=== PATIENT | female | born 1970 | race Caucasian/White ===

== ENCOUNTER 2016-08-02 12:22 | Emergency (ER) | payer MEDICARE, MEDICAID ==
[~2016-08-02] VITALS: Ht 165.1 cm; Wt 125.2 kg
[~2016-08-02 12:22] MED LIST: ARIP20TA PO; ARIP2TAB10 PO; ARMO250T3 PO; CHLO473M4 MM; CLIN300C3 PO; DESV100T PO; ESCI20TA2; GABA-488 PO; HYDR-229 PO; HYDR-3812 PO; IBUP200C92 PO; KETO-22 PO; LAMO150T2 PO; LEVO500T69 PO; LURA80TA PO; METF500T4 PO; MTF500T; NAPR-243 PO; NAPR500T3 PO; NUVIGIL; ORPH100T PO; PHEN200T27 PO; PRD20T PO; QUET50TA43 PO; SULF1TAB38 PO; SUMA100T3 PO; TIZA2TAB3 PO; TOPI200T19 PO; TRAM50TA2 PO; ZPR80C
[2016-08-02] MEDS ORDERED: HYDR50TA3 PO (13:03)
[2016-08-02] MEDS ORDERED: MECL-106 PO (13:03)
[2016-08-02] MEDS ORDERED: OXYB5TAB9 PO (13:03)
[2016-08-02] MEDS ORDERED: PROP20TA5 PO (13:03)
[2016-08-02] MEDS ORDERED: CITA20TA7 PO (13:03)
[2016-08-02] MEDS ORDERED: ATOR10TA66 PO (13:03)
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
[2016-08-02 13:39] LABS: BASOPHILS # (AUTO) 0.1 10^3/uL (0.0-0.1); BASOPHILS % (AUTO) 1 % (0-10); EOSINOPHILS # (AUTO) 0.2 10^3/uL (0.0-0.3); EOSINOPHILS % (AUTO) 2 % (0-10); LYMPHOCYTES # (AUTO) 3.7 X 10^3 (1.0-4.0); LYMPHOCYTES % (AUTO) 28 % (12-44); MEAN CORPUSCULAR HEMOGLOBIN 30 PG (25-34); MEAN CORPUSCULAR HGB CONC 35 G/DL (32-36); MEAN CORPUSCULAR VOLUME 85 FL (80-99); MEAN PLATELET VOLUME 10.7 FL (7.4-10.4); MONOCYTES % (AUTO) 8 % (0-12); NEUTROPHILS # (AUTO) 8.5 X 10^3 (1.8-7.8); NEUTROPHILS % (AUTO) 63 % (42-75); PLATELET COUNT 326 10^3/uL (130-400); RED BLOOD COUNT 5.08 10^6/uL (4.35-5.85); RED CELL DISTRIBUTION WIDTH 13.2 % (10.0-14.5); WHITE BLOOD COUNT 13.5 10^3/uL (4.3-11.0)
[2016-08-02 13:56] LABS: ALANINE AMINOTRANSFERASE 30 U/L (0-55); ANION GAP 11 MMOL/L (5-14); ASPARTATE AMINO TRANSFERASE 12 U/L (5-34); BILIRUBIN,TOTAL 0.2 MG/DL (0.1-1.0); BLOOD UREA NITROGEN 13 MG/DL (7-18); BUN/CREATININE RATIO 15; CALCIUM 8.8 MG/DL (8.5-10.1); CARBON DIOXIDE 16 MMOL/L (21-32); CHLORIDE 111 MMOL/L (98-107); CREATININE SERUM 0.84 MG/DL (0.60-1.30); GFR ESTIMATED > 60; GLUCOSE 105 MG/DL (70-105); POTASSIUM 3.9 MMOL/L (3.6-5.0); SODIUM 138 MMOL/L (135-145); TOTAL PROTEIN 6.9 G/DL (6.4-8.2)
--- NOTE | 2016-08-02 14:26 | Diagnostic Imaging Report ---
PROCEDURE: CT urinary tract, rule out kidney stone. TECHNIQUE: Multiple contiguous axial images were obtained through the abdomen and pelvis without the use of intravenous contrast. INDICATION: Right lower quadrant pain The previous CT chest, abdomen and pelvis exam of 07/21/13, noted nonobstructive calculi involving the left kidney. There is no sign of an acute abnormality however. On this exam, there are now nonobstructive calculi involving both kidneys. The largest calculus on the left measures 1.5 CM. The largest calculus on the right measures only 0.3 CM. There is no evidence for urolithiasis and the kidneys do not seem to be obstructed. The urinary bladder is grossly unremarkable. The uterus is not enlarged. There is no pelvic mass or free fluid collection noted. The appendix was visualized and the appendix is not abnormally thickened. The liver, spleen, pancreas, adrenals, gallbladder, aorta and inferior vena cava show no sign of an acute abnormality. The stomach is not well-distended and consequently difficult to assess. The lung bases are generally clear. The bone windows show no evidence for a fracture or for a destructive lesion. There is degenerative disc and bony disease at L3-4, L4-5 and L5-S1. IMPRESSION: 1. There are nonobstructive calculi within both kidneys but there is no sign of obstruction of either collecting system by a calculus. 2. No other acute abnormality of the the abdomen or pelvis is noted. In particular there is no sign of appendicitis. 3. There is degenerative disc and bony disease at L3-4, L4-5 and L5-S1. Dictated by: Dictated on workstation # [id number]
[2016-08-02 14:41] LABS: BILIRUBIN,URINE NEGATIVE (NEGATIVE); KETONES,URINE NEGATIVE (NEGATIVE); LEUKOCYTE ESTERASE ,URINE 1+ (NEGATIVE); NITRITE,URINE NEGATIVE (NEGATIVE); PH,URINE 7 (5-9); PROTEIN,URINE 1+ (NEGATIVE); UROBILINOGEN,URINE NORMAL (NORMAL)
[2016-08-02] MEDS ORDERED: KETOROLAC 30 MG/ML VIAL IVP ONE (15:00)
[2016-08-02 15:02] LABS: CALCIUM OXALATE CRYSTALS,UR MODERATE /LPF
[2016-08-02 15:23] VITALS: BP 134/91
== END 2016-08-02 15:23 | disposition home or self-care (01) ==
LOC: EDUNIT# 12:22 → ER 12:24
DX: R10.31 Right lower quadrant pain (principal); N20.0 Calculus of kidney; M51.36 Other intervertebral disc degeneration, lumbar region; R11.2 Nausea with vomiting, unspecified; E11.9 Type 2 diabetes mellitus without complications; F17.210 Nicotine dependence, cigarettes, uncomplicated; Z79.899 Other long term (current) drug therapy; Z79.84 Long term (current) use of oral hypoglycemic drugs
CPT/HCPCS: 36415; 74176; 80053; 81000; 84703; 85025; 96374

== ENCOUNTER 2016-08-29 09:36 | Emergency (ER) | payer MEDICARE, MEDICAID ==
[~2016-08-29] VITALS: Ht 167.6 cm; Wt 104.3 kg
[~2016-08-29 09:36] MED LIST changes: +ATOR10TA66 PO; +CITA20TA7 PO; +HYDR50TA3 PO; +MECL-106 PO; +OXYB5TAB9 PO; +PROP20TA5 PO
[2016-08-29] MEDS ORDERED: fentaNYL INJECTION 100 MCG/2 ML AMP IVP STA (10:14)
--- NOTE | 2016-08-29 10:23 | Diagnostic Imaging Report ---
EXAM: HUMERUS, RIGHT, 2 VIEWS INDICATION: Arm pain. Fall. COMPARISON: None. FINDINGS: Comminuted moderately displaced fracture involving the proximal right humeral diaphysis. The humeral head appears normally aligned with the glenoid fossa. IMPRESSION: Comminuted and moderately displaced fracture of the proximal right humeral diaphysis. Dictated by: Dictated on workstation # [id number]
--- NOTE | 2016-08-29 10:24 | Diagnostic Imaging Report ---
INDICATION: Knee pain EXAMINATION: Left knee 08/29/2016 FINDINGS: 3 views of the knee There is a fracture at the tip of the fibula with an avulsion fracture fragment proximally displaced. Adjacent lucency in the more distal fibular head also noted and nondisplaced in nature. The visualized tibia and femur are intact. No dislocations. Mild soft tissue prominence seen about the joint. IMPRESSION: 1. Fractures of the proximal fibula. Remaining visualized osseous structures intact. Dictated by: Dictated on workstation # [id number]
[2016-08-29] MEDS ORDERED: HYDROmorphone (DILAUDID) 2 MG/ML VIAL IVP STA (11:33)
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
[2016-08-29 11:41] LABS: BASOPHILS # (AUTO) 0.1 10^3/uL (0.0-0.1); BASOPHILS % (AUTO) 0 % (0-10); EOSINOPHILS # (AUTO) 0.2 10^3/uL (0.0-0.3); EOSINOPHILS % (AUTO) 1 % (0-10); LYMPHOCYTES % (AUTO) 15 % (12-44); MEAN CORPUSCULAR HEMOGLOBIN 29 PG (25-34); MEAN CORPUSCULAR HGB CONC 34 G/DL (32-36); MEAN CORPUSCULAR VOLUME 86 FL (80-99); MONOCYTES # (AUTO) 1.1 X 10^3 (0.0-1.0); MONOCYTES % (AUTO) 5 % (0-12); NEUTROPHILS # (AUTO) 15.5 X 10^3 (1.8-7.8); NEUTROPHILS % (AUTO) 78 % (42-75); PLATELET COUNT 289 10^3/uL (130-400); RED CELL DISTRIBUTION WIDTH 13.1 % (10.0-14.5); WHITE BLOOD COUNT 19.8 10^3/uL (4.3-11.0)
[2016-08-29 11:55] LABS: ALANINE AMINOTRANSFERASE 22 U/L (0-55); ALBUMIN 3.5 G/DL (3.2-4.5); ANION GAP 12 MMOL/L (5-14); ASPARTATE AMINO TRANSFERASE 17 U/L (5-34); BILIRUBIN,TOTAL 0.2 MG/DL (0.1-1.0); BLOOD UREA NITROGEN 18 MG/DL (7-18); BUN/CREATININE RATIO 21; CALCIUM 8.5 MG/DL (8.5-10.1); CARBON DIOXIDE 15 MMOL/L (21-32); CHLORIDE 107 MMOL/L (98-107); CREATININE SERUM 0.84 MG/DL (0.60-1.30); GFR ESTIMATED > 60; GLUCOSE 170 MG/DL (70-105); POTASSIUM 4.1 MMOL/L (3.6-5.0); SODIUM 134 MMOL/L (135-145); TOTAL PROTEIN 6.4 G/DL (6.4-8.2)
[2016-08-29] MEDS ORDERED: HYDR-3063 PO (12:08)
[2016-08-29 12:09] LABS: BAND NEUTROPHILS 3 %; BASOPHILS % (MANUAL) 1 %; EOSINOPHILS % (MANUAL) 2 %; LYMPHOCYTES % (MANUAL) 25 %; NEUTROPHILS % (MANUAL) 63 %
[2016-08-29 12:13] VITALS: BP 123/76
== END 2016-08-29 12:13 | disposition home or self-care (01) ==
LOC: EDUNIT# 09:36 → ER 09:37
DX: S42.351A Displaced comminuted fracture of shaft of humerus, right arm, initial encounter for closed fracture (principal); S82.832A Other fracture of upper and lower end of left fibula, initial encounter for closed fracture; E11.9 Type 2 diabetes mellitus without complications; F17.210 Nicotine dependence, cigarettes, uncomplicated; Z79.84 Long term (current) use of oral hypoglycemic drugs; Z79.899 Other long term (current) drug therapy; W01.198A Fall on same level from slipping, tripping and stumbling with subsequent striking against other object, initial encounter; Y92.012 Bathroom of single-family (private) house as the place of occurrence of the external cause; Y99.8 Other external cause status
CPT/HCPCS: 36415; 73060; 73562; 80053; 85007; 85027; 96374; 96375

== ENCOUNTER 2016-08-31 12:17 | Emergency (ER) | payer MEDICARE, MEDICAID ==
[~2016-08-31] VITALS: Ht 167.6 cm; Wt 104.5 kg
[~2016-08-31 12:17] MED LIST changes: +HYDR-3063 PO
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
[2016-08-31] MEDS ORDERED: OXYC-201 PO (13:55)
[2016-08-31] MEDS ORDERED: oxyCODONE/APAP 5/325MG (PERCOCET 5) TABLET PO STA (13:58)
[2016-08-31] MEDS ORDERED: CYCL10TA9 PO (13:59)
[2016-08-31 14:07] VITALS: BP 120/84
== END 2016-08-31 14:07 | disposition home or self-care (01) ==
LOC: EDUNIT# 12:17 → ER 12:18
DX: S42.301A Unspecified fracture of shaft of humerus, right arm, initial encounter for closed fracture (principal); S82.832A Other fracture of upper and lower end of left fibula, initial encounter for closed fracture; Z76.0 Encounter for issue of repeat prescription; W19.XXXA Unspecified fall, initial encounter; Y99.8 Other external cause status
CPT/HCPCS: 99281

== ENCOUNTER 2016-09-02 11:05 | Outpatient (CLI) | payer MEDICARE, MEDICAID ==
[~2016-09-02] VITALS: Ht 167.6 cm; Wt 125.2 kg
[~2016-09-02 11:05] MED LIST changes: +CYCL10TA9 PO; +OXYC-201 PO
[2016-09-02 11:36] VITALS: BP 110/62
--- NOTE | 2016-09-02 12:37 | Diagnostic Imaging Report ---
CLINICAL INDICATION: Preop for right humeral nailing. Patient states no chest complaints. Exam: Chest x-ray PA and lateral views. Comparisons: Chest x-ray dated 04/08/2016. Findings: Lungs/pleura: Lungs are clear. There is no pneumothorax. There is no pleural effusion. Mediastinum: Unremarkable. Pulmonary vasculature: Unremarkable. Heart: Unremarkable. Bones/extrathoracic soft tissue: Unremarkable. Impression: There is no radiographic evidence of acute cardiopulmonary process. Dictated by: Dictated on workstation # [id number]
[2016-09-02 12:39] LABS: BILIRUBIN,URINE NEGATIVE (NEGATIVE); KETONES,URINE NEGATIVE (NEGATIVE); LEUKOCYTE ESTERASE ,URINE 1+ (NEGATIVE); NITRITE,URINE NEGATIVE (NEGATIVE); PH,URINE 6 (5-9); PROTEIN,URINE 1+ (NEGATIVE); UROBILINOGEN,URINE NORMAL (NORMAL)
[2016-09-02 12:52] LABS: PROTHROMBIN TIME PATIENT 12.8 SEC (12.2-14.7)
[2016-09-04] MEDS ORDERED: OXYC-465 PO (14:00)
== END 2016-09-02 13:42 | disposition home or self-care (01) ==
LOC: PREOP 11:05
PROVIDERS: ATTEND Orthopaedic Surgery
DX: Z01.810 Encounter for preprocedural cardiovascular examination (principal); Z01.811 Encounter for preprocedural respiratory examination; Z01.812 Encounter for preprocedural laboratory examination; Z11.2 Encounter for screening for other bacterial diseases; S42.301A Unspecified fracture of shaft of humerus, right arm, initial encounter for closed fracture; W19.XXXA Unspecified fall, initial encounter; Y92.019 Unspecified place in single-family (private) house as the place of occurrence of the external cause; Y99.8 Other external cause status
CPT/HCPCS: 36415; 71020; 81000; 84703; 85610; 86850; 86900; 86901; 87081

== ENCOUNTER 2016-09-04 11:33 | Day surgery (SDC) | payer MEDICARE, MEDICAID ==
[~2016-09-04] VITALS: Ht 167.6 cm; Wt 125.2 kg
[2016-09-04] MEDS ORDERED: ceFAZolin 2 GM/50 ML NS 50 ML IV ONE (11:36)
[2016-09-04] MEDS ORDERED: FAMOTIDINE 20MG/2ML IV (PEPCID) ONE (11:40)
[2016-09-04] MEDS: LACTATED RINGERS 1,000 ML IV PRN ×3 (11:44→15:42)
[2016-09-04] MEDS ORDERED: FAMOTIDINE 20MG/2ML IV (PEPCID) IV ONE (11:45)
[2016-09-04] MEDS ORDERED: ROCURONIUM 50 MG/5 ML (ZEMURON) VIAL IV ONE (11:46)
[2016-09-04] MEDS ORDERED: ONDANSETRON 4 MG/2 ML (SDV) Z0FRAN ONE (11:46)
[2016-09-04] MEDS ORDERED: proPOfol 200 MG/20 ML (DIPRIVAN) VIAL IV ONE (11:46)
[2016-09-04] MEDS ORDERED: SEVOFLURANE (ULTANE) 15 ML INHAL SOLN ONE (11:46)
[2016-09-04] MEDS ORDERED: LIDOCAINE PF 2% 10 ML (XYLOCAINE) AMP ONE (11:46)
[2016-09-04] MEDS ORDERED: LACTATED RINGERS 1,000 ML IV ONE ×2 (11:46→13:38)
[2016-09-04] MEDS ORDERED: MIDAZOLAM 2 MG/2 ML (VERSED) VIAL ONE (11:46)
[2016-09-04] MEDS ORDERED: fentaNYL INJECTION 250 MCG/5 ML AMP ONE (11:46)
[2016-09-04] MEDS ORDERED: fentaNYL INJECTION 100 MCG/2 ML AMP ONE (11:49)
[2016-09-04] MEDS ORDERED: fentaNYL INJECTION 100 MCG/2 ML AMP IVP PRN (12:00)
[2016-09-04 12:04] VITALS: BP 111/48
--- NOTE | 2016-09-04 12:33 | Progress Note-Pre Operative ---
Pre-Operative Progress Note H&P Reviewed The H&P was reviewed, patient examined and no changes noted. Date H&P Reviewed: Sep 04, 2016 Time H&P Reviewed: 12:31 Pre-Operative Diagnosis: Right comminuted displaced humeral fracture. LOLLY CAPPS MD Sep 04, 2016 12:32
[2016-09-04] MEDS ORDERED: oxyCODONE/APAP 10/325MG (PERCOCET 10) TABLET PO PRN (12:45)
[2016-09-04] MEDS ORDERED: ceFAZolin 2 GM/NS 50 ML IV ONE (12:45)
[2016-09-04] MEDS ORDERED: KETOROLAC 30 MG/ML VIAL IVP PRN (12:45)
[2016-09-04] MEDS ORDERED: ONDANSETRON 4 MG/2 ML (SDV) Z0FRAN IV PRN ×2 (12:45→14:45)
[2016-09-04] MEDS ORDERED: ACETAMINOPHEN 325 MG TABLET/CAPLET (TYLENOL) PO PRN (12:45)
[2016-09-04] MEDS ORDERED: morphine INJ 10 MG/ML 1ML (SYR OR VIAL) ONE (13:54)
--- NOTE | 2016-09-04 13:56 | Progress Note-Post Operative ---
Post-Operative Progess Note Assistant [employer] Manager Operations Darryl Meyer PA-C Pre-Operative Diagnosis Right comminuted displaced humeral fracture. Post-Operative Diagnosis same Post-Op Procedure Note Date of Procedure: Sep 04, 2016 Name of Procedure: Intramedullary nailing right humerus Procedure Note/Findings See dictation #[id number] Anesthesia Type General Estimated blood loss (mL): 100 ml Packing: none Specimen(s) collected none LOLLY CAPPS MD Sep 04, 2016 13:56
[2016-09-04] MEDS ORDERED: OXYC-465 PO (14:00)
--- NOTE | 2016-09-04 14:02 | Discharge Inst-Surgical ---
Discharge Inst-Surgical Depart Medication/Instructions New, Converted or Re-Newed RX: RX on Chart Consults/Follow Up Goal/Follow Up Appt.: Follow up with Dr. Mejía in 2 weeks Patient Instructions: Keep incisions dry No lifting right arm. Keep it in a sling Activity Activity as Tolerated: No no lifting right arm Activity Instructions: Avoid Pulling & Pushing, Avoid Stress to Incision Driving Instructions: No Driving/Refer to Dr. Marquez Driving When on Pain Meds: Yes Incentive Spirometry: Every 2 Hours While Awake Avoid ALL Tobacco Products: Smoking of Any Kind Diet Discharge Diet: ADA Diet Diet for 24 Hours: No Alcohol Diet After 24 Hours: Clear Liquid if Nauseous Symptoms to Report to Physicia: Numbness/Tingling, Swelling Increased, Bleeding Excessive, Pain Increased, Fever Over 101 Degrees F If Any Problems/Questions/Issu: Go to Emergency Room Skin/Wound Care Infection Signs and Symptoms: Increased Redness, Foul Odor of Wound, Increased Drainage, Skin Itchy or Has a Rash, Increased Swelling, Temperature Above 101 F Bathing Instructions: LOLLY Michelle MD Sep 04, 2016 14:02
[2016-09-04] MEDS: morphine INJ 10 MG/ML 1ML (SYR OR VIAL) IV PRN ×2 (14:34→15:42)
[2016-09-04] MEDS ORDERED: PROMETHAZINE INJ 25 MG/ML (PHENERGAN) AMP IV PRN (14:45)
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
--- NOTE | 2016-09-04 18:16 | Diagnostic Imaging Report ---
INDICATION: Followup right humeral fracture. DISCUSSION: Fluoroscopic support was provided during intraoperative open reduction and internal fixation of the right humerus with an intramedullary lazaro and fixating screws. One of the proximal fixating screws extends through the contralateral cortex which is of uncertain clinical significance. Fluoroscopy time: 86 seconds. IMPRESSION: 1. Intraoperative ORIF of the right humerus. One of the two proximal fixating screws does extend through the contralateral cortex near the glenohumeral joint. Dictated by: Dictated on workstation # [id number]
[2016-09-04] MEDS ORDERED: morphine INJ 10 MG/ML 1ML (SYR OR VIAL) IV PRN (18:30)
[2016-09-04] MEDS: oxyCODONE/APAP 5/325MG (PERCOCET 5) TABLET PO PRN (19:54)
[2016-09-04 19:55] VITALS: BP 120/74
[2016-09-05] VITALS: BP 112/54
[2016-09-05] MEDS ORDERED: VANCOMYCIN IV ADD-VANTAGE 1,000 MG in SODIUM CHLORIDE (ADD-VANTAGE) 250 ML IV NR (00:45)
[2016-09-05] MEDS: oxyCODONE/APAP 5/325MG (PERCOCET 5) TABLET PO PRN ×2 (01:18→04:56)
[2016-09-05 04:00] VITALS: BP 117/57
--- NOTE | 2016-09-05 07:48 | Progress Note (SOAP) ---
Subjective Subjective/Events-last exam No complaints, up to chair , pain controlled, ready to go home. Objective Exam Vital Signs Date Time Temp Pulse Resp B/P Pulse Ox O2 Delivery O2 Flow Rate FiO2 09/05/16 04:00 98.9 78 20 117/57 95 Room Air 09/05/16 00:00 98.7 81 20 112/54 96 Room Air 09/04/16 19:55 NIV/CPAP 09/04/16 19:55 98.9 74 22 120/74 96 Room Air 09/04/16 15:10 Nasal Cannula 3.00 09/04/16 12:04 99.7 79 20 111/48 96 Room Air I & O 09/05/16 07:00 Intake Total 3600 ml Output Total 300 ml Balance 3300 ml Capillary Refill : Less Than 3 Seconds General Appearance: No Apparent Distress Cardiovascular: Normal Peripheral Pulses Extremity: Swelling Other (minimal drainage on dressing right arm) Neurologic/Psychiatric: No Motor/Sensory Deficits Results Lab Laboratory Tests 09/04/16 11:29: Glucometer 101 Assessment/Plan Assessment/Plan Assess & Plan/Chief Complaint S/P RIght humeral nailing D/C Home, instructions given Diagnosis/Problems: Clinical Quality Measures DVT/VTE Risk/Contraindication: Risk Factor Score Per Nursin RFS Level Per Nursing on Admit: 4+=Very High MACY BENNETT MD Sep 05, 2016 7:48 am
[2016-09-05 08:45] VITALS: BP 117/57
--- NOTE | 2016-09-06 09:05 | OPERATIVE REPORT ---
PROCEDURE PHYSICIAN: LOLLY CAPPS DATE OF PROCEDURE: 09/04/2016 PREOPERATIVE DIAGNOSIS: Right comminuted displaced humeral diaphyseal fracture. POSTOPERATIVE DIAGNOSIS: Right comminuted displaced humeral diaphyseal fracture. PROCEDURE: Intramedullary nailing of right humerus fracture. SURGEON: Dr. Capps ASSISTING: FREDA Mark. HOTEL CONTROLLER SURGEON DUTIES: Patient positioning, retraction, wound closure, use of internal fixation devices, application sterile dressings. Use of fire control assistant to surgeon as medically indicated. ANESTHESIA: General. COMPLICATIONS: None. BLOOD LOSS: 100 mL IMPLANTS: Synthes 7 mm diameter, 250 mm length humeral nail. INDICATIONS: This lady came to the emergency room last week and was noted to have a right comminuted humerus fracture. She saw both Dr. Jamison and Dr. Knowles and was referred to [place] for intramedullary nailing of the humerus. PROCEDURE IN DETAIL: After informed consent, the patient was transported to the operating room. She was placed on operating table in the supine position. General anesthesia was induced. She was then moved to the center of the table so that the right arm would be in the radiolucent portion of the table. C-arm was brought in from the opposite side and good view of the humerus could be obtained from the shoulder all the way down to the elbow. Right upper extremity then was prepped with ChloraPrep and draped in the sterile fashion. The C-arm was brought in. Starting incision was made over the superior aspect of the right shoulder and was split through the deltoid. Due to the morbid obesity, this was done percutaneously. A drill was used to drill a guide pin into the center of the humeral head as noted on the C-arm, right off the edge of the acromion. It was drilled down the shaft of the humerus and felt to go down the shaft. The rigid reamer was used to ream over the guide pin and then a flexible guidewire then was placed percutaneously along the side of the initial rigid guide pin. The guide pin was removed and the guidewire was manipulated passed the fracture to the distal humerus without difficulty and impacted at the distal humerus. The length was measured a 7 mm diameter by 250 mm length nail was chosen. The humerus then was reamed up to an 8. The nail was placed over the guidewire down to the distal humerus. The guide wire was removed. I then impacted the nail until it was seen to be at the appropriate depth on the humeral head and not be prominent. Using the aiming device, a second incision was made over the lateral arm and a locking screw was placed proximally using the drill sleeve, drill bit and placing appropriate length screw. Next, just above that, a helical blade was placed using the insertion device and guide pin and impacted in the helical blade in the appropriate position. The insertion device was removed and a locking end cap was placed on the end of the nail. C-arm images showed that the proximal aspect of the nail was 1 to 2 mm prominent but upon palpation, the nail was actually recessed beneath the rotator cuff and not prominent. Next AP images made of the distal humerus and a 3rd incision was made over the anterior distal humerus and drill bit was drilled across the distal humerus through the most distal hole and distal locking screw was placed obtaining good purchase. The wounds were thoroughly irrigated. Hardcopy C-arm images showed the fractures were out to length. The fracture was very comminuted but the position appeared to be satisfactory. The wounds were thoroughly irrigated and closed in layers with 0 Vicryl, 2-0 Vicryl and jean carlos. A bulky dressing was applied. She was placed back in a sling and transferred to the recovery in stable condition. Job ID: [id number] Dictated Date: 09/04/2016 13:52:50 Custodial Officer Date: 09/06/2016 08:54:56 / tiago
== END 2016-09-05 07:49 ==
LOC: SDC 11:33 → 4TH 15:05 → SDC 09-05 07:49
PROVIDERS: ATTEND Orthopaedic Surgery
DX: S42.351A Displaced comminuted fracture of shaft of humerus, right arm, initial encounter for closed fracture (principal); W19.XXXA Unspecified fall, initial encounter; Y92.019 Unspecified place in single-family (private) house as the place of occurrence of the external cause; Y99.8 Other external cause status; E11.9 Type 2 diabetes mellitus without complications; Z79.84 Long term (current) use of oral hypoglycemic drugs
CPT/HCPCS: 82962; 86850; 86900; 86901; 94664

== ENCOUNTER 2016-10-09 19:10 | Emergency (ER) | payer MEDICARE, MEDICAID ==
[~2016-10-09] VITALS: Ht 167.6 cm; Wt 113.4 kg
[~2016-10-09 19:10] MED LIST changes: +OXYC-465 PO
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
--- NOTE | 2016-10-09 19:31 | Diagnostic Imaging Report ---
EXAMINATION: Three views of the left knee. INDICATION: Left knee pain. COMPARISON: August 29, 2016. FINDINGS: There is a comminuted fracture involving the head of the left fibula. There is no evidence of a fracture of the distal femur, proximal tibia or the patella. There appears to be a moderate joint effusion. IMPRESSION: Comminuted fracture involving the head of the left fibula. Alignment is normal. No additional fracture demonstrated. This fibular head fracture was also demonstrated on prior study from August 29, 2016. Dictated by: Dictated on workstation # [id number]
[2016-10-09 19:58] VITALS: BP 125/71
--- OUTSIDE RECORDS SUMMARY | 2016-10-25 04:03 | XMS REPORT ---
Author Author AGUSTÍN SORENSON Organization [facility] [place] Address [address] [place] [address] Care Team Providers Care Construction Electrician Name Role Phone AGUSTÍN SORENSON Unavailable PROBLEMS Type Condition ICD9-CM Code ZAV98-UB Code Onset Dates Condition Status SNOMED Code Problem Lumbago with sciatica, unspecified side M54.40 Active 544799573 Problem Gastroesophageal reflux disease with esophagitis K21.0 Active 917597949 Problem Morbid obesity due to excess calories E66.01 Active 197531369 Problem Chronic obstructive pulmonary disease, unspecified COPD type J44.9 Active 46046700 Problem Other chronic pain G89.29 Active 42038164 Problem Bipolar 1 disorder F31.9 Active 702967416 Problem Stress incontinence (female) (male) N39.3 Active 31446337 Problem Type 2 diabetes mellitus with hyperosmolarity without coma, without long-term current use of insulin E11.00 Active 81287263 Problem Chronic fatigue R53.82 Active 16057617 Problem Hypercholesterolemia E78.00 Active 56087619 Problem Encounter for immunization Z23 Active 119639689 ALLERGIES No Known Allergies SOCIAL HISTORY No smoking Hx information available PLAN OF CARE VITAL SIGNS MEDICATIONS No Known Medications RESULTS No Results PROCEDURES No Known procedures IMMUNIZATIONS No Known Immunizations
--- OUTSIDE RECORDS SUMMARY | 2016-10-25 04:03 | XMS REPORT ---
Author AGUSTÍN Mc [facility] e[employer] Address Unknown Phone Unavailable Care Team Providers Care Rn Postpartum Name Role Phone AGUSTÍN SORENSON Unavailable Allergies No Known Allergies Problems Problem Type Condition Code Onset Dates Condition Status Problem Chronic fatigue R53.82 Active Problem Gastroesophageal reflux disease with esophagitis K21.0 Active Problem Type 2 diabetes mellitus with hyperosmolarity without coma, without long-term current use of insulin E11.00 Active Problem Other chronic pain G89.29 Active Problem Morbid obesity due to excess calories E66.01 Active Problem Lumbago with sciatica, unspecified side M54.40 Active Medications Medication Code System Code Instructions Start Date End Date Status Dosage Atorvastatin Calcium [facility] [address]-57 10 mg Orally Once a day Feb 21, 2016 1 tablet Results No Known Results Summary Purpose eClinicalWorks Submission
--- OUTSIDE RECORDS SUMMARY | 2016-10-25 04:04 | XMS REPORT ---
Author Author AGUSTÍN SORENSON [facility] [place] eClinical[employer] Address Unknown Phone Unavailable Care Team Providers Care Regenerator Operator Name Role Phone AGUSTÍN SORENSON Unavailable Allergies [...] with sciatica, unspecified side M54.40 Active Medications No Known Medications Results No Known Results Summary Purpose eClinicalWorks Submission
--- OUTSIDE RECORDS SUMMARY | 2016-10-25 04:04 | XMS REPORT ---
Author Author AGUSTÍN SORENSON [facility] e[employer] Address Unknown Phone Unavailable Care Team Providers Care Satellite Television Installer Name Role Phone AGUSTÍN SORENSON CP Unavailable Allergies No Known Allergies Problems Problem Type Condition Code Onset Dates Condition Status Problem Gastroesophageal reflux disease with esophagitis K21.0 Active Problem Type 2 diabetes mellitus with hyperosmolarity without coma, without long-term current use of insulin E11.00 Active Problem Chronic fatigue R53.82 Active Problem Migraine without status migrainosus, not intractable, unspecified migraine type G43.909 Active Problem Anxiety about health F41.8 Active Problem Edema, unspecified type R60.9 Active Problem Hypercholesterolemia E78.00 Active Problem Encounter for immunization Z23 Active Problem Bipolar 1 disorder F31.9 Active Problem Stress incontinence (female) (male) N39.3 Active Problem Chronic obstructive pulmonary disease, unspecified COPD type J44.9 Active Problem Other chronic pain G89.29 Active Problem Lumbago with sciatica, unspecified side M54.40 Active Problem Morbid obesity due to excess calories E66.01 Active Medications Medication Code System Code Instructions Start Date End Date Status Dosage Metformin HCl [facility] [address]-68 500 MG Orally Twice a day May 29, 2016 1 tablet with meals Tizanidine HCl [facility] [address]-95 2 MG Orally every 8 hrs 1 tablet as needed Results No Known Results Summary Purpose eClinicalWorks Submission
--- OUTSIDE RECORDS SUMMARY | 2016-10-25 04:04 | XMS REPORT ---
Author Author CHIDI SMITH Organization [employer] Address Unknown Phone Unavailable Care Team Providers Care Toll Transmission Worker Name Role Phone CHIDI SMITH CP Unavailable Allergies No Known Allergies Problems Problem Type Condition Code Onset Dates Condition Status Problem Other, multiple, and unspecified sites, insect bite, nonvenomous, without mention of infection 919.4 Active Problem Female stress incontinence 625.6 Active Problem Nondependent tobacco use disorder 305.1 Active Problem Other chronic pain 338.29 Active Problem Need for prophylactic vaccination and inoculation, Influenza V04.81 Active Problem Migraine, unspecified without mention of intractable migraine without mention of status migrainosus 346.90 Active Problem Primary localized osteoarthrosis, lower leg 715.16 Active Problem Lumbago 724.2 Active Problem Polycystic ovaries 256.4 Active Problem Esophageal reflux 530.81 Active Problem Obesity, unspecified 278.00 Active Problem Other sleep disturbances 780.59 Active Medications No Known Medications Results No Known Results Summary Purpose [employer] Submission
--- OUTSIDE RECORDS SUMMARY | 2016-10-25 04:04 | XMS REPORT ---
Author Author AGUSTÍN SORENSON Organization [facility] [place] Address [address] [place] [address] Care Team Providers Care Ur Coordinator Name Role Phone AGUSTÍN SORENSON Unavailable PROBLEMS Type Condition ICD9-CM Code [id number] Code Onset Dates Condition Status SNOMED Code Problem Lumbago with sciatica, unspecified side M54.40 Active 225992788 Problem Gastroesophageal reflux disease with esophagitis K21.0 Active 491224814 Problem Morbid obesity due to excess calories E66.01 Active 801641848 Problem Chronic obstructive pulmonary disease, unspecified COPD type J44.9 Active 06201618 Problem Other chronic pain G89.29 Active 32263050 Problem Bipolar 1 disorder F31.9 Active 282005713 Problem Stress incontinence (female) (male) N39.3 Active 91936120 Problem Type 2 diabetes mellitus with hyperosmolarity without coma, without long-term current use of insulin E11.00 Active 91455280 Problem Chronic fatigue R53.82 Active 82308232 Problem Hypercholesterolemia E78.00 Active 64373389 Problem Encounter for immunization Z23 Active 797587189 ALLERGIES No Known Allergies SOCIAL HISTORY No smoking Hx information available PLAN OF CARE VITAL SIGNS MEDICATIONS Medication Instructions Dosage Frequency Start Date End Date Duration Status Proventil HFA 108 (90 Base) MCG/ACT Inhalation every 4 hrs 2 puffs as needed 4h 20 Mar, 2016 Active RESULTS No Results PROCEDURES No Known procedures IMMUNIZATIONS No Known Immunizations
--- OUTSIDE RECORDS SUMMARY | 2016-10-25 04:04 | XMS REPORT ---
Author Author AGUSTÍN SORENSON Organization [facility] Address [address] [place] [address] Care Team Providers Care Boarding Mother Name Role Phone SORENSON, AGUSTÍN Unavailable PROBLEMS Type Condition ICD9-CM Code [id number] Code Onset Dates Condition Status SNOMED Code Problem Gastroesophageal reflux disease with esophagitis K21.0 Active 384144404 Problem Type 2 diabetes mellitus with hyperosmolarity without coma, without long-term current use of insulin E11.00 Active 39638433 Problem Chronic fatigue R53.82 Active 88081702 Problem Migraine without status migrainosus, not intractable, unspecified migraine type G43.909 Active 53277389 Problem Anxiety about health F41.8 Active 884083458 Problem Hypercholesterolemia E78.00 Active 29427516 Problem Encounter for immunization Z23 Active 375080508 Problem Bipolar 1 disorder F31.9 Active 688873791 Problem Stress incontinence (female) (male) N39.3 Active 42515707 Problem Chronic obstructive pulmonary disease, unspecified COPD type J44.9 Active 85013568 Problem Other chronic pain G89.29 Active 22209989 Problem Lumbago with sciatica, unspecified side M54.40 Active 169249385 Assessment Left-sided chest wall pain R07.89 Mar, Active 878197724 Problem Morbid obesity due to excess calories E66.01 Active 110600746 ALLERGIES Substance Reaction Event Type Date Status Penicillin V Potassium Unknown Drug Allergy Mar, Active Iodine Unknown Drug Allergy Mar, Active SOCIAL HISTORY No smoking Hx information available PLAN OF CARE VITAL SIGNS Height 68 in 2016-04-09 Weight 266.3 lbs 2016-04-09 Heart Rate 80 bpm 2016-04-09 Respiratory Rate 20 2016-04-09 BMI 40.49 kg/m2 2016-04-09 Blood pressure systolic 124 mmHg 2016-04-09 Blood pressure diastolic 74 mmHg 2016-04-09 MEDICATIONS Medication Instructions Dosage Frequency Start Date End Date Duration Status Atorvastatin Calcium 10 mg Orally Once a day 1 tablet 24h Feb, 30 day(s) Active Tizanidine HCl 2 MG Orally every 8 hrs 1 tablet as needed 8h Active metformin 500 mg take 1 tablet by Oral route 2 times per day with morning and evening meals Jun, Active Hydrochlorothiazide 25 MG Orally twice a day 1 tablet 12h 18 Feb, 2016 Active Topamax 50 MG Orally Twice a day 3 tablets 12h Active Abilify 10 MG Orally Once a day 1 tablet 24h Active Omeprazole 20 mg take 1 capsule (20 mg) by oral route once daily before a meal Feb, Active Sumatriptan Succinate 100 MG Orally Twice a day 1 tablet as needed 12h Active Proventil HFA 108 (90 Base) MCG/ACT Inhalation every 4 hrs 2 puffs as needed 4h Mar, Active Gabapentin 300 MG Orally Three times a day 1 capsule 8h Active RESULTS No Results PROCEDURES Procedure Date Ordered Related Diagnosis Body Site DEXAMETHASONE 4MG/ML (PER 1 MG) Apr 09, 2016 THER/PROPH/DIAG INJ, SC/IM Apr 09, 2016 Office Visit, Est Pt., Level 4 Apr 09, 2016 [facility] VISIT ESTABLISHED PATIENT Apr 09, 2016 IMMUNIZATIONS Vaccine Route Administration Date Status DEXAMETHASONE 4MG/ML (PER 1 MG) IM Intramuscular Apr 09, 2016 Administered
--- OUTSIDE RECORDS SUMMARY | 2016-10-25 04:05 | XMS REPORT ---
Author AGUSTÍN Mc [facility] e[employer] Address Unknown Phone Unavailable Care Team Providers Care Wire Mill Operator Name Role Phone AGUSTÍN SORENSON CP Unavailable Allergies, Adverse Reactions, Alerts Substance Reaction Event Type Penicillin V Potassium Info Not Available Drug Allergy Iodine Info Not Available Drug Allergy Problems Problem Type Condition Code Onset Dates Condition Status Assessment Morbid obesity due to excess calories E66.01 Active Assessment Chronic fatigue R53.82 Active Assessment Gastroesophageal reflux disease with esophagitis K21.0 Active Assessment Other chronic pain G89.29 Active Assessment Lumbago with sciatica, unspecified side M54.40 Active Problem Chronic fatigue R53.82 Active Problem Gastroesophageal reflux disease with esophagitis K21.0 Active Problem Type 2 diabetes mellitus with hyperosmolarity without coma, without long-term current use of insulin E11.00 Active Problem Other chronic pain G89.29 Active Assessment Type 2 diabetes mellitus with hyperosmolarity without coma, without long-term current use of insulin E11.00 Active Problem Morbid obesity due to excess calories E66.01 Active Problem Lumbago with sciatica, unspecified side M54.40 Active Medications Medication Code System Code Instructions Start Date End Date Status Dosage Naproxen [facility] [address]-18 500 MG Orally 2 times a day 1 tablet Nuvigil [facility] [address]-37 200 MG Orally Once a day Jun 08, 2014 1 1/ 2 tablets Gabapentin [facility] [address]-40 300 MG Orally Three times a day 1 capsule Abilify [facility] [address]-79 10 MG Orally Once a day 1 tablet Sumatriptan Succinate [facility] [address]-23 100 MG Orally Twice a day 1 tablet as needed Topamax [facility] [address]-50 50 MG Orally Twice a day 3 tablets Tizanidine HCl [facility] [address]-63 2 MG Orally every 8 hrs 1 tablet as needed metformin [facility] 0 500 mg Jun 21, 2014 take 1 tablet by Oral route 2 times per day with morning and evening meals Procedures Procedure Coding System Code Date MICROALBUMIN, SEMIQUANT CPT-4 05423 Feb 19, 2016 Office Visit, Est Pt., Level 4 CPT-4 65875 Feb 19, 2016 GLYCATED HEMOGLOBIN TEST CPT-4 24667 Feb 19, 2016 Vital Signs Date/Time: Feb 19, 2016 Cardiac Monitoring Heart Rate 108 bpm Weight 267.5 lbs Height 68 in BMI 40.67 Index Blood Pressure Diastolic 82 mmHg Blood Pressure Systolic 138 mmHg Results No Known Results Summary Purpose eClinicalWorks Submission
--- OUTSIDE RECORDS SUMMARY | 2016-10-25 04:06 | XMS REPORT ---
Author AGUSTÍN Mc [facility] [employer] Address Unknown Phone Unavailable Care Team Providers Care Diet Clerk Name Role Phone AGUSTÍN SORENSON CP Unavailable Allergies, Adverse Reactions, Alerts Substance Reaction Event Type Penicillin V Potassium Info Not Available Drug Allergy Iodine Info Not Available Drug Allergy Problems Problem Type Condition Code Onset Dates Condition Status Problem Lumbago with sciatica, unspecified side M54.40 Active Assessment Stress incontinence (female) (male) N39.3 Active Problem Morbid obesity due to excess calories E66.01 Active Assessment Encounter for immunization Z23 Active Problem Gastroesophageal reflux disease with esophagitis K21.0 Active Problem Type 2 diabetes mellitus with hyperosmolarity without coma, without long-term current use of insulin E11.00 Active Problem Chronic fatigue R53.82 Active Problem Migraine without status migrainosus, not intractable, unspecified migraine type G43.909 Active Problem Anxiety about health F41.8 Active Assessment Migraine without status migrainosus, not intractable, unspecified migraine type G43.909 Active Assessment Hypercholesterolemia E78.00 Active Problem Edema, unspecified type R60.9 Active Assessment Bipolar 1 disorder F31.9 Active Problem Hypercholesterolemia E78.00 Active Problem Encounter for immunization Z23 Active Problem Bipolar 1 disorder F31.9 Active Problem Stress incontinence (female) (male) N39.3 Active Assessment Gastroesophageal reflux disease with esophagitis K21.0 Active Assessment Morbid obesity due to excess calories E66.01 Active Assessment Chronic obstructive pulmonary disease, unspecified COPD type J44.9 Active Assessment Lumbago with sciatica, unspecified side M54.40 Active Problem Chronic obstructive pulmonary disease, unspecified COPD type J44.9 Active Problem Other chronic pain G89.29 Active Assessment Type 2 diabetes mellitus with hyperosmolarity without coma, without long-term current use of insulin E11.00 Active Assessment Edema, unspecified type R60.9 Active Medications Medication Code System Code Instructions Start Date End Date Status Dosage Sumatriptan Succinate [facility] [address]-69 100 MG Orally Twice a day 1 tablet as needed Propranolol HCl [facility] [address]-24 20 mg Orally Twice a day Apr 14, 2016 1 tablet Oxybutynin Chloride [facility] [address]-22 5 mg Orally Twice a day Apr 20, 2016 May 20, [address] [facility] [address]-98 10 MG Orally Once a day [address] [facility] [address]-17 500 MG Orally 2 times a day 1 tablet Atorvastatin Calcium [facility] [address]-33 10 mg Orally Once a day Feb 21, [address] [facility] [address]-88 20 mg Feb 23, 2014 take 1 capsule ( 20 mg) by oral route once daily before a meal ProAir HFA [facility] [address]-00 not defined metformin [facility] 0 500 mg Jun 21, 2014 take 1 tablet by Oral route 2 times per day with morning and evening meals Tizanidine HCl [facility] [address]-40 2 MG Orally every 8 hrs 1 tablet as needed Nuvigil [facility] [address]-14 200 MG Orally Once a day Jun 08, 2014 1 1/ [address] [facility] [address]-29 300 MG Orally Three times a day [address] [facility] [address]-10 50 mg Orally Twice a day [address] [facility] [address]-65 50 mg Orally Once a day Apr 14, 2016 1 tablet Procedures Procedure Coding System Code Date Office Visit, Est Pt., Level 4 CPT-4 60318 Apr 20, 2016 FLUARIX QUAD P-FREE 3 AND UP .50 2015 CPT-4 96038 Apr 20, 2016 [facility] VISIT ESTABLISHED PATIENT CPT-4 G0467 Apr 20, 2016 SINGLE IMMUNIZATION ADMIN CPT-4 28947 Apr 20, 2016 Vital Signs Date/Time: Apr 20, 2016 Cardiac Monitoring Heart Rate 92 bpm Weight 279 lbs Height 68 in BMI 42.42 Index Blood Pressure Diastolic 88 mmHg Blood Pressure Systolic 130 mmHg Results No Known Results Immunizations Vaccine Administration Date FLUARIX QUAD P-FREE 3 AND UP .50 2015Apr 20, 2016 Summary Purpose eClinicalWorks Submission
--- OUTSIDE RECORDS SUMMARY | 2016-10-25 04:06 | XMS REPORT ---
Author Author AGUSTÍN SORENSON Organization [facility] Address [address] [place] [address] Care Team Providers Care Business And Financial Counsel Name Role Phone AGUSTÍN SORENSON Unavailable PROBLEMS Type Condition ICD9-CM Code [id number] Code Onset Dates Condition Status SNOMED Code Problem Chronic fatigue R53.82 Active 47877085 Problem Encounter for immunization Z23 Active 734180820 Problem Type 2 diabetes mellitus with hyperosmolarity without coma, without long-term current use of insulin E11.00 Active 64418475 Problem Edema, unspecified type R60.9 Active 980315172 Problem Migraine without status migrainosus, not intractable, unspecified migraine type G43.909 Active 56535756 Problem Stress incontinence (female) (male) N39.3 Active 20816970 Problem Hypercholesterolemia E78.00 Active 48962211 Problem Anxiety about health F41.8 Active 078131536 Problem Bipolar 1 disorder F31.9 Active 516833718 Problem Other chronic pain G89.29 Active 05871298 Problem Lumbago with sciatica, unspecified side M54.40 Active 118615877 Assessment Headache above the eye region R51 Mar, Active 40015562 Problem Morbid obesity due to excess calories E66.01 Active 506211291 Problem Chronic obstructive pulmonary disease, unspecified COPD type J44.9 Active 43784655 Problem Gastroesophageal reflux disease with esophagitis K21.0 Active 533393535 ALLERGIES Substance Reaction Event Type Date Status Penicillin V Potassium Unknown Drug Allergy Mar, Active Iodine Unknown Drug Allergy Mar, Active SOCIAL HISTORY No smoking Hx information available PLAN OF CARE VITAL SIGNS Height 68 in 2016-04-14 Weight 273.4 lbs 2016-04-14 Heart Rate 80 bpm 2016-04-14 Respiratory Rate 20 2016-04-14 BMI 41.57 kg/m2 2016-04-14 Blood pressure systolic 132 mmHg 2016-04-14 Blood pressure diastolic 76 mmHg 2016-04-14 MEDICATIONS Medication Instructions Dosage Frequency Start Date End Date Duration Status Atorvastatin Calcium 10 mg Orally Once a day 1 tablet 24h Feb, 30 day(s) Active Gabapentin 300 MG Orally Three times a day 1 capsule 8h Active Abilify 10 MG Orally Once a day 1 tablet 24h Active Naproxen 500 MG Orally 2 times a day 1 tablet 12h Active Proventil HFA 108 (90 Base) MCG/ACT Inhalation every 4 hrs 2 puffs as needed 4h Mar, Active Sumatriptan Succinate 100 MG Orally Twice a day 1 tablet as needed 12h Active Omeprazole 20 mg take 1 capsule (20 mg) by oral route once daily before a meal Feb, Active Topamax 50 MG Orally Twice a day 3 tablets 12h Active metformin 500 mg take 1 tablet by Oral route 2 times per day with morning and evening meals Jun, Active Propranolol HCl 20 mg Orally Twice a day 1 tablet 12h Mar, 30 day(s) Active Hydrochlorothiazide 50 mg Orally Once a day 1 tablet 24h Mar, 30 day(s) Active Tizanidine HCl 2 MG Orally every 8 hrs 1 tablet as needed 8h Active Meclizine HCl 25 MG Orally 3 times daily prn nausea 1 tablet as needed Mar, 30 day(s) Active RESULTS No Results PROCEDURES Procedure Date Ordered Related Diagnosis Body Site [facility] VISIT ESTABLISHED PATIENT Apr 14, 2016 Office Visit, Est Pt., Level 4 Apr 14, 2016 IMMUNIZATIONS No Known Immunizations
--- OUTSIDE RECORDS SUMMARY | 2016-10-25 04:06 | XMS REPORT | Continuity of Care Document ---
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 blood count (CBC) with automated white blood cell (WBC) differential - 08/02/16 13:32 Blood leukocytes automated count (number/volume) 13.5 10*3/ uL 4.3-11.0 Blood erythrocytes automated count (number/volume) 5.08 10*6 /uL 4.35-5.85 Venous blood hemoglobin measurement (mass/volume) 15.0 g/dL 11.5-16.0 Blood hematocrit (volume fraction) 43 % 35-52 Automated erythrocyte mean corpuscular volume 85 [foz_us] 80-99 Automated erythrocyte mean corpuscular hemoglobin (mass per erythrocyte) 30 pg 25-34 Automated erythrocyte mean corpuscular hemoglobin concentration measurement ( mass/volume) 35 g/dL 32-36 Automated erythrocyte distribution width ratio 13.2 % 10.0-14.5 Automated blood platelet count (count/volume) 326 10*3/uL 130-400 Automated blood platelet mean volume measurement 10.7 [foz_ us] 7.4-10.4 Automated blood neutrophils/100 leukocytes 63 % 42-75 Automated blood lymphocytes/100 leukocytes 28 % 12-44 Blood monocytes/100 leukocytes 8 % 0-12 Automated blood eosinophils/100 leukocytes 2 % 0-10 Automated blood basophils/100 leukocytes 1 % 0-10 Blood neutrophils automated count (number/volume) 8.5 10*3 1.8-7.8 Blood lymphocytes automated count (number/volume) 3.7 10*3 1.0-4.0 Blood monocytes automated count (number/volume) 1.0 10*3 0.0-1.0 Automated eosinophil count 0.2 10*3/uL 0.0-0.3 Automated blood basophil count (count/volume) 0.1 10*3/uL 0.0-0.1 Comprehensive metabolic panel - 08/02/16 13:32 Serum or plasma sodium measurement (moles/volume) 138 mmol/ L 135-145 Serum or plasma potassium measurement (moles/volume) 3.9 mmol/L 3.6-5.0 Serum or plasma chloride measurement (moles/volume) 111 mmol /L 98-107 Carbon dioxide 16 mmol/L 21-32 Serum or plasma anion gap determination (moles/volume) 11 mmol/L 5-14 Serum or plasma urea nitrogen measurement (mass/volume) 13 mg/dL 7-18 Serum or plasma creatinine measurement (mass/volume) 0.84 mg /dL 0.60-1.30 Serum or plasma urea nitrogen/creatinine mass ratio 15 NRG Serum or plasma creatinine measurement with calculation of estimated glomerular filtration rate > NRG Serum or plasma glucose measurement (mass/volume) 105 mg/dL 70-105 Serum or plasma calcium measurement (mass/volume) 8.8 mg/dL 8.5-10.1 Serum or plasma total bilirubin measurement (mass/volume) 0.2 mg/dL 0.1-1.0 Serum or plasma alkaline phosphatase measurement (enzymatic activity/volume) 101 U/L 40-136 Serum or plasma aspartate aminotransferase measurement (enzymatic activity/ volume) 12 U/L 5-34 Serum or plasma alanine aminotransferase measurement (enzymatic activity/volume ) 30 U/L 0-55 Serum or plasma protein measurement (mass/volume) 6.9 g/dL 6.4-8.2 Serum or plasma albumin measurement (mass/volume) 4.0 g/dL 3.2-4.5 Complete urinalysis with reflex to culture - 08/02/16 14:33 Urine color determination YELLOW NRG Urine clarity determination SLIGHTLY CLOUDY NRG Urine pH measurement by test strip 7 5- 9 Specific gravity of urine by test strip 1.015 1.016-1.022 Urine protein assay by test strip, semi-quantitative 1+ NEGATIVE Urine glucose detection by automated test strip NEGATIVE NEGATIVE Erythrocytes detection in urine sediment by light microscopy 1+ NEGATIVE Urine ketones detection by automated test strip NEGATIVE NEGATIVE Urine nitrite detection by test strip NEGATIVE NEGATIVE Urine total bilirubin detection by test strip NEGATIVE NEGATIVE Urine urobilinogen measurement by automated test strip (mass/volume) NORMAL NORMAL Urine leukocyte esterase detection by dipstick 1+ NEGATIVE Automated urine sediment erythrocyte count by microscopy (number/high power field) [HPF] NRG Automated urine sediment leukocyte count by microscopy (number/high power field ) [HPF] NRG Bacteria detection in urine sediment by light microscopy FEW NRG Crystals detection in urine sediment by light microscopy PRESENT NRG Casts detection in urine sediment by light microscopy NONE NRG Mucus detection in urine sediment by light microscopy SMALL NRG Complete urinalysis with reflex to culture NO NRG Calcium oxalate crystals detection in urine sediment by light microscopy MODERATE NRG Complete blood count (CBC) with automated white blood cell (WBC) differential - 08/29/16 09:50 Blood leukocytes automated count (number/volume) 19.8 10*3/ uL 4.3-11.0 Blood erythrocytes automated count (number/volume) 4.80 10*6 /uL 4.35-5.85 Venous blood hemoglobin measurement (mass/volume) 14.0 g/dL 11.5-16.0 Blood hematocrit (volume fraction) 41 % 35-52 Automated erythrocyte mean corpuscular volume 86 [foz_us] 80-99 Automated erythrocyte mean corpuscular hemoglobin (mass per erythrocyte) 29 pg 25-34 Automated erythrocyte mean corpuscular hemoglobin concentration measurement ( mass/volume) 34 g/dL 32-36 Automated erythrocyte distribution width ratio 13.1 % 10.0-14.5 Automated blood platelet count (count/volume) 289 10*3/uL 130-400 Automated blood platelet mean volume measurement 12.0 [foz_ us] 7.4-10.4 Automated blood neutrophils/100 leukocytes 78 % 42-75 Automated blood lymphocytes/100 leukocytes 15 % 12-44 Blood monocytes/100 leukocytes 5 % 0-12 Automated blood eosinophils/100 leukocytes 1 % 0-10 Automated blood basophils/100 leukocytes 0 % 0-10 Blood neutrophils automated count (number/volume) 15.5 10*3 1.8-7.8 Blood lymphocytes automated count (number/volume) 3.0 10*3 1.0-4.0 Blood monocytes automated count (number/volume) 1.1 10*3 0.0-1.0 Automated eosinophil count 0.2 10*3/uL 0.0-0.3 Automated blood basophil count (count/volume) 0.1 10*3/uL 0.0-0.1 Comprehensive metabolic panel - 08/29/16 09:50 Serum or plasma sodium measurement (moles/volume) 134 mmol/ L 135-145 Serum or plasma potassium measurement (moles/volume) 4.1 mmol/L 3.6-5.0 Serum or plasma chloride measurement (moles/volume) 107 mmol /L 98-107 Carbon dioxide 15 mmol/L 21-32 Serum or plasma anion gap determination (moles/volume) 12 mmol/L 5-14 Serum or plasma urea nitrogen measurement (mass/volume) 18 mg/dL 7-18 Serum or plasma creatinine measurement (mass/volume) 0.84 mg /dL 0.60-1.30 Serum or plasma urea nitrogen/creatinine mass ratio 21 NRG Serum or plasma creatinine measurement with calculation of estimated glomerular filtration rate > NRG Serum or plasma glucose measurement (mass/volume) 170 mg/dL 70-105 Serum or plasma calcium measurement (mass/volume) 8.5 mg/dL 8.5-10.1 Serum or plasma total bilirubin measurement (mass/volume) 0.2 mg/dL 0.1-1.0 Serum or plasma alkaline phosphatase measurement (enzymatic activity/volume) 99 U/L 40-136 Serum or plasma aspartate aminotransferase measurement (enzymatic activity/ volume) 17 U/L 5-34 Serum or plasma alanine aminotransferase measurement (enzymatic activity/volume ) 22 U/L 0-55 Serum or plasma protein measurement (mass/volume) 6.4 g/dL 6.4-8.2 Serum or plasma albumin measurement (mass/volume) 3.5 g/dL 3.2-4.5 Blood manual differential performed detection - 08/29/16 09:50 Blood monocytes/100 leukocytes 6 % NRG Manual blood segmented neutrophils/100 leukocytes 63 % NRG Blood band neutrophils/100 leukocytes 3 % NRG Manual blood lymphocytes/100 leukocytes 25 % NRG Manual eosinophils/100 leukocytes in nose 2 % NRG Manual blood basophils/100 leukocytes 1 % NRG Blood erythrocyte morphology finding identification NORMAL NRG PT panel in platelet poor plasma by coagulation assay - 09/02/16 11:45 Prothrombin time (PT) in platelet poor plasma by coagulation assay 12.8 s 12.2-14.7 INR in platelet poor plasma or blood by coagulation assay 1.0 0.8-1.4 Complete urinalysis with reflex to culture - 09/02/16 11:45 Urine color determination YELLOW NRG Urine clarity determination CLEAR NRG Urine pH measurement by test strip 6 5- 9 Specific gravity of urine by test strip 1.015 1.016-1.022 Urine protein assay by test strip, semi-quantitative 1+ NEGATIVE Urine glucose detection by automated test strip NEGATIVE NEGATIVE Erythrocytes detection in urine sediment by light microscopy 4+ NEGATIVE Urine ketones detection by automated test strip NEGATIVE NEGATIVE Urine nitrite detection by test strip NEGATIVE NEGATIVE Urine total bilirubin detection by test strip NEGATIVE NEGATIVE Urine urobilinogen measurement by automated test strip (mass/volume) NORMAL NORMAL Urine leukocyte esterase detection by dipstick 1+ NEGATIVE Automated urine sediment erythrocyte count by microscopy (number/high power field) [HPF] NRG Automated urine sediment leukocyte count by microscopy (number/high power field ) [HPF] NRG Bacteria detection in urine sediment by light microscopy TRACE NRG Squamous epithelial cells detection in urine sediment by light microscopy 2-5 NRG Crystals detection in urine sediment by light microscopy NONE NRG Casts detection in urine sediment by light microscopy NONE NRG Mucus detection in urine sediment by light microscopy NEGATIVE NRG Complete urinalysis with reflex to culture NO NRG Blood type T Indirect antibody screen panel - 09/02/16 11:45 ABO+Rh group AN NRG Transfusion band number [id number] NRG Blood group antibody screen NEGATIVE NRG Methicillin resistant Staphylococcus aureus (MRSA) screening culture - 11:45 Methicillin resistant Staphylococcus aureus (MRSA) screening culture NEG NRG Urine beta human chorionic gonadotropin (hCG) measurement - 09/02/16 12:25 Urine beta human chorionic gonadotropin (hCG) measurement NEGATIVE NEGATIVE Capillary blood glucose measurement by glucometer (mass/volume) - 09/04/16 11: 29 Capillary blood glucose measurement by glucometer (mass/volume) 101 mg/dL 70-110 Encounters ACCT No. Visit Date/Time Discharge Status Pt. Type Provider Facility Loc./Unit Complaint [id number] 07/10/2014 08:36:00 07/10/2014 23: 59:59 CLS Outpatient OBINNA HARDING MD [id number] 06/08/2014 10:19:00 06/08/2014 23: 59:59 CLS Outpatient OBINNA HARDING MD [id number] 05/09/2014 08:22:00 05/09/2014 23: 59:59 CLS Outpatient OBINNA HARDING MD [id number] 04/03/2014 09:59:00 04/03/2014 23: 59:59 CLS Outpatient OBINNA HARDING MD [id number] 02/23/2014 10:30:00 02/23/2014 23: 59:59 CLS Outpatient OBINNA HARDING MD [id number] 01/23/2014 13:26:00 01/23/2014 23: 59:59 CLS Outpatient OBINNA HARDING MD
--- OUTSIDE RECORDS SUMMARY | 2016-10-25 04:06 | XMS REPORT ---
Author Author AGUSTÍN SORENSON Organization [facility] Address [address] [place] [address] Care Team Providers Care Glass Technologist Name Role Phone AGUSTÍN SORENSON Unavailable PROBLEMS Type Condition ICD9-CM Code [id number] Code Onset Dates Condition Status SNOMED Code Problem Lumbago with sciatica, unspecified side M54.40 Active 434710390 Problem Gastroesophageal reflux disease with esophagitis K21.0 Active 584369915 Problem Morbid obesity due to excess calories E66.01 Active 390498644 Problem Chronic obstructive pulmonary disease, unspecified COPD type J44.9 Active 22256781 Problem Other chronic pain G89.29 Active 32635330 Problem Bipolar 1 disorder F31.9 Active 841376547 Problem Stress incontinence (female) (male) N39.3 Active 35448296 Problem Type 2 diabetes mellitus with hyperosmolarity without coma, without long-term current use of insulin E11.00 Active 60677938 Problem Chronic fatigue R53.82 Active 71566400 Problem Hypercholesterolemia E78.00 Active 13633889 Problem Encounter for immunization Z23 Active 052591402 ALLERGIES No Known Allergies SOCIAL HISTORY No smoking Hx information available PLAN OF CARE VITAL SIGNS MEDICATIONS No Known Medications RESULTS No Results PROCEDURES No Known procedures IMMUNIZATIONS No Known Immunizations
--- OUTSIDE RECORDS SUMMARY | 2016-10-25 04:06 | XMS REPORT ---
Author Author ART RG [facility] Address Unknown Care Team Providers Care Object Oriented Programmer Name Role Phone ART RG Unavailable PROBLEMS Type Condition ICD9-CM Code [id number] Code Onset Dates Condition Status SNOMED Code Problem Chronic obstructive pulmonary disease, unspecified COPD type J44.9 Active 30475237 Assessment Dental examination Z01.20 Feb, Active 492027555 Problem Type 2 diabetes mellitus with hyperosmolarity without coma, without long-term current use of insulin E11.00 Active 36755818 Problem Chronic fatigue R53.82 Active 10336951 Problem Lumbago with sciatica, unspecified side M54.40 Active 764932146 Problem Other chronic pain G89.29 Active 96140577 Problem Gastroesophageal reflux disease with esophagitis K21.0 Active 311179018 Problem Morbid obesity due to excess calories E66.01 Active 118648405 ALLERGIES Substance Reaction Event Type Date Status Penicillin V Potassium Unknown Drug Allergy Feb, Active Iodine Unknown Drug Allergy Feb, Active SOCIAL HISTORY No smoking Hx information available PLAN OF CARE VITAL SIGNS Height 68 in 2016-02-26 Blood pressure systolic 143 mmHg 2016-02-26 Blood pressure diastolic 85 mmHg 2016-02-26 MEDICATIONS Medication Instructions Dosage Frequency Start Date End Date Duration Status Gabapentin 300 MG Orally Three times a day 1 capsule 8h Active metformin 500 mg take 1 tablet by Oral route 2 times per day with morning and evening meals Jun, Active Naproxen 500 MG Orally 2 times a day 1 tablet 12h Active Sumatriptan Succinate 100 MG Orally Twice a day 1 tablet as needed 12h Active Topamax 50 MG Orally Twice a day 3 tablets 12h Active Tizanidine HCl 2 MG Orally every 8 hrs 1 tablet as needed 8h Active Atorvastatin Calcium 10 mg Orally Once a day 1 tablet 24h Feb, 30 day(s) Active Nuvigil 200 MG Orally Once a day 1 1/2 tablets 24h May, Active Hydrocodone-Acetaminophen Active Abilify 10 MG Orally Once a day 1 tablet 24h Active RESULTS No Results PROCEDURES Procedure Date Ordered Related Diagnosis Body Site LTD ORAL EVALUATION - PROBLEM FOCUS Feb 26, 2016 INTRAORL-PERIAPICAL 1 FILM 84368 Feb 26, 2016 EXTRAC ERUPTED TOOTH/EXPOSED ROOT Feb 26, 2016 IMMUNIZATIONS No Known Immunizations
--- OUTSIDE RECORDS SUMMARY | 2016-10-25 04:07 | XMS REPORT ---
Author Author LINDSAY YUAN Organization [employer] Address Unknown Phone Unavailable Care Team Providers Care Director Of Restaurants Name Role Phone LINDSAY YUAN CP Unavailable Allergies, Adverse Reactions, Alerts Substance Reaction Event Type Iodine Info Not Available Drug Allergy Penicillins Info Not Available Non Drug Allergy Problems Problem Type Condition Code Onset Dates Condition Status Problem Other, multiple, and unspecified sites, insect bite, nonvenomous, without mention of infection 919.4 Active Problem Female stress incontinence 625.6 Active Problem Nondependent tobacco use disorder 305.1 Active Problem Migraine, unspecified without mention of intractable migraine without mention of status migrainosus 346.90 Active Problem Primary localized osteoarthrosis, lower leg 715.16 Active Problem Lumbago 724.2 Active Problem Polycystic ovaries 256.4 Active Problem Esophageal reflux 530.81 Active Problem Obesity, unspecified 278.00 Active Problem Other sleep disturbances 780.59 Active Assessment Dental examination Z01.20 Active Problem Other chronic pain 338.29 Active Problem Need for prophylactic vaccination and inoculation, Influenza V04.81 Active Medications Medication Code System Code Instructions Start Date End Date Status Dosage Topamax [facility] [address]-42 not defined Metformin HCl [facility] [address]-23 not defined Nuvigil [facility] [address]-33 not defined Naproxen ND 0 not defined Tizanidine HCl [facility] [address]-48 not defined Aripiprazole [facility] [address]-71 not defined Sumatriptan [facility] [address]-16 not defined Procedures Procedure Coding System Code Date PANORAMIC FILM SEE ALSO CODE 47085 CPT-4 D0330 Feb 17, 2016 EXTRAC ERUPTED TOOTH/EXPOSED ROOT CPT-4 D7140 Feb 17, 2016 LTD ORAL EVALUATION - PROBLEM FOCUS CPT-4 D0140 Feb 17, 2016 Vital Signs Date/Time: Feb 17, 2016 Blood Pressure Diastolic 72 mmHg Blood Pressure Systolic 118 mmHg Height 68 in Results No Known Results Summary Purpose [employer] Submission
--- OUTSIDE RECORDS SUMMARY | 2016-10-25 04:07 | XMS REPORT ---
Author Author AGUSTÍN SORENSON [facility] [employer] Address Unknown Phone Unavailable Care Team Providers Care Sales Development Director Name Role Phone AGUSTÍN SORENSON CP Unavailable [...] Start Date End Date Status Dosage Topamax [facility] [id number] 50 mg Orally Twice a day 3 tablets Results No Known Results Summary Purpose [employer] Submission
--- OUTSIDE RECORDS SUMMARY | 2016-10-25 04:07 | XMS REPORT ---
Author Author OBINNA HARDING Organization [employer] Address Unknown Phone Unavailable Care Team Providers Care Gastroenterologist Name Role Phone OBINNA HARDING CP Unavailable Allergies No Known Allergies Problems Problem Type Condition ICD-9 Code Onset Dates Condition Status Problem Other, [...]
--- OUTSIDE RECORDS SUMMARY | 2016-10-25 04:07 | XMS REPORT ---
Author Author AGUSTÍN SORENSON Organization [facility] Address [address] [place] [address] Care Team Providers Care Sweeping Compound Blender Name Role Phone SORENSON AGUSTÍN Unavailable PROBLEMS Type Condition ICD9-CM Code [id number] Code Onset Dates Condition Status SNOMED Code Problem Hypercholesterolemia E78.00 Active 19519733 Problem Bipolar 1 disorder F31.9 Active 114305809 Problem Stress incontinence (female) (male) N39.3 Active 18930608 Problem Anxiety F41.9 Active 70956854 Problem Gastroesophageal reflux disease without esophagitis K21.9 Active 550598326 Problem Migraine without status migrainosus, not intractable, unspecified migraine type G43.909 Active 86940943 Problem Anxiety about health F41.8 Active 201825988 Problem Essential hypertension I10 Active 90204985 Problem Edema, unspecified type R60.9 Active 475061255 Problem Chronic obstructive pulmonary disease, unspecified COPD type J44.9 Active 58883190 Problem Other chronic pain G89.29 Active 24593697 Assessment Type 2 diabetes mellitus with hyperosmolarity without coma, without long-term current use of insulin E11.00 Jun, Active 402144658826255 Problem Gastroesophageal reflux disease with esophagitis K21.0 Active 857948447 Problem Chronic fatigue R53.82 Active 31495146 Problem Lumbago with sciatica, unspecified side M54.40 Active 196902032 Problem Type 2 diabetes mellitus with hyperosmolarity without coma, without long-term current use of insulin E11.00 Active 73628605 Problem Morbid obesity due to excess calories E66.01 Active 036101210 Problem Encounter for immunization Z23 Active 343317132 ALLERGIES Substance Reaction Event Type Date Status Penicillin V Potassium Unknown Drug Allergy Jun, Active Iodine Unknown Drug Allergy Jun, Active SOCIAL HISTORY No smoking Hx information available PLAN OF CARE VITAL SIGNS Height 68 in 2016-06-18 Weight 283.6 lbs 2016-06-18 Heart Rate 80 bpm 2016-06-18 Respiratory Rate 22 2016-06-18 BMI 43.12 kg/m2 2016-06-18 Blood pressure systolic 122 mmHg 2016-06-18 Blood pressure diastolic 80 mmHg 2016-06-18 MEDICATIONS Medication Instructions Dosage Frequency Start Date End Date Duration Status Gabapentin 300 MG Orally Three times a day 1 capsule 8h Active Propranolol HCl 20 mg Orally Twice a day 1 tablet 12h Mar, Active Abilify 10 MG Orally Once a day 1 tablet 24h Active Omeprazole 20 mg take 1 capsule (20 mg) by oral route once daily before a meal Feb, Active Hydrocodone-Acetaminophen 7.5-325 MG Orally 3 times a day 1 tablet as needed 8h Jun, Active Nuvigil 200 MG Orally Once a day 1 1/2 tablets 24h May, Active Metformin HCl 500 MG Orally Twice a day 1 tablet with meals 12h May, Active Tizanidine HCl 2 MG Orally every 8 hrs 1 tablet as needed 8h Active Oxybutynin Chloride 5 Orally Twice a day 1 tablet 12h Active Topamax 50 mg Orally Twice a day 3 tablets 12h Active Atorvastatin Calcium 10 mg Orally Once a day 1 tablet 24h Feb, Active Sumatriptan Succinate 100 MG Orally Twice a day 1 tablet as needed 12h Active Naproxen 500 MG Orally 2 times a day 1 tablet 12h Active Hydrochlorothiazide 50 mg Orally Once a day 1 tablet 24h Mar, Active Citalopram Hydrobromide 20 mg Orally Once a day 1 tablet 24h Jun, 30 day(s) Active RESULTS Name Result Date Reference Range A1C (IN HOUSE) 2016-06-18 A1C IN HOUSE 5.9 4.3 - 5.6 % Previous A1c 5.7 Lot [id number] Exp date 03/2018 PROCEDURES Procedure Date Ordered Related Diagnosis Body Site GLYCATED HEMOGLOBIN TEST Jun 18, 2016 [facility] VISIT ESTABLISHED PATIENT Jun 18, 2016 Office Visit, Est Pt., Level 4 Jun 18, 2016 IMMUNIZATIONS No Known Immunizations
--- OUTSIDE RECORDS SUMMARY | 2016-10-25 04:07 | XMS REPORT | Continuity of Care Document ---
Author Author [facility] Organization [facility] Address Unknown Phone Unavailable Care Team Providers Care Casing Sewer Name Role Phone MELITON GAMINO MD PP Insurance Providers Payer Name Policy Number Subscriber Name Relationship Medicaid [place] [id number] Claribel Fuentes Self / Same As Patient [employer] [id number] Claribel Fuentes Self / Same As Patient Advance Directives Directive Response Recorded Date Advance Directives N 03/29/13 6:40pm Problems No Known Problems or Medical conditions. Social History History Response Recorded Date/Time Alcohol Use Denies Use 03/29/13 6:40pm Recreational Drug Use N 03/29/13 6:40pm Allergies, Adverse Reactions, Alerts Allergen Type Severity Reaction Last Updated Penicillins Allergy Mild 03/14/09 Povidone-Iodine Allergy Mild 03/14/09 Medications Medication Dose Units Route Sig Qty Days Phenazopyridine HCl (Pyridium) 1 Each PO TID PRN 15 Naproxen (Naprosyn) 1 Each PO TID PRN 20 Levofloxacin (Levaquin 500 Mg) 1 Each PO DAILY 10 Aripiprazole (Abilify) 2 Mg PO Quetiapine Fumarate (Seroquel Xr) 150 Mg PO DAILY Lurasidone Hcl (Latuda) 80 Mg PO DAILY Lamotrigine 150 Mg PO DAILY Desvenlafaxine Succinate (Pristiq) 100 Mg PO DAILY [Nuvigil] Metformin HCl (Metformin 500 Mg) Topiramate (Topamax) 50 Mg PO QID Orphenadrine Citrate (Norflex) 100 Mg PO BID 20 Ketorolac Tromethamine (Toradol) 10 Mg PO 5XD 20 Escitalopram Oxalate (Lexapro) Ziprasidone (Geodon) Response Recorded Date/Time Status not known Unknown Results No Known Relevant Diagnostic Tests, Laboratory Data and/or Discharge Summary. Encounters Encounter Location Date/Time Departed Emergency Room [facility] 05/31 6:35pm
--- OUTSIDE RECORDS SUMMARY | 2016-10-25 04:07 | XMS REPORT ---
Author Author AGUSTÍN SORENSON [facility] [employer] Address Unknown Phone Unavailable Care Team Providers Care Golf Course Assistant Name Role Phone AGUSTÍN SORENSON Unavailable Allergies [...]
== END 2016-10-09 19:59 | disposition home or self-care (01) ==
LOC: EDUNIT# 19:10 → ER 19:12
DX: M23.92 Unspecified internal derangement of left knee (principal); E11.9 Type 2 diabetes mellitus without complications; Z79.84 Long term (current) use of oral hypoglycemic drugs; Z79.899 Other long term (current) drug therapy
CPT/HCPCS: 73562; 99283

== ENCOUNTER 2016-12-26 12:08 | Emergency (ER) | payer MEDICARE, MEDICAID ==
[~2016-12-26] VITALS: Ht 167.6 cm; Wt 127.0 kg
[2016-12-26] MEDS ORDERED: SUMA100T3 (12:29)
[2016-12-26] MEDS ORDERED: TOPI50TA13 (12:29)
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
[2016-12-26] MEDS ORDERED: fentaNYL INJECTION 100 MCG/2 ML AMP IM ONE (12:45)
--- NOTE | 2016-12-26 13:49 | Diagnostic Imaging Report ---
INDICATION: Prior meniscal and PCL tear within the last 5 months. Corrigan pain and tear yesterday. Increasing pain Examination: Left knee dated 12/26/2016 COMPARISON: 10/09/2016 FINDINGS: 3 views of the knee. There is a lucency noted along the proximal fibula. The osseous structures stable from previous imaging consistent with old fractures but incompletely healed. The remaining osseous structures appear to be intact. There are no dislocations. Minimal soft tissue prominence perhaps due to swelling noted. No joint effusion. IMPRESSION: 1. Chronic osseous changes as described. No acute fractures. 2. Mild soft tissue prominence possibly due to swelling. Dictated by: Dictated on workstation # [id number]
[2016-12-26] MEDS ORDERED: HYDR-3812 PO (13:57)
[2016-12-26 14:07] VITALS: BP 125/90
== END 2016-12-26 14:07 | disposition home or self-care (01) ==
LOC: EDUNIT# 12:08 → ER 12:11
DX: S82.832G Other fracture of upper and lower end of left fibula, subsequent encounter for closed fracture with delayed healing (principal); E11.9 Type 2 diabetes mellitus without complications; M19.90 Unspecified osteoarthritis, unspecified site; Z79.84 Long term (current) use of oral hypoglycemic drugs; W19.XXXD Unspecified fall, subsequent encounter
CPT/HCPCS: 73562; 99283

== ENCOUNTER 2017-02-26 13:00 | Emergency (ER) | payer MEDICARE, MEDICAID ==
[~2017-02-26] VITALS: Ht 167.6 cm; Wt 127.0 kg
[~2017-02-26 13:00] MED LIST changes: +SUMA100T3; +TOPI50TA13
[2017-02-26] MEDS ORDERED: ASPIRIN 81 MG CHEW (CHILDREN'S ASA) PO ONE (13:15)
[2017-02-26] MEDS ORDERED: ALPR0.254 PO (13:26)
[2017-02-26] MEDS ORDERED: ARIP10TA17 PO (13:26)
[2017-02-26] MEDS ORDERED: MELO15TA39 PO (13:26)
[2017-02-26] MEDS ORDERED: OMEP20CA12 PO (13:26)
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
[2017-02-26 14:05] LABS: BASOPHILS # (AUTO) 0.1 10^3/uL (0.0-0.1); BASOPHILS % (AUTO) 1 % (0-10); EOSINOPHILS # (AUTO) 0.2 10^3/uL (0.0-0.3); EOSINOPHILS % (AUTO) 1 % (0-10); LYMPHOCYTES # (AUTO) 3.9 X 10^3 (1.0-4.0); LYMPHOCYTES % (AUTO) 23 % (12-44); MEAN CORPUSCULAR HEMOGLOBIN 27 PG (25-34); MEAN CORPUSCULAR HGB CONC 34 G/DL (32-36); MEAN CORPUSCULAR VOLUME 80 FL (80-99); MEAN PLATELET VOLUME 10.9 FL (7.4-10.4); MONOCYTES % (AUTO) 6 % (0-12); NEUTROPHILS % (AUTO) 70 % (42-75); PLATELET COUNT 355 10^3/uL (130-400); RED BLOOD COUNT 5.26 10^6/uL (4.35-5.85); RED CELL DISTRIBUTION WIDTH 14.3 % (10.0-14.5); WHITE BLOOD COUNT 17.1 10^3/uL (4.3-11.0)
[2017-02-26 14:18] LABS: INR 0.9 (0.8-1.4); PROTHROMBIN TIME PATIENT 11.5 SEC (12.2-14.7)
[2017-02-26 14:25] LABS: AMYLASE 34 U/L (25-125); LIPASE 5 U/L (8-78)
[2017-02-26 14:27] LABS: ALANINE AMINOTRANSFERASE 22 U/L (0-55); ALBUMIN 3.7 GM/DL (3.2-4.5); ANION GAP 9 MMOL/L (5-14); ASPARTATE AMINO TRANSFERASE 14 U/L (5-34); BILIRUBIN,TOTAL 0.2 MG/DL (0.1-1.0); BLOOD UREA NITROGEN 18 MG/DL (7-18); BUN/CREATININE RATIO 22; CALCIUM 9.1 MG/DL (8.5-10.1); CARBON DIOXIDE 16 MMOL/L (21-32); CHLORIDE 112 MMOL/L (98-107); CREATININE SERUM 0.81 MG/DL (0.60-1.30); GFR ESTIMATED > 60; GLUCOSE 107 MG/DL (70-105); SODIUM 137 MMOL/L (135-145); TOTAL PROTEIN 7.2 GM/DL (6.4-8.2)
--- NOTE | 2017-02-26 14:33 | Diagnostic Imaging Report ---
CHEST 1 VIEW, AP/PA ONLY Indication: Chest pain. Comparison: 09/02/16 Findings: No focal airspace disease in the visualized lungs. Please note that the posterior lower lobes are poorly evaluated by portable radiography. No pleural effusion or pneumothorax. Normal cardiomediastinal silhouette. Impression: No acute cardiopulmonary process by portable radiography. Dictated by: Dictated on workstation # [id number]
[2017-02-26 14:36] LABS: MYOGLOBIN SERUM 39.6 NG/ML (10.0-92.0)
[2017-02-26 14:37] LABS: BASOPHILS % (MANUAL) 1 %; EOSINOPHILS % (MANUAL) 4 %; LYMPHOCYTES % (MANUAL) 22 %; NEUTROPHILS % (MANUAL) 69 %
[2017-02-26 15:35] LABS: BILIRUBIN,URINE NEGATIVE (NEGATIVE); KETONES,URINE NEGATIVE (NEGATIVE); LEUKOCYTE ESTERASE ,URINE 3+ (NEGATIVE); NITRITE,URINE POSITIVE (NEGATIVE); PH,URINE 6 (5-9); PROTEIN,URINE 1+ (NEGATIVE); UROBILINOGEN,URINE NORMAL (NORMAL)
[2017-02-26 15:44] LABS: SQUAMOUS EPITHELIAL CELL,UR 25-50 /HPF; WBC,URINE 50-100 /HPF
[2017-02-26] MEDS ORDERED: CEPH500T PO (16:12)
[2017-02-26 16:19] VITALS: BP 128/74
== END 2017-02-26 16:19 | disposition home or self-care (01) ==
LOC: EDUNIT# 13:00 → ER 13:02
DX: R07.89 Other chest pain (principal); N39.0 Urinary tract infection, site not specified; E78.00 Pure hypercholesterolemia, unspecified; I10 Essential (primary) hypertension; G43.909 Migraine, unspecified, not intractable, without status migrainosus; M19.90 Unspecified osteoarthritis, unspecified site; F41.9 Anxiety disorder, unspecified; G47.30 Sleep apnea, unspecified; E11.9 Type 2 diabetes mellitus without complications; F17.210 Nicotine dependence, cigarettes, uncomplicated; Z82.49 Family history of ischemic heart disease and other diseases of the circulatory system; Z90.6 Acquired absence of other parts of urinary tract; Z79.84 Long term (current) use of oral hypoglycemic drugs; Z87.442 Personal history of urinary calculi; Z98.51 Tubal ligation status
CPT/HCPCS: 36415; 71010; 80053; 81000; 82150; 83690; 83735; 83874; 84484; 85007; 85027; 85379; 85610; 85730; 87088; 87186; 93041

== ENCOUNTER → 2017-03-30 | Outpatient (CLI) | payer MEDICARE, MEDICAID ==
[~2017-03-30] VITALS: Ht 167.6 cm; Wt 131.1 kg
[~2017-03-30] MED LIST changes: +ALPR0.254 PO; +ARIP10TA17 PO; +CATHETER FLUSH 10 ML SYR IV PRN; +CEPH500T PO; +MELO15TA39 PO; +OMEP20CA12 PO; +REGADENOSON 0.4 MG/5 ML SYR (LEXISCAN) IV ONE
== END ==
LOC: CARD 10:49
PROVIDERS: ATTEND Family Medicine
DX: R07.2 Precordial pain (principal)

== ENCOUNTER → 2017-04-01 | Outpatient (CLI) | payer MEDICARE, MEDICAID ==
[~2017-04-01] MED LIST changes: -CATHETER FLUSH 10 ML SYR IV PRN; -REGADENOSON 0.4 MG/5 ML SYR (LEXISCAN) IV ONE
--- NOTE | 2017-04-01 21:59 | Diagnostic Imaging Report ---
EXAMINATION: Ultrasound of the chest. INDICATION: Lumps appear in the right chest inferior to the clavicle. FINDINGS: There area of the lump appears to correspond with a 1.1 x 1.0 x 0.6 cm hyperechoic lesion deep to the skin within the subcutaneous fat. It has mild shadowing. No definite internal vascularity within it. Mild color Doppler is seen along its deep margin however. Etiology is uncertain. IMPRESSION: 1.1 cm hyperechoic mass is seen deep to the skin within the subcutaneous tissues of the palpable area. Etiology is indeterminate. Correlate clinically and with CT or MRI evaluation, if needed. Dictated on workstation # [id number]
== END ==
LOC: RAD 14:37
PROVIDERS: ATTEND Family Medicine
DX: R22.2 Localized swelling, mass and lump, trunk (principal)
CPT/HCPCS: 76604

== ENCOUNTER → 2017-04-14 | Outpatient (CLI) | payer MEDICARE, MEDICAID ==
[~2017-04-14] MED LIST changes: -NAPR500T3 PO; +NAPR500T4 PO
--- NOTE | 2017-04-14 12:42 | Diagnostic Imaging Report ---
PROCEDURE: CT chest without contrast. TECHNIQUE: Multiple contiguous axial images were obtained through the chest without the use of intravenous contrast. INDICATION: Right upper chest lump. FINDINGS: No significant abnormality is seen in the anterior chest wall on the right side that corresponds with the nodule noticed on ultrasound of 04/01/2017. This could be related to fatty tissue inseparable from the subcutaneous fat or transient abnormality that have resolved. There is no fluid collection or soft tissue mass identified. The lungs demonstrate no significant consolidation, mass or suspicious nodule. The heart size is normal. No pericardial or pleural effusion. The thoracic aorta is normal in caliber. No mediastinal lymphadenopathy. No hilar mass is seen abutting the unopacified hilar vessels on this exam. No axillary lymphadenopathy. The right thyroid lobe is prominent and slightly heterogenous. This could relate to multinodular goiter. The osseous structures appear grossly unremarkable. The sections in the upper abdomen appear unremarkable. There is beam hardening artifact from internal fixation hardware in the right humerus. IMPRESSION: 1. There is no mass seen to correspond with the anterior right chest lump. 2. Enlargement and heterogeneity in the right thyroid lobe may relate to multinodular goiter. Correlate clinically and with thyroid ultrasound if needed. Dictated by: Dictated on workstation # [id number]
== END ==
LOC: RAD 10:52
PROVIDERS: ATTEND Family Medicine
DX: E01.0 Iodine-deficiency related diffuse (endemic) goiter (principal)
CPT/HCPCS: 71250

== ENCOUNTER → 2017-04-21 | Outpatient (CLI) | payer MEDICARE, MEDICAID ==
[~2017-04-21] MED LIST changes: +NAPR500T3 PO; -NAPR500T4 PO
--- NOTE | 2017-04-21 13:33 | Diagnostic Imaging Report ---
PROCEDURE: US Thyroid. TECHNIQUE: Multiple real-time grayscale images were obtained of the thyroid in various projections. INDICATION: Abnormal appearance of the thyroid gland noted on thoracic CT performed 04/14/2017. FINDINGS: There is asymmetric enlargement of the right lobe of the thyroid gland, similar to the CT report. Right lobe measures 6.4 x 3.4 x 2.5 cm and contains several hypoechoic nodules with the largest in the mid portion reaching 2.7 x 2.4 x 2.0 cm. There are approximately 1 cm nodules noted in the lower poles of both lobes of the thyroid gland. IMPRESSION: Asymmetric enlargement of the right lobe of the thyroid gland which measures 6.4 x 3.4 x 2.5 cm compared with left lobe measurements of 5.6 x 1.9 x 1.7 cm. In addition, there are multiple hypoechoic nodules in the thyroid gland with greater predominance on the right. Overall findings are most suggestive of multinodular goiter; however, if there is palpable change or other clinical concern, short-term ultrasound followup or possible biopsy of the dominant nodule could be considered. Dictated by: Dictated on workstation # [id number]
== END ==
LOC: RAD 11:51
PROVIDERS: ATTEND Family Medicine
DX: E04.2 Nontoxic multinodular goiter (principal)
CPT/HCPCS: 76536

== ENCOUNTER → 2017-05-20 | Outpatient (CLI) | payer MEDICARE, MEDICAID ==
[~2017-05-20] VITALS: Ht 167.6 cm; Wt 131.1 kg
[~2017-05-20] MED LIST changes: +LIDOCAINE 1% INJ 20 ML (XYLOCAINE) VIAL INJ ONE
[2017-05-20 12:50] VITALS: BP 134/84
[2017-05-20 13:20] VITALS: BP 129/81
--- NOTE | 2017-05-20 14:01 | Diagnostic Imaging Report ---
EXAMINATION: US-guided core biopsy-thyroid. INDICATION: Right thyroid nodule. Current history and physical and other medical records are reviewed prior to the procedure. CONSENT: Informed consent was obtained from the patient. The risks, benefits, potential complications and alternatives were reviewed and all questions answered to the patient's satisfaction. The patient's vital signs, cardiac rhythm, and pulse oximetry with observed throughout the procedure by qualified nursing personnel. Sedation/medications: none. FINDINGS: Multiple thyroid nodules are seen with a dominant lesion in the mid right thyroid lobe. PROCEDURE: After maximal sterile barrier technique preparation and draping, 1% lidocaine was utilized for local anesthesia. With the patient in supine position, and via anterior approach, a 19-gauge guide needle is introduced into the right thyroid lobe nodule under live ultrasound guidance. After confirming adequate positioning with saved ultrasound images, multiple 20 gauge core biopsy specimens were obtained. The patient tolerated the procedure well with no immediate complications. IMPRESSION: Successful US-guided core biopsy of right thyroid lobe nodule. Dictated by: Dictated on workstation # [id number]
== END ==
LOC: RAD 11:54
PROVIDERS: ATTEND Family Medicine
DX: E04.2 Nontoxic multinodular goiter (principal)
CPT/HCPCS: 76942

== ENCOUNTER 2017-09-18 19:56 | Outpatient (CLI) | payer MEDICARE, MEDICAID ==
[~2017-09-18 19:56] MED LIST changes: +ACHD5005 PO; -HYDR-3812 PO; -LIDOCAINE 1% INJ 20 ML (XYLOCAINE) VIAL INJ ONE; +NAPR-915 PO; -NAPR500T3 PO
== END 2017-09-19 06:03 | disposition home or self-care (01) ==
LOC: SLEEP 19:56
PROVIDERS: ATTEND Nurse Practitioner Family
DX: G47.33 Obstructive sleep apnea (adult) (pediatric) (principal)
CPT/HCPCS: 95811

== ENCOUNTER 2017-11-23 18:44 | Emergency (ER) | payer MEDICARE, MEDICAID ==
[~2017-11-23] VITALS: Ht 167.6 cm; Wt 117.9 kg
[~2017-11-23 18:44] MED LIST changes: -CITA20TA7 PO; +CITA20TA9 PO; -METF500T4 PO; +METF500T5 PO; -SUMA100T3
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
--- OUTSIDE RECORDS SUMMARY | 2017-11-23 18:50 | XMS REPORT ---
Author Author OBINNA HARDING [facility] Address [address] [place] [address] Care Team Providers Care Picture Copyist Name Role Phone OBINNA HARDING Unavailable PROBLEMS Type Condition ICD9-CM Code YLO05-CN Code Onset Dates Condition Status SNOMED Code Problem Essential hypertension I10 Active 47598854 Problem Recurrent major depressive disorder, in full remission F33.42 Active 910996355 Problem Anxiety F41.9 Active 50199542 Problem Chronic migraine without aura without status migrainosus, not intractable G43.709 Active 192484034 Problem CPAP (continuous positive airway pressure) dependence Z99.89 Active 841866381 Problem Mixed incontinence urge and stress N39.46 Active 271782708 Problem 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 Active 9555889845861199 Problem 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.29 Active 831901084 Problem Proteinuria, unspecified R80.9 Active 89256357 Problem Multinodular goiter E04.2 Active 812700555 Problem Type 2 diabetes mellitus with hyperglycemia, without long-term current use of insulin E11.65 Active 66236055 Problem Chronic obstructive pulmonary disease, unspecified COPD type J44.9 Active 79343484 Problem Morbid obesity due to excess calories E66.01 Active 177425817 Problem Primary osteoarthritis of left knee M17.12 Active 982799307752381 Problem Obstructive sleep apnea syndrome G47.33 Active 12642302 Problem Lumbago with sciatica, unspecified side M54.40 Active 276437394 Problem Other chronic pain G89.29 Active 23906537 Problem Chronic fatigue R53.82 Active 89129914 Problem Hypercholesterolemia E78.00 Active 00531493 Problem Gastroesophageal reflux disease with esophagitis K21.0 Active 956534266 Problem Bipolar 1 disorder F31.9 Active 565777703 ALLERGIES Substance Reaction Event Type Date Status Penicillin V Potassium Unknown Drug Allergy Mar, Active Iodine Unknown Drug Allergy Mar, Active ENCOUNTERS Encounter Location Date Diagnosis [place] [id number] [address] Jan, [place] [id number] [place] [address] 04268- 7296 Oct, [place] [id number] [place] [address] 66961- 9944 Oct, Recurrent major depressive disorder, in full remission F33.42 and Anxiety F41.9 [facility] [facility] [id number] [place] [address] 32863- 8454 Sep, Other chronic pain G89.29 [facility] [id number] [place] [address] 85374- 6849 2017 Other chronic pain G89.29 [facility] [facility] [id number] [place] [address] 60692- 6169 09 Aug, 2017 Chronic obstructive pulmonary disease, unspecified COPD type J44.9 ; Other chronic pain G89.29 ; Gastroesophageal reflux disease with esophagitis K21.0 ; Lumbago with sciatica, unspecified side M54.40 ; Bipolar 1 disorder F31.9 ; Essential hypertension I10 ; Type 2 diabetes mellitus with hyperglycemia, without long-term current use of insulin E11.65 ; CPAP ( continuous positive airway pressure) dependence Z99.89 ; Obstructive sleep apnea syndrome G47.33 ; Chronic migraine without aura without status migrainosus , not intractable G43.709 ; Hypercholesterolemia E78.00 ; Mixed incontinence urge and stress N39.46 ; Multinodular goiter E04.2 and BMI 40.0-44.9, adult Z68.41 [place] [address], [place] [address] Aug, [place] [id number] [place] [address] 87332- 1451 Jul, Type 2 diabetes mellitus with hyperglycemia, without long- term current use of insulin E11.65 [facility] [id number] [place] [address] 94919- 9649 Jul, Type 2 diabetes mellitus with hyperglycemia, without long- term current use of insulin E11.65 [facility] [id number] [place] [address] 00083- 4434 Jul, [place] [id number] [place] [address] 70066- 0926 Jul, Type 2 diabetes mellitus with hyperglycemia, without long- term current use of insulin E11.65 ; Multinodular goiter E04.2 ; 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.29 ; Essential hypertension I10 ; Chronic obstructive pulmonary disease, unspecified COPD type J44.9 ; Gastroesophageal reflux disease with esophagitis K21.0 ; Migraine without status migrainosus, not intractable, unspecified migraine type G43.909 ; Stress incontinence (female) (male) N39.3 ; Lumbago with sciatica, unspecified side M54.40 ; Orthopnea R06.01 ; Encounter for immunization Z23 and BMI 40.0-44.9, adult Z68.41 [place] [id number] [place] [address] 97957- 2703 Jun, Migraine without status migrainosus, not intractable, unspecified migraine type G43.909 ; Hypercholesterolemia E78.00 and Lumbago with sciatica, unspecified side M54.40 [place] [id number] [place] [address] 16853- 0086 Jun, Recurrent major depressive disorder, in full remission F33.42 and Anxiety F41.9 [place] [id number] [place] [address] 67933- 4901 Jun, [place] [id number] [place] [address] 43004- 8463 May, Hypercholesterolemia E78.00 ; 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.29 ; Migraine without status migrainosus , not intractable, unspecified migraine type G43.909 and Lumbago with sciatica, unspecified side M54.40 [place] [id number] [place] [address] 58156- 6968 May, Multinodular goiter E04.2 [place] [id number] [place] [address] 59734- 4564 May, [place] [id number] [place] [address] 62718- 3660 Apr, Multinodular goiter E04.2 [place] [id number] [place] [address] 57664- 4156 Apr, Abnormal imaging of thyroid R94.6 ; Hypercholesterolemia E78.00 and 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.29 [place] [address] 96197- 1493 29 Mar, 2017 Abnormal imaging of thyroid R94.6 [facility] [address] [id number] [place] [address] 34701- 0904 Mar, Chest wall mass R22.2 [place] [address] [address]- [address]69 07 Mar, 2017 Type 2 diabetes mellitus with hyperglycemia, without long- term current use of insulin E11.65 ; Gastroesophageal reflux disease with esophagitis K21.0 ; Hypercholesterolemia E78.00 ; Proteinuria, unspecified R80.9 ; 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.29 ; Chest wall mass R22.2 and Precordial pain R07.2 [place] [address] [id number] [place] [address] 36750- 5369 Feb, Recurrent major depressive disorder, in full remission F33.42 [place] [id number] [place] [address] 91527- 0846 Feb, Recurrent major depressive disorder, in full remission F33.42 and Anxiety F41.9 [place] [address] [id number] [place] [address] 81398- 7137 Feb, [facility] [address] [place] [address] [id number] Jan, Dental examination Z01.20 and Dental caries K02.9 [facility] [address], [place] [address] 7420 Dec, [facility] [id number] [place] [address] 76735- 8110 Dec, [facility] [id number] [place] [address] 72239- 2275 Dec, Type 2 diabetes mellitus with hyperosmolarity without coma, without long-term current use of insulin E11.00 ; Gastroesophageal reflux disease with esophagitis K21.0 ; Lumbago with sciatica, unspecified side M54.40 ; Chronic obstructive pulmonary disease, unspecified COPD type J44.9 ; Essential hypertension I10 ; Hypercholesterolemia E78.00 ; Edema, unspecified type R60.9 ; Bipolar 1 disorder F31.9 ; Recurrent major depressive disorder, in full remission F33.42 ; Anxiety F41.9 ; Migraine without status migrainosus, not intractable, unspecified migraine type G43.909 and Stress incontinence ( female) (male) N39.3 [facility] [address] [place] [address] [id number] Dec, Dental caries K02.9 [facility] [id number] [place] [address] 16894- 8519 November, [facility] [id number] [place] [address] 67168- 5941 November, Essential hypertension I10 ; Other chronic pain G89.29 ; Gastroesophageal reflux disease without esophagitis K21.9 and Anxiety F41.9 [facility] [address] [place] [address] [id number] November, Dental examination Z01.20 [facility] [id number] [place] [address] 54733- 1733 Oct, Recurrent major depressive disorder, in full remission F33.42 [facility] [address] [place] [address] 49939- 5327 Sep, Other chronic pain G89.29 [facility] [address] [id number] [place] [address] 49134- 0880 Sep, Other chronic pain G89.29 and Bipolar 1 disorder F31.9 [facility] [id number] [place] [address] 24670- 8332 Aug, Other chronic pain G89.29 [facility] [id number] [place] [address] 03108- 1999 Jul, Gastroesophageal reflux disease without esophagitis K21.9 [place] [address] [id number] [place] [address] 13870- 5128 Jun, Migraine without status migrainosus, not intractable, unspecified migraine type G43.909 [facility] [address] [id number] [place] [address] 82277- 1610 Jun, Type 2 diabetes mellitus with hyperosmolarity without coma, without long-term current use of insulin E11.00 ; Anxiety F41.9 ; Chronic fatigue R53.82 ; Morbid obesity due to excess calories E66.01 ; Other chronic pain G89.29 ; Migraine without status migrainosus, not intractable, unspecified migraine type G43.909 ; Edema, unspecified type R60.9 ; Stress incontinence ( female) (male) N39.3 ; Gastroesophageal reflux disease without esophagitis K21.9 ; Essential hypertension I10 and Hypercholesterolemia E78.00 [place] [address] [place] [address] 85686- 5492 May, [place] [address] [id number] [place] [address] 95079- 5528 Apr, Edema, unspecified type R60.9 ; Type 2 diabetes mellitus with hyperosmolarity without coma, without long-term current use of insulin E11.00 ; Morbid obesity due to excess calories E66.01 ; Gastroesophageal reflux disease with esophagitis K21.0 ; Lumbago with sciatica, unspecified side M54.40 ; Chronic obstructive pulmonary disease, unspecified COPD type J44.9 ; Migraine without status migrainosus, not intractable, unspecified migraine type G43.909 ; Hypercholesterolemia E78.00 ; Bipolar 1 disorder F31.9 ; Encounter for immunization Z23 and Stress incontinence (female) (male) N39.3 [place] [address] [id number] [place] [address] 50285- 7653 Apr, [place] [address] [id number] [place] [address] 29843- 1985 Mar, Headache above the eye region R51 ; Lumbago with sciatica, unspecified side M54.40 ; Edema, unspecified type R60.9 and Migraine without status migrainosus, not intractable, unspecified migraine type G43.909 [facility] [address] [id number] [place] [address] 81330- 9018 Mar, Chronic obstructive pulmonary disease, unspecified COPD type J44.9 ; Type 2 diabetes mellitus with hyperosmolarity without coma, without long-term current use of insulin E11.00 ; Other chronic pain G89.29 ; Migraine without status migrainosus, not intractable, unspecified migraine type G43.909 ; Left-sided chest wall pain R07.89 and Anxiety about health F41.8 [facility] [address] [id number] [place] [address] 41373- 9869 Mar, [place] [address] [id number] [place] [address] 38815- 0566 Mar, [place] [address] [id number] [place] [address] 32090- 4470 Mar, [place] [address] [id number] [place] [address] 10562- 5864 Feb, [place] [address] [place] [id number] [place] [address] 65667- 0122 Feb, [place] [address] [id number] [place] [address] 93656- 9701 Feb, Chronic fatigue R53.82 ; Lumbago with sciatica, unspecified side M54.40 ; Gastroesophageal reflux disease with esophagitis K21.0 ; Other chronic pain G89.29 ; Morbid obesity due to excess calories E66.01 ; Migraine without status migrainosus, not intractable, unspecified migraine type G43.909 and Edema, unspecified type R60.9 [facility] [address] [place] [id number] [place] [address] [id number] Feb, Dental examination Z01.20 [facility] [id number] [place] [address] 84068- 7200 Feb, [facility] [address] 45254- 9331 Feb, Type 2 diabetes mellitus with hyperosmolarity without coma, without long-term current use of insulin E11.00 ; Chronic fatigue R53.82 ; Gastroesophageal reflux disease with esophagitis K21.0 ; Morbid obesity due to excess calories E66.01 ; Lumbago with sciatica, unspecified side M54.40 and Other chronic pain G89.29 [facility] [id number] [place] [address] 37627- 3877 Feb, Type 2 diabetes mellitus with hyperosmolarity without coma, without long-term current use of insulin E11.00 ; Chronic fatigue R53.82 ; Gastroesophageal reflux disease with esophagitis K21.0 ; Morbid obesity due to excess calories E66.01 ; Lumbago with sciatica, unspecified side M54.40 and Other chronic pain G89.29 [facility] [address] [place] [id number] [place] [address] [id number] Feb, Dental examination Z01.20 [facility] [id number] [place] [address] 83452- 5130 Jan, [facility] [id number] [place] [address] 20441- 2048 Mar, [facility] [address] [place] [id number] [place] [address] [id number] Feb, Dental examination V72.2 [facility] [id number] [place] [address] 21865- 2152 Oct, [facility] [address] 79612- 6579 Oct, [facility] [address] [id number] [place] [address]- 4136 Aug, [facility] [place] [facility] [address] [id number] [place] [address]- 2076 Aug, [facility] [place] [facility] [address] [id number] [place] [address]- 8179 Jul, [facility] [place] [facility] [address] [id number] [place] [address]- 7940 Jul, [facility] [place] [facility] [address] [id number] [place] [address]- 1980 Jun, [facility] [place] [facility] [address] [id number] [place] [address]- 2966 Jun, [facility] [place] [facility] [address] [id number] [place] [address]- 6131 Jun, [facility] [place] [facility] [address] [id number] [place] [address]- 1116 Jun, [facility] [place] [facility] [address] [id number] [place] [address]- 0404 Jun, [facility] [place] [facility] [address] [id number] [place] [address]- 4707 Jun, [facility] [place] [facility] [address] [id number] [place] [address]- 0290 Jun, [facility] [place] [facility] [address] [id number] [place] [address]- 3933 Jun, [facility] [place] [facility] [address] [id number] [place] [address]- 4150 Jun, [facility] [place] [facility] [address] [id number] [place] [address]- 1838 Jun, [facility] [place] [facility] [address] [id number] [place] [address]- 3651 Jun, [facility] [place] [facility] [address] [id number] [place] [address]- 2538 Jun, [facility] [place] [facility] [address] [id number] [place] [address]- 7536 Jun, [facility] [place] [facility] [address] [id number] [place] [address]- 0430 May, [facility] [place] [facility] [address] [id number] [place] [address]- 1123 May, [facility] [place] [facility] [address] [id number] [place] [address]- 1801 May, [facility] [place] [facility] [address] [id number] [place] [address]- 4415 May, [facility] [place] [facility] [address] [id number] [place] [address]- 2295 Apr, [facility] [place] [facility] [address] [id number] [place] [address]- 1647 Apr, [facility] [place] [facility] [address] [id number] [place] [address]- 5835 Apr, [facility] [place] [facility] [address] [id number] [place] [address]- 9385 Apr, [facility] [place] [facility] [address] [id number] [place] [address]- 9586 Apr, [facility] [place] [facility] [address] [id number] [place] [address]- 2054 Apr, [facility] [place] [facility] [address] [id number] [place] [address]- 0900 Apr, [facility] [place] [facility] [address] [id number] [place] [address]- 4460 Apr, [facility] [place] [facility] [address] [id number] [place] [address]- 4987 Apr, [facility] [place] [facility] [address] [id number] [place] [address]- 2023 Apr, [facility] [address] [facility] [id number] [address]- 4940 Mar, [facility] [address] [facility] [id number], [place] [address]- 7276 Mar, [facility] [id number] [address]- 4272 Feb, [facility] [address] [facility] [id number], [place] [address]- 2545 Feb, [facility] [id number] [address]- 9653 Feb, [facility] [id number], [place] [address]- 6056 Feb, [facility] [id number] [address]- 4147 Jan, [facility] [id number] [address]- 5936 Jan, IMMUNIZATIONS No Known Immunizations SOCIAL HISTORY Never Assessed REASON FOR VISIT VIA C ER / dm/htn, Went to ER for chest pains to start with. Was told it was gas. States she was diagnosed with a UTI. Treatment completed -ARI Eng PLAN OF CARE Activity Details Follow Up 3 Months Reason:DMII VITAL SIGNS Height 68 in 2017-03-25 Weight 286 lbs 2017-03-25 Temperature 98.8 degrees Fahrenheit 2017-03-25 Heart Rate 90 bpm 2017-03-25 Respiratory Rate 22 2017-03-25 BMI 43.48 kg/m2 2017-03-25 Blood pressure systolic 110 mmHg 2017-03-25 Blood pressure diastolic 80 mmHg 2017-03-25 MEDICATIONS Medication Instructions Dosage Frequency Start Date End Date Duration Status Propranolol HCl 20 MG TAKE ONE TABLET BY MOUTH TWICE DAILY 30 Active Atorvastatin Calcium 10 mg Orally Once a day 1 tablet 24h Feb, Active Oxybutynin Chloride 5 MG TAKE ONE TABLET BY MOUTH TWICE DAILY 30 Active Tizanidine HCl 2 MG Orally every 8 hrs 1 tablet as needed 8h Active Topamax 50 mg Orally Twice a day 3 tablets 12h Active Sumatriptan Succinate 100 mg Orally Once a day 1 tablet as needed 24h 30 days Active Gabapentin 300 MG Orally 3 times a day 3 capsules 8h 30 days Active Metformin HCl 500 MG Orally Twice a day 1 tablet with meals 12h May, 90 days Active Omeprazole 20 MG Orally Once a day 1 tablet 24h 08 Feb, 2014 90 days Active Glucocard Expression Test - In Vitro fasting and 2 hr after 1 meal 3 times weekly. test blood sugar November, Active Abilify 10 mg Orally Once a day 1 tablet 24h 30 days Active Glucocard Expression Monitor w/Device as directed November, Active Lisinopril 10 mg Orally Once a day 1 tablet 24h Mar, 30 day(s) Active RESULTS Name Result Date Reference Range Ultrasound : Soft Tissue (specify location) 2017-04-01 A1C (IN HOUSE) A1C IN HOUSE 6.1 4.3 - 5.6 % Previous A1c 6.2 Lot Exp date PROCEDURES Procedure Date Ordered Result Body Site GLYCATED HEMOGLOBIN TEST Mar 25, 2017 [facility] VISIT ESTABLISHED PATIENT Mar 25, 2017 INSTRUCTIONS MEDICATIONS ADMINISTERED No Known Medications MEDICAL (GENERAL) HISTORY Type Description Date Medical [...] Hospitalization History psychiatric stay s/p overdose in [place] in 2006 Hospitalization History chest pain and UTI 02/2017
--- OUTSIDE RECORDS SUMMARY | 2017-11-23 18:50 | XMS REPORT ---
Author Author AGUSTÍN SORENSON Organization [facility] Address [address] [place] [address] Care Team Providers Care Retail Leasing Agent Name Role Phone ABIMBOLA SORENSONNETTE Unavailable PROBLEMS Type Condition ICD9-CM Code GOX02-FJ Code Onset Dates Condition Status SNOMED Code Problem Migraine without status migrainosus, not intractable, unspecified migraine type G43.909 Active 39103379 Problem Essential hypertension I10 Active 73072660 Problem Edema, unspecified type R60.9 Active 854669933 Problem 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.29 Active 317535150 Problem Morbid obesity due to excess calories E66.01 Active 712398502 Problem Proteinuria, unspecified R80.9 Active 52892352 Problem Chronic obstructive pulmonary disease, unspecified COPD type J44.9 Active 98396983 Problem Gastroesophageal reflux disease without esophagitis K21.9 Active 120487183 Problem Anxiety F41.9 Active 46987270 Problem Type 2 diabetes mellitus with hyperglycemia, without long-term current use of insulin E11.65 Active 72188672 Problem Recurrent major depressive disorder, in full remission F33.42 Active 136400699 Problem Type 2 diabetes mellitus with hyperosmolarity without coma, without long-term current use of insulin E11.00 Active 32985113 Problem Gastroesophageal reflux disease with esophagitis K21.0 Active 877613799 Problem Lumbago with sciatica, unspecified side M54.40 Active 963174850 Problem Other chronic pain G89.29 Active 03553403 Problem Bipolar 1 disorder F31.9 Active 414221632 Problem Stress incontinence (female) (male) N39.3 Active 79221893 Problem Chronic fatigue R53.82 Active 86057359 Problem Encounter for immunization Z23 Active 389052068 Problem Hypercholesterolemia E78.00 Active 72288980 Problem Anxiety about health F41.8 Active 667290069 ALLERGIES No Information SOCIAL HISTORY Never Assessed PLAN OF CARE VITAL SIGNS MEDICATIONS Medication Instructions Dosage Frequency Start Date End Date Duration Status Gabapentin 300 MG Orally 3 times a day 3 capsules 8h 30 days Active RESULTS No Results PROCEDURES No Known [...] Hospitalization History psychiatric stay s/p overdose in [place] in 2006 Hospitalization History chest pain and UTI 02/2017
--- OUTSIDE RECORDS SUMMARY | 2017-11-23 18:51 | XMS REPORT ---
Author Author AGUSTÍN SORENSON Organization [facility] Address [address] [place] [address] Care Team Providers Care Twisting Press Operator Name Role Phone AGUSTÍN SORENSON Unavailable PROBLEMS Type Condition ICD9-CM Code ODB87-CN Code Onset Dates Condition Status SNOMED Code Problem Edema, unspecified type R60.9 Active 127679017 Problem Anxiety F41.9 Active 62991958 Problem Essential hypertension I10 Active 45630931 Problem Multinodular goiter E04.2 Active 893998678 Problem Gastroesophageal reflux disease with esophagitis K21.0 Active 552563109 Problem Type 2 diabetes mellitus with hyperglycemia, without long-term current use of insulin E11.65 Active 42086147 Problem Type 2 diabetes mellitus with hyperosmolarity without coma, without long-term current use of insulin E11.00 Active 12141929 Problem Chronic obstructive pulmonary disease, unspecified COPD type J44.9 Active 77253535 Problem Recurrent major depressive disorder, in full remission F33.42 Active 409422943 Problem Gastroesophageal reflux disease without esophagitis K21.9 Active 329204296 Problem 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.29 Active 338706892 Problem Proteinuria, unspecified R80.9 Active 30264209 Problem Lumbago with sciatica, unspecified side M54.40 Active 865785709 Problem Other chronic pain G89.29 Active 10240423 Problem Chronic fatigue R53.82 Active 16297944 Problem Morbid obesity due to excess calories E66.01 Active 459236535 Problem Encounter for immunization Z23 Active 471862121 Problem Bipolar 1 disorder F31.9 Active 591881724 Problem Hypercholesterolemia E78.00 Active 32204826 Problem Migraine without status migrainosus, not intractable, unspecified migraine type G43.909 Active 10521216 Problem Stress incontinence (female) (male) N39.3 Active 56356347 Problem Anxiety about health F41.8 Active 259219935 ALLERGIES No Information SOCIAL HISTORY Never Assessed PLAN OF CARE VITAL SIGNS MEDICATIONS Medication Instructions Dosage Frequency Start Date End Date Duration Status Glucocard Expression Test - In Vitro fasting and 2 hr after 1 meal 3 times weekly. test blood sugar November, Active Glucocard Expression Monitor w/Device as directed November, Active RESULTS No Results PROCEDURES No Known [...] Hospitalization History psychiatric stay s/p overdose in [place] in 2006 Hospitalization History chest pain and UTI 02/2017
--- OUTSIDE RECORDS SUMMARY | 2017-11-23 18:51 | XMS REPORT ---
Author Author AGUSTÍN Degroot [facility] Address [address] [place] [address] Care Team Providers Care Water Softener Installer Name Role Phone AGUSTÍN Degroot Unavailable PROBLEMS Type Condition ICD9-CM Code AXV59-LY Code Onset Dates Condition Status SNOMED Code Problem Essential hypertension I10 Active 32804723 Problem Recurrent major depressive disorder, in full remission F33.42 Active 053366950 Problem Anxiety F41.9 Active 35561713 Problem Chronic migraine without aura without status migrainosus, not intractable G43.709 Active 246012855 Problem Mixed incontinence urge and stress N39.46 Active 796563726 Problem 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.29 Active 207896640 Problem Proteinuria, unspecified R80.9 Active 64027097 Problem Multinodular goiter E04.2 Active 066287641 Problem Type 2 diabetes mellitus with hyperglycemia, without long-term current use of insulin E11.65 Active 80674293 Problem Chronic obstructive pulmonary disease, unspecified COPD type J44.9 Active 53093461 Problem Morbid obesity due to excess calories E66.01 Active 653230843 Problem CPAP (continuous positive airway pressure) dependence Z99.89 Active 907839370 Problem Obstructive sleep apnea syndrome G47.33 Active 05996290 Problem Lumbago with sciatica, unspecified side M54.40 Active 982238921 Problem Other chronic pain G89.29 Active 41130676 Problem Chronic fatigue R53.82 Active 85714569 Problem Hypercholesterolemia E78.00 Active 53081130 Problem Gastroesophageal reflux disease with esophagitis K21.0 Active 816745663 Problem Bipolar 1 disorder F31.9 Active 366366361 ALLERGIES No Information ENCOUNTERS Encounter Location Date Diagnosis [facility] [address] [facility] [id number] [address] Oct, [facility] [id number] [place] [address]36- 7912 Sep, [place] [id number] [place] [address] 22517- 6311 Sep, Other chronic pain G89.29 [place] [id number] [place] [address] 85115- 3186 Aug, Other chronic pain G89.29 [place] [address] [address]- 9758 Aug, Chronic obstructive pulmonary disease, unspecified COPD type [...] goiter E04.2 and BMI 40.0-44.9, adult Z68.41 [place] [id number] [place] [address] 81752- 4155 Aug, [place] [id number] [place] [address] 10534- 3098 Jul, Type 2 diabetes mellitus with hyperglycemia, without long- term current use of insulin E11.65 [place] [id number] [place] [address] 05256- 1602 Jul, Type 2 diabetes mellitus with hyperglycemia, without long- term current use of insulin E11.65 [facility] [id number] [place] [address] 02460- 9244 Jul, [place] [id number] [place] [address] 17765- 1464 Jul, Type 2 diabetes mellitus with hyperglycemia, [...] immunization Z23 and BMI 40.0-44.9, adult Z68.41 [place] [address] 32328- 8325 Jun, Migraine without status migrainosus, not intractable, unspecified migraine type G43.909 ; Hypercholesterolemia E78.00 and Lumbago with sciatica, unspecified side M54.40 [place] [address] 54281- 9693 Jun, Recurrent major depressive disorder, in full remission F33.42 and Anxiety F41.9 [place] [address] 91230- 7927 Jun, [place] [address] 15728- 9248 May, Hypercholesterolemia E78.00 ; 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.29 ; Migraine without status migrainosus , not intractable, unspecified migraine type G43.909 and Lumbago with sciatica, unspecified side M54.40 [place] [id number] [place] [address] 22179- 1573 14 May, 2017 Multinodular goiter E04.2 [place] [address] 93454- 5769 06 May, 2017 [place] [address] 25636- 3394 13 Apr, 2017 Multinodular goiter E04.2 [place] [address] [place] [address] Apr, Abnormal imaging of thyroid R94.6 ; Hypercholesterolemia E78.00 and 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.29 [facility] [place] [id number] [place] [address] 31210- 7299 29 Mar, 2017 Abnormal imaging of thyroid R94.6 [facility] [place] [id number] [place] [address] 21286- 7215 Mar, Chest wall mass R22.2 [place] [id number] [place] [address] 86467- 3925 07 Mar, 2017 Type 2 diabetes mellitus with hyperglycemia, without long- term current use of insulin E11.65 ; Gastroesophageal reflux disease with esophagitis K21.0 ; Hypercholesterolemia E78.00 ; Proteinuria, unspecified R80.9 ; 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.29 ; Chest wall mass R22.2 and Precordial pain R07.2 [place] [id number] [place] [address] 53739- 6288 Feb, Recurrent major depressive disorder, in full remission F33.42 [place] [address] 47250- 5058 Feb, Recurrent major depressive disorder, in full remission F33.42 and Anxiety F41.9 [place] [id number] [place] [address] 47613- 7391 Feb, [facility] [id number] [place] [address] [id number] Jan, Dental examination Z01.20 and Dental caries K02.9 [place] [id number] [place] [address] 05369- 2014 Dec, [place] [address] 97182- 1962 Dec, [facility] [id number] [place] [address] 03972- 8111 Dec, Type 2 diabetes mellitus with hyperosmolarity [...] and Stress incontinence ( female) (male) N39.3 [facility] [address] [id number] Dec, Dental caries K02.9 [facility] [address] 73592- 3714 November, [facility] [address] 10379- 4166 November, Essential hypertension I10 ; Other chronic pain G89.29 ; Gastroesophageal reflux disease without esophagitis K21.9 and Anxiety F41.9 [facility] [id number] [place] [address] [id number] November, Dental examination Z01.20 [facility] [id number] [place] [address] 41298- 8786 Oct, Recurrent major depressive disorder, in full remission F33.42 [facility] [id number] [place] [address] 28751- 8635 Sep, Other chronic pain G89.29 [facility] [address] 28139- 6050 Sep, Other chronic pain G89.29 and Bipolar 1 disorder F31.9 [facility] [id number] [place] [address] 92109- 1704 Aug, Other chronic pain G89.29 [facility] [address] 42764- 5690 Jul, Gastroesophageal reflux disease without esophagitis K21.9 [facility] [id number] [place] [address] 98599- 6698 Jun, Migraine without status migrainosus, not intractable, unspecified migraine type G43.909 [place] [id number] [place] [address] 67430- 6668 Jun, Type 2 diabetes mellitus with hyperosmolarity [...] ; Essential hypertension I10 and Hypercholesterolemia E78.00 [place] [address] 55090- 4458 May, [place] [address] 20668- 1012 Apr, Edema, unspecified type R60.9 ; Type [...] Z23 and Stress incontinence (female) (male) N39.3 [place] [id number] [place] [address] 25949- 8758 Apr, [place] [id number] [place] [address] 01951- 1903 Mar, Headache above the eye region R51 ; Lumbago with sciatica, unspecified side M54.40 ; Edema, unspecified type R60.9 and Migraine without status migrainosus, not intractable, unspecified migraine type G43.909 [facility] [id number] [place] [address] 37802- 5604 Mar, Chronic obstructive pulmonary disease, unspecified COPD type J44.9 ; Type 2 diabetes mellitus with hyperosmolarity without coma, without long-term current use of insulin E11.00 ; Other chronic pain G89.29 ; Migraine without status migrainosus, not intractable, unspecified migraine type G43.909 ; Left-sided chest wall pain R07.89 and Anxiety about health F41.8 [facility] [id number] [place] [address] 10652- 4967 Mar, [facility] [id number] [place] [address] 66959- 8074 Mar, [facility] [id number] [place] [address] 54386- 2793 Mar, [facility] [id number] [place] [address] 51139- 4505 Feb, [facility] [address] 30958- 1223 Feb, [facility] [id number] [place] [address] 75838- 4777 Feb, Chronic fatigue R53.82 ; Lumbago with sciatica, unspecified side M54.40 ; Gastroesophageal reflux disease with esophagitis K21.0 ; Other chronic pain G89.29 ; Morbid obesity due to excess calories E66.01 ; Migraine without status migrainosus, not intractable, unspecified migraine type G43.909 and Edema, unspecified type R60.9 [facility] [address] [place] [address] [id number] Feb, Dental examination Z01.20 [facility] [id number] [place] [address] 72560- 1046 Feb, [facility] [address] [address] 2546 Feb, Type 2 diabetes mellitus with hyperosmolarity without coma, without long-term current use of insulin E11.00 ; Chronic fatigue R53.82 ; Gastroesophageal reflux disease with esophagitis K21.0 ; Morbid obesity due to excess calories E66.01 ; Lumbago with sciatica, unspecified side M54.40 and Other chronic pain G89.29 [facility] [address] [place] [address] 17327- 6536 Feb, Type 2 diabetes mellitus with hyperosmolarity without coma, without long-term current use of insulin E11.00 ; Chronic fatigue R53.82 ; Gastroesophageal reflux disease with esophagitis K21.0 ; Morbid obesity due to excess calories E66.01 ; Lumbago with sciatica, unspecified side M54.40 and Other chronic pain G89.29 [facility] [address] [place] [address] [id number] Feb, Dental examination Z01.20 [facility] [address] [place] [address] 29155- 1076 Jan, [facility] [id number] [place] [address] 96102- 4806 Mar, [facility] [address] [place] [address] [id number] Feb, Dental examination V72.2 [facility] [id number] [place] [address] 81089- 0126 Oct, [facility] [address] [address] 2546 Oct, [facility] [id number] [place] [address] 19483- 7096 Aug, [facility] [address] [id number] [address] 2546 Aug, [facility] [address] [place] [address] 32560- 1130 Jul, [facility] [place] [facility] [address] [id number] [place] [address]- 4258 Jul, [facility] [place] [facility] [address] [id number] [place] [address]- 7788 Jun, [facility] [place] [facility] [address] [id number] [place] [address]- 7207 Jun, [facility] [place] [facility] [address] [id number] [place] [address]- 9217 Jun, [facility] [place] [facility] [address] [id number] [place] [address]- 3899 Jun, [facility] [place] [facility] [address] [id number] [place] [address]- 2900 Jun, [facility] [place] [facility] [address] [id number] [place] [address]- 0781 Jun, [facility] [place] [facility] [address] [id number] [place] [address]- 5432 Jun, [facility] [place] [facility] [address] [id number] [place] [address]- 4740 Jun, [facility] [place] [facility] [address] [id number] [place] [address]- 4567 Jun, [facility] [place] [facility] [address] [id number] [place] [address]- 0162 Jun, [facility] [place] [facility] [address] [id number] [place] [address]- 5959 Jun, [facility] [place] [facility] [address] [id number] [place] [address]- 4436 Jun, [facility] [place] [facility] [address] [id number] [place] [address]- 5814 Jun, [facility] [place] [facility] [address] [id number] [place] [address]- 1556 May, [facility] [place] [facility] [address] [id number] [place] [address]- 5891 May, [facility] [place] [facility] [address] [id number] [place] [address]- 2726 May, [facility] [place] [facility] [address] [id number] [place] [address] May, [facility] [place] [facility] [address] [id number] [place] [address]- 3271 Apr, [facility] [place] [facility] [address] [id number] [place] [address]- 6720 Apr, [facility] [place] [facility] [address] [id number] [place] [address]- 7520 Apr, [facility] [place] [facility] [address] [id number] [place] [address]- 9613 Apr, [facility] [place] [facility] [address] [id number] [place] [address]- 9737 Apr, [facility] [place] [facility] [address] [id number] [place] [address]- 9276 Apr, [facility] [place] [facility] [address] [id number] [place] [address]- 6769 Apr, [facility] [place] [facility] [address] [id number] [place] [address]- 9276 Apr, [facility] [place] [facility] [address] [id number] [place] [address]- 2856 Apr, [facility] [place] [facility] [address] [id number] [place] [address]- 1704 Apr, [facility] [place] [facility] [address] [id number] [place] [address]- 1431 Mar, [facility] [place] [facility] [address] [id number] [place] [address]- 2814 16 Mar, 2014 [facility] [place] [facility] [address] [id number] [place] [address]- 7211 Feb, [facility] [place] [facility] [address] [facility] [id number] [address]- 2546 Feb, [facility] [address] [facility] [id number], [place] [address]- 6606 Feb, [facility] [address] [facility] [id number], [place] [address]- 2546 Feb, [facility] [address] [facility] [id number], [place] [address]- 2546 Jan, [facility] [address] [facility] [id number], [place] [address]- 8846 Jan, IMMUNIZATIONS No Known Immunizations SOCIAL HISTORY Never Assessed REASON FOR VISIT Med per lab--ADaviedRN PLAN OF CARE VITAL SIGNS MEDICATIONS Medication Instructions Dosage Frequency Start Date End Date Duration Status Crestor 10 mg Orally Once a day 1 tablet 24h Dec, 30 day(s) Active RESULTS No Results PROCEDURES No Known procedures INSTRUCTIONS MEDICATIONS ADMINISTERED No Known Medications MEDICAL [...] Hospitalization History psychiatric stay s/p overdose in [place] in 2006 Hospitalization History chest pain and UTI 02/2017
--- OUTSIDE RECORDS SUMMARY | 2017-11-23 18:51 | XMS REPORT ---
Author Author OBINNA HARDING [facility] Address [address] [place] [address] Care Team Providers Care [employer]ating [employer] Name Role Phone OBINNA HARDING Unavailable PROBLEMS Type Condition ICD9-CM Code MCM56-KW Code Onset Dates Condition Status SNOMED Code Problem Essential hypertension I10 Active 74388934 Problem Recurrent major depressive disorder, in full remission F33.42 Active 690414605 Problem Anxiety F41.9 Active 57894826 Problem Chronic migraine without aura without status migrainosus, not intractable G43.709 Active 464251402 Problem CPAP (continuous positive airway pressure) dependence Z99.89 Active 173547796 Problem Mixed incontinence urge and stress N39.46 Active 887216224 Problem 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 Active 8137410139291696 Problem 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.29 Active 905605381 Problem Proteinuria, unspecified R80.9 Active 36205990 Problem Multinodular goiter E04.2 Active 539497282 Problem Type 2 diabetes mellitus with hyperglycemia, without long-term current use of insulin E11.65 Active 54337608 Problem Chronic obstructive pulmonary disease, unspecified COPD type J44.9 Active 81454531 Problem Morbid obesity due to excess calories E66.01 Active 931272247 Problem Primary osteoarthritis of left knee M17.12 Active 009610593519220 Problem Obstructive sleep apnea syndrome G47.33 Active 17640819 Problem Lumbago with sciatica, unspecified side M54.40 Active 931103454 Problem Other chronic pain G89.29 Active 09817696 Problem Chronic fatigue R53.82 Active 68128614 Problem Hypercholesterolemia E78.00 Active 21688761 Problem Gastroesophageal reflux disease with esophagitis K21.0 Active 039635741 Problem Bipolar 1 disorder F31.9 Active 291196976 ALLERGIES No Information ENCOUNTERS Encounter Location Date Diagnosis [facility] [address] [address] Jan, [place] [address] [address] Dec, [place] [address] [place] [address] 70866- 1087 Oct, Recurrent major depressive disorder, in full remission F33.42 and Anxiety F41.9 [place] [id number] [place] [address] 58147- 8146 Sep, Other chronic pain G89.29 [place] [address] [place] [address] 67416- 6901 Aug, Other chronic pain G89.29 [place] [address] [place] [id number] [place] [address] 41659- 2916 Aug, Chronic obstructive pulmonary disease, unspecified COPD [...] goiter E04.2 and BMI 40.0-44.9, adult Z68.41 [place] [address] [place] [address] 73705- 7619 Aug, [place] [id number] [place] [address] 42126- 0704 Jul, Type 2 diabetes mellitus with hyperglycemia, without long- term current use of insulin E11.65 [place] [address] [place] [address] 91344- 0700 Jul, Type 2 diabetes mellitus with hyperglycemia, without long- term current use of insulin E11.65 [place] [address] [place] [id number] [place] [address] 99307- 2135 Jul, [place] [address] [address]34- 8354 Jul, Type 2 diabetes mellitus with hyperglycemia, [...] immunization Z23 and BMI 40.0-44.9, adult Z68.[address] [address]- [address] Jun, Migraine without status migrainosus, not intractable, unspecified migraine type G43.909 ; Hypercholesterolemia E78.00 and Lumbago with sciatica, unspecified side M54.40 [place] [id number] [place] [address] 73084- 5174 Jun, Recurrent major depressive disorder, in full remission F33.42 and Anxiety F41.9 [place] [id number] [place] [address] 40679- 5352 Jun, [address] [address]- 9[address] May, Hypercholesterolemia E78.00 ; 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.29 ; Migraine without status migrainosus , not intractable, unspecified migraine type G43.909 and Lumbago with sciatica, unspecified side M54.40 [place] [address] [place] [id number] [place] [address] 80633- 5586 14 May, 2017 Multinodular goiter E04.2 [place] [address] [place] [id number] [place] [address] 12585- 3129 May, [place] [address] [address]273- 8130 Apr, Multinodular goiter E04.2 [place] [address] [place] [id number] [place] [address] 06883- 2900 06 Apr, 2017 Abnormal imaging of thyroid R94.6 ; Hypercholesterolemia E78.00 and 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.29 [place] [address] [place] [id number] [place] [address] 41478- 0703 29 Mar, 2017 Abnormal imaging of thyroid R94.6 [place] [address] 7[address]19- 9950 20 Mar, 2017 Chest wall mass R22.2 [place] [address] 69014- 2277 07 Mar, 2017 Type 2 diabetes mellitus with hyperglycemia, without long- term current use of insulin E11.65 ; Gastroesophageal reflux disease with esophagitis K21.0 ; Hypercholesterolemia E78.00 ; Proteinuria, unspecified R80.9 ; 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.29 ; Chest wall mass R22.2 and Precordial pain R07.2 [place] [address] [place] [id number] [place] [address] 24113- 3210 Feb, Recurrent major depressive disorder, in full remission F33.42 [place] [address] [place] [id number] [place] [address] 27080- 3747 Feb, Recurrent major depressive disorder, in full remission F33.42 and Anxiety F41.9 [place] [address] 37392- 3593 Feb, [facility] [address] [place] [id number] [place] [address] [id number] Jan, Dental examination Z01.20 and Dental caries K02.[address] 77820- 7576 Dec, [facility] [address] [place] [id number] [place] [address] 39078- 6198 Dec, [facility] [address] [place] [id number] [place] [address] 74331- 3476 Dec, Type 2 diabetes mellitus with hyperosmolarity [...] and Stress incontinence ( female) (male) N39.3 [facility] [address] [id number] Dec, Dental caries K02.9 [facility] [address] [place] [id number] [place] [address] 11083- 2009 November, [facility] [address] [place] [id number] [place] [address] 63525- 3593 November, Essential hypertension I10 ; Other chronic pain G89.29 ; Gastroesophageal reflux disease without esophagitis K21.9 and Anxiety F41.9 [facility] [address] [place] [address] [phone] November, Dental examination Z01.20 [facility] [address] [place] [address] 26201- 7975 Oct, Recurrent major depressive disorder, in full remission F33.42 [facility] [address] [place] [id number] [place] [address] [id number]- 3836 Sep, Other chronic pain G89.29 [facility] [address] [place] [id number] [place] [address] 32220- 1540 Sep, Other chronic pain G89.29 and Bipolar 1 disorder F31.9 [place] [address] [place] [address] 54343- 1336 Aug, Other chronic pain G89.29 [place] [address] [place] [id number] [place] [address] 91677- 8535 Jul, Gastroesophageal reflux disease without esophagitis K21.9 [place] [address] [place] [id number] [place] [address] 05334- 4399 Jun, Migraine without status migrainosus, not intractable, unspecified migraine type G43.909 [place] [address] [place] [id number] [place] [address] 10342- 3182 Jun, Type 2 diabetes mellitus with hyperosmolarity [...] ; Essential hypertension I10 and Hypercholesterolemia E78.00 [place] [address] [place] [address] 17889- 3842 May, [place] [address] [place] [id number] [place] [address] 07033- 0568 Apr, Edema, unspecified type R60.9 ; Type [...] Z23 and Stress incontinence (female) (male) N39.3 [place] [address] [place] [id number] [place] [address] 04362- 7132 Apr, [place] [address] 63730- 3047 Mar, Headache above the eye region R51 ; Lumbago with sciatica, unspecified side M54.40 ; Edema, unspecified type R60.9 and Migraine without status migrainosus, not intractable, unspecified migraine type G43.909 [place] [address] [place] [id number] [place] [address] 19534- 3074 Mar, Chronic obstructive pulmonary disease, unspecified COPD type J44.9 ; Type 2 diabetes mellitus with hyperosmolarity without coma, without long-term current use of insulin E11.00 ; Other chronic pain G89.29 ; Migraine without status migrainosus, not intractable, unspecified migraine type G43.909 ; Left-sided chest wall pain R07.89 and Anxiety about health F41.8 [place] [address] [place] [id number] [place] [address] 38891- 4236 Mar, [place] [address] [place] [id number] [place] [address] 87872- 5589 Mar, [place] [address] [place] [id number] [place] [address] 64377- 6114 Mar, [place] [address] [place] [id number] [place] [address] 31181- 1692 Feb, [place] [address] [place] [id number] [place] [address] 59351- 8229 Feb, [place] [address] [place] [id number] [place] [address] 16096- 0427 Feb, Chronic fatigue R53.82 ; Lumbago with sciatica, unspecified side M54.40 ; Gastroesophageal reflux disease with esophagitis K21.0 ; Other chronic pain G89.29 ; Morbid obesity due to excess calories E66.01 ; Migraine without status migrainosus, not intractable, unspecified migraine type G43.909 and Edema, unspecified type R60.9 [facility] [address] [place] [id number] [id number] Feb, Dental examination Z01.20 [facility] [address] [place] [id number] [place] [address] 07704- 5475 Feb, [facility] [address] [place] [id number] [place] [address] 57713- 2180 Feb, Type 2 diabetes mellitus with hyperosmolarity without coma, without long-term current use of insulin E11.00 ; Chronic fatigue R53.82 ; Gastroesophageal reflux disease with esophagitis K21.0 ; Morbid obesity due to excess calories E66.01 ; Lumbago with sciatica, unspecified side M54.40 and Other chronic pain G89.29 [facility] [address] [place] [address] 34011- 8818 Feb, Type 2 diabetes mellitus with hyperosmolarity without coma, without long-term current use of insulin E11.00 ; Chronic fatigue R53.82 ; Gastroesophageal reflux disease with esophagitis K21.0 ; Morbid obesity due to excess calories E66.01 ; Lumbago with sciatica, unspecified side M54.40 and Other chronic pain G89.29 [facility] [address] [place] [address] [phone] Feb, Dental examination Z01.20 [facility] [address] [address]- 8449 Jan, [facility] [address] [place] [id number] [place] [address] 43076- 0672 Mar, [facility] [address] [place] [address] [id number] Feb, Dental examination V72.2 [facility] [address] [place] [id number] [place] [address] [id number]- 5212 Oct, [facility] [address] [place] [address] 23732- 2815 Oct, [facility] [address] [place] [id number] [place] [address]- 2713 Aug, [facility] [address] [id number] [place] [address]- 2236 Aug, [facility] [place] [facility] [address] [id number] [place] [address]- 9146 Jul, [facility] [place] [facility] [address] [id number] [place] [address]- 2466 Jul, [facility] [place] [facility] [address] [id number] [place] [address]- 4385 Jun, [facility] [place] [facility] [address] [id number] [place] [address]- 4627 Jun, [facility] [place] [facility] [address] [id number] [place] [address]- 1005 Jun, [facility] [address] [id number] [place] [address]- 3919 Jun, [facility] [place] [facility] [address] [id number] [place] [address]- 7143 Jun, [facility] [place] [facility] [address] [id number] [place] [address]- 3436 Jun, [facility] [place] [facility] [address] [id number] [place] [address]- 6588 Jun, [facility] [place] [facility] [address] [id number] [place] [address]- 2546 Jun, [facility] [place] [facility] [address] [id number] [place] [address]- 2548 16 Jun, 2014 [facility] [place] [facility] [address] [id number] [place] [address] 2546 Jun, [facility] [place] [facility] [address] [id number] [place] [address]- 2546 Jun, [facility] [place] [facility] [address] [id number] [place] [address]- 1394 Jun, [facility] [place] [facility] [address] [id number] [place] [address]- 6130 Jun, [facility] [place] [facility] [address] [id number] [place] [address]- 8260 May, [facility] [place] [facility] [address] [id number] [place] [address]- 8504 May, [facility] [place] [facility] [address] [id number] [place] [address]- 8665 May, [facility] [place] [facility] [address] [id number] [place] [address]- 1148 May, [facility] [place] [facility] [address] [id number] [place] [address]- 5399 Apr, [facility] [place] [facility] [address] [id number] [place] [address]- 3107 Apr, [facility] [place] [facility] [address] [id number] [place] [address]- 4887 Apr, [facility] [place] [facility] [address] [id number] [place] [address]- 4152 Apr, [facility] [place] [facility] [address] [id number] [place] [address]- 9924 Apr, [facility] [place] [facility] [address] [id number] [place] [address]- 4726 Apr, [facility] [place] [facility] [address] [id number] [address]- 5135 Apr, [facility] [place] [facility] [address] [id number] [place] [address]- 8962 Apr, [facility] [place] [facility] [address] [id number] [place] [address]- 3514 Apr, [facility] [place] [facility] [address] [id number] [place] [address]- 7902 Apr, [facility] [place] [facility] [address] [id number] [place] [address]- 9901 Mar, [facility] [address] [facility] [id number] [address]- 4056 Mar, [facility] [address] [facility] [id number] [address]- 3690 Feb, [facility] [address] [facility] [id number] [place] [address]79 Feb, [facility] [address] [facility] [id number] [place] 6674 Feb, [facility] [address] [facility] [id number] [place] [address]- 5104 Feb, [facility] [address] [place] [id number] [address]- 9383 Jan, [facility] [address] [facility] [id number] [place] [address]- 5505 Jan, IMMUNIZATIONS No Known Immunizations SOCIAL HISTORY Never Assessed REASON FOR VISIT CT results PLAN OF CARE VITAL SIGNS MEDICATIONS Unknown Medications RESULTS Name Result Date Reference Range Ultrasound : Thyroid 2017-04-21 PROCEDURES No Known procedures INSTRUCTIONS MEDICATIONS ADMINISTERED No Known Medications MEDICAL (GENERAL) HISTORY Type Description Date Medical History arthritis Medical History memory loss/brain damage Medical History fractured right humerus and left fibula 08/2016 Surgical History knee scopes x3 Surgical History [...]
--- OUTSIDE RECORDS SUMMARY | 2017-11-23 18:52 | XMS REPORT ---
Author Author AGUSTÍN Degroot [facility] Address [address] [place] [address] Care Team Providers Care Power Press Supervisor Name Role Phone AGUSTÍN Degroot Unavailable PROBLEMS Type Condition ICD9-CM Code [id number] Code Onset Dates Condition Status SNOMED Code Problem Essential hypertension I10 Active 19249567 Problem Recurrent major depressive disorder, in full remission F33.42 Active 386950277 Problem Anxiety F41.9 Active 67574235 Problem Chronic migraine without aura without status migrainosus, not intractable G43.709 Active 778424571 Problem Mixed incontinence urge and stress N39.46 Active 384430232 Problem 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.29 Active 216223063 Problem Proteinuria, unspecified R80.9 Active 02244328 Problem Multinodular goiter E04.2 Active 881102569 Problem Type 2 diabetes mellitus with hyperglycemia, without long-term current use of insulin E11.65 Active 10900379 Problem Chronic obstructive pulmonary disease, unspecified COPD type J44.9 Active 37832342 Problem Morbid obesity due to excess calories E66.01 Active 000498772 Problem CPAP (continuous positive airway pressure) dependence Z99.89 Active 137243221 Problem Obstructive sleep apnea syndrome G47.33 Active 64043964 Problem Lumbago with sciatica, unspecified side M54.40 Active 046242514 Problem Other chronic pain G89.29 Active 67311963 Problem Chronic fatigue R53.82 Active 15734486 Problem Hypercholesterolemia E78.00 Active 81349049 Problem Gastroesophageal reflux disease with esophagitis K21.0 Active 908351830 Problem Bipolar 1 disorder F31.9 Active 785218320 ALLERGIES No Information ENCOUNTERS Encounter Location Date Diagnosis [facility] [address] [facility] [id number], [place] [address] Oct, [facility] [id number] [place] [address] 24888- 3695 Sep, [place] [id number] [place] [address] 52581- 4969 Sep, Other chronic pain G89.29 [place] [id number] [place] [address] 30799- 1173 Aug, Other chronic pain G89.29 [place] [address] [address]884- 0500 Aug, Chronic obstructive pulmonary disease, unspecified COPD [...] goiter E04.2 and BMI 40.0-44.9, adult Z68.41 [place] [id number] [place] [address] 70697- 1303 Aug, [place] [id number] [place] [address] 53330- 8122 Jul, Type 2 diabetes mellitus with hyperglycemia, without long- term current use of insulin E11.65 [place] [id number] [place] [address] 59104- 1545 Jul, Type 2 diabetes mellitus with hyperglycemia, without long- term current use of insulin E11.65 [place] [id number] [place] [address] 52113- 2383 Jul, [place] [id number] [place] [address] 02157- 5127 Jul, Type 2 diabetes mellitus with hyperglycemia, [...] immunization Z23 and BMI 40.0-44.9, adult Z68.41 [place] [address] 10863- 4669 Jun, Migraine without status migrainosus, not intractable, unspecified migraine type G43.909 ; Hypercholesterolemia E78.00 and Lumbago with sciatica, unspecified side M54.40 [place] [address] 01720- 7278 Jun, Recurrent major depressive disorder, in full remission F33.42 and Anxiety F41.9 [place] [address] 38700- 7771 Jun, [place] [address] 65891- 2998 May, Hypercholesterolemia E78.00 ; 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.29 ; Migraine without status migrainosus , not intractable, unspecified migraine type G43.909 and Lumbago with sciatica, unspecified side M54.40 [place] [id number] [place] [address] 12306- 8467 14 May, 2017 Multinodular goiter E04.2 [place] [address] 18597- 2206 06 May, 2017 [place] [address] 23969- 5426 13 Apr, 2017 Multinodular goiter E04.2 [place] [address] [place] [address] Apr, Abnormal imaging of thyroid R94.6 ; Hypercholesterolemia E78.00 and 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.29 [place] [id number] [place] [address] 98878- 8690 29 Mar, 2017 Abnormal imaging of thyroid R94.6 [place] [id number] [place] [address] 32931- 7106 Mar, Chest wall mass R22.2 [place] [id number] [place] [address] 31089- 8599 07 Mar, 2017 Type 2 diabetes mellitus with hyperglycemia, without long- term current use of insulin E11.65 ; Gastroesophageal reflux disease with esophagitis K21.0 ; Hypercholesterolemia E78.00 ; Proteinuria, unspecified R80.9 ; 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.29 ; Chest wall mass R22.2 and Precordial pain R07.2 [place] [id number] [place] [address] 39567- 5219 Feb, Recurrent major depressive disorder, in full remission F33.42 [place] [address] 24839- 7212 Feb, Recurrent major depressive disorder, in full remission F33.42 and Anxiety F41.9 [place] [id number] [place] [address] 94242- 8907 Feb, [facility] [id number] [place] [address] [id number] Jan, Dental examination Z01.20 and Dental caries K02.9 [place] [id number] [place] [address] 04260- 8881 Dec, [place] [address] 06429- 5841 Dec, [facility] [id number] [place] [address] 05152- 3476 Dec, Type 2 diabetes mellitus with [...] and Stress incontinence ( female) (male) N39.3 [facility] [address] [id number] Dec, Dental caries K02.9 [facility] [address] 63000- 5173 November, [facility] [address] 45518- 5540 November, Essential hypertension I10 ; Other chronic pain G89.29 ; Gastroesophageal reflux disease without esophagitis K21.9 and Anxiety F41.9 [facility] [id number] [place] [address] [id number] November, Dental examination Z01.20 [facility] [id number] [place] [address] 76593- 5671 Oct, Recurrent major depressive disorder, in full remission F33.42 [facility] [id number] [place] [address] 56608- 5284 Sep, Other chronic pain G89.29 [facility] [address] 82265- 5188 Sep, Other chronic pain G89.29 and Bipolar 1 disorder F31.9 [facility] [id number] [place] [address] 55220- 8900 Aug, Other chronic pain G89.29 [facility] [address] 89923- 6859 Jul, Gastroesophageal reflux disease without esophagitis K21.9 [place] [id number] [place] [address] 70687- 9491 Jun, Migraine without status migrainosus, not intractable, unspecified migraine type G43.909 [place] [id number] [place] [address] 55641- 7705 Jun, Type 2 diabetes mellitus with hyperosmolarity [...] ; Essential hypertension I10 and Hypercholesterolemia E78.00 [place] [address] 42282- 3309 May, [place] [address] 04042- 5709 Apr, Edema, unspecified type R60.9 ; Type [...] Z23 and Stress incontinence (female) (male) N39.3 [place] [id number] [place] [address] 45364- 2392 Apr, [place] [id number] [place] [address] 53259- 2019 Mar, Headache above the eye region R51 ; Lumbago with sciatica, unspecified side M54.40 ; Edema, unspecified type R60.9 and Migraine without status migrainosus, not intractable, unspecified migraine type G43.909 [facility] [id number] [place] [address] 21380- 7721 Mar, Chronic obstructive pulmonary disease, unspecified COPD type J44.9 ; Type 2 diabetes mellitus with hyperosmolarity without coma, without long-term current use of insulin E11.00 ; Other chronic pain G89.29 ; Migraine without status migrainosus, not intractable, unspecified migraine type G43.909 ; Left-sided chest wall pain R07.89 and Anxiety about health F41.8 [facility] [id number] [place] [address] 70651- 7138 Mar, [facility] [id number] [place] [address] 94756- 8144 Mar, [facility] [id number] [place] [address] 76016- 4239 Mar, [facility] [id number] [place] [address] 72012- 3018 Feb, [facility] [address] 14050- 6981 Feb, [facility] [id number] [place] [address] 97095- 0320 Feb, Chronic fatigue R53.82 ; Lumbago with sciatica, unspecified side M54.40 ; Gastroesophageal reflux disease with esophagitis K21.0 ; Other chronic pain G89.29 ; Morbid obesity due to excess calories E66.01 ; Migraine without status migrainosus, not intractable, unspecified migraine type G43.909 and Edema, unspecified type R60.9 [facility] [address] [place] [address] [id number] Feb, Dental examination Z01.20 [facility] [id number] [place] [address] 80255- 3144 Feb, [facility] [address] [address] 2546 Feb, Type 2 diabetes mellitus with hyperosmolarity without coma, without long-term current use of insulin E11.00 ; Chronic fatigue R53.82 ; Gastroesophageal reflux disease with esophagitis K21.0 ; Morbid obesity due to excess calories E66.01 ; Lumbago with sciatica, unspecified side M54.40 and Other chronic pain G89.29 [facility] [address] [place] [address] 33317- 1836 Feb, Type 2 diabetes mellitus with hyperosmolarity without coma, without long-term current use of insulin E11.00 ; Chronic fatigue R53.82 ; Gastroesophageal reflux disease with esophagitis K21.0 ; Morbid obesity due to excess calories E66.01 ; Lumbago with sciatica, unspecified side M54.40 and Other chronic pain G89.29 [facility] [address] [place] [address] [id number] Feb, Dental examination Z01.20 [facility] [address] [place] [address] 94720- 0476 Jan, [facility] [id number] [place] [address] 18568- 6136 Mar, [facility] [address] [place] [address] [id number] Feb, Dental examination V72.2 [facility] [id number] [place] [address] 59673- 9856 Oct, [facility] [address] [address] 2546 Oct, [facility] [id number] [place] [address] 52134- 8476 Aug, [facility] [address] [id number] [address] 2546 Aug, [facility] [address] [place] [address] 88794- 8786 Jul, [facility] [place] [facility] [address] [id number] [place] [address]- 5350 Jul, [facility] [place] [facility] [address] [id number] [place] [address]- 9129 Jun, [facility] [place] [facility] [address] [id number] [place] [address]- 3162 Jun, [facility] [place] [facility] [address] [id number] [place] [address]- 1231 Jun, [facility] [place] [facility] [address] [id number] [place] [address]- 3936 Jun, [facility] [place] [facility] [address] [id number] [place] [address]- 0864 Jun, [facility] [place] [facility] [address] [id number] [place] [address]- 3251 Jun, [facility] [place] [facility] [address] [id number] [place] [address]- 2063 Jun, [facility] [place] [facility] [address] [id number] [place] [address]- 4831 Jun, [facility] [place] [facility] [address] [id number] [place] [address]- 9879 Jun, [facility] [place] [facility] [address] [id number] [place] [address]- 8741 Jun, [facility] [place] [facility] [address] [id number] [place] [address]- 4590 Jun, [facility] [place] [facility] [address] [id number] [place] [address]- 9632 Jun, [facility] [place] [facility] [address] [id number] [place] [address]- 9543 Jun, [facility] [place] [facility] [address] [id number] [place] [address]- 2852 May, [facility] [place] [facility] [address] [id number] [place] [address]- 1758 May, [facility] [place] [facility] [address] [id number] [place] [address]- 4675 May, [facility] [place] [facility] [address] [id number] [place] [address] May, [facility] [place] [facility] [address] [id number] [place] [address]- 6211 Apr, [facility] [place] [facility] [address] [id number] [place] [address]- 2570 Apr, [facility] [place] [facility] [address] [id number] [place] [address]- 7446 Apr, [facility] [place] [facility] [address] [id number] [place] [address]- 1932 Apr, [facility] [place] [facility] [address] [id number] [place] [address]- 7924 Apr, [facility] [place] [facility] [address] [id number] [place] [address]- 4130 Apr, [facility] [place] [facility] [address] [id number] [place] [address]- 2641 Apr, [facility] [place] [facility] [address] [id number] [place] [address]- 7237 Apr, [facility] [place] [facility] [address] [id number] [place] [address]- 4334 Apr, [facility] [place] [facility] [address] [id number] [place] [address]- 8790 Apr, [facility] [place] [facility] [address] [id number] [place] [address]- 9996 Mar, [facility] [place] [facility] [address] [id number] [place] [address]- 6518 16 Mar, 2014 [facility] [place] [facility] [address] [id number] [place] [address]- 6432 Feb, [facility] [place] [facility] [address] [facility] [id number], [place] [address]- 6336 Feb, [facility] [address] [facility] [id number], [place] [address]- 2423 Feb, [facility] [address] [facility] [id number], [place] [address]- 2642 Feb, [facility] [address] [facility] [id number], [place] [address]- 9356 Jan, [facility] [address] [facility] [id number], [place] [address]- 3980 Jan, IMMUNIZATIONS No Known Immunizations SOCIAL HISTORY Never Assessed REASON FOR VISIT FYI only PLAN OF CARE VITAL SIGNS MEDICATIONS Unknown Medications RESULTS No Results PROCEDURES No Known [...] Hospitalization History psychiatric stay s/p overdose in [place] in 2006 Hospitalization History chest pain and UTI 02/2017
--- OUTSIDE RECORDS SUMMARY | 2017-11-23 18:52 | XMS REPORT ---
Author Author OBINNA HARDING [facility] Address [address] [place] [address] Care Team Providers Care Technical Sales Advisor Name Role Phone OBINNA HARDING Unavailable PROBLEMS Type Condition ICD9-CM Code OVA55-QH Code Onset Dates Condition Status SNOMED Code Problem Essential hypertension I10 Active 96968939 Problem Recurrent major depressive disorder, in full remission F33.42 Active 908647998 Problem Anxiety F41.9 Active 16093261 Problem Chronic migraine without aura without status migrainosus, not intractable G43.709 Active 970840917 Problem CPAP (continuous positive airway pressure) dependence Z99.89 Active 196271607 Problem Mixed incontinence urge and stress N39.46 Active 812381286 Problem 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 Active 1628314688618124 Problem 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.29 Active 265021754 Problem Proteinuria, unspecified R80.9 Active 28134887 Problem Multinodular goiter E04.2 Active 166939128 Problem Type 2 diabetes mellitus with hyperglycemia, without long-term current use of insulin E11.65 Active 48401073 Problem Chronic obstructive pulmonary disease, unspecified COPD type J44.9 Active 44024166 Problem Morbid obesity due to excess calories E66.01 Active 550583266 Problem Primary osteoarthritis of left knee M17.12 Active 069666625829222 Problem Obstructive sleep apnea syndrome G47.33 Active 82686930 Problem Lumbago with sciatica, unspecified side M54.40 Active 706210235 Problem Other chronic pain G89.29 Active 01446940 Problem Chronic fatigue R53.82 Active 12178087 Problem Hypercholesterolemia E78.00 Active 61726972 Problem Gastroesophageal reflux disease with esophagitis K21.0 Active 151330123 Problem Bipolar 1 disorder F31.9 Active 996796509 ALLERGIES No Information ENCOUNTERS Encounter Location Date Diagnosis [facility] [address] [address] Jan, [place] [address], [place] [address] Dec, [place] [id number] [place] [address] 91161- 2866 Oct, Recurrent major depressive disorder, in full remission F33.42 and Anxiety F41.9 [place] [id number] [place] [address] 17855- 6137 Sep, Other chronic pain G89.29 [place] [address] [place] [address] 59352- 6221 Aug, Other chronic pain G89.29 [place] [address] [place] [id number] [place] [address] 33299- 5068 Aug, Chronic obstructive pulmonary disease, unspecified COPD [...] goiter E04.2 and BMI 40.0-44.9, adult Z68.41 [place] [id number] [place] [address] 90985- 9898 Aug, [place] [id number] [place] [address] 17400- 2099 Jul, Type 2 diabetes mellitus with hyperglycemia, without long- term current use of insulin E11.65 [place] [address] [place] [address] 14175- 6519 Jul, Type 2 diabetes mellitus with hyperglycemia, without long- term current use of insulin E11.65 [place] [address] [place] [id number] [place] [address] 24989- 4960 Jul, [place] [address] [address]89- 2645 Jul, Type 2 diabetes mellitus with hyperglycemia, [...] immunization Z23 and BMI 40.0-44.9, adult Z68.[address] [address]- [address] Jun, Migraine without status migrainosus, not intractable, unspecified migraine type G43.909 ; Hypercholesterolemia E78.00 and Lumbago with sciatica, unspecified side M54.40 [place] [id number] [place] [address] 44666- 9221 Jun, Recurrent major depressive disorder, in full remission F33.42 and Anxiety F41.9 [place] [id number] [place] [address] 22790- 6773 Jun, [address] [address]- [address] May, Hypercholesterolemia E78.00 ; 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.29 ; Migraine without status migrainosus , not intractable, unspecified migraine type G43.909 and Lumbago with sciatica, unspecified side M54.40 [place] [address] [place] [id number] [place] [address] 23401- 9431 14 May, 2017 Multinodular goiter E04.2 [place] [address] [place] [id number] [place] [address] 96973- 2715 May, [place] [address] [address]61- 39[address] Apr, Multinodular goiter E04.2 [place] [address] [place] [id number] [place] [address] 06277- 0168 06 Apr, 2017 Abnormal imaging of thyroid R94.6 ; Hypercholesterolemia E78.00 and 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.29 [place] [address] [place] [id number] [place] [address] 76523- 9141 29 Mar, 2017 Abnormal imaging of thyroid R94.6 [place] [address] 71983- 7014 20 Mar, 2017 Chest wall mass R22.2 [place] [address] 16453- 9690 07 Mar, 2017 Type 2 diabetes mellitus with hyperglycemia, without long- term current use of insulin E11.65 ; Gastroesophageal reflux disease with esophagitis K21.0 ; Hypercholesterolemia E78.00 ; Proteinuria, unspecified R80.9 ; 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.29 ; Chest wall mass R22.2 and Precordial pain R07.2 [place] [address] [place] [id number] [place] [address] 17388- 1991 Feb, Recurrent major depressive disorder, in full remission F33.42 [place] [address] [place] [id number] [place] [address] 47498- 2368 Feb, Recurrent major depressive disorder, in full remission F33.42 and Anxiety F41.9 [place] [address] 84714- 9861 Feb, [facility] [address] [place] [id number] [place] [address] [id number] Jan, Dental examination Z01.20 and Dental caries K02.[address] 90388- 4146 Dec, [facility] [address] [place] [id number] [place] [address] 41592- 0659 Dec, [facility] [address] [place] [id number] [place] [address] 08072- 2356 Dec, Type 2 diabetes mellitus with hyperosmolarity [...] and Stress incontinence ( female) (male) N39.3 [facility] [address] [id number] Dec, Dental caries K02.9 [facility] [address] [place] [id number] [place] [address] 05050- 7787 November, [facility] [address] [place] [id number] [place] [address] 94476- 3344 November, Essential hypertension I10 ; Other chronic pain G89.29 ; Gastroesophageal reflux disease without esophagitis K21.9 and Anxiety F41.9 [facility] [address] [place] [address] [id number] November, Dental examination Z01.20 [facility] [address] [place] [address] 86568- 3780 Oct, Recurrent major depressive disorder, in full remission F33.42 [facility] [address] [place] [id number] [place] [address] [id number]- 8500 Sep, Other chronic pain G89.29 [facility] [address] [place] [id number] [place] [address] 82622- 0237 Sep, Other chronic pain G89.29 and Bipolar 1 disorder F31.9 [place] [address] [place] [address] 03070- 8383 Aug, Other chronic pain G89.29 [place] [address] [place] [id number] [place] [address] 43059- 3754 Jul, Gastroesophageal reflux disease without esophagitis K21.9 [place] [address] [place] [id number] [place] [address] 36940- 7203 Jun, Migraine without status migrainosus, not intractable, unspecified migraine type G43.909 [place] [address] [place] [id number] [place] [address] 75366- 0341 Jun, Type 2 diabetes mellitus with hyperosmolarity [...] ; Essential hypertension I10 and Hypercholesterolemia E78.00 [place] [address] [place] [address] 09752- 5106 May, [place] [address] [place] [id number] [place] [address] 14737- 4803 Apr, Edema, unspecified type R60.9 ; Type [...] Z23 and Stress incontinence (female) (male) N39.3 [place] [address] [place] [id number] [place] [address] 61010- 6235 Apr, [place] [address] 65205- 7551 Mar, Headache above the eye region R51 ; Lumbago with sciatica, unspecified side M54.40 ; Edema, unspecified type R60.9 and Migraine without status migrainosus, not intractable, unspecified migraine type G43.909 [place] [address] [place] [id number] [place] [address] 25932- 4126 Mar, Chronic obstructive pulmonary disease, unspecified COPD type J44.9 ; Type 2 diabetes mellitus with hyperosmolarity without coma, without long-term current use of insulin E11.00 ; Other chronic pain G89.29 ; Migraine without status migrainosus, not intractable, unspecified migraine type G43.909 ; Left-sided chest wall pain R07.89 and Anxiety about health F41.8 [place] [address] [place] [id number] [place] [address] 97321- 1832 Mar, [place] [address] [place] [id number] [place] [address] 29867- 6210 Mar, [place] [address] [place] [id number] [place] [address] 07891- 2282 Mar, [place] [address] [place] [id number] [place] [address] 86557- 7371 Feb, [place] [address] [place] [id number] [place] [address] 51548- 8377 Feb, [place] [address] [place] [id number] [place] [address] 38633- 0065 Feb, Chronic fatigue R53.82 ; Lumbago with sciatica, unspecified side M54.40 ; Gastroesophageal reflux disease with esophagitis K21.0 ; Other chronic pain G89.29 ; Morbid obesity due to excess calories E66.01 ; Migraine without status migrainosus, not intractable, unspecified migraine type G43.909 and Edema, unspecified type R60.9 [facility] [address] [place] [id number] [id number] Feb, Dental examination Z01.20 [facility] [address] [place] [id number] [place] [address] 61202- 2681 Feb, [facility] [address] [place] [id number] [place] [address] 74699- 0650 Feb, Type 2 diabetes mellitus with hyperosmolarity without coma, without long-term current use of insulin E11.00 ; Chronic fatigue R53.82 ; Gastroesophageal reflux disease with esophagitis K21.0 ; Morbid obesity due to excess calories E66.01 ; Lumbago with sciatica, unspecified side M54.40 and Other chronic pain G89.29 [facility] [address] [place] [address] 99817- 4170 Feb, Type 2 diabetes mellitus with hyperosmolarity without coma, without long-term current use of insulin E11.00 ; Chronic fatigue R53.82 ; Gastroesophageal reflux disease with esophagitis K21.0 ; Morbid obesity due to excess calories E66.01 ; Lumbago with sciatica, unspecified side M54.40 and Other chronic pain G89.29 [facility] [address] [place] [address] [id number] Feb, Dental examination Z01.20 [facility] [address], [place] [address]- 6140 Jan, [facility] [address] [place] [id number] [place] [address] 98676- 4870 Mar, [facility] [address] [place] [address] [id number] Feb, Dental examination V72.2 [facility] [address] [place] [id number] [place] [address] [id number]- 4520 Oct, [facility] [address] [place] [address] 26402- 8321 Oct, [facility] [address] [place] [id number] [place] [address]64 Aug, [facility] [address] [id number] [place] [address]- 8176 Aug, [facility] [place] [facility] [address] [id number] [place] [address]- 1286 Jul, [facility] [place] [facility] [address] [id number] [place] [address]- 9466 Jul, [facility] [place] [facility] [address] [id number] [place] [address]- 6132 Jun, [facility] [place] [facility] [address] [id number] [place] [address]- 1682 Jun, [facility] [place] [facility] [address] [id number] [place] [address]- 4813 Jun, [facility] [address] [id number] [place] [address]- 7817 Jun, [facility] [place] [facility] [address] [id number] [place] [address]- 9678 Jun, [facility] [place] [facility] [address] [id number] [place] [address]- 5265 Jun, [facility] [place] [facility] [address] [id number] [place] [address]- 4612 Jun, [facility] [place] [facility] [address] [id number] [place] [address]- 2546 Jun, [facility] [place] [facility] [address] [id number] [place] [address]- 2544 16 Jun, 2014 [facility] [place] [facility] [address] [id number] [place] [address] 2546 Jun, [facility] [place] [facility] [address] [id number] [place] [address]- 2546 Jun, [facility] [place] [facility] [address] [id number] [place] [address]- 9527 Jun, [facility] [place] [facility] [address] [id number] [place] [address]- 6536 Jun, [facility] [place] [facility] [address] [id number] [place] [address]- 6720 May, [facility] [place] [facility] [address] [id number] [place] [address]- 2132 May, [facility] [place] [facility] [address] [id number] [place] [address]- 8313 May, [facility] [place] [facility] [address] [id number] [place] [address]- 5252 May, [facility] [place] [facility] [address] [id number] [place] [address]- 4211 Apr, [facility] [place] [facility] [address] [id number] [place] [address]- 2254 Apr, [facility] [place] [facility] [address] [id number] [place] [address]- 2091 Apr, [facility] [place] [facility] [address] [id number] [place] [address]- 1919 Apr, [facility] [place] [facility] [address] [id number] [place] [address]- 1050 Apr, [facility] [place] [facility] [address] [id number] [place] [address]- 1263 Apr, [facility] [place] [facility] [address] [id number], [place] [address]- 2052 Apr, [facility] [place] [facility] [address] [id number] [place] [address]- 0967 Apr, [facility] [place] [facility] [address] [id number] [place] [address]- 3577 Apr, [facility] [place] [facility] [address] [id number] [place] [address]- 0482 Apr, [facility] [place] [facility] [address] [id number] [place] [address]- 6095 Mar, [facility] [address] [facility] [id number], [place] [address]- 8615 Mar, [facility] [address] [facility] [id number], [place] [address]- 8088 Feb, [facility] [address] [facility] [id number], [place] [address]- 8139 Feb, [facility] [address] [facility] [id number], [place] [address]- 8702 Feb, [facility] [address] [facility] [id number], [place] [address]- 7685 Feb, [facility] [address] [place] [id number] [address]- 1642 Jan, [facility] [address] [facility] [id number], [place] [address]- 5394 Jan, IMMUNIZATIONS No Known Immunizations SOCIAL HISTORY Never Assessed REASON FOR VISIT Lab (walk-in) PLAN OF CARE VITAL SIGNS MEDICATIONS Unknown Medications RESULTS Name Result Date Reference Range TSH 2017-04-23 TSH 1.330 0.450-4.500 LIPID PANEL 2017-04-23 Cholesterol, Total 163 100-199 Triglycerides 214 0-149 HDL Cholesterol 42 >39 VLDL Cholesterol Juvenal 43 5-40 LDL Cholesterol Calc 78 0-99 CMP 2017-04-23 Glucose, Serum 75 65-99 BUN 13 6-24 Creatinine, Serum 0.80 0.57-1.00 eGFR If NonAfricn Am 90 >59 eGFR If Africn Am 104 >59 BUN/Creatinine Ratio 16 9-23 Sodium, Serum 141 134-144 Potassium, Serum 4.2 3.5-5.2 Chloride, Serum 106 96-106 Carbon Dioxide, Total 16 18-29 Calcium, Serum 9.3 8.7-10.2 Protein, Total, Serum 6.6 6.0-8.5 Albumin, Serum 4.0 3.5-5.5 Globulin, Total 2.6 1.5-4.5 A/G Ratio 1.5 1.2-2.2 Bilirubin, Total <0.2 0.0-1.2 Alkaline Phosphatase, S 97 39-117 AST (SGOT) 10 0-40 ALT (SGPT) 11 0-32 PROCEDURES Procedure Date Ordered Result Body Site LAB NOT BILLED BY [facility] Apr 23, 2017 VENJUNO, ROUTINE* Apr 23, 2017 INSTRUCTIONS MEDICATIONS ADMINISTERED No Known Medications [...] Hospitalization History psychiatric stay s/p overdose in [place] in 2006 Hospitalization History chest pain and UTI 02/2017
--- OUTSIDE RECORDS SUMMARY | 2017-11-23 18:52 | XMS REPORT ---
Author Author YAS AGUSTÍN Organization [facility] Address [address] [place] [address] Care Team Providers Care Mushroom Growing Supervisor Name Role Phone ARUNA SORENSONE Unavailable PROBLEMS Type Condition ICD9-CM Code BFP67-CA Code Onset Dates Condition Status SNOMED Code Problem Bipolar 1 disorder F31.9 Active 340282758 Problem Anxiety about health F41.8 Active 707245613 Problem Encounter for immunization Z23 Active 067010101 Problem Recurrent major depressive disorder, in full remission F33.42 Active 646590858 Problem Gastroesophageal reflux disease without esophagitis K21.9 Active 296921616 Problem Edema, unspecified type R60.9 Active 530142107 Problem Migraine without status migrainosus, not intractable, unspecified migraine type G43.909 Active 48819772 Problem Anxiety F41.9 Active 71575969 Problem Essential hypertension I10 Active 18353559 Problem Lumbago with sciatica, unspecified side M54.40 Active 185214977 Problem Other chronic pain G89.29 Active 84422412 Problem Chronic obstructive pulmonary disease, unspecified COPD type J44.9 Active 15597626 Problem Gastroesophageal reflux disease with esophagitis K21.0 Active 989184179 Problem Type 2 diabetes mellitus with hyperosmolarity without coma, without long-term current use of insulin E11.00 Active 14901937 Problem Morbid obesity due to excess calories E66.01 Active 772135624 Problem Hypercholesterolemia E78.00 Active 65495561 Problem Chronic fatigue R53.82 Active 85687832 Problem Stress incontinence (female) (male) N39.3 Active 13018198 ALLERGIES Unknown Allergies SOCIAL HISTORY No smoking Hx information available PLAN OF CARE VITAL SIGNS MEDICATIONS Medication Instructions Dosage Frequency Start Date End Date Duration Status Omeprazole 20 mg Orally Once a day take 1 capsule (20 mg) by oral route once daily before a meal 24h Feb, 30 days Active RESULTS No Results PROCEDURES No Known procedures IMMUNIZATIONS No Known Immunizations
--- OUTSIDE RECORDS SUMMARY | 2017-11-23 18:53 | XMS REPORT ---
Author Author ART RG [facility] Address Unknown Care Team Providers Care Feed Management Advisor Name Role Phone ART RG Unavailable PROBLEMS Type Condition ICD9-CM Code JAB45-LQ Code Onset Dates Condition Status SNOMED Code Problem Edema, unspecified type R60.9 Active 106945111 Problem Anxiety F41.9 Active 39980124 Problem Essential hypertension I10 Active 85020759 Problem Multinodular goiter E04.2 Active 091742320 Problem Gastroesophageal reflux disease with esophagitis K21.0 Active 423321295 Problem Type 2 diabetes mellitus with hyperglycemia, without long-term current use of insulin E11.65 Active 18545914 Problem Type 2 diabetes mellitus with hyperosmolarity without coma, without long-term current use of insulin E11.00 Active 14440677 Problem Chronic obstructive pulmonary disease, unspecified COPD type J44.9 Active 94602974 Problem Recurrent major depressive disorder, in full remission F33.42 Active 095819235 Problem Gastroesophageal reflux disease without esophagitis K21.9 Active 195380355 Problem 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.29 Active 107448838 Problem Proteinuria, unspecified R80.9 Active 72680325 Problem Lumbago with sciatica, unspecified side M54.40 Active 745339090 Problem Other chronic pain G89.29 Active 56955490 Problem Chronic fatigue R53.82 Active 73647744 Problem Morbid obesity due to excess calories E66.01 Active 510894703 Problem Encounter for immunization Z23 Active 000559273 Problem Bipolar 1 disorder F31.9 Active 096111721 Problem Hypercholesterolemia E78.00 Active 12569863 Problem Migraine without status migrainosus, not intractable, unspecified migraine type G43.909 Active 71218148 Problem Stress incontinence (female) (male) N39.3 Active 97057651 Problem Anxiety about health F41.8 Active 884931990 ALLERGIES Substance Reaction Event Type Date Status Penicillin V Potassium Unknown Drug Allergy November, Active Iodine Unknown Drug Allergy November, Active SOCIAL HISTORY Never Assessed PLAN OF CARE Activity Details Follow Up prn Reason:te 45 minutes VITAL SIGNS Blood pressure systolic 124 mmHg 2016-11-23 Blood pressure diastolic 66 mmHg 2016-11-23 MEDICATIONS Medication Instructions Dosage Frequency Start Date End Date Duration Status Tizanidine HCl 2 MG Orally every 8 hrs 1 tablet as needed 8h Active Gabapentin 300 MG Orally 3 times a day 3 capsules 8h 30 days Active Topamax 50 mg Orally Twice a day 3 tablets 12h Active Propranolol HCl 20 mg Orally Twice a day 1 tablet 12h Mar, Active Hydrochlorothiazide 50 mg Orally Once a day 1 tablet 24h Mar, Active Naproxen 500 MG Orally 2 times a day 1 tablet 12h Active Atorvastatin Calcium 10 mg Orally Once a day 1 tablet 24h Feb, Active Oxybutynin Chloride 5 TAKE ONE TABLET BY MOUTH TWICE A DAY 30 Active Omeprazole 20 mg Orally Once a day take 1 capsule (20 mg) by oral route once daily before a meal 24h Feb, 30 days Active Metformin HCl 500 MG Orally Twice a day 1 tablet with meals 12h May, Active Sumatriptan Succinate 100 MG Orally Once a day 1 tablet as needed 24h 30 days Active Abilify 10 mg Orally Once a day 1 tablet 24h Active RESULTS No Results PROCEDURES Procedure Date Ordered Result Body Site LTD ORAL EVALUATION - PROBLEM FOCUS November 23, 2016 INTRAORL-PERIAPICAL 1 FILM [id number] November 23, 2016 INTRAORL-PERIAPICAL EA ADD FILM November 23, 2016 IMMUNIZATIONS No Known Immunizations MEDICAL (GENERAL) HISTORY [...] Hospitalization History psychiatric stay s/p overdose in [place] in 2006 Hospitalization History chest pain and UTI 02/2017
--- OUTSIDE RECORDS SUMMARY | 2017-11-23 18:53 | XMS REPORT ---
Author Author AGUSTÍN SORENSON Organization [facility] Address [address] [place] [address] Care Team Providers Care Slipper Maker Name Role Phone AGUSTÍN SORENSON Unavailable PROBLEMS Type Condition ICD9-CM Code UHG75-IG Code Onset Dates Condition Status SNOMED Code Problem Edema, unspecified type R60.9 Active 641954544 Problem Anxiety F41.9 Active 07617702 Problem Essential hypertension I10 Active 69590334 Problem Multinodular goiter E04.2 Active 975350676 Problem Gastroesophageal reflux disease with esophagitis K21.0 Active 340950579 Problem Type 2 diabetes mellitus with hyperglycemia, without long-term current use of insulin E11.65 Active 16386607 Problem Type 2 diabetes mellitus with hyperosmolarity without coma, without long-term current use of insulin E11.00 Active 86003521 Problem Chronic obstructive pulmonary disease, unspecified COPD type J44.9 Active 40201296 Problem Recurrent major depressive disorder, in full remission F33.42 Active 538050248 Problem Gastroesophageal reflux disease without esophagitis K21.9 Active 915677450 Problem 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.29 Active 527845571 Problem Proteinuria, unspecified R80.9 Active 71704253 Problem Lumbago with sciatica, unspecified side M54.40 Active 003724693 Problem Other chronic pain G89.29 Active 68698540 Problem Chronic fatigue R53.82 Active 83207090 Problem Morbid obesity due to excess calories E66.01 Active 959171627 Problem Encounter for immunization Z23 Active 359649732 Problem Bipolar 1 disorder F31.9 Active 123634357 Problem Hypercholesterolemia E78.00 Active 76796744 Problem Migraine without status migrainosus, not intractable, unspecified migraine type G43.909 Active 49060519 Problem Stress incontinence (female) (male) N39.3 Active 92490750 Problem Anxiety about health F41.8 Active 069787739 ALLERGIES No Information SOCIAL HISTORY Never Assessed PLAN OF CARE VITAL SIGNS MEDICATIONS Medication Instructions Dosage Frequency Start Date End Date Duration Status Propranolol HCl 20 mg Orally Twice a day 1 tablet 12h Mar, Active Citalopram Hydrobromide 20 mg Orally Once a day 1 tablet 24h Jun, 30 day(s) Active Omeprazole 20 mg Orally Once a day take 1 capsule (20 mg) by oral route once daily before a meal 24h Feb, 30 days Active Naproxen 500 mg Orally 2 times a day 1 tablet 12h Active RESULTS No Results PROCEDURES No Known [...] Hospitalization History psychiatric stay s/p overdose in [place] in 2006 Hospitalization History chest pain and UTI 02/2017
--- OUTSIDE RECORDS SUMMARY | 2017-11-23 18:54 | XMS REPORT ---
Author Author SYDNEE VEGA Organization [facility] Address [address] [place] [address] Care Team Providers Care Automatic Engraver Name Role Phone SYDNEE VEGA Unavailable PROBLEMS Type Condition ICD9-CM Code JDY00-OC Code Onset Dates Condition Status SNOMED Code Problem Stress incontinence (female) (male) N39.3 Active 40397314 Problem Anxiety about health F41.8 Active 349487658 Problem Bipolar 1 disorder F31.9 Active 764965907 Problem Recurrent major depressive disorder, in full remission F33.42 Active 586768303 Problem Anxiety F41.9 Active 65044854 Problem Edema, unspecified type R60.9 Active 065436950 Problem Migraine without status migrainosus, not intractable, unspecified migraine type G43.909 Active 36908983 Problem Gastroesophageal reflux disease without esophagitis K21.9 Active 726669300 Problem Essential hypertension I10 Active 28860805 Problem Other chronic pain G89.29 Active 34044700 Problem Lumbago with sciatica, unspecified side M54.40 Active 620588980 Problem Chronic obstructive pulmonary disease, unspecified COPD type J44.9 Active 43032476 Problem Chronic fatigue R53.82 Active 64342310 Problem Type 2 diabetes mellitus with hyperosmolarity without coma, without long-term current use of insulin E11.00 Active 41645364 Problem Morbid obesity due to excess calories E66.01 Active 943030927 Problem Encounter for immunization Z23 Active 446208862 Problem Gastroesophageal reflux disease with esophagitis K21.0 Active 913575774 Problem Hypercholesterolemia E78.00 Active 06589306 ALLERGIES Unknown Allergies SOCIAL HISTORY No smoking Hx information available PLAN OF CARE VITAL SIGNS MEDICATIONS Medication Instructions Dosage Frequency Start Date End Date Duration Status Sumatriptan Succinate 100 MG Orally Once a day 1 tablet as needed 24h 30 days Active RESULTS No Results PROCEDURES No Known procedures IMMUNIZATIONS No Known Immunizations
--- OUTSIDE RECORDS SUMMARY | 2017-11-23 18:54 | XMS REPORT ---
Author Author OBINNA HARDING [facility] Address [address] [place] [address] Care Team Providers Care Meat Slicer Name Role Phone OBINNA HARDING Unavailable PROBLEMS Type Condition ICD9-CM Code XFA15-WZ Code Onset Dates Condition Status SNOMED Code Problem Essential hypertension I10 Active 62415961 Problem Recurrent major depressive disorder, in full remission F33.42 Active 175927169 Problem Anxiety F41.9 Active 56421308 Problem Chronic migraine without aura without status migrainosus, not intractable G43.709 Active 466819687 Problem CPAP (continuous positive airway pressure) dependence Z99.89 Active 726999922 Problem Mixed incontinence urge and stress N39.46 Active 775741300 Problem 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 Active 5961097370705564 Problem 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.29 Active 707247534 Problem Proteinuria, unspecified R80.9 Active 82466162 Problem Multinodular goiter E04.2 Active 026161257 Problem Type 2 diabetes mellitus with hyperglycemia, without long-term current use of insulin E11.65 Active 92675466 Problem Chronic obstructive pulmonary disease, unspecified COPD type J44.9 Active 48510129 Problem Morbid obesity due to excess calories E66.01 Active 019532445 Problem Primary osteoarthritis of left knee M17.12 Active 515923200693637 Problem Obstructive sleep apnea syndrome G47.33 Active 37722848 Problem Lumbago with sciatica, unspecified side M54.40 Active 251488767 Problem Other chronic pain G89.29 Active 66899232 Problem Chronic fatigue R53.82 Active 87715874 Problem Hypercholesterolemia E78.00 Active 59219552 Problem Gastroesophageal reflux disease with esophagitis K21.0 Active 850686514 Problem Bipolar 1 disorder F31.9 Active 835654468 ALLERGIES No Information ENCOUNTERS Encounter Location Date Diagnosis [facility] [address] [address] Jan, [place] [address] [address] Dec, [place] [id number] [place] [address] 26784- 8590 Oct, Recurrent major depressive disorder, in full remission F33.42 and Anxiety F41.9 [place] [id number] [place] [address] 80073- 1604 Sep, Other chronic pain G89.29 [place] [id number] [place] [address] 24851- 8730 Aug, Other chronic pain G89.29 [place] [address] [place] [id number] [place] [address] 17324- 2146 Aug, Chronic obstructive pulmonary disease, unspecified COPD [...] goiter E04.2 and BMI 40.0-44.9, adult Z68.41 [place] [id number] [place] [address] 11835- 6424 Aug, [place] [id number] [place] [address] 60631- 7164 Jul, Type 2 diabetes mellitus with hyperglycemia, without long- term current use of insulin E11.65 [place] [address] [place] [address] 80326- 6811 Jul, Type 2 diabetes mellitus with hyperglycemia, without long- term current use of insulin E11.65 [place] [address] [place] [id number] [place] [address] 35558- 7137 Jul, [place] [address] [address]47- 6008 Jul, Type 2 diabetes mellitus with hyperglycemia, [...] immunization Z23 and BMI 40.0-44.9, adult Z68.[address] [address]- [address]853 Jun, Migraine without status migrainosus, not intractable, unspecified migraine type G43.909 ; Hypercholesterolemia E78.00 and Lumbago with sciatica, unspecified side M54.40 [place] [id number] [place] [address] 43651- 9837 Jun, Recurrent major depressive disorder, in full remission F33.42 and Anxiety F41.9 [place] [id number] [place] [address] 47702- 0905 Jun, [address] [address]- [address]487 May, Hypercholesterolemia E78.00 ; 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.29 ; Migraine without status migrainosus , not intractable, unspecified migraine type G43.909 and Lumbago with sciatica, unspecified side M54.40 [place] [address] [place] [id number] [place] [address] 48158- 6316 14 May, 2017 Multinodular goiter E04.2 [place] [address] [place] [id number] [place] [address] 84648- 4096 May, [place] [address] 38992- 8545 Apr, Multinodular goiter E04.2 [place] [address] [place] [id number] [place] [address] 48813- 3148 06 Apr, 2017 Abnormal imaging of thyroid R94.6 ; Hypercholesterolemia E78.00 and 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.29 [place] [address] [place] [id number] [place] [address] 64454- 3122 29 Mar, 2017 Abnormal imaging of thyroid R94.6 [place] [address] 8[address]88- 0336 20 Mar, 2017 Chest wall mass R22.2 [place] [address] 83970- 2536 07 Mar, 2017 Type 2 diabetes mellitus with hyperglycemia, without long- term current use of insulin E11.65 ; Gastroesophageal reflux disease with esophagitis K21.0 ; Hypercholesterolemia E78.00 ; Proteinuria, unspecified R80.9 ; 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.29 ; Chest wall mass R22.2 and Precordial pain R07.2 [place] [address] [place] [id number] [place] [address] 97179- 9705 Feb, Recurrent major depressive disorder, in full remission F33.42 [place] [address] [place] [id number] [place] [address] 57056- 9820 Feb, Recurrent major depressive disorder, in full remission F33.42 and Anxiety F41.9 [place] [address] 56021- 1158 Feb, [facility] [address] [place] [id number] [place] [address] [id number] Jan, Dental examination Z01.20 and Dental caries K02.[address] 48931- 6266 Dec, [facility] [address] [place] [address] [id number] [place] [address] 57142- 7948 Dec, [facility] [address] [place] [id number] [place] [address] 56628- 7116 Dec, Type 2 diabetes mellitus with hyperosmolarity [...] and Stress incontinence ( female) (male) N39.3 [facility] [address] [id number] Dec, Dental caries K02.9 [facility] [address] [place] [id number] [place] [address] 63123- 5297 November, [facility] [address] [place] [address] [id number] [place] [address] 35734- 0070 November, Essential hypertension I10 ; Other chronic pain G89.29 ; Gastroesophageal reflux disease without esophagitis K21.9 and Anxiety F41.9 [facility] [address] [place] [address] [id number] November, Dental examination Z01.20 [facility] [address] [place] [address] 20122- 6375 Oct, Recurrent major depressive disorder, in full remission F33.42 [facility] [address] [place] [id number] [place] [address] [id number]- 7065 Sep, Other chronic pain G89.29 [facility] [address] [place] [id number] [place] [address] 75539- 9549 Sep, Other chronic pain G89.29 and Bipolar 1 disorder F31.9 [place] [address] [place] [address] 52394- 0690 Aug, Other chronic pain G89.29 [place] [address] [place] [id number] [place] [address] 82346- 6170 Jul, Gastroesophageal reflux disease without esophagitis K21.9 [place] [address] [place] [id number] [place] [address] 54720- 0765 Jun, Migraine without status migrainosus, not intractable, unspecified migraine type G43.909 [place] [address] [place] [id number] [place] [address] 96085- 9328 Jun, Type 2 diabetes mellitus with hyperosmolarity [...] ; Essential hypertension I10 and Hypercholesterolemia E78.00 [place] [id number] [place] [address] 99097- 2418 May, [place] [address] [place] [id number] [place] [address] 89308- 6961 Apr, Edema, unspecified type R60.9 ; Type [...] Z23 and Stress incontinence (female) (male) N39.3 [place] [address] [place] [id number] [place] [address] 45311- 0201 Apr, [place] [address] 68381- 5921 Mar, Headache above the eye region R51 ; Lumbago with sciatica, unspecified side M54.40 ; Edema, unspecified type R60.9 and Migraine without status migrainosus, not intractable, unspecified migraine type G43.909 [place] [address] [place] [id number] [place] [address] 05702- 2975 Mar, Chronic obstructive pulmonary disease, unspecified COPD type J44.9 ; Type 2 diabetes mellitus with hyperosmolarity without coma, without long-term current use of insulin E11.00 ; Other chronic pain G89.29 ; Migraine without status migrainosus, not intractable, unspecified migraine type G43.909 ; Left-sided chest wall pain R07.89 and Anxiety about health F41.8 [place] [address] [place] [id number] [place] [address] 11474- 2097 Mar, [place] [address] [place] [id number] [place] [address] 03399- 6960 Mar, [place] [address] [place] [id number] [place] [address] 20849- 0315 Mar, [place] [address] [place] [id number] [place] [address] 24731- 6821 Feb, [place] [address] [place] [id number] [place] [address] 12272- 8951 Feb, [place] [address] [place] [id number] [place] [address] 18346- 1154 Feb, Chronic fatigue R53.82 ; Lumbago with sciatica, unspecified side M54.40 ; Gastroesophageal reflux disease with esophagitis K21.0 ; Other chronic pain G89.29 ; Morbid obesity due to excess calories E66.01 ; Migraine without status migrainosus, not intractable, unspecified migraine type G43.909 and Edema, unspecified type R60.9 [facility] [address] [place] [id number] [id number] Feb, Dental examination Z01.20 [facility] [address] [place] [id number] [place] [address] 10027- 3148 Feb, [facility] [address] [place] [id number] [place] [address] 33016- 7955 Feb, Type 2 diabetes mellitus with hyperosmolarity without coma, without long-term current use of insulin E11.00 ; Chronic fatigue R53.82 ; Gastroesophageal reflux disease with esophagitis K21.0 ; Morbid obesity due to excess calories E66.01 ; Lumbago with sciatica, unspecified side M54.40 and Other chronic pain G89.29 [facility] [address] [place] [address] 82572- 4717 Feb, Type 2 diabetes mellitus with hyperosmolarity without coma, without long-term current use of insulin E11.00 ; Chronic fatigue R53.82 ; Gastroesophageal reflux disease with esophagitis K21.0 ; Morbid obesity due to excess calories E66.01 ; Lumbago with sciatica, unspecified side M54.40 and Other chronic pain G89.29 [facility] [address] [place] [address] [id number] Feb, Dental examination Z01.20 [facility] [address], [place] [address] 5764 Jan, [facility] [address] [place] [id number] [place] [address] 18291- 6670 Mar, [facility] [address] [place] [address] [id number] Feb, Dental examination V72.2 [facility] [address] [place] [id number] [place] [address] [id number]- 6240 Oct, [facility] [address] [place] [address] 09517- 0704 Oct, [facility] [address] [place] [id number] [place] [address]- 3081 Aug, [facility] [address] [id number] [place] [address]- 1226 Aug, [facility] [place] [facility] [address] [id number] [place] [address]- 2746 Jul, [facility] [place] [facility] [address] [id number] [place] [address]- 7736 Jul, [facility] [place] [facility] [address] [id number] [place] [address]- 0947 Jun, [facility] [place] [facility] [address] [id number] [place] [address]- 8876 Jun, [facility] [place] [facility] [address] [id number] [place] [address]- 6312 Jun, [facility] [address] [id number] [place] [address]- 7905 Jun, [facility] [place] [facility] [address] [id number] [place] [address]- 2500 Jun, [facility] [place] [facility] [address] [id number] [place] [address]- 7619 Jun, [facility] [place] [facility] [address] [id number] [place] [address]- 1752 Jun, [facility] [place] [facility] [address] [id number] [place] [address]- 2546 Jun, [facility] [place] [facility] [address] [id number] [place] [address]- 2542 16 Jun, 2014 [facility] [place] [facility] [address] [id number] [place] [address] 2546 Jun, [facility] [place] [facility] [address] [id number] [place] [address]- 2546 Jun, [facility] [place] [facility] [address] [id number] [place] [address]- 7527 Jun, [facility] [place] [facility] [address] [id number] [place] [address]- 6485 Jun, [facility] [place] [facility] [address] [id number] [place] [address]- 6471 May, [facility] [place] [facility] [address] [id number] [place] [address]- 7871 May, [facility] [place] [facility] [address] [id number] [place] [address]- 8998 May, [facility] [place] [facility] [address] [id number] [place] [address]- 7249 May, [facility] [place] [facility] [address] [id number] [place] [address]- 3052 Apr, [facility] [place] [facility] [address] [id number] [place] [address]- 5630 Apr, [facility] [place] [facility] [address] [id number] [place] [address]- 8440 Apr, [facility] [place] [facility] [address] [id number] [place] [address]- 6673 Apr, [facility] [place] [facility] [address] [id number] [place] [address]- 9376 Apr, [facility] [place] [facility] [address] [id number] [place] [address]- 3123 Apr, [facility] [place] [facility] [address] [id number] [address]- 1383 Apr, [facility] [place] [facility] [address] [id number] [place] [address]- 4890 Apr, [facility] [place] [facility] [address] [id number] [place] [address]- 2205 Apr, [facility] [place] [facility] [address] [id number] [place] [address]- 1579 Apr, [facility] [place] [facility] [address] [id number] [place] [address]- 7826 Mar, [facility] [address] [facility] [id number] [address]- 6937 Mar, [facility] [address] [facility] [id number] [address]- 7696 Feb, [facility] [address] [facility] [id number] [address]- 5215 Feb, [facility] [address] [facility] [id number], [place] [address]- 0893 Feb, [facility] [address] [facility] [id number], [place] [address]- 9346 Feb, [facility] [address] [place] [id number] [address]- 5276 Jan, [facility] [address] [facility] [id number] [address]- 2537 Jan, IMMUNIZATIONS No Known Immunizations SOCIAL HISTORY Never Assessed REASON FOR VISIT CT order PLAN OF CARE VITAL SIGNS MEDICATIONS Unknown Medications RESULTS Name Result Date Reference Range CT Scan : Chest w/o Contrast 2017-04-14 PROCEDURES No Known procedures INSTRUCTIONS MEDICATIONS ADMINISTERED [...] Hospitalization History psychiatric stay s/p overdose in [place] in 2006 Hospitalization History chest pain and UTI 02/2017
--- OUTSIDE RECORDS SUMMARY | 2017-11-23 18:55 | XMS REPORT ---
Author Author ART RG [facility] Address Unknown Care Team Providers Care Liquid Compounder Name Role Phone ART RG Unavailable PROBLEMS Type Condition ICD9-CM Code EAN69-EH Code Onset Dates Condition Status SNOMED Code Problem Essential hypertension I10 Active 20094313 Problem Recurrent major depressive disorder, in full remission F33.42 Active 945378298 Problem Anxiety F41.9 Active 88730544 Problem Chronic migraine without aura without status migrainosus, not intractable G43.709 Active 857265628 Problem Mixed incontinence urge and stress N39.46 Active 374920538 Problem 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.29 Active 400634973 Problem Proteinuria, unspecified R80.9 Active 29821161 Problem Multinodular goiter E04.2 Active 042821294 Problem Type 2 diabetes mellitus with hyperglycemia, without long-term current use of insulin E11.65 Active 93957968 Problem Chronic obstructive pulmonary disease, unspecified COPD type J44.9 Active 70693804 Problem Morbid obesity due to excess calories E66.01 Active 399682981 Problem CPAP (continuous positive airway pressure) dependence Z99.89 Active 480158553 Problem Obstructive sleep apnea syndrome G47.33 Active 94889414 Problem Lumbago with sciatica, unspecified side M54.40 Active 254516631 Problem Other chronic pain G89.29 Active 59152037 Problem Chronic fatigue R53.82 Active 44037491 Problem Hypercholesterolemia E78.00 Active 01346741 Problem Gastroesophageal reflux disease with esophagitis K21.0 Active 878833080 Problem Bipolar 1 disorder F31.9 Active 067303460 ALLERGIES Substance Reaction Event Type Date Status Penicillin V Potassium Unknown Drug Allergy Dec, Active Iodine Unknown Drug Allergy Dec, Active ENCOUNTERS Encounter Location Date Diagnosis [facility] [address] [facility] [id number] [address] Oct, [facility] [id number] [place] [address] 74524- 0610 Oct, [facility] [id number] [place] [address] 96721- 0313 Sep, Other chronic pain G89.29 [facility] [id number] [place] [address] 83806- 3129 Aug, Other chronic pain G89.29 [facility] [address] 31794- 7349 Aug, Chronic obstructive pulmonary disease, unspecified COPD [...] goiter E04.2 and BMI 40.0-44.9, adult Z68.41 [facility] [id number] [place] [address] 63414- 5004 Aug, [facility] [id number] [place] [address] 46775- 2269 Jul, Type 2 diabetes mellitus with hyperglycemia, without long- term current use of insulin E11.65 [facility] [id number] [place] [address] 13942- 7082 Jul, Type 2 diabetes mellitus with hyperglycemia, without long- term current use of insulin E11.65 [facility] [id number] [place] [address] 26059- 6737 Jul, [facility] [id number] [place] [address] 44526- 5979 Jul, Type 2 diabetes mellitus with hyperglycemia, [...] immunization Z23 and BMI 40.0-44.9, adult Z68.41 [facility] [address] 34539- 3643 Jun, Migraine without status migrainosus, not intractable, unspecified migraine type G43.909 ; Hypercholesterolemia E78.00 and Lumbago with sciatica, unspecified side M54.40 [facility] [address] 71781- 7040 Jun, Recurrent major depressive disorder, in full remission F33.42 and Anxiety F41.9 [place] [address] 85650- 8589 Jun, [facility] [facility] [address] 50253- 1734 May, Hypercholesterolemia E78.00 ; 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.29 ; Migraine without status migrainosus , not intractable, unspecified migraine type G43.909 and Lumbago with sciatica, unspecified side M54.40 [facility] [id number] [place] [address] 10215- 4517 14 May, 2017 Multinodular goiter E04.2 [facility] [address] 11518- 9295 06 May, 2017 [place] [address] 94060- 8266 13 Apr, 2017 Multinodular goiter E04.2 [place] [address] [place] [address] 06 Apr, 2017 Abnormal imaging of thyroid R94.6 ; Hypercholesterolemia E78.00 and 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.29 [facility] [id number] [place] [address] 28700- 1470 29 Mar, 2017 Abnormal imaging of thyroid R94.6 [facility] [id number] [place] [address] 40689- 1194 20 Mar, 2017 Chest wall mass R22.2 [facility] [place] [address] 88282- 7370 07 Mar, 2017 Type 2 diabetes mellitus with hyperglycemia, without long- term current use of insulin E11.65 ; Gastroesophageal reflux disease with esophagitis K21.0 ; Hypercholesterolemia E78.00 ; Proteinuria, unspecified R80.9 ; 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.29 ; Chest wall mass R22.2 and Precordial pain R07.2 [facility] [id number] [place] [address] 12256- 6982 Feb, Recurrent major depressive disorder, in full remission F33.42 [facility] [place] [address] 49528- 0946 Feb, Recurrent major depressive disorder, in full remission F33.42 and Anxiety F41.9 [id number] [place] [address] 38390- 1734 Feb, [facility] [id number] [place] [address] [id number] Jan, Dental examination Z01.20 and Dental caries K02.9 [facility] [id number] [place] [address] 03810- 6849 Dec, [facility] [address] 74627- 5034 Dec, [facility] [id number] [place] [address] 85346- 0262 07 Sandeep, 2017 Type 2 diabetes mellitus with hyperosmolarity without [...] and Stress incontinence ( female) (male) N39.3 [facility] [address] [id number] Dec, Dental caries K02.9 [facility] [address] 71666- 3377 November, [facility] [address] 84642- 8279 November, Essential hypertension I10 ; Other chronic pain G89.29 ; Gastroesophageal reflux disease without esophagitis K21.9 and Anxiety F41.9 [facility] [address] [id number] November, Dental examination Z01.20 [facility] [id number] [place] [address] 48518- 5206 Oct, Recurrent major depressive disorder, in full remission F33.42 [facility] [id number] [place] [address] 43185- 4058 Sep, Other chronic pain G89.29 [facility] [address] 17604- 6670 Sep, Other chronic pain G89.29 and Bipolar 1 disorder F31.9 [facility] [id number] [place] [address] 29717- 9711 Aug, Other chronic pain G89.29 [facility] [address] 07524- 3696 Jul, Gastroesophageal reflux disease without esophagitis K21.9 [facility] [id number] [place] [address] 55815- 6084 Jun, Migraine without status migrainosus, not intractable, unspecified migraine type G43.909 [facility] [id number] [place] [address] 23259- 2136 Jun, Type 2 diabetes mellitus with hyperosmolarity [...] ; Essential hypertension I10 and Hypercholesterolemia E78.00 [place] [address] 01051- 5845 May, [place] [address] 96662- 8880 Apr, Edema, unspecified type R60.9 ; Type [...] Z23 and Stress incontinence (female) (male) N39.3 [facility] [address] 06303- 3182 Apr, [place] [address] 96536- 5004 Mar, Headache above the eye region R51 ; Lumbago with sciatica, unspecified side M54.40 ; Edema, unspecified type R60.9 and Migraine without status migrainosus, not intractable, unspecified migraine type G43.909 [facility] [id number] [place] [address] 33335- 0437 Mar, Chronic obstructive pulmonary disease, unspecified COPD type J44.9 ; Type 2 diabetes mellitus with hyperosmolarity without coma, without long-term current use of insulin E11.00 ; Other chronic pain G89.29 ; Migraine without status migrainosus, not intractable, unspecified migraine type G43.909 ; Left-sided chest wall pain R07.89 and Anxiety about health F41.8 [facility] [id number] [place] [address] 40284- 3546 Mar, [facility] [id number] [place] [address] 46156- 8935 Mar, [facility] [address] 96021- 6552 Mar, [facility] [id number] [place] [address] 32300- 6531 Feb, [facility] [id number] [place] [address] 30968- 8091 Feb, [facility] [id number] [place] [address] 94241- 3219 Feb, Chronic fatigue R53.82 ; Lumbago with sciatica, unspecified side M54.40 ; Gastroesophageal reflux disease with esophagitis K21.0 ; Other chronic pain G89.29 ; Morbid obesity due to excess calories E66.01 ; Migraine without status migrainosus, not intractable, unspecified migraine type G43.909 and Edema, unspecified type R60.9 [facility] [address] [place] [address] [id number] Feb, Dental examination Z01.20 [facility] [id number] [place] [address] 95175- 9200 Feb, [facility] [address] [address] 6156 Feb, Type 2 diabetes mellitus with hyperosmolarity without coma, without long-term current use of insulin E11.00 ; Chronic fatigue R53.82 ; Gastroesophageal reflux disease with esophagitis K21.0 ; Morbid obesity due to excess calories E66.01 ; Lumbago with sciatica, unspecified side M54.40 and Other chronic pain G89.29 [facility] [address] [place] [address] 18045- 8506 Feb, Type 2 diabetes mellitus with hyperosmolarity without coma, without long-term current use of insulin E11.00 ; Chronic fatigue R53.82 ; Gastroesophageal reflux disease with esophagitis K21.0 ; Morbid obesity due to excess calories E66.01 ; Lumbago with sciatica, unspecified side M54.40 and Other chronic pain G89.29 [facility] [address] [place] [address] [id number] Feb, Dental examination Z01.20 [facility] [id number] [place] [address] 95694- 6946 Jan, [facility] [id number] [place] [address] 10372- 5476 Mar, [facility] [address] [place] [address] [id number] Feb, Dental examination V72.2 [facility] [id number] [place] [address] 18008- 1906 Oct, [facility] [address] [place] [address] 24669- 4986 Oct, [facility] [id number] [place] [address] 36281- 6266 Aug, [facility] [address] [place] [address]- 2266 Aug, [facility] [id number] [place] [address] 56989- 2213 Jul, [facility] [place] [facility] [address] [id number] [place] [address]- 3058 Jul, [facility] [place] [facility] [address] [id number] [place] [address]- 8171 Jun, [facility] [place] [facility] [address] [id number] [place] [address]- 9101 Jun, [facility] [place] [facility] [address] [id number] [place] [address]- 3910 Jun, [facility] [place] [facility] [address] [id number] [place] [address]- 1749 Jun, [facility] [place] [facility] [address] [id number] [place] [address]- 1364 Jun, [facility] [place] [facility] [address] [id number] [place] [address]- 1027 Jun, [facility] [place] [facility] [address] [id number] [place] [address]- 4801 Jun, [facility] [place] [facility] [address] [id number] [place] [address]- 5010 Jun, [facility] [place] [facility] [address] [id number] [place] [address]- 0402 Jun, [facility] [place] [facility] [address] [id number] [place] [address]- 2754 Jun, [facility] [place] [facility] [address] [id number] [place] [address]- 3443 Jun, [facility] [place] [facility] [address] [id number] [place] [address]- 1770 Jun, [facility] [place] [facility] [address] [id number] [place] [address]- 5665 Jun, [facility] [place] [facility] [address] [id number] [place] [address]- 9630 May, [facility] [place] [facility] [address] [id number] [place] [address]- 5397 May, [facility] [place] [facility] [address] [id number] [place] [address]- 5978 May, [facility] [place] [facility] [address] [id number] [place] 9801 May, [facility] [place] [facility] [address] [id number] [place] [address]87 Apr, [facility] [place] [facility] [address] [id number] [place] [address]- 9473 Apr, [facility] [place] [facility] [address] [id number] [place] [address]34 Apr, [facility] [place] [facility] [address] [id number] [place] [address]- 3786 Apr, [facility] [place] [facility] [address] [id number] [place] [address]- 1687 Apr, [facility] [place] [facility] [address] [id number] [place] [address]- 0605 Apr, [facility] [place] [facility] [address] [id number] [place] [address]- 2655 Apr, [facility] [place] [facility] [address] [id number] [place] [address]- 4763 Apr, [facility] [place] [facility] [address] [id number] [place] [address]- 7529 Apr, [facility] [place] [facility] [address] [id number] [place] [address]47 Apr, [facility] [place] [facility] [address] [id number] [place] [address]- 4242 16 Mar, 2014 [facility] [place] [facility] [address] [id number] [place] [address]- 3424 16 Mar, 2014 [facility] [place] [facility] [address] [id number] [place] [address]- 3072 Feb, [facility] [address] [facility] [id number] [place] [address]- 3116 Feb, [facility] [address] [facility] [id number] [place] [address]- 4434 Feb, [facility] [address] [facility] [id number] [place] [address]- 1762 Feb, [facility] [address] [facility] [id number] [place] [address]- 8194 Jan, [facility] [address] [facility] [id number] [place] [address]- 1566 Jan, IMMUNIZATIONS No Known Immunizations SOCIAL HISTORY Never Assessed REASON FOR VISIT TE PLAN OF CARE Activity Details Follow Up prn Reason:as needed VITAL SIGNS Blood pressure systolic 136 mmHg 2016-12-18 Blood pressure diastolic 71 mmHg 2016-12-18 MEDICATIONS Medication Instructions Dosage Frequency Start Date End Date Duration Status Atorvastatin Calcium 10 mg Orally Once a day 1 tablet 24h Feb, Active Glucocard Expression Test - In Vitro fasting and 2 hr after 1 meal 3 times weekly. test blood sugar November, Active Oxybutynin Chloride 5 TAKE ONE TABLET BY MOUTH TWICE A DAY 30 Active Sumatriptan Succinate 100 MG Orally Once a day 1 tablet as needed 24h 30 days Active Propranolol HCl 20 mg Orally Twice a day 1 tablet 12h Mar, Active Citalopram Hydrobromide 20 mg Orally Once a day 1 tablet 24h Jun, 30 day(s) Active Metformin HCl 500 MG Orally Twice a day 1 tablet with meals 12h May, Active Gabapentin 300 MG Orally 3 times a day 3 capsules 8h 30 days Active Glucocard Expression Monitor w/Device as directed November, Active Naproxen 500 mg Orally 2 times a day 1 tablet 12h Active Hydrochlorothiazide 50 mg Orally Once a day 1 tablet 24h Mar, Active Tizanidine HCl 2 MG Orally every 8 hrs 1 tablet as needed 8h Active Topamax 50 mg Orally Twice a day 3 tablets 12h Active Omeprazole 20 mg Orally Once a day take 1 capsule (20 mg) by oral route once daily before a meal 24h Feb, 30 days Active Abilify 10 mg Orally Once a day 1 tablet 24h Active RESULTS No Results PROCEDURES Procedure Date Ordered Result Body Site EXTRAC ERUPTED TOOTH/EXPOSED ROOT December 18, 2016 SURG REMOVAL ERUPTED TOOTH December 18, 2016 INSTRUCTIONS MEDICATIONS ADMINISTERED No Known Medications MEDICAL [...]
--- OUTSIDE RECORDS SUMMARY | 2017-11-23 18:56 | XMS REPORT ---
Author Author ASHLEY KEE Organization [facility] [place] [facility] Address [address] [place] [address] Care Team Providers Care Demand Manager Name Role Phone ASHLEY KEE Unavailable PROBLEMS Type Condition ICD9-CM Code [id number] Code Onset Dates Condition Status SNOMED Code Problem Essential hypertension I10 Active 95898971 Problem Recurrent major depressive disorder, in full remission F33.42 Active 916949194 Problem Anxiety F41.9 Active 95440538 Problem Chronic migraine without aura without status migrainosus, not intractable G43.709 Active 717634931 Problem CPAP (continuous positive airway pressure) dependence Z99.89 Active 724435706 Problem Mixed incontinence urge and stress N39.46 Active 942061734 Problem 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 Active 5990377514952562 Problem 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.29 Active 264512926 Problem Proteinuria, unspecified R80.9 Active 89631775 Problem Multinodular goiter E04.2 Active 046373825 Problem Type 2 diabetes mellitus with hyperglycemia, without long-term current use of insulin E11.65 Active 97829522 Problem Chronic obstructive pulmonary disease, unspecified COPD type J44.9 Active 14720227 Problem Morbid obesity due to excess calories E66.01 Active 148192269 Problem Primary osteoarthritis of left knee M17.12 Active 388582036137774 Problem Obstructive sleep apnea syndrome G47.33 Active 18801362 Problem Lumbago with sciatica, unspecified side M54.40 Active 335907011 Problem Other chronic pain G89.29 Active 44251215 Problem Chronic fatigue R53.82 Active 36700049 Problem Hypercholesterolemia E78.00 Active 20322723 Problem Gastroesophageal reflux disease with esophagitis K21.0 Active 238271406 Problem Bipolar 1 disorder F31.9 Active 715580047 ALLERGIES Substance Reaction Event Type Date Status Penicillin V Potassium Unknown Drug Allergy Feb, Active Iodine Unknown Drug Allergy Feb, Active ENCOUNTERS Encounter Location Date Diagnosis [place] [id number] [address] Jan, [place] [address] [place] [id number] [place] [address]64[address] 1300 Oct, [place] [address] [place] [id number] [place] [address] 15343- 5800 Oct, Recurrent major depressive disorder, in full remission F33.42 and Anxiety F41.9 [place] [address] [place] [id number] [place] [address] 24493- 7768 Sep, Other chronic pain G89.29 [place] [address] [place] [id number] [place] [address] 46640- 4456 2017 Other chronic pain G89.29 [place] [address] [place] [id number] [place] [address] 50403- 4053 Aug, Chronic obstructive pulmonary disease, unspecified COPD [...] goiter E04.2 and BMI 40.0-44.9, adult Z68.41 [place] [address] [address] Aug, [place] [address] [place] [id number] [place] [address] 41546- 7333 Jul, Type 2 diabetes mellitus with hyperglycemia, without long- term current use of insulin E11.65 [place] [address] [place] [id number] [place] [address] 35131- 3690 Jul, Type 2 diabetes mellitus with hyperglycemia, without long- term current use of insulin E11.65 [place] [address] [place] [id number] [place] [address] 12929- 0882 Jul, [place] [address] [place] [id number] [place] [address] 74515- 5676 Jul, Type 2 diabetes mellitus with hyperglycemia, [...] immunization Z23 and BMI 40.0-44.9, adult Z68.41 [place] [id number] [place] [address] 97127- 8042 Jun, Migraine without status migrainosus, not intractable, unspecified migraine type G43.909 ; Hypercholesterolemia E78.00 and Lumbago with sciatica, unspecified side M54.40 [place] [id number] [place] [address] 29564- 6826 11 Jun, 2017 Recurrent major depressive disorder, in full remission F33.42 and Anxiety F41.[address] [place] [address] 25586- 9591 Jun, [place] [id number] [place] [address] 30744- 1018 May, Hypercholesterolemia E78.00 ; 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.29 ; Migraine without status migrainosus , not intractable, unspecified migraine type G43.909 and Lumbago with sciatica, unspecified side M54.40 [place] [address] [place] [id number] [place] [address] 13314- 9474 May, Multinodular goiter E04.2 [place] [address] [place] [id number] [place] [address] 27089- 2651 May, [place] [address] [place] [id number] [place] [address] 46452- 3958 Apr, Multinodular goiter E04.2 [place] [address] [address]- [address]30 Apr, Abnormal imaging of thyroid R94.6 ; Hypercholesterolemia E78.00 and 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.29 [place] [address] 6[address]37- [address]38 29 Mar, 2017 Abnormal imaging of thyroid R94.6 [place] [address] [place] [id number] [place] [address] 94247- 6139 20 Mar, 2017 Chest wall mass R22.2 [place] [address] 51997- 2627 07 Mar, 2017 Type 2 diabetes mellitus with hyperglycemia, without long- term current use of insulin E11.65 ; Gastroesophageal reflux disease with esophagitis K21.0 ; Hypercholesterolemia E78.00 ; Proteinuria, unspecified R80.9 ; 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.29 ; Chest wall mass R22.2 and Precordial pain R07.2 [place] [address] [place] [id number] [place] [address] 81734- 1384 Feb, Recurrent major depressive disorder, in full remission F33.42 [place] [address] [place] [id number] [place] [address] 40106- 0980 Feb, Recurrent major depressive disorder, in full remission F33.42 and Anxiety F41.9 [place] [address] [place] [id number] [place] [address] 17362- 4029 Feb, [facility] [id number] [place] [address] [id number] Jan, Dental examination Z01.20 and Dental caries K02.9 [facility] [facility] [address] [address] Dec, [facility] [facility] [id number] [place] [address] 92635- 1701 Dec, [facility] [place] [facility] [address] [id number] [place] [address] 05134- 2624 Dec, Type 2 diabetes mellitus with hyperosmolarity [...] and Stress incontinence ( female) (male) N39.3 [facility] [address] [place] [id number] [place] [address] [id number] Dec, Dental caries K02.9 [facility] [facility] [address] [address] [id number] [place] [address] 84549- 6434 November, [facility] [facility] [address] [place] [id number] [place] [address] 96534- 9033 November, Essential hypertension I10 ; Other chronic pain G89.29 ; Gastroesophageal reflux disease without esophagitis K21.9 and Anxiety F41.9 [facility] [address] [place] [address] [id number] November, Dental examination Z01.20 [facility] [facility] [address] [place] [id number] [place] [address] 11429- 5886 Oct, Recurrent major depressive disorder, in full remission F33.42 [facility] [address] [place] [id number] [place] [address] 70407- 1139 Sep, Other chronic pain G89.29 [facility] [address] [place] [address] 27510- 1273 Sep, Other chronic pain G89.29 and Bipolar 1 disorder F31.9 [place] [address] [place] [id number] [place] [address] 30138- 2648 Aug, Other chronic pain G89.29 [place] [address] [place] [id number] [place] [address] 95932- 2128 Jul, Gastroesophageal reflux disease without esophagitis K21.9 [place] [address] [place] [id number] [place] [address] 70146- 9571 Jun, Migraine without status migrainosus, not intractable, unspecified migraine type G43.909 [place] [address] [place] [id number] [place] [address] 41586- 2123 Jun, Type 2 diabetes mellitus with hyperosmolarity [...] ; Essential hypertension I10 and Hypercholesterolemia E78.00 [place] [address] [place] [address] 89354- 3899 May, [place] [address] [place] [id number] [place] [address] 27319- 7025 Apr, Edema, unspecified type R60.9 ; Type [...] Z23 and Stress incontinence (female) (male) N39.3 [place] [address] [place] [id number] [place] [address] 59955- 4015 Apr, [place] [address] [place] [id number] [place] [address] 94403- 8455 Mar, Headache above the eye region R51 ; Lumbago with sciatica, unspecified side M54.40 ; Edema, unspecified type R60.9 and Migraine without status migrainosus, not intractable, unspecified migraine type G43.909 [place] [address] [place] [id number] [place] [address] 80217- 1361 Mar, Chronic obstructive pulmonary disease, unspecified COPD type J44.9 ; Type 2 diabetes mellitus with hyperosmolarity without coma, without long-term current use of insulin E11.00 ; Other chronic pain G89.29 ; Migraine without status migrainosus, not intractable, unspecified migraine type G43.909 ; Left-sided chest wall pain R07.89 and Anxiety about health F41.8 [place] [address] [place] [id number] [place] [address] 43114- 6541 Mar, [place] [address] [place] [id number] [place] [address] 64120- 5172 Mar, [place] [address] [place] [id number] [place] [address] 98280- 5193 Mar, [place] [address] [place] [id number] [place] [address] 39235- 4658 Feb, [place] [address] [place] [id number] [place] [address] 94174- 2149 Feb, [place] [address] [place] [id number] [place] [address] 06285- 5119 Feb, Chronic fatigue R53.82 ; Lumbago with sciatica, unspecified side M54.40 ; Gastroesophageal reflux disease with esophagitis K21.0 ; Other chronic pain G89.29 ; Morbid obesity due to excess calories E66.01 ; Migraine without status migrainosus, not intractable, unspecified migraine type G43.909 and Edema, unspecified type R60.9 [facility] [address] [place] [id number] [place] [address] [id number] Feb, Dental examination Z01.20 [facility] [facility] [address] [place] [id number] [place] [address] 92654- 0797 Feb, [facility] [facility] [address] [place] [id number] [place] [address] 44268- 8913 Feb, Type 2 diabetes mellitus with hyperosmolarity without coma, without long-term current use of insulin E11.00 ; Chronic fatigue R53.82 ; Gastroesophageal reflux disease with esophagitis K21.0 ; Morbid obesity due to excess calories E66.01 ; Lumbago with sciatica, unspecified side M54.40 and Other chronic pain G89.29 [facility] [address] [place] [id number] [place] [address] 82184- 3495 Feb, Type 2 diabetes mellitus with hyperosmolarity without coma, without long-term current use of insulin E11.00 ; Chronic fatigue R53.82 ; Gastroesophageal reflux disease with esophagitis K21.0 ; Morbid obesity due to excess calories E66.01 ; Lumbago with sciatica, unspecified side M54.40 and Other chronic pain G89.29 [facility] [address] [place] [address] [id number] [place] [address] [id number] Feb, Dental examination Z01.20 [facility] [address] [place] [id number] [place] [address] 67767- 6414 Jan, [facility] [facility] [address] [place] [id number] [place] [address] 91229- 5223 Mar, [facility] [address] [address] [id number] [place] [address] [id number] Feb, Dental examination V72.2 [facility] [address] [place] [id number] [place] [address] 52502- 6409 Oct, [facility] [address] [place] [id number] [place] [address] 69706- 4387 Oct, [facility] [address] [id number] [place] [address]- 4926 Aug, [facility] [place] [facility] [address] [id number] [place] [address] Aug, [facility] [place] [facility] [address] [id number] [place] [address]- 6390 Jul, [facility] [place] [facility] [address] [id number] [place] [address]- 1828 Jul, [facility] [place] [facility] [address] [id number] [place] [address]- 3924 Jun, [facility] [place] [facility] [address] [id number] [place] [address]- 1712 Jun, [facility] [place] [facility] [address] [id number] [place] [address]- 6284 Jun, [facility] [place] [facility] [address] [id number] [place] [address]- 1603 Jun, [facility] [place] [facility] [address] [id number] [place] [address]- 1573 Jun, [facility] [place] [facility] [address] [id number] [place] [address]- 2365 Jun, [facility] [place] [facility] [address] [id number] [place] [address]- 1976 Jun, [facility] [place] [facility] [address] [id number] [place] [address]- 6348 Jun, [facility] [place] [facility] [address] [id number] [place] [address]- 3477 Jun, [facility] [place] [facility] [address] [id number] [place] [address]- 0159 Jun, [facility] [place] [facility] [address] [id number] [place] [address]- 3338 Jun, [facility] [place] [facility] [address] [id number] [place] [address]- 0654 Jun, [facility] [place] [facility] [address] [id number] [place] [address]- 5469 Jun, [facility] [place] [facility] [address] [id number] [place] [address]- 2047 May, [facility] [place] [facility] [address] [id number] [place] [address]- 0085 May, [facility] [place] [facility] [address] [id number] [place] [address]- 8366 May, [facility] [place] [facility] [address] [id number] [place] [address]- 2950 May, [facility] [place] [facility] [address] [id number] [place] [address]- 7707 Apr, [facility] [place] [facility] [address] [id number] [place] [address]- 9400 Apr, [facility] [place] [facility] [address] [id number] [place] [address]- 0345 Apr, [facility] [place] [facility] [address] [id number] [place] [address]- 9609 Apr, [facility] [place] [facility] [address] [id number] [place] [address]- 3417 Apr, [facility] [place] [facility] [address] [id number] [place] [address]- 1191 Apr, [facility] [place] [facility] [address] [id number] [place] 6096 Apr, [facility] [place] [facility] [address] [id number] [place] [address]- 8670 Apr, [facility] [place] [facility] [address] [id number] [place] [address]- 1179 Apr, [facility] [place] [facility] [address] [id number] [place] [address]- 4835 Apr, [facility] [place] [facility] [address] [facility] [id number] [address]- 0058 Mar, [facility] [place] [facility] [address] [facility] [id number] [address]- 9180 Mar, [facility] [place] [facility] [address] [place] [id number] [address]- 9824 Feb, [facility] [place] [facility] [address] [facility] [id number] [place] [address]- 3198 Feb, [facility] [place] [facility] [address] [facility] [id number] [place] [address]- 5959 Feb, [facility] [place] [facility] [address] [address]- 1222 Feb, [facility] [place] [facility] [address] [address]- 2437 Jan, [facility] [place] [facility] [address] [place] [id number] [address]- 7041 Jan, IMMUNIZATIONS No Known Immunizations SOCIAL HISTORY Never Assessed REASON FOR VISIT intake Lacy PLAN OF CARE Activity Details Follow Up 3 Months Reason:DM Education VITAL SIGNS Height 68 in 2017-03-10 Weight 285.4 lbs 2017-03-10 Heart Rate 88 bpm 2017-03-10 Respiratory Rate 18 2017-03-10 BMI 43.39 kg/m2 2017-03-10 Blood pressure systolic 128 mmHg 2017-03-10 Blood pressure diastolic 86 mmHg 2017-03-10 MEDICATIONS Medication Instructions Dosage Frequency Start Date End Date Duration Status Omeprazole 20 mg Orally Once a day take 1 capsule (20 mg) by oral route once daily before a meal 24h Feb, 30 days Active Glucocard Expression Monitor w/Device as directed November, Active Abilify 10 mg Orally Once a day 1 tablet 24h Active Topamax 50 mg Orally Twice a day 3 tablets 12h Active Oxybutynin Chloride 5 MG TAKE ONE TABLET BY MOUTH TWICE DAILY 30 Active Atorvastatin Calcium 10 mg Orally Once a day 1 tablet 24h Feb, Active Glucocard Expression Test - In Vitro fasting and 2 hr after 1 meal 3 times weekly. test blood sugar November, Active Propranolol HCl 20 MG TAKE ONE TABLET BY MOUTH TWICE DAILY 30 Active Metformin HCl 500 MG Orally Twice a day 1 tablet with meals 12h May, Active Sumatriptan Succinate 100 mg Orally Once a day 1 tablet as needed 24h 30 days Active RESULTS No Results PROCEDURES Procedure Date Ordered Result Body Site [facility] VISIT ESTABLISHED PATIENT Mar 10, 2017 INSTRUCTIONS MEDICATIONS ADMINISTERED No Known Medications [...] Hospitalization History psychiatric stay s/p overdose in [place] in 2006 Hospitalization History chest pain and UTI 02/2017
--- OUTSIDE RECORDS SUMMARY | 2017-11-23 18:57 | XMS REPORT ---
Author Author AGUSTÍN Degroot Organization [facility] Address [address] [place] [address] Care Team Providers Care Fisher Lampara Net Name Role Phone AGUSTÍN Degroot Unavailable PROBLEMS Type Condition ICD9-CM Code ZGJ42-TN Code Onset Dates Condition Status SNOMED Code Problem Essential hypertension I10 Active 05072082 Problem Recurrent major depressive disorder, in full remission F33.42 Active 269036929 Problem Anxiety F41.9 Active 81916365 Problem Chronic migraine without aura without status migrainosus, not intractable G43.709 Active 492705036 Problem Mixed incontinence urge and stress N39.46 Active 161841681 Problem 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.29 Active 960406805 Problem Proteinuria, unspecified R80.9 Active 84666316 Problem Multinodular goiter E04.2 Active 893286897 Problem Type 2 diabetes mellitus with hyperglycemia, without long-term current use of insulin E11.65 Active 82535711 Problem Chronic obstructive pulmonary disease, unspecified COPD type J44.9 Active 05854470 Problem Morbid obesity due to excess calories E66.01 Active 647996723 Problem CPAP (continuous positive airway pressure) dependence Z99.89 Active 459797982 Problem Obstructive sleep apnea syndrome G47.33 Active 80615929 Problem Lumbago with sciatica, unspecified side M54.40 Active 081296383 Problem Other chronic pain G89.29 Active 77316282 Problem Chronic fatigue R53.82 Active 06659653 Problem Hypercholesterolemia E78.00 Active 08431420 Problem Gastroesophageal reflux disease with esophagitis K21.0 Active 801814259 Problem Bipolar 1 disorder F31.9 Active 031748965 ALLERGIES Substance Reaction Event Type Date Status Penicillin V Potassium Unknown Drug Allergy Dec, Active Iodine Unknown Drug Allergy Dec, Active ENCOUNTERS Encounter Location Date Diagnosis [facility] [address] [facility] [id number] [address] Oct, [place] [id number] [place] [address] 15107- 4349 Sep, [place] [id number] [place] [address] 99236- 3345 Sep, Other chronic pain G89.29 [place] [id number] [place] [address] 42435- 8267 Aug, Other chronic pain G89.29 [place] [id number] [place] [address] 71364- 2999 Aug, Chronic obstructive pulmonary disease, unspecified COPD [...] goiter E04.2 and BMI 40.0-44.9, adult Z68.41 [place] [id number] [place] [address] 72279- 3487 Aug, [place] [id number] [place] [address] 23793- 3685 Jul, Type 2 diabetes mellitus with hyperglycemia, without long- term current use of insulin E11.65 [place] [id number] [place] [address] 77327- 9812 Jul, Type 2 diabetes mellitus with hyperglycemia, without long- term current use of insulin E11.65 [place] [id number] [place] [address] 96658- 9498 Jul, [place] [address] [address]21- 3747 Jul, Type 2 diabetes mellitus with hyperglycemia, [...] immunization Z23 and BMI 40.0-44.9, adult Z68.[address] [address]- [address] Jun, Migraine without status migrainosus, not intractable, unspecified migraine type G43.909 ; Hypercholesterolemia E78.00 and Lumbago with sciatica, unspecified side M54.40 [place] [address] 89733- 2364 Jun, Recurrent major depressive disorder, in full remission F33.42 and Anxiety F41.9 [place] [address] 67099- 9268 Jun, [place] [address] 80374- 8905 May, Hypercholesterolemia E78.00 ; 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.29 ; Migraine without status migrainosus , not intractable, unspecified migraine type G43.909 and Lumbago with sciatica, unspecified side M54.40 [place] [address] 74761- 1005 14 May, 2017 Multinodular goiter E04.2 [place] [address] 22156- 7023 06 May, 2017 [place] [address] 69113- 0307 Apr, Multinodular goiter E04.2 [place] [id number] [place] [address] 45035- 1715 Apr, Abnormal imaging of thyroid R94.6 ; Hypercholesterolemia E78.00 and 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.29 [place] [id number] [place] [address] 95382- 3153 29 Mar, 2017 Abnormal imaging of thyroid R94.6 [place] [id number] [place] [address] 09353- 2983 20 Mar, 2017 Chest wall mass R22.2 [place] [address] 16757- 9153 07 Mar, 2017 Type 2 diabetes mellitus with hyperglycemia, without long- term current use of insulin E11.65 ; Gastroesophageal reflux disease with esophagitis K21.0 ; Hypercholesterolemia E78.00 ; Proteinuria, unspecified R80.9 ; 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.29 ; Chest wall mass R22.2 and Precordial pain R07.2 [place] [id number] [place] [address] 36064- 9793 Feb, Recurrent major depressive disorder, in full remission F33.42 [place] [id number] [place] [address] 46532- 8972 Feb, Recurrent major depressive disorder, in full remission F33.42 and Anxiety F41.9 [place] [id number] [place] [address] 55571- 2944 Feb, [facility] [id number] [place] [address] [phone] Jan, Dental examination Z01.20 and Dental caries K02.9 [place] [id number] [place] [address] 13004- 1241 Dec, [place] [id number] [place] [address] 49215- 6419 Dec, [place] [address] [place] [address] 7601 Dec, Type 2 diabetes mellitus with hyperosmolarity [...] and Stress incontinence ( female) (male) N39.3 [facility] [id number] [place] [address] [phone] Dec, Dental caries K02.9 [facility] [id number] [place] [address] 68280- 9484 November, [facility] [address] 92119- 2800 November, Essential hypertension I10 ; Other chronic pain G89.29 ; Gastroesophageal reflux disease without esophagitis K21.9 and Anxiety F41.9 [facility] [id number] [place] [address] [phone] November, Dental examination Z01.20 [facility] [id number] [place] [address] 73045- 7731 Oct, Recurrent major depressive disorder, in full remission F33.42 [facility] [id number] [place] [address] 45325- 3277 Sep, Other chronic pain G89.29 [facility] [address] 90280- 8471 Sep, Other chronic pain G89.29 and Bipolar 1 disorder F31.9 [facility] [id number] [place] [address] 32525- 3904 Aug, Other chronic pain G89.29 [place] [address] [place] [address] 44934- 1816 Jul, Gastroesophageal reflux disease without esophagitis K21.9 [place] [id number] [place] [address] 45185- 6854 Jun, Migraine without status migrainosus, not intractable, unspecified migraine type G43.909 [place] [id number] [place] [address] 57650- 8524 Jun, Type 2 diabetes mellitus with hyperosmolarity [...] ; Essential hypertension I10 and Hypercholesterolemia E78.00 [place] [id number] [place] [address] 41565- 7266 May, [place] [id number] [place] [address] 63585- 8269 Apr, Edema, unspecified type R60.9 ; Type [...] Z23 and Stress incontinence (female) (male) N39.3 [place] [address] [place] [address] 06286- 7649 Apr, [place] [id number] [place] [address] 28651- 1748 Mar, Headache above the eye region R51 ; Lumbago with sciatica, unspecified side M54.40 ; Edema, unspecified type R60.9 and Migraine without status migrainosus, not intractable, unspecified migraine type G43.909 [facility] [id number] [place] [address] 10144- 3342 Mar, Chronic obstructive pulmonary disease, unspecified COPD type J44.9 ; Type 2 diabetes mellitus with hyperosmolarity without coma, without long-term current use of insulin E11.00 ; Other chronic pain G89.29 ; Migraine without status migrainosus, not intractable, unspecified migraine type G43.909 ; Left-sided chest wall pain R07.89 and Anxiety about health F41.8 [facility] [id number] [place] [address] 91694- 6763 Mar, [facility] [address] 43729- 6753 Mar, [facility] [id number] [place] [address] 78446- 3133 Mar, [facility] [address] 41295- 9960 Feb, [facility] [id number] [place] [address] 71927- 1003 Feb, [facility] [address] 72183- 1344 Feb, Chronic fatigue R53.82 ; Lumbago with sciatica, unspecified side M54.40 ; Gastroesophageal reflux disease with esophagitis K21.0 ; Other chronic pain G89.29 ; Morbid obesity due to excess calories E66.01 ; Migraine without status migrainosus, not intractable, unspecified migraine type G43.909 and Edema, unspecified type R60.9 [facility] [address] [place] [address] [phone] 10 Feb, 2016 Dental examination Z01.20 [facility] [address] [address] Feb, [facility] [id number] [place] [address] 95646- 6752 Feb, Type 2 diabetes mellitus with hyperosmolarity without coma, without long-term current use of insulin E11.00 ; Chronic fatigue R53.82 ; Gastroesophageal reflux disease with esophagitis K21.0 ; Morbid obesity due to excess calories E66.01 ; Lumbago with sciatica, unspecified side M54.40 and Other chronic pain G89.29 [facility] [address] [place] [address] 50922- 6580 Feb, Type 2 diabetes mellitus with hyperosmolarity without coma, without long-term current use of insulin E11.00 ; Chronic fatigue R53.82 ; Gastroesophageal reflux disease with esophagitis K21.0 ; Morbid obesity due to excess calories E66.01 ; Lumbago with sciatica, unspecified side M54.40 and Other chronic pain G89.29 [facility] [id number] [place] [address] [id number] Feb, Dental examination Z01.20 [place] [id number] [place] [address] 34016- 7954 Jan, [facility] [id number] [place] [address] 61913- 6926 Mar, [facility] [address] [place] [address] [phone] Feb, Dental examination V72.2 [facility] [id number] [place] [address] [id number]- 7186 Oct, [facility] [id number] [place] [address] 324613- 3120 Oct, [facility] [id number] [place] [address] 630118- 6206 Aug, [facility] [id number] [place] [address] 176387- 9506 Aug, [facility] [place] [facility] [address] [id number] [place] [address]- 1127 Jul, [facility] [place] [facility] [address] [id number] [place] [address]- 4489 Jul, [facility] [place] [facility] [address] [id number] [place] [address]- 1276 Jun, [facility] [place] [facility] [address] [id number] [place] [address]- 2196 Jun, [facility] [place] [facility] [address] [id number] [place] [address]- 6119 Jun, [facility] [place] [facility] [address] [id number] [place] [address]- 4653 Jun, [facility] [place] [facility] [address] [id number] [place] [address]- 7437 Jun, [facility] [place] [facility] [address] [id number] [place] [address]- 1864 Jun, [facility] [place] [facility] [address] [id number] [place] [address]- 4014 Jun, [facility] [place] [facility] [address] [id number] [place] [address]- 6196 Jun, [facility] [place] [facility] [address] [id number] [place] [address]- 4382 Jun, [facility] [place] [facility] [address] [id number] [place] [address]- 3687 Jun, [facility] [place] [facility] [address] [id number] [place] [address]- 8132 Jun, [facility] [place] [facility] [address] [id number] [place] [address]- 0683 Jun, [facility] [place] [facility] [address] [id number] [place] 7619 Jun, [facility] [place] [facility] [address] [id number] [place] [address]- 3590 May, [facility] [place] [facility] [address] [id number] [place] 0620 May, [facility] [place] [facility] [address] [id number] [place] [address]- 3416 May, [facility] [place] [facility] [address] [id number] [place] [address]- 8178 May, [facility] [place] [facility] [address] [id number] [place] [address]- 9608 Apr, [facility] [place] [facility] [address] [id number] [place] [address]- 1282 Apr, [facility] [place] [facility] [address] [id number] [place] [address]- 3774 Apr, [facility] [place] [facility] [address] [id number] [place] [address]- 9693 Apr, [facility] [place] [facility] [address] [id number] [place] [address]- 6078 Apr, [facility] [place] [facility] [address] [id number] [place] [address]- 6323 Apr, [facility] [place] [facility] [address] [id number] [place] [address]- 7704 Apr, [facility] [place] [facility] [address] [id number] [place] [address]- 1656 Apr, [facility] [place] [facility] [address] [id number] [place] [address]- 2489 Apr, [facility] [place] [facility] [address] [id number] [place] [address]- 5093 Apr, [facility] [place] [facility] [address] [id number] [place] [address]- 5621 16 Mar, 2014 [facility] [place] [facility] [address] [id number] [place] [address]- 6382 16 Mar, 2014 [facility] [place] [facility] [address] [facility] [id number] [place] [address] 1192 Feb, [facility] [address] [facility] [id number] [place] 4432 Feb, [facility] [address] [facility] [id number] [place] 8154 Feb, [facility] [address] [facility] [id number] [place] 5800 Feb, [facility] [address] [facility] [id number] [place]- 0106 Jan, [facility] [address] [facility] [id number] [place] [address]- 9441 Jan, IMMUNIZATIONS No Known Immunizations SOCIAL HISTORY Never Assessed REASON FOR VISIT Diabetes follow up. Left great toe has a spot that is sore x 2 months. 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 Brewster PLAN OF CARE Activity Details Follow Up 3 Months Reason:dm htn VITAL SIGNS Height 68 in 2016-12-23 Weight 288 lbs 2016-12-23 Temperature 98.9 degrees Fahrenheit 2016-12-23 Heart Rate 80 bpm 2016-12-23 Respiratory Rate 20 2016-12-23 BMI 43.79 kg/m2 2016-12-23 Blood pressure systolic 130 mmHg 2016-12-23 Blood pressure diastolic 88 mmHg 2016-12-23 MEDICATIONS Medication Instructions Dosage Frequency Start Date End Date Duration Status Glucocard Expression Monitor w/Device as directed November, Active Tizanidine HCl 2 MG Orally every 8 hrs 1 tablet as needed 8h Active Propranolol HCl 20 mg Orally Twice a day 1 tablet 12h Mar, Active Topamax 50 mg Orally Twice a day 3 tablets 12h Active Naproxen 500 mg Orally 2 times a day 1 tablet 12h Active Metformin HCl 500 MG Orally Twice a day 1 tablet with meals 12h May, Active Citalopram Hydrobromide 20 mg Orally Once a day 1 tablet 24h Jun, 30 day(s) Active Sumatriptan Succinate 100 mg Orally Once a day 1 tablet as needed 24h 30 days Active Omeprazole 20 mg Orally Once a day take 1 capsule (20 mg) by oral route once daily before a meal 24h Feb, 30 days Active Gabapentin 300 MG Orally 3 times a day 3 capsules 8h 30 days Active Oxybutynin Chloride 5 mg TAKE ONE TABLET BY MOUTH TWICE A DAY 30 Active Abilify 10 mg Orally Once a day 1 tablet 24h Active Atorvastatin Calcium 10 mg Orally Once a day 1 tablet 24h Feb, Active Glucocard Expression Test - In Vitro fasting and 2 hr after 1 meal 3 times weekly. test blood sugar November, Active RESULTS Name Result Date Reference Range A1C (IN HOUSE) 2016-12-23 A1C IN HOUSE 6.2 4.3 - 5.6 % Previous A1c 5.9 Lot [id number] Exp date 09/2018 MICROALBUMIN, URINE (IN HOUSE) 2016-12-23 MICROALBUMIN HIGH ABNORMAL Lot # [id number] Exp date 16 Dec 2017 Clarity clear Color pink ALB 80 CRE 50 A:C (IN HOUSE) >300 Control normal Control abnormal Lot # [id number] Exp date Feb 2017 CBC 2016-12-23 WBC 10.4 3.4-10.8 RBC 5.54 3.77-5.28 Hemoglobin 14.7 11.1-15.9 Hematocrit 44.9 34.0-46.6 MCV 81 79-97 MCH 26.5 26.6-33.0 MCHC 32.7 31.5-35.7 RDW 15.3 12.3-15.4 Platelets 333 150-379 Neutrophils 60 Lymphs 32 Monocytes 6 Eos 1 Basos 1 Immature Cells Neutrophils (Absolute) 6.4 1.4-7.0 Lymphs (Absolute) 3.3 0.7-3.1 Monocytes(Absolute) 0.6 0.1-0.9 Eos (Absolute) 0.1 0.0-0.4 Baso (Absolute) 0.1 0.0-0.2 Immature Granulocytes 0 Immature Grans (Abs) 0.0 0.0-0.1 NRBC Hematology Comments: MICROALBUMIN/CREATININE RATIO, URINE 2016-12-23 Creatinine, Urine 18.5 Not Estab. Microalbumin, Urine 18.9 Not Estab. Microalb/Creat Ratio 102.2 0.0-30.0 LIPID PANEL 2016-12-23 Cholesterol, Total 240 100-199 Triglycerides 183 0-149 HDL Cholesterol 51 >39 VLDL Cholesterol Juvenal 37 5-40 LDL Cholesterol Calc 152 0-99 Comment: CMP 2016-12-23 Glucose, Serum 74 65-99 BUN 15 6-24 Creatinine, Serum 0.75 0.57-1.00 eGFR If NonAfricn Am 97 >59 eGFR If Africn Am 112 >59 BUN/Creatinine Ratio 20 9-23 Sodium, Serum 138 134-144 Potassium, Serum 4.5 3.5-5.2 Chloride, Serum 99 96-106 Carbon Dioxide, Total 23 18-29 Calcium, Serum 10.0 8.7-10.2 Protein, Total, Serum 7.1 6.0-8.5 Albumin, Serum 4.1 3.5-5.5 Globulin, Total 3.0 1.5-4.5 A/G Ratio 1.4 1.2-2.2 Bilirubin, Total <0.2 0.0-1.2 Alkaline Phosphatase, S 100 39-117 AST (SGOT) 9 0-40 ALT (SGPT) 16 0-32 PROCEDURES Procedure Date Ordered Result Body Site GLYCATED HEMOGLOBIN TEST December 23, 2016 [facility] VISIT ESTABLISHED PATIENT December 23, 2016 MICROALBUMIN, SEMIQUANT December 23, 2016 VENIPUNCT, ROUTINE* December 23, 2016 LAB NOT BILLED BY [facility] December 23, 2016 INSTRUCTIONS MEDICATIONS ADMINISTERED No Known Medications [...] Hospitalization History psychiatric stay s/p overdose in [place] in 2006 Hospitalization History chest pain and UTI 02/2017
--- OUTSIDE RECORDS SUMMARY | 2017-11-23 18:58 | XMS REPORT ---
Author Author AGUSTÍN Degroot [facility] Address [address] [place] [address] Care Team Providers Care Child Nutrition Manager Name Role Phone AGUSTÍN Degroot Unavailable PROBLEMS Type Condition ICD9-CM Code PWQ89-MN Code Onset Dates Condition Status SNOMED Code Problem Essential hypertension I10 Active 73650248 Problem Recurrent major depressive disorder, in full remission F33.42 Active 283078295 Problem Anxiety F41.9 Active 85516292 Problem Chronic migraine without aura without status migrainosus, not intractable G43.709 Active 685118774 Problem Mixed incontinence urge and stress N39.46 Active 603637199 Problem 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.29 Active 115658766 Problem Proteinuria, unspecified R80.9 Active 01128039 Problem Multinodular goiter E04.2 Active 365500240 Problem Type 2 diabetes mellitus with hyperglycemia, without long-term current use of insulin E11.65 Active 54629428 Problem Chronic obstructive pulmonary disease, unspecified COPD type J44.9 Active 96472246 Problem Morbid obesity due to excess calories E66.01 Active 407352891 Problem CPAP (continuous positive airway pressure) dependence Z99.89 Active 188315442 Problem Obstructive sleep apnea syndrome G47.33 Active 44774382 Problem Lumbago with sciatica, unspecified side M54.40 Active 621553429 Problem Other chronic pain G89.29 Active 06555736 Problem Chronic fatigue R53.82 Active 33832369 Problem Hypercholesterolemia E78.00 Active 93206020 Problem Gastroesophageal reflux disease with esophagitis K21.0 Active 157720547 Problem Bipolar 1 disorder F31.9 Active 875420290 ALLERGIES No Information ENCOUNTERS Encounter Location Date Diagnosis [facility] [address] [facility] [id number] [address] Oct, [facility] [id number] [place] [address] 74664- 3946 Oct, [place] [id number] [place] [address] 24441- 6347 Sep, Other chronic pain G89.29 [place] [id number] [place] [address] 47488- 1381 Aug, Other chronic pain G89.29 [place] [address] [address]- [address]267 Aug, Chronic obstructive pulmonary disease, unspecified COPD [...] goiter E04.2 and BMI 40.0-44.9, adult Z68.41 [place] [id number] [place] [address] 56925- 9159 Aug, [place] [id number] [place] [address] 88076- 0372 Jul, Type 2 diabetes mellitus with hyperglycemia, without long- term current use of insulin E11.65 [place] [id number] [place] [address] 24482- 9318 Jul, Type 2 diabetes mellitus with hyperglycemia, without long- term current use of insulin E11.65 [place] [id number] [place] [address] 75390- 2934 Jul, [place] [id number] [place] [address] 19838- 7385 Jul, Type 2 diabetes mellitus with hyperglycemia, [...] immunization Z23 and BMI 40.0-44.9, adult Z68.41 [place] [address] 17507- 2139 Jun, Migraine without status migrainosus, not intractable, unspecified migraine type G43.909 ; Hypercholesterolemia E78.00 and Lumbago with sciatica, unspecified side M54.40 [place] [address] 54291- 6531 Jun, Recurrent major depressive disorder, in full remission F33.42 and Anxiety F41.9 [place] [address] 10197- 2064 Jun, [place] [address] 10310- 1205 May, Hypercholesterolemia E78.00 ; 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.29 ; Migraine without status migrainosus , not intractable, unspecified migraine type G43.909 and Lumbago with sciatica, unspecified side M54.40 [place] [id number] [place] [address] 58507- 2096 14 May, 2017 Multinodular goiter E04.2 [place] [address] 32495- 2815 06 May, 2017 [place] [address] 72036- 2254 13 Apr, 2017 Multinodular goiter E04.2 [place] [address] [place] [address] 2317 Apr, Abnormal imaging of thyroid R94.6 ; Hypercholesterolemia E78.00 and 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.29 [place] [id number] [place] [address] 29013- 2948 29 Mar, 2017 Abnormal imaging of thyroid R94.6 [place] [id number] [place] [address] 49819- 5556 Mar, Chest wall mass R22.2 [place] [id number] [place] [address] 61538- 6467 07 Mar, 2017 Type 2 diabetes mellitus with hyperglycemia, without long- term current use of insulin E11.65 ; Gastroesophageal reflux disease with esophagitis K21.0 ; Hypercholesterolemia E78.00 ; Proteinuria, unspecified R80.9 ; 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.29 ; Chest wall mass R22.2 and Precordial pain R07.2 [place] [id number] [place] [address] 59176- 5398 Feb, Recurrent major depressive disorder, in full remission F33.42 [place] [address] 42633- 8044 Feb, Recurrent major depressive disorder, in full remission F33.42 and Anxiety F41.9 [place] [id number] [place] [address] 84687- 1333 Feb, [facility] [id number] [place] [address] [id number] Jan, Dental examination Z01.20 and Dental caries K02.9 [place] [id number] [place] [address] 96689- 3373 Dec, [place] [address] 98177- 6695 Dec, [facility] [id number] [place] [address] 38217- 7282 Dec, Type 2 diabetes mellitus with hyperosmolarity [...] and Stress incontinence ( female) (male) N39.3 [facility] [address] [id number] Dec, Dental caries K02.9 [facility] [address] 6[address]01- 2662 November, [facility] [address] 74074- 9805 November, Essential hypertension I10 ; Other chronic pain G89.29 ; Gastroesophageal reflux disease without esophagitis K21.9 and Anxiety F41.9 [facility] [id number] [place] [address] [id number] November, Dental examination Z01.20 [facility] [id number] [place] [address] 14386- 7049 Oct, Recurrent major depressive disorder, in full remission F33.42 [facility] [id number] [place] [address] 11183- 3505 Sep, Other chronic pain G89.29 [facility] [address] 31027- 5787 Sep, Other chronic pain G89.29 and Bipolar 1 disorder F31.9 [facility] [id number] [place] [address] 59640- 5626 Aug, Other chronic pain G89.29 [facility] [address] 12145- 4193 Jul, Gastroesophageal reflux disease without esophagitis K21.9 [place] [id number] [place] [address] 62249- 5544 Jun, Migraine without status migrainosus, not intractable, unspecified migraine type G43.909 [place] [id number] [place] [address] 65134- 1419 Jun, Type 2 diabetes mellitus with hyperosmolarity [...] ; Essential hypertension I10 and Hypercholesterolemia E78.00 [place] [address] 05200- 7141 May, [place] [address] 29306- 9441 Apr, Edema, unspecified type R60.9 ; Type [...] Z23 and Stress incontinence (female) (male) N39.3 [place] [id number] [place] [address] 35496- 3123 Apr, [place] [id number] [place] [address] 68803- 0677 Mar, Headache above the eye region R51 ; Lumbago with sciatica, unspecified side M54.40 ; Edema, unspecified type R60.9 and Migraine without status migrainosus, not intractable, unspecified migraine type G43.909 [facility] [id number] [place] [address] 30440- 2909 Mar, Chronic obstructive pulmonary disease, unspecified COPD type J44.9 ; Type 2 diabetes mellitus with hyperosmolarity without coma, without long-term current use of insulin E11.00 ; Other chronic pain G89.29 ; Migraine without status migrainosus, not intractable, unspecified migraine type G43.909 ; Left-sided chest wall pain R07.89 and Anxiety about health F41.8 [facility] [id number] [place] [address] 46462- 4552 Mar, [facility] [id number] [place] [address] 67200- 6878 Mar, [facility] [id number] [place] [address] 15932- 7602 Mar, [facility] [id number] [place] [address] 76754- 1503 Feb, [facility] [address] 47793- 1648 Feb, [facility] [id number] [place] [address] 39215- 6720 Feb, Chronic fatigue R53.82 ; Lumbago with sciatica, unspecified side M54.40 ; Gastroesophageal reflux disease with esophagitis K21.0 ; Other chronic pain G89.29 ; Morbid obesity due to excess calories E66.01 ; Migraine without status migrainosus, not intractable, unspecified migraine type G43.909 and Edema, unspecified type R60.9 [facility] [address] [place] [address] [id number] Feb, Dental examination Z01.20 [facility] [id number] [place] [address] 23698- 9301 Feb, [facility] [address] [address] 2546 Feb, Type 2 diabetes mellitus with hyperosmolarity without coma, without long-term current use of insulin E11.00 ; Chronic fatigue R53.82 ; Gastroesophageal reflux disease with esophagitis K21.0 ; Morbid obesity due to excess calories E66.01 ; Lumbago with sciatica, unspecified side M54.40 and Other chronic pain G89.29 [facility] [address] [place] [address] 55459- 3576 Feb, Type 2 diabetes mellitus with hyperosmolarity without coma, without long-term current use of insulin E11.00 ; Chronic fatigue R53.82 ; Gastroesophageal reflux disease with esophagitis K21.0 ; Morbid obesity due to excess calories E66.01 ; Lumbago with sciatica, unspecified side M54.40 and Other chronic pain G89.29 [facility] [address] [place] [address] [id number] Feb, Dental examination Z01.20 [facility] [address] [place] [address] 50150- 1896 Jan, [facility] [id number] [place] [address] 75630- 0026 Mar, [facility] [address] [place] [address] [id number] Feb, Dental examination V72.2 [facility] [id number] [place] [address] 29145- 6506 Oct, [facility] [address] [address] 2546 Oct, [facility] [id number] [place] [address] 14103- 0486 Aug, [facility] [address] [id number] [address] 2546 Aug, [facility] [address] [place] [address] 36638- 1846 Jul, [facility] [place] [facility] [address] [id number] [place] [address]- 6922 Jul, [facility] [place] [facility] [address] [id number] [place] [address]- 1516 Jun, [facility] [place] [facility] [address] [id number] [place] [address]- 3837 Jun, [facility] [place] [facility] [address] [id number] [place] [address]- 3963 Jun, [facility] [place] [facility] [address] [id number] [place] [address]- 4766 Jun, [facility] [place] [facility] [address] [id number] [place] [address]- 8785 Jun, [facility] [place] [facility] [address] [id number] [place] [address]- 8175 Jun, [facility] [place] [facility] [address] [id number] [place] [address]- 3737 Jun, [facility] [place] [facility] [address] [id number] [place] [address]- 5975 Jun, [facility] [place] [facility] [address] [id number] [place] [address]- 9894 Jun, [facility] [place] [facility] [address] [id number] [place] [address]- 5269 Jun, [facility] [place] [facility] [address] [id number] [place] [address]- 3409 Jun, [facility] [place] [facility] [address] [id number] [place] [address]- 2229 Jun, [facility] [place] [facility] [address] [id number] [place] [address]- 3066 Jun, [facility] [place] [facility] [address] [id number] [place] [address]- 8511 May, [facility] [place] [facility] [address] [id number] [place] [address]- 2972 May, [facility] [place] [facility] [address] [id number] [place] [address]- 2674 May, [facility] [place] [facility] [address] [id number] [place] 3814 May, [facility] [place] [facility] [address] [id number] [place] [address]- 5125 Apr, [facility] [place] [facility] [address] [id number] [place] [address]- 4126 Apr, [facility] [place] [facility] [address] [id number] [place] [address]- 2907 Apr, [facility] [place] [facility] [address] [id number] [place] [address]- 9471 Apr, [facility] [place] [facility] [address] [id number] [place] [address]- 4559 Apr, [facility] [place] [facility] [address] [id number] [place] [address]- 2124 Apr, [facility] [place] [facility] [address] [id number] [place] [address]- 4645 Apr, [facility] [place] [facility] [address] [id number] [place] [address]- 3399 Apr, [facility] [place] [facility] [address] [id number] [place] [address]- 2344 Apr, [facility] [place] [facility] [address] [id number] [place] [address]- 5705 Apr, [facility] [place] [facility] [address] [id number] [place] [address]- 3788 Mar, [facility] [place] [facility] [address] [id number] [place] [address]- 3923 16 Mar, 2014 [facility] [place] [facility] [address] [id number] [place] [address]- 6198 Feb, [facility] [place] [facility] [address] [facility] [id number] [address]- 2546 Feb, [facility] [address] [facility] [id number] [address]- 7856 Feb, [facility] [address] [facility] [id number] [address]- 2546 Feb, [facility] [address] [facility] [id number] [address]- 2546 Jan, [facility] [address] [facility] [id number] [address]- 7085 Jan, IMMUNIZATIONS No Known Immunizations SOCIAL HISTORY Never Assessed REASON FOR VISIT Rx request PLAN OF CARE VITAL SIGNS MEDICATIONS Medication Instructions Dosage Frequency Start Date End Date Duration Status Xanax 0.25 MG Orally Twice a day PRN 1 tablet Feb, Active RESULTS No Results PROCEDURES No Known [...] Hospitalization History psychiatric stay s/p overdose in [place] in 2006 Hospitalization History chest pain and UTI 02/2017
--- OUTSIDE RECORDS SUMMARY | 2017-11-23 18:58 | XMS REPORT ---
Author Author ASHLEY KEE Organization [facility] Address [address] [place] [address] Care Team Providers Care Vest Busheler Name Role Phone ASHLEY KEE Unavailable PROBLEMS Type Condition ICD9-CM Code ILR84-GZ Code Onset Dates Condition Status SNOMED Code Problem Essential hypertension I10 Active 98840630 Problem Recurrent major depressive disorder, in full remission F33.42 Active 568745681 Problem Anxiety F41.9 Active 08066334 Problem Chronic migraine without aura without status migrainosus, not intractable G43.709 Active 198069904 Problem CPAP (continuous positive airway pressure) dependence Z99.89 Active 206659217 Problem Mixed incontinence urge and stress N39.46 Active 653487416 Problem 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 Active 6497482278270198 Problem 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.29 Active 175274077 Problem Proteinuria, unspecified R80.9 Active 75979749 Problem Multinodular goiter E04.2 Active 839103898 Problem Type 2 diabetes mellitus with hyperglycemia, without long-term current use of insulin E11.65 Active 28269333 Problem Chronic obstructive pulmonary disease, unspecified COPD type J44.9 Active 99775457 Problem Morbid obesity due to excess calories E66.01 Active 324394280 Problem Primary osteoarthritis of left knee M17.12 Active 002660689113282 Problem Obstructive sleep apnea syndrome G47.33 Active 40233221 Problem Lumbago with sciatica, unspecified side M54.40 Active 246805908 Problem Other chronic pain G89.29 Active 35414227 Problem Chronic fatigue R53.82 Active 70289897 Problem Hypercholesterolemia E78.00 Active 57062988 Problem Gastroesophageal reflux disease with esophagitis K21.0 Active 185232143 Problem Bipolar 1 disorder F31.9 Active 820340449 ALLERGIES No Information ENCOUNTERS Encounter Location Date Diagnosis [facility] [address] [facility] [id number] [address] Jan, [place] [address] [address] Oct, [place] [id number] [place] [address]2101- 8709 Oct, Recurrent major depressive disorder, in full remission F33.42 and Anxiety F41.9 [place] [id number] [place] [address] 73535- 0699 Sep, Other chronic pain G89.29 [place] [id number] [place] [address] 38107- 6280 Aug, Other chronic pain G89.29 [place] [address] [place] [id number] [place] [address] 33046- 4871 Aug, Chronic obstructive pulmonary disease, unspecified COPD [...] goiter E04.2 and BMI 40.0-44.9, adult Z68.41 [place] [id number] [place] [address] 13380- 7263 Aug, [place] [id number] [place] [address] 36766- 1495 Jul, Type 2 diabetes mellitus with hyperglycemia, without long- term current use of insulin E11.65 [address] [place] [address] 57464- 4121 Jul, Type 2 diabetes mellitus with hyperglycemia, without long- term current use of insulin E11.65 [place] [address] [place] [id number] [place] [address] 15155- 0896 Jul, [place] [address] [address] Jul, Type 2 diabetes mellitus with hyperglycemia, [...] immunization Z23 and BMI 40.0-44.9, adult Z68.[address] [address]- [address] Jun, Migraine without status migrainosus, not intractable, unspecified migraine type G43.909 ; Hypercholesterolemia E78.00 and Lumbago with sciatica, unspecified side M54.40 [place] [id number] [place] [address] 22021- 5495 Jun, Recurrent major depressive disorder, in full remission F33.42 and Anxiety F41.9 [place] [id number] [place] [address] 75743- 5814 Jun, [place] [id number] [place] [address] 90086- 8552 May, Hypercholesterolemia E78.00 ; 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.29 ; Migraine without status migrainosus , not intractable, unspecified migraine type G43.909 and Lumbago with sciatica, unspecified side M54.40 [place] [id number] [place] [address] 48599- 1422 14 May, 2017 Multinodular goiter E04.2 [place] [address] [place] [id number] [place] [address] 87648- 8519 May, [place] [address] [address]- [address]87 Apr, Multinodular goiter E04.2 [place] [address] [place] [id number] [place] [address] 44248- 7130 06 Apr, 2017 Abnormal imaging of thyroid R94.6 ; Hypercholesterolemia E78.00 and 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.29 [place] [address] [address]- 9[address] 29 Mar, 2017 Abnormal imaging of thyroid R94.6 [place] [address] 6[address]- [address]39 20 Mar, 2017 Chest wall mass R22.2 [place] [address] 7[address]57- 8[address] 07 Mar, 2017 Type 2 diabetes mellitus with hyperglycemia, without long- term current use of insulin E11.65 ; Gastroesophageal reflux disease with esophagitis K21.0 ; Hypercholesterolemia E78.00 ; Proteinuria, unspecified R80.9 ; 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.29 ; Chest wall mass R22.2 and Precordial pain R07.2 [place] [address] [place] [id number] [place] [address] 04380- 7950 Feb, Recurrent major depressive disorder, in full remission F33.42 [place] [address] [place] [id number] [place] [address] 97128- 5384 Feb, Recurrent major depressive disorder, in full remission F33.42 and Anxiety F41.9 [place] [address] 55229- 0339 Feb, [facility] [address] [place] [id number] [place] [address] [id number] Jan, Dental examination Z01.20 and Dental caries K02.9 [place] [address] 270[address]- [address] Dec, [facility] [id number] [place] [address] 00151- 2256 Dec, [place] [address] [place] [id number] [place] [address] 38824- 4069 Dec, Type 2 diabetes mellitus with hyperosmolarity [...] and Stress incontinence ( female) (male) N39.3 [facility] [address] [place] [id number] [place] [address] [id number] Dec, Dental caries K02.9 [place] [address] [place] [id number] [place] [address] 33610- 2193 November, [facility] [address] [place] [id number] [place] [address] 54520- 7441 November, Essential hypertension I10 ; Other chronic pain G89.29 ; Gastroesophageal reflux disease without esophagitis K21.9 and Anxiety F41.9 [facility] [address] [place] [address] [phone] November, Dental examination Z01.20 [facility] [address] [place] [address] 73834- 3105 Oct, Recurrent major depressive disorder, in full remission F33.42 [facility] [address] [place] [id number] [place] [address] 85855141- 8600 Sep, Other chronic pain G89.29 [facility] [address] [place] [id number] [place] [address] 35465- 8656 Sep, Other chronic pain G89.29 and Bipolar 1 disorder F31.9 [place] [address] [place] [address] 39445- 9174 Aug, Other chronic pain G89.29 [place] [address] [place] [id number] [place] [address] 70012- 9806 Jul, Gastroesophageal reflux disease without esophagitis K21.9 [place] [address] [place] [id number] [place] [address] 90350- 9214 Jun, Migraine without status migrainosus, not intractable, unspecified migraine type G43.909 [place] [address] [place] [id number] [place] [address] 75581- 6763 Jun, Type 2 diabetes mellitus with hyperosmolarity [...] ; Essential hypertension I10 and Hypercholesterolemia E78.00 [place] [address] [place] [address] 60157- 6601 May, [place] [address] [place] [id number] [place] [address] 02320- 8603 Apr, Edema, unspecified type R60.9 ; Type [...] Z23 and Stress incontinence (female) (male) N39.3 [place] [address] [place] [id number] [place] [address] 23801- 4228 Apr, [place] [address] 66234- 2765 Mar, Headache above the eye region R51 ; Lumbago with sciatica, unspecified side M54.40 ; Edema, unspecified type R60.9 and Migraine without status migrainosus, not intractable, unspecified migraine type G43.909 [place] [address] [place] [id number] [place] [address] 85134- 5613 Mar, Chronic obstructive pulmonary disease, unspecified COPD type J44.9 ; Type 2 diabetes mellitus with hyperosmolarity without coma, without long-term current use of insulin E11.00 ; Other chronic pain G89.29 ; Migraine without status migrainosus, not intractable, unspecified migraine type G43.909 ; Left-sided chest wall pain R07.89 and Anxiety about health F41.8 [place] [address] [place] [id number] [place] [address] 95335- 6732 Mar, [place] [address] [place] [id number] [place] [address] 90457- 8859 Mar, [place] [address] [place] [id number] [place] [address] 12016- 7433 Mar, [place] [address] [place] [id number] [place] [address] 22497- 5280 Feb, [place] [address] [place] [id number] [place] [address] 32030- 6151 Feb, [place] [address] [place] [id number] [place] [address] 10387- 7292 Feb, Chronic fatigue R53.82 ; Lumbago with sciatica, unspecified side M54.40 ; Gastroesophageal reflux disease with esophagitis K21.0 ; Other chronic pain G89.29 ; Morbid obesity due to excess calories E66.01 ; Migraine without status migrainosus, not intractable, unspecified migraine type G43.909 and Edema, unspecified type R60.9 [facility] [address] [id number] Feb, Dental examination Z01.20 [facility] [address] [place] [id number] [place] [address] 450428- 7056 Feb, [facility] [address] [address]- 9[address] Feb, Type 2 diabetes mellitus with hyperosmolarity without coma, without long-term current use of insulin E11.00 ; Chronic fatigue R53.82 ; Gastroesophageal reflux disease with esophagitis K21.0 ; Morbid obesity due to excess calories E66.01 ; Lumbago with sciatica, unspecified side M54.40 and Other chronic pain G89.29 [facility] [address], [place] [address]- 74[address] Feb, Type 2 diabetes mellitus with hyperosmolarity without coma, without long-term current use of insulin E11.00 ; Chronic fatigue R53.82 ; Gastroesophageal reflux disease with esophagitis K21.0 ; Morbid obesity due to excess calories E66.01 ; Lumbago with sciatica, unspecified side M54.40 and Other chronic pain G89.29 [facility] [address] [place] [address] [id number] Feb, Dental examination Z01.20 [facility] [address] [address]- 8596 Jan, [facility] [address] [place] [id number] [address]- 6081 Mar, [facility] [id number] [place] [address] [id number] Feb, Dental examination V72.2 [facility] [address] [place] [id number] [place] [address] 024402- 0850 Oct, [facility] [address], [place] [address]- 8817 Oct, [facility] [address] [place] [id number] [place] [address] 8817 Aug, [facility] [address] [id number] [place] [address] Aug, [facility] [address] [id number] [place] [address] Jul, [facility] [address] [id number] [place] [address]- 5716 Jul, [facility] [address] [id number] [place] [address]- 5543 Jun, [facility] [address] [id number] [place] [address]- 1798 Jun, [facility] [address] [id number] [place] [address]- 8128 Jun, [facility] [address] [id number] [place] [address]- 9319 Jun, [facility] [address] [id number] [place] [address]- 8304 Jun, [facility] [address] [id number] [place] [address]- 8251 Jun, [facility] [address] [id number] [place] [address]- 8784 Jun, [facility] [address] [id number] [place] [address]- 2546 16 Jun, 2014 [facility] [address] [id number] [place] [address]- 6251 16 Jun, 2014 [facility] [place] [facility] [address] [id number] [place] [address]- 2562 Jun, [facility] [place] [facility] [address] [id number] [place] [address]- 2096 Jun, [facility] [place] [facility] [address] [id number] [place] 6307 Jun, [facility] [place] [facility] [address] [id number] [place] [address]- 5129 Jun, [facility] [place] [facility] [address] [id number] [place] [address] May, [facility] [place] [facility] [address] [id number] [place] [address]- 7295 May, [facility] [place] [facility] [address] [id number] [place] [address]- 0391 May, [facility] [place] [facility] [address] [id number] [place] [address]- 6029 May, [facility] [place] [facility] [address] [id number] [place] [address]- 2554 Apr, [facility] [place] [facility] [address] [id number] [place] [address]- 4460 Apr, [facility] [place] [facility] [address] [id number] [place] [address]- 4237 Apr, [facility] [place] [facility] [address] [id number] [place] [address]- 3694 Apr, [facility] [place] [facility] [address] [id number] [place] [address]- 0615 Apr, [facility] [place] [facility] [address] [id number] [place] [address]- 1152 Apr, [facility] [place] [facility] [address] [id number], [place] [address]- 4614 Apr, [facility] [place] [facility] [address] [id number] [place] [address] Apr, [facility] [place] [facility] [address] [id number] [place] [address]- 3238 Apr, [facility] [place] [facility] [address] [id number], [place] [address]- 9743 Apr, [facility] [place] [facility] [address] [id number], [place] [address]- 2976 Mar, [facility] [address] [facility] [id number] [address]- 2837 Mar, [facility] [address] [facility] [id number], [place] [address]- 5022 Feb, [facility] [address] [facility] [place] [id number], [place] [address]- 9819 Feb, [facility] [address] [facility] [id number] [address]- 9189 Feb, [facility] [address] [facility] [id number] [address]- 3970 Feb, [facility] [address] [place] [id number] [address]- 7581 Jan, [facility] [address] [id number] [address]- 3463 Jan, IMMUNIZATIONS No Known Immunizations SOCIAL HISTORY Never Assessed REASON FOR VISIT med refill PLAN OF CARE VITAL SIGNS MEDICATIONS Medication Instructions Dosage Frequency Start Date End Date Duration Status Abilify 10 mg Orally Once a day 1 tablet 24h 30 days Active RESULTS No Results [...] Hospitalization History psychiatric stay s/p overdose in [place] in 2006 Hospitalization History chest pain and UTI 02/2017
--- OUTSIDE RECORDS SUMMARY | 2017-11-23 18:59 | XMS REPORT ---
Author Author AGUSTÍN SORENSON Organization [facility] Address [address] [place] [address] Care Team Providers Care Radio Frequency Technician Name Role Phone ABIMBOLA SORENSONNETTE Unavailable PROBLEMS Type Condition ICD9-CM Code YEJ22-NA Code Onset Dates Condition Status SNOMED Code Problem Migraine without status migrainosus, not intractable, unspecified migraine type G43.909 Active 76266706 Problem Essential hypertension I10 Active 62551807 Problem Edema, unspecified type R60.9 Active 713220729 Problem 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.29 Active 137412285 Problem Morbid obesity due to excess calories E66.01 Active 549134735 Problem Proteinuria, unspecified R80.9 Active 54125011 Problem Chronic obstructive pulmonary disease, unspecified COPD type J44.9 Active 97384204 Problem Gastroesophageal reflux disease without esophagitis K21.9 Active 575717485 Problem Anxiety F41.9 Active 11508524 Problem Type 2 diabetes mellitus with hyperglycemia, without long-term current use of insulin E11.65 Active 60412314 Problem Recurrent major depressive disorder, in full remission F33.42 Active 193994732 Problem Type 2 diabetes mellitus with hyperosmolarity without coma, without long-term current use of insulin E11.00 Active 21174933 Problem Gastroesophageal reflux disease with esophagitis K21.0 Active 025842444 Problem Lumbago with sciatica, unspecified side M54.40 Active 119275645 Problem Other chronic pain G89.29 Active 79288656 Problem Bipolar 1 disorder F31.9 Active 313331375 Problem Stress incontinence (female) (male) N39.3 Active 86593000 Problem Chronic fatigue R53.82 Active 78109028 Problem Encounter for immunization Z23 Active 925894377 Problem Hypercholesterolemia E78.00 Active 04413785 Problem Anxiety about health F41.8 Active 666444519 ALLERGIES No Information SOCIAL HISTORY Never Assessed PLAN OF CARE VITAL SIGNS MEDICATIONS Medication Instructions Dosage Frequency Start Date End Date Duration Status Gabapentin 300 MG Orally Three times a day 9 capsule 8h Active Abilify 10 mg Orally Once a day 1 tablet 24h Active Tizanidine HCl 2 MG Orally every 8 hrs 1 tablet as needed 8h Active RESULTS No Results PROCEDURES No [...] Hospitalization History psychiatric stay s/p overdose in [place] in 2006 Hospitalization History chest pain and UTI 02/2017
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
[2017-11-23 19:26] LABS: BILIRUBIN,URINE NEGATIVE (NEGATIVE); CLARITY,URINE CLEAR; COLOR,URINE YELLOW; GLUCOSE, URINE (UA) NEGATIVE (NEGATIVE); KETONES,URINE NEGATIVE (NEGATIVE); LEUKOCYTE ESTERASE ,URINE 3+ (NEGATIVE); NITRITE,URINE NEGATIVE (NEGATIVE); PH,URINE 6 (5-9); PROTEIN,URINE NEGATIVE (NEGATIVE); UROBILINOGEN,URINE NORMAL (NORMAL)
[2017-11-23 19:34] LABS: BACTERIA,URINE MODERATE /HPF; RBC,URINE 0-2 /HPF; WBC,URINE TNTC /HPF
[2017-11-23] MEDS ORDERED: NF-SOLIF5T PO (19:41)
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
[2017-11-23] MEDS ORDERED: KETOROLAC 60 MG/2 ML VIAL IM STA (20:07)
[2017-11-23] MEDS ORDERED: PHENAZOPYRIDINE 100 MG (PYRIDIUM) TABLET PO STA (20:07)
[2017-11-23] MEDS ORDERED: LIDOCAINE 1% INJ 50 ML (XYLOCAINE) VIAL IJ ONE (20:15)
[2017-11-23] MEDS ORDERED: cefTRIAXone 1 GM (ROCEPHIN) VIAL IM ONE (20:15)
[2017-11-23] MEDS ORDERED: PHEN-640 PO (20:25)
[2017-11-23] MEDS ORDERED: HYDR-3812 PO (20:25)
[2017-11-23] MEDS ORDERED: NITR-65 PO (20:25)
[2017-11-23 20:45] VITALS: BP 130/74
== END 2017-11-23 20:44 | disposition home or self-care (01) ==
LOC: EDUNIT# 18:44 → ER 18:45
DX: N39.0 Urinary tract infection, site not specified (principal); F41.9 Anxiety disorder, unspecified; E11.9 Type 2 diabetes mellitus without complications; K21.9 Gastro-esophageal reflux disease without esophagitis; G43.909 Migraine, unspecified, not intractable, without status migrainosus; E78.00 Pure hypercholesterolemia, unspecified; I10 Essential (primary) hypertension; G47.30 Sleep apnea, unspecified; F17.210 Nicotine dependence, cigarettes, uncomplicated; Z87.442 Personal history of urinary calculi; Z98.51 Tubal ligation status; Z87.42 Personal history of other diseases of the female genital tract; Z79.84 Long term (current) use of oral hypoglycemic drugs; Z88.0 Allergy status to penicillin; Z91.041 Radiographic dye allergy status
CPT/HCPCS: 81000; 87088; 87186; 96372; 99284

== ENCOUNTER → 2017-12-06 | Outpatient (CLI) | payer MEDICARE, MEDICAID ==
[~2017-12-06] MED LIST changes: +ASPI-983 PO; +FLUT1BLS IH; +GABA600T2 PO; +HYDR-3812 PO; +NF-SOLIF5T PO; +NITR-65 PO; +PHEN-640 PO; +SOLI10TA2 PO; +TOPI50TA13 PO
--- NOTE | 2017-12-06 17:36 | Diagnostic Imaging Report ---
INDICATION: Absent pedal pulses FINDINGS: Noninvasive study performed with segmental blood pressure. Ankle brachial index was 1.19 on the right side and 1.06 on the left side. Waveforms appeared symmetric. IMPRESSION: Unremarkable study. Dictated by: Dictated on workstation # [id number]
== END ==
LOC: RAD 08:32
PROVIDERS: ATTEND Family Medicine
DX: R09.89 Other specified symptoms and signs involving the circulatory and respiratory systems (principal)
CPT/HCPCS: 93922

== ENCOUNTER 2017-12-07 12:45 | Day surgery (SDC) | payer MEDICARE, MEDICAID ==
[2017-12-07] VITALS (8 sets, daily range): BP systolic 115–150; BP diastolic 72–86
[~2017-12-07] VITALS: Ht 166.4 cm; Wt 126.1 kg
[~2017-12-07 12:45] MED LIST changes: -ASPI-983 PO; -FLUT1BLS IH; -GABA600T2 PO; -SOLI10TA2 PO; -TOPI50TA13 PO
[2017-12-07] MEDS ORDERED: NS IV 1000 ML 3,000 ML ONE (12:46)
--- OUTSIDE RECORDS SUMMARY | 2017-12-07 12:58 | XMS REPORT ---
Author Author OBINNA HARDING [facility] Address [address] [place] [address] Care Team Providers Care Associate Dean Name Role Phone OBINNA HARDING Unavailable PROBLEMS Type Condition ICD9-CM Code RGV04-WO Code Onset Dates Condition Status SNOMED Code Problem Essential hypertension I10 Active 38213420 Problem Recurrent major depressive disorder, in full remission F33.42 Active 811974855 Problem Anxiety F41.9 Active 32159704 Problem Chronic migraine without aura without status migrainosus, not intractable G43.709 Active 788223022 Problem CPAP (continuous positive airway pressure) dependence Z99.89 Active 253499360 Problem Mixed incontinence urge and stress N39.46 Active 337705150 Problem 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 Active 9574903120826013 Problem 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.29 Active 693183882 Problem Proteinuria, unspecified R80.9 Active 11275782 Problem Multinodular goiter E04.2 Active 804136489 Problem Type 2 diabetes mellitus with hyperglycemia, without long-term current use of insulin E11.65 Active 55186598 Problem Chronic obstructive pulmonary disease, unspecified COPD type J44.9 Active 42703967 Problem Morbid obesity due to excess calories E66.01 Active 025209922 Problem Primary osteoarthritis of left knee M17.12 Active 490997129257518 Problem Obstructive sleep apnea syndrome G47.33 Active 11199990 Problem Lumbago with sciatica, unspecified side M54.40 Active 168168380 Problem Other chronic pain G89.29 Active 30829229 Problem Chronic fatigue R53.82 Active 06794399 Problem Hypercholesterolemia E78.00 Active 60584431 Problem Gastroesophageal reflux disease with esophagitis K21.0 Active 908925897 Problem Bipolar 1 disorder F31.9 Active 554261466 ALLERGIES No Information ENCOUNTERS Encounter Location Date Diagnosis [facility] [address] [address] Jan, [place] [address], [place] [address] Dec, [place] [id number] [place] [address] [id number]- 1310 November, [place] [address] [place] [address] 18441- 8934 Oct, Recurrent major depressive disorder, in full remission F33.42 and Anxiety F41.9 [place] [address] [place] [address] 31550- 5633 Sep, Other chronic pain G89.29 [place] [address] [place] [id number] [place] [address] 74211- 2086 2017 Other chronic pain G89.29 [place] [address] [place] [id number] [place] [address] 03345- 9198 09 Aug, 2017 Chronic obstructive pulmonary disease, [...] goiter E04.2 and BMI 40.0-44.9, adult Z68.41 [place] [address] [address] Aug, [place] [address] [place] [address] 89825- 1480 Jul, Type 2 diabetes mellitus with hyperglycemia, without long- term current use of insulin E11.65 [place] [address] [place] [id number] [place] [address] 51355- 8232 Jul, Type 2 diabetes mellitus with hyperglycemia, without long- term current use of insulin E11.65 [place] [address] [place] [id number] [place] [address] 60805- 2851 Jul, [place] [address] [place] [id number] [place] [address] 39348- 2232 Jul, Type 2 diabetes mellitus with hyperglycemia, [...] immunization Z23 and BMI 40.0-44.9, adult Z68.41 [place] [address] [place] [id number] [place] [address] 00506- 2357 Jun, Migraine without status migrainosus, not intractable, unspecified migraine type G43.909 ; Hypercholesterolemia E78.00 and Lumbago with sciatica, unspecified side M54.40 [place] [id number] [place] [address] 66896- 7801 Jun, Recurrent major depressive disorder, in full remission F33.42 and Anxiety F41.9 [place] [address] [place] [address] 84955- 1379 Jun, [place] [address] [place] [id number] [place] [address] 17678- 5321 May, Hypercholesterolemia E78.00 ; 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.29 ; Migraine without status migrainosus , not intractable, unspecified migraine type G43.909 and Lumbago with sciatica, unspecified side M54.40 [place] [address] [place] [id number] [place] [address] 89338- 4546 May, Multinodular goiter E04.2 [place] [address] [place] [id number] [place] [address] 02436- 6424 May, [place] [address] [place] [id number] [place] [address] 37926- 3877 Apr, Multinodular goiter E04.2 [place] [address] [place] [id number] [place] [address] 24855- 2439 Apr, Abnormal imaging of thyroid R94.6 ; Hypercholesterolemia E78.00 and 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.29 [place] [id number] [place] [address] 21109- 6668 29 Mar, 2017 Abnormal imaging of thyroid R94.6 [place] [address] [place] [id number] [place] [address] 51944- 9370 Mar, Chest wall mass R22.2 [place] [address] [place] [id number] [place] [address] 97316- 5917 07 Mar, 2017 Type 2 diabetes mellitus with hyperglycemia, without long- term current use of insulin E11.65 ; Gastroesophageal reflux disease with esophagitis K21.0 ; Hypercholesterolemia E78.00 ; Proteinuria, unspecified R80.9 ; 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.29 ; Chest wall mass R22.2 and Precordial pain R07.2 [place] [address] [place] [address] 14273- 7416 Feb, Recurrent major depressive disorder, in full remission F33.42 [address] [place] [address] 89671- 4766 Feb, Recurrent major depressive disorder, in full remission F33.42 and Anxiety F41.9 [place] [address] [place] [address] 14664- 4449 Feb, [facility] [address] [place] [address] [id number] Jan, Dental examination Z01.20 [address] Dental caries K02.9 [facility] [address] [place] [id number] [address] Dec, [facility] [address] [place] [id number] [place] [address] 74353- 4411 Dec, [facility] [address] [place] [id number] [place] [address] 51991- 8338 Dec, Type 2 diabetes mellitus with hyperosmolarity [...] Stress incontinence ( female) (male) N39.3 [facility] [address] [place] [address] [id number] Dec, Dental caries K02.9 [facility] [address] [place] [id number] [place] [address] 59893- 3006 November, [facility] [address] [place] [id number] [place] [address] 62104- 7589 November, Essential hypertension I10 ; Other chronic pain G89.29 ; Gastroesophageal reflux disease without esophagitis K21.9 and Anxiety F41.9 [facility] [address] [place] [address] [id number] November, Dental examination Z01.20 [facility] [address] [place] [id number] [place] [address] 39488- 8588 Oct, Recurrent major depressive disorder, in full remission F33.42 [facility] [address] [place] [id number] [place] [address] 59723- 4533 Sep, Other chronic pain G89.29 [place] [address], [place] [address] 2354 Sep, Other chronic pain G89.29 and Bipolar 1 disorder F31.9 [place] [address] [place] [address] 25957- 4560 Aug, Other chronic pain G89.29 [place] [address] [place] [id number] [place] [address] 71153- 2917 Jul, Gastroesophageal reflux disease without esophagitis K21.9 [place] [address] [place] [id number] [place] [address] 34302- 2187 Jun, Migraine without status migrainosus, not intractable, unspecified migraine type G43.909 [place] [address] [place] [address] 99351- 0921 Jun, Type 2 diabetes mellitus with hyperosmolarity [...] ; Essential hypertension I10 and Hypercholesterolemia E78.00 [place] [address] [place] [address] 12627- 6476 May, [place] [address] [place] [id number] [place] [address] 49006- 9652 Apr, Edema, unspecified type R60.9 ; Type [...] Z23 and Stress incontinence (female) (male) N39.3 [place] [address] 82955- 0863 Apr, [place] [address] [place] [id number] [place] [address] 76965- 5773 Mar, Headache above the eye region R51 ; Lumbago with sciatica, unspecified side M54.40 ; Edema, unspecified type R60.9 and Migraine without status migrainosus, not intractable, unspecified migraine type G43.909 [place] [address] [place] [id number] [place] [address] 51458- 5467 Mar, Chronic obstructive pulmonary disease, unspecified COPD type J44.9 ; Type 2 diabetes mellitus with hyperosmolarity without coma, without long-term current use of insulin E11.00 ; Other chronic pain G89.29 ; Migraine without status migrainosus, not intractable, unspecified migraine type G43.909 ; Left-sided chest wall pain R07.89 and Anxiety about health F41.8 [place] [address] [place] [id number] [place] [address] 97897- 8197 Mar, [place] [address] 89855- 1485 Mar, [place] [address] [place] [id number] [place] [address] 39152- 6083 Mar, [place] [address] [place] [id number] [place] [address] 89746- 6951 Feb, [place] [address] [place] [id number] [place] [address] 21675- 6202 Feb, [place] [address] 31545- 5697 Feb, Chronic fatigue R53.82 ; Lumbago with sciatica, unspecified side M54.40 ; Gastroesophageal reflux disease with esophagitis K21.0 ; Other chronic pain G89.29 ; Morbid obesity due to excess calories E66.01 ; Migraine without status migrainosus, not intractable, unspecified migraine type G43.909 and Edema, unspecified type R60.9 [facility] [address] [place] [id number] [place] [address] [id number] Feb, Dental examination Z01.20 [facility] [address] [place] [id number] [place] [address] 06120- 8370 Feb, [facility] [address] [place] [id number] [place] [address] 56077- 8060 Feb, Type 2 diabetes mellitus with hyperosmolarity without coma, without long-term current use of insulin E11.00 ; Chronic fatigue R53.82 ; Gastroesophageal reflux disease with esophagitis K21.0 ; Morbid obesity due to excess calories E66.01 ; Lumbago with sciatica, unspecified side M54.40 and Other chronic pain G89.29 [facility] [address] [place] [id number] [place] [address] 51826- 3933 Feb, Type 2 diabetes mellitus with hyperosmolarity without coma, without long-term current use of insulin E11.00 ; Chronic fatigue R53.82 ; Gastroesophageal reflux disease with esophagitis K21.0 ; Morbid obesity due to excess calories E66.01 ; Lumbago with sciatica, unspecified side M54.40 and Other chronic pain G89.29 [facility] [address] [place] [id number] [place] [address] [id number] Feb, Dental examination Z01.20 [facility] [address] [place] [id number] [place] [address] 93077- 3826 Jan, [facility] [address] [place] [id number] [place] [address] [id number]- 0072 Mar, [facility] [address] [place] [id number] [place] [address] [id number] Feb, Dental examination V72.2 [facility] [address] [place] [id number] [place] [address] 82898- 7262 Oct, [facility] [address] [place] [address]- 3459 Oct, [facility] [address] [id number] [place] [address]- 4516 Aug, [facility] [place] [facility] [address] [id number] [place] [address] Aug, [facility] [place] [facility] [address] [id number] [place] [address]- 2066 Jul, [facility] [place] [facility] [address] [id number] [place] [address] 2546 Jul, [facility] [place] [facility] [address] [id number] [place] [address]- 5586 Jun, [facility] [place] [facility] [address] [id number] [place] [address]- 2081 Jun, [facility] [place] [facility] [address] [id number] [place] [address]- 7715 Jun, [facility] [place] [facility] [address] [id number] [place] [address]- 0380 Jun, [facility] [place] [facility] [address] [id number] [place] [address]- 2542 Jun, [facility] [place] [facility] [address] [id number] [place] [address]- 2541 Jun, [facility] [place] [facility] [address] [id number] [place] [address] 2546 Jun, [facility] [place] [facility] [address] [id number] [place] [address]- 2546 Jun, [facility] [place] [facility] [address] [id number] [place] [address] 2546 Jun, [facility] [place] [facility] [address] [id number] [place] [address]- 2546 Jun, [facility] [place] [facility] [address] [id number] [place] [address]- 2548 Jun, [facility] [place] [facility] [address] [id number] [place] [address]- 7233 Jun, [facility] [place] [facility] [address] [id number] [place] [address]- 6613 Jun, [facility] [place] [facility] [address] [id number] [place] [address]- 5249 May, [facility] [place] [facility] [address] [id number] [place] [address]- 0692 May, [facility] [place] [facility] [address] [id number] [place] [address]- 8341 May, [facility] [place] [facility] [address] [id number] [place] [address]- 4473 May, [facility] [place] [facility] [address] [id number] [place] [address]- 3291 Apr, [facility] [place] [facility] [address] [id number] [place] [address]- 5036 Apr, [facility] [place] [facility] [address] [id number] [place] [address]- 1904 Apr, [facility] [place] [facility] [address] [id number] [place] [address]- 7903 Apr, [facility] [place] [facility] [address] [id number] [place] [address]- 5648 Apr, [facility] [place] [facility] [address] [id number] [place] [address]- 5747 Apr, [facility] [place] [facility] [address] [id number] [place] 2401 Apr, [facility] [place] [facility] [address] [id number] [place] [address]- 7060 Apr, [facility] [place] [facility] [address] [id number] [place] [address]- 0743 Apr, [facility] [place] [facility] [address] [id number] [address]- 5934 Apr, [facility] [address] [facility] [id number] [address]- 9251 Mar, [facility] [address] [facility] [id number] [address]- 4379 Mar, [facility] [address] [facility] [id number] [address]- 6827 Feb, [facility] [address] [facility] [id number] [address]- 5695 Feb, [facility] [address] [facility] [id number] Feb, [facility] [address] [facility] [id number] 8135 Feb, [facility] [address] [place] [id number]26 Jan, [facility] [address] [facility] [id number], [place] [address] Jan, IMMUNIZATIONS No Known Immunizations SOCIAL HISTORY Never Assessed REASON FOR VISIT Thyroid ultrasound results PLAN OF CARE VITAL SIGNS MEDICATIONS Unknown Medications RESULTS Name Result Date Reference Range Ultrasound : Guide for Biopsy 2017-05-20 PROCEDURES No Known procedures INSTRUCTIONS MEDICATIONS ADMINISTERED [...] Hospitalization History psychiatric stay s/p overdose in [place] in 2006 Hospitalization History chest pain and UTI 02/2017
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
[2017-12-07] MEDS ORDERED: NS IV 1000 ML 1,000 ML IV SCH (13:00)
[2017-12-07 13:24] LABS: HEMOGLOBIN 13.8 G/DL (11.5-16.0); MEAN PLATELET VOLUME 10.7 FL (7.4-10.4); RED BLOOD COUNT 5.14 10^6/uL (4.35-5.85); RED CELL DISTRIBUTION WIDTH 16.5 % (10.0-14.5); WHITE BLOOD COUNT 20.2 10^3/uL (4.3-11.0)
[2017-12-07] MEDS ORDERED: RECEIVED CONTRAST (Hold Metformin) IV SCH (13:30)
[2017-12-07] MEDS ORDERED: SOLI10TA2 PO (13:34)
[2017-12-07] MEDS ORDERED: TIZA2TAB3 PO (13:34)
[2017-12-07] MEDS ORDERED: TOPI50TA13 PO (13:34)
[2017-12-07] MEDS ORDERED: GABA600T2 PO (13:34)
[2017-12-07] MEDS ORDERED: ASPI-983 PO (13:35)
[2017-12-07] MEDS ORDERED: FLUT1BLS IH (13:36)
[2017-12-07] MEDS ORDERED: LIDOCAINE 1% INJ 20 ML 20 ML VIAL ONE (13:38)
[2017-12-07] MEDS ORDERED: HEParin 1000 UNIT/ML (10ML VIAL) FOR BOLUS ONE (13:39)
[2017-12-07 13:43] LABS: ALANINE AMINOTRANSFERASE 16 U/L (0-55); ALBUMIN 4.2 GM/DL (3.2-4.5); ALKALINE PHOSPHATASE 83 U/L (40-136); BILIRUBIN,TOTAL 0.3 MG/DL (0.1-1.0); BUN/CREATININE RATIO 12; CALCIUM 9.8 MG/DL (8.5-10.1); CARBON DIOXIDE 16 MMOL/L (21-32); CHLORIDE 110 MMOL/L (98-107); CHOLESTEROL 231 MG/DL (< 200); CREATININE SERUM 0.99 MG/DL (0.60-1.30); GFR ESTIMATED > 60; GLUCOSE 146 MG/DL (70-105); HDL CHOLESTEROL 45 MG/DL (40-60); SODIUM 139 MMOL/L (135-145); TOTAL PROTEIN 7.8 GM/DL (6.4-8.2); TRIGLYCERIDES 133 MG/DL (<150); VLDL CHOLESTEROL 27 MG/DL (5-40)
[2017-12-07] MEDS ORDERED: MIDAZOLAM 5 MG/5 ML (VERSED) VIAL ONE (15:34)
[2017-12-07] MEDS ORDERED: fentaNYL INJECTION 100 MCG/2 ML AMP ONE (15:34)
[2017-12-07] MEDS ORDERED: diphenhydrAMINE 50 MG/ML INJ (BENADRYL) ONE (15:34)
--- NOTE | 2017-12-07 16:14 | Cardiac Procedure Note-CS/ASA ---
Pre-Procedure Note Pre-Op Procedure Note H&P Reviewed The H&P was reviewed, patient examined and no changes noted. Date H&P Reviewed: December 07, 2017 Time H&P Reviewed: 16:13 Conscious Sedation Pre-Proced Time Reviewed: 16:13 ASA Class: 3 Airway Mallampati Classification: (bois forte appropriate class) I. II. III, IV Lungs Heart ASA score ASA 1: a normal healthy patient ASA 2: a patient with a mild systemic disease (mid diabetes, controlled hypertension, obesity ASA 3: a patient with a severe systemic disease that limits activity (angina , COPD, prior Myocardial infarction) ASA 4: a patient with an incapacitating disease that is a constant threat to life (CHF, renal failure) ASA 5: a moribund patient not expected to survive 24 hrs. (ruptured aneurysm) ASA 6: a declared brain patient whose organs are being harvested. For emergent operations, add the letter E after the classification Grade 3 Sedation Plan: Analgesia, Amnesia, Plan communicated to team members, Discussed options with patient/fam, Discussed risks with patient/fam Note The patient is an appropriate candidate to undergo the planned procedure, sedation, and anesthesia. The patient immediately re-assessed prior to indication. ZURI DAVILA MD FACP FAC CCDS December 07, 2017 16:14
--- NOTE | 2017-12-07 20:20 | CARDIAC CATHETERIZATION ---
DATE OF SERVICE: 12/07/2017 CARDIAC CATHETERIZATION REPORT The patient is a 47-year-old lady, who has multiple coronary artery disease risk factors including diabetes mellitus, history of smoking, who has symptoms suggestive of new onset of angina. Cardiac catheterization was carried out today after having obtained an informed consent. DESCRIPTION OF PROCEDURE: She was brought to the cardiac catheterization laboratory. The left groin was prepared and draped in the usual sterile fashion. Left groin access was used per patient request. We used 1% lidocaine for local anesthesia. Modified Seldinger technique was used to advance a 5-Kenyan sheath in the right femoral artery. A 5-Kenyan JL3.5 catheter was used for left coronary angiography. A 5-Kenyan JR4 catheter was used for right coronary angiography. A 5-Kenyan pigtail catheter was used for left heart catheterization and left ventricular angiography. A 5-Kenyan pigtail catheter was used for aortic root angiography. She tolerated the procedure well. At the end of the procedure, following angiography of the left femoral artery, Mynx was used to achieve hemostasis. HEMODYNAMICS: Left ventricular end-diastolic pressure following coronary angiography was 15 mmHg. There is no significant pressure gradient on pullback across the aortic valve. Ascending aortic pressure is 125/79 with a mean of 88 mmHg. LEFT VENTRICULAR ANGIOGRAPHY: Left ventricular angiography was carried out in the right anterior oblique projection. Global left ventricular systolic function normal. No regional wall motion abnormalities are seen. Left ventricular ejection fraction is 55% to 60%. There does not appear to be significant mitral regurgitation. CORONARY ANGIOGRAPHY: Left main coronary artery is free of significant disease. Left anterior descending, left circumflex and right coronary arteries have minor plaques. The right coronary artery is dominant. AORTIC ROOT ANGIOGRAPHY: Aortic root angiography did not indicate any significant aortic root or ascending aortic aneurysm or dissection or significant aortic regurgitation. DISCUSSION AND RECOMMENDATIONS: Based on the results of the study, it appears appropriate to continue a conservative approach. She has been advised to quit smoking immediately and completely. Other risk factor modification has been reviewed. Outpatient followup is advised. She is noted to have leucocytosis, likely due to steroid therapy for h/o contrast allergy. She has been advised f/u with her pcp on this Job ID: [id number] DocumentID: [id number] Dictated Date: 12/07/2017 16:41:40 Lock Up Worker Date: 12/07/2017 20:20:19 Dictated By: ZURI DAVILA MD, MA, FACP, FACC, MTDD
== END 2017-12-07 21:17 | disposition home or self-care (01) ==
LOC: CATH 12:45 → 4TH 17:26 → CATH 21:17
PROVIDERS: ATTEND Nurse Practitioner Family
DX: R07.89 Other chest pain (principal); R06.02 Shortness of breath; D72.829 Elevated white blood cell count, unspecified; E11.9 Type 2 diabetes mellitus without complications; G47.33 Obstructive sleep apnea (adult) (pediatric); F17.210 Nicotine dependence, cigarettes, uncomplicated; R94.31 Abnormal electrocardiogram [ECG] [EKG]; E66.01 Morbid (severe) obesity due to excess calories; Z68.42 Body mass index [BMI] 45.0-49.9, adult; Z79.84 Long term (current) use of oral hypoglycemic drugs; Z79.899 Other long term (current) drug therapy
CPT/HCPCS: 36415; 80053; 80061; 85027; 85610; 85730; 87081; 93458; 93567

== ENCOUNTER 2018-01-17 09:17 | Outpatient (RCR) | payer MEDICARE, MEDICAID ==
[~2018-01-17 09:17] MED LIST changes: +ASPI-983 PO; +FLUT1BLS IH; +GABA600T2 PO; +METF-397 PO; -METF500T5 PO; -OXYC-201 PO; +OXYC1TAB16 PO; +SOLI10TA2 PO; +TOPI50TA13 PO
== END 2018-02-15 | disposition home or self-care (01) ==
LOC: PULM 09:17
PROVIDERS: ATTEND Nurse Practitioner Family
DX: J98.4 Other disorders of lung (principal)
CPT/HCPCS: 99211

== ENCOUNTER → 2018-01-26 | Outpatient (CLI) | payer MEDICARE, MEDICAID ==
[~2018-01-26] MED LIST changes: -METF-397 PO; +METF500T5 PO; +OXYC-201 PO; -OXYC1TAB16 PO
--- NOTE | 2018-01-26 11:45 | Diagnostic Imaging Report ---
PROCEDURE: MRI lumbar spine. TECHNIQUE: Multiplanar, multisequence MRI of the lumbar spine was performed without contrast. INDICATION: Lumbago. COMPARISON: No prior studies are available for comparison. FINDINGS: Curvature and alignment of the lumbar spine is normal. Vertebral body heights are maintained. No acute compression fracture is seen. No geographic marrow lesion is seen. There is some loss of height and signal intensity to the L3-4, L4-5 and L5-S1 discs compatible with degenerative disc disease. The conus is unremarkable at the T12-L1 level. T12-L1: No central canal or neural foraminal stenosis is identified. L1-2: Unremarkable. L2-3: Unremarkable. L3-4: There is asymmetric right posterolateral broad-based disc/osteophyte complex. This does result in moderate right neural foraminal and right lateral recess narrowing. Central canal and left neural foramen are patent. L4-5: No significant central canal or neural foraminal stenosis is identified. L5-S1: Mild broad-based disc/osteophyte complex is present but no central canal or neural foraminal stenosis is seen. The paraspinous tissues are unremarkable. IMPRESSION: Lumbar spondylosis. There is right lateral recess and right neural foraminal narrowing L3-4 level, as described. No central canal stenosis or evidence of acute compression fracture is identified. Dictated by: Dictated on workstation # [id number]
== END ==
LOC: RAD 10:49
PROVIDERS: ATTEND Orthopaedic Surgery Orthopaedic Surgery of the Spine
DX: M99.73 Connective tissue and disc stenosis of intervertebral foramina of lumbar region (principal); M51.36 Other intervertebral disc degeneration, lumbar region; M47.816 Spondylosis without myelopathy or radiculopathy, lumbar region
CPT/HCPCS: 72148

== ENCOUNTER 2018-04-14 17:43 | Emergency (ER) | payer MEDICARE, MEDICAID ==
[~2018-04-14] VITALS: Ht 167.6 cm; Wt 120.2 kg
[~2018-04-14 17:43] MED LIST changes: +METF-397 PO; -METF500T5 PO; -OXYC-201 PO; +OXYC1TAB16 PO
[2018-04-14] MEDS ORDERED: NS IV 1000 ML 1,000 ML IV SCH (18:00)
[2018-04-14 18:06] LABS: BILIRUBIN,URINE NEGATIVE (NEGATIVE); CLARITY,URINE SLIGHTLY CLOUDY; COLOR,URINE YELLOW; GLUCOSE, URINE (UA) NEGATIVE (NEGATIVE); KETONES,URINE 1+ (NEGATIVE); LEUKOCYTE ESTERASE ,URINE 3+ (NEGATIVE); NITRITE,URINE NEGATIVE (NEGATIVE); PH,URINE 6 (5-9); PROTEIN,URINE 2+ (NEGATIVE); UROBILINOGEN,URINE 1 MG/DL (NORMAL)
[2018-04-14 18:13] LABS: BACTERIA,URINE FEW /HPF; RBC,URINE 0-2 /HPF; WBC,URINE >100 /HPF
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
[2018-04-14 18:21] LABS: BASOPHILS # (AUTO) 0.1 10^3/uL (0.0-0.1); BASOPHILS % (AUTO) 0 % (0-10); EOSINOPHILS # (AUTO) 0.2 10^3/uL (0.0-0.3); EOSINOPHILS % (AUTO) 1 % (0-10); HEMATOCRIT 38 % (35-52); HEMOGLOBIN 12.6 G/DL (11.5-16.0); LYMPHOCYTES # (AUTO) 4.1 X 10^3 (1.0-4.0); LYMPHOCYTES % (AUTO) 28 % (12-44); MEAN CORPUSCULAR HEMOGLOBIN 27 PG (25-34); MEAN CORPUSCULAR HGB CONC 33 G/DL (32-36); MEAN CORPUSCULAR VOLUME 81 FL (80-99); MEAN PLATELET VOLUME 10.5 FL (7.4-10.4); MONOCYTES # (AUTO) 0.7 X 10^3 (0.0-1.0); MONOCYTES % (AUTO) 5 % (0-12); NEUTROPHILS # (AUTO) 9.5 X 10^3 (1.8-7.8); NEUTROPHILS % (AUTO) 66 % (42-75); PLATELET COUNT 367 10^3/uL (130-400); RED BLOOD COUNT 4.67 10^6/uL (4.35-5.85); RED CELL DISTRIBUTION WIDTH 14.7 % (10.0-14.5); WHITE BLOOD COUNT 14.5 10^3/uL (4.3-11.0)
[2018-04-14 18:39] LABS: BAND NEUTROPHILS 0 %; NEUTROPHILS % (MANUAL) 58 %
[2018-04-14 18:40] LABS: BASOPHILS % (MANUAL) 3 %; EOSINOPHILS % (MANUAL) 2 %; LYMPHOCYTES % (MANUAL) 35 %; MONOCYTES % (MANUAL) 2 %; RBC MORPH NORMAL
[2018-04-14 18:42] LABS: ALANINE AMINOTRANSFERASE 14 U/L (0-55); ALBUMIN 3.5 GM/DL (3.2-4.5); ALKALINE PHOSPHATASE 74 U/L (40-136); BILIRUBIN,TOTAL 0.2 MG/DL (0.1-1.0); BUN/CREATININE RATIO 10; CALCIUM 8.8 MG/DL (8.5-10.1); CARBON DIOXIDE 17 MMOL/L (21-32); CHLORIDE 112 MMOL/L (98-107); CREATININE SERUM 0.82 MG/DL (0.60-1.30); GFR ESTIMATED > 60; GLUCOSE 150 MG/DL (70-105); POTASSIUM 3.5 MMOL/L (3.6-5.0); SODIUM 139 MMOL/L (135-145); TOTAL PROTEIN 5.9 GM/DL (6.4-8.2)
[2018-04-14] MEDS ORDERED: cefTRIAXone FOR IV USE 1,000 MG in NS (IVPB) 50 ML IV ONE (18:45)
--- OUTSIDE RECORDS SUMMARY | 2018-04-14 19:04 | XMS REPORT ---
Author Author MEHDI OBINNA [facility] Address [address] [place] [address] Care Team Providers Care Vault Installer Name Role Phone OBINNA HARDING Unavailable PROBLEMS Type Condition ICD9-CM Code SOF12-GE Code Onset Dates Condition Status SNOMED Code Problem Essential hypertension I10 Active 47370349 Problem Recurrent major depressive disorder, in full remission F33.42 Active 585952834 Problem Anxiety F41.9 Active 41816504 Problem Chronic migraine without aura without status migrainosus, not intractable G43.709 Active 195694412 Problem Chronic obstructive pulmonary disease, unspecified COPD type J44.9 Active 31473679 Problem Mixed incontinence urge and stress N39.46 Active 467030319 Problem Obstructive sleep apnea syndrome G47.33 Active 65987303 Problem 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 Active 1618048646287266 Problem Proteinuria, unspecified R80.9 Active 79676319 Problem Type 2 diabetes mellitus with hyperglycemia, without long-term current use of insulin E11.65 Active 01289330 Problem Multinodular goiter E04.2 Active 210449357 Problem 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.29 Active 695733283 Problem Precordial pain R07.2 Active 06819661 Problem Lumbago with sciatica, unspecified side M54.40 Active 387600719 Problem CPAP (continuous positive airway pressure) dependence Z99.89 Active 334425641 Problem Primary osteoarthritis of left knee M17.12 Active 517152021408267 Problem Gastroesophageal reflux disease with esophagitis K21.0 Active 605582795 Problem Chronic fatigue R53.82 Active 40821405 Problem Other chronic pain G89.29 Active 88073839 Problem Hypercholesterolemia E78.00 Active 56118052 Problem Morbid obesity due to excess calories E66.01 Active 262371565 Problem Bipolar 1 disorder F31.9 Active 554705476 ALLERGIES Substance Reaction Event Type Date Status Penicillin V Potassium Unknown Drug Allergy Feb, Active Iodine Unknown Drug Allergy Feb, Active ENCOUNTERS Encounter Location Date Diagnosis [facility] [facility] [id number] [place] [address] 03554- 3829 Apr, [place] [facility] [id number] [place] [address] 56939- 8710 Mar, [facility] [facility] [id number] [place] [address] 94203- 3677 Mar, [facility] [id number] [place] [address] 95258- 4598 Feb, Type 2 diabetes mellitus with hyperglycemia, without long- term current use of insulin E11.65 ; Viral upper respiratory tract infection J06.9 ; Tobacco use Z72.0 ; BMI 40.0-44.9, adult Z68.41 and Food insecurity Z59.4 [facility] [id number] [place] [address] 15651- 0826 Jan, Recurrent major depressive disorder, in full remission F33.42 and Anxiety F41.9 [facility] [id number] [place] [address] 77326- 1706 Jan, Recurrent major depressive disorder, in full remission F33.42 [facility] [id number] [place] [address] 29984- 6768 November, [facility] [id number] [place] [address] 38952- 9531 November, Chronic migraine without aura without status migrainosus, not intractable G43.709 [facility] [id number] [place] [address] 95498- 8362 November, Type 2 diabetes mellitus with hyperglycemia, without long- term current use of insulin E11.65 ; Dysuria R30.0 ; Acute cystitis without hematuria N30.00 ; Lumbago with sciatica, unspecified side M54.40 ; Other chronic pain G89.29 ; Chronic obstructive pulmonary disease, unspecified COPD type J44.9 ; Chest pain, unspecified type R07.9 ; Absent pedal pulses R09.89 and BMI 40.0-44.9, adult Z68.41 [facility] [place] [id number] [place] [address] 55103- 6018 Oct, Recurrent major depressive disorder, in full remission F33.42 and Anxiety F41.9 [facility] [id number] [place] [address] 38189- 5387 Sep, Other chronic pain G89.29 [facility] [id number] [place] [address] 97710- 1883 Aug, Other chronic pain G89.29 [facility] [facility] [address] 42057- 9644 Aug, Chronic obstructive pulmonary disease, unspecified COPD [...] goiter E04.2 and BMI 40.0-44.9, adult Z68.41 [facility] [address] [place] [address] 72034- 1335 Aug, [place] [id number] [place] [address] 61207- 1851 Jul, Type 2 diabetes mellitus with hyperglycemia, without long- term current use of insulin E11.65 [facility] [id number] [place] [address] 95545- 5946 Jul, Type 2 diabetes mellitus with hyperglycemia, without long- term current use of insulin E11.65 [facility] [id number] [place] [address] 13815- 4767 Jul, [place] [address] [place] [address] 51180- 0798 Jul, Type 2 diabetes mellitus with hyperglycemia, [...] immunization Z23 and BMI 40.0-44.9, adult Z68.41 [facility] [place] [id number] [place] [address] 11284- 3361 Jun, Migraine without status migrainosus, not intractable, unspecified migraine type G43.909 ; Hypercholesterolemia E78.00 and Lumbago with sciatica, unspecified side M54.40 [facility] [id number] [place] [address] 48640- 3338 Jun, Recurrent major depressive disorder, in full remission F33.42 and Anxiety F41.9 [facility] [place] [id number] [place] [address] 18094- 9492 Jun, [place] [id number] [place] [address] 60139- 9166 May, Hypercholesterolemia E78.00 ; 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.29 ; Migraine without status migrainosus , not intractable, unspecified migraine type G43.909 and Lumbago with sciatica, unspecified side M54.40 [facility] [id number] [place] [address] 92604- 0259 14 May, 2017 Multinodular goiter E04.2 [facility] [place] [id number] [place] [address] 72070- 7778 May, [facility] [address] [place] [address] 12982- 7135 Apr, Multinodular goiter E04.2 [facility] [id number] [place] [address] 94742- 6085 06 Apr, 2017 Abnormal imaging of thyroid R94.6 ; Hypercholesterolemia E78.00 and 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.29 [facility] [id number] [place] [address] 74166- 4578 29 Mar, 2017 Abnormal imaging of thyroid R94.6 [facility] [id number] [place] [address] 37976- 9425 Mar, Chest wall mass R22.2 [facility] [id number] [place] [address] 71875- 4591 07 Mar, 2017 Type 2 diabetes mellitus with hyperglycemia, without long- term current use of insulin E11.65 ; Gastroesophageal reflux disease with esophagitis K21.0 ; Hypercholesterolemia E78.00 ; Proteinuria, unspecified R80.9 ; 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.29 ; Chest wall mass R22.2 and Precordial pain R07.2 [place] [id number] [place] [address] 83839- 4612 Feb, Recurrent major depressive disorder, in full remission F33.42 [facility] [place] [id number] [place] [address] 83759- 1838 Feb, Recurrent major depressive disorder, in full remission F33.42 and Anxiety F41.9 [facility] [id number] [place] [address] 80618- 5874 Feb, [facility] [id number] [place] [address] [id number] Jan, Dental examination Z01.20 and Dental caries K02.9 [place] [id number] [place] [address] 70705- 1539 Dec, [place] [address] [place] [address]- 1777 Dec, [facility] [id number] [place] [address] 13293- 3861 Dec, Type 2 diabetes mellitus with hyperosmolarity [...] and Stress incontinence ( female) (male) N39.3 [facility] [id number] [place] [address] [id number] Dec, Dental caries K02.9 [place] [address] 97512- 5497 November, [facility] [address] 00015- 3483 November, Essential hypertension I10 ; Other chronic pain G89.29 ; Gastroesophageal reflux disease without esophagitis K21.9 and Anxiety F41.9 [facility] [id number] [place] [address] [phone] November, Dental examination Z01.20 [facility] [id number] [place] [address] 44363- 2227 Oct, Recurrent major depressive disorder, in full remission F33.42 [facility] [id number] [place] [address] 16696- 2861 Sep, Other chronic pain G89.29 [facility] [id number] [place] [address] 86220- 1009 Sep, Other chronic pain G89.29 and Bipolar 1 disorder F31.9 [facility] [place] [address] [place] [address]- 7597 Aug, Other chronic pain G89.29 [facility] [id number] [place] [address] 06333- 0745 Jul, Gastroesophageal reflux disease without esophagitis K21.9 [facility] [place] [id number] [place] [address] 68852- 8126 Jun, Migraine without status migrainosus, not intractable, unspecified migraine type G43.909 [facility] [place] [address] [place] [address] 99124- 8971 Jun, Type 2 diabetes mellitus with hyperosmolarity [...] ; Essential hypertension I10 and Hypercholesterolemia E78.00 [place] [id number] [place] [address] 35053- 8664 May, [place] [id number] [place] [address] 69453- 0451 Apr, Edema, unspecified type R60.9 ; Type [...] Z23 and Stress incontinence (female) (male) N39.3 [place] [id number] [place] [address] 99988- 0383 Apr, [facility] [address] [place] [address] 58799- 6955 Mar, Headache above the eye region R51 ; Lumbago with sciatica, unspecified side M54.40 ; Edema, unspecified type R60.9 and Migraine without status migrainosus, not intractable, unspecified migraine type G43.909 [facility] [id number] [place] [address] 37658- 0484 Mar, Chronic obstructive pulmonary disease, unspecified COPD type J44.9 ; Type 2 diabetes mellitus with hyperosmolarity without coma, without long-term current use of insulin E11.00 ; Other chronic pain G89.29 ; Migraine without status migrainosus, not intractable, unspecified migraine type G43.909 ; Left-sided chest wall pain R07.89 and Anxiety about health F41.8 [place] [id number] [place] [address] 69411- 6667 Mar, [facility] [id number] [place] [address] 70856- 7255 Mar, [place] [id number] [place] [address] 55808- 9746 Mar, [facility] [id number] [place] [address] 84331- 7377 Feb, [place] [id number] [place] [address] 00531- 8252 Feb, [place] [id number] [place] [address] 54259- 1531 Feb, Chronic fatigue R53.82 ; Lumbago with sciatica, unspecified side M54.40 ; Gastroesophageal reflux disease with esophagitis K21.0 ; Other chronic pain G89.29 ; Morbid obesity due to excess calories E66.01 ; Migraine without status migrainosus, not intractable, unspecified migraine type G43.909 and Edema, unspecified type R60.9 [facility] [address] [place] [address] [id number] Feb, Dental examination Z01.20 [facility] [address] [address] 2546 Feb, [facility] [address] [place] [address] 17007 2546 Feb, Type 2 diabetes mellitus with hyperosmolarity without coma, without long-term current use of insulin E11.00 ; Chronic fatigue R53.82 ; Gastroesophageal reflux disease with esophagitis K21.0 ; Morbid obesity due to excess calories E66.01 ; Lumbago with sciatica, unspecified side M54.40 and Other chronic pain G89.29 [facility] [address] [place] [address] 11129 2546 Feb, Type 2 diabetes mellitus with hyperosmolarity without coma, without long-term current use of insulin E11.00 ; Chronic fatigue R53.82 ; Gastroesophageal reflux disease with esophagitis K21.0 ; Morbid obesity due to excess calories E66.01 ; Lumbago with sciatica, unspecified side M54.40 and Other chronic pain G89.29 [facility] [address] [id number] Feb, Dental examination Z01.20 [facility] [address] [address] 2546 Jan, [facility] [address] [address] 2546 Mar, [facility] [id number] [place] [address] [id number] Feb, Dental examination V72.2 [facility] [address] [address]- 9186 Oct, [facility] [id number] [place] [address] 64921 2546 Oct, [facility] [address] [address]- 5416 Aug, [facility] [address] [facility] [id number] [place] [address]- 7038 Aug, [facility] [place] [facility] [address] [id number] [place] [address]- 8043 Jul, [facility] [place] [facility] [address] [id number] [place] [address]- 0746 Jul, [facility] [place] [facility] [address] [id number] [place] 3236 Jun, [facility] [place] [facility] [address] [id number] [place] [address]- 3490 Jun, [facility] [place] [facility] [address] [id number] [place] [address]- 8782 Jun, [facility] [place] [facility] [address] [id number] [place] [address]- 1957 Jun, [facility] [place] [facility] [address] [id number] [place] [address]- 2111 Jun, [facility] [place] [facility] [address] [id number] [place] [address]- 6511 Jun, [facility] [place] [facility] [address] [id number] [place] [address]- 5838 Jun, [facility] [place] [facility] [address] [id number] [place] [address]- 4730 Jun, [facility] [place] [facility] [address] [id number] [place] [address]- 4906 Jun, [facility] [place] [facility] [address] [id number] [place] [address]- 2546 Jun, [facility] [place] [facility] [address] [id number] [place] 8366 Jun, [facility] [place] [facility] [address] [id number] [place] [address]- 0416 Jun, [facility] [place] [facility] [address] [id number] [place] [address]- 6352 Jun, [facility] [place] [facility] [address] [id number] [place] [address]- 3355 May, [facility] [place] [facility] [address] [id number] [place] [address]- 6928 May, [facility] [place] [facility] [address] [id number] [place] 7627 May, [facility] [place] [facility] [address] [id number] [place] [address]- 4808 May, [facility] [place] [facility] [address] [id number] [place] [address]- 6588 Apr, [facility] [place] [facility] [address] [id number] [place] [address]- 0986 Apr, [facility] [place] [facility] [address] [id number] [place] [address]- 9907 Apr, [facility] [place] [facility] [address] [id number] [place] [address]- 9568 Apr, [facility] [place] [facility] [address] [id number] [place] [address]- 5266 Apr, [facility] [place] [facility] [address] [id number] [place] [address]- 7251 Apr, [facility] [place] [facility] [address] [id number] [address]- 3905 Apr, [facility] [place] [facility] [address] [id number], [place] [address]- 8216 Apr, [facility] [place] [facility] [address] [id number] [place] [address]- 0481 Apr, [facility] [place] [facility] [address] [id number] 9750 Apr, [facility] [place] [facility] [address] [id number] [place] [address]- 9847 Mar, [facility] [place] [facility] [address] [facility] [id number] [place] [address]- 7075 Mar, [facility] [address] [facility] [id number] [address]- 8607 Feb, [facility] [id number] [address]- 5711 Feb, [facility] [id number] 3828 Feb, [facility] [id number] [address]- 0601 Feb, [facility] [id number] 2961 Jan, [facility] [id number] [address]- 5274 Jan, IMMUNIZATIONS No Known Immunizations SOCIAL HISTORY Never Assessed REASON FOR VISIT Diabetes/cardiology f/u -- clyde gutierrez PLAN OF CARE Activity Details Follow Up 3 Months Reason:DMII VITAL SIGNS Height 68 in 2018-03-18 Weight 287.0 lbs 2018-03-18 Temperature 98.0 degrees Fahrenheit 2018-03-18 Heart Rate 80 bpm 2018-03-18 Respiratory Rate 20 2018-03-18 BMI 43.63 kg/m2 2018-03-18 Blood pressure systolic 136 mmHg 2018-03-18 Blood pressure diastolic 82 mmHg 2018-03-18 MEDICATIONS Medication Instructions Dosage Frequency Start Date End Date Duration Status Atorvastatin Calcium 10MG TAKE ONE TABLET BY MOUTH ONCE DAILY Active Omeprazole 20MG TAKE ONE CAPSULE BY MOUTH ONCE DAILY Active Metformin HCl 1000 MG Orally Twice a day 1 tablet with meals 12h Active Propranolol HCl 20 mg Orally Twice a day 1 tablet 12h 30 days Active Tizanidine HCl 2MG TAKE ONE TABLET BY MOUTH THREE TIMES DAILY NEEDED Active Abilify 10 mg Orally Once a day 1 tablet 24h Active Baby Aspirin 81 MG Orally Once a day 1 tablet 24h Active Blood Glucose Monitor System w/Device as directed Jul, Not-Taking Gabapentin 600MG Orally Three times a day 2 tablets 8h Active Albuterol Sulfate HFA 108 (90 Base) MCG/ACT Inhalation every 4 hrs 2 puffs as needed 4h Active Blood Glucose Test - In Vitro 2 times a day DX: E11.65 test blood sugar Jul, Not-Taking Lisinopril 10 mg Orally Once a day 1 tablet 24h Mar, Active Nicotine 21 MG/24HR Transdermal Once a day 1 patch to skin 24h Feb, Apr, 42 days Active Topiramate 50MG TAKE THREE TABLETS BY MOUTH TWICE DAILY Active VESIcare 10 MG Orally Once a day 1 tablet 24h Active Breo Ellipta 200-25 MCG/INH Inhalation Once a day 1 puff 24h Active Sumatriptan Succinate 100 mg Orally Once a day 1 tablet as needed 24h 30 days Active RA Nicotine Gum 4 MG Mouth/Throat 12 times per day 1 piece as needed Feb, Aug, 42 days Active RESULTS Name Result Date Reference Range A1C (IN HOUSE) 2018-03-18 A1C IN HOUSE 6.0 4.3 - 5.6 % Previous A1c 6.3 Lot [id number] Exp date 09/2019 PROCEDURES Procedure Date Ordered Result Body Site GLYCATED HEMOGLOBIN TEST Mar 18, 2018 [facility] VISIT ESTABLISHED PATIENT Mar 18, 2018 INSTRUCTIONS MEDICATIONS ADMINISTERED No Known Medications MEDICAL [...] Hospitalization History psychiatric stay s/p overdose in [place] in 2006 Hospitalization History chest pain and UTI 02/2017 Hospitalization History [facility]- UTI 11/23/2017
--- OUTSIDE RECORDS SUMMARY | 2018-04-14 19:05 | XMS REPORT ---
Author Author ASHLEY KEE Organization [facility] Address [address] [place] [address] Care Team Providers Care Targeteer Name Role Phone ASHLEY KEE Unavailable PROBLEMS Type Condition ICD9-CM Code XBM87-HO Code Onset Dates Condition Status SNOMED Code Problem Essential hypertension I10 Active 12638631 Problem Recurrent major depressive disorder, in full remission F33.42 Active 067116975 Problem Anxiety F41.9 Active 64351010 Problem Chronic migraine without aura without status migrainosus, not intractable G43.709 Active 972585657 Problem Chronic obstructive pulmonary disease, unspecified COPD type J44.9 Active 00239923 Problem Mixed incontinence urge and stress N39.46 Active 336638490 Problem Obstructive sleep apnea syndrome G47.33 Active 25113531 Problem 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 Active 7542106268595251 Problem Proteinuria, unspecified R80.9 Active 32605985 Problem Type 2 diabetes mellitus with hyperglycemia, without long-term current use of insulin E11.65 Active 21917971 Problem Multinodular goiter E04.2 Active 820313828 Problem 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.29 Active 181879738 Problem Precordial pain R07.2 Active 68397676 Problem Lumbago with sciatica, unspecified side M54.40 Active 367255951 Problem CPAP (continuous positive airway pressure) dependence Z99.89 Active 408924480 Problem Primary osteoarthritis of left knee M17.12 Active 667098120048637 Problem Gastroesophageal reflux disease with esophagitis K21.0 Active 294507036 Problem Chronic fatigue R53.82 Active 33047824 Problem Other chronic pain G89.29 Active 80699071 Problem Hypercholesterolemia E78.00 Active 61113084 Problem Morbid obesity due to excess calories E66.01 Active 426807658 Problem Bipolar 1 disorder F31.9 Active 588844138 ALLERGIES Substance Reaction Event Type Date Status Penicillin V Potassium Unknown Drug Allergy Jan, Active Iodine Unknown Drug Allergy Jan, Active ENCOUNTERS Encounter Location Date Diagnosis [facility] [facility] [id number] [place] [address] 67204- 3531 Apr, [place] [id number] [place] [address] 27266- 0354 Feb, Type 2 diabetes mellitus with hyperglycemia, without long- term current use of insulin E11.65 ; Viral upper respiratory tract infection J06.9 ; Tobacco use Z72.0 ; BMI 40.0-44.9, adult Z68.41 and Food insecurity Z59.4 [place] [id number] [place] [address] 38603- 1779 Jan, Recurrent major depressive disorder, in full remission F33.42 and Anxiety F41.9 [facility] [facility] [address] 21890- 8243 Jan, Recurrent major depressive disorder, in full remission F33.42 [facility] [id number] [place] [address] 72262- 9962 November, [place] [id number] [place] [address] 46148- 3464 November, Chronic migraine without aura without status migrainosus, not intractable G43.709 [facility] [facility] [id number] [place] [address] 48469- 9561 November, Type 2 diabetes mellitus with hyperglycemia, without long- term current use of insulin E11.65 ; Dysuria R30.0 ; Acute cystitis without hematuria N30.00 ; Lumbago with sciatica, unspecified side M54.40 ; Other chronic pain G89.29 ; Chronic obstructive pulmonary disease, unspecified COPD type J44.9 ; Chest pain, unspecified type R07.9 ; Absent pedal pulses R09.89 and BMI 40.0-44.9, adult Z68.41 [facility] [place] [id number] [place] [address] 45016- 4722 Oct, Recurrent major depressive disorder, in full remission F33.42 and Anxiety F41.9 [facility] [facility] [id number] [place] [address] 92655- 5459 Sep, Other chronic pain G89.29 [place] [id number] [place] [id number] Aug, Other chronic pain G89.29 [place] [address] 30963- 2366 Aug, Chronic obstructive pulmonary disease, unspecified COPD [...] goiter E04.2 and BMI 40.0-44.9, adult Z68.41 [facility] [address] 24250- 6169 Aug, [place] [id number] [place] [address] 63088- 7680 Jul, Type 2 diabetes mellitus with hyperglycemia, without long- term current use of insulin E11.65 [facility] [id number] [place] [address] 86846- 2230 Jul, Type 2 diabetes mellitus with hyperglycemia, without long- term current use of insulin E11.65 [facility] [address] 91960- 1162 Jul, [place] [id number] [place] [address] 00459- 4732 Jul, Type 2 diabetes mellitus with hyperglycemia, [...] immunization Z23 and BMI 40.0-44.9, adult Z68.41 [facility] [address] 38247- 3117 Jun, Migraine without status migrainosus, not intractable, unspecified migraine type G43.909 ; Hypercholesterolemia E78.00 and Lumbago with sciatica, unspecified side M54.40 [facility] [address] 47655- 6202 Jun, Recurrent major depressive disorder, in full remission F33.42 and Anxiety F41.9 [facility] [address] 62683- 8321 Jun, [place] [address] 58599- 5126 May, Hypercholesterolemia E78.00 ; 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.29 ; Migraine without status migrainosus , not intractable, unspecified migraine type G43.909 and Lumbago with sciatica, unspecified side M54.40 [facility] [id number] [place] [address] 90831- 4613 14 May, 2017 Multinodular goiter E04.2 [place] [address] 40126- 3173 06 May, 2017 [place] [address] 99614- 5128 13 Apr, 2017 Multinodular goiter E04.2 [place] [address] 85440- 6905 Apr, Abnormal imaging of thyroid R94.6 ; Hypercholesterolemia E78.00 and 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.29 [facility] [facility] [id number] [place] [address] 26041- 2210 29 Mar, 2017 Abnormal imaging of thyroid R94.6 [facility] [id number] [place] [address] 32524- 5037 20 Mar, 2017 Chest wall mass R22.2 [place] [id number] [place] [address] 32660- 2386 07 Mar, 2017 Type 2 diabetes mellitus with hyperglycemia, without long- term current use of insulin E11.65 ; Gastroesophageal reflux disease with esophagitis K21.0 ; Hypercholesterolemia E78.00 ; Proteinuria, unspecified R80.9 ; 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.29 ; Chest wall mass R22.2 and Precordial pain R07.2 [place] [id number] [place] [address] 24100- 4012 Feb, Recurrent major depressive disorder, in full remission F33.42 [place] [id number] [place] [address] 37473- 5667 Feb, Recurrent major depressive disorder, in full remission F33.42 and Anxiety F41.9 [place] [id number] [place] [address] 39588- 5885 Feb, [facility] [id number] [place] [address] [id number] Jan, Dental examination Z01.20 and Dental caries K02.9 [place] [id number] [place] [address] 17973- 9129 Dec, [place] [address] 84489- 5327 Dec, [place] [id number] [place] [address] 79045- 0151 Dec, Type 2 diabetes mellitus with hyperosmolarity [...] and Stress incontinence ( female) (male) N39.3 [facility] [id number] [place] [address] [id number] Dec, Dental caries K02.9 [place] [address] 90915- 6803 November, [place] [address] 84405- 2080 November, Essential hypertension I10 ; Other chronic pain G89.29 ; Gastroesophageal reflux disease without esophagitis K21.9 and Anxiety F41.9 [facility] [id number] [place] [address] [phone] November, Dental examination Z01.20 [facility] [address] 40636- 4715 Oct, Recurrent major depressive disorder, in full remission F33.42 [facility] [address] 63776- 5634 Sep, Other chronic pain G89.29 [facility] [id number] [place] [address] 75117- 6189 Sep, Other chronic pain G89.29 and Bipolar 1 disorder F31.9 [facility] [address] 38894- 6486 Aug, Other chronic pain G89.29 [facility] [address] 49079- 7928 Jul, Gastroesophageal reflux disease without esophagitis K21.9 [place] [address] [place] [address] 57531- 9211 Jun, Migraine without status migrainosus, not intractable, unspecified migraine type G43.909 [place] [id number] [place] [address] 80545- 2604 Jun, Type 2 diabetes mellitus with hyperosmolarity [...] ; Essential hypertension I10 and Hypercholesterolemia E78.00 [place] [id number] [place] [address] 75066- 9520 May, [place] [id number] [place] [address] 70356- 6981 Apr, Edema, unspecified type R60.9 ; Type [...] Z23 and Stress incontinence (female) (male) N39.3 [place] [id number] [place] [address] 19856- 6336 Apr, [place] [id number] [place] [address] 03752- 9041 Mar, Headache above the eye region R51 ; Lumbago with sciatica, unspecified side M54.40 ; Edema, unspecified type R60.9 and Migraine without status migrainosus, not intractable, unspecified migraine type G43.909 [facility] [id number] [place] [address] 31058- 5646 Mar, Chronic obstructive pulmonary disease, unspecified COPD type J44.9 ; Type 2 diabetes mellitus with hyperosmolarity without coma, without long-term current use of insulin E11.00 ; Other chronic pain G89.29 ; Migraine without status migrainosus, not intractable, unspecified migraine type G43.909 ; Left-sided chest wall pain R07.89 and Anxiety about health F41.8 [facility] [id number] [place] [address] 99664- 9224 Mar, [facility] [address] 55816- 0400 Mar, [facility] [address] 53702- 0088 Mar, [facility] [id number] [place] [address] 08255- 3491 Feb, [facility] [address] 37151- 7393 Feb, [facility] [id number] [place] [address] 71100- 6243 Feb, Chronic fatigue R53.82 ; Lumbago with sciatica, unspecified side M54.40 ; Gastroesophageal reflux disease with esophagitis K21.0 ; Other chronic pain G89.29 ; Morbid obesity due to excess calories E66.01 ; Migraine without status migrainosus, not intractable, unspecified migraine type G43.909 and Edema, unspecified type R60.9 [facility] [id number] [place] [address] [id number] Feb, Dental examination Z01.20 [facility] [id number] [place] [address] 20059- 5866 Feb, [facility] [address] 12298 2546 Feb, Type 2 diabetes mellitus with hyperosmolarity without coma, without long-term current use of insulin E11.00 ; Chronic fatigue R53.82 ; Gastroesophageal reflux disease with esophagitis K21.0 ; Morbid obesity due to excess calories E66.01 ; Lumbago with sciatica, unspecified side M54.40 and Other chronic pain G89.29 [facility] [id number] [place] [address] 08647- 6546 Feb, Type 2 diabetes mellitus with hyperosmolarity without coma, without long-term current use of insulin E11.00 ; Chronic fatigue R53.82 ; Gastroesophageal reflux disease with esophagitis K21.0 ; Morbid obesity due to excess calories E66.01 ; Lumbago with sciatica, unspecified side M54.40 and Other chronic pain G89.29 [facility] [address] [id number] Feb, Dental examination Z01.20 [facility] [id number] [place] [address] 96211- 5586 Jan, [facility] [id number] [place] [address] 13214- 4106 Mar, [facility] [id number] [place] [address] [id number] Feb, Dental examination V72.2 [facility] [address] [address] 4884 Oct, [facility] [id number] [place] [address] [id number]- 5406 Oct, [facility] [id number] [place] [address] 00982- 5064 Aug, [facility] [id number] [place] [address] 097781- 0756 Aug, [facility] [address] [place] [address] 82927- 2966 Jul, [facility] [place] [facility] [address] [id number] [place] [address]- 1441 Jul, [facility] [place] [facility] [address] [id number] [place] [address]- 0726 Jun, [facility] [place] [facility] [address] [id number] [place] [address]- 9716 Jun, [facility] [place] [facility] [address] [id number] [place] [address]- 1076 Jun, [facility] [place] [facility] [address] [id number] [place] [address]- 2436 Jun, [facility] [place] [facility] [address] [id number] [place] [address]- 3866 Jun, [facility] [place] [facility] [address] [id number] [place] [address]- 5428 Jun, [facility] [place] [facility] [address] [id number] [place] [address]- 2770 Jun, [facility] [place] [facility] [address] [id number] [place] [address]- 2936 Jun, [facility] [place] [facility] [address] [id number] [place] [address]- 9605 Jun, [facility] [place] [facility] [address] [id number] [place] [address]- 1692 Jun, [facility] [place] [facility] [address] [id number] [place] [address]- 9244 Jun, [facility] [place] [facility] [address] [id number] [place] [address]- 3926 Jun, [facility] [place] [facility] [address] [id number] [place] [address]- 6736 Jun, [facility] [place] [facility] [address] [id number] [place] [address]- 7812 May, [facility] [place] [facility] [address] [id number] [place] [address]- 7052 May, [facility] [place] [facility] [address] [id number] [place] 6251 May, [facility] [place] [facility] [address] [id number] [place] [address]- 8218 May, [facility] [place] [facility] [address] [id number] [place] 6512 Apr, [facility] [place] [facility] [address] [id number] [place] [address]- 5837 Apr, [facility] [place] [facility] [address] [id number] [place] [address]- 2748 Apr, [facility] [place] [facility] [address] [id number] [place] [address]- 9002 Apr, [facility] [place] [facility] [address] [id number] [place] [address]- 9823 Apr, [facility] [place] [facility] [address] [id number] [place] [address]- 3739 Apr, [facility] [place] [facility] [address] [id number] [place] [address]- 9863 Apr, [facility] [place] [facility] [address] [id number] [place] [address]- 2452 Apr, [facility] [place] [facility] [address] [id number], [place] [address]- 6867 Apr, [facility] [place] [facility] [address] [id number], [place] [address]- 2216 Apr, [facility] [place] [facility] [address] [id number] [place] [address]- 7843 Mar, [facility] [place] [facility] [address] [id number] [place] [address]- 3239 16 Mar, 2014 [facility] [place] [facility] [address] [id number] [place] [address]- 9775 Feb, [facility] [place] [facility] [address] [facility] [id number] [place] [address]- 2364 Feb, [facility] [address] [facility] [id number] [address]- 4173 Feb, [facility] [address] [facility] [id number] 8274 Feb, [facility] [address] [facility] [id number] 6008 Jan, [facility] [address] [facility] [id number] [address]- 0859 Jan, IMMUNIZATIONS No Known Immunizations SOCIAL HISTORY Never Assessed REASON FOR VISIT f/u Rashad PLAN OF CARE Activity Details Follow Up 3 Months Reason: f/u VITAL SIGNS Height 68 in 2018-01-28 Weight 268.4 lbs 2018-01-28 Heart Rate 88 bpm 2018-01-28 Respiratory Rate 22 2018-01-28 BMI 40.81 kg/m2 2018-01-28 Blood pressure systolic 118 mmHg 2018-01-28 Blood pressure diastolic 70 mmHg 2018-01-28 MEDICATIONS Medication Instructions Dosage Frequency Start Date End Date Duration Status Sumatriptan Succinate 100 mg Orally Once a day 1 tablet as needed 24h 30 days Active Gabapentin 600 MG Orally Three times a day 2 tablets 8h 30 Active VESIcare 10 MG Orally Once a day 1 tablet 24h Active Topiramate 50MG TAKE THREE TABLETS BY MOUTH TWICE DAILY Active Atorvastatin Calcium 10MG TAKE ONE TABLET BY MOUTH ONCE DAILY Active Blood Glucose Monitor System w/Device as directed Jul, Not-Taking Naproxen 500 mg Orally 2 times a day 1 tablet as needed 12h 30 days Not-Taking Propranolol HCl 20 mg Orally Twice a day 1 tablet 12h 30 days Active Tizanidine HCl 2MG TAKE ONE TABLET BY MOUTH THREE TIMES DAILY NEEDED Active Omeprazole 20MG TAKE ONE CAPSULE BY MOUTH ONCE DAILY Active Macrobid 100 MG Orally every 12 hrs 1 capsule with food 12h Not- Taking Metformin HCl 1000 MG Orally Twice a day 1 tablet with meals 12h Active Lisinopril 10 mg Orally Once a day 1 tablet 24h Mar, Active Blood Glucose Test - In Vitro 2 times a day DX: E11.65 test blood sugar Jul, Not-Taking Abilify 10 mg Orally Once a day 1 tablet 24h Active Hydrocodone-Acetaminophen 5-325 MG Orally every 6 hrs 1 tablet as needed 6h Not-Taking RESULTS No Results PROCEDURES Procedure Date Ordered Result Body Site [facility] VISIT ESTABLISHED PATIENT January 28, 2018 INSTRUCTIONS MEDICATIONS ADMINISTERED No Known Medications [...] chest pain and UTI 02/2017 Hospitalization History [facility]- UTI 11/23/2017
--- OUTSIDE RECORDS SUMMARY | 2018-04-14 19:05 | XMS REPORT ---
Author Author ASHLEY KEE Organization [facility] Address [address] [place] [address] Care Team Providers Care Waterproof Material Folder Name Role Phone ASHLEY KEE Unavailable PROBLEMS Type Condition ICD9-CM Code ZYV42-PN Code Onset Dates Condition Status SNOMED Code Problem Essential hypertension I10 Active 72020921 Problem Recurrent major depressive disorder, in full remission F33.42 Active 458990214 Problem Anxiety F41.9 Active 37627896 Problem Chronic migraine without aura without status migrainosus, not intractable G43.709 Active 534055274 Problem Chronic obstructive pulmonary disease, unspecified COPD type J44.9 Active 29501582 Problem Mixed incontinence urge and stress N39.46 Active 552988016 Problem Obstructive sleep apnea syndrome G47.33 Active 22823264 Problem 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 Active [id number] Problem Proteinuria, unspecified R80.9 Active 22179919 Problem Type 2 diabetes mellitus with hyperglycemia, without long-term current use of insulin E11.65 Active 31706811 Problem Multinodular goiter E04.2 Active 123942172 Problem 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.29 Active 516867915 Problem Precordial pain R07.2 Active 90249118 Problem Lumbago with sciatica, unspecified side M54.40 Active 955535523 Problem CPAP (continuous positive airway pressure) dependence Z99.89 Active 835156453 Problem Primary osteoarthritis of left knee M17.12 Active 290944635509352 Problem Gastroesophageal reflux disease with esophagitis K21.0 Active 087112279 Problem Chronic fatigue R53.82 Active 60524992 Problem Other chronic pain G89.29 Active 14222937 Problem Hypercholesterolemia E78.00 Active 08950435 Problem Morbid obesity due to excess calories E66.01 Active 195722089 Problem Bipolar 1 disorder F31.9 Active 181240075 ALLERGIES No Information ENCOUNTERS Encounter Location Date Diagnosis [place] [id number] [place] [address] 59601- 9785 Apr, [place] [address] [address]- [address] Feb, Type 2 diabetes mellitus with hyperglycemia, without long- term current use of insulin E11.65 ; Viral upper respiratory tract infection J06.9 and Tobacco use Z72.[address] [address]- [address] Jan, Recurrent major depressive disorder, in full remission F33.42 and Anxiety F41.[address] 81061- 7152 Jan, Recurrent major depressive disorder, in full remission F33.[address] 30100- 5259 November, [address] 84[address]- [address] November, Chronic migraine without aura without status migrainosus, not intractable G43.[address] [address]- [address] November, Type 2 diabetes mellitus with hyperglycemia, without long- term current use of insulin E11.65 ; Dysuria R30.0 ; Acute cystitis without hematuria N30.00 ; Lumbago with sciatica, unspecified side M54.40 ; Other chronic pain G89.29 ; Chronic obstructive pulmonary disease, unspecified COPD type J44.9 ; Chest pain, unspecified type R07.9 ; Absent pedal pulses R09.89 and BMI 40.0-44.9, adult Z68.41 [place] [id number] [place] [address] 18326- 6814 Oct, Recurrent major depressive disorder, in full remission F33.42 and Anxiety F41.9 [place] [id number] [place] [address] 72069- 0944 Sep, Other chronic pain G89.29 [place] [id number] [place] [address] 15318- 8489 2017 Other chronic pain G89.29 [place] [id number] [place] [address] 46176- 1342 09 Aug, 2017 Chronic obstructive pulmonary disease, [...] goiter E04.2 and BMI 40.0-44.9, adult Z68.41 [place] [id number] [place] [address] 44723- 6496 Aug, [place] [id number] [place] [address] 74384- 2739 Jul, Type 2 diabetes mellitus with hyperglycemia, without long- term current use of insulin E11.65 [place] [id number] [place] [address] 08533- 9159 Jul, Type 2 diabetes mellitus with hyperglycemia, without long- term current use of insulin E11.65 [place] [id number] [place] [address] 84106- 6673 Jul, [place] [address] 5[address]18- 9874 Jul, Type 2 diabetes mellitus with hyperglycemia, [...] immunization Z23 and BMI 40.0-44.9, adult Z68.[address] 32963- 9143 Jun, Migraine without status migrainosus, not intractable, unspecified migraine type G43.909 ; Hypercholesterolemia E78.00 and Lumbago with sciatica, unspecified side M54.40 [place] [address] 04268- 0961 Jun, Recurrent major depressive disorder, in full remission F33.42 and Anxiety F41.[address] 01294- 6719 Jun, [place] [address] 34785- 6067 May, Hypercholesterolemia E78.00 ; 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.29 ; Migraine without status migrainosus , not intractable, unspecified migraine type G43.909 and Lumbago with sciatica, unspecified side M54.40 [place] [id number] [place] [address] 12125- 6823 May, Multinodular goiter E04.2 [place] [id number] [place] [address] 18975- 8259 May, [place] [address] 87675- 4915 Apr, Multinodular goiter E04.2 [place] [address] 21273- 7968 Apr, Abnormal imaging of thyroid R94.6 ; Hypercholesterolemia E78.00 and 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.29 [place] [id number] [place] [address] 60555- 0641 29 Mar, 2017 Abnormal imaging of thyroid R94.6 [place] [address] 34112- 4987 Mar, Chest wall mass R22.2 [place] [address] 77913- 8862 07 Mar, 2017 Type 2 diabetes mellitus with hyperglycemia, without long- term current use of insulin E11.65 ; Gastroesophageal reflux disease with esophagitis K21.0 ; Hypercholesterolemia E78.00 ; Proteinuria, unspecified R80.9 ; 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.29 ; Chest wall mass R22.2 and Precordial pain R07.2 [place] [id number] [place] [address] 74867- 1263 Feb, Recurrent major depressive disorder, in full remission F33.[address] 42095- 3370 Feb, Recurrent major depressive disorder, in full remission F33.42 and Anxiety F41.9 [place] [address] 14609- 1440 Feb, [facility] [id number] [place] [address] [id number] Jan, Dental examination Z01.20 and Dental caries K02.9 [place] [id number] [place] [address] 18594- 2580 Dec, [place] [id number] [place] [address] 41964- 7792 Dec, [place] [address] 19757- 1062 Dec, Type 2 diabetes mellitus with hyperosmolarity [...] and Stress incontinence ( female) (male) N39.3 [facility] [address] [place] [address] [id number] Dec, Dental caries K02.9 [facility] [address] 19188- 8546 November, [facility] [address] 83303- 7052 November, Essential hypertension I10 ; Other chronic pain G89.29 ; Gastroesophageal reflux disease without esophagitis K21.9 and Anxiety F41.9 [facility] [address] [id number] November, Dental examination Z01.20 [facility] [id number] [place] [address] 39490- 1010 Oct, Recurrent major depressive disorder, in full remission F33.42 [facility] [id number] [place] [address] 23939- 8019 Sep, Other chronic pain G89.29 [facility] [id number] [place] [address] 24620- 9326 Sep, Other chronic pain G89.29 and Bipolar 1 disorder F31.9 [facility] [id number] [place] [address] 94082- 2216 Aug, Other chronic pain G89.29 [facility] [id number] [place] [address] 55649- 9056 Jul, Gastroesophageal reflux disease without esophagitis K21.9 [facility] [id number] [place] [address] 47696- 3555 Jun, Migraine without status migrainosus, not intractable, unspecified migraine type G43.909 [place] [address] [place] [address] 45600- 7600 Jun, Type 2 diabetes mellitus with hyperosmolarity [...] ; Essential hypertension I10 and Hypercholesterolemia E78.00 [place] [id number] [place] [address] 04979- 2408 May, [place] [address] 55409- 0583 Apr, Edema, unspecified type R60.9 ; Type [...] Z23 and Stress incontinence (female) (male) N39.3 [place] [id number] [place] [address] 71113- 4195 Apr, [place] [id number] [place] [address] 38168- 4730 Mar, Headache above the eye region R51 ; Lumbago with sciatica, unspecified side M54.40 ; Edema, unspecified type R60.9 and Migraine without status migrainosus, not intractable, unspecified migraine type G43.909 [place] [id number] [place] [address] 96543- 2057 Mar, Chronic obstructive pulmonary disease, unspecified COPD type J44.9 ; Type 2 diabetes mellitus with hyperosmolarity without coma, without long-term current use of insulin E11.00 ; Other chronic pain G89.29 ; Migraine without status migrainosus, not intractable, unspecified migraine type G43.909 ; Left-sided chest wall pain R07.89 and Anxiety about health F41.8 [facility] [address] [id number] [place] [address] 20239- 5979 Mar, [facility] [id number] [place] [address] 00506- 7973 Mar, [facility] [address] [id number] [place] [address] 61036- 0116 Mar, [facility] [address] [id number] [place] [address] 27546- 1374 Feb, [place] [id number] [place] [address] 16513- 6578 Feb, [place] [id number] [place] [address] 77544- 0034 Feb, Chronic fatigue R53.82 ; Lumbago with sciatica, unspecified side M54.40 ; Gastroesophageal reflux disease with esophagitis K21.0 ; Other chronic pain G89.29 ; Morbid obesity due to excess calories E66.01 ; Migraine without status migrainosus, not intractable, unspecified migraine type G43.909 and Edema, unspecified type R60.9 [facility] [address] [place] [address] [id number] Feb, Dental examination Z01.20 [facility] [address] [id number] [place] [address] 80300- 0316 Feb, [facility] [id number] [place] [address] 79669- 0505 Feb, Type 2 diabetes mellitus with hyperosmolarity without coma, without long-term current use of insulin E11.00 ; Chronic fatigue R53.82 ; Gastroesophageal reflux disease with esophagitis K21.0 ; Morbid obesity due to excess calories E66.01 ; Lumbago with sciatica, unspecified side M54.40 and Other chronic pain G89.29 [facility] [id number] [place] [address] 201599- 7276 Feb, Type 2 diabetes mellitus with hyperosmolarity without coma, without long-term current use of insulin E11.00 ; Chronic fatigue R53.82 ; Gastroesophageal reflux disease with esophagitis K21.0 ; Morbid obesity due to excess calories E66.01 ; Lumbago with sciatica, unspecified side M54.40 and Other chronic pain G89.29 [facility] [id number] [place] [address] [id number] Feb, Dental examination Z01.20 [facility] [id number] [place] [address] 58490- 9140 Jan, [facility] [address] 21305- 1863 Mar, [facility] [id number] [place] [address] [id number] Feb, Dental examination V72.2 [facility] [id number] [place] [address] 66618- 2833 Oct, [facility] [id number] [place] [address] 93807- 8409 Oct, [facility] [id number] [place] [address] 175025- 3656 Aug, [facility] [id number] [place] [address] 132047- 2009 Aug, [facility] [address] 943809- 1026 Jul, [facility] [id number] [place] [address] 52910- 2016 Jul, [facility] [address] 96764- 8458 Jun, [facility] [place] [facility] [address] [id number] [place] [address]- 2456 Jun, [facility] [place] [facility] [address] [id number] [place]- 6926 Jun, [facility] [place] [facility] [address] [id number] [place] [address]- 4176 Jun, [facility] [place] [facility] [address] [id number] [place] [address]- 9396 Jun, [facility] [place] [facility] [address] [id number] [place] [address]- 7018 Jun, [facility] [place] [facility] [address] [id number] [place] [address]- 6100 Jun, [facility] [place] [facility] [address] [id number] [place] [address]- 9478 Jun, [facility] [place] [facility] [address] [id number] [place] [address]- 1285 Jun, [facility] [place] [facility] [address] [id number] [place] [address]- 1779 Jun, [facility] [place] [facility] [address] [id number] [place] [address]- 8685 Jun, [facility] [place] [facility] [address] [id number] [place] [address]- 1131 Jun, [facility] [place] [facility] [address] [id number] [place] [address]- 9675 Jun, [facility] [place] [facility] [address] [id number] [place] [address]- 9276 May, [facility] [place] [facility] [address] [id number] [place]- 8996 May, [facility] [place] [facility] [address] [id number] [place] [address]- 8137 May, [facility] [place] [facility] [address] [id number] [place] [address]- 1767 May, [facility] [place] [facility] [address] [id number] [place] [address]- 2154 Apr, [facility] [place] [facility] [address] [id number] [place] [address]- 3211 Apr, [facility] [place] [facility] [address] [id number] [place] [address]- 8612 Apr, [facility] [place] [facility] [address] [id number] [place] [address]- 2228 Apr, [facility] [place] [facility] [address] [id number] [place] [address]- 4922 Apr, [facility] [place] [facility] [address] [id number] [place]- 9458 Apr, [facility] [place] [facility] [address] [id number] [place] [address]- 6503 Apr, [facility] [place] [facility] [address] [id number] [place] [address]- 4050 Apr, [facility] [place] [facility] [address] [id number] [place] [address]- 7113 Apr, [facility] [place] [facility] [address] [id number] [place] [address]- 9260 Apr, [facility] [place] [facility] [address] [id number] [place] [address]- 2511 Mar, [facility] [place] [facility] [address] [id number] [place] [address]- 1744 Mar, [facility] [place] [facility] [address] [id number] [place] [address]- 4106 Feb, [facility] [place] [facility] [address] [id number] [place] [address]- 0636 Feb, [facility] [place] [facility] [address] [id number] [place] [address]- 7329 Feb, [facility] [address] [facility] [id number] [place] [address]- 2546 Feb, [facility] [address] [facility] [id number] [place] [address]- 2546 Jan, [facility] [address] [facility] [id number] [place] [address]- 2546 Jan, IMMUNIZATIONS No Known Immunizations SOCIAL HISTORY Never Assessed REASON FOR VISIT Medication refill request PLAN OF CARE VITAL SIGNS MEDICATIONS [...] and UTI 02/2017 Hospitalization History [facility]- UTI 11/23/2017
--- OUTSIDE RECORDS SUMMARY | 2018-04-14 19:06 | XMS REPORT ---
Author Author MEHDI OBINNA [facility] Address [address] [place] [address] Care Team Providers Care Direct Care Professional Name Role Phone MEHDISHARON KRUSEHANY Unavailable PROBLEMS Type Condition ICD9-CM Code BXL53-QG Code Onset Dates Condition Status SNOMED Code Problem Essential hypertension I10 Active 10026000 Problem Recurrent major depressive disorder, in full remission F33.42 Active 463620498 Problem Anxiety F41.9 Active 18295792 Problem Chronic migraine without aura without status migrainosus, not intractable G43.709 Active 409091012 Problem Chronic obstructive pulmonary disease, unspecified COPD type J44.9 Active 35435699 Problem Mixed incontinence urge and stress N39.46 Active 994079561 Problem Obstructive sleep apnea syndrome G47.33 Active 02024685 Problem 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 Active 2878369670137073 Problem Proteinuria, unspecified R80.9 Active 56727501 Problem Type 2 diabetes mellitus with hyperglycemia, without long-term current use of insulin E11.65 Active 28114054 Problem Multinodular goiter E04.2 Active 750333760 Problem 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.29 Active 266153465 Problem Precordial pain R07.2 Active 67388572 Problem Lumbago with sciatica, unspecified side M54.40 Active 683772243 Problem CPAP (continuous positive airway pressure) dependence Z99.89 Active 437375434 Problem Primary osteoarthritis of left knee M17.12 Active 216826052319564 Problem Gastroesophageal reflux disease with esophagitis K21.0 Active 736583052 Problem Chronic fatigue R53.82 Active 53214149 Problem Other chronic pain G89.29 Active 99483081 Problem Hypercholesterolemia E78.00 Active 29055743 Problem Morbid obesity due to excess calories E66.01 Active 468234596 Problem Bipolar 1 disorder F31.9 Active 525694209 ALLERGIES No Information ENCOUNTERS Encounter Location Date Diagnosis [place] [address] [address] Apr, [place] [address] [place] [id number] [place] [address] 65567- 5406 Feb, [place] [address] [place] [address] [id number] [place] [address] 46396- 4231 Jan, Recurrent major depressive disorder, in full remission F33.42 and Anxiety F41.9 [facility] [address] [place] [address] [id number] [place] [address] 07183- 1158 Jan, Recurrent major depressive disorder, in full remission F33.42 [place] [address] [place] [id number] [place] [address] 90331- 6339 November, [place] [address] [place] [address] [id number] [place] [address] 43864- 4376 November, Chronic migraine without aura without status migrainosus, not intractable G43.709 [place] [address] [place] [address] [id number] [place] [address] 51444- 0711 November, Type 2 diabetes mellitus with hyperglycemia, without long- term current use of insulin E11.65 ; Dysuria R30.0 ; Acute cystitis without hematuria N30.00 ; Lumbago with sciatica, unspecified side M54.40 ; Other chronic pain G89.29 ; Chronic obstructive pulmonary disease, unspecified COPD type J44.9 ; Chest pain, unspecified type R07.9 ; Absent pedal pulses R09.89 and BMI 40.0-44.9, adult Z68.41 [place] [id number] [place] [address] 11865- 0558 Oct, Recurrent major depressive disorder, in full remission F33.42 and Anxiety F41.9 [place] [address] [place] [address] [id number] [place] [address] 08995- 0534 Sep, Other chronic pain G89.29 [facility] [address] [place] [address] [id number] [place] [address] 02848- 6862 Aug, Other chronic pain G89.29 [place] [address] [place] [id number] [place] [address] 69177- 7214 Aug, Chronic obstructive pulmonary disease, unspecified COPD [...] goiter E04.2 and BMI 40.0-44.9, adult Z68.41 [place] [address] [place] [id number] [place] [address] 09768- 4639 Aug, [place] [address] [place] [id number] [place] [address] 47699- 6023 Jul, Type 2 diabetes mellitus with hyperglycemia, without long- term current use of insulin E11.65 [place] [address] [place] [id number] [place] [address] 69485- 1274 Jul, Type 2 diabetes mellitus with hyperglycemia, without long- term current use of insulin E11.65 [place] [address] [place] [id number] [place] [address] 84119- 6698 Jul, [place] [address] 59760- 0983 Jul, Type 2 diabetes mellitus with hyperglycemia, [...] immunization Z23 and BMI 40.0-44.9, adult Z68.41 [place] [address] 30888- 8765 Jun, Migraine without status migrainosus, not intractable, unspecified migraine type G43.909 ; Hypercholesterolemia E78.00 and Lumbago with sciatica, unspecified side M54.40 [place] [address] 45194- 0746 Jun, Recurrent major depressive disorder, in full remission F33.42 and Anxiety F41.[address] 53753- 8964 Jun, [address] 74037- 3061 May, Hypercholesterolemia E78.00 ; 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.29 ; Migraine without status migrainosus , not intractable, unspecified migraine type G43.909 and Lumbago with sciatica, unspecified side M54.40 [place] [address] 06240- 9122 May, Multinodular goiter E04.2 [place] [address] 68298- 5100 May, [place] [address] 46070- 6035 Apr, Multinodular goiter E04.2 [place] [address] 00583- 1464 Apr, Abnormal imaging of thyroid R94.6 ; Hypercholesterolemia E78.00 and 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.29 [place] [address] 13879- 8543 Mar, Abnormal imaging of thyroid R94.6 [place] [id number] [place] [address] 78196- 7036 Mar, Chest wall mass R22.2 [place] [address] [place] [id number] [place] [address] 31246- 5004 Mar, Type 2 diabetes mellitus with hyperglycemia, without long- term current use of insulin E11.65 ; Gastroesophageal reflux disease with esophagitis K21.0 ; Hypercholesterolemia E78.00 ; Proteinuria, unspecified R80.9 ; 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.29 ; Chest wall mass R22.2 and Precordial pain R07.2 [place] [address] [place] [id number] [place] [address] 12276- 1523 Feb, Recurrent major depressive disorder, in full remission F33.42 [place] [address] [place] [id number] [place] [address] 42500- 0046 Feb, Recurrent major depressive disorder, in full remission F33.42 and Anxiety F41.9 [place] [address] [place] [id number] [place] [address] 68021- 2609 Feb, [facility] [address] [place] [address] [id number] Jan, Dental examination Z01.20 and Dental caries K02.9 [address] [place] [address] 71200- 7502 Dec, [place] [address] [place] [id number] [place] [address] 45741- 5163 Dec, [place] [address] [place] [id number] [place] [address] 44050- 6558 Dec, Type 2 diabetes mellitus with hyperosmolarity [...] and Stress incontinence ( female) (male) N39.3 [facility] [address] [place] [address] [id number] Dec, Dental caries K02.9 [facility] [address] [place] [address] [id number] [place] [address] 06075- 5326 November, [facility] [address] [place] [id number]- 5886 November, Essential hypertension I10 ; Other chronic pain G89.29 ; Gastroesophageal reflux disease without esophagitis K21.9 and Anxiety F41.9 [facility] [address] [place] [id number] [place] [address] [id number] November, Dental examination Z01.20 [facility] [address] [place] [address] [id number] [place] [address] 01472- 4534 Oct, Recurrent major depressive disorder, in full remission F33.42 [facility] [address] [place] [address] [id number] [place] [address] 10584- 7016 Sep, Other chronic pain G89.29 [facility] [address] [place] [address] [id number] [place] [address] 26818- 4756 Sep, Other chronic pain G89.29 and Bipolar 1 disorder F31.9 [facility] [address] [place] [address] [id number] [place] [address] 09546 2546 Aug, Other chronic pain G89.29 [facility] [address] [place] [address] [id number] [place] [address] 35790- 1053 Jul, Gastroesophageal reflux disease without esophagitis K21.9 [facility] [address] [place] [address] [id number] [place] [address] 85265- 1743 Jun, Migraine without status migrainosus, not intractable, unspecified migraine type G43.909 [facility] [address] [place] [address] [id number] [place] [address] 56269- 0308 Jun, Type 2 diabetes mellitus with hyperosmolarity [...] ; Essential hypertension I10 and Hypercholesterolemia E78.00 [place] [address] 10257- 6718 May, [place] [address] 89854- 5227 Apr, Edema, unspecified type R60.9 ; Type [...] Z23 and Stress incontinence (female) (male) N39.3 [place] [address] [place] [id number] [place] [address] 86504- 3025 Apr, [place] [address] 54179- 4783 Mar, Headache above the eye region R51 ; Lumbago with sciatica, unspecified side M54.40 ; Edema, unspecified type R60.9 and Migraine without status migrainosus, not intractable, unspecified migraine type G43.909 [place] [address] [place] [id number] [place] [address] 13516- 2143 Mar, Chronic obstructive pulmonary disease, unspecified COPD type J44.9 ; Type 2 diabetes mellitus with hyperosmolarity without coma, without long-term current use of insulin E11.00 ; Other chronic pain G89.29 ; Migraine without status migrainosus, not intractable, unspecified migraine type G43.909 ; Left-sided chest wall pain R07.89 and Anxiety about health F41.8 [facility] [address] [address]- 7802 Mar, [facility] [address] [place] [id number] [place] [address] 64006- 7038 Mar, [facility] [id number] [place] [address] 19155- 9923 Mar, [place] [address] [place] [id number] [place] [address] 93146- 9210 Feb, [place] [address] [place] [id number] [place] [address] 36943- 3718 Feb, [place] [address] [place] [id number] [place] [address] 62129- 8931 Feb, Chronic fatigue R53.82 ; Lumbago with sciatica, unspecified side M54.40 ; Gastroesophageal reflux disease with esophagitis K21.0 ; Other chronic pain G89.29 ; Morbid obesity due to excess calories E66.01 ; Migraine without status migrainosus, not intractable, unspecified migraine type G43.909 and Edema, unspecified type R60.9 [facility] [address] [place] [id number] [id number] Feb, Dental examination Z01.20 [facility] [address] [place] [address] 63131- 6826 Feb, [place] [address] [place] [address] 81184- 2646 Feb, Type 2 diabetes mellitus with hyperosmolarity without coma, without long-term current use of insulin E11.00 ; Chronic fatigue R53.82 ; Gastroesophageal reflux disease with esophagitis K21.0 ; Morbid obesity due to excess calories E66.01 ; Lumbago with sciatica, unspecified side M54.40 and Other chronic pain G89.29 [facility] [address] [place] [address] 23371- 7666 Feb, Type 2 diabetes mellitus with hyperosmolarity without coma, without long-term current use of insulin E11.00 ; Chronic fatigue R53.82 ; Gastroesophageal reflux disease with esophagitis K21.0 ; Morbid obesity due to excess calories E66.01 ; Lumbago with sciatica, unspecified side M54.40 and Other chronic pain G89.29 [facility] [address] [place] [id number] [place] [address] [id number] Feb, Dental examination Z01.20 [facility] [address] 36048- 8736 Jan, [facility] [address] [place] [id number] [place] [address] 52581- 1136 Mar, [facility] [address] [place] [id number] [place] [address] [id number] Feb, Dental examination V72.2 [facility] [address] [place] [address] [id number] [place] [address] 036081- 6257 Oct, [facility] [address] [place] [address] [id number] [place] [address] [id number]- 3466 Oct, [facility] [address] [place] [address] [id number] [place] [address] 293052- 0646 Aug, [facility] [address] [place] [id number] [place] [address] [id number]- 3186 Aug, [facility] [address] [place] [address] [id number] [place] [address] 759630- 7496 Jul, [facility] [address] [place] [address] [id number] [place] [address] 132305- 0356 Jul, [facility] [address] [place] [address] [id number] [place] [address] 97979- 4916 Jun, [facility] [address] [id number]- 6495 30 Jun, 2014 [facility] [place] [facility] [address] [id number] [place] 3481 Jun, [facility] [place] [facility] [address] [id number] [place] [address]- 4316 Jun, [facility] [place] [facility] [address] [id number] [place] [address]- 9596 Jun, [facility] [place] [facility] [address] [id number] [place] [address]- 1445 Jun, [facility] [place] [facility] [address] [id number] [place] 0177 Jun, [facility] [place] [facility] [address] [id number] [place]- 0544 Jun, [facility] [place] [facility] [address] [id number] [place] [address]- 7825 Jun, [facility] [place] [facility] [address] [id number] [place] [address]- 5442 Jun, [facility] [place] [facility] [address] [id number] [place] [address]- 7672 Jun, [facility] [place] [facility] [address] [id number] [place] [address]- 2854 Jun, [facility] [place] [facility] [address] [id number] [place] [address]- 4337 Jun, [facility] [place] [facility] [address] [id number] [place] [address]- 8198 May, [facility] [place] [facility] [address] [id number] [place] [address]- 0957 May, [facility] [place] [facility] [address] [id number] [place] [address]- 2122 May, [facility] [place] [facility] [address] [id number] [place] [address]- 1533 May, [facility] [place] [facility] [address] [id number] [place] [address]- 4462 Apr, [facility] [place] [facility] [address] [id number] [place] [address]- 4742 Apr, [facility] [place] [facility] [address] [id number] [place] [address]- 4082 Apr, [facility] [place] [facility] [address] [id number] [place] [address]- 4082 Apr, [facility] [place] [facility] [address] [id number] [place] [address]- 2280 Apr, [facility] [place] [facility] [address] [id number] [place] [address]- 5146 Apr, [facility] [place] [facility] [address] [id number] [place] [address]- 1491 Apr, [facility] [place] [facility] [address] [id number] [place] [address]- 0862 Apr, [facility] [place] [facility] [address] [id number] [place] [address]- 4840 Apr, [facility] [place] [facility] [address] [id number] [place] [address]- 8791 Apr, [facility] [place] [facility] [address] [id number] [place] [address]- 9248 Mar, [facility] [place] [facility] [address] [id number] [place] [address]- 0431 Mar, [facility] [place] [facility] [address] [id number] [place] [address]- 2117 Feb, [facility] [place] [facility] [address] [id number] [place] [address]- 3249 Feb, [facility] [place] [facility] [address] [id number] [place] [address]- 1225 Feb, [facility] [place] [facility] [address] [id number] [place] [address]- 3064 Feb, [facility] [address] [facility] [id number] [place] [address]- 6286 Jan, [facility] [address] [facility] [id number] [place] [address] 2546 Jan, IMMUNIZATIONS No Known Immunizations SOCIAL HISTORY Never Assessed REASON FOR VISIT Patient Call PLAN OF CARE VITAL SIGNS MEDICATIONS Unknown [...] Hospitalization History psychiatric stay s/p overdose in [place] in 2006 Hospitalization History chest pain and UTI 02/2017 Hospitalization History [facility]- UTI 11/23/2017
--- OUTSIDE RECORDS SUMMARY | 2018-04-14 19:06 | XMS REPORT ---
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 Name Role Phone OBINNA HARDING Unavailable PROBLEMS Type Condition ICD9-CM Code SWR69-KA Code Onset Dates Condition Status SNOMED Code Problem Essential hypertension I10 Active 90503702 Problem Recurrent major depressive disorder, in full remission F33.42 Active 513770003 Problem Anxiety F41.9 Active 87182821 Problem Chronic migraine without aura without status migrainosus, not intractable G43.709 Active 201520452 Problem Chronic obstructive pulmonary disease, unspecified COPD type J44.9 Active 87475067 Problem Mixed incontinence urge and stress N39.46 Active 588528128 Problem Obstructive sleep apnea syndrome G47.33 Active 04498827 Problem 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 Active 9452186897301983 Problem Proteinuria, unspecified R80.9 Active 46824138 Problem Type 2 diabetes mellitus with hyperglycemia, without long-term current use of insulin E11.65 Active 37614061 Problem Multinodular goiter E04.2 Active 497932698 Problem 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.29 Active 575338664 Problem Precordial pain R07.2 Active 07040024 Problem Lumbago with sciatica, unspecified side M54.40 Active 107644934 Problem CPAP (continuous positive airway pressure) dependence Z99.89 Active 107598871 Problem Primary osteoarthritis of left knee M17.12 Active 944889272596200 Problem Gastroesophageal reflux disease with esophagitis K21.0 Active 576869758 Problem Chronic fatigue R53.82 Active 56412229 Problem Other chronic pain G89.29 Active 38558147 Problem Hypercholesterolemia E78.00 Active 22419137 Problem Morbid obesity due to excess calories E66.01 Active 089406791 Problem Bipolar 1 disorder F31.9 Active 582086073 ALLERGIES Substance Reaction Event Type Date Status Penicillin V Potassium Unknown Drug Allergy November, Active Iodine Unknown Drug Allergy November, Active ENCOUNTERS Encounter Location Date Diagnosis [facility] [id number] [place] [address] 90854- 1048 Apr, [facility] [id number] [place] [address] 72157- 6812 Feb, [facility] [id number] [place] [address] 33040- 3996 Jan, Recurrent major depressive disorder, in full remission F33.42 and Anxiety F41.9 [facility] [id number] [place] [address] 98232- 1569 Jan, Recurrent major depressive disorder, in full remission F33.42 [facility] [id number] [place] [address] 53261- 6379 November, [facility] [id number] [place] [address] 87377- 7986 November, Chronic migraine without aura without status migrainosus, not intractable G43.709 [facility] [id number] [place] [address] 93205- 9665 November, Type 2 diabetes mellitus with hyperglycemia, without long- term current use of insulin E11.65 ; Dysuria R30.0 ; Acute cystitis without hematuria N30.00 ; Lumbago with sciatica, unspecified side M54.40 ; Other chronic pain G89.29 ; Chronic obstructive pulmonary disease, unspecified COPD type J44.9 ; Chest pain, unspecified type R07.9 ; Absent pedal pulses R09.89 and BMI 40.0-44.9, adult Z68.41 [facility] [id number] [place] [address] 99268- 5723 Oct, Recurrent major depressive disorder, in full remission F33.42 and Anxiety F41.9 [facility] [id number] [place] [address] 76464- 8339 Sep, Other chronic pain G89.29 [facility] [address] [place] [address]90 2017 Other chronic pain G89.29 [facility] [id number] [place] [address] 33548- 3408 Aug, Chronic obstructive pulmonary disease, unspecified COPD [...] and BMI 40.0-44.9, adult Z68.41 [facility] [id number] [place] [address] 93304- 4962 Aug, [facility] [id number] [place] [address] 25424- 5256 Jul, Type 2 diabetes mellitus with hyperglycemia, without long- term current use of insulin E11.65 [facility] [id number] [place] [address] 78022- 1536 Jul, Type 2 diabetes mellitus with hyperglycemia, without long- term current use of insulin E11.65 [facility] [id number] [place] [address] 47444- 0368 Jul, [facility] [id number] [place] [address] 46014- 4473 Jul, Type 2 diabetes mellitus with hyperglycemia, [...] immunization Z23 and BMI 40.0-44.9, adult Z68.41 [facility] [id number] [place] [address] 54975- 6683 Jun, Migraine without status migrainosus, not intractable, unspecified migraine type G43.909 ; Hypercholesterolemia E78.00 and Lumbago with sciatica, unspecified side M54.40 [facility] [address] 19253- 0971 Jun, Recurrent major depressive disorder, in full remission F33.42 and Anxiety F41.9 [facility] [address] 06316- 4121 Jun, [facility] [address] 34390- 3511 May, Hypercholesterolemia E78.00 ; 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.29 ; Migraine without status migrainosus , not intractable, unspecified migraine type G43.909 and Lumbago with sciatica, unspecified side M54.40 [facility] [id number] [place] [address] 01030- 7896 14 May, 2017 Multinodular goiter E04.2 [facility] [address] 39292- 5967 May, [facility] [address] 79929- 5853 Apr, Multinodular goiter E04.2 [facility] [address] 38543- 3168 Apr, Abnormal imaging of thyroid R94.6 ; Hypercholesterolemia E78.00 and 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.29 [facility] [address] 22286- 1948 Mar, Abnormal imaging of thyroid R94.6 [facility] [id number] [place] [address] 13663- 5622 Mar, Chest wall mass R22.2 [facility] [id number] [place] [address] 69366- 0720 Mar, Type 2 diabetes mellitus with hyperglycemia, without long- term current use of insulin E11.65 ; Gastroesophageal reflux disease with esophagitis K21.0 ; Hypercholesterolemia E78.00 ; Proteinuria, unspecified R80.9 ; 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.29 ; Chest wall mass R22.2 and Precordial pain R07.2 [facility] [id number] [place] [address] 18035- 8815 Feb, Recurrent major depressive disorder, in full remission F33.42 [facility] [address] 99328- 4912 Feb, Recurrent major depressive disorder, in full remission F33.42 and Anxiety F41.9 [facility] [id number] [place] [address] 72768- 5393 Feb, [facility] [id number] [place] [address] [id number] Jan, Dental examination Z01.20 and Dental caries K02.9 [facility] [id number] [place] [address] 59380- 6116 Dec, [facility] [address] 60005- 5143 Dec, [facility] [id number] [place] [address] 07142- 0011 Dec, Type 2 diabetes mellitus with hyperosmolarity [...] and Stress incontinence ( female) (male) N39.3 [facility] [id number] [place] [address] [id number] Dec, Dental caries K02.9 [facility] [id number] [place] [address] 13229- 2321 November, [facility] [address] 00750- 3159 November, Essential hypertension I10 ; Other chronic pain G89.29 ; Gastroesophageal reflux disease without esophagitis K21.9 and Anxiety F41.9 [facility] [id number] [place] [address] [id number] November, Dental examination Z01.20 [facility] [id number] [place] [address] 79637- 9880 Oct, Recurrent major depressive disorder, in full remission F33.42 [facility] [id number] [place] [address] 36452- 4026 Sep, Other chronic pain G89.29 [facility] [id number] [place] [address] 56353- 0136 Sep, Other chronic pain G89.29 and Bipolar 1 disorder F31.9 [facility] [id number] [place] [address] 51707- 7359 Aug, Other chronic pain G89.29 [facility] [address] 91565- 9880 Jul, Gastroesophageal reflux disease without esophagitis K21.9 [facility] [id number] [place] [address] 52510- 4271 Jun, Migraine without status migrainosus, not intractable, unspecified migraine type G43.909 [facility] [address] [place] [address] 91335- 3444 Jun, Type 2 diabetes mellitus with hyperosmolarity [...] ; Essential hypertension I10 and Hypercholesterolemia E78.[address] 59086- 6561 May, [facility] [id number] [place] [address] 81802- 4525 Apr, Edema, unspecified type R60.9 ; Type [...] Stress incontinence (female) (male) N39.3 [facility] [id number] [place] [address] 31285- 0763 Apr, [facility] [id number] [place] [address] 78619- 3590 Mar, Headache above the eye region R51 ; Lumbago with sciatica, unspecified side M54.40 ; Edema, unspecified type R60.9 and Migraine without status migrainosus, not intractable, unspecified migraine type G43.909 [facility] [id number] [place] [address] 34612- 6435 Mar, Chronic obstructive pulmonary disease, unspecified COPD type J44.9 ; Type 2 diabetes mellitus with hyperosmolarity without coma, without long-term current use of insulin E11.00 ; Other chronic pain G89.29 ; Migraine without status migrainosus, not intractable, unspecified migraine type G43.909 ; Left-sided chest wall pain R07.89 and Anxiety about health F41.8 [facility] [address] [place] [address] 34865- 6856 Mar, [facility] [id number] [place] [address] 20892- 3689 Mar, [facility] [id number] [place] [address] 96202- 1576 Mar, [facility] [id number] [place] [address] 17608- 4629 Feb, [facility] [id number] [place] [address] 57024- 8463 Feb, [facility] [id number] [place] [address] 17484- 4142 Feb, Chronic fatigue R53.82 ; Lumbago with sciatica, unspecified side M54.40 ; Gastroesophageal reflux disease with esophagitis K21.0 ; Other chronic pain G89.29 ; Morbid obesity due to excess calories E66.01 ; Migraine without status migrainosus, not intractable, unspecified migraine type G43.909 and Edema, unspecified type R60.9 [facility] [address] [place] [address] [phone] Feb, Dental examination Z01.20 [facility] [id number] [place] [address] 09658- 8294 Feb, [facility] [id number] [place] [address] 88976- 8723 Feb, Type 2 diabetes mellitus with hyperosmolarity without coma, without long-term current use of insulin E11.00 ; Chronic fatigue R53.82 ; Gastroesophageal reflux disease with esophagitis K21.0 ; Morbid obesity due to excess calories E66.01 ; Lumbago with sciatica, unspecified side M54.40 and Other chronic pain G89.29 [facility] [id number] [place] [address] 94326- 6416 Feb, Type 2 diabetes mellitus with hyperosmolarity without coma, without long-term current use of insulin E11.00 ; Chronic fatigue R53.82 ; Gastroesophageal reflux disease with esophagitis K21.0 ; Morbid obesity due to excess calories E66.01 ; Lumbago with sciatica, unspecified side M54.40 and Other chronic pain G89.29 [facility] [id number] [place] [address] [id number] Feb, Dental examination Z01.20 [facility] [id number] [place] [address] 10198- 2026 Jan, [facility] [id number] [place] [address] 97567- 2536 Mar, [facility] [id number] [place] [address] [phone] Feb, Dental examination V72.2 [facility] [id number] [place] [address] [id number]- 7535 Oct, [facility] [id number] [place] [address] [id number]- 2493 Oct, [facility] [id number] [place] [address] 530596- 1466 Aug, [facility] [id number] [place] [address] 15536- 4766 Aug, [facility] [id number] [place] [address] 86092- 0316 Jul, [facility] [id number] [place] [address] 85616- 2546 Jul, [facility] [id number] [place] [address] 89552- 0888 Jun, [facility] [place] [facility] [address] [id number] [place] [address]- 5439 Jun, [facility] [place] [facility] [address] [id number] [place] [address]- 6246 Jun, [facility] [place] [facility] [address] [id number] [place]- 0107 Jun, [facility] [place] [facility] [address] [id number] [place] [address]- 8713 Jun, [facility] [place] [facility] [address] [id number] [place] 6225 Jun, [facility] [place] [facility] [address] [id number] [place] [address]- 5218 Jun, [facility] [place] [facility] [address] [id number] [place] [address]- 6324 Jun, [facility] [place] [facility] [address] [id number] [place] [address]- 0105 Jun, [facility] [place] [facility] [address] [id number] [place] [address]- 5238 Jun, [facility] [place] [facility] [address] [id number] [place] [address]- 5640 Jun, [facility] [place] [facility] [address] [id number] [place] [address]- 8145 Jun, [facility] [place] [facility] [address] [id number] [place] [address]- 6327 Jun, [facility] [place] [facility] [address] [id number] [place] [address]- 4224 May, [facility] [place] [facility] [address] [id number] [place] [address]- 0083 May, [facility] [place] [facility] [address] [id number] [place] [address]- 7366 May, [facility] [place] [facility] [address] [id number], [place] [address]- 0022 May, [facility] [place] [facility] [address] [id number] [place] [address]- 9394 Apr, [facility] [place] [facility] [address] [id number] [place]- 9575 Apr, [facility] [place] [facility] [address] [id number] [place] [address]- 3263 Apr, [facility] [place] [facility] [address] [id number] [place] [address]- 0262 Apr, [facility] [place] [facility] [address] [id number] [place] [address]- 6079 Apr, [facility] [place] [facility] [address] [id number] [place] [address]- 0688 Apr, [facility] [place] [facility] [address] [id number] [place] [address]- 7459 Apr, [facility] [place] [facility] [address] [id number] [place] [address]- 2568 Apr, [facility] [place] [facility] [address] [id number] [place] [address]- 1422 Apr, [facility] [place] [facility] [address] [id number] [place] [address]- 4971 Apr, [facility] [place] [facility] [address] [id number] [place] [address]- 5560 Mar, [facility] [place] [facility] [address] [id number] [place] [address]- 8450 Mar, [facility] [place] [facility] [address] [id number] [place] 7811 Feb, [facility] [place] [facility] [address] [id number] [place] [address]- 4065 Feb, [facility] [place] [facility] [address] [id number] [place] [address]- 9756 Feb, [facility] [place] [facility] [address] [id number] [place] [address]- 0276 Feb, [facility] [address] [facility] [id number], [place] [address]- 9114 Jan, [facility] [address] [facility] [id number] [place] [address]- 5560 Jan, IMMUNIZATIONS No Known Immunizations SOCIAL HISTORY Never Assessed REASON FOR VISIT Diabetes--tcAydin, Dx with UTI in ER last week. Currently on antibiotics for UTI. Continues with symptoms. PLAN OF CARE Activity Details Follow Up 6 Weeks Reason:F/U Cardiology VITAL SIGNS Height 68 in 2017-11-29 Weight 273.4 lbs 2017-11-29 Temperature 98.4 degrees Fahrenheit 2017-11-29 Heart Rate 92 bpm 2017-11-29 Respiratory Rate 20 2017-11-29 BMI 41.57 kg/m2 2017-11-29 Blood pressure systolic 110 mmHg 2017-11-29 Blood pressure diastolic 82 mmHg 2017-11-29 MEDICATIONS Medication Instructions Dosage Frequency Start Date End Date Duration Status Topiramate 50MG TAKE THREE TABLETS BY MOUTH TWICE DAILY Active Abilify 10 mg Orally Once a day 1 tablet 24h Active Tizanidine HCl 2 MG Orally Three times a day 1 tablet as needed 8h 8 Jan Active Bactrim DS 800-160 MG Orally Twice a day 1 tablet 12h November,November 07 days Active VESIcare 10 MG Orally Once a day 1 tablet 24h Active Blood Glucose Test - In Vitro 2 times a day DX: E11.65 test blood sugar Jul, Active Omeprazole 20 MG Orally Once a day 1 capsule 24h Active Macrobid 100 MG Orally every 12 hrs 1 capsule with food 12h Active Sumatriptan Succinate 100 mg Orally Once a day 1 tablet as needed 24h 30 days Active Metformin HCl 1000 MG Orally Twice a day 1 tablet with meals 12h Active Atorvastatin Calcium 10 mg Orally Once a day 1 tablet 24h Feb, Active Propranolol HCl 20 MG Orally Twice a day 1 tablet 12h Active Hydrocodone-Acetaminophen 5-325 MG Orally every 6 hrs 1 tablet as needed 6h Active Gabapentin 600 MG Orally Three times a day 2 tablets 8h 30 days Active Blood Glucose Monitor System w/Device as directed Jul, Active Naproxen 500 mg Orally 2 times a day 1 tablet as needed 12h 30 days Active Lisinopril 10 mg Orally Once a day 1 tablet 24h 07 Mar, 2017 Active RESULTS No Results PROCEDURES Procedure Date Ordered Result Body Site GLYCATED HEMOGLOBIN TEST November 29, 2017 [facility] VISIT ESTABLISHED PATIENT November 29, 2017 URINALYSIS, AUTO, W/O SCOPE November 29, 2017 LAB NOT BILLED BY [facility] November 29, 2017 INSTRUCTIONS MEDICATIONS ADMINISTERED No Known Medications [...] pain and UTI 02/2017 Hospitalization History [facility] [place]- UTI 11/23/2017
--- OUTSIDE RECORDS SUMMARY | 2018-04-14 19:07 | XMS REPORT ---
Author Author ASHLEY KEE Organization [facility] [place] Address [address] [place] [address] Care Team Providers [facility] Attendant Name Role Phone ASHLEY KEE Unavailable PROBLEMS Type Condition ICD9-CM Code KXF19-DG Code Onset Dates Condition Status SNOMED Code Problem Essential hypertension I10 Active 92950944 Problem Recurrent major depressive disorder, in full remission F33.42 Active 240475288 Problem Anxiety F41.9 Active 00956344 Problem Chronic migraine without aura without status migrainosus, not intractable G43.709 Active 758930901 Problem Chronic obstructive pulmonary disease, unspecified COPD type J44.9 Active 33434005 Problem Mixed incontinence urge and stress N39.46 Active 434340421 Problem Obstructive sleep apnea syndrome G47.33 Active 18638659 Problem 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 Active 6130874788223304 Problem Proteinuria, unspecified R80.9 Active 59023285 Problem Type 2 diabetes mellitus with hyperglycemia, without long-term current use of insulin E11.65 Active 44208219 Problem Multinodular goiter E04.2 Active 232392673 Problem 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.29 Active 699558083 Problem Precordial pain R07.2 Active 54246363 Problem Lumbago with sciatica, unspecified side M54.40 Active 646089644 Problem CPAP (continuous positive airway pressure) dependence Z99.89 Active 600355316 Problem Primary osteoarthritis of left knee M17.12 Active 359472683459444 Problem Gastroesophageal reflux disease with esophagitis K21.0 Active 250427982 Problem Chronic fatigue R53.82 Active 20338164 Problem Other chronic pain G89.29 Active 67770841 Problem Hypercholesterolemia E78.00 Active 81015241 Problem Morbid obesity due to excess calories E66.01 Active 839667040 Problem Bipolar 1 disorder F31.9 Active 214419973 ALLERGIES Substance Reaction Event Type Date Status Penicillin V Potassium Unknown Drug Allergy Oct, Active Iodine Unknown Drug Allergy Oct, Active ENCOUNTERS Encounter Location Date Diagnosis [facility] [id number] [place] [address] 93573- 7064 Apr, [facility] [id number] [place] [address] 73915- 0160 Feb, [place] [id number] [place] [address] 32328- 1317 Jan, Recurrent major depressive disorder, in full remission F33.42 and Anxiety F41.9 [place] [id number] [place] [address] 77607- 2041 Jan, Recurrent major depressive disorder, in full remission F33.42 [place] [place] [id number] [place] [address] 98631- 8567 November, [facility] [id number] [place] [address] 96574- 7252 November, Chronic migraine without aura without status migrainosus, not intractable G43.709 [place] [id number] [place] [address] 31504- 2054 November, Type 2 diabetes mellitus with hyperglycemia, without long- term current use of insulin E11.65 ; Dysuria R30.0 ; Acute cystitis without hematuria N30.00 ; Lumbago with sciatica, unspecified side M54.40 ; Other chronic pain G89.29 ; Chronic obstructive pulmonary disease, unspecified COPD type J44.9 ; Chest pain, unspecified type R07.9 ; Absent pedal pulses R09.89 and BMI 40.0-44.9, adult Z68.41 [place] [id number] [place] [address] 26914- 8344 Oct, Recurrent major depressive disorder, in full remission F33.42 and Anxiety F41.9 [place] [place] [id number] [place] [address] 94666- 9396 Sep, Other chronic pain G89.29 [place] [address] [place] [address] 2017 Other chronic pain G89.29 [place] [id number] [place] [address] 38191- 3581 09 Aug, 2017 Chronic obstructive pulmonary disease, [...] goiter E04.2 and BMI 40.0-44.9, adult Z68.41 [place] [id number] [place] [address] 49803- 1033 Aug, [facility] [id number] [place] [address] 14319- 1384 Jul, Type 2 diabetes mellitus with hyperglycemia, without long- term current use of insulin E11.65 [place] [id number] [place] [address] 91230- 0484 Jul, Type 2 diabetes mellitus with hyperglycemia, without long- term current use of insulin E11.65 [place] [id number] [place] [address] 98223- 4865 Jul, [place] [id number] [place] [address] 06841- 5554 Jul, Type 2 diabetes mellitus with hyperglycemia, [...] immunization Z23 and BMI 40.0-44.9, adult Z68.41 [place] [id number] [place] [address] 21307- 6012 Jun, Migraine without status migrainosus, not intractable, unspecified migraine type G43.909 ; Hypercholesterolemia E78.00 and Lumbago with sciatica, unspecified side M54.40 [place] [address] 63704- 5644 Jun, Recurrent major depressive disorder, in full remission F33.42 and Anxiety F41.9 [place] [address] 80938- 9031 Jun, [facility] [address] 55812- 1666 May, Hypercholesterolemia E78.00 ; 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.29 ; Migraine without status migrainosus , not intractable, unspecified migraine type G43.909 and Lumbago with sciatica, unspecified side M54.40 [place] [id number] [place] [address] 77490- 8420 May, Multinodular goiter E04.2 [place] [id number] [place] [address] 72371- 4302 May, [facility] [address] 45209- 5167 Apr, Multinodular goiter E04.2 [place] [address] 50982- 6532 Apr, Abnormal imaging of thyroid R94.6 ; Hypercholesterolemia E78.00 and 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.29 [place] [place] [address] 73541- 1109 Mar, Abnormal imaging of thyroid R94.6 [facility] [id number] [place] [address] 09104- 6361 Mar, Chest wall mass R22.2 [place] [place] [id number] [place] [address] 54200- 5059 Mar, Type 2 diabetes mellitus with hyperglycemia, without long- term current use of insulin E11.65 ; Gastroesophageal reflux disease with esophagitis K21.0 ; Hypercholesterolemia E78.00 ; Proteinuria, unspecified R80.9 ; 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.29 ; Chest wall mass R22.2 and Precordial pain R07.2 [place] [id number] [place] [address] 21573- 5807 Feb, Recurrent major depressive disorder, in full remission F33.42 [place] [place] [id number] [place] [address] 66757- 1888 Feb, Recurrent major depressive disorder, in full remission F33.42 and Anxiety F41.9 [place] [id number] [place] [address] 08943- 9417 Feb, [facility] [id number] [place] [address] [id number] Jan, Dental examination Z01.20 and Dental caries K02.9 [place] [id number] [place] [address] 77723- 8138 Dec, [place] [id number] [place] [address] 96602- 5390 Dec, [place] [id number] [place] [address] 20254- 3701 Dec, Type 2 diabetes mellitus with hyperosmolarity [...] and Stress incontinence ( female) (male) N39.3 [facility] [id number] [place] [address] [id number] Dec, Dental caries K02.9 [facility] [place] [id number] [place] [address] 70383- 6821 November, [facility] [place] [address] 98959- 507 November, Essential hypertension I10 ; Other chronic pain G89.29 ; Gastroesophageal reflux disease without esophagitis K21.9 and Anxiety F41.9 [facility] [id number] [place] [address] [id number] November, Dental examination Z01.20 [facility] [place] [id number] [place] [address] 43351- 9380 Oct, Recurrent major depressive disorder, in full remission F33.42 [facility] [place] [id number] [place] [address] 33925- 2536 Sep, Other chronic pain G89.29 [facility] [place] [id number] [place] [address] 58145- 2906 Sep, Other chronic pain G89.29 and Bipolar 1 disorder F31.9 [facility] [place] [id number] [place] [address] 46905- 9777 Aug, Other chronic pain G89.29 [facility] [place] [address] 66653- 7534 Jul, Gastroesophageal reflux disease without esophagitis K21.9 [facility] [place] [id number] [place] [address] 14307- 4728 Jun, Migraine without status migrainosus, not intractable, unspecified migraine type G43.909 [place] [id number] [place] [address] 71429- 4846 Jun, Type 2 diabetes mellitus with hyperosmolarity [...] ; Essential hypertension I10 and Hypercholesterolemia E78.[address] 54607- 7412 May, [place] [id number] [place] [address] 24036- 7375 Apr, Edema, unspecified type R60.9 ; Type [...] Z23 and Stress incontinence (female) (male) N39.3 [place] [id number] [place] [address] 98009- 5138 Apr, [place] [id number] [place] [address] 44300- 5480 Mar, Headache above the eye region R51 ; Lumbago with sciatica, unspecified side M54.40 ; Edema, unspecified type R60.9 and Migraine without status migrainosus, not intractable, unspecified migraine type G43.909 [place] [id number] [place] [address] 26724- 9858 Mar, Chronic obstructive pulmonary disease, unspecified COPD type J44.9 ; Type 2 diabetes mellitus with hyperosmolarity without coma, without long-term current use of insulin E11.00 ; Other chronic pain G89.29 ; Migraine without status migrainosus, not intractable, unspecified migraine type G43.909 ; Left-sided chest wall pain R07.89 and Anxiety about health F41.8 [place] [id number] [place] [address] 24079- 1742 Mar, [facility] [place] [id number] [place] [address] 16177- 8133 Mar, [place] [id number] [place] [address] 53723- 5648 Mar, [place] [id number] [place] [address] 52590- 6560 Feb, [place] [id number] [place] [address] 46020- 0087 Feb, [place] [id number] [place] [address] 84293- 6701 Feb, Chronic fatigue R53.82 ; Lumbago with sciatica, unspecified side M54.40 ; Gastroesophageal reflux disease with esophagitis K21.0 ; Other chronic pain G89.29 ; Morbid obesity due to excess calories E66.01 ; Migraine without status migrainosus, not intractable, unspecified migraine type G43.909 and Edema, unspecified type R60.9 [facility] [id number] [place] [address] [id number] Feb, Dental examination Z01.20 [facility] [place] [id number] [place] [address] 74701- 6400 Feb, [place] [id number] [place] [address] 29113- 6925 Feb, Type 2 diabetes mellitus with hyperosmolarity without coma, without long-term current use of insulin E11.00 ; Chronic fatigue R53.82 ; Gastroesophageal reflux disease with esophagitis K21.0 ; Morbid obesity due to excess calories E66.01 ; Lumbago with sciatica, unspecified side M54.40 and Other chronic pain G89.29 [facility] [place] [id number] [place] [address] 73315- 5706 Feb, Type 2 diabetes mellitus with hyperosmolarity without coma, without long-term current use of insulin E11.00 ; Chronic fatigue R53.82 ; Gastroesophageal reflux disease with esophagitis K21.0 ; Morbid obesity due to excess calories E66.01 ; Lumbago with sciatica, unspecified side M54.40 and Other chronic pain G89.29 [facility] [id number] [place] [address] [id number] Feb, Dental examination Z01.20 [facility] [place] [id number] [place] [address] 96545- 0286 Jan, [facility] [place] [id number] [place] [address] 87604- 8566 Mar, [facility] [id number] [place] [address] [id number] Feb, Dental examination V72.2 [facility] [place] [id number] [place] [address] 388116- 0424 Oct, [facility] [place] [id number] [place] [address] [id number]- 5086 Oct, [facility] [place] [id number] [place] [address] 28919- 0806 Aug, [facility] [place] [id number] [place] [address] 95704- 6896 Aug, [facility] [place] [id number] [place] [address] 43244- 2306 Jul, [facility] [place] [id number] [place] [address] 45578- 2546 Jul, [facility] [place] [id number] [place] [address] 21857- 7292 Jun, [facility] [place] [facility] [address] [id number] [place] [address]- 4462 Jun, [facility] [place] [facility] [address] [id number] [place] [address]- 8892 Jun, [facility] [place] [facility] [address] [id number] [place] [address]- 5177 Jun, [facility] [place] [facility] [address] [id number] [place] [address]- 9530 Jun, [facility] [place] [facility] [address] [id number] [place] [address]- 2866 Jun, [facility] [place] [facility] [address] [id number] [place] [address]- 7866 Jun, [facility] [place] [facility] [address] [id number] [place] [address]- 1143 Jun, [facility] [place] [facility] [address] [id number] [place] [address]- 6659 Jun, [facility] [place] [facility] [address] [id number] [place] [address]- 3582 Jun, [facility] [place] [facility] [address] [id number] [place] [address]- 4214 Jun, [facility] [place] [facility] [address] [id number] [place] [address]- 4574 Jun, [facility] [place] [facility] [address] [id number] [place] [address]- 6888 Jun, [facility] [place] [facility] [address] [id number] [place] [address]- 6626 May, [facility] [place] [facility] [address] [id number] [place] [address]- 2122 May, [facility] [place] [facility] [address] [id number] [place] [address]- 6403 May, [facility] [place] [facility] [address] [id number] [address]- 8468 May, [facility] [place] [facility] [address] [id number] [place] [address]- 5179 Apr, [facility] [place] [facility] [address] [id number] [place] [address]- 4848 Apr, [facility] [place] [facility] [address] [id number] [place] [address]- 2183 Apr, [facility] [place] [facility] [address] [id number] [place] [address]- 4952 Apr, [facility] [place] [facility] [address] [id number] [place] [address]- 2659 Apr, [facility] [place] [facility] [address] [id number] [place] [address]- 8700 Apr, [facility] [place] [facility] [address] [id number] [place] [address]- 0505 Apr, [facility] [place] [facility] [address] [id number] [place] [address]- 6399 Apr, [facility] [place] [facility] [address] [id number] [place] [address]- 1284 Apr, [facility] [place] [facility] [address] [id number] [place] [address]- 6103 Apr, [facility] [place] [facility] [address] [id number] [place] [address]- 4017 Mar, [facility] [place] [facility] [address] [id number] [place] [address]- 1069 Mar, [facility] [place] [facility] [address] [id number] [place] [address]- 3772 Feb, [facility] [place] [facility] [address] [id number] [place] [address]- 3616 Feb, [facility] [place] [facility] [address] [id number] [place] [address]- 2693 Feb, [facility] [place] [facility] [address] [facility] [id number] [place] [address]- 7242 Feb, [facility] [place] [address] [facility] [id number] [place] [address]- 0416 Jan, [facility] [place] [address] [facility] [id number] [place] [address]- 6866 Jan, IMMUNIZATIONS No Known Immunizations SOCIAL HISTORY Never Assessed REASON FOR VISIT Psychiatric f/u PLAN OF CARE Activity Details Follow Up 3 Months Reason:BH f/u VITAL SIGNS Height 68 in 2017-10-26 Weight 287.1 lbs 2017-10-26 Heart Rate 88 bpm 2017-10-26 Respiratory Rate 20 2017-10-26 BMI 43.65 kg/m2 2017-10-26 Blood pressure systolic 116 mmHg 2017-10-26 Blood pressure diastolic 72 mmHg 2017-10-26 MEDICATIONS Medication Instructions Dosage Frequency Start Date End Date Duration Status Propranolol HCl 20 MG Orally Twice a day 1 tablet 12h Active Metformin HCl 1000 MG Orally Twice a day 1 tablet with meals 12h 90 days Active Lisinopril 10 mg Orally Once a day 1 tablet 24h Mar, Active Atorvastatin Calcium 10 mg Orally Once a day 1 tablet 24h Feb, Active Tizanidine HCl 2 MG Orally Three times a day 1 tablet as needed 8h Jan Active Glucocard Expression Test - In Vitro fasting and 2 hr after 1 meal 3 times weekly. test blood sugar November, Not-Taking Abilify 10 mg Orally Once a day 1 tablet 24h 30 Active Naproxen 500 mg Orally 2 times a day 1 tablet as needed 12h 30 days Active Gabapentin 600 MG Orally Three times a day 2 tablets 8h 30 days Active Topiramate 50MG TAKE THREE TABLETS BY MOUTH TWICE DAILY Active Blood Glucose Monitor System w/Device as directed Jul, Active Aripiprazole 10MG TAKE ONE TABLET BY MOUTH ONCE DAILY Active Omeprazole 20 MG Orally Once a day 1 capsule 24h Active Abilify 10 mg Orally Once a day 1 tablet 24h Active Sumatriptan Succinate 100 mg Orally Once a day 1 tablet as needed 24h 30 days Not-Taking Blood Glucose Test - In Vitro 2 times a day DX: E11.65 test blood sugar Jul, Active Glucocard Expression Monitor w/Device as directed November, Not-Taking RESULTS No Results PROCEDURES Procedure Date Ordered Result Body Site [facility] VISIT ESTABLISHED PATIENT October 26, 2017 INSTRUCTIONS MEDICATIONS ADMINISTERED No Known Medications [...] Hospitalization History psychiatric stay s/p overdose in [place] in 2006 Hospitalization History chest pain and UTI 02/2017 Hospitalization History [facility] [place]- UTI 11/23/2017
--- OUTSIDE RECORDS SUMMARY | 2018-04-14 19:07 | XMS REPORT ---
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 Name Role Phone MEHDISHARON KRUSEHANY Unavailable PROBLEMS Type Condition ICD9-CM Code GEJ39-BN Code Onset Dates Condition Status SNOMED Code Problem Essential hypertension I10 Active 00376326 Problem Recurrent major depressive disorder, in full remission F33.42 Active 048408517 Problem Anxiety F41.9 Active 71411571 Problem Chronic migraine without aura without status migrainosus, not intractable G43.709 Active 579744640 Problem Chronic obstructive pulmonary disease, unspecified COPD type J44.9 Active 49069487 Problem Mixed incontinence urge and stress N39.46 Active 723764097 Problem Obstructive sleep apnea syndrome G47.33 Active 42387139 Problem 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 Active 7135447349531683 Problem Proteinuria, unspecified R80.9 Active 40699554 Problem Type 2 diabetes mellitus with hyperglycemia, without long-term current use of insulin E11.65 Active 49639963 Problem Multinodular goiter E04.2 Active 373198982 Problem 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.29 Active 287140407 Problem Precordial pain R07.2 Active 56519549 Problem Lumbago with sciatica, unspecified side M54.40 Active 062595737 Problem CPAP (continuous positive airway pressure) dependence Z99.89 Active 307583517 Problem Primary osteoarthritis of left knee M17.12 Active 639041789879939 Problem Gastroesophageal reflux disease with esophagitis K21.0 Active 850889693 Problem Chronic fatigue R53.82 Active 54343729 Problem Other chronic pain G89.29 Active 67535790 Problem Hypercholesterolemia E78.00 Active 45501102 Problem Morbid obesity due to excess calories E66.01 Active 823109783 Problem Bipolar 1 disorder F31.9 Active 693324250 ALLERGIES No Information ENCOUNTERS Encounter Location Date Diagnosis [facility] [address] [address] Apr, [facility] [place] [address] [address] [id number] [place] [address] 25020- 2215 Feb, [facility] [place] [id number] [place] [address] 36868- 3554 Jan, Recurrent major depressive disorder, in full remission F33.42 and Anxiety F41.9 [facility] [id number] [place] [address] 85483- 9456 Jan, Recurrent major depressive disorder, in full remission F33.42 [facility] [id number] [place] [address] 24794- 0339 November, [facility] [place] [id number] [place] [address] 33451- 5254 November, Chronic migraine without aura without status migrainosus, not intractable G43.709 [facility] [place] [id number] [place] [address] 54301- 7588 November, Type 2 diabetes mellitus with hyperglycemia, without long- term current use of insulin E11.65 ; Dysuria R30.0 ; Acute cystitis without hematuria N30.00 ; Lumbago with sciatica, unspecified side M54.40 ; Other chronic pain G89.29 ; Chronic obstructive pulmonary disease, unspecified COPD type J44.9 ; Chest pain, unspecified type R07.9 ; Absent pedal pulses R09.89 and BMI 40.0-44.9, adult Z68.41 [facility] [place] [address] [place] [address] 42886- 4023 Oct, Recurrent major depressive disorder, in full remission F33.42 and Anxiety F41.9 [facility] [place] [id number] [place] [address] 56946- 5535 Sep, Other chronic pain G89.29 [facility] [id number] [place] [address] 03864- 4949 Aug, Other chronic pain G89.29 [facility] [place] [address] [place] [id number] [place] [address] 99276- 5185 Aug, Chronic obstructive pulmonary disease, unspecified COPD [...] goiter E04.2 and BMI 40.0-44.9, adult Z68.41 [facility] [place] [id number] [place] [address] 12439- 8615 Aug, [facility] [address] [id number] [place] [address] 24648- 2130 Jul, Type 2 diabetes mellitus with hyperglycemia, without long- term current use of insulin E11.65 [facility] [id number] [place] [address] 08805- 0081 Jul, Type 2 diabetes mellitus with hyperglycemia, without long- term current use of insulin E11.65 [facility] [address] [id number] [place] [address] 85292- 4028 Jul, [facility] [address] 25817- 7202 Jul, Type 2 diabetes mellitus with hyperglycemia, [...] immunization Z23 and BMI 40.0-44.9, adult Z68.41 [facility] [address] 46718- 3866 Jun, Migraine without status migrainosus, not intractable, unspecified migraine type G43.909 ; Hypercholesterolemia E78.00 and Lumbago with sciatica, unspecified side M54.40 [facility] [address] 39898- 3864 Jun, Recurrent major depressive disorder, in full remission F33.42 and Anxiety F41.[address] 36534- 6168 Jun, [address] 98270- 1427 May, Hypercholesterolemia E78.00 ; 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.29 ; Migraine without status migrainosus , not intractable, unspecified migraine type G43.909 and Lumbago with sciatica, unspecified side M54.40 [facility] [address] 38683- 8437 May, Multinodular goiter E04.2 [facility] [address] 87257- 1811 May, [facility] [address] 91677- 6068 Apr, Multinodular goiter E04.2 [facility] [address] 31490- 4799 Apr, Abnormal imaging of thyroid R94.6 ; Hypercholesterolemia E78.00 and 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.29 [facility] [place] [address] 40001- 9618 Mar, Abnormal imaging of thyroid R94.6 [facility] [place] [address] [place] [address] 41214- 6799 Mar, Chest wall mass R22.2 [facility] [place] [address] [address] [id number] [place] [address] 75039- 5982 Mar, Type 2 diabetes mellitus with hyperglycemia, without long- term current use of insulin E11.65 ; Gastroesophageal reflux disease with esophagitis K21.0 ; Hypercholesterolemia E78.00 ; Proteinuria, unspecified R80.9 ; 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.29 ; Chest wall mass R22.2 and Precordial pain R07.2 [facility] [id number] [place] [address] 79506- 3677 Feb, Recurrent major depressive disorder, in full remission F33.42 [facility] [place] [address] [id number] [place] [address] 85917- 6689 Feb, Recurrent major depressive disorder, in full remission F33.42 and Anxiety F41.9 [facility] [place] [address] [id number] [place] [address] 78690- 7184 Feb, [facility] [place] [address] [place] [address] [id number] Jan, Dental examination Z01.20 and Dental caries K02.[address] [place] [address] 20918- 2790 Dec, [facility] [id number] [place] [address] 82554- 8029 Dec, [facility] [address] [id number] [place] [address] 36448- 1555 Dec, Type 2 diabetes mellitus with hyperosmolarity [...] and Stress incontinence ( female) (male) N39.3 [facility] [address] [place] [address] [id number] Dec, Dental caries K02.9 [facility] [id number] [place] [address] 33526- 5126 November, [facility] [address] [place] [id number]- 6586 November, Essential hypertension I10 ; Other chronic pain G89.29 ; Gastroesophageal reflux disease without esophagitis K21.9 and Anxiety F41.9 [facility] [address] [id number] [place] [address] [id number] November, Dental examination Z01.20 [facility] [id number] [place] [address] 25696- 8180 Oct, Recurrent major depressive disorder, in full remission F33.42 [facility] [id number] [place] [address] 29342- 1356 Sep, Other chronic pain G89.29 [facility] [id number] [place] [address] 23979- 8596 Sep, Other chronic pain G89.29 and Bipolar 1 disorder F31.9 [facility] [id number] [place] [address] 13953 2546 Aug, Other chronic pain G89.29 [facility] [id number] [place] [address] 91343- 3793 Jul, Gastroesophageal reflux disease without esophagitis K21.9 [facility] [id number] [place] [address] 41552- 7070 Jun, Migraine without status migrainosus, not intractable, unspecified migraine type G43.909 [facility] [id number] [place] [address] 69333- 0985 Jun, Type 2 diabetes mellitus with hyperosmolarity [...] ; Essential hypertension I10 and Hypercholesterolemia E78.00 [facility] [address] 06187- 7658 May, [facility] [address] 54656- 5268 Apr, Edema, unspecified type R60.9 ; Type [...] Z23 and Stress incontinence (female) (male) N39.3 [facility] [id number] [place] [address] 71658- 9199 Apr, [facility] [address] 84974- 4676 Mar, Headache above the eye region R51 ; Lumbago with sciatica, unspecified side M54.40 ; Edema, unspecified type R60.9 and Migraine without status migrainosus, not intractable, unspecified migraine type G43.909 [facility] [place] [id number] [place] [address] 31019- 8463 Mar, Chronic obstructive pulmonary disease, unspecified COPD type J44.9 ; Type 2 diabetes mellitus with hyperosmolarity without coma, without long-term current use of insulin E11.00 ; Other chronic pain G89.29 ; Migraine without status migrainosus, not intractable, unspecified migraine type G43.909 ; Left-sided chest wall pain R07.89 and Anxiety about health F41.8 [facility] [address] [address]- 1150 Mar, [facility] [address] [place] [id number] [place] [address] 31333- 0766 Mar, [facility] [address] [place] [address] 81173- 4558 Mar, [facility] [place] [address] [id number] [place] [address] 69320- 5033 Feb, [facility] [address] [id number] [place] [address] 05928- 2886 Feb, [facility] [id number] [place] [address] 07192- 3839 Feb, Chronic fatigue R53.82 ; Lumbago with sciatica, unspecified side M54.40 ; Gastroesophageal reflux disease with esophagitis K21.0 ; Other chronic pain G89.29 ; Morbid obesity due to excess calories E66.01 ; Migraine without status migrainosus, not intractable, unspecified migraine type G43.909 and Edema, unspecified type R60.9 [facility] [address] [id number] [id number] Feb, Dental examination Z01.20 [facility] [address] [place] [address] 76597- 7963 Feb, [place] [address] [place] [address] 84398- 7522 Feb, Type 2 diabetes mellitus with hyperosmolarity without coma, without long-term current use of insulin E11.00 ; Chronic fatigue R53.82 ; Gastroesophageal reflux disease with esophagitis K21.0 ; Morbid obesity due to excess calories E66.01 ; Lumbago with sciatica, unspecified side M54.40 and Other chronic pain G89.29 [facility] [address] [place] [address] 63737- 5056 Feb, Type 2 diabetes mellitus with hyperosmolarity without coma, without long-term current use of insulin E11.00 ; Chronic fatigue R53.82 ; Gastroesophageal reflux disease with esophagitis K21.0 ; Morbid obesity due to excess calories E66.01 ; Lumbago with sciatica, unspecified side M54.40 and Other chronic pain G89.29 [facility] [address] [place] [id number] [place] [address] [id number] Feb, Dental examination Z01.20 [facility] [address] 31622- 0076 Jan, [facility] [id number] [place] [address] 42489- 3366 Mar, [facility] [address] [id number] [place] [address] [id number] Feb, Dental examination V72.2 [facility] [id number] [place] [address] 163368- 1553 Oct, [facility] [id number] [place] [address] [id number]- 4506 Oct, [facility] [id number] [place] [address] 272092- 8476 Aug, [facility] [id number] [place] [address] [id number]- 3406 Aug, [facility] [id number] [place] [address] 070496- 4246 Jul, [facility] [id number] [place] [address] 055535- 4356 Jul, [facility] [id number] [place] [address] 44978- 1686 Jun, [facility] [address] [id number]- 2360 30 Jun, 2014 [facility] [place] [facility] [address] [id number] [place]99 Jun, [facility] [place] [facility] [address] [id number] [place] [address]- 2356 Jun, [facility] [place] [facility] [address] [id number] [place] [address]- 9976 Jun, [facility] [place] [facility] [address] [id number] [place] [address]- 7123 Jun, [facility] [place] [facility] [address] [id number] [place] 5637 Jun, [facility] [place] [facility] [address] [id number] [place] 4069 Jun, [facility] [place] [facility] [address] [id number] [place] [address]- 2672 Jun, [facility] [place] [facility] [address] [id number] [place] [address]- 0551 Jun, [facility] [place] [facility] [address] [id number] [place] [address]- 1468 Jun, [facility] [place] [facility] [address] [id number] [place] [address]- 9112 Jun, [facility] [place] [facility] [address] [id number] [place] [address]- 1288 Jun, [facility] [place] [facility] [address] [id number] [place] [address]- 7888 May, [facility] [place] [facility] [address] [id number] [place] [address]- 9625 May, [facility] [place] [facility] [address] [id number] [place] [address]- 3696 May, [facility] [place] [facility] [address] [id number] [place] [address]- 3501 May, [facility] [place] [facility] [address] [id number] [place] [address]- 8589 Apr, [facility] [place] [facility] [address] [id number] [place] [address]- 0191 Apr, [facility] [place] [facility] [address] [id number] [place] [address]- 9352 Apr, [facility] [place] [facility] [address] [id number] [place] [address]- 5671 Apr, [facility] [place] [facility] [address] [id number] [place] [address]- 6908 Apr, [facility] [place] [facility] [address] [id number] [place] [address]- 7496 Apr, [facility] [place] [facility] [address] [id number] [place] [address]- 4413 Apr, [facility] [place] [facility] [address] [id number] [place] [address]- 4440 Apr, [facility] [place] [facility] [address] [id number] [place] [address]- 6403 Apr, [facility] [place] [facility] [address] [id number] [place] [address]- 5991 Apr, [facility] [place] [facility] [address] [id number] [place] [address]- 7619 Mar, [facility] [place] [facility] [address] [id number] [place] [address]- 1610 Mar, [facility] [place] [facility] [address] [id number] [place] [address]- 3783 Feb, [facility] [place] [facility] [address] [id number] [place] [address]- 5291 Feb, [facility] [place] [facility] [address] [id number] [place] [address]- 3693 Feb, [facility] [place] [facility] [address] [id number] [place] [address]- 7313 Feb, [facility] [address] [facility] [id number] [place] [address] 2546 Jan, [facility] [address] [facility] [id number] [place] [address]- 2546 Jan, IMMUNIZATIONS No Known Immunizations SOCIAL HISTORY Never Assessed REASON FOR VISIT Refill request PLAN OF CARE VITAL SIGNS MEDICATIONS Medication Instructions Dosage Frequency Start Date End Date Duration Status Propranolol HCl 20 mg Orally Twice a day 1 tablet 12h 30 days Active RESULTS No Results PROCEDURES [...] and UTI 02/2017 Hospitalization History [facility] [place]- UTI 11/23/2017
--- OUTSIDE RECORDS SUMMARY | 2018-04-14 19:08 | XMS REPORT ---
Author Author OBINNA HARDING [facility] Address [address] [place] [address] Care Team Providers Care Small Business Representative Name Role Phone OBINNA HARDING Unavailable PROBLEMS Type Condition ICD9-CM Code EUB80-TW Code Onset Dates Condition Status SNOMED Code Problem Essential hypertension I10 Active 96410800 Problem Recurrent major depressive disorder, in full remission F33.42 Active 908217336 Problem Anxiety F41.9 Active 22825365 Problem Chronic migraine without aura without status migrainosus, not intractable G43.709 Active 120340848 Problem CPAP (continuous positive airway pressure) dependence Z99.89 Active 758530938 Problem Mixed incontinence urge and stress N39.46 Active 475607274 Problem 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 Active 3084941722092955 Problem 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.29 Active 340779992 Problem Proteinuria, unspecified R80.9 Active 82331968 Problem Multinodular goiter E04.2 Active 531774960 Problem Type 2 diabetes mellitus with hyperglycemia, without long-term current use of insulin E11.65 Active 64841817 Problem Chronic obstructive pulmonary disease, unspecified COPD type J44.9 Active 16764711 Problem Morbid obesity due to excess calories E66.01 Active 772433162 Problem Primary osteoarthritis of left knee M17.12 Active 420602922389533 Problem Obstructive sleep apnea syndrome G47.33 Active 64678925 Problem Lumbago with sciatica, unspecified side M54.40 Active 208108949 Problem Other chronic pain G89.29 Active 75774152 Problem Chronic fatigue R53.82 Active 50436351 Problem Hypercholesterolemia E78.00 Active 16173003 Problem Gastroesophageal reflux disease with esophagitis K21.0 Active 281171086 Problem Bipolar 1 disorder F31.9 Active 964742601 ALLERGIES No Information ENCOUNTERS Encounter Location Date Diagnosis [facility] [id number] [address] Jan, [place] [id number] [place] [address]90- 3052 Jan, Recurrent major depressive disorder, in full remission F33.42 [place] [address] [place] [address] 99495- 8031 November, [place] [address] [place] [id number] [place] [address] 05937- 0671 November, Chronic migraine without aura without status migrainosus, not intractable G43.709 [place] [address] [place] [id number] [place] [address] 16686- 0917 November, Type 2 diabetes mellitus with hyperglycemia, without long- term current use of insulin E11.65 ; Dysuria R30.0 ; Acute cystitis without hematuria N30.00 ; Lumbago with sciatica, unspecified side M54.40 ; Other chronic pain G89.29 ; Chronic obstructive pulmonary disease, unspecified COPD type J44.9 ; Chest pain, unspecified type R07.9 ; Absent pedal pulses R09.89 and BMI 40.0-44.9, adult Z68.41 [place] [address] [place] [id number] [place] [address] 20351- 4148 Oct, Recurrent major depressive disorder, in full remission F33.42 and Anxiety F41.9 [place] [address] [place] [id number] [place] [address] 15921- 3742 Sep, Other chronic pain G89.29 [place] [address] [place] [id number] [place] [address] 31573- 2558 Aug, Other chronic pain G89.29 [place] [address] [place] [id number] [place] [address] 51560- 6929 Aug, Chronic obstructive pulmonary disease, unspecified COPD [...] goiter E04.2 and BMI 40.0-44.9, adult Z68.41 [place] [address] [address]- [address] Aug, [place] [address] 49466- 1547 Jul, Type 2 diabetes mellitus with hyperglycemia, without long- term current use of insulin E11.65 [place] [address] 92850- 1754 Jul, Type 2 diabetes mellitus with hyperglycemia, without long- term current use of insulin E11.65 [place] [address] 54423- 7581 Jul, [place] [address] 23302- 4681 Jul, Type 2 diabetes mellitus with hyperglycemia, [...] immunization Z23 and BMI 40.0-44.9, adult Z68.41 [place] [address] 87349- 5924 Jun, Migraine without status migrainosus, not intractable, unspecified migraine type G43.909 ; Hypercholesterolemia E78.00 and Lumbago with sciatica, unspecified side M54.40 [place] [address] [place] [id number] [place] [address] 68537- 7061 11 Jun, 2017 Recurrent major depressive disorder, in full remission F33.42 and Anxiety F41.9 [place] [address] [place] [id number] [place] [address] 74344- 5360 07 Jun, 2017 [place] [address] [place] [id number] [place] [address] 18500- 7323 May, Hypercholesterolemia E78.00 ; 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.29 ; Migraine without status migrainosus , not intractable, unspecified migraine type G43.909 and Lumbago with sciatica, unspecified side M54.40 [place] [address] [place] [id number] [place] [address] 18057- 5729 14 May, 2017 Multinodular goiter E04.2 [place] [address] [place] [id number] [place] [address] 64872- 4734 May, [place] [address] [place] [id number] [place] [address] 06323- 1724 13 Apr, 2017 Multinodular goiter E04.2 [place] [address] [place] [id number] [place] [address] 15965- 8296 06 Apr, 2017 Abnormal imaging of thyroid R94.6 ; Hypercholesterolemia E78.00 and 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.29 [place] [address] [place] [id number] [place] [address] 88936- 8719 29 Mar, 2017 Abnormal imaging of thyroid R94.6 [place] [address] [place] [id number] [place] [address] 31003- 9791 20 Mar, 2017 Chest wall mass R22.2 [place] [address] [place] [id number] [place] [address] 18016- 0582 07 Mar, 2017 Type 2 diabetes mellitus with hyperglycemia, without long- term current use of insulin E11.65 ; Gastroesophageal reflux disease with esophagitis K21.0 ; Hypercholesterolemia E78.00 ; Proteinuria, unspecified R80.9 ; 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.29 ; Chest wall mass R22.2 and Precordial pain R07.2 [place] [address] [place] [id number] [place] [address] 49759- 5428 Feb, Recurrent major depressive disorder, in full remission F33.42 [place] [address] [place] [id number] [place] [address] 88385- 4302 Feb, Recurrent major depressive disorder, in full remission F33.42 and Anxiety F41.9 [place] [address] 72780- 0834 Feb, [facility] [address] [id number] Jan, Dental examination Z01.20 and Dental caries K02.[address] [address]07- [address] Dec, [place] [address] [place] [id number] [place] [address] 44531- 0849 Dec, [address] 50161- 1669 Dec, Type 2 diabetes mellitus with hyperosmolarity [...] and Stress incontinence ( female) (male) N39.3 [facility] [address] [place] [id number] [place] [address] [id number] Dec, Dental caries K02.9 [place] [address] [place] [address] November, [facility] [address] [place] [id number] [place] [address] 92464- 8210 November, Essential hypertension I10 ; Other chronic pain G89.29 ; Gastroesophageal reflux disease without esophagitis K21.9 and Anxiety F41.9 [facility] [address] [id number] November, Dental examination Z01.20 [facility] [address] [place] [id number] [place] [address] 74639- 2571 Oct, Recurrent major depressive disorder, in full remission F33.42 [place] [address] [place] [id number] [place] [address] 79341- 8623 Sep, Other chronic pain G89.29 [place] [address] [place] [id number] [place] [address] 34912- 0664 Sep, Other chronic pain G89.29 and Bipolar 1 disorder F31.9 [facility] [address] [place] [id number] [place] [address] 77652- 5143 Aug, Other chronic pain G89.29 [facility] [address] [place] [id number] [place] [address] 39263- 9154 Jul, Gastroesophageal reflux disease without esophagitis K21.9 [facility] [address] [place] [address] 90197- 1824 Jun, Migraine without status migrainosus, not intractable, unspecified migraine type G43.909 [facility] [address] [place] [address] 78362- 7260 Jun, Type 2 diabetes mellitus with hyperosmolarity [...] ; Essential hypertension I10 and Hypercholesterolemia E78.00 [place] [address] 67123- 2206 May, [place] [address] 54750- 7257 Apr, Edema, unspecified type R60.9 ; Type [...] Z23 and Stress incontinence (female) (male) N39.3 [place] [address] 20757- 9044 Apr, [place] [address] [place] [id number] [place] [address] 86444- 5697 Mar, Headache above the eye region R51 ; Lumbago with sciatica, unspecified side M54.40 ; Edema, unspecified type R60.9 and Migraine without status migrainosus, not intractable, unspecified migraine type G43.909 [place] [address] [place] [id number] [place] [address] 50031- 4384 Mar, Chronic obstructive pulmonary disease, unspecified COPD type J44.9 ; Type 2 diabetes mellitus with hyperosmolarity without coma, without long-term current use of insulin E11.00 ; Other chronic pain G89.29 ; Migraine without status migrainosus, not intractable, unspecified migraine type G43.909 ; Left-sided chest wall pain R07.89 and Anxiety about health F41.8 [place] [id number] [place] [address] 39208- 8439 Mar, [place] [address], [place] [address] 2750 Mar, [facility] [address], [place] [address]- 3848 Mar, [facility] [address], [place] [address]- 3058 Feb, [facility] [address], [place] [address]- 7861 Feb, [facility] [address] [place] [address] 88745- 2010 Feb, Chronic fatigue R53.82 ; Lumbago with sciatica, unspecified side M54.40 ; Gastroesophageal reflux disease with esophagitis K21.0 ; Other chronic pain G89.29 ; Morbid obesity due to excess calories E66.01 ; Migraine without status migrainosus, not intractable, unspecified migraine type G43.909 and Edema, unspecified type R60.9 [facility] [address] [id number] Feb, Dental examination Z01.20 [place] [address], [place] [address]- 50[address] Feb, [facility] [address] [address]- 0879 Feb, Type 2 diabetes mellitus with hyperosmolarity without coma, without long-term current use of insulin E11.00 ; Chronic fatigue R53.82 ; Gastroesophageal reflux disease with esophagitis K21.0 ; Morbid obesity due to excess calories E66.01 ; Lumbago with sciatica, unspecified side M54.40 and Other chronic pain G89.29 [facility] [address], [place] [address]- 4069 Feb, Type 2 diabetes mellitus with hyperosmolarity without coma, without long-term current use of insulin E11.00 ; Chronic fatigue R53.82 ; Gastroesophageal reflux disease with esophagitis K21.0 ; Morbid obesity due to excess calories E66.01 ; Lumbago with sciatica, unspecified side M54.40 and Other chronic pain G89.29 [facility] [address] [id number] [id number] Feb, Dental examination Z01.20 [facility] [address] [id number], [place] [address]- 6406 Jan, [facility] [id number] [place] [address] 54489- 0476 Mar, [facility] [id number] [place] [address] [id number] Feb, Dental examination V72.2 [facility] [address] [place] [id number] [place] [address] 84065- 2986 Oct, [facility] [address] [place] [id number] [place] [address] 250928- 4012 Oct, [facility] [address] [place] [id number] [place] [address] 40997- 5646 Aug, [facility] [address] [place] [address] 727711- 6495 Aug, [facility] [address] [place] [id number] [place] [address] 095588- 6766 Jul, [facility] [address] [address] Jul, [facility] [address] [address] 8566 Jun, [facility] [address] [facility] [id number] 1222 Jun, [facility] [address] [place] [id number] [place] [address] 389227- 3853 Jun, [facility] [address] [facility] [id number] 2536 Jun, [facility] [address] [place] [address] [id number]- 8386 Jun, [facility] [place] [facility] [address] [id number] [place] [address]- 0448 Jun, [facility] [place] [facility] [address] [id number] [place] 2723 Jun, [facility] [place] [facility] [address] [id number] [place] [address] Jun, [facility] [place] [facility] [address] [id number] [place] [address]- 0287 Jun, [facility] [place] [facility] [address] [id number] [place] [address]- 3476 Jun, [facility] [place] [facility] [address] [id number] [place] [address]- 1361 Jun, [facility] [place] [facility] [address] [id number] [place] [address]- 2602 Jun, [facility] [place] [facility] [address] [id number] [place] [address]- 9431 Jun, [facility] [place] [facility] [address] [id number] [place] [address]- 0683 May, [facility] [place] [facility] [address] [id number] [place] [address]- 5382 May, [facility] [place] [facility] [address] [id number] [place] [address]- 7795 May, [facility] [place] [facility] [address] [id number], [place] [address]- 3193 May, [facility] [place] [facility] [address] [id number] [place] [address]- 0933 Apr, [facility] [place] [facility] [address] [id number] [place] [address]- 6890 Apr, [facility] [place] [facility] [address] [id number] [place] [address]- 2383 Apr, [facility] [place] [facility] [address] [facility] [id number], [place] [address]- 0559 Apr, [facility] [address] [id number] 3294 Apr, [facility] [address] [facility] [id number]- 8112 Apr, [facility] [address] [facility] [id number] 4913 Apr, [facility] [address] [facility] [id number], [place] [address]- 5279 Apr, [facility] [address] [facility] [id number]- 1774 Apr, [facility] [address] [facility] [id number], [place] [address]- 6359 Apr, [facility] [address], [place] [address]- 0544 Mar, [facility] [address] [facility] [id number], [place] [address]- 1192 Mar, [facility] [address], [place] [address]- 5254 Feb, [facility] [address] [facility] [id number], [place] [address]- 5749 Feb, [facility] [address], [place] [address]- 0630 Feb, [facility] [address] [facility] [id number]- 4413 Feb, [facility] [address] [facility] [id number], [place] [address]- 3222 Jan, [facility] [address] [facility] [id number]- 4454 Jan, IMMUNIZATIONS No Known Immunizations SOCIAL HISTORY Never Assessed REASON FOR VISIT Refill Request PLAN OF CARE VITAL SIGNS MEDICATIONS Medication Instructions Dosage Frequency Start Date End Date Duration Status Gabapentin 600 MG Orally Three times a day 2 tablets 8h 30 days Active RESULTS No Results [...] Hospitalization History psychiatric stay s/p overdose in [place] in 2006 Hospitalization History chest pain and UTI 02/2017 Hospitalization History [facility]- UTI 11/23/2017
--- OUTSIDE RECORDS SUMMARY | 2018-04-14 19:10 | XMS REPORT ---
Author Author OBINNA HARDING [facility] Address [address] [place] [address] Care Team Providers Care Bi Tri Operator Name Role Phone OBINNA HARDING Unavailable PROBLEMS Type Condition ICD9-CM Code LMX36-IV Code Onset Dates Condition Status SNOMED Code Problem Essential hypertension I10 Active 95159330 Problem Recurrent major depressive disorder, in full remission F33.42 Active 055996765 Problem Anxiety F41.9 Active 56101828 Problem Chronic migraine without aura without status migrainosus, not intractable G43.709 Active 190076827 Problem CPAP (continuous positive airway pressure) dependence Z99.89 Active 400208948 Problem Mixed incontinence urge and stress N39.46 Active 912249651 Problem 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 Active 4184575339331718 Problem 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.29 Active 314506942 Problem Proteinuria, unspecified R80.9 Active 49487432 Problem Multinodular goiter E04.2 Active 686182235 Problem Type 2 diabetes mellitus with hyperglycemia, without long-term current use of insulin E11.65 Active 40989301 Problem Chronic obstructive pulmonary disease, unspecified COPD type J44.9 Active 06579277 Problem Morbid obesity due to excess calories E66.01 Active 312335721 Problem Primary osteoarthritis of left knee M17.12 Active 507794483311742 Problem Obstructive sleep apnea syndrome G47.33 Active 88547830 Problem Lumbago with sciatica, unspecified side M54.40 Active 737002016 Problem Other chronic pain G89.29 Active 95641478 Problem Chronic fatigue R53.82 Active 98896229 Problem Hypercholesterolemia E78.00 Active 46155908 Problem Gastroesophageal reflux disease with esophagitis K21.0 Active 329841628 Problem Bipolar 1 disorder F31.9 Active 972375012 ALLERGIES No Information ENCOUNTERS Encounter Location Date Diagnosis [facility] [id number] [place] [address] 70537- 7756 Jan, [place] [id number] [place] [address] 00999- 1196 November, [place] [id number] [place] [address] 11196- 8755 November, Chronic migraine without aura without status migrainosus, not intractable G43.709 [place] [id number] [place] [address] 62412- 4565 November, Type 2 diabetes mellitus with hyperglycemia, without long- term current use of insulin E11.65 ; Dysuria R30.0 ; Acute cystitis without hematuria N30.00 ; Lumbago with sciatica, unspecified side M54.40 ; Other chronic pain G89.29 ; Chronic obstructive pulmonary disease, unspecified COPD type J44.9 ; Chest pain, unspecified type R07.9 ; Absent pedal pulses R09.89 and BMI 40.0-44.9, adult Z68.41 [place] [id number] [place] [address] 53178- 5229 Oct, Recurrent major depressive disorder, in full remission F33.42 and Anxiety F41.9 [place] [id number] [place] [address] 73587- 2306 Sep, Other chronic pain G89.29 [place] [id number] [place] [address] 64684- 2031 Aug, Other chronic pain G89.29 [place] [id number] [place] [address] 61875- 8932 Aug, Chronic obstructive pulmonary disease, unspecified COPD [...] goiter E04.2 and BMI 40.0-44.9, adult Z68.41 [place] [address] [place] [id number] [place] [address] 49146- 9354 Aug, [place] [address] 59450- 8434 Jul, Type 2 diabetes mellitus with hyperglycemia, without long- term current use of insulin E11.65 [place] [address] 15565- 3961 Jul, Type 2 diabetes mellitus with hyperglycemia, without long- term current use of insulin E11.65 [place] [address] [place] [id number] [place] [address] 35116- 2110 Jul, [place] [address] 39880- 9487 Jul, Type 2 diabetes mellitus with hyperglycemia, [...] immunization Z23 and BMI 40.0-44.9, adult Z68.41 [place] [address] [place] [id number] [place] [address] 53084- 9726 Jun, Migraine without status migrainosus, not intractable, unspecified migraine type G43.909 ; Hypercholesterolemia E78.00 and Lumbago with sciatica, unspecified side M54.40 [place] [id number] [place] [address] 69247- 9155 Jun, Recurrent major depressive disorder, in full remission F33.42 and Anxiety F41.9 [place] [address] 72864- 8792 Jun, [place] [address] 51322- 6420 May, Hypercholesterolemia E78.00 ; 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.29 ; Migraine without status migrainosus , not intractable, unspecified migraine type G43.909 and Lumbago with sciatica, unspecified side M54.40 [place] [address] 61548- 8782 14 May, 2017 Multinodular goiter E04.2 [place] [address] 43428- 6755 May, [place] [address] 49814- 7295 Apr, Multinodular goiter E04.2 [place] [address] [place] [id number] [place] [address] 33817- 3202 Apr, Abnormal imaging of thyroid R94.6 ; Hypercholesterolemia E78.00 and 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.29 [place] [address] [place] [id number] [place] [address] 34893- 2164 Mar, Abnormal imaging of thyroid R94.6 [place] [address] [place] [id number] [place] [address] 05497- 4584 20 Mar, 2017 Chest wall mass R22.2 [place] [address] [place] [id number] [place] [address] 43952- 7735 07 Mar, 2017 Type 2 diabetes mellitus with hyperglycemia, without long- term current use of insulin E11.65 ; Gastroesophageal reflux disease with esophagitis K21.0 ; Hypercholesterolemia E78.00 ; Proteinuria, unspecified R80.9 ; 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.29 ; Chest wall mass R22.2 and Precordial pain R07.2 [place] [address] [address]- 3331 Feb, Recurrent major depressive disorder, in full remission F33.42 [place] [address] [place] [id number] [place] [address] 51872- 7592 Feb, Recurrent major depressive disorder, in full remission F33.42 and Anxiety F41.9 [place] [address] [place] [id number] [place] [address] 61328- 6351 Feb, [facility] [id number] [place] [address] [id number] Jan, Dental examination Z01.20 and Dental caries K02.9 [place] [id number] [place] [address] 72891- 0002 Dec, [place] [address] [place] [id number] [place] [address] 18388- 0357 Dec, [place] [address] [place] [id number] [place] [address] 56427- 0955 Dec, Type 2 diabetes mellitus with hyperosmolarity [...] and Stress incontinence ( female) (male) N39.3 [facility] [address] [place] [id number] [place] [address] [id number] Dec, Dental caries K02.9 [place] [address] [address]- 6817 November, [place] [address] [place] [id number] [place] [address] 46229- 3447 November, Essential hypertension I10 ; Other chronic pain G89.29 ; Gastroesophageal reflux disease without esophagitis K21.9 and Anxiety F41.9 [facility] [address] [place] [address] [id number] November, Dental examination Z01.20 [facility] [address] [place] [id number] [place] [address] 07041- 0046 Oct, Recurrent major depressive disorder, in full remission F33.42 [place] [address] [place] [id number] [place] [address] 11654- 2564 Sep, Other chronic pain G89.29 [place] [address] [place] [id number] [place] [address] 62222- 0685 Sep, Other chronic pain G89.29 and Bipolar 1 disorder F31.9 [place] [id number] [place] [address] 80656- 0832 Aug, Other chronic pain G89.29 [place] [address] [place] [id number] [place] [address] 36793- 7392 Jul, Gastroesophageal reflux disease without esophagitis K21.9 [place] [address] [place] [id number] [place] [address] 84453- 5622 Jun, Migraine without status migrainosus, not intractable, unspecified migraine type G43.909 [place] [address] [place] [address] 33170- 9379 Jun, Type 2 diabetes mellitus with hyperosmolarity [...] ; Essential hypertension I10 and Hypercholesterolemia E78.00 [place] [address] [place] [id number] [place] [address] 09060- 6740 May, [place] [address] 96511- 0380 Apr, Edema, unspecified type R60.9 ; Type [...] Z23 and Stress incontinence (female) (male) N39.3 [place] [address] 32533- 9993 Apr, [place] [address] 33949- 0467 Mar, Headache above the eye region R51 ; Lumbago with sciatica, unspecified side M54.40 ; Edema, unspecified type R60.9 and Migraine without status migrainosus, not intractable, unspecified migraine type G43.909 [place] [address] [place] [id number] [place] [address] 51185- 7636 Mar, Chronic obstructive pulmonary disease, unspecified COPD type J44.9 ; Type 2 diabetes mellitus with hyperosmolarity without coma, without long-term current use of insulin E11.00 ; Other chronic pain G89.29 ; Migraine without status migrainosus, not intractable, unspecified migraine type G43.909 ; Left-sided chest wall pain R07.89 and Anxiety about health F41.[address] 92058- 2107 Mar, [place] [address] 81399- 9220 Mar, [place] [address] [place] [address]- 3649 Mar, [place] [address] [place] [id number] [place] [address] 44092- 3619 Feb, [place] [address] [place] [address] 37027- 0459 Feb, [place] [address] [place] [id number] [place] [address] 35006- 2944 Feb, Chronic fatigue R53.82 ; Lumbago with sciatica, unspecified side M54.40 ; Gastroesophageal reflux disease with esophagitis K21.0 ; Other chronic pain G89.29 ; Morbid obesity due to excess calories E66.01 ; Migraine without status migrainosus, not intractable, unspecified migraine type G43.909 and Edema, unspecified type R60.9 [facility] [address] [place] [address] [id number] Feb, Dental examination Z01.20 [place] [address] [place] [id number] [place] [address] 21096- 6244 Feb, [place] [address] [place] [id number] [place] [address] 27885- 3036 Feb, Type 2 diabetes mellitus with hyperosmolarity without coma, without long-term current use of insulin E11.00 ; Chronic fatigue R53.82 ; Gastroesophageal reflux disease with esophagitis K21.0 ; Morbid obesity due to excess calories E66.01 ; Lumbago with sciatica, unspecified side M54.40 and Other chronic pain G89.29 [place] [address] [place] [address] 91468- 2092 Feb, Type 2 diabetes mellitus with hyperosmolarity without coma, without long-term current use of insulin E11.00 ; Chronic fatigue R53.82 ; Gastroesophageal reflux disease with esophagitis K21.0 ; Morbid obesity due to excess calories E66.01 ; Lumbago with sciatica, unspecified side M54.40 and Other chronic pain G89.29 [facility] [address] [place] [address] [id number] Feb, Dental examination Z01.20 [facility] [address] [id number] [place] [address] 2546 Jan, [facility] [address] [facility] [id number], [place] [address]- 2546 Mar, [facility] [address] [place] [id number] [id number] Feb, Dental examination V72.2 [facility] [address] [facility] [id number], [place] [address] 2546 Oct, [facility] [address] [facility] [id number] [place] [address] 2546 Oct, [facility] [address] [place] [id number] [place] [address]- 2546 Aug, [facility] [address] [place] [address]- 2416 Aug, [facility] [address] [place] [id number] [address]- 9666 Jul, [facility] [address] [place] [id number] [place] [address]- 5886 Jul, [facility] [address] [place] [id number] [address]- 0876 Jun, [facility] [address] [place] [id number] [place] [address]- 0986 Jun, [facility] [address] [facility] [id number], [place] [address]- 2546 Jun, [facility] [address] [facility] [id number], [place] [address]- 2906 Jun, [facility] [address] [facility] [id number] [place] [address]- 2546 Jun, [facility] [address] [place] [id number] [address]- 9266 Jun, [facility] [place] [facility] [address] [id number] [place] [address]- 9509 Jun, [facility] [place] [facility] [address] [id number] [place] [address]- 5256 Jun, [facility] [place] [facility] [address] [id number] [place] 5964 Jun, [facility] [place] [facility] [address] [id number] [place] [address]- 8084 Jun, [facility] [place] [facility] [address] [id number] [place] [address]- 8299 Jun, [facility] [place] [facility] [address] [id number] [place] [address]- 2046 Jun, [facility] [place] [facility] [address] [id number] [place] [address]- 9845 Jun, [facility] [place] [facility] [address] [id number] [place] [address]- 6257 May, [facility] [place] [facility] [address] [id number] [place] [address]- 6922 May, [facility] [place] [facility] [address] [id number] [place] [address]- 4632 May, [facility] [place] [facility] [address] [id number] [place] [address]- 2303 May, [facility] [place] [facility] [address] [id number] [place] [address]- 5086 Apr, [facility] [place] [facility] [address] [id number] [place] [address]- 3039 Apr, [facility] [place] [facility] [address] [id number] [place] [address]- 3100 Apr, [facility] [place] [facility] [address] [id number] [place] [address]- 5783 Apr, [facility] [place] [facility] [address] [id number] [place] [address]- 0041 Apr, [facility] [address] [facility] [id number][place]- 2004 Apr, [facility] [address] [facility] [id number], [place] [address]- 9966 Apr, [facility] [address] [facility] [id number], [place] [address]- 9484 Apr, [facility] [address] [facility] [id number], [place] [address]- 0961 Apr, [facility] [address] [facility] [id number]- 7606 Apr, [facility] [address] [facility] [id number]- 9624 Mar, [facility] [address] [facility] [id number][place]- 9163 Mar, [facility] [address] [facility] [id number], [place] [address]- 5994 Feb, [facility] [address] [facility] [id number], [place] [address]- 3221 Feb, [facility] [address] [place] [id number] [address]- 9450 Feb, [facility] [address] [place] [id number], [place] [address]- 9549 Feb, [facility] [address] [place] [id number], [place] [address]- 0334 Jan, [facility] [address] [facility] [id number][place]- 5413 Jan, IMMUNIZATIONS No Known Immunizations SOCIAL HISTORY Never Assessed REASON FOR VISIT PLAN OF CARE VITAL SIGNS MEDICATIONS Medication Instructions Dosage Frequency Start Date End Date Duration Status Naproxen 500 mg Orally 2 times a day 1 tablet as needed 12h 30 days Active RESULTS No Results [...] Hospitalization History psychiatric stay s/p overdose in [place] in 2006 Hospitalization History chest pain and UTI 02/2017 Hospitalization History [facility] [place]- UTI 11/23/2017
--- OUTSIDE RECORDS SUMMARY | 2018-04-14 19:12 | XMS REPORT ---
Author Author OBINNA HARDING [facility] Address [address] [place] [address] Care Team Providers Care Glassie Name Role Phone OBINNA HARDING Unavailable PROBLEMS Type Condition ICD9-CM Code BYG02-IZ Code Onset Dates Condition Status SNOMED Code Problem Essential hypertension I10 Active 42186386 Problem Recurrent major depressive disorder, in full remission F33.42 Active 227323081 Problem Anxiety F41.9 Active 11484480 Problem Chronic migraine without aura without status migrainosus, not intractable G43.709 Active 816805518 Problem CPAP (continuous positive airway pressure) dependence Z99.89 Active 357150866 Problem Mixed incontinence urge and stress N39.46 Active 964533309 Problem 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 Active 9116458235831414 Problem 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.29 Active 087256501 Problem Proteinuria, unspecified R80.9 Active 79916445 Problem Multinodular goiter E04.2 Active 224217956 Problem Type 2 diabetes mellitus with hyperglycemia, without long-term current use of insulin E11.65 Active 76300999 Problem Chronic obstructive pulmonary disease, unspecified COPD type J44.9 Active 95457099 Problem Morbid obesity due to excess calories E66.01 Active 573509484 Problem Primary osteoarthritis of left knee M17.12 Active 000640131430379 Problem Obstructive sleep apnea syndrome G47.33 Active 90332194 Problem Lumbago with sciatica, unspecified side M54.40 Active 176373213 Problem Other chronic pain G89.29 Active 46394902 Problem Chronic fatigue R53.82 Active 83733678 Problem Hypercholesterolemia E78.00 Active 99072070 Problem Gastroesophageal reflux disease with esophagitis K21.0 Active 524490552 Problem Bipolar 1 disorder F31.9 Active 493212047 ALLERGIES No Information ENCOUNTERS Encounter Location Date Diagnosis [facility] [id number] [place] [address]305- 0612 Jan, [place] [address] [place] [address] 26192- 2680 November, [place] [id number] [place] [address] 37376- 1009 November, Chronic migraine without aura without status migrainosus, not intractable G43.709 [place] [id number] [place] [address] 43254- 7187 November, Type 2 diabetes mellitus with hyperglycemia, without long- term current use of insulin E11.65 ; Dysuria R30.0 ; Acute cystitis without hematuria N30.00 ; Lumbago with sciatica, unspecified side M54.40 ; Other chronic pain G89.29 ; Chronic obstructive pulmonary disease, unspecified COPD type J44.9 ; Chest pain, unspecified type R07.9 ; Absent pedal pulses R09.89 and BMI 40.0-44.9, adult Z68.41 [place] [id number] [place] [address] 35914- 5532 Oct, Recurrent major depressive disorder, in full remission F33.42 and Anxiety F41.9 [place] [id number] [place] [address] 82794- 5544 Sep, Other chronic pain G89.29 [place] [id number] [place] [address] 74357- 1173 Aug, Other chronic pain G89.29 [place] [id number] [place] [address] 72652- 3440 Aug, Chronic obstructive pulmonary disease, unspecified COPD [...] goiter E04.2 and BMI 40.0-44.9, adult Z68.41 [place] [address] [place] [id number] [place] [address] 78318- 0868 Aug, [place] [address] 97930- 1506 Jul, Type 2 diabetes mellitus with hyperglycemia, without long- term current use of insulin E11.65 [place] [address] 05654- 5960 Jul, Type 2 diabetes mellitus with hyperglycemia, without long- term current use of insulin E11.65 [place] [address] [place] [id number] [place] [address] 32666- 4110 Jul, [place] [address] 13674- 4877 Jul, Type 2 diabetes mellitus with hyperglycemia, [...] immunization Z23 and BMI 40.0-44.9, adult Z68.41 [place] [address] [place] [id number] [place] [address] 13096- 0717 Jun, Migraine without status migrainosus, not intractable, unspecified migraine type G43.909 ; Hypercholesterolemia E78.00 and Lumbago with sciatica, unspecified side M54.40 [place] [id number] [place] [address] 47320- 5127 Jun, Recurrent major depressive disorder, in full remission F33.42 and Anxiety F41.9 [place] [address] 68176- 6086 Jun, [place] [address] 38819- 6502 May, Hypercholesterolemia E78.00 ; 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.29 ; Migraine without status migrainosus , not intractable, unspecified migraine type G43.909 and Lumbago with sciatica, unspecified side M54.40 [place] [address] 88090- 6353 14 May, 2017 Multinodular goiter E04.2 [place] [address] 89472- 8975 May, [place] [address] 04725- 4490 Apr, Multinodular goiter E04.2 [place] [address] [place] [id number] [place] [address] 67349- 2219 Apr, Abnormal imaging of thyroid R94.6 ; Hypercholesterolemia E78.00 and 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.29 [place] [address] [place] [id number] [place] [address] 56854- 0568 Mar, Abnormal imaging of thyroid R94.6 [place] [address] [place] [id number] [place] [address] 15229- 8851 20 Mar, 2017 Chest wall mass R22.2 [place] [address] [place] [id number] [place] [address] 98290- 2010 07 Mar, 2017 Type 2 diabetes mellitus with hyperglycemia, without long- term current use of insulin E11.65 ; Gastroesophageal reflux disease with esophagitis K21.0 ; Hypercholesterolemia E78.00 ; Proteinuria, unspecified R80.9 ; 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.29 ; Chest wall mass R22.2 and Precordial pain R07.2 [place] [address] [address]- 5157 Feb, Recurrent major depressive disorder, in full remission F33.42 [place] [address] [place] [id number] [place] [address] 37903- 6873 Feb, Recurrent major depressive disorder, in full remission F33.42 and Anxiety F41.9 [place] [address] [place] [id number] [place] [address] 89127- 5929 Feb, [facility] [address] [place] [address] [id number] Jan, Dental examination Z01.20 and Dental caries K02.9 [place] [id number] [place] [address] 70045- 4115 Dec, [place] [address] [place] [id number] [place] [address] 58248- 4925 Dec, [place] [address] [place] [id number] [place] [address] 97719- 8922 Dec, Type 2 diabetes mellitus with hyperosmolarity [...] and Stress incontinence ( female) (male) N39.3 [facility] [address] [place] [id number] [place] [address] [id number] Dec, Dental caries K02.9 [place] [address] [address]- 6142 November, [place] [address] [place] [id number] [place] [address] 84108- 5771 November, Essential hypertension I10 ; Other chronic pain G89.29 ; Gastroesophageal reflux disease without esophagitis K21.9 and Anxiety F41.9 [facility] [address] [place] [address] [id number] November, Dental examination Z01.20 [facility] [address] [place] [id number] [place] [address] 56166- 9026 Oct, Recurrent major depressive disorder, in full remission F33.42 [place] [address] [place] [id number] [place] [address] 72666- 2770 Sep, Other chronic pain G89.29 [place] [address] [place] [id number] [place] [address] 81778- 9399 Sep, Other chronic pain G89.29 and Bipolar 1 disorder F31.9 [place] [id number] [place] [address] 67734- 2162 Aug, Other chronic pain G89.29 [place] [address] [place] [id number] [place] [address] 97857- 4478 Jul, Gastroesophageal reflux disease without esophagitis K21.9 [place] [address] [place] [id number] [place] [address] 04672- 5027 Jun, Migraine without status migrainosus, not intractable, unspecified migraine type G43.909 [place] [address] [place] [address] 05747- 8045 Jun, Type 2 diabetes mellitus with hyperosmolarity [...] ; Essential hypertension I10 and Hypercholesterolemia E78.00 [place] [address] [place] [id number] [place] [address] 40660- 6598 May, [place] [address] 73659- 4632 Apr, Edema, unspecified type R60.9 ; Type [...] Z23 and Stress incontinence (female) (male) N39.3 [place] [address] 19030- 4574 Apr, [place] [address] 27589- 3717 Mar, Headache above the eye region R51 ; Lumbago with sciatica, unspecified side M54.40 ; Edema, unspecified type R60.9 and Migraine without status migrainosus, not intractable, unspecified migraine type G43.909 [place] [address] [place] [id number] [place] [address] 35352- 1459 Mar, Chronic obstructive pulmonary disease, unspecified COPD type J44.9 ; Type 2 diabetes mellitus with hyperosmolarity without coma, without long-term current use of insulin E11.00 ; Other chronic pain G89.29 ; Migraine without status migrainosus, not intractable, unspecified migraine type G43.909 ; Left-sided chest wall pain R07.89 and Anxiety about health F41.[address] 68470- 6995 Mar, [place] [address] 37411- 6350 Mar, [place] [address] [place] [address]- 0509 Mar, [place] [address] [place] [id number] [place] [address] 87085- 1679 Feb, [place] [address] [place] [address] 25523- 2231 Feb, [place] [address] [place] [id number] [place] [address] 87146- 1041 Feb, Chronic fatigue R53.82 ; Lumbago with sciatica, unspecified side M54.40 ; Gastroesophageal reflux disease with esophagitis K21.0 ; Other chronic pain G89.29 ; Morbid obesity due to excess calories E66.01 ; Migraine without status migrainosus, not intractable, unspecified migraine type G43.909 and Edema, unspecified type R60.9 [facility] [address] [place] [address] [id number] Feb, Dental examination Z01.20 [place] [address] [place] [id number] [place] [address] 91029- 2586 Feb, [place] [address] [place] [id number] [place] [address] 92631- 1033 Feb, Type 2 diabetes mellitus with hyperosmolarity without coma, without long-term current use of insulin E11.00 ; Chronic fatigue R53.82 ; Gastroesophageal reflux disease with esophagitis K21.0 ; Morbid obesity due to excess calories E66.01 ; Lumbago with sciatica, unspecified side M54.40 and Other chronic pain G89.29 [place] [address] [place] [address] 83226- 2295 Feb, Type 2 diabetes mellitus with hyperosmolarity without coma, without long-term current use of insulin E11.00 ; Chronic fatigue R53.82 ; Gastroesophageal reflux disease with esophagitis K21.0 ; Morbid obesity due to excess calories E66.01 ; Lumbago with sciatica, unspecified side M54.40 and Other chronic pain G89.29 [facility] [address] [place] [address] [id number] Feb, Dental examination Z01.20 [facility] [address] [id number] [place] [address] 2546 Jan, [facility] [address] [facility] [id number] [address]- 2546 Mar, [facility] [address] [place] [id number] [id number] Feb, Dental examination V72.2 [facility] [address] [facility] [id number] [address] 2546 Oct, [facility] [address] [facility] [id number] [place] [address] 2546 Oct, [facility] [address] [place] [id number] [place] [address]- 2546 Aug, [facility] [address] [address]- 3376 Aug, [facility] [address] [place] [id number] [address]- 3896 Jul, [facility] [address] [place] [id number] [place] [address]- 4626 Jul, [facility] [address] [place] [id number] [address]- 1826 Jun, [facility] [address] [place] [id number] [place] [address]- 0886 Jun, [facility] [address] [facility] [id number] [address]- 2546 Jun, [facility] [address] [facility] [id number], [place] [address]- 1646 Jun, [facility] [address] [facility] [id number] [place] [address]- 2546 Jun, [facility] [address] [place] [id number] [address]- 7676 Jun, [facility] [place] [facility] [address] [id number] [place] [address]- 3681 Jun, [facility] [place] [facility] [address] [id number] [place] [address]- 8079 Jun, [facility] [place] [facility] [address] [id number] [place] 9840 Jun, [facility] [place] [facility] [address] [id number] [place] [address]- 8947 Jun, [facility] [place] [facility] [address] [id number] [place] [address]- 1527 Jun, [facility] [place] [facility] [address] [id number] [place] [address]- 5424 Jun, [facility] [place] [facility] [address] [id number] [place] [address]- 4485 Jun, [facility] [place] [facility] [address] [id number] [place] [address]- 3189 May, [facility] [place] [facility] [address] [id number] [place] [address]- 9429 May, [facility] [place] [facility] [address] [id number] [place] [address]- 0587 May, [facility] [place] [facility] [address] [id number] [place] [address]- 9603 May, [facility] [place] [facility] [address] [id number] [place] [address]- 0054 Apr, [facility] [place] [facility] [address] [id number] [place] [address]- 4165 Apr, [facility] [place] [facility] [address] [id number] [place] [address]- 1569 Apr, [facility] [place] [facility] [address] [id number] [place] [address]- 1465 Apr, [facility] [place] [facility] [address] [id number] [place] [address]- 6486 Apr, [facility] [address] [facility] [id number] 7313 Apr, [facility] [address] [facility] [id number] [address]- 5019 Apr, [facility] [address] [place] [id number] 2023 Apr, [facility] [address] [facility] [id number] 4979 Apr, [facility] [address] [facility] [id number][place] [address]- 5271 Apr, [facility] [address] [facility] [id number]- 1231 Mar, [facility] [address] [address]- 5359 Mar, [facility] [address] [address]- 5631 Feb, [facility] [address] [address]- 2058 Feb, [facility] [address] [address]- 1980 Feb, [facility] [address] [place] [id number] [address]- 6335 Feb, [facility] [address] [place] [id number] [address]- 7341 Jan, [facility] [address] [place] [id number] [address]- 0693 Jan, IMMUNIZATIONS No Known Immunizations SOCIAL HISTORY Never Assessed REASON FOR VISIT GABAPENTIN note PLAN OF CARE VITAL SIGNS MEDICATIONS Unknown [...] Hospitalization History psychiatric stay s/p overdose in [place] in 2006 Hospitalization History chest pain and UTI 02/2017 Hospitalization History [facility] [place]- UTI 11/23/2017
--- OUTSIDE RECORDS SUMMARY | 2018-04-14 19:13 | XMS REPORT ---
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 Name Role Phone OBINNA HARDING Unavailable PROBLEMS Type Condition ICD9-CM Code [id number] Code Onset Dates Condition Status SNOMED Code Problem Essential hypertension I10 Active 15460955 Problem Recurrent major depressive disorder, in full remission F33.42 Active 599343408 Problem Anxiety F41.9 Active 25208841 Problem Chronic migraine without aura without status migrainosus, not intractable G43.709 Active 468472782 Problem CPAP (continuous positive airway pressure) dependence Z99.89 Active 905010631 Problem Mixed incontinence urge and stress N39.46 Active 334973314 Problem 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 Active 2858469185252247 Problem 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.29 Active 977779785 Problem Proteinuria, unspecified R80.9 Active 01765561 Problem Multinodular goiter E04.2 Active 702063513 Problem Type 2 diabetes mellitus with hyperglycemia, without long-term current use of insulin E11.65 Active 87972554 Problem Chronic obstructive pulmonary disease, unspecified COPD type J44.9 Active 22856663 Problem Morbid obesity due to excess calories E66.01 Active 183828928 Problem Primary osteoarthritis of left knee M17.12 Active 414952332018403 Problem Obstructive sleep apnea syndrome G47.33 Active 18000531 Problem Lumbago with sciatica, unspecified side M54.40 Active 176088873 Problem Other chronic pain G89.29 Active 67652363 Problem Chronic fatigue R53.82 Active 18289096 Problem Hypercholesterolemia E78.00 Active 32704797 Problem Gastroesophageal reflux disease with esophagitis K21.0 Active 356534423 Problem Bipolar 1 disorder F31.9 Active 177878009 ALLERGIES No Information ENCOUNTERS Encounter Location Date Diagnosis [facility] [address] [address] Jan, [facility] [address] [facility] [id number] [id number] November, [place] [id number] [place] [address]41- 3364 November, Chronic migraine without aura without status migrainosus, not intractable G43.709 [place] [address] [place] [address] 44757- 1577 November, Type 2 diabetes mellitus with hyperglycemia, without long- term current use of insulin E11.65 ; Dysuria R30.0 ; Acute cystitis without hematuria N30.00 ; Lumbago with sciatica, unspecified side M54.40 ; Other chronic pain G89.29 ; Chronic obstructive pulmonary disease, unspecified COPD type J44.9 ; Chest pain, unspecified type R07.9 ; Absent pedal pulses R09.89 and BMI 40.0-44.9, adult Z68.41 [place] [address] [place] [address] 45884- 2445 Oct, Recurrent major depressive disorder, in full remission F33.42 and Anxiety F41.9 [address] [place] [address] 47690- 4325 Sep, Other chronic pain G89.29 [place] [id number] [place] [address] 63859- 8777 Aug, Other chronic pain G89.29 [address] [place] [address] 26333- 8111 Aug, Chronic obstructive pulmonary disease, unspecified COPD [...] goiter E04.2 and BMI 40.0-44.9, adult Z68.41 [place] [address] [place] [id number] [place] [address] 07337- 7088 Aug, [place] [address] [address] Jul, Type 2 diabetes mellitus with hyperglycemia, without long- term current use of insulin E11.65 [place] [address] 18601- 1582 Jul, Type 2 diabetes mellitus with hyperglycemia, without long- term current use of insulin E11.65 [place] [address] 07714- 7058 Jul, [place] [address] [address]32- 8398 Jul, Type 2 diabetes mellitus with hyperglycemia, [...] immunization Z23 and BMI 40.0-44.9, adult Z68.41 [place] [address] 28980- 6801 Jun, Migraine without status migrainosus, not intractable, unspecified migraine type G43.909 ; Hypercholesterolemia E78.00 and Lumbago with sciatica, unspecified side M54.40 [place] [address] 23447- 6254 Jun, Recurrent major depressive disorder, in full remission F33.42 and Anxiety F41.9 [place] [address] [place] [id number] [place] [address] 20889- 3116 Jun, [place] [address] [place] [id number] [place] [address] 01564- 7335 May, Hypercholesterolemia E78.00 ; 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.29 ; Migraine without status migrainosus , not intractable, unspecified migraine type G43.909 and Lumbago with sciatica, unspecified side M54.40 [place] [address] 67695- 3539 14 May, 2017 Multinodular goiter E04.2 [place] [address] 17505- 0246 May, [place] [address] 82823- 1456 Apr, Multinodular goiter E04.2 [place] [address] [place] [id number] [place] [address] 94150- 6999 06 Apr, 2017 Abnormal imaging of thyroid R94.6 ; Hypercholesterolemia E78.00 and 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.29 [place] [address] [place] [id number] [place] [address] 64653- 5856 Mar, Abnormal imaging of thyroid R94.6 [place] [address] [place] [id number] [place] [address] 74834- 9888 20 Mar, 2017 Chest wall mass R22.2 [place] [address] [place] [id number] [place] [address] 57806- 9691 07 Mar, 2017 Type 2 diabetes mellitus with hyperglycemia, without long- term current use of insulin E11.65 ; Gastroesophageal reflux disease with esophagitis K21.0 ; Hypercholesterolemia E78.00 ; Proteinuria, unspecified R80.9 ; 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.29 ; Chest wall mass R22.2 and Precordial pain R07.2 [place] [address] [address] Feb, Recurrent major depressive disorder, in full remission F33.42 [place] [address] [place] [id number] [place] [address] 01803- 4791 Feb, Recurrent major depressive disorder, in full remission F33.42 and Anxiety F41.9 [place] [address] [place] [id number] [place] [address] 37202- 3819 Feb, [facility] [address] [place] [id number] [place] [address] [id number] Jan, Dental examination Z01.20 and Dental caries K02.9 [place] [id number] [place] [address] 42928- 4589 Dec, [place] [address] [place] [id number] [place] [address] 90494- 6899 Dec, [place] [address] [place] [id number] [place] [address] 63472- 4203 Dec, Type 2 diabetes mellitus with hyperosmolarity [...] and Stress incontinence ( female) (male) N39.3 [facility] [address] [place] [id number] Dec, Dental caries K02.9 [facility] [address] [address] November, [place] [address] [place] [id number] [place] [address] 62927- 4093 November, Essential hypertension I10 ; Other chronic pain G89.29 ; Gastroesophageal reflux disease without esophagitis K21.9 and Anxiety F41.9 [facility] [address] [place] [id number] [place] [id number] November, Dental examination Z01.20 [facility] [address] [place] [id number] [place] [address] 97327- 0489 Oct, Recurrent major depressive disorder, in full remission F33.42 [place] [address] [place] [id number] [place] [address] 58114- 5705 Sep, Other chronic pain G89.29 [place] [address] [place] [id number] [place] [address] 09040- 2252 Sep, Other chronic pain G89.29 and Bipolar 1 disorder F31.9 [place] [address] [place] [id number] [place] [address] 27420- 7923 Aug, Other chronic pain G89.29 [place] [address] [place] [id number] [place] [address] 05309- 6968 Jul, Gastroesophageal reflux disease without esophagitis K21.9 [place] [address] [place] [id number] [place] [address] 39426- 0273 Jun, Migraine without status migrainosus, not intractable, unspecified migraine type G43.909 [place] [address] [place] [address] 26507- 8156 Jun, Type 2 diabetes mellitus with hyperosmolarity [...] ; Essential hypertension I10 and Hypercholesterolemia E78.00 [place] [address] 22965- 0688 May, [place] [address] 29238- 9666 Apr, Edema, unspecified type R60.9 ; Type [...] Z23 and Stress incontinence (female) (male) N39.3 [place] [address] 52437- 1517 Apr, [place] [address] 07839- 1750 Mar, Headache above the eye region R51 ; Lumbago with sciatica, unspecified side M54.40 ; Edema, unspecified type R60.9 and Migraine without status migrainosus, not intractable, unspecified migraine type G43.909 [place] [address] 93519- 7408 Mar, Chronic obstructive pulmonary disease, unspecified COPD type J44.9 ; Type 2 diabetes mellitus with hyperosmolarity without coma, without long-term current use of insulin E11.00 ; Other chronic pain G89.29 ; Migraine without status migrainosus, not intractable, unspecified migraine type G43.909 ; Left-sided chest wall pain R07.89 and Anxiety about health F41.8 [place] [address] 07820- 6780 Mar, [place] [address] 30815- 4684 Mar, [place] [address] 42816- 2004 Mar, [place] [address] [address] 7801 Feb, [place] [address] [address]- 5814 Feb, [place] [address] [address]- 8128 Feb, Chronic fatigue R53.82 ; Lumbago with sciatica, unspecified side M54.40 ; Gastroesophageal reflux disease with esophagitis K21.0 ; Other chronic pain G89.29 ; Morbid obesity due to excess calories E66.01 ; Migraine without status migrainosus, not intractable, unspecified migraine type G43.909 and Edema, unspecified type R60.9 [facility] [address] [address] Feb, Dental examination Z01.20 [place] [address] [place] [address] 18044- 1491 Feb, [place] [address] [place] [address] 47922- 8166 Feb, Type 2 diabetes mellitus with hyperosmolarity without coma, without long-term current use of insulin E11.00 ; Chronic fatigue R53.82 ; Gastroesophageal reflux disease with esophagitis K21.0 ; Morbid obesity due to excess calories E66.01 ; Lumbago with sciatica, unspecified side M54.40 and Other chronic pain G89.29 [place] [address] [place] [id number] [address]- 8215 Feb, Type 2 diabetes mellitus with hyperosmolarity without coma, without long-term current use of insulin E11.00 ; Chronic fatigue R53.82 ; Gastroesophageal reflux disease with esophagitis K21.0 ; Morbid obesity due to excess calories E66.01 ; Lumbago with sciatica, unspecified side M54.40 and Other chronic pain G89.29 [facility] [address] [id number] Feb, Dental examination Z01.20 [facility] [address] [id number] [place] [address]- 7[address] Jan, [facility] [address] [facility] [id number] [place] [address]- 8996 Mar, [facility] [address] [id number] [id number] Feb, Dental examination V72.2 [facility] [address] [id number] [address]- 4463 Oct, [facility] [address] [facility] [address] [facility] [id number] [place] [address], [place] [address]- 3570 Oct, [facility] [address] [facility] [address] [facility] [id number] [place] [address] 132929- 3211 Aug, [facility] [address] [place] [address] 25397- 4256 Aug, [facility] [address] [address]- 3224 Jul, [facility] [address] 8230 Jul, [facility] [address] 5766 Jun, [facility] [address] [address]- 1168 Jun, [facility] [address] [facility] [facility] [id number] 3682 Jun, [facility] [address] [facility] [facility] [id number] [address]- 3190 Jun, [facility] [address] [facility] [id number] [address]- 7706 Jun, [facility] [address] [address]- 3936 Jun, [facility] [place] [facility] [address] [id number] [place] [address]- 5381 Jun, [facility] [place] [facility] [address] [id number] [place] 3446 Jun, [facility] [place] [facility] [address] [id number] [place] [address]- 4476 Jun, [facility] [place] [facility] [address] [id number] [place] [address]- 2840 Jun, [facility] [place] [facility] [address] [id number] [place] [address]- 4777 Jun, [facility] [place] [facility] [address] [id number] [place] 2738 Jun, [facility] [place] [facility] [address] [id number] [place] 7682 Jun, [facility] [place] [facility] [address] [id number] [place] [address]- 8073 May, [facility] [place] [facility] [address] [id number] [place] [address]- 2172 May, [facility] [place] [facility] [address] [id number] [place] [address]- 8298 May, [facility] [place] [facility] [address] [id number] [place] [address]- 3267 May, [facility] [place] [facility] [address] [id number] [place] [address]- 2796 Apr, [facility] [place] [facility] [address] [id number] [place] [address]- 9041 Apr, [facility] [place] [facility] [address] [id number] [place] [address]- 7579 Apr, [facility] [place] [facility] [address] [id number] [place] 4976 Apr, [facility] [place] [facility] [address] [id number] [place] [address]- 5496 Apr, [facility] [address] [facility] [id number] [address]- 1678 Apr, [facility] [address] [facility] [facility] [id number]226 Apr, [facility] [address] [place] [id number]12 Apr, [facility] [address] [facility] [id number]755 Apr, [facility] [address] [facility] [id number] [address]- 7704 Apr, [facility] [address] [facility] [id number]674 Mar, [facility] [address] [place] [id number] [address] 1689 Mar, [facility] [address] [place] [id number] [address]- 5839 Feb, [facility] [address] [place] [id number] [address] 0728 Feb, [facility] [address] [address] 7531 Feb, [facility] [address] [place] [id number] [address] 6139 Feb, [facility] [address] [place] [id number] [address]- [address]88 Jan, [facility] [address] [place] [id number] [address]- 3057 Jan, IMMUNIZATIONS No Known Immunizations SOCIAL HISTORY Never Assessed REASON FOR VISIT Requests return call PLAN OF CARE VITAL SIGNS MEDICATIONS Unknown [...] Hospitalization History psychiatric stay s/p overdose in [place] in 2006 Hospitalization History chest pain and UTI 02/2017 Hospitalization History [facility]- UTI 11/23/2017
--- OUTSIDE RECORDS SUMMARY | 2018-04-14 19:13 | XMS REPORT ---
Author Author OBINNA HARDING [facility] Address [address] [place] [address] Care Team Providers Care Allied Health Teacher Name Role Phone OBINNA HARDING Unavailable PROBLEMS Type Condition ICD9-CM Code TMD70-XZ Code Onset Dates Condition Status SNOMED Code Problem Essential hypertension I10 Active 53820554 Problem Recurrent major depressive disorder, in full remission F33.42 Active 904222135 Problem Anxiety F41.9 Active 29563341 Problem Chronic migraine without aura without status migrainosus, not intractable G43.709 Active 853404523 Problem CPAP (continuous positive airway pressure) dependence Z99.89 Active 674340400 Problem Mixed incontinence urge and stress N39.46 Active 914966850 Problem 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 Active 9693512811852690 Problem 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.29 Active 451028288 Problem Proteinuria, unspecified R80.9 Active 12169557 Problem Multinodular goiter E04.2 Active 296865352 Problem Type 2 diabetes mellitus with hyperglycemia, without long-term current use of insulin E11.65 Active 71762366 Problem Chronic obstructive pulmonary disease, unspecified COPD type J44.9 Active 16071497 Problem Morbid obesity due to excess calories E66.01 Active 228489734 Problem Primary osteoarthritis of left knee M17.12 Active 951549338421907 Problem Obstructive sleep apnea syndrome G47.33 Active 26194371 Problem Lumbago with sciatica, unspecified side M54.40 Active 286341261 Problem Other chronic pain G89.29 Active 32714271 Problem Chronic fatigue R53.82 Active 10412648 Problem Hypercholesterolemia E78.00 Active 54357355 Problem Gastroesophageal reflux disease with esophagitis K21.0 Active 784154950 Problem Bipolar 1 disorder F31.9 Active 095862815 ALLERGIES No Information ENCOUNTERS Encounter Location Date Diagnosis [facility] [id number] [place] [address]40- 7405 Jan, [place] [address] [place] [address] 66993- 6603 November, [place] [id number] [place] [address] 37063- 9968 November, Chronic migraine without aura without status migrainosus, not intractable G43.709 [place] [id number] [place] [address] 90965- 5681 November, Type 2 diabetes mellitus with hyperglycemia, without long- term current use of insulin E11.65 ; Dysuria R30.0 ; Acute cystitis without hematuria N30.00 ; Lumbago with sciatica, unspecified side M54.40 ; Other chronic pain G89.29 ; Chronic obstructive pulmonary disease, unspecified COPD type J44.9 ; Chest pain, unspecified type R07.9 ; Absent pedal pulses R09.89 and BMI 40.0-44.9, adult Z68.41 [place] [id number] [place] [address] 62507- 9993 Oct, Recurrent major depressive disorder, in full remission F33.42 and Anxiety F41.9 [place] [id number] [place] [address] 96224- 9552 Sep, Other chronic pain G89.29 [place] [id number] [place] [address] 07489- 7621 Aug, Other chronic pain G89.29 [place] [id number] [place] [address] 94490- 2021 Aug, Chronic obstructive pulmonary disease, unspecified COPD [...] goiter E04.2 and BMI 40.0-44.9, adult Z68.41 [place] [address] [place] [id number] [place] [address] 75056- 0862 Aug, [place] [address] 90291- 3145 Jul, Type 2 diabetes mellitus with hyperglycemia, without long- term current use of insulin E11.65 [place] [address] 74083- 2793 Jul, Type 2 diabetes mellitus with hyperglycemia, without long- term current use of insulin E11.65 [place] [address] [place] [id number] [place] [address] 28778- 3163 Jul, [place] [address] 40926- 6292 Jul, Type 2 diabetes mellitus with hyperglycemia, [...] immunization Z23 and BMI 40.0-44.9, adult Z68.41 [place] [address] [place] [id number] [place] [address] 61332- 2379 Jun, Migraine without status migrainosus, not intractable, unspecified migraine type G43.909 ; Hypercholesterolemia E78.00 and Lumbago with sciatica, unspecified side M54.40 [place] [id number] [place] [address] 99504- 2699 Jun, Recurrent major depressive disorder, in full remission F33.42 and Anxiety F41.9 [place] [address] 40292- 0363 Jun, [place] [address] 23050- 8457 May, Hypercholesterolemia E78.00 ; 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.29 ; Migraine without status migrainosus , not intractable, unspecified migraine type G43.909 and Lumbago with sciatica, unspecified side M54.40 [place] [address] 34687- 5653 14 May, 2017 Multinodular goiter E04.2 [place] [address] 31499- 2491 May, [place] [address] 14241- 8827 Apr, Multinodular goiter E04.2 [place] [address] [place] [id number] [place] [address] 16710- 3879 Apr, Abnormal imaging of thyroid R94.6 ; Hypercholesterolemia E78.00 and 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.29 [place] [address] [place] [id number] [place] [address] 29537- 9485 Mar, Abnormal imaging of thyroid R94.6 [place] [address] [place] [id number] [place] [address] 66147- 2028 20 Mar, 2017 Chest wall mass R22.2 [place] [address] [place] [id number] [place] [address] 91509- 1426 07 Mar, 2017 Type 2 diabetes mellitus with hyperglycemia, without long- term current use of insulin E11.65 ; Gastroesophageal reflux disease with esophagitis K21.0 ; Hypercholesterolemia E78.00 ; Proteinuria, unspecified R80.9 ; 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.29 ; Chest wall mass R22.2 and Precordial pain R07.2 [place] [address] [address] 3902 Feb, Recurrent major depressive disorder, in full remission F33.42 [place] [address] [place] [id number] [place] [address] 32367- 0397 Feb, Recurrent major depressive disorder, in full remission F33.42 and Anxiety F41.9 [place] [address] [place] [id number] [place] [address] 60892- 4528 Feb, [facility] [address] [place] [address] [id number] Jan, Dental examination Z01.20 and Dental caries K02.9 [place] [id number] [place] [address] 91973- 2215 Dec, [place] [address] [place] [id number] [place] [address] 02523- 5613 Dec, [place] [address] [place] [id number] [place] [address] 16415- 9387 Dec, Type 2 diabetes mellitus with hyperosmolarity [...] and Stress incontinence ( female) (male) N39.3 [facility] [address] [place] [id number] [place] [address] [id number] Dec, Dental caries K02.9 [place] [address] [address] 9848 November, [place] [address] [place] [id number] [place] [address] 35446- 1738 November, Essential hypertension I10 ; Other chronic pain G89.29 ; Gastroesophageal reflux disease without esophagitis K21.9 and Anxiety F41.9 [facility] [address] [place] [address] [id number] November, Dental examination Z01.20 [facility] [address] [place] [id number] [place] [address] 40891- 7770 Oct, Recurrent major depressive disorder, in full remission F33.42 [place] [address] [place] [id number] [place] [address] 71423- 0050 Sep, Other chronic pain G89.29 [place] [address] [place] [id number] [place] [address] 67684- 1067 Sep, Other chronic pain G89.29 and Bipolar 1 disorder F31.9 [place] [id number] [place] [address] 35110- 2437 Aug, Other chronic pain G89.29 [place] [address] [place] [id number] [place] [address] 95610- 8899 Jul, Gastroesophageal reflux disease without esophagitis K21.9 [place] [address] [place] [id number] [place] [address] 20825- 4279 Jun, Migraine without status migrainosus, not intractable, unspecified migraine type G43.909 [place] [address] [place] [address] 21314- 9270 Jun, Type 2 diabetes mellitus with hyperosmolarity [...] ; Essential hypertension I10 and Hypercholesterolemia E78.00 [place] [address] [place] [id number] [place] [address] 87106- 3389 May, [place] [address] 69627- 9755 Apr, Edema, unspecified type R60.9 ; Type [...] Z23 and Stress incontinence (female) (male) N39.3 [place] [address] 32733- 8516 Apr, [place] [address] 75114- 7136 Mar, Headache above the eye region R51 ; Lumbago with sciatica, unspecified side M54.40 ; Edema, unspecified type R60.9 and Migraine without status migrainosus, not intractable, unspecified migraine type G43.909 [place] [address] [place] [id number] [place] [address] 67332- 5920 Mar, Chronic obstructive pulmonary disease, unspecified COPD type J44.9 ; Type 2 diabetes mellitus with hyperosmolarity without coma, without long-term current use of insulin E11.00 ; Other chronic pain G89.29 ; Migraine without status migrainosus, not intractable, unspecified migraine type G43.909 ; Left-sided chest wall pain R07.89 and Anxiety about health F41.[address] 91329- 8135 Mar, [place] [address] 38179- 0324 Mar, [place] [address] [place] [address]- 3305 Mar, [place] [address] [place] [id number] [place] [address] 58068- 0084 Feb, [place] [address] [place] [address] 62332- 7292 Feb, [place] [address] [place] [id number] [place] [address] 78493- 9881 Feb, Chronic fatigue R53.82 ; Lumbago with sciatica, unspecified side M54.40 ; Gastroesophageal reflux disease with esophagitis K21.0 ; Other chronic pain G89.29 ; Morbid obesity due to excess calories E66.01 ; Migraine without status migrainosus, not intractable, unspecified migraine type G43.909 and Edema, unspecified type R60.9 [facility] [address] [place] [address] [id number] Feb, Dental examination Z01.20 [place] [address] [place] [id number] [place] [address] 93983- 7301 Feb, [place] [address] [place] [id number] [place] [address] 91420- 8819 Feb, Type 2 diabetes mellitus with hyperosmolarity without coma, without long-term current use of insulin E11.00 ; Chronic fatigue R53.82 ; Gastroesophageal reflux disease with esophagitis K21.0 ; Morbid obesity due to excess calories E66.01 ; Lumbago with sciatica, unspecified side M54.40 and Other chronic pain G89.29 [place] [address] [place] [address] 14455- 6799 Feb, Type 2 diabetes mellitus with hyperosmolarity without coma, without long-term current use of insulin E11.00 ; Chronic fatigue R53.82 ; Gastroesophageal reflux disease with esophagitis K21.0 ; Morbid obesity due to excess calories E66.01 ; Lumbago with sciatica, unspecified side M54.40 and Other chronic pain G89.29 [facility] [address] [place] [address] [id number] Feb, Dental examination Z01.20 [facility] [address] [id number] [place] [address] 2546 Jan, [facility] [address] [facility] [id number] [address]- 2546 Mar, [facility] [address] [place] [id number] [id number] Feb, Dental examination V72.2 [facility] [address] [facility] [id number], [place] [address] 2546 Oct, [facility] [address] [facility] [id number] [place] [address] 2546 Oct, [facility] [address] [place] [id number] [place] [address]- 2546 Aug, [facility] [address] [address]- 5996 Aug, [facility] [address] [place] [id number] [address]- 4416 Jul, [facility] [address] [place] [id number] [place] [address]- 2856 Jul, [facility] [address] [place] [id number] [address]- 0876 Jun, [facility] [address] [place] [id number] [place] [address]- 0596 Jun, [facility] [address] [facility] [id number], [place] [address]- 2546 Jun, [facility] [address] [facility] [id number], [place] [address]- 9586 Jun, [facility] [address] [facility] [id number] [place] [address]- 2546 Jun, [facility] [address] [place] [id number] [address]- 2886 Jun, [facility] [place] [facility] [address] [id number] [place] [address]- 8330 Jun, [facility] [place] [facility] [address] [id number] [place] [address]- 0729 Jun, [facility] [place] [facility] [address] [id number] [place] 8384 Jun, [facility] [place] [facility] [address] [id number] [place] [address]- 5234 Jun, [facility] [place] [facility] [address] [id number] [place] [address]- 8702 Jun, [facility] [place] [facility] [address] [id number] [place] [address]- 9512 Jun, [facility] [place] [facility] [address] [id number] [place] [address]- 8159 Jun, [facility] [place] [facility] [address] [id number] [place] [address]- 3961 May, [facility] [place] [facility] [address] [id number] [place] [address]- 3299 May, [facility] [place] [facility] [address] [id number] [place] [address]- 3140 May, [facility] [place] [facility] [address] [id number] [place] [address]- 0090 May, [facility] [place] [facility] [address] [id number] [place] [address]- 6039 Apr, [facility] [place] [facility] [address] [id number] [place] [address]- 4571 Apr, [facility] [place] [facility] [address] [id number] [place] [address]- 6588 Apr, [facility] [place] [facility] [address] [id number] [place] [address]- 0411 Apr, [facility] [place] [facility] [address] [id number] [place] [address]- 6098 Apr, [facility] [address] [facility] [id number], [place] [address]- 6496 Apr, [facility] [address] [facility] [id number]- 0555 Apr, [facility] [address] [facility] [id number]- 3279 Apr, [facility] [address] [facility] [id number] 8643 Apr, [facility] [address] [facility] [id number], [place] [address]- 8211 Apr, [facility] [address] [facility] [id number], [place] [address]- 9639 Mar, [facility] [address], [place] [address]- 6349 Mar, [facility] [address], [place] [address]- 3936 Feb, [facility] [address] [place] [id number], [place] [address]- 8548 Feb, [facility] [address], [place] [address]- 5746 Feb, [facility] [address] [place] [id number], [place] [address]- 1973 Feb, [facility] [address] [place] [id number], [place] [address]- 3369 Jan, [facility] [address] [place] [id number], [place] [address]- 8129 Jan, IMMUNIZATIONS No Known Immunizations SOCIAL HISTORY Never Assessed REASON FOR VISIT Returned call PLAN OF CARE VITAL SIGNS MEDICATIONS [...] and UTI 02/2017 Hospitalization History [facility] [place]- UTI 11/23/2017
--- OUTSIDE RECORDS SUMMARY | 2018-04-14 19:14 | XMS REPORT ---
Author Author OBINNA HARDING [facility] Address [address] [place] [address] Care Team Providers Care Educational Diagnostician Name Role Phone OBINNA HARDING Unavailable PROBLEMS Type Condition ICD9-CM Code BOF12-RL Code Onset Dates Condition Status SNOMED Code Problem Essential hypertension I10 Active 72343754 Problem Recurrent major depressive disorder, in full remission F33.42 Active 139032650 Problem Anxiety F41.9 Active 48537210 Problem Chronic migraine without aura without status migrainosus, not intractable G43.709 Active 602987450 Problem CPAP (continuous positive airway pressure) dependence Z99.89 Active 935464609 Problem Mixed incontinence urge and stress N39.46 Active 516834975 Problem 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 Active 4760937413103508 Problem 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.29 Active 105732877 Problem Proteinuria, unspecified R80.9 Active 36058735 Problem Multinodular goiter E04.2 Active 907546607 Problem Type 2 diabetes mellitus with hyperglycemia, without long-term current use of insulin E11.65 Active 78998512 Problem Chronic obstructive pulmonary disease, unspecified COPD type J44.9 Active 79315519 Problem Morbid obesity due to excess calories E66.01 Active 976134371 Problem Primary osteoarthritis of left knee M17.12 Active 520908826031705 Problem Obstructive sleep apnea syndrome G47.33 Active 43106246 Problem Lumbago with sciatica, unspecified side M54.40 Active 945314105 Problem Other chronic pain G89.29 Active 73703552 Problem Chronic fatigue R53.82 Active 95966592 Problem Hypercholesterolemia E78.00 Active 03389368 Problem Gastroesophageal reflux disease with esophagitis K21.0 Active 489348346 Problem Bipolar 1 disorder F31.9 Active 656168714 ALLERGIES Substance Reaction Event Type Date Status Penicillin V Potassium Unknown Drug Allergy Jul, Active Iodine Unknown Drug Allergy Jul, Active ENCOUNTERS Encounter Location Date Diagnosis [place] [id number], [place] [address] Jan, [place] [address] [place] [id number] [place] [address]65- 6236 November, [place] [address] [address] [id number] [place] [address] 12292- 8739 November, Chronic migraine without aura without status migrainosus, not intractable G43.709 [place] [address] [id number] [place] [address]66- 1989 November, Type 2 diabetes mellitus with hyperglycemia, without long- term current use of insulin E11.65 ; Dysuria R30.0 ; Acute cystitis without hematuria N30.00 ; Lumbago with sciatica, unspecified side M54.40 ; Other chronic pain G89.29 ; Chronic obstructive pulmonary disease, unspecified COPD type J44.9 ; Chest pain, unspecified type R07.9 ; Absent pedal pulses R09.89 and BMI 40.0-44.9, adult Z68.41 [place] [address], [place] [address] Oct, Recurrent major depressive disorder, in full remission F33.42 and Anxiety F41.9 [place] [address], [place] [address] Sep, Other chronic pain G89.29 [place] [address] [address] [id number] [place] [address] 47888- 8939 Aug, Other chronic pain G89.29 [place] [id number] [place] [address] 85396- 8290 Aug, Chronic obstructive pulmonary disease, unspecified COPD [...] and BMI 40.0-44.9, adult Z68.41 [place] [address] [id number] [place] [address] 75183- 2865 Aug, [place] [address] [address]- [address] Jul, Type 2 diabetes mellitus with hyperglycemia, without long- term current use of insulin E11.65 [place] [address] [address]- 2476 Jul, Type 2 diabetes mellitus with hyperglycemia, without long- term current use of insulin E11.65 [place] [address] [id number] [place] [address] 31723- 0082 Jul, [place] [address] [id number] [place] [address] 89208- 9286 Jul, Type 2 diabetes mellitus with hyperglycemia, [...] immunization Z23 and BMI 40.0-44.9, adult Z68.41 [place] [address] [id number] [place] [address] 58483- 0965 Jun, Migraine without status migrainosus, not intractable, unspecified migraine type G43.909 ; Hypercholesterolemia E78.00 and Lumbago with sciatica, unspecified side M54.40 [place] [address] [id number] [place] [address] 38362- 4792 11 Jun, 2017 Recurrent major depressive disorder, in full remission F33.42 and Anxiety F41.9 [place] [address] [address] [id number] [place] [address] 28255- 3333 Jun, [address] [address]- [address] May, Hypercholesterolemia E78.00 ; 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.29 ; Migraine without status migrainosus , not intractable, unspecified migraine type G43.909 and Lumbago with sciatica, unspecified side M54.40 [place] [id number] [place] [address] 14678- 4824 14 May, 2017 Multinodular goiter E04.[address] [address]53- 9943 May, [address] 38701- 9648 13 Apr, 2017 Multinodular goiter E04.2 [place] [id number] [place] [address] 64695- 6497 06 Apr, 2017 Abnormal imaging of thyroid R94.6 ; Hypercholesterolemia E78.00 and 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.29 [place] [id number] [place] [address] 20751- 7242 Mar, Abnormal imaging of thyroid R94.6 [place] [id number] [place] [address] 43487- 8212 Mar, Chest wall mass R22.2 [place] [id number] [place] [address] 65841- 1285 07 Mar, 2017 Type 2 diabetes mellitus with hyperglycemia, without long- term current use of insulin E11.65 ; Gastroesophageal reflux disease with esophagitis K21.0 ; Hypercholesterolemia E78.00 ; Proteinuria, unspecified R80.9 ; 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.29 ; Chest wall mass R22.2 and Precordial pain R07.2 [place] [id number] [place] [address] 94638- 6056 Feb, Recurrent major depressive disorder, in full remission F33.42 [place] [address] [id number] [place] [address] 79864- 8482 Feb, Recurrent major depressive disorder, in full remission F33.42 and Anxiety F41.9 [place] [address] [id number] [place] [address] 48918- 9755 Feb, [facility] [address] [id number] Jan, Dental examination Z01.20 and Dental caries K02.9 [place] [address] [id number] [place] [address] 51518- 0959 Dec, [place] [address] [id number] [place] [address] 98429- 6688 Dec, [place] [address] [address] [id number] [place] [address] 72378- 7652 Dec, Type 2 diabetes mellitus with hyperosmolarity [...] and Stress incontinence ( female) (male) N39.3 [facility] [address] [place] [id number] [place] [id number] Dec, Dental caries K02.9 [facility] [address] [id number] [place] [address] 45444- 5193 November, [facility] [address] [id number], [place] [address] November, Essential hypertension I10 ; Other chronic pain G89.29 ; Gastroesophageal reflux disease without esophagitis K21.9 and Anxiety F41.9 [facility] [address] [place] [id number] [id number] November, Dental examination Z01.20 [facility] [id number] [place] [address] 26146- 4359 Oct, Recurrent major depressive disorder, in full remission F33.42 [place] [address] [address] [id number] [place] [address] 33646- 8887 Sep, Other chronic pain G89.29 [place] [address] [address] [id number] [place] [address] 78995- 8705 Sep, Other chronic pain G89.29 and Bipolar 1 disorder F31.9 [facility] [id number] [place] [address] 47453- 9727 Aug, Other chronic pain G89.29 [facility] [address] [id number] [place] [address] 47130- 8294 Jul, Gastroesophageal reflux disease without esophagitis K21.9 [place] [address] [place] [address] 04505- 5925 Jun, Migraine without status migrainosus, not intractable, unspecified migraine type G43.909 [facility] [address] [place] [address] 05735- 0017 Jun, Type 2 diabetes mellitus with hyperosmolarity [...] hypertension I10 and Hypercholesterolemia E78.00 [place] [address] [id number] [place] [address] 09052- 9713 May, [place] [id number] [place] [address] 75564- 6189 Apr, Edema, unspecified type R60.9 ; Type [...] Z23 and Stress incontinence (female) (male) N39.[address] 57055- 7375 Apr, [place] [address] 67879- 6767 Mar, Headache above the eye region R51 ; Lumbago with sciatica, unspecified side M54.40 ; Edema, unspecified type R60.9 and Migraine without status migrainosus, not intractable, unspecified migraine type G43.909 [place] [address] [place] [id number] [place] [address] 53468- 6487 Mar, Chronic obstructive pulmonary disease, unspecified COPD type J44.9 ; Type 2 diabetes mellitus with hyperosmolarity without coma, without long-term current use of insulin E11.00 ; Other chronic pain G89.29 ; Migraine without status migrainosus, not intractable, unspecified migraine type G43.909 ; Left-sided chest wall pain R07.89 and Anxiety about health F41.8 [place] [id number] [place] [address] 65713- 9877 Mar, [address] 48566- 3022 Mar, [facility] [id number], [place] [address] 4743 Mar, [facility] [id number] [place] [address] 80193- 6981 Feb, [facility] [id number] [place] [address] 10607- 8330 Feb, [facility] [address] [place] [id number] [place] [address] 73905- 0884 Feb, Chronic fatigue R53.82 ; Lumbago with sciatica, unspecified side M54.40 ; Gastroesophageal reflux disease with esophagitis K21.0 ; Other chronic pain G89.29 ; Morbid obesity due to excess calories E66.01 ; Migraine without status migrainosus, not intractable, unspecified migraine type G43.909 and Edema, unspecified type R60.9 [facility] [address] [place] [address] [id number] Feb, Dental examination Z01.20 [place] [address] [place] [address] 58932- 5815 Feb, [place] [address] [place] [address] 75394- 3314 Feb, Type 2 diabetes mellitus with hyperosmolarity without coma, without long-term current use of insulin E11.00 ; Chronic fatigue R53.82 ; Gastroesophageal reflux disease with esophagitis K21.0 ; Morbid obesity due to excess calories E66.01 ; Lumbago with sciatica, unspecified side M54.40 and Other chronic pain G89.29 [facility] [id number], [place] [address]- 5597 Feb, Type 2 diabetes mellitus with hyperosmolarity without coma, without long-term current use of insulin E11.00 ; Chronic fatigue R53.82 ; Gastroesophageal reflux disease with esophagitis K21.0 ; Morbid obesity due to excess calories E66.01 ; Lumbago with sciatica, unspecified side M54.40 and Other chronic pain G89.29 [facility] [address] [id number] [id number] Feb, Dental examination Z01.20 [facility] [address] [id number] [place] [address]- 2546 Jan, [facility] [address] [id number], [place] [address] 2546 Mar, [facility] [address] [id number] [address] Feb, Dental examination V72.2 [facility] [address] [id number] [place] [address]- 5966 Oct, [facility] [address] [id number], [place] [address]- 7046 Oct, [facility] [address] [id number], [place] [address]- 2016 Aug, [facility] [address] [id number], [place] [address]- 9016 Aug, [facility] [address] [facility] [id number], [place] [address]- 8706 Jul, [facility] [address] [facility] [id number], [place] [address]- 0606 Jul, [facility] [address] [id number], [place] [address]- 8536 Jun, [facility] [address] [id number], [place] [address]- 6286 Jun, [facility] [address] [id number], [place] [address]- 9496 Jun, [facility] [address] [facility] [id number], [place] [address]- 9346 Jun, [facility] [address] [facility] [id number], [place] [address]- 6986 Jun, [facility] [address] [id number] [place] [address]- 0345 Jun, [facility] [address] [id number] [place] [address]- 6161 Jun, [facility] [place] [facility] [address] [id number] [place] [address]2 Jun, [facility] [place] [facility] [address] [id number] [place] 9549 Jun, [facility] [place] [facility] [address] [id number] [place] [address]- 6768 Jun, [facility] [place] [facility] [address] [id number] [place] [address]- 5052 Jun, [facility] [place] [facility] [address] [id number] [place] [address]- 3731 Jun, [facility] [place] [facility] [address] [id number] [place] [address]- 2257 Jun, [facility] [place] [facility] [address] [id number] [place] [address]- 8373 May, [facility] [place] [facility] [address] [id number] [place] [address]- 8218 May, [facility] [place] [facility] [address] [id number] [place] [address]- 5072 May, [facility] [place] [facility] [address] [id number] [place] [address]- 6744 May, [facility] [place] [facility] [address] [id number] [place] [address]- 1942 Apr, [facility] [place] [facility] [address] [id number] [place] [address]- 7058 Apr, [facility] [place] [facility] [address] [id number] [place] [address]- 0750 Apr, [facility] [place] [facility] [address] [id number] [place] [address]- 1847 Apr, [facility] [address] [facility] [id number], [place] [address]- 8017 Apr, [facility] [address] [facility] [id number], [place] [address]- 9964 Apr, [facility] [address] [facility] [id number], [place] [address]- 2865 Apr, [facility] [address] [facility] [id number], [place] [address] 2547 Apr, [facility] [address] [facility] [id number], [place] [address]- 2517 Apr, [facility] [address] [facility] [id number], [place] [address]- 5934 Apr, [facility] [address] [facility] [id number], [place] [address]- 3080 Mar, [facility] [address] [facility] [id number], [place] [address]- 9310 Mar, [facility] [id number], [place] [address]- 5566 Feb, [facility] [id number] 4944 Feb, [facility] [id number], [place] [address]- 3924 Feb, [facility] [id number], [place] [address]- 0629 Feb, [facility] [address] [facility] [id number], [place] [address]- 9289 Jan, [facility] [id number], [place] [address]- 3636 Jan, IMMUNIZATIONS Vaccine Route Administration Date Status FLULAVAL QUAD (6 MO AND UP) 2017 IM Intramuscular Jul 27, 2017 Administered PPSV23 (PNEUMOVAX) IM Intramuscular Jul 27, 2017 Administered SOCIAL HISTORY Never Assessed REASON FOR VISIT Diabetes--Faheem, -wants flu shot today, -sob when sleeping on her back laying on Lt side, cpap not giving her much air. Wants to discuss the Thyroid , -pt cannot afford test strips PLAN OF CARE Activity Details Follow Up 4 Weeks Reason:Back pain/transition care VITAL SIGNS Height 68 in 2017-07-27 Weight 286.5 lbs 2017-07-27 Temperature 98.6 degrees Fahrenheit 2017-07-27 Heart Rate 80 bpm 2017-07-27 Respiratory Rate 20 2017-07-27 BMI 43.56 kg/m2 2017-07-27 Blood pressure systolic 132 mmHg 2017-07-27 Blood pressure diastolic 84 mmHg 2017-07-27 MEDICATIONS Medication Instructions Dosage Frequency Start Date End Date Duration Status Atorvastatin Calcium 10 mg Orally Once a day 1 tablet 24h Feb, 90 days Active Naproxen 500 mg Orally 2 times a day 1 tablet 12h Not-Taking Propranolol HCl 20 MG Orally Twice a day 1 tablet 12h 90 days Active Topiramate 50 MG Orally Twice a day 3 tablet 12h 90 days Active Sumatriptan Succinate 100 mg Orally Once a day 1 tablet as needed 24h 30 days Not-Taking Omeprazole 20 MG Orally Once a day 1 capsule 24h 90 days Active Lisinopril 10 mg Orally Once a day 1 tablet 24h Mar, 90 days Active Glucocard Expression Monitor w/Device as directed November, Not-Taking Nuvigil 200 MG Orally Once a day 1 1/2 tablets 24h May, Not- Taking Oxybutynin Chloride 5 MG Orally 2 times a day 1 tablet 12h Oct, 90 days Active Tizanidine HCl 2 MG Orally Three times a day 1 tablet as needed 8h 8 Jan 90 days Active Glucocard Expression Test - In Vitro fasting and 2 hr after 1 meal 3 times weekly. test blood sugar November, Not-Taking Metformin HCl 500 MG Orally Twice a day 1 tablet with meals 12h 90 days Active Hydrocodone-Acetaminophen 7.5-325 MG Orally 3 times a day 1 tablet as needed 8h Jun, Not-Taking Abilify 10 mg Orally Once a day 1 tablet 24h 30 Active Gabapentin 300 MG Orally 3 times a day 4 capsules 8h 90 days Active RESULTS No Results PROCEDURES Procedure Date Ordered Result Body Site [facility] VISIT ESTABLISHED PATIENT Jul 27, 2017 GLYCATED HEMOGLOBIN TEST Jul 27, 2017 MICROALBUMIN, SEMIQUANT Jul 27, 2017 IMMUNIZATION ADMIN, EACH ADD (please include units) Jul 27, 2017 SINGLE IMMUNIZATION ADMIN Jul 27, 2017 VENIPUNCT, ROUTINE* Jul 27, 2017 FLULAVAL QUAD (6 MO AND UP) 2016Jul 27, 2017 [facility] Jul [facility], 2017 ADMN PNEUMCOC VAC NO FEE SCHED DAY Jul 27, 2017 PPSV23 (PNEUMOVAX) Jul 27, 2017 INSTRUCTIONS MEDICATIONS ADMINISTERED No Known Medications [...] pain and UTI 02/2017 Hospitalization History [facility]- UTI 11/23/2017
--- OUTSIDE RECORDS SUMMARY | 2018-04-14 19:15 | XMS REPORT ---
Author Author OBINNA HARDING [facility] Address [address] [place] [address] Care Team Providers Care Group Home Counselor Name Role Phone OBINNA HARDING Unavailable PROBLEMS Type Condition ICD9-CM Code HNH35-IZ Code Onset Dates Condition Status SNOMED Code Problem Essential hypertension I10 Active 99355123 Problem Recurrent major depressive disorder, in full remission F33.42 Active 539921497 Problem Anxiety F41.9 Active 24178927 Problem Chronic migraine without aura without status migrainosus, not intractable G43.709 Active 497321322 Problem CPAP (continuous positive airway pressure) dependence Z99.89 Active 329578036 Problem Mixed incontinence urge and stress N39.46 Active 343931286 Problem 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 Active 1276996481376927 Problem 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.29 Active 529159263 Problem Proteinuria, unspecified R80.9 Active 90381300 Problem Multinodular goiter E04.2 Active 555892965 Problem Type 2 diabetes mellitus with hyperglycemia, without long-term current use of insulin E11.65 Active 38061319 Problem Chronic obstructive pulmonary disease, unspecified COPD type J44.9 Active 79339242 Problem Morbid obesity due to excess calories E66.01 Active 365481097 Problem Primary osteoarthritis of left knee M17.12 Active 416943899327742 Problem Obstructive sleep apnea syndrome G47.33 Active 70501007 Problem Lumbago with sciatica, unspecified side M54.40 Active 195334001 Problem Other chronic pain G89.29 Active 27981563 Problem Chronic fatigue R53.82 Active 89686626 Problem Hypercholesterolemia E78.00 Active 26329100 Problem Gastroesophageal reflux disease with esophagitis K21.0 Active 311529851 Problem Bipolar 1 disorder F31.9 Active 872292918 ALLERGIES No Information ENCOUNTERS Encounter Location Date Diagnosis [facility] [id number] [place] [address]22- 7555 Jan, [place] [address] [place] [address] 09427- 8569 November, [place] [id number] [place] [address] 36786- 5833 November, Chronic migraine without aura without status migrainosus, not intractable G43.709 [place] [id number] [place] [address] 32169- 9373 November, Type 2 diabetes mellitus with hyperglycemia, without long- term current use of insulin E11.65 ; Dysuria R30.0 ; Acute cystitis without hematuria N30.00 ; Lumbago with sciatica, unspecified side M54.40 ; Other chronic pain G89.29 ; Chronic obstructive pulmonary disease, unspecified COPD type J44.9 ; Chest pain, unspecified type R07.9 ; Absent pedal pulses R09.89 and BMI 40.0-44.9, adult Z68.41 [place] [id number] [place] [address] 32487- 1891 Oct, Recurrent major depressive disorder, in full remission F33.42 and Anxiety F41.9 [place] [id number] [place] [address] 29448- 7969 Sep, Other chronic pain G89.29 [place] [id number] [place] [address] 51369- 0684 Aug, Other chronic pain G89.29 [place] [id number] [place] [address] 41254- 8857 Aug, Chronic obstructive pulmonary disease, unspecified COPD [...] goiter E04.2 and BMI 40.0-44.9, adult Z68.41 [place] [address] [place] [id number] [place] [address] 67018- 2400 Aug, [place] [address] 14485- 9251 Jul, Type 2 diabetes mellitus with hyperglycemia, without long- term current use of insulin E11.65 [place] [address] 10672- 9526 Jul, Type 2 diabetes mellitus with hyperglycemia, without long- term current use of insulin E11.65 [place] [address] [place] [id number] [place] [address] 23050- 1379 Jul, [place] [address] 96283- 9913 Jul, Type 2 diabetes mellitus with hyperglycemia, [...] immunization Z23 and BMI 40.0-44.9, adult Z68.41 [place] [address] [place] [id number] [place] [address] 24936- 5184 Jun, Migraine without status migrainosus, not intractable, unspecified migraine type G43.909 ; Hypercholesterolemia E78.00 and Lumbago with sciatica, unspecified side M54.40 [place] [id number] [place] [address] 01327- 4066 Jun, Recurrent major depressive disorder, in full remission F33.42 and Anxiety F41.9 [place] [address] 61621- 0079 Jun, [place] [address] 75162- 1548 May, Hypercholesterolemia E78.00 ; 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.29 ; Migraine without status migrainosus , not intractable, unspecified migraine type G43.909 and Lumbago with sciatica, unspecified side M54.40 [place] [address] 85025- 8130 14 May, 2017 Multinodular goiter E04.2 [place] [address] 25556- 1895 May, [place] [address] 53211- 1353 Apr, Multinodular goiter E04.2 [place] [address] [place] [id number] [place] [address] 78774- 2514 Apr, Abnormal imaging of thyroid R94.6 ; Hypercholesterolemia E78.00 and 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.29 [place] [address] [place] [id number] [place] [address] 35943- 6474 Mar, Abnormal imaging of thyroid R94.6 [place] [address] [place] [id number] [place] [address] 32745- 2353 20 Mar, 2017 Chest wall mass R22.2 [place] [address] [place] [id number] [place] [address] 28808- 9149 07 Mar, 2017 Type 2 diabetes mellitus with hyperglycemia, without long- term current use of insulin E11.65 ; Gastroesophageal reflux disease with esophagitis K21.0 ; Hypercholesterolemia E78.00 ; Proteinuria, unspecified R80.9 ; 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.29 ; Chest wall mass R22.2 and Precordial pain R07.2 [place] [address] [address] Feb, Recurrent major depressive disorder, in full remission F33.42 [place] [address] [place] [id number] [place] [address] 01825- 4107 Feb, Recurrent major depressive disorder, in full remission F33.42 and Anxiety F41.9 [place] [address] [place] [address] [place] [address] 49511- 3377 Feb, [facility] [address] [place] [address] [id number] Jan, Dental examination Z01.20 and Dental caries K02.9 [place] [id number] [place] [address] 39433- 9441 Dec, [place] [address] [place] [id number] [place] [address] 41193- 2278 Dec, [place] [address] [place] [address] [place] [address] 60071- 5553 Dec, Type 2 diabetes mellitus with hyperosmolarity [...] and Stress incontinence ( female) (male) N39.3 [facility] [address] [place] [id number] [place] [address] [id number] Dec, Dental caries K02.9 [place] [address] [address]- 76[address] November, [place] [address] [place] [id number] [place] [address] 04703- 6738 November, Essential hypertension I10 ; Other chronic pain G89.29 ; Gastroesophageal reflux disease without esophagitis K21.9 and Anxiety F41.9 [facility] [address] [place] [address] [id number] November, Dental examination Z01.20 [facility] [address] [place] [id number] [place] [address] 75646- 9927 Oct, Recurrent major depressive disorder, in full remission F33.42 [place] [address] [place] [address] [place] [address] 04123- 0552 Sep, Other chronic pain G89.29 [place] [address] [place] [address] [place] [address] 40509- 5496 Sep, Other chronic pain G89.29 and Bipolar 1 disorder F31.9 [place] [address] [place] [address] 44617- 8410 Aug, Other chronic pain G89.29 [place] [address] [place] [address] [place] [address] 39241- 3947 Jul, Gastroesophageal reflux disease without esophagitis K21.9 [place] [address] [place] [address] [place] [address] 86534- 5645 Jun, Migraine without status migrainosus, not intractable, unspecified migraine type G43.909 [place] [address] [place] [address] 84228- 4488 Jun, Type 2 diabetes mellitus with hyperosmolarity [...] ; Essential hypertension I10 and Hypercholesterolemia E78.00 [place] [address] [place] [address] [place] [address] 03851- 5926 May, [place] [address] 91624- 1510 Apr, Edema, unspecified type R60.9 ; Type [...] Z23 and Stress incontinence (female) (male) N39.3 [place] [address] 78011- 6994 Apr, [place] [address] 53081- 0916 Mar, Headache above the eye region R51 ; Lumbago with sciatica, unspecified side M54.40 ; Edema, unspecified type R60.9 and Migraine without status migrainosus, not intractable, unspecified migraine type G43.909 [place] [address] [place] [address] [place] [address] 10630- 1244 Mar, Chronic obstructive pulmonary disease, unspecified COPD type J44.9 ; Type 2 diabetes mellitus with hyperosmolarity without coma, without long-term current use of insulin E11.00 ; Other chronic pain G89.29 ; Migraine without status migrainosus, not intractable, unspecified migraine type G43.909 ; Left-sided chest wall pain R07.89 and Anxiety about health F41.[address] 88243- 4845 Mar, [place] [address] 55263- 1050 Mar, [place] [address] [place] [address]- 5416 Mar, [place] [address] [place] [address] [place] [address] 63960- 2440 Feb, [place] [address] [place] [address] 38276- 5273 Feb, [place] [address] [place] [address] [place] [address] 73479- 1198 Feb, Chronic fatigue R53.82 ; Lumbago with sciatica, unspecified side M54.40 ; Gastroesophageal reflux disease with esophagitis K21.0 ; Other chronic pain G89.29 ; Morbid obesity due to excess calories E66.01 ; Migraine without status migrainosus, not intractable, unspecified migraine type G43.909 and Edema, unspecified type R60.9 [facility] [address] [place] [address] [id number] Feb, Dental examination Z01.20 [place] [address] [place] [address] [place] [address] 98164- 4979 Feb, [place] [address] [place] [address] [place] [address] 62552- 3625 Feb, Type 2 diabetes mellitus with hyperosmolarity without coma, without long-term current use of insulin E11.00 ; Chronic fatigue R53.82 ; Gastroesophageal reflux disease with esophagitis K21.0 ; Morbid obesity due to excess calories E66.01 ; Lumbago with sciatica, unspecified side M54.40 and Other chronic pain G89.29 [place] [address] [place] [address] 40971- 1098 Feb, Type 2 diabetes mellitus with hyperosmolarity without coma, without long-term current use of insulin E11.00 ; Chronic fatigue R53.82 ; Gastroesophageal reflux disease with esophagitis K21.0 ; Morbid obesity due to excess calories E66.01 ; Lumbago with sciatica, unspecified side M54.40 and Other chronic pain G89.29 [facility] [address] [place] [address] [id number] Feb, Dental examination Z01.[address] [facility] [address] [id number] [place] [address] Jan, [facility] [address] [facility] [id number] [address]- 2546 Mar, [facility] [address] [place] [id number] [address] Feb, Dental examination V72.[address] [facility] [address] [facility] [id number], [place] [address] [address], [facility] [address] [facility] [id number] [place] [address] [address], [facility] [address] [place] [id number] [place] [address]- [address] Aug, [facility] [address] [address]- [address] Aug, [facility] [address] [place] [id number] [address]- [address] Jul, [facility] [address] [place] [id number] [place] [address]- 34[address] Jul, [facility] [address] [place] [id number] [address]- [address] Jun, [facility] [address] [place] [id number] [place] [address]- [address] Jun, [facility] [address] [facility] [id number] [address]- [address] Jun, [facility] [address] [facility] [id number][place] [address]- [address] Jun, [facility] [address] [facility] [id number] [place] [address]- [address] Jun, [facility] [address] [place] [id number] [address]- 1726 Jun, [facility] [place] [facility] [address] [id number] [place] [address]- 7598 Jun, [facility] [place] [facility] [address] [id number] [place] [address]- 7370 Jun, [facility] [place] [facility] [address] [id number] [place] 6808 Jun, [facility] [place] [facility] [address] [id number] [place] [address]- 8265 Jun, [facility] [place] [facility] [address] [id number] [place] [address]- 5224 Jun, [facility] [place] [facility] [address] [id number] [place] [address]- 3005 Jun, [facility] [place] [facility] [address] [id number] [place] [address]- 0826 Jun, [facility] [place] [facility] [address] [id number] [place] [address]- 3075 May, [facility] [place] [facility] [address] [id number] [place] [address]- 8604 May, [facility] [place] [facility] [address] [id number] [place] [address]- 6001 May, [facility] [place] [facility] [address] [id number] [place] [address]- 6970 May, [facility] [place] [facility] [address] [id number] [place] [address]- 3277 Apr, [facility] [place] [facility] [address] [id number] [place] [address]- 5083 Apr, [facility] [place] [facility] [address] [id number] [place] [address]- 6235 Apr, [facility] [place] [facility] [address] [id number] [place] [address]- 7739 Apr, [facility] [place] [facility] [address] [id number] [place] [address]- 4112 Apr, [facility] [address] [facility] [id number][place] 7103 Apr, [facility] [address] [facility] [id number][place] [address]- 1374 Apr, [facility] [address] [facility] [id number], [place] [address]- 5771 Apr, [facility] [address] [facility] [id number] 8397 Apr, [facility] [address] [facility] [id number][place]- 9834 Apr, [facility] [address] [facility] [id number]- 6959 Mar, [facility] [address] [facility] [id number][place]- 3755 Mar, [facility] [address] [facility] [id number], [place] [address]- 7528 Feb, [facility] [address] [facility] [id number], [place] [address]- 3673 Feb, [facility] [address] [place] [id number] [address]- 1858 Feb, [facility] [address] [place] [id number] [address]- 3453 Feb, [facility] [address] [facility] [id number], [place] [address]- 1182 Jan, [facility] [address] [facility] [id number], [place] [address]- 1788 Jan, IMMUNIZATIONS No Known Immunizations SOCIAL HISTORY Never Assessed REASON FOR VISIT Refill Request PLAN OF CARE VITAL SIGNS MEDICATIONS Medication Instructions Dosage Frequency Start Date End Date Duration Status Blood Glucose Monitor System w/Device as directed Jul, Active RESULTS No Results PROCEDURES No Known [...] pain and UTI 02/2017 Hospitalization History [facility] [place]- UTI 11/23/2017
--- OUTSIDE RECORDS SUMMARY | 2018-04-14 19:15 | XMS REPORT ---
Author Author OBINNA HARDING 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 Name Role Phone BOINNA HARDING Unavailable PROBLEMS Type Condition ICD9-CM Code XLQ43-YE Code Onset Dates Condition Status SNOMED Code Problem Essential hypertension I10 Active 49196416 Problem Recurrent major depressive disorder, in full remission F33.42 Active 037165830 Problem Anxiety F41.9 Active 65876383 Problem Chronic migraine without aura without status migrainosus, not intractable G43.709 Active 481232034 Problem CPAP (continuous positive airway pressure) dependence Z99.89 Active 289315890 Problem Mixed incontinence urge and stress N39.46 Active 546443477 Problem 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 Active 0349123118110395 Problem 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.29 Active 728153191 Problem Proteinuria, unspecified R80.9 Active 60199241 Problem Multinodular goiter E04.2 Active 466808288 Problem Type 2 diabetes mellitus with hyperglycemia, without long-term current use of insulin E11.65 Active 18762507 Problem Chronic obstructive pulmonary disease, unspecified COPD type J44.9 Active 84680316 Problem Morbid obesity due to excess calories E66.01 Active 303929080 Problem Primary osteoarthritis of left knee M17.12 Active 093421485766632 Problem Obstructive sleep apnea syndrome G47.33 Active 59830696 Problem Lumbago with sciatica, unspecified side M54.40 Active 431862408 Problem Other chronic pain G89.29 Active 04523778 Problem Chronic fatigue R53.82 Active 51930108 Problem Hypercholesterolemia E78.00 Active 12610181 Problem Gastroesophageal reflux disease with esophagitis K21.0 Active 292166949 Problem Bipolar 1 disorder F31.9 Active 201532550 ALLERGIES No Information ENCOUNTERS Encounter Location Date Diagnosis [facility] [id number] [place] [address] 46869- 5426 Jan, [place] [address] [place] [address] 85863- 3952 November, [place] [id number] [place] [address] 42390- 9553 November, Chronic migraine without aura without status migrainosus, not intractable G43.709 [place] [id number] [place] [address] 47733- 4402 November, Type 2 diabetes mellitus with hyperglycemia, without long- term current use of insulin E11.65 ; Dysuria R30.0 ; Acute cystitis without hematuria N30.00 ; Lumbago with sciatica, unspecified side M54.40 ; Other chronic pain G89.29 ; Chronic obstructive pulmonary disease, unspecified COPD type J44.9 ; Chest pain, unspecified type R07.9 ; Absent pedal pulses R09.89 and BMI 40.0-44.9, adult Z68.41 [place] [id number] [place] [address] 21643- 5710 Oct, Recurrent major depressive disorder, in full remission F33.42 and Anxiety F41.9 [place] [id number] [place] [address] 52672- 8879 Sep, Other chronic pain G89.29 [place] [id number] [place] [address] 45855- 1442 Aug, Other chronic pain G89.29 [place] [id number] [place] [address] 77842- 5355 Aug, Chronic obstructive pulmonary disease, unspecified COPD [...] goiter E04.2 and BMI 40.0-44.9, adult Z68.41 [place] [address] [place] [id number] [place] [address] 44328- 2865 Aug, [place] [address] 74696- 1343 Jul, Type 2 diabetes mellitus with hyperglycemia, without long- term current use of insulin E11.65 [place] [address] 59090- 6170 Jul, Type 2 diabetes mellitus with hyperglycemia, without long- term current use of insulin E11.65 [place] [address] [place] [id number] [place] [address] 36119- 4426 Jul, [place] [address] 32570- 4442 Jul, Type 2 diabetes mellitus with hyperglycemia, [...] immunization Z23 and BMI 40.0-44.9, adult Z68.41 [place] [address] [place] [id number] [place] [address] 91351- 9508 Jun, Migraine without status migrainosus, not intractable, unspecified migraine type G43.909 ; Hypercholesterolemia E78.00 and Lumbago with sciatica, unspecified side M54.40 [place] [id number] [place] [address] 50424- 4498 Jun, Recurrent major depressive disorder, in full remission F33.42 and Anxiety F41.9 [place] [address] 27310- 1104 Jun, [place] [address] 65044- 0269 May, Hypercholesterolemia E78.00 ; 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.29 ; Migraine without status migrainosus , not intractable, unspecified migraine type G43.909 and Lumbago with sciatica, unspecified side M54.40 [place] [address] 10521- 6229 14 May, 2017 Multinodular goiter E04.2 [place] [address] 30442- 4583 May, [place] [address] 91622- 1708 Apr, Multinodular goiter E04.2 [place] [address] [place] [id number] [place] [address] 64248- 4967 Apr, Abnormal imaging of thyroid R94.6 ; Hypercholesterolemia E78.00 and 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.29 [place] [address] [place] [id number] [place] [address] 30946- 0630 Mar, Abnormal imaging of thyroid R94.6 [place] [address] [place] [id number] [place] [address] 47114- 1198 20 Mar, 2017 Chest wall mass R22.2 [place] [address] [place] [id number] [place] [address] 68871- 1566 07 Mar, 2017 Type 2 diabetes mellitus with hyperglycemia, without long- term current use of insulin E11.65 ; Gastroesophageal reflux disease with esophagitis K21.0 ; Hypercholesterolemia E78.00 ; Proteinuria, unspecified R80.9 ; 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.29 ; Chest wall mass R22.2 and Precordial pain R07.2 [place] [address] [address] 8037 Feb, Recurrent major depressive disorder, in full remission F33.42 [place] [address] [place] [id number] [place] [address] 10342- 5569 Feb, Recurrent major depressive disorder, in full remission F33.42 and Anxiety F41.9 [place] [address] [place] [id number] [place] [address] 17265- 3125 Feb, [facility] [address] [place] [address] [id number] Jan, Dental examination Z01.20 and Dental caries K02.9 [place] [id number] [place] [address] 86260- 9170 Dec, [place] [address] [place] [id number] [place] [address] 22212- 5514 Dec, [place] [address] [place] [id number] [place] [address] 13374- 7858 Dec, Type 2 diabetes mellitus with hyperosmolarity [...] and Stress incontinence ( female) (male) N39.3 [facility] [address] [place] [id number] [place] [address] [id number] Dec, Dental caries K02.9 [place] [address] [address] 3221 November, [place] [address] [place] [id number] [place] [address] 47764- 4948 November, Essential hypertension I10 ; Other chronic pain G89.29 ; Gastroesophageal reflux disease without esophagitis K21.9 and Anxiety F41.9 [facility] [address] [place] [address] [id number] November, Dental examination Z01.20 [facility] [address] [place] [id number] [place] [address] 63022- 2441 Oct, Recurrent major depressive disorder, in full remission F33.42 [place] [address] [place] [id number] [place] [address] 79943- 1084 Sep, Other chronic pain G89.29 [place] [address] [place] [id number] [place] [address] 55791- 4700 Sep, Other chronic pain G89.29 and Bipolar 1 disorder F31.9 [place] [id number] [place] [address] 79575- 8819 Aug, Other chronic pain G89.29 [place] [address] [place] [id number] [place] [address] 19148- 2413 Jul, Gastroesophageal reflux disease without esophagitis K21.9 [place] [address] [place] [id number] [place] [address] 39581- 8392 Jun, Migraine without status migrainosus, not intractable, unspecified migraine type G43.909 [place] [address] [place] [address] 48852- 7319 Jun, Type 2 diabetes mellitus with hyperosmolarity [...] ; Essential hypertension I10 and Hypercholesterolemia E78.00 [place] [address] [place] [id number] [place] [address] 18789- 4364 May, [place] [address] 23292- 8027 Apr, Edema, unspecified type R60.9 ; Type [...] Z23 and Stress incontinence (female) (male) N39.3 [place] [address] 97606- 8031 Apr, [place] [address] 50215- 0982 Mar, Headache above the eye region R51 ; Lumbago with sciatica, unspecified side M54.40 ; Edema, unspecified type R60.9 and Migraine without status migrainosus, not intractable, unspecified migraine type G43.909 [place] [address] [place] [id number] [place] [address] 89687- 2570 Mar, Chronic obstructive pulmonary disease, unspecified COPD type J44.9 ; Type 2 diabetes mellitus with hyperosmolarity without coma, without long-term current use of insulin E11.00 ; Other chronic pain G89.29 ; Migraine without status migrainosus, not intractable, unspecified migraine type G43.909 ; Left-sided chest wall pain R07.89 and Anxiety about health F41.[address] 11569- 1132 Mar, [place] [address] 91518- 0052 Mar, [place] [address] [place] [address]- 4161 Mar, [place] [address] [place] [id number] [place] [address] 60443- 8458 Feb, [place] [address] [place] [address] 42343- 8085 Feb, [place] [address] [place] [id number] [place] [address] 46195- 3021 Feb, Chronic fatigue R53.82 ; Lumbago with sciatica, unspecified side M54.40 ; Gastroesophageal reflux disease with esophagitis K21.0 ; Other chronic pain G89.29 ; Morbid obesity due to excess calories E66.01 ; Migraine without status migrainosus, not intractable, unspecified migraine type G43.909 and Edema, unspecified type R60.9 [facility] [address] [place] [address] [id number] Feb, Dental examination Z01.20 [place] [address] [place] [id number] [place] [address] 32388- 4520 Feb, [place] [address] [place] [id number] [place] [address] 82371- 5709 Feb, Type 2 diabetes mellitus with hyperosmolarity without coma, without long-term current use of insulin E11.00 ; Chronic fatigue R53.82 ; Gastroesophageal reflux disease with esophagitis K21.0 ; Morbid obesity due to excess calories E66.01 ; Lumbago with sciatica, unspecified side M54.40 and Other chronic pain G89.29 [place] [address] [place] [address] 59235- 8364 Feb, Type 2 diabetes mellitus with hyperosmolarity without coma, without long-term current use of insulin E11.00 ; Chronic fatigue R53.82 ; Gastroesophageal reflux disease with esophagitis K21.0 ; Morbid obesity due to excess calories E66.01 ; Lumbago with sciatica, unspecified side M54.40 and Other chronic pain G89.29 [facility] [address] [place] [address] [id number] Feb, Dental examination Z01.20 [facility] [address] [id number] [place] [address] 2546 Jan, [facility] [address] [facility] [id number] [address]- 2546 Mar, [facility] [address] [place] [id number] [id number] Feb, Dental examination V72.2 [facility] [address] [facility] [id number], [place] [address] 2546 Oct, [facility] [address] [facility] [id number] [place] [address] 2546 Oct, [facility] [address] [place] [id number] [place] [address]- 2546 Aug, [facility] [address] [address]- 2396 Aug, [facility] [address] [place] [id number] [address]- 6856 Jul, [facility] [address] [place] [id number] [place] [address]- 0666 Jul, [facility] [address] [place] [id number] [address]- 8906 Jun, [facility] [address] [place] [id number] [place] [address]- 8836 Jun, [facility] [address] [facility] [id number] [address]- 2546 Jun, [facility] [address] [facility] [id number] [address]- 6806 Jun, [facility] [address] [facility] [id number] [place] [address]- 2546 Jun, [facility] [address] [place] [id number] [address]- 8726 Jun, [facility] [place] [facility] [address] [id number] [place] [address]- 3210 Jun, [facility] [place] [facility] [address] [id number] [place] [address]- 0245 Jun, [facility] [place] [facility] [address] [id number] [place] 4314 Jun, [facility] [place] [facility] [address] [id number] [place] [address]- 5230 Jun, [facility] [place] [facility] [address] [id number] [place] [address]- 7236 Jun, [facility] [place] [facility] [address] [id number] [place] [address]- 9135 Jun, [facility] [place] [facility] [address] [id number] [place] [address]- 9510 Jun, [facility] [place] [facility] [address] [id number] [place] [address]- 6195 May, [facility] [place] [facility] [address] [id number] [place] [address]- 3816 May, [facility] [place] [facility] [address] [id number] [place] [address]- 1212 May, [facility] [place] [facility] [address] [id number] [place] [address]- 1820 May, [facility] [place] [facility] [address] [id number] [place] [address]- 1718 Apr, [facility] [place] [facility] [address] [id number] [place] [address]- 9102 Apr, [facility] [place] [facility] [address] [id number] [place] [address]- 4923 Apr, [facility] [place] [facility] [address] [id number] [place] [address]- 4565 Apr, [facility] [place] [facility] [address] [id number] [place] [address]- 7015 Apr, [facility] [address] [id number], [place] [address]- 4269 Apr, [facility] [address] [facility] [id number], [place] [address]- 1946 Apr, [facility] [address] [facility] [id number] [address]- 5316 Apr, [facility] [address] [id number], [place] [address]- 5254 Apr, [facility] [address] [id number] [address]- 5651 Apr, [facility] [address] [facility] [id number], [place] [address]- 1288 Mar, [facility] [address] [facility] [id number], [place] [address]- 8864 Mar, [facility] [address] [facility] [id number], [place] [address]- 2622 Feb, [facility] [address] [facility] [id number] 1987 Feb, [facility] [address] [facility] [id number] 8195 Feb, [facility] [address] [facility] [id number], [place] [address]- 6520 Feb, [facility] [address] [facility] [id number] 0307 Jan, [facility] [address] [facility] [id number], [place] [address]- 2507 Jan, IMMUNIZATIONS No Known Immunizations SOCIAL HISTORY Never Assessed REASON FOR VISIT Glucometer PLAN OF CARE VITAL SIGNS MEDICATIONS Medication Instructions Dosage Frequency Start Date End Date Duration Status Blood Glucose Monitor System w/Device as directed Jul, Active Blood Glucose Test - In Vitro 2 times a day DX: E11.65 test blood sugar Jul, Active RESULTS No Results PROCEDURES No [...] and UTI 02/2017 Hospitalization History [facility] [place]- UTI 11/23/2017
--- OUTSIDE RECORDS SUMMARY | 2018-04-14 19:16 | XMS REPORT ---
Author Author CINDY BOX Organization [facility], [place] Address [address] [place] [address] Care Team Providers Care Drying Frame Operator Name Role Phone CINDY BOX Unavailable PROBLEMS Type Condition ICD9-CM Code FMI01-TJ Code Onset Dates Condition Status SNOMED Code Problem Essential hypertension I10 Active 36211716 Problem Recurrent major depressive disorder, in full remission F33.42 Active 507260847 Problem Anxiety F41.9 Active 12277417 Problem Chronic migraine without aura without status migrainosus, not intractable G43.709 Active 081133878 Problem CPAP (continuous positive airway pressure) dependence Z99.89 Active 214432251 Problem Mixed incontinence urge and stress N39.46 Active 451469058 Problem 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 Active 5972164870341102 Problem 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.29 Active 637000365 Problem Proteinuria, unspecified R80.9 Active 27830445 Problem Multinodular goiter E04.2 Active 654009277 Problem Type 2 diabetes mellitus with hyperglycemia, without long-term current use of insulin E11.65 Active 29637995 Problem Chronic obstructive pulmonary disease, unspecified COPD type J44.9 Active 92752210 Problem Morbid obesity due to excess calories E66.01 Active 045643404 Problem Primary osteoarthritis of left knee M17.12 Active 998205776104697 Problem Obstructive sleep apnea syndrome G47.33 Active 34071944 Problem Lumbago with sciatica, unspecified side M54.40 Active 615142999 Problem Other chronic pain G89.29 Active 29947926 Problem Chronic fatigue R53.82 Active 76073727 Problem Hypercholesterolemia E78.00 Active 52569091 Problem Gastroesophageal reflux disease with esophagitis K21.0 Active 911908700 Problem Bipolar 1 disorder F31.9 Active 620085048 ALLERGIES No Information ENCOUNTERS Encounter Location Date Diagnosis [facility], [place] [id number] [address] Jan, [place] [address] [place] [id number] [place] [address] November, [place] [id number] [place] [address] 7[address]86- [address]108 November, Chronic migraine without aura without status migrainosus, not intractable G43.[address] [address] November, Type 2 diabetes mellitus with hyperglycemia, without long- term current use of insulin E11.65 ; Dysuria R30.0 ; Acute cystitis without hematuria N30.00 ; Lumbago with sciatica, unspecified side M54.40 ; Other chronic pain G89.29 ; Chronic obstructive pulmonary disease, unspecified COPD type J44.9 ; Chest pain, unspecified type R07.9 ; Absent pedal pulses R09.89 and BMI 40.0-44.9, adult Z68.41 [place] [id number] [place] [address]- 2829 Oct, Recurrent major depressive disorder, in full remission F33.42 and Anxiety F41.9 [place] [id number] [place] [address] 85480- 1443 Sep, Other chronic pain G89.[address] [address]- [address] Aug, Other chronic pain G89.29 [place] [id number] [place] [address] 65444- 5570 Aug, Chronic obstructive pulmonary disease, unspecified COPD [...] goiter E04.2 and BMI 40.0-44.9, adult Z68.41 [place] [address] [place] [id number] [place] [address] 18779- 9074 Aug, [place] [address] [address] Jul, Type 2 diabetes mellitus with hyperglycemia, without long- term current use of insulin E11.65 [place] [address] [address]- 7[address] Jul, Type 2 diabetes mellitus with hyperglycemia, without long- term current use of insulin E11.65 [place] [address] 66757- 7196 Jul, [place] [address] 35566- 7876 Jul, Type 2 diabetes mellitus with hyperglycemia, [...] immunization Z23 and BMI 40.0-44.9, adult Z68.41 [place] [address] [address]- [address] Jun, Migraine without status migrainosus, not intractable, unspecified migraine type G43.909 ; Hypercholesterolemia E78.00 and Lumbago with sciatica, unspecified side M54.40 [place] [address] 20467- 0763 Jun, Recurrent major depressive disorder, in full remission F33.42 and Anxiety F41.9 [place] [address] [place] [id number] [place] [address] 60818- 7051 Jun, [place] [address] [place] [id number] [place] [address] 09895- 7963 May, Hypercholesterolemia E78.00 ; 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.29 ; Migraine without status migrainosus , not intractable, unspecified migraine type G43.909 and Lumbago with sciatica, unspecified side M54.40 [place] [address] 7[address]- 29[address] 14 May, 2017 Multinodular goiter E04.2 [place] [address] 23060- 4140 May, [place] [address] 60341- 6250 Apr, Multinodular goiter E04.2 [place] [address] [place] [id number] [place] [address] 06335- 3239 06 Apr, 2017 Abnormal imaging of thyroid R94.6 ; Hypercholesterolemia E78.00 and 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.29 [place] [address] [id number] [place] [address] 34143- 1168 Mar, Abnormal imaging of thyroid R94.6 [place] [address] [place] [id number] [place] [address] 78885- 3002 20 Mar, 2017 Chest wall mass R22.2 [place] [address] [id number] [place] [address] 65435- 2353 07 Mar, 2017 Type 2 diabetes mellitus with hyperglycemia, without long- term current use of insulin E11.65 ; Gastroesophageal reflux disease with esophagitis K21.0 ; Hypercholesterolemia E78.00 ; Proteinuria, unspecified R80.9 ; 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.29 ; Chest wall mass R22.2 and Precordial pain R07.2 [place] [address] [address] Feb, Recurrent major depressive disorder, in full remission F33.42 [place] [address] [place] [id number] [place] [address] 41320- 8430 Feb, Recurrent major depressive disorder, in full remission F33.42 and Anxiety F41.9 [place] [address] [place] [id number] [place] [address] 47259- 7393 Feb, [facility] [id number] [place] [id number] Jan, Dental examination Z01.20 and Dental caries K02.9 [place] [id number] [place] [address] 78656- 7020 Dec, [place] [address] [place] [id number] [place] [address] 95230- 4321 Dec, [place] [address] [place] [address] [id number] [place] [address] 65271- 9618 Dec, Type 2 diabetes mellitus with hyperosmolarity [...] and Stress incontinence ( female) (male) N39.3 [facility] [id number] [place] [id number] Dec, Dental caries K02.9 [facility] [place] [address] [address] November, [place] [address] [place] [id number] [place] [address] 72329- 0799 November, Essential hypertension I10 ; Other chronic pain G89.29 ; Gastroesophageal reflux disease without esophagitis K21.9 and Anxiety F41.9 [facility] [id number] [place] [address] [id number] November, Dental examination Z01.20 [facility] [place] [address] [address] [id number] [place] [address] 27872- 1741 Oct, Recurrent major depressive disorder, in full remission F33.42 [place] [address] [place] [address] [id number] [place] [address] 36151- 7534 Sep, Other chronic pain G89.29 [place] [address] [address] [id number] [place] [address] 31509- 2980 Sep, Other chronic pain G89.29 and Bipolar 1 disorder F31.9 [place] [address] [place] [id number] [place] [address] 46594- 6641 Aug, Other chronic pain G89.29 [place] [address] [place] [address] [id number] [place] [address] 18058- 9425 Jul, Gastroesophageal reflux disease without esophagitis K21.9 [place] [address] [address] [id number] [place] [address] 55267- 9267 Jun, Migraine without status migrainosus, not intractable, unspecified migraine type G43.909 [place] [address] [place] [address] 07361- 8021 Jun, Type 2 diabetes mellitus with hyperosmolarity [...] ; Essential hypertension I10 and Hypercholesterolemia E78.00 [place] [address] 84600- 6313 May, [place] [address] 12844- 4108 Apr, Edema, unspecified type R60.9 ; Type [...] Z23 and Stress incontinence (female) (male) N39.3 [place] [address] 82735- 3010 Apr, [place] [address] 73625- 2528 Mar, Headache above the eye region R51 ; Lumbago with sciatica, unspecified side M54.40 ; Edema, unspecified type R60.9 and Migraine without status migrainosus, not intractable, unspecified migraine type G43.909 [place] [address] 90484- 8608 Mar, Chronic obstructive pulmonary disease, unspecified COPD type J44.9 ; Type 2 diabetes mellitus with hyperosmolarity without coma, without long-term current use of insulin E11.00 ; Other chronic pain G89.29 ; Migraine without status migrainosus, not intractable, unspecified migraine type G43.909 ; Left-sided chest wall pain R07.89 and Anxiety about health F41.8 [place] [address] 85395- 2240 Mar, [place] [address] 97595- 3643 Mar, [place] [address] 08394- 4727 Mar, [place] [address] [address] 8[address] Feb, [place] [address] [address]- 5747 Feb, [place] [address] [address]- [address] Feb, Chronic fatigue R53.82 ; Lumbago with sciatica, unspecified side M54.40 ; Gastroesophageal reflux disease with esophagitis K21.0 ; Other chronic pain G89.29 ; Morbid obesity due to excess calories E66.01 ; Migraine without status migrainosus, not intractable, unspecified migraine type G43.909 and Edema, unspecified type R60.9 [facility] [address] [id number] Feb, Dental examination Z01.20 [place] [id number] [place] [address] 60844- 0250 Feb, [place] [address] [place] [address] 63153- 7230 Feb, Type 2 diabetes mellitus with hyperosmolarity without coma, without long-term current use of insulin E11.00 ; Chronic fatigue R53.82 ; Gastroesophageal reflux disease with esophagitis K21.0 ; Morbid obesity due to excess calories E66.01 ; Lumbago with sciatica, unspecified side M54.40 and Other chronic pain G89.29 [place] [address] [id number] [address]- 9626 Feb, Type 2 diabetes mellitus with hyperosmolarity without coma, without long-term current use of insulin E11.00 ; Chronic fatigue R53.82 ; Gastroesophageal reflux disease with esophagitis K21.0 ; Morbid obesity due to excess calories E66.01 ; Lumbago with sciatica, unspecified side M54.40 and Other chronic pain G89.29 [facility] [address] [id number] Feb, Dental examination Z01.20 [facility] [address] [id number] [place] [address]- [address]65 Jan, [facility] [address] [facility] [id number] [place] [address]- 1666 Mar, [facility] [address] [id number] [id number] Feb, Dental examination V72.2 [facility] [address] [id number] [address]- 2859 Oct, [facility] [address] [facility] [id number] [place] [address], [place] [address]- 2179 Oct, [facility] [address] [facility] [id number] [place] [address] 779093- 2899 Aug, [facility] [id number] [place] [address] 66586- 3746 Aug, [facility] [address], [place] [address]- 8217 Jul, [facility] [address] Jul, [facility] [address] Jun, [facility] [address] [address]- 8460 Jun, [facility] [address] [facility] [id number] [address] [address]326 Jun, [facility] [address] [facility] [id number] [address]- 9594 Jun, [facility] [address] [facility] [id number] [address]- 6986 Jun, [facility] [address] [address]- 0646 Jun, [facility] [place] [facility] [address] [id number] [place] [address]- 7977 Jun, [facility] [place] [facility] [address] [id number] [place] [address] Jun, [facility] [place] [facility] [address] [id number] [place] [address]- 6756 Jun, [facility] [place] [facility] [address] [id number] [place] [address]- 6538 Jun, [facility] [place] [facility] [address] [id number] [place] [address]- 8634 Jun, [facility] [place] [facility] [address] [id number] [place] [address] Jun, [facility] [place] [facility] [address] [id number] [place] [address]84 Jun, [facility] [place] [facility] [address] [id number] [place] [address]- 4153 May, [facility] [place] [facility] [address] [id number] [place] [address]- 0799 May, [facility] [place] [facility] [address] [id number] [place] [address]- 9597 May, [facility] [place] [facility] [address] [id number] [place] [address]- 1811 May, [facility] [place] [facility] [address] [id number] [place] [address]- 4283 Apr, [facility] [place] [facility] [address] [id number] [place] [address]- 4786 Apr, [facility] [place] [facility] [address] [id number] [place] [address]- 5598 Apr, [facility] [place] [facility] [address] [id number] [place] 2709 Apr, [facility] [place] [facility] [address] [id number] [place] [address]- 6851 Apr, [facility] [place] [address] [facility] [id number] [address] Apr, [facility] [place] [address] [facility] [id number] [address]- 1760 Apr, [facility] [place] [address] [id number] [address]- 2553 Apr, [facility] [place] [address] [facility] [id number] 7584 Apr, [facility] [place] [address] [facility] [id number] 3053 Apr, [facility] [place] [address] [place] [id number] [place] [address] 380245- 8201 Mar, [facility] [place] [address] [address] Mar, [facility] [place] [address] [address]- 5105 Feb, [facility] [place] [address] [id number] [address]- 0785 Feb, [facility] [place] [address] [address]- 2689 Feb, [facility] [place] [address] [address]- 1666 Feb, [facility] [place] [address] [id number] [address]- 1892 Jan, [facility] [place] [address] [id number] [address]- 5620 Jan, IMMUNIZATIONS No Known Immunizations SOCIAL HISTORY Never Assessed REASON FOR VISIT Refill request PLAN OF CARE VITAL SIGNS MEDICATIONS Medication Instructions Dosage Frequency Start Date End Date Duration Status Omeprazole 20 MG TAKE ONE CAPSULE BY MOUTH ONCE DAILY BEFORE A MEAL 30 Active RESULTS No Results PROCEDURES No Known [...] pain and UTI 02/2017 Hospitalization History ED [place]- UTI 11/23/2017
--- OUTSIDE RECORDS SUMMARY | 2018-04-14 19:16 | XMS REPORT ---
Author Author OBINNA HARDING [facility] Address [address] [place] [address] Care Team Providers Care Lighter Name Role Phone OBINNA HARDING Unavailable PROBLEMS Type Condition ICD9-CM Code EVG96-OH Code Onset Dates Condition Status SNOMED Code Problem Essential hypertension I10 Active 31486533 Problem Recurrent major depressive disorder, in full remission F33.42 Active 954383819 Problem Anxiety F41.9 Active 14343954 Problem Chronic migraine without aura without status migrainosus, not intractable G43.709 Active 216300904 Problem CPAP (continuous positive airway pressure) dependence Z99.89 Active 839125818 Problem Mixed incontinence urge and stress N39.46 Active 719952684 Problem 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 Active 4713000219814138 Problem 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.29 Active 999607523 Problem Proteinuria, unspecified R80.9 Active 97545176 Problem Multinodular goiter E04.2 Active 432751619 Problem Type 2 diabetes mellitus with hyperglycemia, without long-term current use of insulin E11.65 Active 30090012 Problem Chronic obstructive pulmonary disease, unspecified COPD type J44.9 Active 21275791 Problem Morbid obesity due to excess calories E66.01 Active 277644472 Problem Primary osteoarthritis of left knee M17.12 Active 159576989669089 Problem Obstructive sleep apnea syndrome G47.33 Active 39199212 Problem Lumbago with sciatica, unspecified side M54.40 Active 748079245 Problem Other chronic pain G89.29 Active 74007334 Problem Chronic fatigue R53.82 Active 97741164 Problem Hypercholesterolemia E78.00 Active 34094465 Problem Gastroesophageal reflux disease with esophagitis K21.0 Active 855481732 Problem Bipolar 1 disorder F31.9 Active 732574683 ALLERGIES No Information ENCOUNTERS Encounter Location Date Diagnosis [facility] [id number] [place] [address]8893- 9814 Jan, [place] [id number] [place] [address] 86370- 0050 November, [place] [id number] [place] [address] 18334- 2145 November, Chronic migraine without aura without status migrainosus, not intractable G43.709 [place] [id number] [place] [address] 50072- 3800 November, Type 2 diabetes mellitus with hyperglycemia, without long- term current use of insulin E11.65 ; Dysuria R30.0 ; Acute cystitis without hematuria N30.00 ; Lumbago with sciatica, unspecified side M54.40 ; Other chronic pain G89.29 ; Chronic obstructive pulmonary disease, unspecified COPD type J44.9 ; Chest pain, unspecified type R07.9 ; Absent pedal pulses R09.89 and BMI 40.0-44.9, adult Z68.41 [place] [id number] [place] [address] 24346- 8249 Oct, Recurrent major depressive disorder, in full remission F33.42 and Anxiety F41.9 [place] [id number] [place] [address] 53244- 1658 Sep, Other chronic pain G89.29 [place] [id number] [place] [address] 69300- 1706 Aug, Other chronic pain G89.29 [place] [id number] [place] [address] 26283- 8614 Aug, Chronic obstructive pulmonary disease, unspecified COPD [...] goiter E04.2 and BMI 40.0-44.9, adult Z68.41 [place] [address] [place] [id number] [place] [address] 67636- 0275 Aug, [place] [address] 94413- 6295 Jul, Type 2 diabetes mellitus with hyperglycemia, without long- term current use of insulin E11.65 [place] [address] 38383- 5612 Jul, Type 2 diabetes mellitus with hyperglycemia, without long- term current use of insulin E11.65 [place] [address] [place] [id number] [place] [address] 42214- 0944 Jul, [place] [address] 64117- 3840 Jul, Type 2 diabetes mellitus with hyperglycemia, [...] immunization Z23 and BMI 40.0-44.9, adult Z68.41 [place] [address] [place] [id number] [place] [address] 18852- 4527 Jun, Migraine without status migrainosus, not intractable, unspecified migraine type G43.909 ; Hypercholesterolemia E78.00 and Lumbago with sciatica, unspecified side M54.40 [place] [id number] [place] [address] 14533- 2411 Jun, Recurrent major depressive disorder, in full remission F33.42 and Anxiety F41.9 [place] [address] 79521- 4237 Jun, [place] [address] 31370- 5334 May, Hypercholesterolemia E78.00 ; 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.29 ; Migraine without status migrainosus , not intractable, unspecified migraine type G43.909 and Lumbago with sciatica, unspecified side M54.40 [place] [address] 55043- 2426 14 May, 2017 Multinodular goiter E04.2 [place] [address] 84063- 3375 May, [place] [address] 44674- 6204 Apr, Multinodular goiter E04.2 [place] [address] [place] [id number] [place] [address] 72157- 9497 Apr, Abnormal imaging of thyroid R94.6 ; Hypercholesterolemia E78.00 and 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.29 [place] [address] [place] [id number] [place] [address] 99054- 8761 Mar, Abnormal imaging of thyroid R94.6 [place] [address] [place] [id number] [place] [address] 17594- 0923 20 Mar, 2017 Chest wall mass R22.2 [place] [address] [place] [id number] [place] [address] 35951- 4369 07 Mar, 2017 Type 2 diabetes mellitus with hyperglycemia, without long- term current use of insulin E11.65 ; Gastroesophageal reflux disease with esophagitis K21.0 ; Hypercholesterolemia E78.00 ; Proteinuria, unspecified R80.9 ; 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.29 ; Chest wall mass R22.2 and Precordial pain R07.2 [place] [address] [address]- 6465 Feb, Recurrent major depressive disorder, in full remission F33.42 [place] [address] [place] [id number] [place] [address] 06500- 6876 Feb, Recurrent major depressive disorder, in full remission F33.42 and Anxiety F41.9 [place] [address] [place] [id number] [place] [address] 45399- 7059 Feb, [facility] [address] [place] [address] [id number] Jan, Dental examination Z01.20 and Dental caries K02.9 [place] [id number] [place] [address] 73602- 9775 Dec, [place] [address] [place] [id number] [place] [address] 44434- 4450 Dec, [place] [address] [place] [id number] [place] [address] 91243- 7200 Dec, Type 2 diabetes mellitus with hyperosmolarity [...] and Stress incontinence ( female) (male) N39.3 [facility] [address] [place] [id number] [place] [address] [id number] Dec, Dental caries K02.9 [place] [address] [address]- 4261 November, [place] [address] [place] [id number] [place] [address] 49255- 1712 November, Essential hypertension I10 ; Other chronic pain G89.29 ; Gastroesophageal reflux disease without esophagitis K21.9 and Anxiety F41.9 [facility] [address] [place] [address] [id number] November, Dental examination Z01.20 [facility] [address] [place] [id number] [place] [address] 60019- 5297 Oct, Recurrent major depressive disorder, in full remission F33.42 [place] [address] [place] [id number] [place] [address] 75188- 3250 Sep, Other chronic pain G89.29 [place] [address] [place] [id number] [place] [address] 02373- 1858 Sep, Other chronic pain G89.29 and Bipolar 1 disorder F31.9 [place] [id number] [place] [address] 95130- 0949 Aug, Other chronic pain G89.29 [place] [address] [place] [id number] [place] [address] 01516- 3549 Jul, Gastroesophageal reflux disease without esophagitis K21.9 [place] [address] [place] [id number] [place] [address] 64976- 8385 Jun, Migraine without status migrainosus, not intractable, unspecified migraine type G43.909 [place] [address] [place] [address] 72776- 4022 Jun, Type 2 diabetes mellitus with hyperosmolarity [...] ; Essential hypertension I10 and Hypercholesterolemia E78.00 [place] [address] [place] [id number] [place] [address] 18488- 2533 May, [place] [address] 66817- 9285 Apr, Edema, unspecified type R60.9 ; Type [...] Z23 and Stress incontinence (female) (male) N39.3 [place] [address] 07207- 3530 Apr, [place] [address] 56000- 5219 Mar, Headache above the eye region R51 ; Lumbago with sciatica, unspecified side M54.40 ; Edema, unspecified type R60.9 and Migraine without status migrainosus, not intractable, unspecified migraine type G43.909 [place] [address] [place] [id number] [place] [address] 48006- 6220 Mar, Chronic obstructive pulmonary disease, unspecified COPD type J44.9 ; Type 2 diabetes mellitus with hyperosmolarity without coma, without long-term current use of insulin E11.00 ; Other chronic pain G89.29 ; Migraine without status migrainosus, not intractable, unspecified migraine type G43.909 ; Left-sided chest wall pain R07.89 and Anxiety about health F41.[address] 10622- 0722 Mar, [place] [address] 69728- 4561 Mar, [place] [address] [place] [address]- 1015 Mar, [place] [address] [place] [id number] [place] [address] 99806- 9648 Feb, [place] [address] [place] [address] 04040- 8097 Feb, [place] [address] [place] [id number] [place] [address] 94746- 7282 Feb, Chronic fatigue R53.82 ; Lumbago with sciatica, unspecified side M54.40 ; Gastroesophageal reflux disease with esophagitis K21.0 ; Other chronic pain G89.29 ; Morbid obesity due to excess calories E66.01 ; Migraine without status migrainosus, not intractable, unspecified migraine type G43.909 and Edema, unspecified type R60.9 [facility] [address] [place] [address] [id number] Feb, Dental examination Z01.20 [place] [address] [place] [id number] [place] [address] 46298- 0542 Feb, [place] [address] [place] [id number] [place] [address] 24578- 8786 Feb, Type 2 diabetes mellitus with hyperosmolarity without coma, without long-term current use of insulin E11.00 ; Chronic fatigue R53.82 ; Gastroesophageal reflux disease with esophagitis K21.0 ; Morbid obesity due to excess calories E66.01 ; Lumbago with sciatica, unspecified side M54.40 and Other chronic pain G89.29 [place] [address] [place] [address] 01255- 1475 Feb, Type 2 diabetes mellitus with hyperosmolarity without coma, without long-term current use of insulin E11.00 ; Chronic fatigue R53.82 ; Gastroesophageal reflux disease with esophagitis K21.0 ; Morbid obesity due to excess calories E66.01 ; Lumbago with sciatica, unspecified side M54.40 and Other chronic pain G89.29 [facility] [address] [place] [address] [id number] Feb, Dental examination Z01.20 [facility] [address] [id number] [address] 2546 Jan, [facility] [id number] [address]- 2546 Mar, [facility] [address] [place] [id number] [id number] Feb, Dental examination V72.2 [facility] [address] [id number] [address] 2546 Oct, [facility] [address] [id number] [place] [address] 2546 Oct, [facility] [address] [place] [id number] [place] [address]- 2546 Aug, [facility] [address] [address]- 4226 Aug, [facility] [address] [place] [id number] [address]- 9296 Jul, [facility] [address] [place] [id number] [place] [address]- 2966 Jul, [facility] [address] [place] [id number] [address]- 3316 Jun, [facility] [address] [place] [id number] [place] [address]- 9616 Jun, [facility] [address] [id number][place] [address]- 2546 Jun, [facility] [address] [id number], [place] [address]- 6376 Jun, [facility] [address] [id number] [place] [address]- 2546 Jun, [facility] [address] [place] [id number] [address]- 4646 Jun, [facility] [place] [facility] [address] [id number] [place] [address]- 4433 Jun, [facility] [place] [facility] [address] [id number] [place] [address]- 3204 Jun, [facility] [place] [facility] [address] [id number] [place] 7883 Jun, [facility] [place] [facility] [address] [id number] [place] [address]- 3249 Jun, [facility] [place] [facility] [address] [id number] [place] [address]- 1018 Jun, [facility] [place] [facility] [address] [id number] [place] [address]- 2925 Jun, [facility] [place] [facility] [address] [id number] [place] [address]- 2808 Jun, [facility] [place] [facility] [address] [id number] [place] [address]- 1623 May, [facility] [place] [facility] [address] [id number] [place] [address]- 9027 May, [facility] [place] [facility] [address] [id number] [place] [address]- 7794 May, [facility] [place] [facility] [address] [id number] [place] [address]- 0647 May, [facility] [place] [facility] [address] [id number] [place] [address]- 7461 Apr, [facility] [place] [facility] [address] [id number] [place] [address]- 5018 Apr, [facility] [place] [facility] [address] [id number] [place] [address]- 8320 Apr, [facility] [place] [facility] [address] [id number] [place] [address]- 4052 Apr, [facility] [place] [facility] [address] [id number] [place] [address]- 4826 Apr, [facility] [address] [id number]- 1739 Apr, [facility] [address] [id number], [place] [address]- 6086 Apr, [facility] [address] [id number], [place] [address]- 8138 Apr, [facility] [address] [id number], [place] [address]- 4618 Apr, [facility] [address] [id number], [place] [address]- 9470 Apr, [facility] [address] [id number], [place] [address]- 9924 Mar, [facility] [address] [place] [id number] 3161 Mar, [facility] [address] [place] [id number] [address]- 4451 Feb, [facility] [address] [id number][place]- 2339 Feb, [facility] [address]- 7473 Feb, [facility] [address] [place] [id number] 2757 Feb, [facility] [address] [place] [id number]- 9868 Jan, [facility] [address] [place] [id number] [address]- 0273 Jan, IMMUNIZATIONS No Known Immunizations SOCIAL HISTORY Never Assessed REASON FOR VISIT Refill request PLAN OF CARE VITAL SIGNS MEDICATIONS Medication Instructions Dosage Frequency Start Date End Date Duration Status Atorvastatin Calcium 10 mg Orally Once a day 1 tablet 24h Feb, 30 days Active Topiramate 50 mg Orally twice a day TAKE THREE TABLETS BY MOUTH TWICE DAILY 12h 30 Active Gabapentin 300 MG Orally 3 times a day 3 capsules 8h 30 days Active Metformin HCl 500 mg Orally twice a day TAKE ONE TABLET BY MOUTH TWICE DAILY WITH MEALS 12h 30 Active Oxybutynin Chloride 5 mg Orally twice a day TAKE ONE TABLET BY MOUTH TWICE DAILY 12h 30 Active Propranolol HCl 20 mg Orally Twice a day TAKE ONE TABLET BY MOUTH TWICE DAILY 12h 30 Active Tizanidine HCl 2 MG Orally every 8 hrs 1 tablet as needed 8h 30 days Active RESULTS No Results [...] Hospitalization History psychiatric stay s/p overdose in [place] in 2006 Hospitalization History chest pain and UTI 02/2017 Hospitalization History ED [place]- UTI 11/23/2017
--- OUTSIDE RECORDS SUMMARY | 2018-04-14 19:19 | XMS REPORT ---
Author Author ASHLEY KEE Organization [facility] Address [address] [place] [address] Care Team Providers Care Glaze Handler Name Role Phone ASHLEY KEE Unavailable PROBLEMS Type Condition ICD9-CM Code HVU41-GR Code Onset Dates Condition Status SNOMED Code Problem Essential hypertension I10 Active 35274618 Problem Recurrent major depressive disorder, in full remission F33.42 Active 992815281 Problem Anxiety F41.9 Active 70647430 Problem Chronic migraine without aura without status migrainosus, not intractable G43.709 Active 022242842 Problem CPAP (continuous positive airway pressure) dependence Z99.89 Active 279825790 Problem Mixed incontinence urge and stress N39.46 Active 273724079 Problem 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 Active 0946219428312374 Problem 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.29 Active 223183079 Problem Proteinuria, unspecified R80.9 Active 18547563 Problem Multinodular goiter E04.2 Active 499236759 Problem Type 2 diabetes mellitus with hyperglycemia, without long-term current use of insulin E11.65 Active 35705015 Problem Chronic obstructive pulmonary disease, unspecified COPD type J44.9 Active 83534795 Problem Morbid obesity due to excess calories E66.01 Active 998446828 Problem Primary osteoarthritis of left knee M17.12 Active 701781320888620 Problem Obstructive sleep apnea syndrome G47.33 Active 69677692 Problem Lumbago with sciatica, unspecified side M54.40 Active 959197122 Problem Other chronic pain G89.29 Active 72480616 Problem Chronic fatigue R53.82 Active 98912528 Problem Hypercholesterolemia E78.00 Active 50177582 Problem Gastroesophageal reflux disease with esophagitis K21.0 Active 237270110 Problem Bipolar 1 disorder F31.9 Active 940437454 ALLERGIES Substance Reaction Event Type Date Status Penicillin V Potassium Unknown Drug Allergy Jun, Active Iodine Unknown Drug Allergy Jun, Active ENCOUNTERS Encounter Location Date Diagnosis [place] [address], [place] [address] Jan, [place] [address] [place] [id number] [place] [address] 94265- 5282 November, [place] [address] [place] [id number] [place] [address] 02967- 5271 November, Chronic migraine without aura without status migrainosus, not intractable G43.709 [place] [address] [place] [id number] [place] [address] 05649- 7398 November, Type 2 diabetes mellitus with hyperglycemia, without long- term current use of insulin E11.65 ; Dysuria R30.0 ; Acute cystitis without hematuria N30.00 ; Lumbago with sciatica, unspecified side M54.40 ; Other chronic pain G89.29 ; Chronic obstructive pulmonary disease, unspecified COPD type J44.9 ; Chest pain, unspecified type R07.9 ; Absent pedal pulses R09.89 and BMI 40.0-44.9, adult Z68.41 [place] [address] [place] [address] 04419- 8360 Oct, Recurrent major depressive disorder, in full remission F33.42 and Anxiety F41.9 [place] [address], [place] [address] Sep, Other chronic pain G89.29 [place] [address] [place] [id number] [place] [address] 24452- 2446 Aug, Other chronic pain G89.29 [place] [address] [place] [address] 02310- 8949 Aug, Chronic obstructive pulmonary disease, unspecified COPD [...] goiter E04.2 and BMI 40.0-44.9, adult Z68.41 [place] [address] [place] [id number] [place] [address] 47291- 9549 Aug, [place] [address] [address]- [address] Jul, Type 2 diabetes mellitus with hyperglycemia, without long- term current use of insulin E11.65 [place] [address] [place] [id number] [place] [address] 05341- 7075 Jul, Type 2 diabetes mellitus with hyperglycemia, without long- term current use of insulin E11.65 [place] [address] [place] [id number] [place] [address] 06743- 8504 Jul, [place] [address] [place] [id number] [place] [address] 97430- 7456 Jul, Type 2 diabetes mellitus with hyperglycemia, [...] immunization Z23 and BMI 40.0-44.9, adult Z68.41 [place] [address] [place] [id number] [place] [address] 30302- 3000 Jun, Migraine without status migrainosus, not intractable, unspecified migraine type G43.909 ; Hypercholesterolemia E78.00 and Lumbago with sciatica, unspecified side M54.40 [place] [address] [place] [id number] [place] [address] 47424- 8096 11 Jun, 2017 Recurrent major depressive disorder, in full remission F33.42 and Anxiety F41.9 [place] [address] [place] [id number] [place] [address] 87335- 5238 Jun, [place] [address] 17497- 4073 May, Hypercholesterolemia E78.00 ; 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.29 ; Migraine without status migrainosus , not intractable, unspecified migraine type G43.909 and Lumbago with sciatica, unspecified side M54.40 [place] [address] [place] [id number] [place] [address] 34696- 5488 14 May, 2017 Multinodular goiter E04.2 [place] [id number] [place] [address] 26547- 8824 May, [place] [address] 90166- 3882 13 Apr, 2017 Multinodular goiter E04.2 [place] [id number] [place] [address] 29370- 4501 06 Apr, 2017 Abnormal imaging of thyroid R94.6 ; Hypercholesterolemia E78.00 and 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.29 [place] [id number] [place] [address] 96151- 3641 Mar, Abnormal imaging of thyroid R94.6 [place] [id number] [place] [address] 31337- 9206 Mar, Chest wall mass R22.2 [place] [id number] [place] [address] 22404- 3275 07 Mar, 2017 Type 2 diabetes mellitus with hyperglycemia, without long- term current use of insulin E11.65 ; Gastroesophageal reflux disease with esophagitis K21.0 ; Hypercholesterolemia E78.00 ; Proteinuria, unspecified R80.9 ; 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.29 ; Chest wall mass R22.2 and Precordial pain R07.2 [place] [address] [place] [id number] [place] [address] 88371- 1488 Feb, Recurrent major depressive disorder, in full remission F33.42 [place] [address] [place] [id number] [place] [address] 58299- 9268 Feb, Recurrent major depressive disorder, in full remission F33.42 and Anxiety F41.9 [place] [address] [place] [id number] [place] [address] 09483- 3737 Feb, [facility] [address] [id number] Jan, Dental examination Z01.20 and Dental caries K02.9 [place] [address] 70877- 6372 Dec, [place] [address] [place] [id number] [place] [address] 93335- 1752 Dec, [place] [address] [place] [id number] [place] [address] 35982- 7965 Dec, Type 2 diabetes mellitus with hyperosmolarity [...] and Stress incontinence ( female) (male) N39.3 [facility] [address] [place] [address] [id number] [place] [address] [id number] Dec, Dental caries K02.9 [place] [address] [place] [id number] [place] [address] 18001- 9506 November, [facility] [address] [place] [address] 50017- 6781 November, Essential hypertension I10 ; Other chronic pain G89.29 ; Gastroesophageal reflux disease without esophagitis K21.9 and Anxiety F41.9 [facility] [address] [place] [id number] [id number] November, Dental examination Z01.20 [place] [address] [place] [id number] [place] [address] 94120- 9040 Oct, Recurrent major depressive disorder, in full remission F33.42 [place] [address] [place] [id number] [place] [address] 56500- 2411 Sep, Other chronic pain G89.29 [place] [address] [place] [id number] [place] [address] 37877- 8423 Sep, Other chronic pain G89.29 and Bipolar 1 disorder F31.9 [place] [address] [place] [id number] [place] [address] 91863- 2791 Aug, Other chronic pain G89.29 [place] [address] [place] [id number] [place] [address] 97263- 8756 Jul, Gastroesophageal reflux disease without esophagitis K21.9 [place] [address] [place] [id number] [place] [address] 17770- 0327 Jun, Migraine without status migrainosus, not intractable, unspecified migraine type G43.909 [place] [address] [place] [address] 32287- 9290 Jun, Type 2 diabetes mellitus with hyperosmolarity [...] ; Essential hypertension I10 and Hypercholesterolemia E78.00 [place] [address] [place] [id number] [place] [address] 29420- 0673 May, [place] [address] [place] [id number] [place] [address] 55557- 0559 Apr, Edema, unspecified type R60.9 ; Type [...] Z23 and Stress incontinence (female) (male) N39.[address] 99118- 7407 Apr, [place] [address] 15486- 2201 Mar, Headache above the eye region R51 ; Lumbago with sciatica, unspecified side M54.40 ; Edema, unspecified type R60.9 and Migraine without status migrainosus, not intractable, unspecified migraine type G43.909 [place] [address] [place] [id number] [place] [address] 95882- 1778 Mar, Chronic obstructive pulmonary disease, unspecified COPD type J44.9 ; Type 2 diabetes mellitus with hyperosmolarity without coma, without long-term current use of insulin E11.00 ; Other chronic pain G89.29 ; Migraine without status migrainosus, not intractable, unspecified migraine type G43.909 ; Left-sided chest wall pain R07.89 and Anxiety about health F41.8 [place] [id number] [place] [address] 35287- 4299 Mar, [address] 28791- 1648 Mar, [facility] [address] [id number] [address] 6888 Mar, [facility] [address] [place] [address] 94788- 4284 Feb, [facility] [address], [place] [address]- 3459 Feb, [facility] [address] [place] [address] 85797- 3658 Feb, Chronic fatigue R53.82 ; Lumbago with sciatica, unspecified side M54.40 ; Gastroesophageal reflux disease with esophagitis K21.0 ; Other chronic pain G89.29 ; Morbid obesity due to excess calories E66.01 ; Migraine without status migrainosus, not intractable, unspecified migraine type G43.909 and Edema, unspecified type R60.9 [facility] [address] [place] [address] [id number] Feb, Dental examination Z01.20 [facility] [address], [place] [address]- 1856 Feb, [place] [address] [place] [address] 65044- 4435 Feb, Type 2 diabetes mellitus with hyperosmolarity without coma, without long-term current use of insulin E11.00 ; Chronic fatigue R53.82 ; Gastroesophageal reflux disease with esophagitis K21.0 ; Morbid obesity due to excess calories E66.01 ; Lumbago with sciatica, unspecified side M54.40 and Other chronic pain G89.29 [facility] [address] [id number] [address]- 7595 Feb, Type 2 diabetes mellitus with hyperosmolarity without coma, without long-term current use of insulin E11.00 ; Chronic fatigue R53.82 ; Gastroesophageal reflux disease with esophagitis K21.0 ; Morbid obesity due to excess calories E66.01 ; Lumbago with sciatica, unspecified side M54.40 and Other chronic pain G89.29 [facility] [address] [id number] [id number] Feb, Dental examination Z01.20 [facility] [address] [id number], [place] [address] Jan, [facility] [address] [facility] [id number], [place] [address] 2546 Mar, [facility] [address] [id number] [id number] Feb, Dental examination V72.2 [facility] [address] [id number] [place] [address]- 4016 Oct, [facility] [address] [facility] [id number], [place] [address] Oct, [facility] [address] [facility] [id number], [place] [address]- 5116 Aug, [facility] [address] [id number] 4977 Aug, [facility] [address] [facility] [id number], [place] [address]- 3590 Jul, [facility] [address] [facility] [id number] 2796 Jul, [facility] [address] [place] [address] [id number] [address] Jun, [facility] [address] [id number], [place] [address]- 7476 Jun, [facility] [address] [id number], [place] [address]- 7116 Jun, [facility] [address] [facility] [id number], [place] [address]- 4316 Jun, [facility] [address] [facility] [id number], [place] [address]- 0896 Jun, [facility] [address] [id number] [place] [address]- 7775 Jun, [facility] [place] [facility] [address] [id number] [place] [address]- 2810 Jun, [facility] [place] [facility] [address] [id number] [place] [address]6 Jun, [facility] [place] [facility] [address] [id number] [place] [address]852 Jun, [facility] [place] [facility] [address] [id number] [place] [address]- 6060 Jun, [facility] [place] [facility] [address] [id number] [place] [address]- 5046 Jun, [facility] [place] [facility] [address] [id number] [place] [address]- 2756 Jun, [facility] [place] [facility] [address] [id number] [place] [address]- 0016 Jun, [facility] [place] [facility] [address] [id number] [place] [address]- 1958 May, [facility] [place] [facility] [address] [id number] [place] [address]- 5703 May, [facility] [place] [facility] [address] [id number] [place] [address]- 3392 May, [facility] [place] [facility] [address] [id number] [place] [address]- 4482 May, [facility] [place] [facility] [address] [id number] [place] [address]- 4936 Apr, [facility] [place] [facility] [address] [id number] [place] [address]- 7794 Apr, [facility] [place] [facility] [address] [id number] [place] [address]- 3288 Apr, [facility] [place] [facility] [address] [id number] [place] [address]- 7449 Apr, [facility] [address] [id number], [place] [address]- 9945 Apr, [facility] [address] [facility] [id number] [place] 9989 Apr, [facility] [address] [facility] [id number] 5947 Apr, [facility] [address] [id number] [place] [address]95 Apr, [facility] [address] [id number] [place] 8433 Apr, [facility] [address] [facility] [id number] [place] [address]- 0087 Apr, [facility] [address] [facility] [id number] [place] [address] Mar, [facility] [address] [facility] [id number]- 7647 Mar, [facility] [address] [facility] [id number], [place] [address]- 3706 Feb, [facility] [address] [facility] [id number], [place] [address]- 5218 Feb, [facility] [address] [id number], [place] [address]- 9912 Feb, [facility] [address] [facility] [id number] 1108 Feb, [facility] [address] [facility] [id number] 5283 Jan, [facility] [address] [facility] [id number] [address] Jan, IMMUNIZATIONS No Known Immunizations SOCIAL HISTORY Never Assessed REASON FOR VISIT CASANDRA f/vinayak-Brittany Hidalgo MA PLAN OF CARE Activity Details Follow Up 3 Months Reason:CASANDRA f/u VITAL SIGNS Height 68 in 2017-06-28 Weight 290.2 lbs 2017-06-28 Heart Rate 84 bpm 2017-06-28 Respiratory Rate 20 2017-06-28 BMI 44.12 kg/m2 2017-06-28 Blood pressure systolic 124 mmHg 2017-06-28 Blood pressure diastolic 82 mmHg 2017-06-28 MEDICATIONS Medication Instructions Dosage Frequency Start Date End Date Duration Status Lisinopril 10 mg Orally Once a day 1 tablet 24h Mar, 30 day(s) Active Oxybutynin Chloride 5 mg Orally twice a day TAKE ONE TABLET BY MOUTH TWICE DAILY 12h 30 Active Atorvastatin Calcium 10 mg Orally Once a day 1 tablet 24h Feb, 30 days Active Topiramate 50 mg Orally twice a day TAKE THREE TABLETS BY MOUTH TWICE DAILY 12h 30 Active Abilify 10 mg Orally Once a day 1 tablet 24h Active Omeprazole 20 MG TAKE ONE CAPSULE BY MOUTH ONCE DAILY BEFORE A MEAL 30 Unknown Nuvigil 200 MG Orally Once a day 1 1/2 tablets 24h May, Not- Taking Propranolol HCl 20 mg Orally Twice a day TAKE ONE TABLET BY MOUTH TWICE DAILY 12h 30 Active Sumatriptan Succinate 100 mg Orally Once a day 1 tablet as needed 24h 30 days Not-Taking Tizanidine HCl 2 MG Orally every 8 hrs 1 tablet as needed 8h Jun, 30 days Active Glucocard Expression Monitor w/Device as directed November, Not-Taking Hydrocodone-Acetaminophen 7.5-325 MG Orally 3 times a day 1 tablet as needed 8h Jun, Not-Taking Metformin HCl 500 mg Orally twice a day TAKE ONE TABLET BY MOUTH TWICE DAILY WITH MEALS 12h 30 Active Glucocard Expression Test - In Vitro fasting and 2 hr after 1 meal 3 times weekly. test blood sugar November, Not-Taking Gabapentin 300 MG Orally 3 times a day 3 capsules 8h 30 days Active Topamax 50 mg Orally Twice a day 3 tablets 12h Active Naproxen 500 mg Orally 2 times a day 1 tablet 12h Not-Taking RESULTS No Results PROCEDURES Procedure Date Ordered Result Body Site [facility] VISIT ESTABLISHED PATIENT Jun 28, 2017 [facility] VISIT ESTABLISHED PATIENT Jun 28, 2017 INSTRUCTIONS MEDICATIONS ADMINISTERED No Known Medications [...] and UTI 02/2017 Hospitalization History [facility] [place]- UTI 11/23/2017
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
[2018-04-14] MEDS ORDERED: SULF1TAB35 PO (19:29)
[2018-04-14 20:05] VITALS: BP 118/76
== END 2018-04-14 20:08 | disposition home or self-care (01) ==
LOC: EDUNIT# 17:43 → ER 17:44
DX: N39.0 Urinary tract infection, site not specified (principal); G47.30 Sleep apnea, unspecified; J44.9 Chronic obstructive pulmonary disease, unspecified; E78.00 Pure hypercholesterolemia, unspecified; I10 Essential (primary) hypertension; G43.909 Migraine, unspecified, not intractable, without status migrainosus; K21.9 Gastro-esophageal reflux disease without esophagitis; E11.9 Type 2 diabetes mellitus without complications; F41.9 Anxiety disorder, unspecified; Z95.5 Presence of coronary angioplasty implant and graft; Z87.442 Personal history of urinary calculi; Z82.49 Family history of ischemic heart disease and other diseases of the circulatory system; Z88.0 Allergy status to penicillin; Z91.041 Radiographic dye allergy status; Z79.82 Long term (current) use of aspirin; Z79.51 Long term (current) use of inhaled steroids; Z79.84 Long term (current) use of oral hypoglycemic drugs; Z98.51 Tubal ligation status; Z90.6 Acquired absence of other parts of urinary tract
CPT/HCPCS: 36415; 80053; 81000; 85007; 85027; 87077; 87088; 87186

== ENCOUNTER 2018-05-03 14:21 | Emergency (ER) | payer MEDICARE, MEDICAID ==
[~2018-05-03] VITALS: Ht 165.1 cm; Wt 124.3 kg
[~2018-05-03 14:21] MED LIST changes: +SULF1TAB35 PO
[2018-05-03 15:21] LABS: BILIRUBIN,URINE NEGATIVE (NEGATIVE); CLARITY,URINE VERY CLOUDY; COLOR,URINE RED; GLUCOSE, URINE (UA) NEGATIVE (NEGATIVE); KETONES,URINE 1+ (NEGATIVE); LEUKOCYTE ESTERASE ,URINE 2+ (NEGATIVE); NITRITE,URINE POSITIVE (NEGATIVE); PH,URINE 6.5 (5-9); PROTEIN,URINE 3+ (NEGATIVE); UROBILINOGEN,URINE 1 MG/DL (NORMAL)
[2018-05-03 15:29] LABS: BACTERIA,URINE FEW /HPF; RBC,URINE TNTC /HPF
[2018-05-03] MEDS ORDERED: NS IV 1000 ML 1,000 ML IV SCH (15:45)
[2018-05-03 15:58] LABS: BASOPHILS % (AUTO) 0 % (0-10); EOSINOPHILS # (AUTO) 0.1 10^3/uL (0.0-0.3); EOSINOPHILS % (AUTO) 1 % (0-10); HEMATOCRIT 41 % (35-52); HEMOGLOBIN 13.7 G/DL (11.5-16.0); LYMPHOCYTES # (AUTO) 3.6 X 10^3 (1.0-4.0); LYMPHOCYTES % (AUTO) 29 % (12-44); MEAN CORPUSCULAR HEMOGLOBIN 27 PG (25-34); MEAN CORPUSCULAR HGB CONC 34 G/DL (32-36); MEAN CORPUSCULAR VOLUME 80 FL (80-99); MEAN PLATELET VOLUME 10.8 FL (7.4-10.4); MONOCYTES # (AUTO) 0.8 X 10^3 (0.0-1.0); MONOCYTES % (AUTO) 6 % (0-12); NEUTROPHILS # (AUTO) 7.9 X 10^3 (1.8-7.8); NEUTROPHILS % (AUTO) 63 % (42-75); PLATELET COUNT 374 10^3/uL (130-400); RED BLOOD COUNT 5.07 10^6/uL (4.35-5.85); RED CELL DISTRIBUTION WIDTH 15.7 % (10.0-14.5); WHITE BLOOD COUNT 12.5 10^3/uL (4.3-11.0)
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
[2018-05-03 16:24] LABS: ALANINE AMINOTRANSFERASE 19 U/L (0-55); ALBUMIN 4.1 GM/DL (3.2-4.5); ALKALINE PHOSPHATASE 87 U/L (40-136); BILIRUBIN,TOTAL 0.2 MG/DL (0.1-1.0); BUN/CREATININE RATIO 11; CALCIUM 9.4 MG/DL (8.5-10.1); CARBON DIOXIDE 19 MMOL/L (21-32); CHLORIDE 112 MMOL/L (98-107); CREATININE SERUM 0.98 MG/DL (0.60-1.30); GFR ESTIMATED > 60; GLUCOSE 144 MG/DL (70-105); POTASSIUM 3.4 MMOL/L (3.6-5.0); SODIUM 140 MMOL/L (135-145); TOTAL PROTEIN 7.4 GM/DL (6.4-8.2)
[2018-05-03] MEDS ORDERED: cefTRIAXone FOR IV USE 1,000 MG in NS (IVPB) 50 ML IV ONE (17:30)
[2018-05-03] MEDS ORDERED: SULF1TAB35 PO (18:24)
[2018-05-03 18:41] VITALS: BP 124/78
== END 2018-05-03 18:41 | disposition home or self-care (01) ==
LOC: EDUNIT# 14:21 → ER 14:23
DX: N39.0 Urinary tract infection, site not specified (principal); G47.30 Sleep apnea, unspecified; J44.9 Chronic obstructive pulmonary disease, unspecified; E78.00 Pure hypercholesterolemia, unspecified; I10 Essential (primary) hypertension; G43.909 Migraine, unspecified, not intractable, without status migrainosus; K21.9 Gastro-esophageal reflux disease without esophagitis; E11.9 Type 2 diabetes mellitus without complications; F41.9 Anxiety disorder, unspecified; Z88.0 Allergy status to penicillin; Z91.041 Radiographic dye allergy status; Z82.49 Family history of ischemic heart disease and other diseases of the circulatory system; Z79.82 Long term (current) use of aspirin; Z79.84 Long term (current) use of oral hypoglycemic drugs; Z87.442 Personal history of urinary calculi; Z87.448 Personal history of other diseases of urinary system; Z98.51 Tubal ligation status; Z90.6 Acquired absence of other parts of urinary tract
CPT/HCPCS: 36415; 80053; 81000; 85025; 87088; 96361; 96365

== ENCOUNTER → 2018-05-27 | Outpatient (CLI) | payer MEDICARE, MEDICAID ==
--- NOTE | 2018-05-27 12:35 | Diagnostic Imaging Report ---
PROCEDURE: US Thyroid. TECHNIQUE: Multiple real-time grayscale images were obtained of the thyroid in various projections. INDICATION: Multinodular goiter. COMPARISON: Comparison is made with prior thyroid ultrasound from 04/21/2017. FINDINGS: The right lobe of the thyroid measures 6.3 x 3.3 x 2.5 cm and the left lobe measures 5.8 x 2.0 x 2.1 cm. Multiple solid nodules are identified in both lobes of the thyroid. A nodule in the lower pole left lobe measures 11 mm x 7 mm x 9 mm, stable. An additional circumscribed hypoechoic nodule in the upper pole left lobe is seen measuring approximately 6 mm x 7 mm. This was not well-seen on prior exam. On the right, multiple solid masses are present. The largest is in the lower pole measuring 2.3 x 2.0 x 2.2 cm. This is slightly smaller than prior exam. The nodule in the upper pole measures 1.8 x 1.5 x 1.5 cm, slightly larger when compared with prior exam. IMPRESSION: Multinodular thyroid. Overall appearance is very similar to examination one year earlier. The dominant nodule in the lower pole of the right lobe measure slightly smaller. Nodule in the upper pole of the right lobe is measuring slightly larger. Continued followup is recommended. Dictated by: Dictated on workstation # [id number]
== END ==
LOC: RAD 11:23
PROVIDERS: ATTEND Family Medicine
DX: E04.2 Nontoxic multinodular goiter (principal)
CPT/HCPCS: 76536

== ENCOUNTER 2018-07-06 20:28 | Emergency (ER) | payer MEDICARE, MEDICAID ==
[~2018-07-06] VITALS: Ht 165.1 cm; Wt 127.0 kg
--- OUTSIDE RECORDS SUMMARY | 2018-07-06 21:18 | XMS REPORT ---
Author Author MEHDI OBINNA [facility] Address [address] [place] [address] Care Team Providers Care Critical Care Unit Manager Name Role Phone MEHDISHARON KRUSEHANY Unavailable PROBLEMS Type Condition ICD9-CM Code KNG92-CY Code Onset Dates Condition Status SNOMED Code Problem Essential hypertension I10 Active 41891721 Problem Recurrent major depressive disorder, in full remission F33.42 Active 317582050 Problem Anxiety F41.9 Active 54628096 Problem Chronic migraine without aura without status migrainosus, not intractable G43.709 Active 987302666 Problem Chronic obstructive pulmonary disease, unspecified COPD type J44.9 Active 88069439 Problem Mixed incontinence urge and stress N39.46 Active 040413765 Problem Obstructive sleep apnea syndrome G47.33 Active 35280294 Problem 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 Active 8534819661073071 Problem Proteinuria, unspecified R80.9 Active 50324970 Problem Type 2 diabetes mellitus with hyperglycemia, without long-term current use of insulin E11.65 Active 90481494 Problem Multinodular goiter E04.2 Active 643806717 Problem 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.29 Active 751864068 Problem Precordial pain R07.2 Active 64778097 Problem Lumbago with sciatica, unspecified side M54.40 Active 997129654 Problem CPAP (continuous positive airway pressure) dependence Z99.89 Active 759221913 Problem Primary osteoarthritis of left knee M17.12 Active 011586071086274 Problem Gastroesophageal reflux disease with esophagitis K21.0 Active 579131146 Problem Chronic fatigue R53.82 Active 59914770 Problem Other chronic pain G89.29 Active 95817146 Problem Hypercholesterolemia E78.00 Active 02209974 Problem Morbid obesity due to excess calories E66.01 Active 590822249 Problem Bipolar 1 disorder F31.9 Active 836971307 ALLERGIES No Information ENCOUNTERS Encounter Location Date Diagnosis [facility] [address] [address] Jul, [place] [id number] [address] Jun, [facility] [address], [place] [address] May, Multinodular goiter E04.2 [place] [id number] [place] [address] 38704- 9289 May, Microscopic hematuria R31.29 [place] [id number] [place] [address] 64807- 6175 May, Multinodular goiter E04.2 [place] [address] [address] Apr, [place] [id number] [place] [address] 16090- 6365 Apr, Acute cystitis with hematuria N30.01 ; Hypercholesterolemia E78.00 ; Essential hypertension I10 ; Type 2 diabetes mellitus with hyperglycemia, without long-term current use of insulin E11.65 ; Multinodular goiter E04.2 ; Other senior care (current) drug therapy Z79.899 and BMI 40.0-44.9 , adult Z68.41 [place] [address] [address] Apr, Type 2 diabetes mellitus with hyperglycemia, without long- term current use of insulin E11.65 [place] [address], [place] [address] Apr, Recurrent major depressive disorder, in full remission F33.42 ; Anxiety F41.9 and Other terminal worker (current) drug therapy Z79.899 [place] [address], [place] [address] Apr, [place] [address], [place] [address] Apr, Acute cystitis without hematuria N30.00 ; Encounter for immunization Z23 and BMI 40.0-44.9, adult Z68.41 [place] [id number] [place] [address] 94610- 8875 18 Mar, 2018 [place] [id number] [place] [address] 85090- 4478 10 Mar, 2018 [place] [address] [address] Feb, Type 2 diabetes mellitus with hyperglycemia, without long- term current use of insulin E11.65 ; Viral upper respiratory tract infection J06.9 ; Tobacco use Z72.0 ; BMI 40.0-44.9, adult Z68.41 and Food insecurity Z59.[address] [address] Jan, Recurrent major depressive disorder, in full remission F33.42 and Anxiety F41.9 [place] [id number] [place] [address] 80129- 2072 Jan, Recurrent major depressive disorder, in full remission F33.[address] [address]- [address] November, [place] [id number] [place] [address] 98947- 7989 November, Chronic migraine without aura without status migrainosus, not intractable G43.709 [place] [id number] [place] [address] 53530- 2307 November, Type 2 diabetes mellitus with hyperglycemia, without long- term current use of insulin E11.65 ; Dysuria R30.0 ; Acute cystitis without hematuria N30.00 ; Lumbago with sciatica, unspecified side M54.40 ; Other chronic pain G89.29 ; Chronic obstructive pulmonary disease, unspecified COPD type J44.9 ; Chest pain, unspecified type R07.9 ; Absent pedal pulses R09.89 and BMI 40.0-44.9, adult Z68.41 [place] [id number] [place] [address] 12752- 9201 Oct, Recurrent major depressive disorder, in full remission F33.42 and Anxiety F41.9 [place] [id number] [place] [address] 28583- 8469 Sep, Other chronic pain G89.29 [place] [id number] [place] [address] 73136- 3907 Aug, Other chronic pain G89.29 [place] [id number] [place] [address] 08133- 0561 Aug, Chronic obstructive pulmonary disease, unspecified COPD [...] goiter E04.2 and BMI 40.0-44.9, adult Z68.41 [place] [id number] [place] [address] 47947- 0848 Aug, [place] [id number] [place] [address] 09502- 7896 Jul, Type 2 diabetes mellitus with hyperglycemia, without long- term current use of insulin E11.65 [place] [id number] [place] [address] 78394- 7746 Jul, Type 2 diabetes mellitus with hyperglycemia, without long- term current use of insulin E11.65 [place] [id number] [place] [address] 04550- 7776 Jul, [address] [place] [address]- 4[address] Jul, Type 2 diabetes mellitus with hyperglycemia, [...] immunization Z23 and BMI 40.0-44.9, adult Z68.[address] [address]53- 1031 Jun, Migraine without status migrainosus, not intractable, unspecified migraine type G43.909 ; Hypercholesterolemia E78.00 and Lumbago with sciatica, unspecified side M54.40 [place] [address] 14985- 0693 Jun, Recurrent major depressive disorder, in full remission F33.42 and Anxiety F41.[address] 9[address]14- 5016 Jun, [place] [address] 6[address]21- 5491 May, Hypercholesterolemia E78.00 ; 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.29 ; Migraine without status migrainosus , not intractable, unspecified migraine type G43.909 and Lumbago with sciatica, unspecified side M54.40 [place] [address] 0[address]26- 9048 14 May, 2017 Multinodular goiter E04.2 [place] [address] 81168- 7671 06 May, 2017 [place] [address] 25241- 3605 Apr, Multinodular goiter E04.2 [place] [id number] [place] [address] 48893- 8292 Apr, Abnormal imaging of thyroid R94.6 ; Hypercholesterolemia E78.00 and 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.29 [place] [id number] [place] [address] 36228- 5911 Mar, Abnormal imaging of thyroid R94.6 [place] [id number] [place] [address] 89460- 9851 Mar, Chest wall mass R22.2 [place] [address] 39376- 5878 07 Mar, 2017 Type 2 diabetes mellitus with hyperglycemia, without long- term current use of insulin E11.65 ; Gastroesophageal reflux disease with esophagitis K21.0 ; Hypercholesterolemia E78.00 ; Proteinuria, unspecified R80.9 ; 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.29 ; Chest wall mass R22.2 and Precordial pain R07.2 [place] [id number] [place] [address] 88340- 1864 Feb, Recurrent major depressive disorder, in full remission F33.42 [place] [id number] [place] [address] 79898- 0535 Feb, Recurrent major depressive disorder, in full remission F33.42 and Anxiety F41.9 [place] [id number] [place] [address] 55988- 0813 Feb, [facility] [id number] [place] [address] [id number] Jan, Dental examination Z01.20 and Dental caries K02.9 [place] [id number] [place] [address] 88325- 0283 Dec, [place] [address] 76297- 2289 Dec, [place] [id number] [place] [address] 28847- 1210 Dec, Type 2 diabetes mellitus with hyperosmolarity [...] and Stress incontinence ( female) (male) N39.3 [facility] [id number] [place] [address] [id number] Dec, Dental caries K02.9 [place] [id number] [place] [address] 37052- 1186 November, [facility] [address] [address]- [address] November, Essential hypertension I10 ; Other chronic pain G89.29 ; Gastroesophageal reflux disease without esophagitis K21.9 and Anxiety F41.9 [facility] [id number] [place] [address] [id number] November, Dental examination Z01.20 [facility] [id number] [place] [address] 32944- 8364 Oct, Recurrent major depressive disorder, in full remission F33.42 [facility] [id number] [place] [address] 88037- 8295 Sep, Other chronic pain G89.29 [place] [address] 00143- 4045 Sep, Other chronic pain G89.29 and Bipolar 1 disorder F31.9 [facility] [id number] [place] [address] 45903- 9538 Aug, Other chronic pain G89.29 [place] [address], [place] [address]- 8472 Jul, Gastroesophageal reflux disease without esophagitis K21.9 [place] [id number] [place] [address] 65929- 8605 Jun, Migraine without status migrainosus, not intractable, unspecified migraine type G43.909 [place] [id number] [place] [address] 21859- 9006 Jun, Type 2 diabetes mellitus with hyperosmolarity [...] ; Essential hypertension I10 and Hypercholesterolemia E78.00 [place] [id number] [place] [address] 42071- 3353 May, [place] [id number] [place] [address] 04420- 4667 Apr, Edema, unspecified type R60.9 ; Type [...] Z23 and Stress incontinence (female) (male) N39.3 [place] [id number] [place] [address] 34003- 3702 Apr, [place] [id number] [place] [address] 66349- 4159 Mar, Headache above the eye region R51 ; Lumbago with sciatica, unspecified side M54.40 ; Edema, unspecified type R60.9 and Migraine without status migrainosus, not intractable, unspecified migraine type G43.909 [facility] [address] [place] [address] 05267- 4548 Mar, Chronic obstructive pulmonary disease, unspecified COPD type J44.9 ; Type 2 diabetes mellitus with hyperosmolarity without coma, without long-term current use of insulin E11.00 ; Other chronic pain G89.29 ; Migraine without status migrainosus, not intractable, unspecified migraine type G43.909 ; Left-sided chest wall pain R07.89 and Anxiety about health F41.8 [place] [id number] [place] [address] 32673- 5129 Mar, [place] [id number] [place] [address] 80581- 6233 Mar, [place] [id number] [place] [address] 09616- 6325 Mar, [place] [id number] [place] [address] 27823- 0444 Feb, [place] [id number] [place] [address] 05490- 4761 Feb, [place] [id number] [place] [address] 22174- 7006 Feb, Chronic fatigue R53.82 ; Lumbago with sciatica, unspecified side M54.40 ; Gastroesophageal reflux disease with esophagitis K21.0 ; Other chronic pain G89.29 ; Morbid obesity due to excess calories E66.01 ; Migraine without status migrainosus, not intractable, unspecified migraine type G43.909 and Edema, unspecified type R60.9 [facility] [address] [address] 10 Feb, 2016 Dental examination Z01.20 [facility] [address] Feb, [facility] [id number] [place] [address] 258114- 6736 Feb, Type 2 diabetes mellitus with hyperosmolarity without coma, without long-term current use of insulin E11.00 ; Chronic fatigue R53.82 ; Gastroesophageal reflux disease with esophagitis K21.0 ; Morbid obesity due to excess calories E66.01 ; Lumbago with sciatica, unspecified side M54.40 and Other chronic pain G89.29 [place] [address], [place] [address]- 6686 Feb, Type 2 diabetes mellitus with hyperosmolarity without coma, without long-term current use of insulin E11.00 ; Chronic fatigue R53.82 ; Gastroesophageal reflux disease with esophagitis K21.0 ; Morbid obesity due to excess calories E66.01 ; Lumbago with sciatica, unspecified side M54.40 and Other chronic pain G89.29 [facility] [id number] [place] [address] [id number] Feb, Dental examination Z01.20 [place] [id number] [place] [address] 68695- 3526 Jan, [place] [id number] [place] [address] 44688- 0156 Mar, [facility] [id number] [place] [address] [id number] Feb, Dental examination V72.2 [facility] [address] [address] Oct, [place] [id number] [place] [address] 00900- 8756 Oct, [facility] [id number] [place] [address] 675719- 3046 Aug, [facility] [id number] [place] [address] 419406- 3496 Aug, [facility] [place] [facility] [address] [id number] [place] [address]- 2415 Jul, [facility] [place] [facility] [address] [id number] [place] [address]- 0631 Jul, [facility] [place] [facility] [address] [id number] [place] [address]- 0918 Jun, [facility] [place] [facility] [address] [id number] [place] [address]- 4970 Jun, [facility] [place] [facility] [address] [id number] [place] [address]- 1070 Jun, [facility] [place] [facility] [address] [id number] [place] [address]- 6373 Jun, [facility] [place] [facility] [address] [id number] [place] [address]- 8634 Jun, [facility] [place] [facility] [address] [id number] [place] [address]- 2763 Jun, [facility] [place] [facility] [address] [id number] [place] [address]- 0010 Jun, [facility] [place] [facility] [address] [id number] [place] [address]- 8588 Jun, [facility] [place] [facility] [address] [id number] [place] [address]- 8819 Jun, [facility] [place] [facility] [address] [id number] [place] [address]- 1571 Jun, [facility] [place] [facility] [address] [id number] [place] [address]- 2559 Jun, [facility] [place] [facility] [address] [id number] [place]- 5442 Jun, [facility] [place] [facility] [address] [id number] [place] 7113 Jun, [facility] [place] [facility] [address] [id number] [place] [address]- 2169 May, [facility] [place] [facility] [address] [id number] [place] [address]- 4115 May, [facility] [place] [facility] [address] [id number] [place] [address]- 8194 May, [facility] [place] [facility] [address] [id number] [place] [address]- 5171 May, [facility] [place] [facility] [address] [id number] [place] [address]- 4740 Apr, [facility] [place] [facility] [address] [id number] [place] [address]- 8393 Apr, [facility] [place] [facility] [address] [id number] [place] [address]- 8184 Apr, [facility] [place] [facility] [address] [id number] [place] [address]- 5385 Apr, [facility] [place] [facility] [address] [id number] [place] [address]- 5786 Apr, [facility] [place] [facility] [address] [id number] [place] [address]- 7128 Apr, [facility] [place] [facility] [address] [id number] [place] [address]- 7149 Apr, [facility] [place] [facility] [address] [id number] [place] [address]- 9711 Apr, [facility] [place] [facility] [address] [id number], [place] [address]- 7635 Apr, [facility] [place] [facility] [address] [id number] [place] 3682 Apr, [facility] [place] [facility] [address] [id number] [place]- [address]52 16 Mar, 2014 [facility] [place] [facility] [address] [id number] [place] [address]- 0613 16 Mar, 2014 [facility] [place] [facility] [address] [facility] [id number] [address]- 8716 Feb, [facility] [address] [facility] [id number], [place] [address]- 1755 Feb, [facility] [address] [facility] [id number], [place] [address]- 2546 Feb, [facility] [address] [facility] [id number] [address] 2547 Feb, [facility] [address] [facility] [id number], [place] [address]- 6851 Jan, [facility] [address] [facility] [id number], [place] [address]- 3987 Jan, IMMUNIZATIONS No Known Immunizations SOCIAL HISTORY Never Assessed REASON FOR VISIT Refill Request PLAN OF CARE VITAL SIGNS MEDICATIONS Medication Instructions Dosage Frequency Start Date End Date Duration Status Tizanidine HCl 2MG Orally 3 times a day 1 tablet as needed 8h 90 days Active RESULTS No Results PROCEDURES No [...] and UTI 02/2017 Hospitalization History [facility] [place]- UTI 11/23/2017 [facility] 2017
--- OUTSIDE RECORDS SUMMARY | 2018-07-06 21:18 | XMS REPORT ---
Author Author MEHDI OBINNA [facility] Address [address] [place] [address] Care Team Providers Care Mattress Stripper Name Role Phone MEHDISHARON KRUSEHANY Unavailable PROBLEMS Type Condition ICD9-CM Code MJT28-HA Code Onset Dates Condition Status SNOMED Code Problem Essential hypertension I10 Active 78311026 Problem Recurrent major depressive disorder, in full remission F33.42 Active 822272368 Problem Anxiety F41.9 Active 19441872 Problem Chronic migraine without aura without status migrainosus, not intractable G43.709 Active 562366326 Problem Chronic obstructive pulmonary disease, unspecified COPD type J44.9 Active 88457960 Problem Mixed incontinence urge and stress N39.46 Active 654492620 Problem Obstructive sleep apnea syndrome G47.33 Active 03616093 Problem 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 Active [id number] Problem Proteinuria, unspecified R80.9 Active 52865357 Problem Type 2 diabetes mellitus with hyperglycemia, without long-term current use of insulin E11.65 Active 72587538 Problem Multinodular goiter E04.2 Active 990162521 Problem 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.29 Active 368629871 Problem Precordial pain R07.2 Active 76753661 Problem Lumbago with sciatica, unspecified side M54.40 Active 577390821 Problem CPAP (continuous positive airway pressure) dependence Z99.89 Active 850698701 Problem Primary osteoarthritis of left knee M17.12 Active 114452264867983 Problem Gastroesophageal reflux disease with esophagitis K21.0 Active 455379649 Problem Chronic fatigue R53.82 Active 85395964 Problem Other chronic pain G89.29 Active 77231008 Problem Hypercholesterolemia E78.00 Active 79518371 Problem Morbid obesity due to excess calories E66.01 Active 870020131 Problem Bipolar 1 disorder F31.9 Active 910560978 ALLERGIES No Information ENCOUNTERS Encounter Location Date Diagnosis [facility], [place] [address] [address] Jul, [facility] [place] [id number] [address] May, [facility], [place] [address], [place] [address] 6[address] May, Microscopic hematuria R31.29 [place] [id number] [place] [address] 95358- 0897 May, Multinodular goiter E04.2 [place] [address] [address] Apr, [place] [id number] [place] [address] 33572- 4004 Apr, Acute cystitis with hematuria N30.01 ; Hypercholesterolemia E78.00 ; Essential hypertension I10 ; Type 2 diabetes mellitus with hyperglycemia, without long-term current use of insulin E11.65 ; Multinodular goiter E04.2 ; Other snf (current) drug therapy Z79.899 and BMI 40.0-44.9 , adult Z68.41 [place] [id number] [place] [address] 19908- 6153 Apr, Type 2 diabetes mellitus with hyperglycemia, without long- term current use of insulin E11.65 [place] [address] [address] Apr, Recurrent major depressive disorder, in full remission F33.42 ; Anxiety F41.9 and Other terminal gauger (current) drug therapy Z79.899 [place] [address] [address] Apr, [place] [id number] [place] [address] 95334- 3408 Apr, Acute cystitis without hematuria N30.00 ; Encounter for immunization Z23 and BMI 40.0-44.9, adult Z68.41 [place] [id number] [place] [address] 84195- 9112 18 Mar, 2018 [place] [id number] [place] [address] 69338- 8009 Mar, [place] [id number] [place] [address] 81081- 8551 Feb, Type 2 diabetes mellitus with hyperglycemia, without long- term current use of insulin E11.65 ; Viral upper respiratory tract infection J06.9 ; Tobacco use Z72.0 ; BMI 40.0-44.9, adult Z68.41 and Food insecurity Z59.4 [place] [id number] [place] [address] 47478- 4230 Jan, Recurrent major depressive disorder, in full remission F33.42 and Anxiety F41.9 [place] [id number] [place] [address] 39856- 6669 Jan, Recurrent major depressive disorder, in full remission F33.42 [place] [id number] [place] [address] 87856- 0111 November, [place] [id number] [place] [address] 19212- 5470 November, Chronic migraine without aura without status migrainosus, not intractable G43.709 [place] [id number] [place] [address] 84301- 7367 November, Type 2 diabetes mellitus with hyperglycemia, without long- term current use of insulin E11.65 ; Dysuria R30.0 ; Acute cystitis without hematuria N30.00 ; Lumbago with sciatica, unspecified side M54.40 ; Other chronic pain G89.29 ; Chronic obstructive pulmonary disease, unspecified COPD type J44.9 ; Chest pain, unspecified type R07.9 ; Absent pedal pulses R09.89 and BMI 40.0-44.9, adult Z68.41 [place] [id number] [place] [address] 16462- 3281 Oct, Recurrent major depressive disorder, in full remission F33.42 and Anxiety F41.9 [place] [id number] [place] [address] 77275- 0900 Sep, Other chronic pain G89.29 [place] [id number] [place] [address] Aug, Other chronic pain G89.29 [place] [address] [address]- [address]012 Aug, Chronic obstructive pulmonary disease, unspecified COPD [...] goiter E04.2 and BMI 40.0-44.9, adult Z68.41 [place] [address] 48275- 0694 Aug, [place] [id number] [place] [address] 52100- 1921 Jul, Type 2 diabetes mellitus with hyperglycemia, without long- term current use of insulin E11.65 [place] [id number] [place] [address] 70422- 2290 Jul, Type 2 diabetes mellitus with hyperglycemia, without long- term current use of insulin E11.65 [place] [address] 60813- 2227 Jul, [place] [id number] [place] [address] 50438- 4770 Jul, Type 2 diabetes mellitus with hyperglycemia, [...] immunization Z23 and BMI 40.0-44.9, adult Z68.41 [place] [address] 96942- 3561 Jun, Migraine without status migrainosus, not intractable, unspecified migraine type G43.909 ; Hypercholesterolemia E78.00 and Lumbago with sciatica, unspecified side M54.40 [place] [address] 21869- 9524 Jun, Recurrent major depressive disorder, in full remission F33.42 and Anxiety F41.9 [place] [address] 78425- 9698 Jun, [place] [address] 30712- 2049 May, Hypercholesterolemia E78.00 ; 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.29 ; Migraine without status migrainosus , not intractable, unspecified migraine type G43.909 and Lumbago with sciatica, unspecified side M54.40 [place] [id number] [place] [address] 35982- 4985 14 May, 2017 Multinodular goiter E04.2 [place] [address] 92106- 8367 06 May, 2017 [place] [address] 94342- 8287 13 Apr, 2017 Multinodular goiter E04.2 [place] [address] 75478- 4300 Apr, Abnormal imaging of thyroid R94.6 ; Hypercholesterolemia E78.00 and 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.29 [place] [id number] [place] [address] 98289- 7751 29 Mar, 2017 Abnormal imaging of thyroid R94.6 [place] [id number] [place] [address] 91492- 2817 20 Mar, 2017 Chest wall mass R22.2 [place] [id number] [place] [address] 99393- 4615 07 Mar, 2017 Type 2 diabetes mellitus with hyperglycemia, without long- term current use of insulin E11.65 ; Gastroesophageal reflux disease with esophagitis K21.0 ; Hypercholesterolemia E78.00 ; Proteinuria, unspecified R80.9 ; 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.29 ; Chest wall mass R22.2 and Precordial pain R07.2 [place] [id number] [place] [address] 91897- 9084 Feb, Recurrent major depressive disorder, in full remission F33.42 [place] [id number] [place] [address] 40527- 8469 Feb, Recurrent major depressive disorder, in full remission F33.42 and Anxiety F41.9 [place] [id number] [place] [address] 29132- 5325 Feb, [facility] [id number] [place] [address] [phone] Jan, Dental examination Z01.20 and Dental caries K02.9 [place] [id number] [place] [address] 47839- 8553 Dec, [place] [address] 46462- 7967 Dec, [place] [id number] [place] [address] 89132- 7715 Dec, Type 2 diabetes mellitus with hyperosmolarity [...] and Stress incontinence ( female) (male) N39.3 [facility] [id number] [place] [address] [phone] Dec, Dental caries K02.9 [place] [address] 91043- 8091 November, [place] [address] 08428- 4294 November, Essential hypertension I10 ; Other chronic pain G89.29 ; Gastroesophageal reflux disease without esophagitis K21.9 and Anxiety F41.9 [facility] [id number] [place] [address] [phone] November, Dental examination Z01.20 [facility], [place] [address] 62167- 4173 Oct, Recurrent major depressive disorder, in full remission F33.42 [facility], [place] [address] 92987- 3171 Sep, Other chronic pain G89.29 [facility], [place] [id number] [place] [address] 50116- 7761 Sep, Other chronic pain G89.29 and Bipolar 1 disorder F31.9 [facility], [place] [address] 94607- 4270 Aug, Other chronic pain G89.29 [facility], [place] [address] 13674- 6269 Jul, Gastroesophageal reflux disease without esophagitis K21.9 [place] [id number] [place] [address] 87818- 5939 Jun, Migraine without status migrainosus, not intractable, unspecified migraine type G43.909 [place] [id number] [place] [address] 85635- 5590 Jun, Type 2 diabetes mellitus with hyperosmolarity [...] ; Essential hypertension I10 and Hypercholesterolemia E78.00 [place] [id number] [place] [address] 66226- 8237 May, [place] [id number] [place] [address] 00348- 2498 Apr, Edema, unspecified type R60.9 ; Type [...] Z23 and Stress incontinence (female) (male) N39.3 [place] [id number] [place] [address] 19053- 6866 Apr, [place] [id number] [place] [address] 97049- 7306 Mar, Headache above the eye region R51 ; Lumbago with sciatica, unspecified side M54.40 ; Edema, unspecified type R60.9 and Migraine without status migrainosus, not intractable, unspecified migraine type G43.909 [facility], [place] [id number] [place] [address] 32962- 9395 Mar, Chronic obstructive pulmonary disease, unspecified COPD type J44.9 ; Type 2 diabetes mellitus with hyperosmolarity without coma, without long-term current use of insulin E11.00 ; Other chronic pain G89.29 ; Migraine without status migrainosus, not intractable, unspecified migraine type G43.909 ; Left-sided chest wall pain R07.89 and Anxiety about health F41.8 [facility], [place] [id number] [place] [address] 70143- 2473 Mar, [facility], [place] [address] 85618- 5953 Mar, [facility], [place] [address] 35185- 7345 Mar, [facility], [place] [id number] [place] [address] 27253- 6927 Feb, [facility], [place] [address] 79980- 3735 Feb, [facility], [place] [id number] [place] [address] 57481- 7770 Feb, Chronic fatigue R53.82 ; Lumbago with sciatica, unspecified side M54.40 ; Gastroesophageal reflux disease with esophagitis K21.0 ; Other chronic pain G89.29 ; Morbid obesity due to excess calories E66.01 ; Migraine without status migrainosus, not intractable, unspecified migraine type G43.909 and Edema, unspecified type R60.9 [facility] [id number] [place] [address] [phone] Feb, Dental examination Z01.20 [facility], [place] [id number] [place] [address] 20322- 0579 Feb, [facility] [place] [address] [address]802 2546 Feb, Type 2 diabetes mellitus with hyperosmolarity without coma, without long-term current use of insulin E11.00 ; Chronic fatigue R53.82 ; Gastroesophageal reflux disease with esophagitis K21.0 ; Morbid obesity due to excess calories E66.01 ; Lumbago with sciatica, unspecified side M54.40 and Other chronic pain G89.29 [facility], [place] [id number] [place] [address] 26412- 1246 Feb, Type 2 diabetes mellitus with hyperosmolarity without coma, without long-term current use of insulin E11.00 ; Chronic fatigue R53.82 ; Gastroesophageal reflux disease with esophagitis K21.0 ; Morbid obesity due to excess calories E66.01 ; Lumbago with sciatica, unspecified side M54.40 and Other chronic pain G89.29 [facility] [address] [id number] Feb, Dental examination Z01.20 [facility], [place] [id number] [place] [address] 16072- 4486 Jan, [facility], [place] [id number] [place] [address] 94212- 9486 Mar, [facility] [id number] [place] [address] [phone] Feb, Dental examination V72.2 [facility], [place] [address] [address] 3567 Oct, [facility], [place] [id number] [place] [address] [id number]- 7356 Oct, [facility], [place] [id number] [place] [address] 29122- 1989 Aug, [facility], [place] [id number] [place] [address] 097113- 1566 Aug, [facility], [place] [id number] [place] [address] 93185- 4416 Jul, [facility] [place] [facility] [address] [id number] [place] [address]- 3353 Jul, [facility] [place] [facility] [address] [id number] [place] [address]- 8706 Jun, [facility] [place] [facility] [address] [id number] [place] [address]- 0456 Jun, [facility] [place] [facility] [address] [id number] [place] [address]- 6776 Jun, [facility] [place] [facility] [address] [id number] [place] [address]- 3044 Jun, [facility] [place] [facility] [address] [id number] [place] [address]- 0361 Jun, [facility] [place] [facility] [address] [id number] [place] [address]- 0085 Jun, [facility] [place] [facility] [address] [id number] [place] [address]- 4174 Jun, [facility] [place] [facility] [address] [id number] [place] [address]- 2333 Jun, [facility] [place] [facility] [address] [id number] [place] [address]- 7535 Jun, [facility] [place] [facility] [address] [id number] [place] [address]- 9270 Jun, [facility] [place] [facility] [address] [id number] [place] [address]- 8074 Jun, [facility] [place] [facility] [address] [id number] [place] [address]- 0686 Jun, [facility] [place] [facility] [address] [id number] [place] [address]- 9546 Jun, [facility] [place] [facility] [address] [id number] [place] [address]- 4185 May, [facility] [place] [facility] [address] [id number] [place] [address]- 8031 May, [facility] [place] [facility] [address] [id number] [place] 5627 May, [facility] [place] [facility] [address] [id number] [place] [address]- 3213 May, [facility] [place] [facility] [address] [id number] [place] 8567 Apr, [facility] [place] [facility] [address] [id number] [place] [address]- 0849 Apr, [facility] [place] [facility] [address] [id number] [place] [address]- 5747 Apr, [facility] [place] [facility] [address] [id number] [place] [address]- 7740 Apr, [facility] [place] [facility] [address] [id number] [place] [address]- 9260 Apr, [facility] [place] [facility] [address] [id number] [place] [address]- 7236 Apr, [facility] [place] [facility] [address] [id number] [place] [address]- 0625 Apr, [facility] [place] [facility] [address] [id number] [place] [address]- 1638 Apr, [facility] [place] [facility] [address] [id number] [address]- 1193 Apr, [facility] [place] [facility] [address] [id number], [place] [address]- 4926 Apr, [facility] [place] [facility] [address] [id number] [place] [address]- 8803 Mar, [facility] [place] [facility] [address] [id number] [place] [address]- 9551 16 Mar, 2014 [facility] [place] [facility] [address] [id number] [place] [address]- 0305 Feb, [facility] [place] [facility] [address] [facility] [id number] [place] [address]- 2546 Feb, [facility] [place] [address] [facility] [id number] [place] [address]- 0451 Feb, [facility] [place] [address] [facility] [id number] [address]- 4406 Feb, [facility] [place] [address] [facility] [id number], [place] [address]- 8396 Jan, [facility] [place] [address] [facility] [id number] [address]- 0861 Jan, IMMUNIZATIONS No Known Immunizations SOCIAL HISTORY Never Assessed REASON FOR VISIT Lab order PLAN OF CARE VITAL SIGNS MEDICATIONS [...] and UTI 02/2017 Hospitalization History [facility]- UTI 11/23/2017 [facility]I 2017
--- OUTSIDE RECORDS SUMMARY | 2018-07-06 21:18 | XMS REPORT ---
Author Author MEHDI OBINNA [facility] Address [address] [place] [address] Care Team Providers Care Agricultural Agent Name Role Phone MEHDISHARON KRUSEHANY Unavailable PROBLEMS Type Condition ICD9-CM Code RHZ42-JO Code Onset Dates Condition Status SNOMED Code Problem Essential hypertension I10 Active 78870046 Problem Recurrent major depressive disorder, in full remission F33.42 Active 985929771 Problem Anxiety F41.9 Active 97824122 Problem Chronic migraine without aura without status migrainosus, not intractable G43.709 Active 196186167 Problem Chronic obstructive pulmonary disease, unspecified COPD type J44.9 Active 33675287 Problem Mixed incontinence urge and stress N39.46 Active 177276702 Problem Obstructive sleep apnea syndrome G47.33 Active 53454940 Problem 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 Active 9028355315285985 Problem Proteinuria, unspecified R80.9 Active 76714034 Problem Type 2 diabetes mellitus with hyperglycemia, without long-term current use of insulin E11.65 Active 52835928 Problem Multinodular goiter E04.2 Active 761880636 Problem 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.29 Active 767313308 Problem Precordial pain R07.2 Active 12273576 Problem Lumbago with sciatica, unspecified side M54.40 Active 071408825 Problem CPAP (continuous positive airway pressure) dependence Z99.89 Active 850722697 Problem Primary osteoarthritis of left knee M17.12 Active 500174606389989 Problem Gastroesophageal reflux disease with esophagitis K21.0 Active 709302347 Problem Chronic fatigue R53.82 Active 65836468 Problem Other chronic pain G89.29 Active 33110916 Problem Hypercholesterolemia E78.00 Active 57872990 Problem Morbid obesity due to excess calories E66.01 Active 336721401 Problem Bipolar 1 disorder F31.9 Active 010974153 ALLERGIES No Information ENCOUNTERS Encounter Location Date Diagnosis [place] [address], [place] [address] Jul, [place] [id number] [address] May, [facility] [address], [place] [address] May, Multinodular goiter E04.2 [place] [address] [id number] [place] [address]46- 3618 May, Microscopic hematuria R31.29 [place] [address] [address] [id number] [place] [address] 71669- 7621 May, Multinodular goiter E04.2 [place] [id number] [place] [address] 92341- 0845 Apr, [place] [address] [address] [id number] [place] [address] 25303- 2818 Apr, Acute cystitis with hematuria N30.01 ; Hypercholesterolemia E78.00 ; Essential hypertension I10 ; Type 2 diabetes mellitus with hyperglycemia, without long-term current use of insulin E11.65 ; Multinodular goiter E04.2 ; Other detention (current) drug therapy Z79.899 and BMI 40.0-44.9 , adult Z68.41 [place] [address], [place] [address] Apr, Type 2 diabetes mellitus with hyperglycemia, without long- term current use of insulin E11.65 [place] [address], [place] [address] Apr, Recurrent major depressive disorder, in full remission F33.42 ; Anxiety F41.9 and 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 [place] [address], [place] [address] 74[address] Apr, [place] [address], [place] [address] Apr, Acute cystitis without hematuria N30.00 ; Encounter for immunization Z23 and BMI 40.0-44.9, adult Z68.41 [place] [address] [address] [id number] [place] [address] 02725- 6376 18 Mar, 2018 [place] [address] [address] [id number] [place] [address] 35752- 9640 10 Mar, 2018 [place] [address] [address] Feb, Type 2 diabetes mellitus with hyperglycemia, without long- term current use of insulin E11.65 ; Viral upper respiratory tract infection J06.9 ; Tobacco use Z72.0 ; BMI 40.0-44.9, adult Z68.41 and Food insecurity Z59.[address] [address]- [address] Jan, Recurrent major depressive disorder, in full remission F33.42 and Anxiety F41.9 [place] [id number] [place] [address] 90341- 7849 Jan, Recurrent major depressive disorder, in full remission F33.[address] [address]- [address] November, [place] [id number] [place] [address] 49772- 1306 November, Chronic migraine without aura without status migrainosus, not intractable G43.709 [place] [id number] [place] [address] 71121- 2474 November, Type 2 diabetes mellitus with hyperglycemia, without long- term current use of insulin E11.65 ; Dysuria R30.0 ; Acute cystitis without hematuria N30.00 ; Lumbago with sciatica, unspecified side M54.40 ; Other chronic pain G89.29 ; Chronic obstructive pulmonary disease, unspecified COPD type J44.9 ; Chest pain, unspecified type R07.9 ; Absent pedal pulses R09.89 and BMI 40.0-44.9, adult Z68.41 [place] [address] [place] [id number] [place] [address] 70861- 8955 Oct, Recurrent major depressive disorder, in full remission F33.42 and Anxiety F41.9 [place] [address] [address] [id number] [place] [address] 20500- 9351 Sep, Other chronic pain G89.29 [place] [address] [place] [id number] [place] [address] 67121- 2963 Aug, Other chronic pain G89.29 [place] [address] [address] [id number] [place] [address] 01304- 1849 Aug, Chronic obstructive pulmonary disease, unspecified COPD [...] goiter E04.2 and BMI 40.0-44.9, adult Z68.41 [place] [id number] [place] [address] 51400- 8272 Aug, [place] [address] [place] [address] [id number] [place] [address] 54218- 3808 Jul, Type 2 diabetes mellitus with hyperglycemia, without long- term current use of insulin E11.65 [place] [id number] [place] [address] 13093- 3982 Jul, Type 2 diabetes mellitus with hyperglycemia, without long- term current use of insulin E11.65 [place] [address] [place] [id number] [place] [address] 58149- 0931 Jul, [address] [place] [address]- 36[address] Jul, Type 2 diabetes mellitus with hyperglycemia, [...] immunization Z23 and BMI 40.0-44.9, adult Z68.[address] [address]- 0784 Jun, Migraine without status migrainosus, not intractable, unspecified migraine type G43.909 ; Hypercholesterolemia E78.00 and Lumbago with sciatica, unspecified side M54.40 [place] [address] 8[address]66- 6093 Jun, Recurrent major depressive disorder, in full remission F33.42 and Anxiety F41.[address] 04994- 9470 Jun, [place] [address] 90441- 5242 May, Hypercholesterolemia E78.00 ; 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.29 ; Migraine without status migrainosus , not intractable, unspecified migraine type G43.909 and Lumbago with sciatica, unspecified side M54.40 [place] [address] [address]- [address] 14 May, 2017 Multinodular goiter E04.2 [place] [address] 30345- 0865 06 May, 2017 [place] [address] 95993- 0508 Apr, Multinodular goiter E04.2 [place] [address] [address] [id number] [place] [address] 75825- 2364 Apr, Abnormal imaging of thyroid R94.6 ; Hypercholesterolemia E78.00 and 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.29 [place] [address] [place] [id number] [place] [address] 97778- 3236 Mar, Abnormal imaging of thyroid R94.6 [place] [address] [place] [id number] [place] [address] 32752- 4800 Mar, Chest wall mass R22.2 [place] [address] [address]- 7937 07 Mar, 2017 Type 2 diabetes mellitus with hyperglycemia, without long- term current use of insulin E11.65 ; Gastroesophageal reflux disease with esophagitis K21.0 ; Hypercholesterolemia E78.00 ; Proteinuria, unspecified R80.9 ; 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.29 ; Chest wall mass R22.2 and Precordial pain R07.2 [place] [address] [id number] [place] [address] 78160- 3628 Feb, Recurrent major depressive disorder, in full remission F33.42 [place] [address] [place] [id number] [place] [address] 89923- 8100 Feb, Recurrent major depressive disorder, in full remission F33.42 and Anxiety F41.9 [place] [address] [place] [id number] [place] [address] 90036- 2519 Feb, [facility] [address] [id number] [place] [address] [id number] Jan, Dental examination Z01.20 and Dental caries K02.9 [place] [address] [place] [address] [id number] [place] [address] 89218- 2942 Dec, [place] [address] 98784- 8230 Dec, [place] [address] [place] [id number] [place] [address] 99882- 5382 Dec, Type 2 diabetes mellitus with hyperosmolarity [...] female) (male) N39.3 [facility] [id number] [place] [address] [id number] Dec, Dental caries K02.9 [place] [address] [place] [id number] [place] [address] 48666- 0557 November, [facility] [address] [address]- 6313 November, Essential hypertension I10 ; Other chronic pain G89.29 ; Gastroesophageal reflux disease without esophagitis K21.9 and Anxiety F41.9 [facility] [address] [id number] [place] [address] [id number] November, Dental examination Z01.20 [facility] [address] [place] [id number] [place] [address] 16145- 3149 Oct, Recurrent major depressive disorder, in full remission F33.42 [facility] [address] [place] [id number] [place] [address] 96550- 4564 Sep, Other chronic pain G89.29 [place] [address] 95913- 2113 Sep, Other chronic pain G89.29 and Bipolar 1 disorder F31.9 [facility] [address] [address] [id number] [place] [address] 85571- 8709 Aug, Other chronic pain G89.29 [place] [address], [place] [address]- 9084 Jul, Gastroesophageal reflux disease without esophagitis K21.9 [place] [address] [place] [id number] [place] [address] 44235- 7597 Jun, Migraine without status migrainosus, not intractable, unspecified migraine type G43.909 [place] [address] [place] [id number] [place] [address] 02575- 4620 Jun, Type 2 diabetes mellitus with hyperosmolarity [...] hypertension I10 and Hypercholesterolemia E78.00 [place] [address] [place] [id number] [place] [address] 16438- 0466 May, [place] [address] [address] [id number] [place] [address] 11975- 1845 Apr, Edema, unspecified type R60.9 ; Type [...] Stress incontinence (female) (male) N39.3 [place] [address] [place] [id number] [place] [address] 83162- 4134 Apr, [place] [address] [place] [id number] [place] [address] 53089- 6560 Mar, Headache above the eye region R51 ; Lumbago with sciatica, unspecified side M54.40 ; Edema, unspecified type R60.9 and Migraine without status migrainosus, not intractable, unspecified migraine type G43.909 [facility] [address] [place] [address] 38523- 8166 Mar, Chronic obstructive pulmonary disease, unspecified COPD type J44.9 ; Type 2 diabetes mellitus with hyperosmolarity without coma, without long-term current use of insulin E11.00 ; Other chronic pain G89.29 ; Migraine without status migrainosus, not intractable, unspecified migraine type G43.909 ; Left-sided chest wall pain R07.89 and Anxiety about health F41.8 [place] [address] [place] [address] [id number] [place] [address] 34711- 2439 Mar, [place] [address] [place] [address] [id number] [place] [address] 43617- 3702 Mar, [place] [address] [address] [id number] [place] [address] 00972- 7423 Mar, [place] [address] [place] [id number] [place] [address] 09480- 9464 Feb, [place] [address] [place] [id number] [place] [address] 84336- 0930 Feb, [place] [address] [place] [id number] [place] [address] 14837- 9865 Feb, Chronic fatigue R53.82 ; Lumbago with sciatica, unspecified side M54.40 ; Gastroesophageal reflux disease with esophagitis K21.0 ; Other chronic pain G89.29 ; Morbid obesity due to excess calories E66.01 ; Migraine without status migrainosus, not intractable, unspecified migraine type G43.909 and Edema, unspecified type R60.9 [facility] [address] [id number] 10 Feb, 2016 Dental examination Z01.20 [facility] [address] [address] Feb, [facility] [address] [place] [id number] [place] [address] 472350- 1626 Feb, Type 2 diabetes mellitus with hyperosmolarity without coma, without long-term current use of insulin E11.00 ; Chronic fatigue R53.82 ; Gastroesophageal reflux disease with esophagitis K21.0 ; Morbid obesity due to excess calories E66.01 ; Lumbago with sciatica, unspecified side M54.40 and Other chronic pain G89.29 [place] [address], [place] [address]- 2906 Feb, Type 2 diabetes mellitus with hyperosmolarity without coma, without long-term current use of insulin E11.00 ; Chronic fatigue R53.82 ; Gastroesophageal reflux disease with esophagitis K21.0 ; Morbid obesity due to excess calories E66.01 ; Lumbago with sciatica, unspecified side M54.40 and Other chronic pain G89.29 [facility] [id number] [place] [address] [id number] Feb, Dental examination Z01.20 [place] [address] [place] [id number] [place] [address] 49153- 8796 Jan, [place] [address] [address] [id number] [place] [address] 38017- 5486 Mar, [facility] [address] [address] [id number] [place] [address] [id number] Feb, Dental examination V72.2 [facility] [address] [address] Oct, [place] [address] [address] [id number] [place] [address] 14971- 4056 Oct, [facility] [address] [place] [id number] [place] [address] 663432- 1256 Aug, [facility] [address] [id number] [place] [address] 120795- 4536 Aug, [facility] [place] [facility] [address] [id number] [place] [address]- 0098 Jul, [facility] [place] [facility] [address] [id number] [place] [address]- 7901 Jul, [facility] [place] [facility] [address] [id number] [place] [address]- 3304 Jun, [facility] [place] [facility] [address] [id number] [place] [address]- 4873 Jun, [facility] [place] [facility] [address] [id number] [place] [address]- 5517 Jun, [facility] [place] [facility] [address] [id number] [place] [address]- 5557 Jun, [facility] [place] [facility] [address] [id number] [place] [address]- 6569 Jun, [facility] [place] [facility] [address] [id number] [place] [address]- 6054 Jun, [facility] [place] [facility] [address] [id number] [place] [address]- 2113 Jun, [facility] [place] [facility] [address] [id number] [place] [address]- 0319 Jun, [facility] [place] [facility] [address] [id number] [place] [address]- 5611 Jun, [facility] [place] [facility] [address] [id number] [place] [address]- 6923 Jun, [facility] [place] [facility] [address] [id number] [place] [address]- 4327 Jun, [facility] [place] [facility] [address] [id number] [place] 5196 Jun, [facility] [place] [facility] [address] [id number] [place] 5053 Jun, [facility] [place] [facility] [address] [id number] [place] [address]- 2895 May, [facility] [place] [facility] [address] [id number] [place] [address]- 7940 May, [facility] [place] [facility] [address] [id number] [place] [address]- 2652 May, [facility] [place] [facility] [address] [id number] [place] [address]- 8642 May, [facility] [place] [facility] [address] [id number] [place] [address]- 0376 Apr, [facility] [place] [facility] [address] [id number] [place] [address]- 6151 Apr, [facility] [place] [facility] [address] [id number] [place] [address]- 1943 Apr, [facility] [place] [facility] [address] [id number] [place] [address]- 2158 Apr, [facility] [place] [facility] [address] [id number] [place] [address]- 5725 Apr, [facility] [place] [facility] [address] [id number] [place] [address]- 4019 Apr, [facility] [place] [facility] [address] [id number] [place] [address]- 4721 Apr, [facility] [place] [facility] [address] [id number] [place] [address]- 0567 Apr, [facility] [place] [facility] [address] [id number], [place] [address]- 1879 Apr, [facility] [place] [facility] [address] [id number] [place] 8774 Apr, [facility] [place] [facility] [address] [id number] [place] [address]26 16 Mar, 2014 [facility] [place] [facility] [address] [id number] [place] [address]- 3357 16 Mar, 2014 [facility] [place] [facility] [address] [facility] [id number] 9802 Feb, [facility] [address] [facility] [id number], [place] [address]- 5760 Feb, [facility] [address] [facility] [id number]- 4424 Feb, [facility] [address] [facility] [id number]- 6287 Feb, [facility] [address] [facility] [id number]- 9774 Jan, [facility] [address] [facility] [id number], [place] [address]- 8341 Jan, IMMUNIZATIONS No Known Immunizations SOCIAL HISTORY Never Assessed REASON FOR VISIT Thyroid Ultrasound PLAN OF CARE VITAL SIGNS MEDICATIONS Unknown [...] and UTI 02/2017 Hospitalization History [facility]- UTI 11/23/2017 [facility] 2017
--- OUTSIDE RECORDS SUMMARY | 2018-07-06 21:19 | XMS REPORT ---
Author Author MEHDI OBINNA [facility] Address [address] [place] [address] Care Team Providers Care Sales Floor Associate Name Role Phone MEHDISHARON KRUSEHANY Unavailable PROBLEMS Type Condition ICD9-CM Code OPP61-PK Code Onset Dates Condition Status SNOMED Code Problem Essential hypertension I10 Active 71845362 Problem Recurrent major depressive disorder, in full remission F33.42 Active 658900688 Problem Anxiety F41.9 Active 04722383 Problem Chronic migraine without aura without status migrainosus, not intractable G43.709 Active 262847774 Problem Chronic obstructive pulmonary disease, unspecified COPD type J44.9 Active 71615760 Problem Mixed incontinence urge and stress N39.46 Active 288671817 Problem Obstructive sleep apnea syndrome G47.33 Active 24008133 Problem 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 Active 2656904658642171 Problem Proteinuria, unspecified R80.9 Active 63043220 Problem Type 2 diabetes mellitus with hyperglycemia, without long-term current use of insulin E11.65 Active 90208927 Problem Multinodular goiter E04.2 Active 833844032 Problem 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.29 Active 750470625 Problem Precordial pain R07.2 Active 66765213 Problem Lumbago with sciatica, unspecified side M54.40 Active 228109961 Problem CPAP (continuous positive airway pressure) dependence Z99.89 Active 886010789 Problem Primary osteoarthritis of left knee M17.12 Active 780383604390216 Problem Gastroesophageal reflux disease with esophagitis K21.0 Active 012581175 Problem Chronic fatigue R53.82 Active 38009397 Problem Other chronic pain G89.29 Active 92382600 Problem Hypercholesterolemia E78.00 Active 63246702 Problem Morbid obesity due to excess calories E66.01 Active 943119378 Problem Bipolar 1 disorder F31.9 Active 192990540 ALLERGIES No Information ENCOUNTERS Encounter Location Date Diagnosis [place] [address] [address] Jul, [place] [address] [place] [id number] [place] [address] 57259- 9908 May, [place] [id number] [place] [address] 03306- 9876 May, Multinodular goiter E04.2 [place] [address] [place] [id number] [place] [address] 87104- 5113 Apr, [place] [id number] [place] [address] 59954- 8819 Apr, Acute cystitis with hematuria N30.01 ; Hypercholesterolemia E78.00 ; Essential hypertension I10 ; Type 2 diabetes mellitus with hyperglycemia, without long-term current use of insulin E11.65 ; Multinodular goiter E04.2 ; Other senior care (current) drug therapy Z79.899 and BMI 40.0-44.9 , adult Z68.41 [place] [id number] [place] [address] 71423- 9696 Apr, Type 2 diabetes mellitus with hyperglycemia, without long- term current use of insulin E11.65 [place] [id number] [place] [address] 37379- 8494 Apr, Recurrent major depressive disorder, in full remission F33.42 ; Anxiety F41.9 and Other intermediate manager (current) drug therapy Z79.899 [place] [address] [address] Apr, [place] [id number] [place] [address] 60091- 9931 Apr, Acute cystitis without hematuria N30.00 ; Encounter for immunization Z23 and BMI 40.0-44.9, adult Z68.41 [place] [address] [address] Mar, [place] [address] [place] [id number] [place] [address] 40333- 5253 Mar, [place] [address] [place] [id number] [place] [address] 44878- 5460 Feb, Type 2 diabetes mellitus with hyperglycemia, without long- term current use of insulin E11.65 ; Viral upper respiratory tract infection J06.9 ; Tobacco use Z72.0 ; BMI 40.0-44.9, adult Z68.41 and Food insecurity Z59.[address] [address]- [address] Jan, Recurrent major depressive disorder, in full remission F33.42 and Anxiety F41.[address] 72611- 0613 Jan, Recurrent major depressive disorder, in full remission F33.[address] 22961- 4802 November, [address] 70380- 1174 November, Chronic migraine without aura without status migrainosus, not intractable G43.709 [place] [id number] [place] [address] 36661- 0889 November, Type 2 diabetes mellitus with hyperglycemia, without long- term current use of insulin E11.65 ; Dysuria R30.0 ; Acute cystitis without hematuria N30.00 ; Lumbago with sciatica, unspecified side M54.40 ; Other chronic pain G89.29 ; Chronic obstructive pulmonary disease, unspecified COPD type J44.9 ; Chest pain, unspecified type R07.9 ; Absent pedal pulses R09.89 and BMI 40.0-44.9, adult Z68.41 [place] [id number] [place] [address] 32720- 2482 Oct, Recurrent major depressive disorder, in full remission F33.42 and Anxiety F41.9 [place] [id number] [place] [address] 90515- 8664 Sep, Other chronic pain G89.29 [place] [id number] [place] [address] 29211- 2350 Aug, Other chronic pain G89.29 [place] [address] [place] [id number] [place] [address] 11602- 3842 Aug, Chronic obstructive pulmonary disease, unspecified COPD [...] goiter E04.2 and BMI 40.0-44.9, adult Z68.41 [place] [id number] [place] [address] 19005- 9297 Aug, [place] [address] [place] [id number] [place] [address] 94559- 0196 Jul, Type 2 diabetes mellitus with hyperglycemia, without long- term current use of insulin E11.65 [place] [id number] [place] [address] 60310- 4794 Jul, Type 2 diabetes mellitus with hyperglycemia, without long- term current use of insulin E11.65 [place] [id number] [place] [address] 16984- 6470 Jul, [place] [address] [place] [id number] [place] [address] 16329- 2870 Jul, Type 2 diabetes mellitus with hyperglycemia, [...] immunization Z23 and BMI 40.0-44.9, adult Z68.[address] 74328- 2355 Jun, Migraine without status migrainosus, not intractable, unspecified migraine type G43.909 ; Hypercholesterolemia E78.00 and Lumbago with sciatica, unspecified side M54.40 [place] [address] 57002- 3735 Jun, Recurrent major depressive disorder, in full remission F33.42 and Anxiety F41.[address] 87084- 2403 Jun, [place] [address] 20008- 2742 May, Hypercholesterolemia E78.00 ; 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.29 ; Migraine without status migrainosus , not intractable, unspecified migraine type G43.909 and Lumbago with sciatica, unspecified side M54.40 [place] [address] [place] [id number] [place] [address] 02162- 8993 May, Multinodular goiter E04.2 [place] [address] 58219- 8480 May, [place] [address] 87672- 9090 Apr, Multinodular goiter E04.2 [place] [address] 47839- 5961 06 Apr, 2017 Abnormal imaging of thyroid R94.6 ; Hypercholesterolemia E78.00 and 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.29 [place] [address] [place] [id number] [place] [address] 15956- 3465 29 Mar, 2017 Abnormal imaging of thyroid R94.6 [place] [id number] [place] [address] 02692- 0309 20 Mar, 2017 Chest wall mass R22.2 [place] [address] 04874- 6606 07 Mar, 2017 Type 2 diabetes mellitus with hyperglycemia, without long- term current use of insulin E11.65 ; Gastroesophageal reflux disease with esophagitis K21.0 ; Hypercholesterolemia E78.00 ; Proteinuria, unspecified R80.9 ; 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.29 ; Chest wall mass R22.2 and Precordial pain R07.2 [place] [id number] [place] [address] 32962- 9391 Feb, Recurrent major depressive disorder, in full remission F33.[address] 67206- 3643 Feb, Recurrent major depressive disorder, in full remission F33.42 and Anxiety F41.[address] 89700- 2149 Feb, [facility] [id number] [place] [address] [id number] Jan, Dental examination Z01.20 and Dental caries K02.9 [place] [id number] [place] [address] 53794- 4892 Dec, [place] [id number] [place] [address] 49433- 6058 Dec, [address] 21182- 1075 Dec, Type 2 diabetes mellitus with hyperosmolarity [...] and Stress incontinence ( female) (male) N39.3 [facility] [address] [place] [id number] [place] [address] [id number] Dec, Dental caries K02.9 [facility] [id number] [place] [address] 75942- 9054 November, [facility] [address] 03503- 9498 November, Essential hypertension I10 ; Other chronic pain G89.29 ; Gastroesophageal reflux disease without esophagitis K21.9 and Anxiety F41.9 [facility] [address] [place] [address] [id number] [place] [address] [id number] November, Dental examination Z01.20 [facility] [address] [id number] [place] [address] 09777- 6662 Oct, Recurrent major depressive disorder, in full remission F33.42 [facility] [address] [place] [id number] [place] [address] 05043- 7136 Sep, Other chronic pain G89.29 [facility] [address] [address] [id number] [place] [address] 59998- 6476 Sep, Other chronic pain G89.29 and Bipolar 1 disorder F31.9 [facility] [id number] [place] [address] 99206- 5860 Aug, Other chronic pain G89.29 [facility] [address] [place] [id number] [place] [address] 11806- 4558 Jul, Gastroesophageal reflux disease without esophagitis K21.9 [facility] [address] [place] [address] [id number] [place] [address] 39377- 8032 Jun, Migraine without status migrainosus, not intractable, unspecified migraine type G43.909 [place] [address] [place] [id number] [place] [address] 61602- 6659 Jun, Type 2 diabetes mellitus with hyperosmolarity [...] ; Essential hypertension I10 and Hypercholesterolemia E78.00 [place] [address] [place] [id number] [place] [address] 67676- 1153 May, [address] 46615- 4610 Apr, Edema, unspecified type R60.9 ; Type [...] Z23 and Stress incontinence (female) (male) N39.3 [place] [address] [place] [id number] [place] [address] 34164- 2899 Apr, [place] [address] 30138- 8015 Mar, Headache above the eye region R51 ; Lumbago with sciatica, unspecified side M54.40 ; Edema, unspecified type R60.9 and Migraine without status migrainosus, not intractable, unspecified migraine type G43.909 [place] [address] [place] [address] 8004 Mar, Chronic obstructive pulmonary disease, unspecified COPD type J44.9 ; Type 2 diabetes mellitus with hyperosmolarity without coma, without long-term current use of insulin E11.00 ; Other chronic pain G89.29 ; Migraine without status migrainosus, not intractable, unspecified migraine type G43.909 ; Left-sided chest wall pain R07.89 and Anxiety about health F41.8 [facility] [address] [place] [address] [id number] [place] [address] 96336- 7830 Mar, [facility] [address] [place] [address] [id number] [place] [address] 42382- 6178 Mar, [facility] [address] [place] [id number] [place] [address] 72372- 6214 Mar, [place] [address] [place] [id number] [place] [address] 13439- 1192 Feb, [place] [address] [place] [id number] [place] [address] 65192- 7558 Feb, [facility] [address] [place] [id number] [place] [address] 86747- 9537 Feb, Chronic fatigue R53.82 ; Lumbago with sciatica, unspecified side M54.40 ; Gastroesophageal reflux disease with esophagitis K21.0 ; Other chronic pain G89.29 ; Morbid obesity due to excess calories E66.01 ; Migraine without status migrainosus, not intractable, unspecified migraine type G43.909 and Edema, unspecified type R60.9 [facility] [address] [place] [address] [id number] Feb, Dental examination Z01.20 [facility] [address] [place] [id number] [place] [address] 63952- 3362 Feb, [place] [address] [place] [id number] [place] [address] 75119- 2876 Feb, Type 2 diabetes mellitus with hyperosmolarity without coma, without long-term current use of insulin E11.00 ; Chronic fatigue R53.82 ; Gastroesophageal reflux disease with esophagitis K21.0 ; Morbid obesity due to excess calories E66.01 ; Lumbago with sciatica, unspecified side M54.40 and Other chronic pain G89.29 [facility] [address] [id number] [place] [address] 542153- 5546 Feb, Type 2 diabetes mellitus with hyperosmolarity without coma, without long-term current use of insulin E11.00 ; Chronic fatigue R53.82 ; Gastroesophageal reflux disease with esophagitis K21.0 ; Morbid obesity due to excess calories E66.01 ; Lumbago with sciatica, unspecified side M54.40 and Other chronic pain G89.29 [facility] [address] [place] [address] [id number] [place] [address] [id number] Feb, Dental examination Z01.20 [facility] [address] [place] [id number] [place] [address] 24044435- 9876 Jan, [facility] [address] [place] [id number] [place] [address] [id number]- 3416 Mar, [facility] [address] [place] [address] [id number] [place] [address] [id number] Feb, Dental examination V72.2 [facility] [id number] [place] [address] [id number]- 3266 Oct, [facility] [address] [address]- 3978 Oct, [facility] [address] [id number] [place] [address] 174356- 7436 Aug, [facility] [id number] [place] [address] 257815- 8336 Aug, [facility] [address] [id number] [place] [address] 72865- 8036 Jul, [facility] [id number] [place] [address] 863319- 3836 Jul, [facility] [address] [place] [id number] [place] [address]- 8263 30 Jun, 2014 [facility] [address] [id number] [place] [address]- 5486 30 Jun, 2014 [facility] [place] [facility] [address] [id number] [place] [address]- 0286 Jun, [facility] [address] [id number] [place] [address]- 3446 Jun, [facility] [place] [facility] [address] [id number] [place] [address]- 4188 Jun, [facility] [address] [id number] [place] [address]- 9912 Jun, [facility] [place] [facility] [address] [id number] [place] [address]- 9065 Jun, [facility] [address] [id number] [place] [address]- 5304 Jun, [facility] [address] [id number] [place] [address]- 5334 16 Jun, 2014 [facility] [place] [facility] [address] [id number] [place] [address]- 4399 Jun, [facility] [address] [id number] [place] [address]- 3095 Jun, [facility] [place] [facility] [address] [id number] [place] [address]- 0060 Jun, [facility] [place] [facility] [address] [id number] [place] 4260 Jun, [facility] [place] [facility] [address] [id number] [place] [address]- 0550 May, [facility] [place] [facility] [address] [id number] [place] [address]- 2434 May, [facility] [place] [facility] [address] [id number] [place] [address]- 3873 May, [facility] [place] [facility] [address] [id number] [place] [address]- 9521 May, [facility] [place] [facility] [address] [id number] [place] [address]- 7811 Apr, [facility] [place] [facility] [address] [id number] [place] [address]- 0573 Apr, [facility] [place] [facility] [address] [id number] [place] [address]- 5065 Apr, [facility] [place] [facility] [address] [id number] [place] 7959 Apr, [facility] [place] [facility] [address] [id number] [place] [address]- 4456 Apr, [facility] [place] [facility] [address] [id number] [place] [address]- 1643 Apr, [facility] [place] [facility] [address] [id number] [place] [address]- 7577 Apr, [facility] [place] [facility] [address] [id number] [place] [address]- 5026 Apr, [facility] [place] [facility] [address] [id number] [place] [address]- 5495 Apr, [facility] [place] [facility] [address] [id number] [place] [address]- 6454 Apr, [facility] [place] [facility] [address] [id number] [address]- 5492 Mar, [facility] [place] [facility] [address] [id number] [place] 3646 Mar, [facility] [place] [facility] [address] [id number] [place] [address]- 2353 Feb, [facility] [place] [facility] [address] [id number] [place] [address]- 5570 Feb, [facility] [place] [facility] [address] [id number], [place] [address]- 2546 Feb, [facility] [address] [facility] [id number] [place] [address]- 2546 Feb, [facility] [address] [facility] [id number] [address]- 2546 Jan, [facility] [address] [facility] [id number] [place] [address]- 8026 Jan, IMMUNIZATIONS No Known Immunizations SOCIAL HISTORY Never Assessed REASON FOR VISIT Thyroid Ultrasound PLAN OF CARE Activity Details Pending Test Ultrasound : Thyroid VITAL SIGNS MEDICATIONS Unknown Medications RESULTS No [...] Hospitalization History psychiatric stay s/p overdose in [place] in 2006 Hospitalization History chest pain and UTI 02/2017 Hospitalization History [facility] [place]- UTI 11/23/2017 [facility]I 2017
--- OUTSIDE RECORDS SUMMARY | 2018-07-06 21:19 | XMS REPORT ---
Author Author MEHDI OBINNA [facility] Address [address] [place] [address] Care Team Providers Care Senior Etl Developer Name Role Phone MEHDISHARON KRUSEHANY Unavailable PROBLEMS Type Condition ICD9-CM Code REK11-HF Code Onset Dates Condition Status SNOMED Code Problem Essential hypertension I10 Active 71954592 Problem Recurrent major depressive disorder, in full remission F33.42 Active 081649439 Problem Anxiety F41.9 Active 81017544 Problem Chronic migraine without aura without status migrainosus, not intractable G43.709 Active 941299221 Problem Chronic obstructive pulmonary disease, unspecified COPD type J44.9 Active 96561512 Problem Mixed incontinence urge and stress N39.46 Active 618670060 Problem Obstructive sleep apnea syndrome G47.33 Active 34086182 Problem 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 Active 7040126320699151 Problem Proteinuria, unspecified R80.9 Active 49036074 Problem Type 2 diabetes mellitus with hyperglycemia, without long-term current use of insulin E11.65 Active 84310022 Problem Multinodular goiter E04.2 Active 027835822 Problem 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.29 Active 894648987 Problem Precordial pain R07.2 Active 65809343 Problem Lumbago with sciatica, unspecified side M54.40 Active 572312589 Problem CPAP (continuous positive airway pressure) dependence Z99.89 Active 489857061 Problem Primary osteoarthritis of left knee M17.12 Active 874398158738793 Problem Gastroesophageal reflux disease with esophagitis K21.0 Active 965221595 Problem Chronic fatigue R53.82 Active 32911373 Problem Other chronic pain G89.29 Active 42467456 Problem Hypercholesterolemia E78.00 Active 03986643 Problem Morbid obesity due to excess calories E66.01 Active 022002702 Problem Bipolar 1 disorder F31.9 Active 988821264 ALLERGIES No Information ENCOUNTERS Encounter Location Date Diagnosis [facility] [address] [address] Jul, [place] [id number] [address] May, [facility] [address], [place] [address] Apr, [place] [id number] [place] [address] Apr, [place] [address] [place] [address]75- 2761 Apr, Acute cystitis with hematuria N30.01 ; Hypercholesterolemia E78.00 ; Essential hypertension I10 ; Type 2 diabetes mellitus with hyperglycemia, without long-term current use of insulin E11.65 ; Multinodular goiter E04.2 ; Other skilled nursing (current) drug therapy Z79.899 and BMI 40.0-44.9 , adult Z68.41 [place] [address] [place] [address]66- 5761 Apr, Type 2 diabetes mellitus with hyperglycemia, without long- term current use of insulin E11.65 [place] [address] [place] [address] 35240- 7153 Apr, Recurrent major depressive disorder, in full remission F33.42 ; Anxiety F41.9 and Other long term care phlebotomist (current) drug therapy Z79.899 [place] [address] [address] Apr, [place] [address] [place] [address] 82964- 9019 Apr, Acute cystitis without hematuria N30.00 ; Encounter for immunization Z23 and BMI 40.0-44.9, adult Z68.41 [place] [address], [place] [address] 18 Mar, 2018 [place] [id number] [place] [address] 88426- 6815 Mar, [place] [id number] [place] [address] 14063- 3311 Feb, Type 2 diabetes mellitus with hyperglycemia, without long- term current use of insulin E11.65 ; Viral upper respiratory tract infection J06.9 ; Tobacco use Z72.0 ; BMI 40.0-44.9, adult Z68.41 and Food insecurity Z59.4 [place] [address] [address] Jan, Recurrent major depressive disorder, in full remission F33.42 and Anxiety F41.[address] [address]- [address] Jan, Recurrent major depressive disorder, in full remission F33.42 [place] [address] [address]- [address] November, [address] [address]- [address] November, Chronic migraine without aura without status migrainosus, not intractable G43.[address] [address]- [address]487 November, Type 2 diabetes mellitus with hyperglycemia, without long- term current use of insulin E11.65 ; Dysuria R30.0 ; Acute cystitis without hematuria N30.00 ; Lumbago with sciatica, unspecified side M54.40 ; Other chronic pain G89.29 ; Chronic obstructive pulmonary disease, unspecified COPD type J44.9 ; Chest pain, unspecified type R07.9 ; Absent pedal pulses R09.89 and BMI 40.0-44.9, adult Z68.[address] [address]- [address] Oct, Recurrent major depressive disorder, in full remission F33.42 and Anxiety F41.[address] [address]- 8[address] Sep, Other chronic pain G89.29 [place] [address] [place] [address] 95252- [address] 2017 Other chronic pain G89.29 [place] [id number] [place] [address] 11099- 3769 09 Aug, 2017 Chronic obstructive pulmonary disease, [...] goiter E04.2 and BMI 40.0-44.9, adult Z68.41 [place] [id number] [place] [address] 91363- 1884 Aug, [place] [id number] [place] [address] 1[address]- 35[address] Jul, Type 2 diabetes mellitus with hyperglycemia, without long- term current use of insulin E11.65 [place] [id number] [place] [address] 34608- 8913 Jul, Type 2 diabetes mellitus with hyperglycemia, without long- term current use of insulin E11.65 [place] [id number] [place] [address] 18837- 0384 Jul, [place] [address] [address]- [address] Jul, Type 2 diabetes mellitus with hyperglycemia, [...] immunization Z23 and BMI 40.0-44.9, adult Z68.[address] [address]- 3597 Jun, Migraine without status migrainosus, not intractable, unspecified migraine type G43.909 ; Hypercholesterolemia E78.00 and Lumbago with sciatica, unspecified side M54.40 [place] [address] [address]- [address] Jun, Recurrent major depressive disorder, in full remission F33.42 and Anxiety F41.9 [place] [address] [address]- 1665 Jun, [place] [address] [address]- [address]68 May, Hypercholesterolemia E78.00 ; 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.29 ; Migraine without status migrainosus , not intractable, unspecified migraine type G43.909 and Lumbago with sciatica, unspecified side M54.40 [place] [id number] [place] [address] 64767- 6017 May, Multinodular goiter E04.2 [place] [address] [address]- [address] May, [place] [address] [address]- [address]24 Apr, Multinodular goiter E04.2 [place] [address] [address]- 4479 Apr, Abnormal imaging of thyroid R94.6 ; Hypercholesterolemia E78.00 and 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.29 [place] [address] [place] [address] 29 Mar, 2017 Abnormal imaging of thyroid R94.6 [place] [address] [address]- 1347 Mar, Chest wall mass R22.2 [place] [address] 8[address]- [address] 07 Mar, 2017 Type 2 diabetes mellitus with hyperglycemia, without long- term current use of insulin E11.65 ; Gastroesophageal reflux disease with esophagitis K21.0 ; Hypercholesterolemia E78.00 ; Proteinuria, unspecified R80.9 ; 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.29 ; Chest wall mass R22.2 and Precordial pain R07.2 [place] [address] [address]- [address]13 Feb, Recurrent major depressive disorder, in full remission F33.42 [place] [address] [address]- 6[address] Feb, Recurrent major depressive disorder, in full remission F33.42 and Anxiety F41.9 [place] [address] [address]- 2712 Feb, [facility] [address] [id number] Jan, Dental examination Z01.20 and Dental caries K02.9 [place] [address] [address]- [address]159 Dec, [place] [address] [address]- 48[address] Dec, [place] [address] 10627- 8543 Dec, Type 2 diabetes mellitus with hyperosmolarity [...] incontinence ( female) (male) N39.3 [facility] [address] [place] [address] [id number] Dec, Dental caries K02.9 [facility] [address] [address]- [address]7 November, [facility] [address] 25[address]- 6207 November, Essential hypertension I10 ; Other chronic pain G89.29 ; Gastroesophageal reflux disease without esophagitis K21.9 and Anxiety F41.9 [facility] [address] [id number] November, Dental examination Z01.20 [facility] [id number] [place] [address] 66649- 0535 Oct, Recurrent major depressive disorder, in full remission F33.42 [facility] [id number] [place] [address] 26871- 7433 Sep, Other chronic pain G89.29 [facility] [id number] [place] [address] 52206- 5891 Sep, Other chronic pain G89.29 and Bipolar 1 disorder F31.9 [facility] [id number] [place] [address] 92567- 2288 Aug, Other chronic pain G89.29 [facility] [id number] [place] [address] 91046- 4720 Jul, Gastroesophageal reflux disease without esophagitis K21.9 [facility] [id number] [place] [address] 73551- 0233 Jun, Migraine without status migrainosus, not intractable, unspecified migraine type G43.909 [place] [id number] [place] [address] 11314- 2035 Jun, Type 2 diabetes mellitus with hyperosmolarity [...] ; Essential hypertension I10 and Hypercholesterolemia E78.[address] 8[address]- 2160 May, [place] [address] 11536- 0196 Apr, Edema, unspecified type R60.9 ; Type [...] Z23 and Stress incontinence (female) (male) N39.3 [place] [id number] [place] [address] 33935- 0033 Apr, [place] [id number] [place] [address] 18201- 1265 Mar, Headache above the eye region R51 ; Lumbago with sciatica, unspecified side M54.40 ; Edema, unspecified type R60.9 and Migraine without status migrainosus, not intractable, unspecified migraine type G43.909 [place] [address] 5[address]- 3941 Mar, Chronic obstructive pulmonary disease, unspecified COPD type J44.9 ; Type 2 diabetes mellitus with hyperosmolarity without coma, without long-term current use of insulin E11.00 ; Other chronic pain G89.29 ; Migraine without status migrainosus, not intractable, unspecified migraine type G43.909 ; Left-sided chest wall pain R07.89 and Anxiety about health F41.8 [facility] [id number] [place] [address] 93843- 7587 Mar, [facility] [id number] [place] [address] 27961- 2926 Mar, [facility] [id number] [place] [address] 23791- 9643 Mar, [facility] [id number] [place] [address] 45692- 7901 Feb, [place] [id number] [place] [address] 55104- 0759 Feb, [place] [id number] [place] [address] 23896- 0962 Feb, Chronic fatigue R53.82 ; Lumbago with sciatica, unspecified side M54.40 ; Gastroesophageal reflux disease with esophagitis K21.0 ; Other chronic pain G89.29 ; Morbid obesity due to excess calories E66.01 ; Migraine without status migrainosus, not intractable, unspecified migraine type G43.909 and Edema, unspecified type R60.9 [facility] [address] [place] [address] [id number] Feb, Dental examination Z01.20 [place] [id number] [place] [address] 66725- 0831 Feb, [place] [id number] [place] [address] 48403- 0510 Feb, Type 2 diabetes mellitus with hyperosmolarity without coma, without long-term current use of insulin E11.00 ; Chronic fatigue R53.82 ; Gastroesophageal reflux disease with esophagitis K21.0 ; Morbid obesity due to excess calories E66.01 ; Lumbago with sciatica, unspecified side M54.40 and Other chronic pain G89.29 [facility] [id number] [place] [address] 852616- 0951 Feb, Type 2 diabetes mellitus with hyperosmolarity without coma, without long-term current use of insulin E11.00 ; Chronic fatigue R53.82 ; Gastroesophageal reflux disease with esophagitis K21.0 ; Morbid obesity due to excess calories E66.01 ; Lumbago with sciatica, unspecified side M54.40 and Other chronic pain G89.29 [facility] [id number] [place] [address] [id number] Feb, Dental examination Z01.20 [facility] [id number] [place] [address] 69379- 3429 Jan, [facility] [address] 7[address]70- 0967 Mar, [facility] [id number] [place] [address] [id number] Feb, Dental examination V72.2 [facility] [id number] [place] [address] 90977- 2436 Oct, [facility] [id number] [place] [address] 06827- 9628 Oct, [facility] [id number] [place] [address] 08739- 7503 Aug, [facility] [id number] [place] [address] [id number]- 0915 Aug, [facility] [address] 262234- 0846 Jul, [facility] [id number] [place] [address] 430408- 1131 Jul, [facility] [address] 16701- 1344 Jun, [facility] [place] [facility] [address] [id number] [place] [address]- 0767 Jun, [facility] [place] [facility] [address] [id number] [place] 6[address] Jun, [facility] [place] [facility] [address] [id number] [place] [address]- 3064 Jun, [facility] [place] [facility] [address] [id number] [place] [address]- 8987 Jun, [facility] [place] [facility] [address] [id number] [place] [address]- 3034 Jun, [facility] [place] [facility] [address] [id number] [place] [address]- 7032 Jun, [facility] [place] [facility] [address] [id number] [place] [address]- 5092 Jun, [facility] [place] [facility] [address] [id number] [place] [address]- 3012 Jun, [facility] [place] [facility] [address] [id number] [place] [address]- 1596 Jun, [facility] [place] [facility] [address] [id number] [place] [address]- 2472 Jun, [facility] [place] [facility] [address] [id number] [place] [address]- 8637 Jun, [facility] [place] [facility] [address] [id number] [place] [address]- 2827 Jun, [facility] [place] [facility] [address] [id number] [place] [address] May, [facility] [place] [facility] [address] [id number] [place] [address]- 7133 May, [facility] [place] [facility] [address] [id number] [place] [address]13 May, [facility] [place] [facility] [address] [id number] [place] [address]- 4315 May, [facility] [place] [facility] [address] [id number] [place] [address]- 0858 Apr, [facility] [place] [facility] [address] [id number] [place] [address]- 7388 Apr, [facility] [place] [facility] [address] [id number] [place] [address]- 6619 Apr, [facility] [place] [facility] [address] [id number] [place] [address]- 9434 Apr, [facility] [place] [facility] [address] [id number] [place] [address]- 0054 Apr, [facility] [place] [facility] [address] [id number] [place] [address]- 3087 Apr, [facility] [place] [facility] [address] [id number] [place] [address]- 3771 Apr, [facility] [place] [facility] [address] [id number] [place] [address]- 8425 Apr, [facility] [place] [facility] [address] [id number] [place] [address]- 0121 Apr, [facility] [place] [facility] [address] [id number] [place] [address]- 5719 Apr, [facility] [place] [facility] [address] [id number] [place] [address]- 3299 Mar, [facility] [place] [facility] [address] [id number] [place] [address]- 4034 Mar, [facility] [place] [facility] [address] [id number] [place] [address]- 2701 Feb, [facility] [place] [facility] [address] [id number] [place] [address]- 0890 Feb, [facility] [place] [facility] [address] [id number] [place] [address]- 0481 Feb, [facility] [address] [id number] [place] [address]- 0196 Feb, [facility] [address] [id number] [place] [address]- 2546 Jan, [facility] [address] [id number] [place] [address]- 7686 Jan, IMMUNIZATIONS No Known Immunizations SOCIAL HISTORY Never Assessed REASON FOR VISIT Medication refill request PLAN OF CARE VITAL SIGNS MEDICATIONS Medication Instructions Dosage Frequency Start Date End Date Duration Status Topiramate 50MG TAKE THREE TABLETS BY MOUTH TWICE DAILY Active RESULTS No Results PROCEDURES No Known [...] and UTI 02/2017 Hospitalization History [facility] [place]- UTI 11/23/2017 [facility] 2017
--- OUTSIDE RECORDS SUMMARY | 2018-07-06 21:20 | XMS REPORT ---
Author Author MEHDI OBINNA [facility] Address [address] [place] [address] Care Team Providers Care Clinical Psychologist Licensed Name Role Phone MEHDISHARON KRUSEHANY Unavailable PROBLEMS Type Condition ICD9-CM Code LQZ35-PF Code Onset Dates Condition Status SNOMED Code Problem Essential hypertension I10 Active 51028065 Problem Recurrent major depressive disorder, in full remission F33.42 Active 427909309 Problem Anxiety F41.9 Active 58845241 Problem Chronic migraine without aura without status migrainosus, not intractable G43.709 Active 662310144 Problem Chronic obstructive pulmonary disease, unspecified COPD type J44.9 Active 51307028 Problem Mixed incontinence urge and stress N39.46 Active 685724901 Problem Obstructive sleep apnea syndrome G47.33 Active 40910231 Problem 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 Active 6993623240226614 Problem Proteinuria, unspecified R80.9 Active 48610602 Problem Type 2 diabetes mellitus with hyperglycemia, without long-term current use of insulin E11.65 Active 85765799 Problem Multinodular goiter E04.2 Active 344769374 Problem 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.29 Active 741503302 Problem Precordial pain R07.2 Active 38258288 Problem Lumbago with sciatica, unspecified side M54.40 Active 943693222 Problem CPAP (continuous positive airway pressure) dependence Z99.89 Active 933146560 Problem Primary osteoarthritis of left knee M17.12 Active 853738367522100 Problem Gastroesophageal reflux disease with esophagitis K21.0 Active 919110348 Problem Chronic fatigue R53.82 Active 64748369 Problem Other chronic pain G89.29 Active 75638263 Problem Hypercholesterolemia E78.00 Active 64554134 Problem Morbid obesity due to excess calories E66.01 Active 887383834 Problem Bipolar 1 disorder F31.9 Active 022093753 ALLERGIES No Information ENCOUNTERS Encounter Location Date Diagnosis [facility] [address] [address] Jul, [facility] [address] [place] [id number] [place] [address] 26568- 2722 Apr, [place] [address] [place] [address] 31582- 0433 Apr, Recurrent major depressive disorder, in full remission F33.42 ; Anxiety F41.9 and Other custodial (current) drug therapy Z79.899 [facility] [address] [place] [address] 10272- 6602 Apr, [facility] [address] [place] [id number] [place] [address] 24402- 9296 Apr, Acute cystitis without hematuria N30.00 ; Encounter for immunization Z23 and BMI 40.0-44.9, adult Z68.41 [place] [id number] [place] [address] 22362- 4583 Mar, [facility] [address] [place] [id number] [place] [address] 33580- 7819 Mar, [facility] [address] [place] [id number] [place] [address] 72696- 1229 Feb, Type 2 diabetes mellitus with hyperglycemia, without long- term current use of insulin E11.65 ; Viral upper respiratory tract infection J06.9 ; Tobacco use Z72.0 ; BMI 40.0-44.9, adult Z68.41 and Food insecurity Z59.4 [facility] [address] [address] Jan, Recurrent major depressive disorder, in full remission F33.42 and Anxiety F41.9 [address] [place] [address] 72747- 6323 Jan, Recurrent major depressive disorder, in full remission F33.42 [facility] [place] [address] [place] [address] 47027- 6394 November, [facility] [address] [place] [address] 56163- 8214 November, Chronic migraine without aura without status migrainosus, not intractable G43.709 [place] [id number] [place] [address] 45990- 6435 November, Type 2 diabetes mellitus with hyperglycemia, without long- term current use of insulin E11.65 ; Dysuria R30.0 ; Acute cystitis without hematuria N30.00 ; Lumbago with sciatica, unspecified side M54.40 ; Other chronic pain G89.29 ; Chronic obstructive pulmonary disease, unspecified COPD type J44.9 ; Chest pain, unspecified type R07.9 ; Absent pedal pulses R09.89 and BMI 40.0-44.9, adult Z68.41 [place] [id number] [place] [address] 12304- 9653 Oct, Recurrent major depressive disorder, in full remission F33.42 and Anxiety F41.9 [place] [id number] [place] [address] 91699- 7232 Sep, Other chronic pain G89.[address] 31544- 1584 2017 Other chronic pain G89.29 [place] [id number] [place] [address] 68809- 2198 09 Aug, 2017 Chronic obstructive pulmonary disease, [...] and BMI 40.0-44.9, adult Z68.41 [facility] [address] [place] [address] 62586- 1820 Aug, [facility] [address] [place] [id number] [place] [address] 16851- 4094 Jul, Type 2 diabetes mellitus with hyperglycemia, without long- term current use of insulin E11.65 [facility] [address] [place] [id number] [place] [address] 20159- 9613 Jul, Type 2 diabetes mellitus with hyperglycemia, without long- term current use of insulin E11.65 [facility] [address] [place] [id number] [place] [address] 80717- 1276 Jul, [facility] [address] [place] [id number] [place] [address] 48260- 7344 Jul, Type 2 diabetes mellitus with hyperglycemia, [...] immunization Z23 and BMI 40.0-44.9, adult Z68.41 [address] [place] [address] 50743- 7369 Jun, Migraine without status migrainosus, not intractable, unspecified migraine type G43.909 ; Hypercholesterolemia E78.00 and Lumbago with sciatica, unspecified side M54.40 [place] [id number] [place] [address] 24247- 6192 Jun, Recurrent major depressive disorder, in full remission F33.42 and Anxiety F41.9 [place] [id number] [place] [address] 76599- 8215 Jun, [place] [address] [place] [id number] [place] [address] 45086- 3144 May, Hypercholesterolemia E78.00 ; 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.29 ; Migraine without status migrainosus , not intractable, unspecified migraine type G43.909 and Lumbago with sciatica, unspecified side M54.40 [place] [address] 14010- 0591 May, Multinodular goiter E04.2 [facility] [address] [place] [id number] [place] [address] 99780- 5433 May, [facility] [address] 94923- 5855 Apr, Multinodular goiter E04.2 [facility] [address] 64459- 8306 Apr, Abnormal imaging of thyroid R94.6 ; Hypercholesterolemia E78.00 and 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.29 [place] [id number] [place] [address] 23295- 3185 Mar, Abnormal imaging of thyroid R94.6 [facility] [place] [address] [place] [id number] [place] [address] 21071- 2589 20 Mar, 2017 Chest wall mass R22.[address] 54068- 5503 07 Mar, 2017 Type 2 diabetes mellitus with hyperglycemia, without long- term current use of insulin E11.65 ; Gastroesophageal reflux disease with esophagitis K21.0 ; Hypercholesterolemia E78.00 ; Proteinuria, unspecified R80.9 ; 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.29 ; Chest wall mass R22.2 and Precordial pain R07.2 [facility] [address] [place] [id number] [place] [address] 94189- 4808 Feb, Recurrent major depressive disorder, in full remission F33.[address] [id number] [address] Feb, Recurrent major depressive disorder, in full remission F33.42 and Anxiety F41.9 [facility] [address] [address] 3137 Feb, [facility] [address] [id number] Jan, Dental examination Z01.20 and Dental caries K02.9 [facility] [address] [place] [id number] [place] [address] 01905- 9007 Dec, [place] [address] [place] [id number] [place] [address] 24683- 4710 Dec, [facility] [address] [place] [id number] [place] [address] 25411- 9700 Dec, Type 2 diabetes mellitus with hyperosmolarity [...] and Stress incontinence ( female) (male) N39.3 [facility] [address] [place] [id number] [id number] Dec, Dental caries K02.9 [facility] [address], [place] [address] 32[address] November, [facility] [address] [place] [id number] [address] 1851 November, Essential hypertension I10 ; Other chronic pain G89.29 ; Gastroesophageal reflux disease without esophagitis K21.9 and Anxiety F41.9 [facility] [address] [place] [id number] [id number] November, Dental examination Z01.20 [facility] [address] [place] [address] 49796- 8384 Oct, Recurrent major depressive disorder, in full remission F33.42 [facility] [place] [address] [place] [address] 99679- 6685 Sep, Other chronic pain G89.29 [facility] [address] [place] [id number] [place] [address] 23862- 9927 Sep, Other chronic pain G89.29 and Bipolar 1 disorder F31.9 [facility] [address] [place] [id number] [place] [address] 49193- 2586 Aug, Other chronic pain G89.29 [facility] [address] [place] [id number] [place] [address] 48980- 7161 Jul, Gastroesophageal reflux disease without esophagitis K21.9 [facility] [address] [place] [address] 58924- 6798 Jun, Migraine without status migrainosus, not intractable, unspecified migraine type G43.909 [facility] [address] [place] [address] 04800- 4053 Jun, Type 2 diabetes mellitus with hyperosmolarity [...] ; Essential hypertension I10 and Hypercholesterolemia E78.00 [facility] [place] [address] [place] [address] 40025- 3985 May, [place] [id number] [place] [address] 26211- 4129 Apr, Edema, unspecified type R60.9 ; Type [...] Stress incontinence (female) (male) N39.3 [facility] [address] [place] [id number] [place] [address] 25184- 6638 Apr, [facility] [address] [place] [id number] [place] [address] 95827- 7481 Mar, Headache above the eye region R51 ; Lumbago with sciatica, unspecified side M54.40 ; Edema, unspecified type R60.9 and Migraine without status migrainosus, not intractable, unspecified migraine type G43.909 [facility] [place] [address] [place] [id number] [place] [address] 83675- 2910 Mar, Chronic obstructive pulmonary disease, unspecified COPD type J44.9 ; Type 2 diabetes mellitus with hyperosmolarity without coma, without long-term current use of insulin E11.00 ; Other chronic pain G89.29 ; Migraine without status migrainosus, not intractable, unspecified migraine type G43.909 ; Left-sided chest wall pain R07.89 and Anxiety about health F41.8 [facility] [place] [address] [place] [id number] [place] [address] 39038- 2493 Mar, [facility] [address] [place] [id number] [place] [address] 78651- 7037 Mar, [facility] [address] [place] [id number] [place] [address] 18301- 3816 Mar, [facility] [place] [address] [place] [id number] [place] [address] 80331- 3609 Feb, [facility] [address] [place] [address] 53989- 4167 Feb, [facility] [place] [address] [place] [id number] [place] [address] 36370- 7919 Feb, Chronic fatigue R53.82 ; Lumbago with sciatica, unspecified side M54.40 ; Gastroesophageal reflux disease with esophagitis K21.0 ; Other chronic pain G89.29 ; Morbid obesity due to excess calories E66.01 ; Migraine without status migrainosus, not intractable, unspecified migraine type G43.909 and Edema, unspecified type R60.9 [facility] [address] [place] [id number] [place] [address] [id number] Feb, Dental examination Z01.20 [facility] [address] [place] [id number] [place] [address] 11608- 0382 Feb, [facility] [address] [place] [id number] [place] [address] 45866- 5612 Feb, Type 2 diabetes mellitus with hyperosmolarity without coma, without long-term current use of insulin E11.00 ; Chronic fatigue R53.82 ; Gastroesophageal reflux disease with esophagitis K21.0 ; Morbid obesity due to excess calories E66.01 ; Lumbago with sciatica, unspecified side M54.40 and Other chronic pain G89.29 [facility] [address] [place] [address] 02863- 5473 Feb, Type 2 diabetes mellitus with hyperosmolarity without coma, without long-term current use of insulin E11.00 ; Chronic fatigue R53.82 ; Gastroesophageal reflux disease with esophagitis K21.0 ; Morbid obesity due to excess calories E66.01 ; Lumbago with sciatica, unspecified side M54.40 and Other chronic pain G89.29 [facility] [address] [place] [address] [id number] Feb, Dental examination Z01.20 [facility] [address] [place] [address] 08608- 3070 Jan, [facility] [address] [id number] [place] [address]- 9767 Mar, [facility] [address] [id number] [id number] Feb, Dental examination V72.2 [facility] [address] [id number] [place] [address]- 9130 Oct, [facility] [address] [id number] [place] [address]- 4048 Oct, [facility] [address] [id number] [place] [address]- 0175 Aug, [facility] [id number] [place] [address], [place] [address]- 9706 Aug, [facility] [address] [facility] [id number] [place] [address]- 9043 Jul, [facility] [address] [place] [id number] [address]- 4865 Jul, [facility] [address] [id number] [place] [address]- 7896 Jun, [facility] [address] [facility] [id number] [place] [address]- 8779 Jun, [facility] [address] [id number] [place] [address]- 3775 Jun, [facility] [address] [id number] [address]- 1357 Jun, [facility] [address] [id number] [place] [address]- 0186 Jun, [facility] [address] [id number] [place] 9888 Jun, [facility] [address] [id number] [place] 6980 Jun, [facility] [address] [id number] [address]- 2495 Jun, [facility] [place] [facility] [address] [id number] [place] [address]- 9007 Jun, [facility] [place] [facility] [address] [id number] [place] [address]- 2135 Jun, [facility] [place] [facility] [address] [id number] [place] [address]- 1206 Jun, [facility] [place] [facility] [address] [id number] [place] [address]- 3355 Jun, [facility] [place] [facility] [address] [id number] [place] [address]- 7228 Jun, [facility] [place] [facility] [address] [id number] [place] [address]- 4842 May, [facility] [place] [facility] [address] [id number] [place] [address]- 7106 May, [facility] [place] [facility] [address] [id number] [place] [address]- 0764 May, [facility] [place] [facility] [address] [id number] [place] [address]- 7472 May, [facility] [place] [facility] [address] [id number] [place] [address]- 2049 Apr, [facility] [place] [facility] [address] [id number] [place] [address]- 0419 Apr, [facility] [place] [facility] [address] [id number] [place] [address]- 5558 Apr, [facility] [place] [facility] [address] [id number] [place] [address]- 9019 Apr, [facility] [place] [facility] [address] [id number] [place] [address]- 9110 Apr, [facility] [place] [facility] [address] [id number] [place] [address]- 8637 Apr, [facility] [place] [facility] [address], [place] [address]- 7768 Apr, [facility] [id number] [address]89 Apr, [facility] [address] 7324 Apr, [facility] [address] 9884 Apr, [facility] [address] [address]- 1464 Mar, [facility] [address] 5494 Mar, [facility] [address] [address]- 3190 Feb, [facility] [address], [place] [address]- 2840 Feb, [facility] [address], [place] [address]- 6904 Feb, [facility] [address], [place] [address]- 1661 Feb, [facility] [id number] [address]- 9728 Jan, [facility] [id number] [address]- 5774 Jan, IMMUNIZATIONS No Known Immunizations SOCIAL HISTORY Never Assessed REASON FOR VISIT doctor's note PLAN OF CARE VITAL SIGNS MEDICATIONS [...] and UTI 02/2017 Hospitalization History [facility]- UTI 11/23/2017
--- OUTSIDE RECORDS SUMMARY | 2018-07-06 21:20 | XMS REPORT ---
Author Author ASHLEY KEE Organization [facility] Address [address] [place] [address] Care Team Providers Care Sales And Service Technician Name Role Phone ASHLEY KEE Unavailable PROBLEMS Type Condition ICD9-CM Code NJX21-YB Code Onset Dates Condition Status SNOMED Code Problem Essential hypertension I10 Active 56502494 Problem Recurrent major depressive disorder, in full remission F33.42 Active 352536374 Problem Anxiety F41.9 Active 39798816 Problem Chronic migraine without aura without status migrainosus, not intractable G43.709 Active 965788966 Problem Chronic obstructive pulmonary disease, unspecified COPD type J44.9 Active 24173575 Problem Mixed incontinence urge and stress N39.46 Active 286492395 Problem Obstructive sleep apnea syndrome G47.33 Active 52237832 Problem 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 Active 5347662487096657 Problem Proteinuria, unspecified R80.9 Active 57024423 Problem Type 2 diabetes mellitus with hyperglycemia, without long-term current use of insulin E11.65 Active 38552608 Problem Multinodular goiter E04.2 Active 960221519 Problem 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.29 Active 205295108 Problem Precordial pain R07.2 Active 42926012 Problem Lumbago with sciatica, unspecified side M54.40 Active 154122068 Problem CPAP (continuous positive airway pressure) dependence Z99.89 Active 959786175 Problem Primary osteoarthritis of left knee M17.12 Active 861209396638590 Problem Gastroesophageal reflux disease with esophagitis K21.0 Active 897035302 Problem Chronic fatigue R53.82 Active 67917419 Problem Other chronic pain G89.29 Active 23679141 Problem Hypercholesterolemia E78.00 Active 50448414 Problem Morbid obesity due to excess calories E66.01 Active 111044254 Problem Bipolar 1 disorder F31.9 Active 976040517 ALLERGIES Substance Reaction Event Type Date Status Penicillin V Potassium Unknown Drug Allergy Apr, Active Iodine Unknown Drug Allergy Apr, Active ENCOUNTERS Encounter Location Date Diagnosis [place] [address], [place] [address] Jul, [facility] [address], [place] [address] Apr, [place] [address] [place] [id number] [place] [address] Apr, Recurrent major depressive disorder, in full remission F33.42 ; Anxiety F41.9 and Other skilled nursing (current) drug therapy Z79.899 [place] [id number] [place] [address]- [address] Apr, [place] [address] [id number] [place] [address] 91623- 6723 Apr, Acute cystitis without hematuria N30.00 ; Encounter for immunization Z23 and BMI 40.0-44.9, adult Z68.41 [place] [address], [place] [address] Mar, [place] [address] [id number] [place] [address] 38785- 3832 Mar, [place] [address], [place] [address] Feb, Type 2 diabetes mellitus with hyperglycemia, without long- term current use of insulin E11.65 ; Viral upper respiratory tract infection J06.9 ; Tobacco use Z72.0 ; BMI 40.0-44.9, adult Z68.41 and Food insecurity Z59.4 [place] [address], [place] [address] Jan, Recurrent major depressive disorder, in full remission F33.42 and Anxiety F41.9 [place] [address], [place] [address] Jan, Recurrent major depressive disorder, in full remission F33.42 [place] [address] [id number] [place] [address] 28513- 7280 November, [place] [address] [id number] [place] [address] 37121- 0187 November, Chronic migraine without aura without status migrainosus, not intractable G43.709 [place] [address] [address] [id number] [place] [address] 64006- 7553 November, Type 2 diabetes mellitus with hyperglycemia, without long- term current use of insulin E11.65 ; Dysuria R30.0 ; Acute cystitis without hematuria N30.00 ; Lumbago with sciatica, unspecified side M54.40 ; Other chronic pain G89.29 ; Chronic obstructive pulmonary disease, unspecified COPD type J44.9 ; Chest pain, unspecified type R07.9 ; Absent pedal pulses R09.89 and BMI 40.0-44.9, adult Z68.[address] [address] Oct, Recurrent major depressive disorder, in full remission F33.42 and Anxiety F41.9 [place] [address] [id number] [place] [address] 85995- 9231 Sep, Other chronic pain G89.29 [place] [address] [id number] [place] [address] 97597- 7782 Aug, Other chronic pain G89.29 [place] [address] [id number] [place] [address] 94631- 1370 09 Aug, 2017 Chronic obstructive pulmonary disease, [...] goiter E04.2 and BMI 40.0-44.9, adult Z68.41 [place] [address] [id number] [place] [address] 61893- 3696 Aug, [place] [address] [id number] [place] [address] 58964- 5887 Jul, Type 2 diabetes mellitus with hyperglycemia, without long- term current use of insulin E11.65 [place] [address] [id number] [place] [address] 07887- 0542 Jul, Type 2 diabetes mellitus with hyperglycemia, without long- term current use of insulin E11.65 [place] [address] [id number] [place] [address] 04530- 5241 Jul, [place] [address] [address] Jul, Type 2 diabetes mellitus with hyperglycemia, [...] immunization Z23 and BMI 40.0-44.9, adult Z68.41 [place] [address] [place] [address] 11671- 6631 Jun, Migraine without status migrainosus, not intractable, unspecified migraine type G43.909 ; Hypercholesterolemia E78.00 and Lumbago with sciatica, unspecified side M54.40 [place] [address] [id number] [place] [address] 60088- 2307 Jun, Recurrent major depressive disorder, in full remission F33.42 and Anxiety F41.9 [place] [address] [id number] [place] [address] 11968- 9111 Jun, [place] [address] [address]- 0883 May, Hypercholesterolemia E78.00 ; 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.29 ; Migraine without status migrainosus , not intractable, unspecified migraine type G43.909 and Lumbago with sciatica, unspecified side M54.40 [place] [address] [address]- 67[address] 14 May, 2017 Multinodular goiter E04.[address] 9[address]- 7291 May, [place] [address] 9[address]55- 6606 Apr, Multinodular goiter E04.2 [place] [address] 48715- 9869 Apr, Abnormal imaging of thyroid R94.6 ; Hypercholesterolemia E78.00 and 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.29 [place] [id number] [place] [address] 02922- 6683 Mar, Abnormal imaging of thyroid R94.6 [place] [id number] [place] [address] 67188- 5326 20 Mar, 2017 Chest wall mass R22.2 [place] [address] [id number] [place] [address] 56781- 1174 07 Mar, 2017 Type 2 diabetes mellitus with hyperglycemia, without long- term current use of insulin E11.65 ; Gastroesophageal reflux disease with esophagitis K21.0 ; Hypercholesterolemia E78.00 ; Proteinuria, unspecified R80.9 ; 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.29 ; Chest wall mass R22.2 and Precordial pain R07.2 [place] [id number] [place] [address] 60434- 4872 Feb, Recurrent major depressive disorder, in full remission F33.42 [facility] [address] [place] [address] 27074- 3723 Feb, Recurrent major depressive disorder, in full remission F33.42 and Anxiety F41.9 [facility] [address] [place] [address] 65241- 1162 Feb, [facility] [address] [id number] [place] [id number] Jan, Dental examination Z01.20 and Dental caries K02.9 [place] [address] [place] [address] [id number] [place] [address] 78433- 7951 Dec, [facility] [address] [id number] [place] [address] 10993- 5430 Dec, [place] [address] [place] [address] [id number] [place] [address] 95906- 6430 Dec, Type 2 diabetes mellitus with hyperosmolarity [...] and Stress incontinence ( female) (male) N39.3 [facility] [address] [id number] [id number] Dec, Dental caries K02.9 [facility] [address] [place] [address] 64377- 4221 November, [facility] [address] [place] [address] 29235- 7750 November, Essential hypertension I10 ; Other chronic pain G89.29 ; Gastroesophageal reflux disease without esophagitis K21.9 and Anxiety F41.9 [facility] [address] [id number] November, Dental examination Z01.20 [place] [address] [place] [address] 31252- 0963 Oct, Recurrent major depressive disorder, in full remission F33.42 [place] [address] [id number] [place] [address] 60191- 8440 Sep, Other chronic pain G89.29 [place] [address] [id number] [place] [address] 66168- 2699 Sep, Other chronic pain G89.29 and Bipolar 1 disorder F31.9 [place] [address] [address] [id number] [place] [address] 11948- 7148 Aug, Other chronic pain G89.29 [place] [address] [place] [id number] [place] [address] 56281- 3167 Jul, Gastroesophageal reflux disease without esophagitis K21.9 [place] [address] [place] [address] [place] [address] 57719- 9828 Jun, Migraine without status migrainosus, not intractable, unspecified migraine type G43.909 [place] [address] [place] [address] 31797- 5015 Jun, Type 2 diabetes mellitus with hyperosmolarity [...] ; Essential hypertension I10 and Hypercholesterolemia E78.00 [place] [address] [address] [id number] [place] [address] 31820- 3137 May, [place] [address] [address] [id number] [place] [address] 71785- 6837 Apr, Edema, unspecified type R60.9 ; Type [...] Z23 and Stress incontinence (female) (male) N39.3 [place] [address] [place] [address] [id number] [place] [address] 36365- 3310 Apr, [place] [address] [place] [address] [id number] [place] [address] 51788- 4882 Mar, Headache above the eye region R51 ; Lumbago with sciatica, unspecified side M54.40 ; Edema, unspecified type R60.9 and Migraine without status migrainosus, not intractable, unspecified migraine type G43.909 [place] [address] [address] [address] [place] [address] 23102- 4761 Mar, Chronic obstructive pulmonary disease, unspecified COPD type J44.9 ; Type 2 diabetes mellitus with hyperosmolarity without coma, without long-term current use of insulin E11.00 ; Other chronic pain G89.29 ; Migraine without status migrainosus, not intractable, unspecified migraine type G43.909 ; Left-sided chest wall pain R07.89 and Anxiety about health F41.8 [place] [address] [address] [id number] [place] [address] 33942- 2593 Mar, [place] [address] [place] [id number] [place] [address] 27154- 5129 Mar, [place] [address] [place] [address] [id number] [place] [address] 53428- 5596 Mar, [place] [address], [place] [address]- 6608 Feb, [place] [address], [place] [address]- 0380 Feb, [place] [address], [place] [address]- 7139 Feb, Chronic fatigue R53.82 ; Lumbago with sciatica, unspecified side M54.40 ; Gastroesophageal reflux disease with esophagitis K21.0 ; Other chronic pain G89.29 ; Morbid obesity due to excess calories E66.01 ; Migraine without status migrainosus, not intractable, unspecified migraine type G43.909 and Edema, unspecified type R60.9 [facility] [address] [address] Feb, Dental examination Z01.20 [place] [address] [place] [address] [address]- [address] Feb, [place] [address] [place] [id number] [place] [address] 82847- 3066 Feb, Type 2 diabetes mellitus with hyperosmolarity without coma, without long-term current use of insulin E11.00 ; Chronic fatigue R53.82 ; Gastroesophageal reflux disease with esophagitis K21.0 ; Morbid obesity due to excess calories E66.01 ; Lumbago with sciatica, unspecified side M54.40 and Other chronic pain G89.29 [place] [address], [place] [address]- 7402 Feb, Type 2 diabetes mellitus with hyperosmolarity without coma, without long-term current use of insulin E11.00 ; Chronic fatigue R53.82 ; Gastroesophageal reflux disease with esophagitis K21.0 ; Morbid obesity due to excess calories E66.01 ; Lumbago with sciatica, unspecified side M54.40 and Other chronic pain G89.29 [facility] [address] [address] Feb, Dental examination Z01.20 [place] [address] [place] [id number] [place] [address]- [address] Jan, [facility] [address] [id number] [place] [address]- 1996 Mar, [facility] [address] [id number] [place] [id number] Feb, Dental examination V72.2 [facility] [address] [id number] [place] [address]- 3444 Oct, [facility] [address] [id number] [place] [address]- 5198 Oct, [facility] [address] [id number] [place] [address]- 2046 Aug, [facility] [address] [id number] [place] [address]- 3146 Aug, [facility] [address] [place] [id number] [place] [address]- 7108 Jul, [facility] [address] [id number] [place] [address] Jul, [facility] [address] [place] [id number] [address] 8276 Jun, [facility] [address] [id number] [place] Jun, [facility] [place] [facility] [address] [id number] [place] [address]- 6037 Jun, [facility] [address] [id number] [place] [address] 2549 Jun, [facility] [place] [facility] [address] [id number] [place] [address]- 0606 Jun, [facility] [place] [facility] [address] [facility] [id number] [place] [address]- 4986 Jun, [facility] [place] [facility] [address] [facility] [id number] [place] [address]- 8884 Jun, [facility] [place] [facility] [address] [id number] [place] [address]- 8549 Jun, [facility] [place] [facility] [address] [id number] [place] [address]- 6807 Jun, [facility] [place] [facility] [address] [id number] [place] [address]- 5191 Jun, [facility] [place] [facility] [address] [id number] [place] [address]- 3968 Jun, [facility] [place] [facility] [address] [id number] [place] [address]- 5368 Jun, [facility] [place] [facility] [address] [id number] [place] [address]- 3953 Jun, [facility] [place] [facility] [address] [id number] [place] [address]- 6366 May, [facility] [place] [facility] [address] [id number] [place] [address]- 1448 May, [facility] [place] [facility] [address] [id number] [place] [address]- 0534 May, [facility] [place] [facility] [address] [id number] [place] [address]- 9697 May, [facility] [place] [facility] [address] [id number] [place] [address]- 7724 Apr, [facility] [place] [facility] [address] [id number] [address]- 9578 Apr, [facility] [place] [facility] [address] [id number] [place] [address]- 1531 Apr, [facility] [place] [facility] [address] [id number] [place] [address]- 2183 Apr, [facility] [place] [facility] [address] [id number] [place] [address]- 2841 Apr, [facility] [place] [facility] [id number], [place] [address]- 9819 Apr, [facility] [id number], [place] [address]- 8415 Apr, [facility] [id number], [place] [address]- 9083 Apr, [facility] [address], [place] [address]- 0294 Apr, [facility] [address], [place] [address]- 1727 Apr, [facility] [address], [place] [address]- 7082 Mar, [facility] [address], [place] [address]- 2361 Mar, [facility] [address], [place] [address]- 4701 Feb, [facility] [address], [place] [address]- 8541 Feb, [facility] [address], [place] [address]- 2218 Feb, [facility] [id number], [place] [address]- 0264 Feb, [facility] [id number], [place] [address]- 4408 Jan, [facility] [id number], [place] [address]- 8985 Jan, IMMUNIZATIONS No Known Immunizations SOCIAL HISTORY Never Assessed REASON FOR VISIT CASANDRA f/jeevan Heath RN PLAN OF CARE Activity Details Follow Up 3 Months Reason:CASANDRA f/u VITAL SIGNS Height 68 in 2018-04-28 Weight 272 lbs 2018-04-28 Heart Rate 96 bpm 2018-04-28 Respiratory Rate 20 2018-04-28 BMI 41.35 kg/m2 2018-04-28 Blood pressure systolic 118 mmHg 2018-04-28 Blood pressure diastolic 74 mmHg 2018-04-28 MEDICATIONS Medication Instructions Dosage Frequency Start Date End Date Duration Status Omeprazole 20MG TAKE ONE CAPSULE BY MOUTH ONCE DAILY Active Albuterol Sulfate HFA 108 (90 Base) MCG/ACT Inhalation every 4 hrs 2 puffs as needed 4h Active Topiramate 50MG TAKE THREE TABLETS BY MOUTH TWICE DAILY Active Propranolol HCl 20 mg Orally Twice a day 1 tablet 12h 30 days Active Atorvastatin Calcium 10MG TAKE ONE TABLET BY MOUTH ONCE DAILY Active Bactrim DS 800-160 MG Orally Twice a day 1 tablet 12h Active Metformin HCl 500MG TAKE ONE TABLET BY MOUTH TWICE DAILY WITH MEALS 90 Not-Taking Blood Glucose Test - In Vitro 2 times a day DX: E11.65 test blood sugar Jul, Not-Taking Chantix Starting Month Chao 0.5 MG X 11 & 1 MG X 42 as directed Mar, Active Baby Aspirin 81 MG Orally Once a day 1 tablet 24h Active Breo Ellipta 200-25 MCG/INH Inhalation Once a day 1 puff 24h Active Sumatriptan Succinate 100 mg Orally Once a day 1 tablet as needed 24h 30 days Active Abilify 10 mg Orally Once a day 1 tablet 24h Active Gabapentin 600MG Orally Three times a day 2 tablets 8h Active Tizanidine HCl 2MG TAKE ONE TABLET BY MOUTH THREE TIMES DAILY NEEDED Active Metformin HCl 1000 MG Orally Twice a day 1 tablet with meals 12h Active Lisinopril 10 mg Orally Once a day 1 tablet 24h 07 Mar, 2017 Active Blood Glucose Monitor System w/Device as directed Jul, Not-Taking RESULTS No Results PROCEDURES Procedure Date Ordered Result Body Site [facility] ESTABLISHED PATIENT Apr 28, 2018 INSTRUCTIONS MEDICATIONS ADMINISTERED No Known [...] Hospitalization History psychiatric stay s/p overdose in [place] in 2006 Hospitalization History chest pain and UTI 02/2017 Hospitalization History ED [place]- UTI 11/23/2017
--- OUTSIDE RECORDS SUMMARY | 2018-07-06 21:21 | XMS REPORT ---
Author Author MEHDI OBINNA [facility] Address [address] [place] [address] Care Team Providers Care Batch Weigher Name Role Phone MEHDISHARON KRUSEHANY Unavailable PROBLEMS Type Condition ICD9-CM Code MJS71-PV Code Onset Dates Condition Status SNOMED Code Problem Essential hypertension I10 Active 55297031 Problem Recurrent major depressive disorder, in full remission F33.42 Active 258431718 Problem Anxiety F41.9 Active 65295750 Problem Chronic migraine without aura without status migrainosus, not intractable G43.709 Active 220456509 Problem Chronic obstructive pulmonary disease, unspecified COPD type J44.9 Active 24254875 Problem Mixed incontinence urge and stress N39.46 Active 631755592 Problem Obstructive sleep apnea syndrome G47.33 Active 83381378 Problem 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 Active 0043009175343286 Problem Proteinuria, unspecified R80.9 Active 03928660 Problem Type 2 diabetes mellitus with hyperglycemia, without long-term current use of insulin E11.65 Active 63836617 Problem Multinodular goiter E04.2 Active 684295818 Problem 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.29 Active 524962575 Problem Precordial pain R07.2 Active 50277573 Problem Lumbago with sciatica, unspecified side M54.40 Active 463376916 Problem CPAP (continuous positive airway pressure) dependence Z99.89 Active 641381724 Problem Primary osteoarthritis of left knee M17.12 Active 987873996650291 Problem Gastroesophageal reflux disease with esophagitis K21.0 Active 286052396 Problem Chronic fatigue R53.82 Active 44134444 Problem Other chronic pain G89.29 Active 99489898 Problem Hypercholesterolemia E78.00 Active 37603848 Problem Morbid obesity due to excess calories E66.01 Active 632269349 Problem Bipolar 1 disorder F31.9 Active 880856003 ALLERGIES No Information ENCOUNTERS Encounter Location Date Diagnosis [facility] [address] [address] Apr, [place] [address] [place] [id number] [place] [address] 67103- 3077 Apr, [place] [id number] [place] [address] [id number]- 0464 Apr, [place] [address] [place] [id number] [place] [address] 96625- 2651 Mar, [place] [address] [place] [id number] [place] [address] 50524- 5022 Mar, [place] [address] [place] [id number] [place] [address] 099556- 6317 Feb, Type 2 diabetes mellitus with hyperglycemia, without long- term current use of insulin E11.65 ; Viral upper respiratory tract infection J06.9 ; Tobacco use Z72.0 ; BMI 40.0-44.9, adult Z68.41 and Food insecurity Z59.4 [place] [id number] [place] [address] 44639- 6520 Jan, Recurrent major depressive disorder, in full remission F33.42 and Anxiety F41.9 [address] [place] [address] 11226- 9714 Jan, Recurrent major depressive disorder, in full remission F33.42 [facility] [address] [place] [id number] [place] [address] 11677- 3855 November, [place] [address] [place] [id number] [place] [address] 39877- 7386 November, Chronic migraine without aura without status migrainosus, not intractable G43.709 [address] [place] [address] 59806- 8948 November, Type 2 diabetes mellitus with hyperglycemia, without long- term current use of insulin E11.65 ; Dysuria R30.0 ; Acute cystitis without hematuria N30.00 ; Lumbago with sciatica, unspecified side M54.40 ; Other chronic pain G89.29 ; Chronic obstructive pulmonary disease, unspecified COPD type J44.9 ; Chest pain, unspecified type R07.9 ; Absent pedal pulses R09.89 and BMI 40.0-44.9, adult Z68.41 [place] [id number] [place] [address] 45810- 7339 Oct, Recurrent major depressive disorder, in full remission F33.42 and Anxiety F41.9 [place] [id number] [place] [address] 22128- 9064 Sep, Other chronic pain G89.29 [place] [id number] [place] [address] 23587- 2553 Aug, Other chronic pain G89.29 [place] [address] [place] [id number] [place] [address] 14622- 2535 Aug, Chronic obstructive pulmonary disease, unspecified COPD [...] and BMI 40.0-44.9, adult Z68.41 [place] [address] [place] [address] 92721- 6186 Aug, [place] [id number] [place] [address] 02770- 6156 Jul, Type 2 diabetes mellitus with hyperglycemia, without long- term current use of insulin E11.65 [place] [id number] [place] [address] 08571- 9805 25 Micah, 2018 Type 2 diabetes mellitus with hyperglycemia, without long- term current use of insulin E11.65 [place] [address] [place] [id number] [place] [address] 18706- 2178 Jul, [place] [address] [place] [id number] [place] [address] 69815- 2438 Jul, Type 2 diabetes mellitus with hyperglycemia, [...] immunization Z23 and BMI 40.0-44.9, adult Z68.[address] 49187- 0573 Jun, Migraine without status migrainosus, not intractable, unspecified migraine type G43.909 ; Hypercholesterolemia E78.00 and Lumbago with sciatica, unspecified side M54.40 [place] [id number] [place] [address] 61260- 2538 Jun, Recurrent major depressive disorder, in full remission F33.42 and Anxiety F41.9 [place] [id number] [place] [address] 04191- 3717 Jun, [place] [id number] [place] [address] 55386- 4068 May, Hypercholesterolemia E78.00 ; 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.29 ; Migraine without status migrainosus , not intractable, unspecified migraine type G43.909 and Lumbago with sciatica, unspecified side M54.40 [place] [id number] [place] [address] 45859- 0098 May, Multinodular goiter E04.2 [place] [address], [place] [address] 0999 May, [place] [address] [place] [id number] [place] [address] 97098- 8314 Apr, Multinodular goiter E04.2 [place] [address] [place] [id number] [place] [address] 74569- 2819 Apr, Abnormal imaging of thyroid R94.6 ; Hypercholesterolemia E78.00 and 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.29 [place] [address] [place] [id number] [place] [address] 28044- 2199 29 Mar, 2017 Abnormal imaging of thyroid R94.6 [facility] [address] [place] [id number] [place] [address] 98623- 7239 20 Mar, 2017 Chest wall mass R22.2 [place] [address] [place] [id number] [place] [address] 13137- 1355 07 Mar, 2017 Type 2 diabetes mellitus with hyperglycemia, without long- term current use of insulin E11.65 ; Gastroesophageal reflux disease with esophagitis K21.0 ; Hypercholesterolemia E78.00 ; Proteinuria, unspecified R80.9 ; 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.29 ; Chest wall mass R22.2 and Precordial pain R07.2 [place] [address], [place] [address] 7802 Feb, Recurrent major depressive disorder, in full remission F33.42 [place] [address], [place] [address] 5591 Feb, Recurrent major depressive disorder, in full remission F33.42 and Anxiety F41.9 [place] [address] [place] [id number] [place] [address] 45838- 7640 Feb, [facility] [address] [id number] Jan, Dental examination Z01.20 and Dental caries K02.9 [place] [address] [place] [id number] [place] [address] 28759- 1009 Dec, [place] [address] 38721- 3573 Dec, [place] [address] [place] [id number] [place] [address] 98842- 8243 Dec, Type 2 diabetes mellitus with hyperosmolarity [...] and Stress incontinence ( female) (male) N39.3 [facility] [address] [id number] Dec, Dental caries K02.9 [place] [address] 46411- 1680 November, [place] [address] [place] [id number] [place] [address] 78019- 4794 November, Essential hypertension I10 ; Other chronic pain G89.29 ; Gastroesophageal reflux disease without esophagitis K21.9 and Anxiety F41.9 [facility] [address] [place] [id number] [place] [address] [id number] November, Dental examination Z01.20 [facility] [address] [place] [id number] [place] [address] 45376- 1178 Oct, Recurrent major depressive disorder, in full remission F33.42 [place] [address] [place] [id number] [place] [address] 92600- 0417 Sep, Other chronic pain G89.29 [place] [address] 73505- 9532 Sep, Other chronic pain G89.29 and Bipolar 1 disorder F31.9 [place] [address] [place] [id number] [place] [address] 18777- 5150 Aug, Other chronic pain G89.29 [place] [address] [place] [id number] [place] [address] 86183- 2958 Jul, Gastroesophageal reflux disease without esophagitis K21.9 [place] [address] [place] [id number] [place] [address] 29031- 9990 Jun, Migraine without status migrainosus, not intractable, unspecified migraine type G43.909 [place] [address] [place] [id number] [place] [address] 31911- 6527 Jun, Type 2 diabetes mellitus with hyperosmolarity [...] hypertension I10 and Hypercholesterolemia E78.00 [place] [address] [place] [id number] [place] [address] 24552- 9105 May, [place] [address] [place] [id number] [place] [address] 41576- 6509 Apr, Edema, unspecified type R60.9 ; Type [...] Stress incontinence (female) (male) N39.3 [place] [address] [place] [id number] [place] [address] 68891- 7868 Apr, [place] [address] [place] [id number] [place] [address] 34481- 8729 Mar, Headache above the eye region R51 ; Lumbago with sciatica, unspecified side M54.40 ; Edema, unspecified type R60.9 and Migraine without status migrainosus, not intractable, unspecified migraine type G43.909 [place] [address] [place] [id number] [place] [address] 00912- 0206 Mar, Chronic obstructive pulmonary disease, unspecified COPD type J44.9 ; Type 2 diabetes mellitus with hyperosmolarity without coma, without long-term current use of insulin E11.00 ; Other chronic pain G89.29 ; Migraine without status migrainosus, not intractable, unspecified migraine type G43.909 ; Left-sided chest wall pain R07.89 and Anxiety about health F41.8 [place] [address] [place] [id number] [place] [address] 53650- 0355 Mar, [place] [address] [place] [id number] [place] [address] 88136- 6844 Mar, [place] [address] [place] [id number] [place] [address] 18778- 9668 Mar, [place] [address] [place] [id number] [place] [address] 89291- 3216 Feb, [place] [address] [place] [id number] [place] [address] 93075- 0723 Feb, [place] [address] [place] [id number] [place] [address] 58943- 7169 Feb, Chronic fatigue R53.82 ; Lumbago with sciatica, unspecified side M54.40 ; Gastroesophageal reflux disease with esophagitis K21.0 ; Other chronic pain G89.29 ; Morbid obesity due to excess calories E66.01 ; Migraine without status migrainosus, not intractable, unspecified migraine type G43.909 and Edema, unspecified type R60.9 [facility] [address] [id number] Feb, Dental examination Z01.20 [facility] [address] [place] [id number] [place] [address] [id number]- 0577 Feb, [facility] [address] [address] [id number] [place] [address] 88367- 4423 Feb, Type 2 diabetes mellitus with hyperosmolarity without coma, without long-term current use of insulin E11.00 ; Chronic fatigue R53.82 ; Gastroesophageal reflux disease with esophagitis K21.0 ; Morbid obesity due to excess calories E66.01 ; Lumbago with sciatica, unspecified side M54.40 and Other chronic pain G89.29 [facility] [address] [place] [id number] [place] [address] 00779- 1155 Feb, Type 2 diabetes mellitus with hyperosmolarity without coma, without long-term current use of insulin E11.00 ; Chronic fatigue R53.82 ; Gastroesophageal reflux disease with esophagitis K21.0 ; Morbid obesity due to excess calories E66.01 ; Lumbago with sciatica, unspecified side M54.40 and Other chronic pain G89.29 [facility] [address] [place] [address] [id number] Feb, Dental examination Z01.20 [facility] [address] [place] [address] 67665- 2832 Jan, [facility] [address] [place] [id number] [place] [address] [id number]- 8469 Mar, [facility] [address] [place] [address] [id number] Feb, Dental examination V72.2 [facility] [address] [place] [id number] [place] [address] [id number]- [phone] Oct, [facility] [address] [address] [id number] [place] [address] 65682- 4601 Oct, [facility] [place] [facility] [address] [id number] [place] [address]- 6156 Aug, [facility] [place] [facility] [address] [id number] [place] [address]- 9178 Aug, [facility] [place] [facility] [address] [id number] [place] [address]- 8576 Jul, [facility] [place] [facility] [address] [id number] [place] [address]- 1450 Jul, [facility] [place] [facility] [address] [id number] [place] [address]- 6710 Jun, [facility] [place] [facility] [address] [id number] [place] [address]- 8630 Jun, [facility] [place] [facility] [address] [id number] [place] [address]- 1751 Jun, [facility] [place] [facility] [address] [id number] [place] [address]- 2316 Jun, [facility] [place] [facility] [address] [id number] [place] [address]- 1725 Jun, [facility] [place] [facility] [address] [id number] [place] [address]- 2167 Jun, [facility] [place] [facility] [address] [id number] [place] [address]- 2224 Jun, [facility] [place] [facility] [address] [id number] [place] [address]- 8134 Jun, [facility] [place] [facility] [address] [id number] [place] [address]- 7694 Jun, [facility] [place] [facility] [address] [id number] [place] [address]- 6591 Jun, [facility] [place] [facility] [address] [id number] [place] 5965 Jun, [facility] [place] [facility] [address] [id number], [place] [address]- 5991 Jun, [facility] [place] [facility] [address] [id number] [place] [address]- 0733 Jun, [facility] [place] [facility] [address] [id number] [place] 3546 May, [facility] [place] [facility] [address] [id number] [place] [address]- 7892 May, [facility] [place] [facility] [address] [id number] [place] [address]- 2308 May, [facility] [place] [facility] [address] [id number] [place] 3084 May, [facility] [place] [facility] [address] [id number] [place] [address]- 5883 Apr, [facility] [place] [facility] [address] [id number] [place] [address]- 9033 Apr, [facility] [place] [facility] [address] [id number] [place] [address]- 6666 Apr, [facility] [place] [facility] [address] [id number] [place] [address]- 2434 Apr, [facility] [place] [facility] [address] [facility] [id number] [place] [address]- 0622 Apr, [facility] [place] [facility] [address] [id number] [place] [address]- 1874 Apr, [facility] [place] [facility] [address] [id number], [place] [address]- 3692 Apr, [facility] [place] [facility] [address] [id number] [place] 0186 Apr, [facility] [place] [facility] [address] [id number] [place] [address]- 0982 Apr, [facility] [place] [facility] [address] [facility] [id number] [place] 2292 Apr, [facility] [place] [facility] [id number] [address]- 5478 Mar, [facility] [address] [facility] [id number], [place] [address]- 5530 Mar, [facility] [address] [facility] [id number]- 5974 Feb, [facility] [address] [facility] [id number], [place] [address]- 7494 Feb, [facility] [address] [facility] [id number], [place] [address]- 0587 Feb, [facility] [address], [place] [address]- 8372 Feb, [facility] [address] 5141 Jan, [facility] [id number] 8785 Jan, IMMUNIZATIONS No Known Immunizations SOCIAL HISTORY Never Assessed REASON FOR VISIT Prior Authorization- Nicotine Patch PLAN OF CARE VITAL SIGNS MEDICATIONS Medication Instructions Dosage Frequency Start Date End Date Duration Status Chantix Starting Month Chao 0.5 MG X 11 & 1 MG X 42 as directed Mar, Active RESULTS No Results PROCEDURES No Known [...] and UTI 02/2017 Hospitalization History [facility]- UTI 11/23/2017
--- OUTSIDE RECORDS SUMMARY | 2018-07-06 21:21 | XMS REPORT ---
Author Author MEHDI OBINNA [facility] Address [address] [place] [address] Care Team Providers Care Sales Associate Key Holder Name Role Phone OBINNA HARDING Unavailable PROBLEMS Type Condition ICD9-CM Code BAO68-TR Code Onset Dates Condition Status SNOMED Code Problem Essential hypertension I10 Active 32252674 Problem Recurrent major depressive disorder, in full remission F33.42 Active 265725517 Problem Anxiety F41.9 Active 94332687 Problem Chronic migraine without aura without status migrainosus, not intractable G43.709 Active 980340021 Problem Chronic obstructive pulmonary disease, unspecified COPD type J44.9 Active 52100404 Problem Mixed incontinence urge and stress N39.46 Active 400383913 Problem Obstructive sleep apnea syndrome G47.33 Active 03753319 Problem 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 Active 9914678485910121 Problem Proteinuria, unspecified R80.9 Active 20235185 Problem Type 2 diabetes mellitus with hyperglycemia, without long-term current use of insulin E11.65 Active 90943713 Problem Multinodular goiter E04.2 Active 704067099 Problem 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.29 Active 527295629 Problem Precordial pain R07.2 Active 33286649 Problem Lumbago with sciatica, unspecified side M54.40 Active 467605710 Problem CPAP (continuous positive airway pressure) dependence Z99.89 Active 257906339 Problem Primary osteoarthritis of left knee M17.12 Active 408066742881532 Problem Gastroesophageal reflux disease with esophagitis K21.0 Active 690597742 Problem Chronic fatigue R53.82 Active 62704722 Problem Other chronic pain G89.29 Active 90223475 Problem Hypercholesterolemia E78.00 Active 34553856 Problem Morbid obesity due to excess calories E66.01 Active 692787752 Problem Bipolar 1 disorder F31.9 Active 509422533 ALLERGIES Substance Reaction Event Type Date Status Penicillin V Potassium Unknown Drug Allergy Apr, Active Iodine Unknown Drug Allergy Apr, Active ENCOUNTERS Encounter Location Date Diagnosis [facility] [address] [address] Jul, [facility] [address] [address] Apr, [facility] [id number] [place] [address] 81739- 4340 Apr, Recurrent major depressive disorder, in full remission F33.42 ; Anxiety F41.9 and 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 [facility] [id number] [place] [address] 30699- 6265 Apr, [facility] [id number] [place] [address] 36133- 2640 Apr, Acute cystitis without hematuria N30.00 ; Encounter for immunization Z23 and BMI 40.0-44.9, adult Z68.41 [facility] [address], [place] [address] Mar, [facility] [id number] [place] [address] 43361- 4489 Mar, [facility] [address], [place] [address] Feb, Type 2 diabetes mellitus with hyperglycemia, without long- term current use of insulin E11.65 ; Viral upper respiratory tract infection J06.9 ; Tobacco use Z72.0 ; BMI 40.0-44.9, adult Z68.41 and Food insecurity Z59.4 [facility] [address], [place] [address] Jan, Recurrent major depressive disorder, in full remission F33.42 and Anxiety F41.9 [facility] [address], [place] [address] Jan, Recurrent major depressive disorder, in full remission F33.42 [facility] [id number] [place] [address] 39318- 5938 November, [facility] [id number] [place] [address] 15263- 2944 November, Chronic migraine without aura without status migrainosus, not intractable G43.709 [facility] [id number] [place] [address] 80436- 0049 November, Type 2 diabetes mellitus with hyperglycemia, without long- term current use of insulin E11.65 ; Dysuria R30.0 ; Acute cystitis without hematuria N30.00 ; Lumbago with sciatica, unspecified side M54.40 ; Other chronic pain G89.29 ; Chronic obstructive pulmonary disease, unspecified COPD type J44.9 ; Chest pain, unspecified type R07.9 ; Absent pedal pulses R09.89 and BMI 40.0-44.9, adult Z68.41 [facility] [id number] [place] [address] 72318- 5381 Oct, Recurrent major depressive disorder, in full remission F33.42 and Anxiety F41.9 [facility] [id number] [place] [address] 31891- 0724 Sep, Other chronic pain G89.29 [facility] [id number] [place] [address] 42125- 3494 Aug, Other chronic pain G89.29 [facility] [id number] [place] [address] 10044- 2795 09 Aug, 2017 Chronic obstructive pulmonary disease, [...] and BMI 40.0-44.9, adult Z68.41 [facility] [id number] [place] [address] 93436- 5727 Aug, [facility] [id number] [place] [address] 43192- 0024 Jul, Type 2 diabetes mellitus with hyperglycemia, without long- term current use of insulin E11.65 [facility] [id number] [place] [address] 53353- 0198 Jul, Type 2 diabetes mellitus with hyperglycemia, without long- term current use of insulin E11.65 [facility] [id number] [place] [address] 22329- 7127 Jul, [facility] [address] [address]- 6396 Jul, Type 2 diabetes mellitus with hyperglycemia, [...] and BMI 40.0-44.9, adult Z68.41 [facility] [address] [place] [address] 48531- 0410 Jun, Migraine without status migrainosus, not intractable, unspecified migraine type G43.909 ; Hypercholesterolemia E78.00 and Lumbago with sciatica, unspecified side M54.40 [facility] [id number] [place] [address] 31765- 0332 Jun, Recurrent major depressive disorder, in full remission F33.42 and Anxiety F41.9 [facility] [id number] [place] [address] 31360- 5387 Jun, [facility] [address] 84095- 9856 May, Hypercholesterolemia E78.00 ; 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.29 ; Migraine without status migrainosus , not intractable, unspecified migraine type G43.909 and Lumbago with sciatica, unspecified side M54.40 [facility] [id number] [place] [address] 56814- 2585 14 May, 2017 Multinodular goiter E04.[address] [address]- [address]65 May, [address] [address]- 5373 Apr, Multinodular goiter E04.2 [facility] [address] 95[address]- 0631 Apr, Abnormal imaging of thyroid R94.6 ; Hypercholesterolemia E78.00 and 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.29 [place] [id number] [place] [address] 43383- 9049 Mar, Abnormal imaging of thyroid R94.6 [place] [id number] [place] [address] 23400- 1858 20 Mar, 2017 Chest wall mass R22.2 [place] [id number] [place] [address] 68050- 5444 07 Mar, 2017 Type 2 diabetes mellitus with hyperglycemia, without long- term current use of insulin E11.65 ; Gastroesophageal reflux disease with esophagitis K21.0 ; Hypercholesterolemia E78.00 ; Proteinuria, unspecified R80.9 ; 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.29 ; Chest wall mass R22.2 and Precordial pain R07.2 [place] [id number] [place] [address] 52304- 6204 Feb, Recurrent major depressive disorder, in full remission F33.42 [facility] [address] [place] [address] 39472- 1268 Feb, Recurrent major depressive disorder, in full remission F33.42 and Anxiety F41.9 [facility] [id number] [place] [address] 39036- 1926 Feb, [facility] [id number] [place] [address] [id number] Jan, Dental examination Z01.20 and Dental caries K02.9 [facility] [id number] [place] [address] 35510- 5816 Dec, [facility] [id number] [place] [address] 26418- 3485 Dec, [facility] [id number] [place] [address] 63132- 0790 Dec, Type 2 diabetes mellitus with hyperosmolarity [...] and Stress incontinence ( female) (male) N39.3 [facility] [id number] [place] [address] [id number] Dec, Dental caries K02.9 [facility] [address] [place] [address] 23733- 4662 November, [facility] [address] [place] [address] 10451- 9308 November, Essential hypertension I10 ; Other chronic pain G89.29 ; Gastroesophageal reflux disease without esophagitis K21.9 and Anxiety F41.9 [facility] [id number] [id number] November, Dental examination Z01.20 [facility] [address] [place] [address] 82837- 1535 Oct, Recurrent major depressive disorder, in full remission F33.42 [facility] [id number] [place] [address] 61534- 9671 Sep, Other chronic pain G89.29 [facility] [id number] [place] [address] 06442- 0252 Sep, Other chronic pain G89.29 and Bipolar 1 disorder F31.9 [facility] [id number] [place] [address] 56254- 1736 Aug, Other chronic pain G89.29 [facility] [id number] [place] [address] 34537- 8419 Jul, Gastroesophageal reflux disease without esophagitis K21.9 [facility] [id number] [place] [address] 89921- 4102 Jun, Migraine without status migrainosus, not intractable, unspecified migraine type G43.909 [facility] [address] [place] [address] 90615- 1096 Jun, Type 2 diabetes mellitus with hyperosmolarity [...] hypertension I10 and Hypercholesterolemia E78.00 [facility] [address] [place] [address] 83527- 1800 May, [facility] [id number] [place] [address] 85984- 9374 Apr, Edema, unspecified type R60.9 ; Type [...] Stress incontinence (female) (male) N39.3 [facility] [id number] [place] [address] 80992- 1492 Apr, [facility] [id number] [place] [address] 54449- 1085 Mar, Headache above the eye region R51 ; Lumbago with sciatica, unspecified side M54.40 ; Edema, unspecified type R60.9 and Migraine without status migrainosus, not intractable, unspecified migraine type G43.909 [facility] [id number] [place] [address] 06752- 2515 Mar, Chronic obstructive pulmonary disease, unspecified COPD type J44.9 ; Type 2 diabetes mellitus with hyperosmolarity without coma, without long-term current use of insulin E11.00 ; Other chronic pain G89.29 ; Migraine without status migrainosus, not intractable, unspecified migraine type G43.909 ; Left-sided chest wall pain R07.89 and Anxiety about health F41.8 [facility] [id number] [place] [address] 65793- 2318 Mar, [facility] [id number] [place] [address] 15209- 2810 Mar, [facility] [id number] [place] [address] 09692- 1733 Mar, [facility] [address], [place] [address]- 2061 Feb, [facility] [address] [place] [address] 50705- 7434 Feb, [facility] [id number] [place] [address] 62072- 3413 Feb, Chronic fatigue R53.82 ; Lumbago with sciatica, unspecified side M54.40 ; Gastroesophageal reflux disease with esophagitis K21.0 ; Other chronic pain G89.29 ; Morbid obesity due to excess calories E66.01 ; Migraine without status migrainosus, not intractable, unspecified migraine type G43.909 and Edema, unspecified type R60.9 [facility] [id number] [place] [address] [id number] Feb, Dental examination Z01.20 [facility] [id number] [place] [address] 08235- 6740 Feb, [facility] [id number] [place] [address] 56260- 4315 Feb, Type 2 diabetes mellitus with hyperosmolarity without coma, without long-term current use of insulin E11.00 ; Chronic fatigue R53.82 ; Gastroesophageal reflux disease with esophagitis K21.0 ; Morbid obesity due to excess calories E66.01 ; Lumbago with sciatica, unspecified side M54.40 and Other chronic pain G89.29 [facility] [address], [place] [address]- 3288 Feb, Type 2 diabetes mellitus with hyperosmolarity without coma, without long-term current use of insulin E11.00 ; Chronic fatigue R53.82 ; Gastroesophageal reflux disease with esophagitis K21.0 ; Morbid obesity due to excess calories E66.01 ; Lumbago with sciatica, unspecified side M54.40 and Other chronic pain G89.29 [facility] [address] [id number] Feb, Dental examination Z01.20 [facility] [id number] [address]- 1087 Jan, [facility] [address] [id number] [place] [address]- 2692 Mar, [facility] [address] [id number] [place] [id number] Feb, Dental examination V72.2 [facility] [address] [id number] [place] [address]- 3589 Oct, [facility] [address] [id number] [place] [address]- 5242 Oct, [facility] [address] [id number] [place] [address]- 8101 Aug, [facility] [address] [id number] [place] [address]- 5951 Aug, [facility] [address] [place] [address]- 2708 Jul, [facility] [address] [id number] [place] [address]- 5979 Jul, [facility] [address] [place] 3096 Jun, [facility] [address] [id number] [place]- 7750 Jun, [facility] [place] [facility] [address] [id number] [place] [address]- 8713 Jun, [facility] [address] [id number] [place] [address]- 2548 Jun, [facility] [place] [facility] [address] [facility] [id number] [place] [address]- 1679 Jun, [facility] [place] [facility] [address] [facility] [id number] [place] [address]- 9016 Jun, [facility] [place] [facility] [address] [facility] [id number] [place] [address]- 4406 Jun, [facility] [place] [facility] [address] [id number] [place] [address]- 1365 Jun, [facility] [place] [facility] [address] [id number] [place] [address]- 3228 Jun, [facility] [place] [facility] [address] [id number] [place] [address]- 1408 Jun, [facility] [place] [facility] [address] [id number] [place] [address]- 3013 Jun, [facility] [place] [facility] [address] [id number] [place] [address]- 8136 Jun, [facility] [place] [facility] [address] [id number] [place] [address]- 7002 Jun, [facility] [place] [facility] [address] [id number] [place] [address]- 3865 May, [facility] [place] [facility] [address] [id number] [place] [address]- 7601 May, [facility] [place] [facility] [address] [id number] [place] [address]- 2537 May, [facility] [place] [facility] [address] [id number] [place] [address]- 2721 May, [facility] [place] [facility] [address] [id number] [place] [address]- 9305 Apr, [facility] [place] [facility] [address] [id number] [place] [address]- 6083 Apr, [facility] [place] [facility] [address] [id number] [place] [address]- 4302 Apr, [facility] [place] [facility] [address] [id number] [place] [address]- 4221 Apr, [facility] [place] [facility] [address] [id number] [place] [address]- 6144 Apr, [facility] [place] [facility] [address] [id number], [place] [address]- 8756 Apr, [facility] [address] [facility] [id number], [place] [address]- 3481 Apr, [facility] [id number] [address]- 1032 Apr, [facility] [id number], [place] [address]- 5553 Apr, [facility] [address] [facility] [id number]- 4424 Apr, [facility] [id number], [place] [address]- 8502 Mar, [facility] [address] Mar, [facility] [address], [place] [address]- 0742 Feb, [facility] [id number], [place] [address]- 0849 Feb, [facility] [address] 4[address] Feb, [facility] [id number], [place] [address]- 9571 Feb, [facility] [id number], [place] [address]- 7025 Jan, [facility] [id number], [place] [address]- 0710 Jan, IMMUNIZATIONS Vaccine Route Administration Date Status FLULAVAL QUAD 0.5ML (6 MO & UP) 2018 IM Intramuscular Apr 20, 2018 Administered SOCIAL HISTORY Never Assessed REASON FOR VISIT Hospital f/u--Teodoro, Pt was seen at ER for UTI. Is currently on antibiotics PLAN OF CARE Activity Details Follow Up prn Reason: VITAL SIGNS Height 68 in 2018-04-20 Weight 280.9 lbs 2018-04-20 Temperature 98.7 degrees Fahrenheit 2018-04-20 Heart Rate 84 bpm 2018-04-20 Respiratory Rate 20 2018-04-20 BMI 42.71 kg/m2 2018-04-20 Blood pressure systolic 128 mmHg 2018-04-20 Blood pressure diastolic 76 mmHg 2018-04-20 MEDICATIONS Medication Instructions Dosage Frequency Start Date End Date Duration Status Abilify 10 mg Orally Once a day 1 tablet 24h Active Baby Aspirin 81 MG Orally Once a day 1 tablet 24h Active Bactrim DS 800-160 MG Orally Twice a day 1 tablet 12h Active Omeprazole 20MG TAKE ONE CAPSULE BY MOUTH ONCE DAILY Active Topiramate 50MG TAKE THREE TABLETS BY MOUTH TWICE DAILY Active Breo Ellipta 200-25 MCG/INH Inhalation Once a day 1 puff 24h Active Albuterol Sulfate HFA 108 (90 Base) MCG/ACT Inhalation every 4 hrs 2 puffs as needed 4h Active Gabapentin 600MG Orally Three times a day 2 tablets 8h Active Atorvastatin Calcium 10MG TAKE ONE TABLET BY MOUTH ONCE DAILY Active Chantix Starting Month Chao 0.5 MG X 11 & 1 MG X 42 as directed Mar, Active Propranolol HCl 20 mg Orally Twice a day 1 tablet 12h 30 days Active Blood Glucose Test - In Vitro 2 times a day DX: E11.65 test blood sugar Jul, Not-Taking Tizanidine HCl 2MG TAKE ONE TABLET BY MOUTH THREE TIMES DAILY NEEDED Active Lisinopril 10 mg Orally Once a day 1 tablet 24h Mar, Active Metformin HCl 1000 MG Orally Twice a day 1 tablet with meals 12h Active Sumatriptan Succinate 100 mg Orally Once a day 1 tablet as needed 24h 30 days Active Blood Glucose Monitor System w/Device as directed Jul, Not-Taking RESULTS No Results PROCEDURES Procedure Date Ordered Result Body Site [facility] VISIT ESTABLISHED PATIENT Apr 20, 2018 SINGLE IMMUNIZATION ADMIN Apr 20, 2018 FLULAVAL QUAD 0.5ML (6 MO & UP) 2017Apr 20, 2018 INSTRUCTIONS MEDICATIONS ADMINISTERED No Known Medications [...] and UTI 02/2017 Hospitalization History [facility] [place]- UTI 11/23/2017
--- NOTE | 2018-07-06 21:26 | Diagnostic Imaging Report ---
Clinical indication: Patient fell at home and complains of lateral foot and ankle pain. Exams: 1: X-ray of the left foot, 3 views. 2: X-ray of the left ankle, 3 views. Comparison: None. Findings: X-ray of the left foot and left ankle shows no acute fracture or dislocation. There is mild soft tissue swelling involving the left lower extremity. There is mild spurring of the inferior medial malleolus. There is a mildly hypertrophic calcaneal spur at the plantar attachment. The ankle mortise and syndesmotic joint are unremarkable. The left foot toes show no significant abnormality. Impression: 1: X-ray of the left foot and left ankle shows no acute fracture or dislocation. 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 Dictated by: Dictated on workstation # [id number]
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
[2018-07-06 22:37] VITALS: BP 140/79
== END 2018-07-06 22:37 | disposition home or self-care (01) ==
LOC: EDUNIT# 20:28 → ER 20:29
DX: S93.402A Sprain of unspecified ligament of left ankle, initial encounter (principal); M79.672 Pain in left foot; J44.9 Chronic obstructive pulmonary disease, unspecified; I10 Essential (primary) hypertension; E78.00 Pure hypercholesterolemia, unspecified; G43.909 Migraine, unspecified, not intractable, without status migrainosus; F17.210 Nicotine dependence, cigarettes, uncomplicated; K21.9 Gastro-esophageal reflux disease without esophagitis; E11.9 Type 2 diabetes mellitus without complications; F41.9 Anxiety disorder, unspecified; Z87.442 Personal history of urinary calculi; Z88.0 Allergy status to penicillin; Z98.51 Tubal ligation status; Z91.041 Radiographic dye allergy status; Z79.52 Long term (current) use of systemic steroids; Z79.84 Long term (current) use of oral hypoglycemic drugs; W20.8XXA Other cause of strike by thrown, projected or falling object, initial encounter
CPT/HCPCS: 73610; 73630

== ENCOUNTER 2018-09-28 16:12 | Observation (INO) | payer MEDICARE, MEDICAID ==
[~2018-09-28] VITALS: Ht 166.4 cm; Wt 132.6 kg
[~2018-09-28 16:12] MED LIST changes: -GABA600T2 PO; +GBPN600T PO
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
[2018-09-28 16:50] LABS: BASOPHILS % (AUTO) 0 % (0-10); EOSINOPHILS # (AUTO) 0.2 10^3/uL (0.0-0.3); EOSINOPHILS % (AUTO) 1 % (0-10); HEMATOCRIT 37 % (35-52); HEMOGLOBIN 12.6 G/DL (11.5-16.0); LYMPHOCYTES # (AUTO) 2.9 X 10^3 (1.0-4.0); LYMPHOCYTES % (AUTO) 23 % (12-44); MEAN CORPUSCULAR HEMOGLOBIN 27 PG (25-34); MEAN CORPUSCULAR HGB CONC 34 G/DL (32-36); MEAN CORPUSCULAR VOLUME 80 FL (80-99); MEAN PLATELET VOLUME 10.8 FL (7.4-10.4); MONOCYTES # (AUTO) 0.6 X 10^3 (0.0-1.0); MONOCYTES % (AUTO) 5 % (0-12); NEUTROPHILS # (AUTO) 8.8 X 10^3 (1.8-7.8); NEUTROPHILS % (AUTO) 71 % (42-75); PLATELET COUNT 339 10^3/uL (130-400); RED CELL DISTRIBUTION WIDTH 15.8 % (10.0-14.5); WHITE BLOOD COUNT 12.4 10^3/uL (4.3-11.0)
[2018-09-28] MEDS ORDERED: ONDANSETRON 4 MG/2 ML (SDV) Z0FRAN IVP ONE (17:00)
--- NOTE | 2018-09-28 17:00 | Diagnostic Imaging Report ---
Indication: Altered mental status Portable chest 4:52 PM Heart size and pulmonary vascular normal. Lungs are clear. There are no effusions or pneumothoraces. Impression: Negative chest Dictated by: Dictated on workstation # [id number]
[2018-09-28 17:06] LABS: FIBRIN DEGRADATION PRODUCTS 0.6 UG/ML (0.00-0.49); INR 0.9 (0.8-1.4); PROTHROMBIN TIME PATIENT 12.6 SEC (12.2-14.7)
--- NOTE | 2018-09-28 17:06 | Diagnostic Imaging Report ---
PROCEDURE: CT head without contrast, rule out stroke. TECHNIQUE: Multiple contiguous axial images were obtained through the brain without the use of intravenous contrast. INDICATION: Stroke. COMPARISON: CT head without contrast, 04/08/2016. FINDINGS: No CT evidence of a territorial infarction. Low-attenuation involving the anterior left temporal lobe is similar to the 2016 exam. No intracranial hemorrhage, mass effect, hydrocephalus or extra-axial fluid collections. Osseous structures are intact. The visualized paranasal sinuses and mastoids are clear. IMPRESSION: No acute intracranial CT findings. Findings discussed with Dr. Alejandro Pantoja at 5:02 p.m. on 09/28/2018. Dictated by: Dictated on workstation # [id number]
[2018-09-28 17:13] LABS: ALANINE AMINOTRANSFERASE 22 U/L (0-55); ALBUMIN 3.7 GM/DL (3.2-4.5); ALKALINE PHOSPHATASE 85 U/L (40-136); BILIRUBIN,TOTAL 0.2 MG/DL (0.1-1.0); BUN/CREATININE RATIO 12; CALCIUM 8.7 MG/DL (8.5-10.1); CARBON DIOXIDE 18 MMOL/L (21-32); CHLORIDE 108 MMOL/L (98-107); CREATININE SERUM 0.97 MG/DL (0.60-1.30); GFR ESTIMATED > 60; GLUCOSE 193 MG/DL (70-105); POTASSIUM 3.7 MMOL/L (3.6-5.0); SODIUM 135 MMOL/L (135-145)
[2018-09-28 17:18] LABS: BILIRUBIN,URINE NEGATIVE (NEGATIVE); CLARITY,URINE CLEAR; COLOR,URINE YELLOW; GLUCOSE, URINE (UA) NEGATIVE (NEGATIVE); KETONES,URINE NEGATIVE (NEGATIVE); LEUKOCYTE ESTERASE ,URINE 1+ (NEGATIVE); NITRITE,URINE NEGATIVE (NEGATIVE); PH,URINE 7 (5-9); PROTEIN,URINE NEGATIVE (NEGATIVE); UROBILINOGEN,URINE NORMAL (NORMAL)
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
[2018-09-28 17:43] LABS: BACTERIA,URINE NEGATIVE /HPF; RBC,URINE RARE /HPF
[2018-09-28] MEDS ORDERED: KETOROLAC 30 MG/ML VIAL IVP ONE (18:15)
[2018-09-28 18:31] LABS: AMPHETAMINE SCREEN, URINE NEGATIVE (NEGATIVE); BARBITURATE SCREEN URINE NEGATIVE (NEGATIVE); BENZODIAZEPINES SCREEN URINE NEGATIVE (NEGATIVE); CANNABINOID SCREEN, URINE NEGATIVE (NEGATIVE); COCAINE SCREEN URINE NEGATIVE (NEGATIVE); METHADONE STAT NEGATIVE (NEGATIVE); METHAMPHETAMINE SCREEN URINE S NEGATIVE (NEGATIVE); OPIATE SCREEN URINE NEGATIVE (NEGATIVE); OXYCODONE STAT NEGATIVE (NEGATIVE); PROPOXYPHENE STAT NEGATIVE (NEGATIVE); TRICYCLIC ANTIDEPRESSANTS SCRE NEGATIVE (NEGATIVE)
[2018-09-28 19:40] VITALS: BP 148/79
--- NOTE | 2018-09-28 19:40 | NUR ---
Received report from [place] [facility] med/police surgeon Cher. Pt to floor at 1940. EUGENE FUENTES admitted to room 412-1, with an admitting diagnosis of left sided weakness, headache, on 09/28/18 from ED via wheelchair, accompanied by staff.EUGENE FUENTES introduced to surroundings, call light, bed controls, phone, TV, temperature control, lights, meal times, smoking policy, visitor policy, side rail policy, bathrooms and showers. Patient Rights given to patient in the handbook. EUGENE FUENTES verbalizes understanding that [facility] is not responsible for the loss or damage to any personal effects or valuables that are kept in the patients posession during their hospitalization. EUGENE FUENTES verbalizes understanding of Interdisciplinary Patient Education. Patient and/or family were informed about the Rapid Response Team and its purpose.
[2018-09-28] MEDS ORDERED: ONDANSETRON 4 MG/2 ML (SDV) Z0FRAN IV PRN (20:00)
[2018-09-28] MEDS ORDERED: PROMETHAZINE INJ 25 MG/ML (PHENERGAN) AMP IM PRN (20:15)
[2018-09-28] MEDS ORDERED: HYDROmorphone 2 MG/ML VIAL (DILAUDID) IV PRN (20:15)
[2018-09-28] MEDS ORDERED: LOPERAMIDE 2 MG (IMODIUM) CAP PO PRN (20:15)
[2018-09-28] MEDS ORDERED: ALPRAZolam 0.25 MG (XANAX) TAB PO PRN (20:15)
[2018-09-28] MEDS ORDERED: CALCIUM CARBONATE 500 MG (TUMS) TAB.CHEW PO PRN (20:15)
[2018-09-28] MEDS ORDERED: MELATONIN 3 MG TABLET PO PRN (20:15)
[2018-09-28] MEDS ORDERED: ACETAMINOPHEN 500 MG TAB (TYLENOL) PO PRN (20:15)
[2018-09-28] MEDS ORDERED: diphenhydrAMINE 25 MG TAB (BENADRYL) PO PRN (20:15)
[2018-09-28] MEDS ORDERED: DOCUSATE SODIUM 100 MG (COLACE) CAP PO PRN (20:15)
[2018-09-28] MEDS ORDERED: fentaNYL INJECTION 100 MCG/2 ML AMP ONE (20:27)
[2018-09-28] MEDS ORDERED: ALPRAZolam 0.25 MG (XANAX) TAB ONE (20:28)
--- NOTE | 2018-09-28 20:43 | NUR ---
SPOKE WITH DR. POWERS ABOUT RESTARTING PTS HOME GABAPENTIN AND TIZANIDINE PER PT REQUEST. TELEPHONE ORDERS RECEIVED TO RESTART PTS GABAPENTIN 600MG TID AND TIZANIDINE 6MG HS. WILL CARRY OUT ORDERS AND CONTINUE TO MONITOR PT.
[2018-09-28] MEDS: fentaNYL INJECTION 100 MCG/2 ML AMP IVP PRN ×2 (20:48→21:54)
[2018-09-28] MEDS: GABAPENTIN 600 MG (NEURONTIN) TAB PO SCH (21:54)
[2018-09-28 22:00] VITALS: BP 143/76
[2018-09-28 23:00] VITALS: BP 117/78
[2018-09-29] VITALS: BP 109/71
[2018-09-29 01:00] VITALS: BP 115/74
[2018-09-29] MEDS: KETOROLAC 30 MG/ML VIAL IVP PRN ×3 (01:37→13:24)
[2018-09-29 04:00] VITALS: BP 126/64
[2018-09-29 06:09] LABS: CHOLESTEROL 176 MG/DL (< 200); HDL CHOLESTEROL 47 MG/DL (40-60); TRIGLYCERIDES 99 MG/DL (<150); VLDL CHOLESTEROL 20 MG/DL (5-40)
[2018-09-29 08:00] VITALS: BP 104/58
[2018-09-29] MEDS ORDERED: ASPIRIN 81 MG CHEW (CHILDREN'S ASA) PO SCH (09:00)
[2018-09-29] MEDS: GABAPENTIN 600 MG (NEURONTIN) TAB PO SCH (09:25)
--- NOTE | 2018-09-29 09:31 | Diagnostic Imaging Report ---
PROCEDURE: US carotid duplex, bilateral. TECHNIQUE: Multiple real-time grayscale images were obtained over the carotid arteries in various projections, bilaterally. Additional spectral analysis and color Doppler duplex images were also obtained. INDICATION: Left-sided weakness. The velocities are normal bilaterally within the carotid systems. There is some dampened velocities in the left vertebral artery which shows some high resistance. No high-grade stenosis or occlusion is seen. Both vertebral arteries do show antegrade flow. Parameters based on the consensus panel Terrell-Scale and Doppler ultrasound criteria published May 2003, Radiology, Volume 229. DOPPLER (peak systolic velocity M/S Right Left CCA 1.40 1.30 ICA Proximal .55 .83 ICA Mid .60 .74 ICA Distal .63 .72 RATIO .46 .65 ECA .80 1.1 VERT .49 .24 IMPRESSION: No evidence of a hemodynamically significant stenosis. Dictated by: Dictated on workstation # [id number]
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
[2018-09-29] MEDS ORDERED: OMEP20CA12 PO (09:54)
[2018-09-29] MEDS ORDERED: ARIP10TA17 PO (09:54)
[2018-09-29] MEDS ORDERED: RT-ALBUINH INH (09:54)
--- NOTE | 2018-09-29 09:55 | NUR ---
SPOKE WITH THE PATIENT ABOUT HER MEDICATIONS. WE WENT OVER THE EXT MED HX AND SHE VERIFIED HOW SHE TAKES THEM. IN ADDITION TO THE EXT MED HX [facility] FILLED: 06-23-18 LIPITOR 10MG DAILY #90 06-23-18 TIZANIDINE 2MG TID PRN #270 06-05-18 PROPRANOLOL 20MG BID #180 SHE FILLED METFORMIN 1000MG BID 08-19-18 #180 HOWEVER SHE STATES SHE HAS STOPPED TAKING THIS IN THE PAST WEEK OR SO DUE TO DIARRHEA. SHE HAS BEEN TAKING THIS FOR QUITE SOME TIME AND HAS NOT HAD TROUBLE BUT WHEN THE DIARRHEA STARTED AND SHE STOPPED THE METFORMIN THE DIARRHEA WENT AWAY. SHE IS GOING TO DISCUSS WITH HER DRElvia BEFORE RESTARTING THE METFORMIN. I DID NOT INCLUDE IT ON THE MED REC AT THIS TIME. PATIENT TAKES ASPIRIN 81MG DAILY OTC. PATIENT THOUGHT SHE WAS TAKING 2 OF THE 300MG GABAPENTIN TID HOWEVER [facility] FILLED THE 600MG TABLETS AND THE DIRECTIONS ARE TO TAKE 2 TID. SHE CALLED HOME AND HAD HER DOUBLE CHECK AND THE SAME RESULTS WERE FOUND. I SPOKE WITH [facility] AND THOUGH THEY HAVE A SCRIPT FOR 300MG CAPSULES ON FILE IT WAS NEVER FILLED AND IT WAS FROM JULY 2017. THE PATIENT HAS BEEN FILLING THE 600MG TABLETS FOR THE PAST YEAR. Addendum: 09/29/18 at 0959 by JOSHUA RICH [facility] SHE STATES SHE IS SUPPOSED TO TAKE BREO HOWEVER SHE CAN NOT AFFORD IT AND HAS BEEN OUT OF IT FOR AWHILE. [facility] LAST FILLED BREO 200 IN JUNE FOR 1 INHALER. SHE STATES SHE DOES HAVE AN ALBUTEROL INHALER SHE USES PRN BUT HAS BEEN USING MORE FREQUENTLY RECENTLY SINCE SHE IS OUT OF THE BREO. [facility] FILLED VENTOLIN IN NOVEMBER 2017.
[2018-09-29] MEDS ORDERED: RT-ALBUTEROL SULF 2.5 MG/3 ML PRE-MIX VIAL INH PRN (11:00)
[2018-09-29] MEDS ORDERED: toPIRamate 25 MG (TOPAMAX) TAB PO SCH (11:06)
[2018-09-29] MEDS ORDERED: toPIRamate 100 MG (TOPAMAX) TAB PO SCH (11:15)
[2018-09-29] MEDS ORDERED: FURO20TA4 PO (11:21)
[2018-09-29] MEDS ORDERED: NYST1POW24 MC (11:47)
[2018-09-29] MEDS ORDERED: NYST15CR TP (11:47)
[2018-09-29] MEDS ORDERED: ASPI-808 PO (11:47)
[2018-09-29 12:00] VITALS: BP 139/68
[2018-09-29] MEDS ORDERED: GABAPENTIN 600 MG (NEURONTIN) TAB PO SCH (13:00)
--- NOTE | 2018-09-29 15:06 | Consultation-Cardiology ---
HPI-Cardiology Cardiology Consultation: Date of Consultation 09/29/18 Date of Admission Attending Physician Shawna Powers DO Admitting Physician Avis Parrish MD Consulting Physician Derek CHRISTIAN MD HPI: Time Seen by a Provider: 10:00 Chief Complaint: Possible TIA This is a 48-year-old lady who presented to the ER with sudden onset of left- sided weakness and dysarthria. She also had significant headache. She has history of migraine as well. She is a active smoker who recently quit. The patient has history of palpitations in the recent past. Neurological symptoms resolved during the hospitalization. Review of Systems-Cardiology Review of Systems Constitutional: As described under HPI; No As described under HPI, No no symptoms reported, No chills, No fever, No lightheadedness Eyes: No As described under HPI, No no symptoms reported, No blindness, No blurred vision, No contact lenses, No drainage, No decreased acuity, No foreign body sensation, No pain, No vision change Ears/Nose/Throat: No As described under HPI, No no symptoms reported, No chronic hearing loss, No ear discharge, No ear pain, No nasal drainage, No ulcerations Respiratory: No no symptoms reported; As described under HPI; No As described under HPI, No cough, No orthopnea, No shortness of breath, No SOB with excertion Cardiovascular: No no symptoms reported; As described under HPI; No As described under HPI, No chest pain, No edema, No irregular heart rate, No lightheadedness; palpitations Gastrointestinal: No no symptoms reported, No As described under HPI, No abdomen distended, No abdominal pain, No blood streaked bowels, No constipation , No diarrhea, No nausea, No vomiting, No stool coloration changes Genitourinary: No As described under HPI, No burning, No dysuria, No discharge , No frequency, No flank pain, No hematuria, No urgency : No Skin: No rash, No skin related problems, No ulcerations Psychiatric/Neurological: No anxiety, No depression, No seizure, No focal weakness, No syncope Hematologic: No bleeding abnormalities SDK-Osspgg-Jfshuy Hx Patient Social History Marrital Status: Employed/Student: employed Alcohol Use: Denies Use Recreational Drug Use: No Smoking Status: Former Smoker Type Used: Cigarettes 2nd Hand Smoke Exposure: Yes Recent Foreign Travel: No Recent Infectious Disease Expo: No Hospitalization with Isolation: Denies Immunizations Up To Date Date of Pneumonia Vaccine: Apr 18, 2018 Date of Influenza Vaccine: Apr 18, 2018 Past Medical History PMH As described under Assessment. Family Medical History Family History: Myocardial infarction GRANDMOTHER AUNT GRANDFATHER Seizure disorder Stroke 19 MOTHER GRANDMOTHER AUNT MATERNAL GRANDFATHER Allergies and Home Medications Allergies Coded Allergies: Penicillins (Unverified Allergy, Mild, 01/12/14) povidone-iodine (Unverified Allergy, Mild, 01/12/14) Home Medications Albuterol Sulfate 1 Puff Puff, 2 PUFF INH QID PRN for SHORTNESS OF BREATH, ( Reported) Aripiprazole 10 Mg Tablet, 10 MG PO DAILY, (Reported) Aspirin 325 Mg Tablet, 325 MG PO DAILY Prescribed by: SHAWNA POWERS on 09/29/18 114 Atorvastatin Calcium 10 Mg Tablet, 10 MG PO HS, (Reported) LAST FILLED #90 18 Gabapentin 600 Mg Tablet, 1,200 MG PO TID, (Reported) TAKES 2 (600MG) TABLETS Nystatin 15 Gm Cream..g., 15 GM TP BID Prescribed by: SHAWNA POWERS on 09/29/18 114 Nystatin 1 Each Powder.ea., 1 EACH MC BID Prescribed by: SHAWNA POWERS on 09/29/18 114 Omeprazole 20 Mg Capsule.dr, 20 MG PO HS, (Reported) Propranolol HCl 20 Mg Tablet, 20 MG PO BID, (Reported) LAST FILLED #180 06-05-18 Tizanidine HCl 2 Mg Tablet, 2 MG PO TID PRN for MUSCLE SPASMS, (Reported) Topiramate 50 Mg Tablet, 150 MG PO BID, (Reported) TAKES 3 (50MG) TABLETS Patient Home Medication List Home Medication List Reviewed: Yes Physical Exam-Cardiology Physical Exam Vital Signs/I&O 09/29/18 09/29/18 09/29/18 09/29/18 07:00 08:00 08:00 12:00 Temp 97.0 97.1 Pulse 75 86 78 Resp 18 20 B/P (MAP) 104/58 (73) 139/68 (91) Pulse Ox 98 98 98 O2 Delivery Room Air Room Air Room Air 09/29/18 14:25 B/P (MAP) 09/29/18 00:00 Intake Total 240 ml Output Total 300 ml Balance -60 ml Capillary Refill : Less Than 3 Seconds Constitutional: appears stated age, AAO x 3; No apparent distress; well- developed, well-nourished HEENT: PERRL; No normal ENT inspection, No TMs normal, No pharynx normal, No scleral icterus (R), No scleral icterus (L), No pale conjunctivae (R), No pale conjunctivae (L), No photophobia, No TM abnormal (R), No TM abnormal (L), No pharyngeal erythema, No tonsillar exudate, No other, No discharge, No EOMI; hearing is well preserved; No hard of hearing; oral hygience is good; No ulceration, No xanthelasmas are seen Neck: No non-tender, No full range of motion, No supple, No normal inspection, No carotid bruit, No limited range of motion, No lymphadenopathy (R), No lymphadenopathy (L), No tender lateral, No tender midline, No thyromegaly, No other; carotid pulses are 2 + bilaterally; No with good upstrokes Respiratory: No accessory muscle use, No respiratory distress, No chest tender , No chest expansion is symmetric; chest is bilaterally symmetric; No lungs clear to percussion; lungs clear to auscultation; No crackles, No rhonchi, No rales, No stridor, No wheezing, No pleural rub, No other Cardiovascular: regular rate-rhythm; No irregularly irregular, No extra beats, No parasternal heave is noted, No JVD, No edema, No bradycardia, No tachycardia , No point of maximal impulse, No cardiac thrills are palpable; S1 and S2; No gallop/S3, No gallop/S4, No diastolic murmur, No systolic murmur, No friction rub, No click, No other Gastrointestinal: No tender, No soft, No round, No distended, No pulsatile mass , No organomegaly, No guarding, No rebound, No tenderness, No hernia, No mass, No audible bowel sounds, No abnormal bowel sounds, No abdominal bruits, No spleenomegaly, No other Rectal: deferred Extremities: No normal range of motion, No non-tender, No normal inspection, No pedal edema, No calf tenderness, No normal capillary refill, No pelvis stable , No calf tenderness, No inflammation, No pedal edema, No slow capillary refill , No swelling, No other, No abrasion, No clubbing, No cyanosis, No ecchymosis, No laceration, No no lower extremity edema bilateral, No significant edema, No tenderness, No wound Neurologic/Psychiatric: no motor/sensory deficits, alert, normal mood/affect, oriented x 3, power is 5/5 both on sides Skin: No normal color, No warm/dry, No cyanosis, No cool, No diaphoresis, No damp, No ecchymosis, No jaundice, No mottled, No pallor, No rash, No tattoos/ piercings, No ulcerations, No rash on exposed areas, No ulcerations on exposed areas, No other Data Review Labs Laboratory Tests 09/29/18 05:27: Triglycerides Level 99, Cholesterol Level 176, LDL Cholesterol Direct 123, VLDL Cholesterol 20, HDL Cholesterol 47 ECG Impression ECG Initial ECG Rhythm: Normal Sinus Initial ECG Impression: Normal A/P-Cardiology Assessment/Admission Diagnosis Possible TIA, Migraine, Hyperlipidemia, Irregular heart rhythm, Active smoking Plan TIA: CT scan did not show any hemorrhagic stroke. Patient could not get an MRI done due to claustrophobia. Therefore TIA/CVA could not be confirmed. Telemetry during hospitalization did not show atrial fibrillation. Echocardiogram has been requested. We'll request an event monitor for 30 days followed by an implantable loop recorder. Migraine: TIA like symptoms could be associated with severe migraine. I will defer to the primary team. Active smoking: Smoking cessation was strongly recommended. Hyperlipidemia: Start statin therapy. Irregular heart rhythm: Suspicion for atrial fibrillation. Event monitor for 30 days. If no atrial fibrillation, will recommend an implantable loop recorder. Carotid ultrasound as an outpatient. Thank you for your consultation. Please call me if you have any questions. Julieta Christian MD, FACP, FACC, FSCAI, FHRS, CCDS Interventional Cardiology Cardiac Electrophysiology Vascular Medicine and Endovascular Interventions Clinical Quality Measures DVT/VTE Risk/Contraindication: Risk Factor Score Per Nursin RFS Level Per Nursing on Admit: 2=Moderate Stroke: Date of last known well: Sep 28, 2018 Derek CHRISTIAN MD Sep 29, 2018 15:06
[2018-09-29] MEDS ORDERED: ATORVASTATIN 10 MG (LIPITOR) TABLET PO SCH (21:00)
[2018-09-29] MEDS ORDERED: PROPRANOLOL 20 MG (INDERAL) TABLET PO SCH (21:00)
[2018-09-30] MEDS ORDERED: ASPIRIN E.C. 81 MG (ECOTRIN) TAB PO SCH (09:00)
[2018-09-30] MEDS ORDERED: PANTOPRAZOLE 20 MG TABLET (PROTONIX) PO SCH (21:00)
== END 2018-09-29 13:25 | disposition home or self-care (01) ==
LOC: EDUNIT# 16:12 → ER 16:14 → 4TH 18:06
PROVIDERS: ADMIT Internal Medicine; ATTEND Internal Medicine
DX: G43.909 Migraine, unspecified, not intractable, without status migrainosus (principal); F17.210 Nicotine dependence, cigarettes, uncomplicated; E78.5 Hyperlipidemia, unspecified; I49.9 Cardiac arrhythmia, unspecified; R47.1 Dysarthria and anarthria; R53.1 Weakness; Z88.0 Allergy status to penicillin; E66.01 Morbid (severe) obesity due to excess calories; R00.2 Palpitations; Z68.42 Body mass index [BMI] 45.0-49.9, adult; F99 Mental disorder, not otherwise specified; G47.30 Sleep apnea, unspecified; E78.00 Pure hypercholesterolemia, unspecified; I10 Essential (primary) hypertension; J44.9 Chronic obstructive pulmonary disease, unspecified; E11.9 Type 2 diabetes mellitus without complications; Z79.84 Long term (current) use of oral hypoglycemic drugs; F41.9 Anxiety disorder, unspecified; Z87.820 Personal history of traumatic brain injury
CPT/HCPCS: 36415; 70450; 71045; 80053; 80061; 80306; 81000; 82962; 84484; 85025; 85379; 85610; 85730; 93005; 93041; 93306; 93880; G0378

== ENCOUNTER 2018-09-29 13:31 | Outpatient (RCR) | payer MEDICARE, MEDICAID ==
[~2018-09-29 13:31] MED LIST changes: +ASPI-808 PO; +FURO20TA4 PO; +NYST15CR TP; +NYST1POW24 MC; +RT-ALBUINH INH
[2018-10-01] MEDS ORDERED: TRAM-42 PO (17:35)
[2018-10-01] MEDS ORDERED: CYCL10TA9 PO (17:35)
[2018-10-04] MEDS ORDERED: APIX5TAB PO (16:50)
[2018-10-08] MEDS ORDERED: PANT40SU PO (16:26)
[2018-12-06] MEDS ORDERED: NAPR-1071 PO (19:30)
== END 2018-12-28 | disposition home or self-care (01) ==
LOC: CARD 13:31
PROVIDERS: ATTEND Internal Medicine Interventional Cardiology
DX: R00.2 Palpitations (principal)

== ENCOUNTER 2018-10-01 15:12 | Emergency (ER) | payer MEDICARE, MEDICAID ==
[~2018-10-01] VITALS: Ht 172.7 cm; Wt 136.1 kg
[2018-10-01] MEDS ORDERED: NS IV 1000 ML 1,000 ML IV ONE (16:29)
[2018-10-01] MEDS ORDERED: ORPHENADRINE 60 MG/2 ML (NORFLEX) AMP IV ONE (16:30)
[2018-10-01] MEDS ORDERED: KETOROLAC 30 MG/ML VIAL IVP ONE (16:30)
[2018-10-01 16:36] LABS: BASOPHILS # (AUTO) 0.1 10^3/uL (0.0-0.1); BASOPHILS % (AUTO) 1 % (0-10); EOSINOPHILS # (AUTO) 0.3 10^3/uL (0.0-0.3); EOSINOPHILS % (AUTO) 2 % (0-10); HEMATOCRIT 40 % (35-52); HEMOGLOBIN 12.8 G/DL (11.5-16.0); LYMPHOCYTES # (AUTO) 3.3 X 10^3 (1.0-4.0); LYMPHOCYTES % (AUTO) 29 % (12-44); MEAN CORPUSCULAR HEMOGLOBIN 26 PG (25-34); MEAN CORPUSCULAR HGB CONC 32 G/DL (32-36); MEAN CORPUSCULAR VOLUME 81 FL (80-99); MEAN PLATELET VOLUME 10.9 FL (7.4-10.4); MONOCYTES # (AUTO) 0.6 X 10^3 (0.0-1.0); MONOCYTES % (AUTO) 6 % (0-12); NEUTROPHILS % (AUTO) 62 % (42-75); PLATELET COUNT 374 10^3/uL (130-400); RED CELL DISTRIBUTION WIDTH 15.9 % (10.0-14.5); WHITE BLOOD COUNT 11.3 10^3/uL (4.3-11.0)
[2018-10-01] MEDS ORDERED: methylPREDNISolone 40 MG/ML (Solu-MEDROL) VIAL IV ONE (16:45)
[2018-10-01 16:47] LABS: CALCIUM 8.9 MG/DL (8.5-10.1); CREATININE SERUM 1.09 MG/DL (0.60-1.30); MAGNESIUM 2.2 MG/DL (1.8-2.4)
[2018-10-01 17:08] LABS: TSH (THYROID ANALYZER) 1.1 UIU/ML (0.35-4.94)
[2018-10-01] MEDS ORDERED: CYCLOBENZAPRINE 10 MG (FLEXERIL) TAB PO ONE (17:30)
[2018-10-01] MEDS ORDERED: TRAM-42 PO (17:35)
[2018-10-01] MEDS ORDERED: CYCL10TA9 PO (17:35)
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
[2018-10-01 18:10] VITALS: BP 145/98
== END 2018-10-01 18:10 | disposition home or self-care (01) ==
LOC: EDUNIT# 15:12 → ER 15:13
DX: R51 Headache (principal); G47.30 Sleep apnea, unspecified; J44.9 Chronic obstructive pulmonary disease, unspecified; E78.00 Pure hypercholesterolemia, unspecified; I10 Essential (primary) hypertension; K21.9 Gastro-esophageal reflux disease without esophagitis; E11.9 Type 2 diabetes mellitus without complications; F41.9 Anxiety disorder, unspecified; Z87.19 Personal history of other diseases of the digestive system; Z87.448 Personal history of other diseases of urinary system; Z86.69 Personal history of other diseases of the nervous system and sense organs; Z87.820 Personal history of traumatic brain injury; Z82.49 Family history of ischemic heart disease and other diseases of the circulatory system; Z88.0 Allergy status to penicillin; Z91.041 Radiographic dye allergy status; Z87.891 Personal history of nicotine dependence; Z79.51 Long term (current) use of inhaled steroids; Z79.82 Long term (current) use of aspirin; Z87.442 Personal history of urinary calculi; Z98.51 Tubal ligation status; Z90.6 Acquired absence of other parts of urinary tract
CPT/HCPCS: 36415; 80048; 82306; 83735; 84443; 85025

== ENCOUNTER 2018-10-04 12:16 | Emergency (ER) | payer MEDICARE, MEDICAID ==
[~2018-10-04] VITALS: Ht 165.1 cm; Wt 131.5 kg
[~2018-10-04 12:16] MED LIST changes: +TRAM-42 PO
[2018-10-04] MEDS ORDERED: ASPIRIN 81 MG CHEW (CHILDREN'S ASA) PO ONE (12:30)
[2018-10-04] MEDS ORDERED: NITROGLYCERIN 0.4 MG SL TABS BTL 25'S SL ONE (12:31)
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
[2018-10-04] MEDS ORDERED: IOHEXOL 350 MG/ML 150 ML (OMNIPAQUE 350) VIAL IV ONE (13:15)
[2018-10-04] MEDS ORDERED: HOLD METFORMIN - RECEIVED CONTRAST 20 ML VIAL IV SCH (13:15)
[2018-10-04 13:29] LABS: BASOPHILS # (AUTO) 0.1 10^3/uL (0.0-0.1); BASOPHILS % (AUTO) 1 % (0-10); EOSINOPHILS # (AUTO) 0.2 10^3/uL (0.0-0.3); EOSINOPHILS % (AUTO) 2 % (0-10); HEMATOCRIT 37 % (35-52); HEMOGLOBIN 11.9 G/DL (11.5-16.0); LYMPHOCYTES # (AUTO) 3.5 X 10^3 (1.0-4.0); LYMPHOCYTES % (AUTO) 32 % (12-44); MEAN CORPUSCULAR HEMOGLOBIN 26 PG (25-34); MEAN CORPUSCULAR HGB CONC 32 G/DL (32-36); MEAN CORPUSCULAR VOLUME 82 FL (80-99); MONOCYTES # (AUTO) 0.7 X 10^3 (0.0-1.0); MONOCYTES % (AUTO) 6 % (0-12); NEUTROPHILS # (AUTO) 6.7 X 10^3 (1.8-7.8); NEUTROPHILS % (AUTO) 60 % (42-75); PLATELET COUNT 353 10^3/uL (130-400); RED CELL DISTRIBUTION WIDTH 15.4 % (10.0-14.5); WHITE BLOOD COUNT 11.2 10^3/uL (4.3-11.0)
[2018-10-04] MEDS ORDERED: NS IV 1000 ML 1,000 ML IV SCH (13:45)
[2018-10-04 13:50] LABS: PROTHROMBIN TIME PATIENT 12.6 SEC (12.2-14.7)
[2018-10-04 13:57] LABS: ALANINE AMINOTRANSFERASE 20 U/L (0-55); ALBUMIN 3.7 GM/DL (3.2-4.5); ALKALINE PHOSPHATASE 90 U/L (40-136); BILIRUBIN,TOTAL 0.3 MG/DL (0.1-1.0); BUN/CREATININE RATIO 9; CALCIUM 9.1 MG/DL (8.5-10.1); CARBON DIOXIDE 18 MMOL/L (21-32); CHLORIDE 112 MMOL/L (98-107); CREATININE SERUM 1.09 MG/DL (0.60-1.30); GFR ESTIMATED 54; GLUCOSE 98 MG/DL (70-105); MAGNESIUM 1.8 MG/DL (1.8-2.4); POTASSIUM 3.9 MMOL/L (3.6-5.0); SODIUM 141 MMOL/L (135-145); TOTAL PROTEIN 6.8 GM/DL (6.4-8.2)
[2018-10-04 14:05] LABS: MYOGLOBIN SERUM 54.8 NG/ML (10.0-92.0)
--- NOTE | 2018-10-04 14:37 | Diagnostic Imaging Report ---
INDICATION: Chest pain. EXAMINATION: Chest, 1 view. COMPARISON: 09/28/2018. FINDINGS: The heart and mediastinal silhouette are normal in appearance. The lungs are clear. There is no pneumothorax or pleural fluid. IMPRESSION: Negative chest. Dictated by: Dictated on workstation # [id number]
[2018-10-04] MEDS ORDERED: APIX5TAB PO (16:50)
[2018-10-04 17:06] VITALS: BP 122/75
== END 2018-10-04 17:10 | disposition home or self-care (01) ==
LOC: EDUNIT# 12:16 → ER 12:18
DX: R07.9 Chest pain, unspecified (principal); I48.91 Unspecified atrial fibrillation; G47.30 Sleep apnea, unspecified; J44.9 Chronic obstructive pulmonary disease, unspecified; E78.00 Pure hypercholesterolemia, unspecified; I10 Essential (primary) hypertension; K21.9 Gastro-esophageal reflux disease without esophagitis; E11.9 Type 2 diabetes mellitus without complications; F41.9 Anxiety disorder, unspecified; G43.909 Migraine, unspecified, not intractable, without status migrainosus; Z87.820 Personal history of traumatic brain injury; Z87.442 Personal history of urinary calculi; Z82.49 Family history of ischemic heart disease and other diseases of the circulatory system; Z88.0 Allergy status to penicillin; Z91.041 Radiographic dye allergy status; Z79.51 Long term (current) use of inhaled steroids; Z86.73 Personal history of transient ischemic attack (TIA), and cerebral infarction without residual deficits; Z79.82 Long term (current) use of aspirin; Z77.22 Contact with and (suspected) exposure to environmental tobacco smoke (acute) (chronic); Z98.890 Other specified postprocedural states; Z98.51 Tubal ligation status
CPT/HCPCS: 36415; 71045; 80053; 83735; 83874; 83880; 84484; 85025; 85610; 85730; 93005; 93041; 96360

== ENCOUNTER 2018-10-08 13:30 | Emergency (ER) | payer MEDICARE, MEDICAID ==
[~2018-10-08] VITALS: Ht 165.1 cm; Wt 131.5 kg
[~2018-10-08 13:30] MED LIST changes: +APIX5TAB PO
[2018-10-08] MEDS ORDERED: fentaNYL INJECTION 100 MCG/2 ML AMP IVP ONE (13:45)
[2018-10-08 14:00] LABS: BASOPHILS # (AUTO) 0.1 10^3/uL (0.0-0.1); BASOPHILS % (AUTO) 1 % (0-10); EOSINOPHILS # (AUTO) 0.2 10^3/uL (0.0-0.3); EOSINOPHILS % (AUTO) 1 % (0-10); HEMATOCRIT 38 % (35-52); HEMOGLOBIN 12.5 G/DL (11.5-16.0); LYMPHOCYTES % (AUTO) 24 % (12-44); MEAN CORPUSCULAR HEMOGLOBIN 27 PG (25-34); MEAN CORPUSCULAR HGB CONC 33 G/DL (32-36); MEAN CORPUSCULAR VOLUME 80 FL (80-99); MEAN PLATELET VOLUME 10.9 FL (7.4-10.4); MONOCYTES # (AUTO) 0.7 X 10^3 (0.0-1.0); MONOCYTES % (AUTO) 6 % (0-12); NEUTROPHILS # (AUTO) 8.4 X 10^3 (1.8-7.8); NEUTROPHILS % (AUTO) 68 % (42-75); PLATELET COUNT 340 10^3/uL (130-400); RED CELL DISTRIBUTION WIDTH 15.5 % (10.0-14.5); WHITE BLOOD COUNT 12.3 10^3/uL (4.3-11.0)
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
[2018-10-08 14:21] LABS: ALANINE AMINOTRANSFERASE 18 U/L (0-55); ALBUMIN 3.9 GM/DL (3.2-4.5); ALKALINE PHOSPHATASE 81 U/L (40-136); BILIRUBIN,TOTAL 0.3 MG/DL (0.1-1.0); BUN/CREATININE RATIO 11; CALCIUM 8.9 MG/DL (8.5-10.1); CARBON DIOXIDE 17 MMOL/L (21-32); CHLORIDE 112 MMOL/L (98-107); CREATININE SERUM 0.94 MG/DL (0.60-1.30); GFR ESTIMATED > 60; GLUCOSE 134 MG/DL (70-105); MAGNESIUM 1.9 MG/DL (1.8-2.4); POTASSIUM 3.6 MMOL/L (3.6-5.0); SODIUM 137 MMOL/L (135-145)
[2018-10-08 14:24] LABS: INR 1.1 (0.8-1.4); PROTHROMBIN TIME PATIENT 14.1 SEC (12.2-14.7)
[2018-10-08 14:28] LABS: MYOGLOBIN SERUM 36.7 NG/ML (10.0-92.0)
--- NOTE | 2018-10-08 14:28 | Diagnostic Imaging Report ---
Portable erect AP chest at 1:55 PM. Indication: Chest pain. The heart size is within normal limits and stable when compared to 10/04/2018. The lungs remain clear. There is still no sign of failure, pneumonia or pleural effusion to indicate an acute abnormality. The mediastinum is not widened. The osseous structures are intact. The orthopedic hardware overlying the right humeral head seen previous is partially visualized on this exam. Impression: There is no evidence for active disease. Dictated by: Dictated on workstation # [id number]
--- NOTE | 2018-10-08 14:43 | NUR ---
PATIENT STATES HER PAIN LEVEL DID NOT IMPROVE WITH THE FENTANYL .
[2018-10-08] MEDS ORDERED: LIDOCAINE 2% VISCOUS 15 ML UDC PO ONE (14:45)
[2018-10-08] MEDS ORDERED: ANTACID SUSP 30 ML UDC (MYLANTA) PO ONE (14:45)
--- NOTE | 2018-10-08 15:29 | NUR ---
PATIENT STATES THE GI COCKTAIL HELPED HER ABDOMINAL PAIN BUT SHE CONTINUES TO HAVE THE "KNOT IN MY CHEST".
[2018-10-08] MEDS ORDERED: morphine INJ 10 MG/ML 1ML (SYR OR VIAL) IVP ONE (15:45)
--- NOTE | 2018-10-08 15:54 | NUR ---
BLOOD DRAWN FOR REPEAT TROPONIN. PATIENT STATES THE MORPHINE TOOK HER CHEST PAIN ALMOST COMPLETELY AWAY.
[2018-10-08] MEDS ORDERED: PANT40SU PO (16:26)
[2018-10-08 16:43] VITALS: BP 125/78
== END 2018-10-08 16:43 | disposition home or self-care (01) ==
LOC: EDUNIT# 13:30 → ER 13:31
DX: R10.13 Epigastric pain (principal); R07.89 Other chest pain; G47.30 Sleep apnea, unspecified; J44.9 Chronic obstructive pulmonary disease, unspecified; E78.00 Pure hypercholesterolemia, unspecified; G43.909 Migraine, unspecified, not intractable, without status migrainosus; I10 Essential (primary) hypertension; I48.91 Unspecified atrial fibrillation; K21.9 Gastro-esophageal reflux disease without esophagitis; E11.9 Type 2 diabetes mellitus without complications; F41.9 Anxiety disorder, unspecified; Z79.01 Long term (current) use of anticoagulants; Z95.9 Presence of cardiac and vascular implant and graft, unspecified; Z82.49 Family history of ischemic heart disease and other diseases of the circulatory system; Z90.721 Acquired absence of ovaries, unilateral; Z87.820 Personal history of traumatic brain injury; Z86.73 Personal history of transient ischemic attack (TIA), and cerebral infarction without residual deficits; Z88.0 Allergy status to penicillin; Z91.041 Radiographic dye allergy status; Z79.51 Long term (current) use of inhaled steroids; Z79.82 Long term (current) use of aspirin; Z87.891 Personal history of nicotine dependence; Z87.442 Personal history of urinary calculi; Z98.51 Tubal ligation status; Z98.890 Other specified postprocedural states; Z90.6 Acquired absence of other parts of urinary tract
CPT/HCPCS: 36415; 71045; 80053; 83735; 83874; 84484; 85025; 85610; 85730; 93005

== ENCOUNTER 2018-12-06 18:06 | Emergency (ER) | payer MEDICARE, MEDICAID ==
[~2018-12-06] VITALS: Ht 165.1 cm; Wt 120.2 kg
[~2018-12-06 18:06] MED LIST changes: +PANT40SU PO
--- OUTSIDE RECORDS SUMMARY | 2018-12-06 18:15 | XMS REPORT ---
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 Active 3606131049498323 Problem Obstructive sleep apnea syndrome G47.33 Active 12344292 Problem Precordial pain R07.2 Active 97199021 Problem Primary osteoarthritis of left knee M17.12 Active 440268941650170 Problem CPAP (continuous positive airway pressure) dependence Z99.89 Active 888963885 Problem 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.29 Active 134791949 Problem Proteinuria, unspecified R80.9 Active 77908221 Problem Other chronic pain G89.29 Active 67042596 Problem Lumbago with sciatica, unspecified side M54.40 Active 525376338 Problem Hypercholesterolemia E78.00 Active 91914569 Problem Morbid obesity due to excess calories E66.01 Active 973455970 Problem Essential hypertension I10 Active 92317721 Problem Bipolar 1 disorder F31.9 Active 837576721 Problem Recurrent major depressive disorder, in full remission F33.42 Active 472153479 Problem Anxiety F41.9 Active 25317533 Problem Type 2 diabetes mellitus with hyperglycemia, without long-term current use of insulin E11.65 Active 74315880 Problem Multinodular goiter E04.2 Active 444658311 Problem Mixed incontinence urge and stress N39.46 Active 374447373 Problem TIA (transient ischemic attack) G45.9 Active 003525909 Problem Chronic fatigue R53.82 Active 30925705 Problem Paroxysmal atrial fibrillation I48.0 Active 568610600 Problem Chronic obstructive pulmonary disease, unspecified COPD type J44.9 Active 98935575 Problem Gastroesophageal reflux disease with esophagitis K21.0 Active 782113953 Problem Chronic migraine without aura without status migrainosus, not intractable G43.709 Active 697706899 Problem BMI 45.0-49.9, adult Z68.42 Active 589055080 Problem Migraine without status migrainosus, not intractable, unspecified migraine type G43.909 Active 19538048 Problem Leukocytosis, unspecified D72.829 Active 596786437 ALLERGIES No Information ENCOUNTERS Encounter Location Date Diagnosis [place] [address] [address] Dec, [place] [address] [address] Oct, Gastroesophageal reflux disease with esophagitis K21.0 ; Morbid obesity E66.01 and Paroxysmal atrial fibrillation I48.0 [place] [address] [address] Oct, [place] [address] [address] Sep, Chest pain, unspecified type R07.9 ; Morbid obesity E66.01 ; Paroxysmal atrial fibrillation I48.0 ; TIA (transient ischemic attack) G45.9 and Migraine without status migrainosus, not intractable, unspecified migraine type G43.909 [place] [address] [address] 18 Sep, 2018 [place] [address] [address] 15 Sep, 2018 Chronic migraine without aura without status migrainosus, not intractable G43.709 [place] [address] [address] 14 Sep, 2018 [facility] [address] [place] [id number] [place] [address] 09 Sep, 2018 Chronic migraine without aura without status migrainosus, not intractable G43.709 ; Right sided weakness R53.1 and Morbid obesity E66.01 [place] [address] [place] [id number] [place] [address] Aug, Type 2 diabetes mellitus with hyperglycemia, without long-term current use of insulin E11.65 ; Palpitations R00.2 ; BMI 45.0-49.9, adult Z68.42 ; Candidal intertrigo B37.2 ; Chronic obstructive pulmonary disease, unspecified COPD type J44.9 ; Tobacco use Z72.0 ; Leukocytosis, unspecified D72.829 ; Hypercholesterolemia E78.00 ; Essential hypertension I10 and Migraine without status migrainosus, not intractable, unspecified migraine type G43.909 [place] [address] [place] [id number] [place] [address] Jul, Recurrent major depressive disorder, in full remission F33.42 and Anxiety F41.9 [place] [address] [address] Jun, [place] [address] [address] May, Multinodular goiter E04.2 [place] [address] [address] May, Microscopic hematuria R31.29 [place] [address] [address] May, Multinodular goiter E04.2 [place] [address] [place] [id number] [place] [address] Apr, [place] [address] [place] [id number] [place] [address] Apr, Acute cystitis with hematuria N30.01 ; Hypercholesterolemia E78.00 ; Essential hypertension I10 ; Type 2 diabetes mellitus with hyperglycemia, without long-term current use of insulin E11.65 ; Multinodular goiter E04.2 ; Other senior living (current) drug therapy Z79.899 and BMI 40.0-44.9, adult Z68.41 [place] [address] [place] [id number] [place] [address] Apr, Type 2 diabetes mellitus with hyperglycemia, without long-term current use of insulin E11.65 [place] [address] [place] [id number] [place] [address] Apr, Recurrent major depressive disorder, in full remission F33.42 ; Anxiety F41.9 and 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 terminal 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 [place] [address] [place] [id number] [place] [address] Apr, [place] [address] [address] Apr, Acute cystitis without hematuria N30.00 ; Encounter for immunization Z23 and BMI 40.0-44.9, adult Z68.41 [place] [address] [address] Mar, [place] [address] [address] Mar, [place] [address] [address] Feb, Type 2 diabetes mellitus with hyperglycemia, without long-term current use of insulin E11.65 ; Viral upper respiratory tract infection J06.9 ; Tobacco use Z72.0 ; BMI 40.0-44.9, adult Z68.41 and Food insecurity Z59.4 [place] [address] [place] [id number] [place] [address] Jan, Recurrent major depressive disorder, in full remission F33.42 and Anxiety F41.9 [place] [address] [place] [id number] [place] [address] Jan, Recurrent major depressive disorder, in full remission F33.42 [place] [address] [place] [id number] [place] [address] November, [place] [address] [address] November, Chronic migraine without aura without status migrainosus, not intractable G43.709 [place] [address] [address] November, Type 2 diabetes mellitus with hyperglycemia, without long-term current use of insulin E11.65 ; Dysuria R30.0 ; Acute cystitis without hematuria N30.00 ; Lumbago with sciatica, unspecified side M54.40 ; Other chronic pain G89.29 ; Chronic obstructive pulmonary disease, unspecified COPD type J44.9 ; Chest pain, unspecified type R07.9 ; Absent pedal pulses R09.89 and BMI 40.0-44.9, adult Z68.[address] [address] Oct, Recurrent major depressive disorder, in full remission F33.42 and Anxiety F41.[address] [address] Sep, Other chronic pain G89.[address] [address] Aug, Other chronic pain G89.29 [place] [id number] [place] [address] Aug, Chronic obstructive pulmonary disease, unspecified COPD type J44.9 ; Other chronic pain G89.29 ; Gastroesophageal reflux disease with esophagitis K21.0 ; Lumbago with sciatica, unspecified side M54.40 ; Bipolar 1 disorder F31.9 ; Essential hypertension I10 ; Type 2 diabetes mellitus with hyperglycemia, without long-term current use of insulin E11.65 ; CPAP (continuous positive airway pressure) dependence Z99.89 ; Obstructive sleep apnea syndrome G47.33 ; Chronic migraine without aura without status migrainosus, not intractable G43.709 ; Hypercholesterolemia E78.00 ; Mixed incontinence urge and stress N39.46 ; Multinodular goiter E04.2 and BMI 40.0- 44.9, adult Z68.41 [place] [id number] [place] [address] Aug, [place] [id number] [place] [address] Jul, Type 2 diabetes mellitus with hyperglycemia, without long-term current use of insulin E11.65 [place] [address] [place] [address] Jul, Type 2 diabetes mellitus with hyperglycemia, without long-term current use of insulin E11.65 [place] [address] [place] [id number] [place] [address] Jul, [place] [address] [place] [id number] [place] [address] Jul, Type 2 diabetes mellitus with hyperglycemia, [...] immunization Z23 and BMI 40.0-44.9, adult Z68.41 [place] [id number] [place] [address] Jun, Migraine without status migrainosus, not intractable, unspecified migraine type G43.909 ; Hypercholesterolemia E78.00 and Lumbago with sciatica, unspecified side M54.40 [place] [address] [place] [id number] [place] [address] Jun, Recurrent major depressive disorder, in full remission F33.42 and Anxiety F41.9 [place] [id number] [place] [address] Jun, [place] [address] [place] [id number] [place] [address] May, Hypercholesterolemia E78.00 ; 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.29 ; Migraine without status migrainosus, not intractable, unspecified migraine type G43.909 and Lumbago with sciatica, unspecified side M54.40 [place] [address] [place] [id number] [place] [address] 14 May, 2017 Multinodular goiter E04.2 [place] [address] [place] [id number] [place] [address] May, [place] [address] [place] [id number] [place] [address] Apr, Multinodular goiter E04.2 [place] [address] [place] [id number] [place] [address] Apr, Abnormal imaging of thyroid R94.6 ; Hypercholesterolemia E78.00 and 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.29 [place] [address] [place] [id number] [place] [address] 29 Mar, 2017 Abnormal imaging of thyroid R94.6 [place] [address] [place] [id number] [place] [address] 20 Mar, 2017 Chest wall mass R22.2 [place] [address] [place] [id number] [place] [address] 07 Mar, 2017 Type 2 diabetes mellitus with hyperglycemia, without long-term current use of insulin E11.65 ; Gastroesophageal reflux disease with esophagitis K21.0 ; Hypercholesterolemia E78.00 ; Proteinuria, unspecified R80.9 ; 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.29 ; Chest wall mass R22.2 and Precordial pain R07.2 [place] [address] [place] [id number] [place] [address] Feb, Recurrent major depressive disorder, in full remission F33.42 [place] [address] [place] [id number] [place] [address] Feb, Recurrent major depressive disorder, in full remission F33.42 and Anxiety F41.9 [place] [address] [place] [id number] [place] [address] Feb, [facility] [address] [facility] [id number] [id number] Jan, Dental examination Z01.20 and Dental caries K02.9 [facility] [address] [address] Dec, [facility] [address] [address] Dec, [facility] [address] [place] [id number] [place] [address] Dec, Type 2 diabetes mellitus with hyperosmolarity [...] unspecified migraine type G43.909 and Stress incontinence (female) (male) N39.3 [facility] [address] [place] [id number] [place] [id number] Dec, Dental caries K02.9 [facility] [address] [address] November, [facility] [address] [place] [id number] [place] [address] November, Essential hypertension I10 ; Other chronic pain G89.29 ; Gastroesophageal reflux disease without esophagitis K21.9 and Anxiety F41.9 [facility] [address] [place] [id number] November, Dental examination Z01.20 [facility] [address] [place] [id number] [address] Oct, Recurrent major depressive disorder, in full remission F33.42 [facility] [address] [address] Sep, Other chronic pain G89.29 [place] [address] [place] [id number] [place] [address] Sep, Other chronic pain G89.29 and Bipolar 1 disorder F31.9 [place] [address] [place] [id number] [place] [address] Aug, Other chronic pain G89.29 [place] [address] [place] [id number] [place] [address] Jul, Gastroesophageal reflux disease without esophagitis K21.9 [place] [address] [place] [id number] [place] [address] Jun, Migraine without status migrainosus, not intractable, unspecified migraine type G43.909 [place] [id number] [place] [address] Jun, Type 2 diabetes mellitus with hyperosmolarity without coma, without long-term current use of insulin E11.00 ; Anxiety F41.9 ; Chronic fatigue R53.82 ; Morbid obesity due to excess calories E66.01 ; Other chronic pain G89.29 ; Migraine without status migrainosus, not intractable, unspecified migraine type G43.909 ; Edema, unspecified type R60.9 ; Stress incontinence (female) (male) N39.3 ; Gastroesophageal reflux disease without esophagitis K21.9 ; Essential hypertension I10 and Hypercholesterolemia E78.00 [place] [address] [place] [address] May, [place] [id number] [place] [address] Apr, Edema, unspecified type R60.9 ; Type [...] Z23 and Stress incontinence (female) (male) N39.3 [place] [address] [place] [id number] [place] [address] Apr, [place] [address] [address] Mar, Headache above the eye region R51 ; Lumbago with sciatica, unspecified side M54.40 ; Edema, unspecified type R60.9 and Migraine without status migrainosus, not intractable, unspecified migraine type G43.909 [place] [address] [place] [id number] [place] [address] Mar, Chronic obstructive pulmonary disease, unspecified COPD type J44.9 ; Type 2 diabetes mellitus with hyperosmolarity without coma, without long-term current use of insulin E11.00 ; Other chronic pain G89.29 ; Migraine without status migrainosus, not intractable, unspecified migraine type G43.909 ; Left- sided chest wall pain R07.89 and Anxiety about health F41.8 [place] [address] [place] [id number] [place] [address] Mar, [place] [address] [place] [id number] [place] [address] Mar, [place] [address] [place] [id number] [place] [address] Mar, [place] [address] [place] [id number] [place] [address] Feb, [place] [address] [place] [id number] [place] [address] Feb, [place] [address] [place] [id number] [place] [address] Feb, Chronic fatigue R53.82 ; Lumbago with sciatica, unspecified side M54.40 ; Gastroesophageal reflux disease with esophagitis K21.0 ; Other chronic pain G89.29 ; Morbid obesity due to excess calories E66.01 ; Migraine without status migrainosus, not intractable, unspecified migraine type G43.909 and Edema, unspecified type R60.9 [facility] [address] [place] [id number] [id number] Feb, Dental examination Z01.20 [facility] [address] [place] [id number] [address] Feb, [facility] [address] [place] [id number] [place] [address] Feb, Type 2 diabetes mellitus with hyperosmolarity without coma, without long-term current use of insulin E11.00 ; Chronic fatigue R53.82 ; Gastroesophageal reflux disease with esophagitis K21.0 ; Morbid obesity due to excess calories E66.01 ; Lumbago with sciatica, unspecified side M54.40 and Other chronic pain G89.29 [facility] [address] [address] Feb, Type 2 diabetes mellitus with hyperosmolarity without coma, without long-term current use of insulin E11.00 ; Chronic fatigue R53.82 ; Gastroesophageal reflux disease with esophagitis K21.0 ; Morbid obesity due to excess calories E66.01 ; Lumbago with sciatica, unspecified side M54.40 and Other chronic pain G89.29 [facility] [address] [place] [id number] [id number] Feb, Dental examination Z01.20 [facility] [address] [address] Jan, [facility] [address] [place] [id number] [place] [address] Mar, [facility] [address] [place] [id number] [id number] Feb, Dental examination V72.2 [facility] [address] [place] [id number] [place] [address] 14 Oct, 2014 [facility] [address] [id number] [place] [address] 13 Oct, 2014 [facility] [address] [id number] [place] [address] Aug, [facility] [address] [id number] [place] [address] Aug, [facility] [address] [id number] [place] [address] Jul, [facility] [address] [id number] [place] [address] Jul, [facility] [address] [id number] [place] [address] Jun, [facility] [address] [id number] [place] [address] 30 Jun, 2014 [facility] [address] [id number] [place] [address] 29 Jun, 2014 [facility] [address] [id number] [place] [address] 29 Jun, 2014 [facility] [address] [id number] [place] [address] 26 Jun, 2014 [facility] [address] [id number] [place] [address] 23 Jun, 2014 [facility] [address] [id number] [place] [address] 23 Jun, 2014 [facility] [place] [facility] [address] [id number] [place] [address] 16 Jun, 2014 [facility] [place] [facility] [address] [id number] [place] [address] 16 Jun, 2014 [facility] [place] [facility] [address] [id number] [place] [address] Jun, [facility] [place] [facility] [address] [id number] [place] [address] Jun, [facility] [place] [facility] [address] [id number] [place] [address] Jun, [facility] [place] [facility] [address] [id number] [place] [address] Jun, [facility] [place] [facility] [address] [id number] [place] [address] May, [facility] [place] [facility] [address] [id number] [place] [address] May, [facility] [place] [facility] [address] [id number] [place] [address] May, [facility] [place] [facility] [address] [id number] [place] [address] May, [facility] [place] [facility] [address] [id number] [place] [address] Apr, [facility] [place] [facility] [address] [id number] [place] [address] Apr, [facility] [place] [facility] [address] [id number] [place] [address] Apr, [facility] [place] [facility] [address] [id number] [place] [address] Apr, [facility] [place] [facility] [address] [id number] [address] Apr, [facility] [place] [facility] [address] [id number] [place] [address] Apr, [facility] [place] [facility] [address] [id number] [place] [address] Apr, [facility] [place] [facility] [address] [id number] [place] [address] Apr, [facility] [place] [facility] [address] [id number], [place] [address] Apr, [facility] [address] [facility] [id number], [place] [address] Apr, [facility] [address] [facility] [id number], [place] [address] Mar, [facility] [address] [facility] [id number], [place] [address] Mar, [facility] [address] [facility] [id number], [place] [address] Feb, [facility] [address] [facility] [id number], [place] [address] Feb, [facility] [address] [address] Feb, [facility] [address] [address] Feb, [facility] [address] [place] [id number] [address] Jan, [facility] [id number] [address] Jan, IMMUNIZATIONS No Known Immunizations SOCIAL HISTORY Never Assessed REASON FOR VISIT EMR-[facility] PLAN OF CARE VITAL SIGNS MEDICATIONS Unknown Medications RESULTS No Results PROCEDURES No Known procedures INSTRUCTIONS MEDICATIONS ADMINISTERED No Known Medications MEDICAL (GENERAL) HISTORY Type Description Date Medical History arthritis Medical History memory loss/brain damage Medical History fractured right humerus and left fibula 08/2016 Medical History Atrial Fibrillation Surgical History knee scopes x3 Surgical History [...] and UTI 02/2017 Hospitalization History [facility]- UTI 11/23/2017 Hospitalization History [facility] 2017
--- OUTSIDE RECORDS SUMMARY | 2018-12-06 18:16 | XMS REPORT ---
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 Active 0747437857179601 Problem Obstructive sleep apnea syndrome G47.33 Active 61568722 Problem Precordial pain R07.2 Active 88292675 Problem Primary osteoarthritis of left knee M17.12 Active 651298282506030 Problem CPAP (continuous positive airway pressure) dependence Z99.89 Active 326187058 Problem 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.29 Active 173262114 Problem Proteinuria, unspecified R80.9 Active 37245068 Problem Other chronic pain G89.29 Active 25983732 Problem Lumbago with sciatica, unspecified side M54.40 Active 287989801 Problem Hypercholesterolemia E78.00 Active 83378888 Problem Morbid obesity due to excess calories E66.01 Active 397618289 Problem Essential hypertension I10 Active 35007044 Problem Bipolar 1 disorder F31.9 Active 875119369 Problem Recurrent major depressive disorder, in full remission F33.42 Active 205354036 Problem Anxiety F41.9 Active 44100983 Problem Type 2 diabetes mellitus with hyperglycemia, without long-term current use of insulin E11.65 Active 71803051 Problem Multinodular goiter E04.2 Active 370153760 Problem Mixed incontinence urge and stress N39.46 Active 062697968 Problem TIA (transient ischemic attack) G45.9 Active 563453059 Problem Chronic fatigue R53.82 Active 27569881 Problem Paroxysmal atrial fibrillation I48.0 Active 280951030 Problem Chronic obstructive pulmonary disease, unspecified COPD type J44.9 Active 29738695 Problem Gastroesophageal reflux disease with esophagitis K21.0 Active 350277278 Problem Chronic migraine without aura without status migrainosus, not intractable G43.709 Active 076958035 Problem BMI 45.0-49.9, adult Z68.42 Active 823699424 Problem Migraine without status migrainosus, not intractable, unspecified migraine type G43.909 Active 00753561 Problem Leukocytosis, unspecified D72.829 Active 027667855 ALLERGIES No Information ENCOUNTERS Encounter Location Date Diagnosis [place] [address] [address] Oct, [place] [address] [address] Oct, Gastroesophageal reflux disease with esophagitis K21.0 ; Morbid obesity E66.01 and Paroxysmal atrial fibrillation I48.0 [place] [address] [address] Oct, [place] [address] [address] Sep, Chest pain, unspecified type R07.9 ; Morbid obesity E66.01 ; Paroxysmal atrial fibrillation I48.0 ; TIA (transient ischemic attack) G45.9 and Migraine without status migrainosus, not intractable, unspecified migraine type G43.909 [place] [address] [address] 18 Sep, 2018 [place] [address] [address] Sep, Chronic migraine without aura without status migrainosus, not intractable G43.709 [place] [address] [address] 14 Sep, 2018 [facility] [address] [place] [id number] [place] [address] 09 Sep, 2018 Chronic migraine without aura without status migrainosus, not intractable G43.709 ; Right sided weakness R53.1 and Morbid obesity E66.01 [place] [address] [place] [id number] [place] [address] Aug, Type 2 diabetes mellitus with hyperglycemia, without long-term current use of insulin E11.65 ; Palpitations R00.2 ; BMI 45.0-49.9, adult Z68.42 ; Candidal intertrigo B37.2 ; Chronic obstructive pulmonary disease, unspecified COPD type J44.9 ; Tobacco use Z72.0 ; Leukocytosis, unspecified D72.829 ; Hypercholesterolemia E78.00 ; Essential hypertension I10 and Migraine without status migrainosus, not intractable, unspecified migraine type G43.909 [place] [address] [place] [id number] [place] [address] Jul, Recurrent major depressive disorder, in full remission F33.42 and Anxiety F41.9 [place] [address] [address] Jun, [place] [address] [address] May, Multinodular goiter E04.2 [place] [address] [address] May, Microscopic hematuria R31.29 [place] [address] [address] May, Multinodular goiter E04.2 [place] [address] [place] [id number] [place] [address] Apr, [place] [address] [place] [id number] [place] [address] Apr, Acute cystitis with hematuria N30.01 ; Hypercholesterolemia E78.00 ; Essential hypertension I10 ; Type 2 diabetes mellitus with hyperglycemia, without long-term current use of insulin E11.65 ; Multinodular goiter E04.2 ; Other fpc (current) drug therapy Z79.899 and BMI 40.0-44.9, adult Z68.41 [place] [address] [place] [id number] [place] [address] Apr, Type 2 diabetes mellitus with hyperglycemia, without long-term current use of insulin E11.65 [place] [address] [place] [id number] [place] [address] Apr, Recurrent major depressive disorder, in full remission F33.42 ; Anxiety F41.9 and Other oil heaterman (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) drug 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 Z79.899 [place] [address] [place] [id number] [place] [address] Apr, [place] [address] [address] Apr, Acute cystitis without hematuria N30.00 ; Encounter for immunization Z23 and BMI 40.0-44.9, adult Z68.41 [place] [address] [address] Mar, [place] [address] [address] Mar, [place] [address] [address] Feb, Type 2 diabetes mellitus with hyperglycemia, without long-term current use of insulin E11.65 ; Viral upper respiratory tract infection J06.9 ; Tobacco use Z72.0 ; BMI 40.0-44.9, adult Z68.41 and Food insecurity Z59.4 [place] [address] [place] [id number] [place] [address] Jan, Recurrent major depressive disorder, in full remission F33.42 and Anxiety F41.9 [place] [address] [place] [id number] [place] [address] Jan, Recurrent major depressive disorder, in full remission F33.42 [place] [address] [place] [id number] [place] [address] November, [place] [address] [address] November, Chronic migraine without aura without status migrainosus, not intractable G43.709 [place] [address] [address] November, Type 2 diabetes mellitus with hyperglycemia, without long-term current use of insulin E11.65 ; Dysuria R30.0 ; Acute cystitis without hematuria N30.00 ; Lumbago with sciatica, unspecified side M54.40 ; Other chronic pain G89.29 ; Chronic obstructive pulmonary disease, unspecified COPD type J44.9 ; Chest pain, unspecified type R07.9 ; Absent pedal pulses R09.89 and BMI 40.0-44.9, adult Z68.[address] [address] Oct, Recurrent major depressive disorder, in full remission F33.42 and Anxiety F41.[address] [address] Sep, Other chronic pain G89.[address] [address] Aug, Other chronic pain G89.29 [place] [id number] [place] [address] Aug, Chronic obstructive pulmonary disease, unspecified COPD [...] E04.2 and BMI 40.0- 44.9, adult Z68.41 [place] [id number] [place] [address] Aug, [place] [id number] [place] [address] Jul, Type 2 diabetes mellitus with hyperglycemia, without long-term current use of insulin E11.65 [place] [id number] [place] [address] Jul, Type 2 diabetes mellitus with hyperglycemia, without long-term current use of insulin E11.65 [place] [address] [place] [id number] [place] [address] Jul, [place] [address] [place] [id number] [place] [address] Jul, Type 2 diabetes mellitus with hyperglycemia, [...] immunization Z23 and BMI 40.0-44.9, adult Z68.41 [place] [id number] [place] [address] Jun, Migraine without status migrainosus, not intractable, unspecified migraine type G43.909 ; Hypercholesterolemia E78.00 and Lumbago with sciatica, unspecified side M54.40 [place] [address] [place] [id number] [place] [address] Jun, Recurrent major depressive disorder, in full remission F33.42 and Anxiety F41.9 [place] [id number] [place] [address] Jun, [place] [address] [place] [id number] [place] [address] May, Hypercholesterolemia E78.00 ; 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.29 ; Migraine without status migrainosus, not intractable, unspecified migraine type G43.909 and Lumbago with sciatica, unspecified side M54.40 [place] [address] [place] [id number] [place] [address] 14 May, 2017 Multinodular goiter E04.2 [place] [address] [place] [id number] [place] [address] May, [place] [address] [place] [id number] [place] [address] Apr, Multinodular goiter E04.2 [place] [address] [place] [id number] [place] [address] Apr, Abnormal imaging of thyroid R94.6 ; Hypercholesterolemia E78.00 and 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.29 [place] [address] [place] [id number] [place] [address] 29 Mar, 2017 Abnormal imaging of thyroid R94.6 [place] [address] [place] [id number] [place] [address] 20 Mar, 2017 Chest wall mass R22.2 [place] [address] [place] [id number] [place] [address] 07 Mar, 2017 Type 2 diabetes mellitus with hyperglycemia, without long-term current use of insulin E11.65 ; Gastroesophageal reflux disease with esophagitis K21.0 ; Hypercholesterolemia E78.00 ; Proteinuria, unspecified R80.9 ; 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.29 ; Chest wall mass R22.2 and Precordial pain R07.2 [place] [address] [place] [id number] [place] [address] Feb, Recurrent major depressive disorder, in full remission F33.42 [place] [address] [place] [id number] [place] [address] Feb, Recurrent major depressive disorder, in full remission F33.42 and Anxiety F41.9 [place] [address] [place] [id number] [place] [address] Feb, [facility] [address] [facility] [id number] [id number] Jan, Dental examination Z01.20 and Dental caries K02.9 [facility] [place] [address] [address] Dec, [facility] [place] [address], [place] [address] Dec, [facility] [place] [address] [place] [id number] [place] [address] Dec, Type 2 diabetes mellitus with hyperosmolarity [...] G43.909 and Stress incontinence (female) (male) N39.3 [facility] [address] [place] [id number] [place] [id number] Dec, Dental caries K02.9 [facility] [place] [address], [place] [address] November, [facility] [place] [address] [place] [id number] [place] [address] November, Essential hypertension I10 ; Other chronic pain G89.29 ; Gastroesophageal reflux disease without esophagitis K21.9 and Anxiety F41.9 [facility] [address] [place] [id number] November, Dental examination Z01.20 [facility] [place] [address] [place] [id number], [place] [address] Oct, Recurrent major depressive disorder, in full remission F33.42 [facility] [place] [address], [place] [address] Sep, Other chronic pain G89.29 [place] [address] [place] [id number] [place] [address] Sep, Other chronic pain G89.29 and Bipolar 1 disorder F31.9 [place] [address] [place] [id number] [place] [address] Aug, Other chronic pain G89.29 [place] [address] [place] [id number] [place] [address] Jul, Gastroesophageal reflux disease without esophagitis K21.9 [place] [address] [place] [id number] [place] [address] Jun, Migraine without status migrainosus, not intractable, unspecified migraine type G43.909 [place] [id number] [place] [address] Jun, Type 2 diabetes mellitus with hyperosmolarity [...] ; Essential hypertension I10 and Hypercholesterolemia E78.00 [place] [address] [place] [address] May, [place] [id number] [place] [address] Apr, Edema, unspecified type R60.9 ; Type [...] Z23 and Stress incontinence (female) (male) N39.3 [place] [address] [place] [id number] [place] [address] Apr, [place] [address] [address] Mar, Headache above the eye region R51 ; Lumbago with sciatica, unspecified side M54.40 ; Edema, unspecified type R60.9 and Migraine without status migrainosus, not intractable, unspecified migraine type G43.909 [place] [address] [place] [id number] [place] [address] Mar, Chronic obstructive pulmonary disease, unspecified COPD type J44.9 ; Type 2 diabetes mellitus with hyperosmolarity without coma, without long-term current use of insulin E11.00 ; Other chronic pain G89.29 ; Migraine without status migrainosus, not intractable, unspecified migraine type G43.909 ; Left- sided chest wall pain R07.89 and Anxiety about health F41.8 [place] [address] [place] [id number] [place] [address] Mar, [place] [address] [place] [id number] [place] [address] Mar, [place] [address] [place] [id number] [place] [address] Mar, [place] [address] [place] [id number] [place] [address] Feb, [place] [address] [place] [id number] [place] [address] Feb, [place] [address] [place] [id number] [place] [address] Feb, Chronic fatigue R53.82 ; Lumbago with sciatica, unspecified side M54.40 ; Gastroesophageal reflux disease with esophagitis K21.0 ; Other chronic pain G89.29 ; Morbid obesity due to excess calories E66.01 ; Migraine without status migrainosus, not intractable, unspecified migraine type G43.909 and Edema, unspecified type R60.9 [facility] [address] [place] [id number] [id number] Feb, Dental examination Z01.20 [facility] [place] [address] [place] [id number] [address] Feb, [facility] [place] [address] [place] [id number] [place] [address] Feb, Type 2 diabetes mellitus with hyperosmolarity without coma, without long-term current use of insulin E11.00 ; Chronic fatigue R53.82 ; Gastroesophageal reflux disease with esophagitis K21.0 ; Morbid obesity due to excess calories E66.01 ; Lumbago with sciatica, unspecified side M54.40 and Other chronic pain G89.29 [facility] [place] [address], [place] [address] Feb, Type 2 diabetes mellitus with hyperosmolarity without coma, without long-term current use of insulin E11.00 ; Chronic fatigue R53.82 ; Gastroesophageal reflux disease with esophagitis K21.0 ; Morbid obesity due to excess calories E66.01 ; Lumbago with sciatica, unspecified side M54.40 and Other chronic pain G89.29 [facility] [address] [place] [id number] [id number] Feb, Dental examination Z01.20 [facility] [place] [address], [place] [address] Jan, [facility] [place] [address] [place] [id number] [place] [address] Mar, [facility] [address] [place] [id number] [id number] Feb, Dental examination V72.2 [facility] [place] [address] [place] [id number] [place] [address] 14 Oct, 2014 [facility] [address] [id number] [place] [address] 13 Oct, 2014 [facility] [address] [id number] [place] [address] Aug, [facility] [address] [id number] [place] [address] Aug, [facility] [address] [id number] [place] [address] Jul, [facility] [address] [id number] [place] [address] Jul, [facility] [address] [id number] [place] [address] Jun, [facility] [address] [id number] [place] [address] 30 Jun, 2014 [facility] [address] [id number] [place] [address] 29 Jun, 2014 [facility] [address] [id number] [place] [address] 29 Jun, 2014 [facility] [address] [id number] [place] [address] 26 Jun, 2014 [facility] [address] [id number] [place] [address] 23 Jun, 2014 [facility] [address] [id number] [place] [address] 23 Jun, 2014 [facility] [place] [facility] [address] [id number] [place] [address] 16 Jun, 2014 [facility] [place] [facility] [address] [id number] [place] [address] 16 Jun, 2014 [facility] [place] [facility] [address] [id number] [place] [address] Jun, [facility] [place] [facility] [address] [id number] [place] [address] Jun, [facility] [place] [facility] [address] [id number] [place] [address] Jun, [facility] [place] [facility] [address] [id number] [place] [address] Jun, [facility] [place] [facility] [address] [id number] [place] [address] May, [facility] [place] [facility] [address] [id number] [place] [address] May, [facility] [place] [facility] [address] [id number] [place] [address] May, [facility] [place] [facility] [address] [id number] [place] [address] May, [facility] [place] [facility] [address] [id number] [place] [address] Apr, [facility] [place] [facility] [address] [id number] [place] [address] Apr, [facility] [place] [facility] [address] [id number] [place] [address] Apr, [facility] [place] [facility] [address] [id number] [place] [address] Apr, [facility] [place] [facility] [address] [id number], [place] [address] Apr, [facility] [place] [facility] [address] [id number] [place] [address] Apr, [facility] [place] [facility] [address] [id number] [place] [address] Apr, [facility] [place] [facility] [address] [id number] [place] [address] Apr, [facility] [place] [facility] [address] [id number], [place] [address] Apr, [facility] [place] [address] [facility] [id number], [place] [address] Apr, [facility] [place] [address] [facility] [id number], [place] [address] Mar, [facility] [place] [address] [facility] [id number], [place] [address] Mar, [facility] [place] [address] [facility] [id number], [place] [address] Feb, [facility] [place] [address] [facility] [id number], [place] [address] Feb, [facility] [place] [address], [place] [address] Feb, [facility] [place] [address], [place] [address] Feb, [facility] [place] [address] [place] [id number], [place] [address] Jan, [facility] [place] [address] [place] [id number], [place] [address] Jan, IMMUNIZATIONS No Known Immunizations SOCIAL HISTORY Never Assessed REASON FOR VISIT [place] [place] VITAL SIGNS MEDICATIONS Unknown [...] and UTI 02/2017 Hospitalization History [facility] [place]- UTI 11/23/2017 Hospitalization History [facility] 2017
[2018-12-06 18:36] LABS: BILIRUBIN,URINE NEGATIVE (NEGATIVE); CLARITY,URINE CLEAR; COLOR,URINE YELLOW; GLUCOSE, URINE (UA) NEGATIVE (NEGATIVE); KETONES,URINE NEGATIVE (NEGATIVE); LEUKOCYTE ESTERASE ,URINE 1+ (NEGATIVE); NITRITE,URINE NEGATIVE (NEGATIVE); PH,URINE 6.5 (5-9); PROTEIN,URINE NEGATIVE (NEGATIVE); UROBILINOGEN,URINE NORMAL (NORMAL)
[2018-12-06 18:44] LABS: BACTERIA,URINE TRACE /HPF; WBC,URINE 0-2 /HPF
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
[2018-12-06 19:07] LABS: BASOPHILS # (AUTO) 0.1 10^3/uL (0.0-0.1); BASOPHILS % (AUTO) 1 % (0-10); EOSINOPHILS # (AUTO) 0.3 10^3/uL (0.0-0.3); EOSINOPHILS % (AUTO) 2 % (0-10); HEMATOCRIT 36 % (35-52); LYMPHOCYTES % (AUTO) 30 % (12-44); MEAN CORPUSCULAR HEMOGLOBIN 26 PG (25-34); MEAN CORPUSCULAR HGB CONC 33 G/DL (32-36); MEAN CORPUSCULAR VOLUME 80 FL (80-99); MONOCYTES # (AUTO) 0.7 X 10^3 (0.0-1.0); MONOCYTES % (AUTO) 6 % (0-12); NEUTROPHILS # (AUTO) 8.2 X 10^3 (1.8-7.8); NEUTROPHILS % (AUTO) 62 % (42-75); PLATELET COUNT 331 10^3/uL (130-400); RED CELL DISTRIBUTION WIDTH 14.9 % (10.0-14.5); WHITE BLOOD COUNT 13.2 10^3/uL (4.3-11.0)
[2018-12-06 19:23] LABS: CREATININE SERUM 0.99 MG/DL (0.60-1.30); POTASSIUM 3.8 MMOL/L (3.6-5.0)
[2018-12-06 19:30] VITALS: BP 113/77
[2018-12-06] MEDS ORDERED: NAPR-1071 PO (19:30)
== END 2018-12-06 19:34 | disposition home or self-care (01) ==
LOC: EDUNIT# 18:06 → ER 18:07
DX: R10.2 Pelvic and perineal pain (principal); M54.5 Low back pain; G47.30 Sleep apnea, unspecified; J44.9 Chronic obstructive pulmonary disease, unspecified; E78.00 Pure hypercholesterolemia, unspecified; I10 Essential (primary) hypertension; G43.909 Migraine, unspecified, not intractable, without status migrainosus; K21.9 Gastro-esophageal reflux disease without esophagitis; E11.9 Type 2 diabetes mellitus without complications; F41.9 Anxiety disorder, unspecified; Z82.49 Family history of ischemic heart disease and other diseases of the circulatory system; Z87.448 Personal history of other diseases of urinary system; Z87.820 Personal history of traumatic brain injury; Z86.73 Personal history of transient ischemic attack (TIA), and cerebral infarction without residual deficits; Z95.9 Presence of cardiac and vascular implant and graft, unspecified; Z88.0 Allergy status to penicillin; Z91.041 Radiographic dye allergy status; Z79.01 Long term (current) use of anticoagulants; Z79.82 Long term (current) use of aspirin; Z87.891 Personal history of nicotine dependence; Z87.442 Personal history of urinary calculi; Z98.51 Tubal ligation status; Z90.6 Acquired absence of other parts of urinary tract
CPT/HCPCS: 36415; 80048; 81000; 84703; 85025; 87088; 99282

== ENCOUNTER → 2018-12-13 | Outpatient (CLI) | payer MEDICARE, MEDICAID ==
[~2018-12-13] MED LIST changes: +NAPR-1071 PO
--- NOTE | 2018-12-13 16:53 | Diagnostic Imaging Report ---
PROCEDURE: US Non-ob pelvis comp/trans. TECHNIQUE: Multiple realtime grayscale images were obtained of the pelvis in various projections endovaginally. Transabdominal imaging was also performed. INDICATION: Pelvic pain. FINDINGS: Uterus is 9.5 x 4.6 x 5.3 cm. Endometrium is 3 mm in thickness. There is a probable fibroid posteriorly measuring 2.2 cm in diameter. The ovaries were not visualized. No adnexal mass or free fluid is seen. IMPRESSION: Probable uterine fibroid. No other significant abnormality is seen. Dictated by: Dictated on workstation # [id number]
== END ==
LOC: RAD 16:10
PROVIDERS: ATTEND Nurse Practitioner Family
DX: R10.2 Pelvic and perineal pain (principal)
CPT/HCPCS: 76830; 76856

== ENCOUNTER 2019-01-04 14:15 | Emergency (ER) | payer MEDICAID, MEDICARE ==
[~2019-01-04] VITALS: Ht 165.1 cm; Wt 129.7 kg
[2019-01-04] MEDS ORDERED: NS IV 1000 ML 1,000 ML IV ONE (15:42)
[2019-01-04 15:48] LABS: BASOPHILS # (AUTO) 0.1 10^3/uL (0.0-0.1); BASOPHILS % (AUTO) 0 % (0-10); EOSINOPHILS # (AUTO) 0.2 10^3/uL (0.0-0.3); EOSINOPHILS % (AUTO) 1 % (0-10); HEMATOCRIT 39 % (35-52); HEMOGLOBIN 12.7 G/DL (11.5-16.0); LYMPHOCYTES # (AUTO) 3.6 X 10^3 (1.0-4.0); LYMPHOCYTES % (AUTO) 23 % (12-44); MEAN CORPUSCULAR HEMOGLOBIN 26 PG (25-34); MEAN CORPUSCULAR HGB CONC 33 G/DL (32-36); MEAN CORPUSCULAR VOLUME 80 FL (80-99); MEAN PLATELET VOLUME 11.2 FL (7.4-10.4); MONOCYTES # (AUTO) 0.8 X 10^3 (0.0-1.0); MONOCYTES % (AUTO) 5 % (0-12); NEUTROPHILS # (AUTO) 10.9 X 10^3 (1.8-7.8); NEUTROPHILS % (AUTO) 70 % (42-75); PLATELET COUNT 397 10^3/uL (130-400); RED CELL DISTRIBUTION WIDTH 14.5 % (10.0-14.5); WHITE BLOOD COUNT 15.6 10^3/uL (4.3-11.0)
[2019-01-04 15:59] LABS: ALBUMIN 4.1 GM/DL (3.2-4.5); BILIRUBIN,TOTAL 0.3 MG/DL (0.1-1.0); CALCIUM 9.1 MG/DL (8.5-10.1); CREATININE SERUM 1.04 MG/DL (0.60-1.30); POTASSIUM 3.8 MMOL/L (3.6-5.0); TOTAL PROTEIN 7.6 GM/DL (6.4-8.2)
[2019-01-04 15:59] LABS: BILIRUBIN,URINE NEGATIVE (NEGATIVE); CLARITY,URINE CLEAR; COLOR,URINE YELLOW; GLUCOSE, URINE (UA) NEGATIVE (NEGATIVE); KETONES,URINE NEGATIVE (NEGATIVE); LEUKOCYTE ESTERASE ,URINE 1+ (NEGATIVE); NITRITE,URINE NEGATIVE (NEGATIVE); PH,URINE 7 (5-9); PROTEIN,URINE NEGATIVE (NEGATIVE); UROBILINOGEN,URINE NORMAL (NORMAL)
[2019-01-04] MEDS ORDERED: diphenhydrAMINE 50 MG/ML INJ (BENADRYL) ONE (16:06)
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
[2019-01-04 16:07] LABS: BACTERIA,URINE TRACE /HPF; WBC,URINE RARE /HPF
[2019-01-04] MEDS ORDERED: methylPREDNISolone 125 MG (Solu-MEDROL) VIAL ONE (16:07)
[2019-01-04] MEDS ORDERED: NS 100 ML (IVPB) BAG IV ONE (16:15)
[2019-01-04] MEDS ORDERED: methylPREDNISolone 125 MG (Solu-MEDROL) VIAL IVP ONE (16:15)
[2019-01-04] MEDS ORDERED: HOLD METFORMIN - RECEIVED CONTRAST 20 ML VIAL IV SCH (16:15)
[2019-01-04] MEDS ORDERED: IOHEXOL 350 MG/ML 100 ML (OMNIPAQUE 350) VIAL IV ONE (16:15)
[2019-01-04] MEDS ORDERED: diphenhydrAMINE 50 MG/ML INJ (BENADRYL) IVP ONE (16:15)
[2019-01-04 16:23] LABS: BAND NEUTROPHILS 2 %; NEUTROPHILS % (MANUAL) 67 %
[2019-01-04 16:24] LABS: BASOPHILS % (MANUAL) 0 %; EOSINOPHILS % (MANUAL) 0 %; LYMPHOCYTES % (MANUAL) 24 %; MONOCYTES % (MANUAL) 7 %; RBC MORPH NORMAL
--- NOTE | 2019-01-04 17:03 | Diagnostic Imaging Report ---
PROCEDURE: CT abdomen and pelvis with contrast, rule out appendicitis. TECHNIQUE: Multiple contiguous axial images were obtained through the abdomen and pelvis after the administration of intravenous contrast. INDICATION: Right-sided abdominal pain beginning yesterday. Vomiting and nausea. COMPARISON: 08/02/2016 FINDINGS: The lung bases are clear. The heart is normal in size. There is no pericardial effusion. The liver demonstrates no focal lesions. The spleen appears normal. The pancreas is normal. The adrenal glands appear normal. The left kidney demonstrates cortical thinning. There are nonobstructing calculi in the kidneys bilaterally. No hydronephrosis or renal masses are seen. The appendix appears normal (image 87, series 2). No dilated loops of small bowel are seen to indicate obstruction. There is a right ovarian cyst measuring 3 cm in diameter. No free fluid is seen. No free air seen. No acute osseous abnormalities seen. There are degenerative changes in the lumbar spine, particularly L3-4. IMPRESSION: 1. No appendicitis. 2. 3 cm right ovarian cyst. 3. Thinning of the left renal cortex may represent atrophy. There are nonobstructing calculi bilaterally. Dictated by: Dictated on workstation # [id number]
[2019-01-04] MEDS ORDERED: KETOROLAC 30 MG/ML VIAL IVP STA (17:39)
[2019-01-04] MEDS ORDERED: HYDROcodone/APAP 5 MG/325 MG (LORTAB) TAB PO ONE (17:45)
[2019-01-04] MEDS ORDERED: TRAM50TA2 PO (17:48)
[2019-01-04 18:02] VITALS: BP 115/72
== END 2019-01-04 18:02 | disposition home or self-care (01) ==
LOC: EDUNIT# 14:15 → ER 14:16
DX: N83.201 Unspecified ovarian cyst, right side (principal); R19.7 Diarrhea, unspecified; G47.30 Sleep apnea, unspecified; J44.9 Chronic obstructive pulmonary disease, unspecified; E78.00 Pure hypercholesterolemia, unspecified; I10 Essential (primary) hypertension; G43.909 Migraine, unspecified, not intractable, without status migrainosus; K21.9 Gastro-esophageal reflux disease without esophagitis; E11.9 Type 2 diabetes mellitus without complications; F41.9 Anxiety disorder, unspecified; Z87.448 Personal history of other diseases of urinary system; Z87.820 Personal history of traumatic brain injury; Z82.49 Family history of ischemic heart disease and other diseases of the circulatory system; Z86.73 Personal history of transient ischemic attack (TIA), and cerebral infarction without residual deficits; Z95.9 Presence of cardiac and vascular implant and graft, unspecified; Z88.0 Allergy status to penicillin; Z88.8 Allergy status to other drugs, medicaments and biological substances; Z79.51 Long term (current) use of inhaled steroids; Z79.82 Long term (current) use of aspirin; Z87.442 Personal history of urinary calculi; Z87.891 Personal history of nicotine dependence; Z98.51 Tubal ligation status; Z98.890 Other specified postprocedural states; Z90.6 Acquired absence of other parts of urinary tract
CPT/HCPCS: 36415; 74177; 80053; 81000; 85007; 85027; 96361; 96374; 96375

== ENCOUNTER 2019-01-30 08:22 | Emergency (ER) | payer MEDICARE ==
[~2019-01-30] VITALS: Ht 165.1 cm; Wt 128.8 kg
--- OUTSIDE RECORDS SUMMARY | 2019-01-30 08:29 | XMS REPORT ---
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 Active [id number] Problem Obstructive sleep apnea syndrome G47.33 Active 28966647 Problem Precordial pain R07.2 Active 19264779 Problem Primary osteoarthritis of left knee M17.12 Active [id number] Problem CPAP (continuous positive airway pressure) dependence Z99.89 Active 075248275 Problem 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.29 Active 784266973 Problem Proteinuria, unspecified R80.9 Active 65099423 Problem Other chronic pain G89.29 Active 77470371 Problem Lumbago with sciatica, unspecified side M54.40 Active 386906606 Problem Hypercholesterolemia E78.00 Active 50199542 Problem Morbid obesity due to excess calories E66.01 Active 317651235 Problem Essential hypertension I10 Active 60138115 Problem Bipolar 1 disorder F31.9 Active 116776489 Problem Recurrent major depressive disorder, in full remission F33.42 Active 802853086 Problem Anxiety F41.9 Active 56082925 Problem Type 2 diabetes mellitus with hyperglycemia, without long-term current use of insulin E11.65 Active 39448526 Problem Multinodular goiter E04.2 Active 869299766 Problem Mixed incontinence urge and stress N39.46 Active 121790778 Problem TIA (transient ischemic attack) G45.9 Active 136630085 Problem Chronic fatigue R53.82 Active 05785868 Problem Paroxysmal atrial fibrillation I48.0 Active 756501973 Problem Chronic obstructive pulmonary disease, unspecified COPD type J44.9 Active 56445432 Problem Gastroesophageal reflux disease with esophagitis K21.0 Active 804903763 Problem Chronic migraine without aura without status migrainosus, not intractable G43.709 Active 547228543 Problem BMI 45.0-49.9, adult Z68.42 Active 559532349 Problem Migraine without status migrainosus, not intractable, unspecified migraine type G43.909 Active 50459190 Problem Leukocytosis, unspecified D72.829 Active 159328632 ALLERGIES No Information ENCOUNTERS Encounter Location Date Diagnosis [place] [id number] [place] [address] Jan, [place] [address] [address] Dec, Right ovarian cyst N83.201 [place] [address] [address] November, Pelvic pain R10.2 ; Cystitis N30.90 and Morbid obesity E66.01 [place] [address] [address] November, [place] [address] [address] November, Pelvic pain R10.2 and Morbid obesity E66.01 [place] [address] [address] November, [place] [id number] [place] [address] Oct, Gastroesophageal reflux disease with esophagitis K21.0 ; Morbid obesity E66.01 and Paroxysmal atrial fibrillation I48.0 [place] [id number] [place] [address] Oct, [place] [address] [address] Sep, Chest pain, unspecified type R07.9 ; Morbid obesity E66.01 ; Paroxysmal atrial fibrillation I48.0 ; TIA (transient ischemic attack) G45.9 and Migraine without status migrainosus, not intractable, unspecified migraine type G43.909 [place] [id number] [place] [address] 18 Sep, 2018 [place] [address] [address] Sep, Chronic migraine without aura without status migrainosus, not intractable G43.709 [place] [address] [address] Sep, [facility] [address] [address] Sep, Chronic migraine without aura without status migrainosus, not intractable G43.709 ; Right sided weakness R53.1 and Morbid obesity E66.01 [place] [address] [address] Aug, Type 2 diabetes mellitus with hyperglycemia, without long-term current use of insulin E11.65 ; Palpitations R00.2 ; BMI 45.0-49.9, adult Z68.42 ; Candidal intertrigo B37.2 ; Chronic obstructive pulmonary disease, unspecified COPD type J44.9 ; Tobacco use Z72.0 ; Leukocytosis, unspecified D72.829 ; Hypercholesterolemia E78.00 ; Essential hypertension I10 and Migraine without status migrainosus, not intractable, unspecified migraine type G43.909 [place] [address] [address] Jul, Recurrent major depressive disorder, in full remission F33.42 and Anxiety F41.9 [place] [id number] [place] [address] Jun, [place] [address] [address] May, Multinodular goiter E04.2 [place] [address] [address] 07 May, 2018 Microscopic hematuria R31.29 [place] [address] [address] May, Multinodular goiter E04.2 [place] [id number] [place] [address] Apr, [place] [id number] [place] [address] Apr, Acute cystitis with hematuria N30.01 ; Hypercholesterolemia E78.00 ; Essential hypertension I10 ; Type 2 diabetes mellitus with hyperglycemia, without long-term current use of insulin E11.65 ; Multinodular goiter E04.2 ; Other shelter (current) drug therapy Z79.899 and BMI 40.0-44.9, adult Z68.41 [place] [id number] [place] [address] Apr, Type 2 diabetes mellitus with hyperglycemia, without long-term current use of insulin E11.65 [place] [id number] [place] [address] Apr, Recurrent major depressive disorder, in full remission F33.42 ; Anxiety F41.9 and Other shelter (current) drug therapy Z79.899 [place] [id number] [place] [address] Apr, [place] [id number] [place] [address] Apr, Acute cystitis without hematuria N30.00 ; Encounter for immunization Z23 and BMI 40.0-44.9, adult Z68.41 [place] [address] [place] [address] Mar, [place] [id number] [place] [address] Mar, [place] [id number] [place] [address] Feb, Type 2 diabetes mellitus with hyperglycemia, without long-term current use of insulin E11.65 ; Viral upper respiratory tract infection J06.9 ; Tobacco use Z72.0 ; BMI 40.0-44.9, adult Z68.41 and Food insecurity Z59.4 [place] [id number] [place] [address] Jan, Recurrent major depressive disorder, in full remission F33.42 and Anxiety F41.9 [place] [id number] [place] [address] Jan, Recurrent major depressive disorder, in full remission F33.42 [place] [id number] [place] [address] November, [place] [address] [address] November, Chronic migraine without aura without status migrainosus, not intractable G43.709 [place] [id number] [place] [address] November, Type 2 diabetes mellitus with hyperglycemia, without long-term current use of insulin E11.65 ; Dysuria R30.0 ; Acute cystitis without hematuria N30.00 ; Lumbago with sciatica, unspecified side M54.40 ; Other chronic pain G89.29 ; Chronic obstructive pulmonary disease, unspecified COPD type J44.9 ; Chest pain, unspecified type R07.9 ; Absent pedal pulses R09.89 and BMI 40.0-44.9, adult Z68.41 [place] [id number] [place] [address] Oct, Recurrent major depressive disorder, in full remission F33.42 and Anxiety F41.9 [place] [id number] [place] [address] Sep, Other chronic pain G89.29 [place] [id number] [place] [address] Aug, Other chronic pain G89.29 [place] [id number] [place] [address] Aug, Chronic obstructive pulmonary disease, unspecified COPD [...] E04.2 and BMI 40.0- 44.9, adult Z68.41 [place] [address] [address] Aug, [place] [address] [address] Jul, Type 2 diabetes mellitus with hyperglycemia, without long-term current use of insulin E11.65 [place] [address] [address] Jul, Type 2 diabetes mellitus with hyperglycemia, without long-term current use of insulin E11.65 [place] [address] [address] Jul, [place] [address] [address] Jul, Type 2 diabetes mellitus with hyperglycemia, [...] and BMI 40.0-44.9, adult Z68.41 [place] [id number] [place] [address] Jun, Migraine without status migrainosus, not intractable, unspecified migraine type G43.909 ; Hypercholesterolemia E78.00 and Lumbago with sciatica, unspecified side M54.40 [place] [id number] [place] [address] 11 Jun, 2017 Recurrent major depressive disorder, in full remission F33.42 and Anxiety F41.9 [place] [id number] [place] [address] Jun, [place] [address] [address] May, Hypercholesterolemia E78.00 ; 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.29 ; Migraine without status migrainosus, not intractable, unspecified migraine type G43.909 and Lumbago with sciatica, unspecified side M54.40 [place] [id number] [place] [address] 14 May, 2017 Multinodular goiter E04.2 [place] [id number] [place] [address] May, [place] [id number] [place] [address] 13 Apr, 2017 Multinodular goiter E04.2 [place] [id number] [place] [address] 06 Apr, 2017 Abnormal imaging of thyroid R94.6 ; Hypercholesterolemia E78.00 and 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.29 [place] [id number] [place] [address] 29 Mar, 2017 Abnormal imaging of thyroid R94.6 [place] [id number] [place] [address] Mar, Chest wall mass R22.2 [place] [id number] [place] [address] 07 Mar, 2017 Type 2 diabetes mellitus with hyperglycemia, without long-term current use of insulin E11.65 ; Gastroesophageal reflux disease with esophagitis K21.0 ; Hypercholesterolemia E78.00 ; Proteinuria, unspecified R80.9 ; 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.29 ; Chest wall mass R22.2 and Precordial pain R07.2 [place] [address] [address] Feb, Recurrent major depressive disorder, in full remission F33.42 [place] [address] [address] Feb, Recurrent major depressive disorder, in full remission F33.42 and Anxiety F41.[address] [address] Feb, [facility] [address] [id number] Jan, Dental examination Z01.20 and Dental caries K02.[address] [address] Dec, [place] [address] [address] Dec, [place] [address] [address] Dec, Type 2 diabetes mellitus with hyperosmolarity [...] and Stress incontinence (female) (male) N39.3 [facility] [address] [place] [id number] Dec, Dental caries K02.9 [facility] [id number] [place] [address] November, [facility] [id number] [place] [address] November, Essential hypertension I10 ; Other chronic pain G89.29 ; Gastroesophageal reflux disease without esophagitis K21.9 and Anxiety F41.9 [facility] [id number] [place] [id number] November, Dental examination Z01.20 [facility] [id number] [place] [address] Oct, Recurrent major depressive disorder, in full remission F33.42 [facility] [address] [address] Sep, Other chronic pain G89.29 [facility] [id number] [place] [address] Sep, Other chronic pain G89.29 and Bipolar 1 disorder F31.9 [facility] [id number] [place] [address] Aug, Other chronic pain G89.29 [facility] [id number] [place] [address] Jul, Gastroesophageal reflux disease without esophagitis K21.9 [facility] [id number] [place] [address] Jun, Migraine without status migrainosus, not intractable, unspecified migraine type G43.909 [facility] [id number] [place] [address] Jun, Type 2 diabetes mellitus with hyperosmolarity [...] ; Essential hypertension I10 and Hypercholesterolemia E78.00 [place] [id number] [place] [address] May, [address] [address] Apr, Edema, unspecified type R60.9 ; Type [...] Z23 and Stress incontinence (female) (male) N39.3 [place] [id number] [place] [address] Apr, [place] [address] [place] [address] Mar, Headache above the eye region R51 ; Lumbago with sciatica, unspecified side M54.40 ; Edema, unspecified type R60.9 and Migraine without status migrainosus, not intractable, unspecified migraine type G43.909 [place] [address] [place] [address] Mar, Chronic obstructive pulmonary disease, unspecified COPD type J44.9 ; Type 2 diabetes mellitus with hyperosmolarity without coma, without long-term current use of insulin E11.00 ; Other chronic pain G89.29 ; Migraine without status migrainosus, not intractable, unspecified migraine type G43.909 ; Left- sided chest wall pain R07.89 and Anxiety about health F41.8 [facility] [address] [address] Mar, [facility] [address] [place] [address] Mar, [facility] [id number] [place] [address] Mar, [facility] [id number] [place] [address] Feb, [facility] [id number] [place] [address] Feb, [facility] [id number] [place] [address] Feb, Chronic fatigue R53.82 ; Lumbago with sciatica, unspecified side M54.40 ; Gastroesophageal reflux disease with esophagitis K21.0 ; Other chronic pain G89.29 ; Morbid obesity due to excess calories E66.01 ; Migraine without status migrainosus, not intractable, unspecified migraine type G43.909 and Edema, unspecified type R60.9 [facility] [address] [place] [id number] Feb, Dental examination Z01.20 [facility] [address] [place] [address] Feb, [facility] [address] [place] [address] Feb, Type 2 diabetes mellitus with hyperosmolarity without coma, without long-term current use of insulin E11.00 ; Chronic fatigue R53.82 ; Gastroesophageal reflux disease with esophagitis K21.0 ; Morbid obesity due to excess calories E66.01 ; Lumbago with sciatica, unspecified side M54.40 and Other chronic pain G89.29 [facility] [address] [place] [address] Feb, Type 2 diabetes mellitus with hyperosmolarity without coma, without long-term current use of insulin E11.00 ; Chronic fatigue R53.82 ; Gastroesophageal reflux disease with esophagitis K21.0 ; Morbid obesity due to excess calories E66.01 ; Lumbago with sciatica, unspecified side M54.40 and Other chronic pain G89.29 [facility] [id number] [place] [id number] Feb, Dental examination Z01.20 [facility] [id number] [place] [address] Jan, [facility] [id number] [place] [address] Mar, [facility] [id number] [place] [id number] Feb, Dental examination V72.2 [facility] [id number] [place] [address] Oct, [facility] [id number] [place] [address] Oct, [facility] [id number] [place] [address] Aug, [facility] [id number] [place] [address] Aug, [facility] [id number] [place] [address] Jul, [facility] [id number] [place] [address] Jul, [facility] [id number] [place] [address] Jun, [facility] [id number] [place] [address] Jun, [facility] [id number] [place] [address] Jun, [facility] [place] [facility] [address] [id number] [place] [address] Jun, [facility] [place] [facility] [address] [id number] [place] [address] Jun, [facility] [place] [facility] [address] [id number] [place] [address] Jun, [facility] [place] [facility] [address] [id number] [place] [address] Jun, [facility] [place] [facility] [address] [id number] [place] [address] Jun, [facility] [place] [facility] [address] [id number] [place] [address] Jun, [facility] [place] [facility] [address] [id number] [place] [address] Jun, [facility] [place] [facility] [address] [id number] [place] [address] Jun, [facility] [place] [facility] [address] [id number] [place] [address] Jun, [facility] [place] [facility] [address] [id number] [place] [address] Jun, [facility] [place] [facility] [address] [id number] [place] [address] May, [facility] [place] [facility] [address] [id number] [place] [address] May, [facility] [place] [facility] [address] [id number] [place] [address] May, [facility] [place] [facility] [address] [id number] [place] [address] May, [facility] [place] [facility] [address] [id number] [place] [address] Apr, [facility] [place] [facility] [address] [id number] [place] [address] Apr, [facility] [place] [facility] [address] [id number] [place] [address] Apr, [facility] [place] [facility] [address] [id number] [place] [address] Apr, [facility] [place] [facility] [address] [id number] [place] [address] Apr, [facility] [place] [facility] [address] [id number] [place] [address] Apr, [facility] [place] [facility] [address] [id number] [place] [address] Apr, [facility] [place] [facility] [address] [id number] [place] [address] Apr, [facility] [place] [facility] [address] [id number] [place] [address] Apr, [facility] [place] [facility] [address] [id number] [place] [address] Apr, [facility] [place] [facility] [address] [id number] [place] [address] Mar, [facility] [place] [facility] [address] [id number] [place] [address] Mar, [facility] [place] [facility] [address] [id number] [place] [address] Feb, [facility] [place] [facility] [address] [id number] [place] [address] Feb, [facility] [place] [facility] [address] [id number] [place] [address] Feb, [facility] [place] [facility] [address] [id number] [place] [address] Feb, [facility] [place] [facility] [address] [id number] [place] [address] Jan, [facility] [place] [facility] [address] [facility] [id number] [place] [address] Jan, IMMUNIZATIONS No Known Immunizations SOCIAL HISTORY Never Assessed REASON FOR VISIT PLAN OF CARE VITAL SIGNS MEDICATIONS Unknown [...] and UTI 02/2017 Hospitalization History [facility] [place]- UTI 11/23/2017 Hospitalization History [facility] 2017
--- OUTSIDE RECORDS SUMMARY | 2019-01-30 08:30 | XMS REPORT ---
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 Active 0081631110125204 Problem Obstructive sleep apnea syndrome G47.33 Active 12544609 Problem Precordial pain R07.2 Active 52215625 Problem Primary osteoarthritis of left knee M17.12 Active 377432464059341 Problem CPAP (continuous positive airway pressure) dependence Z99.89 Active 051092562 Problem 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.29 Active 144573244 Problem Proteinuria, unspecified R80.9 Active 05223877 Problem Other chronic pain G89.29 Active 87841569 Problem Lumbago with sciatica, unspecified side M54.40 Active 912420083 Problem Hypercholesterolemia E78.00 Active 44731457 Problem Morbid obesity due to excess calories E66.01 Active 536563293 Problem Essential hypertension I10 Active 40902234 Problem Bipolar 1 disorder F31.9 Active 639684275 Problem Recurrent major depressive disorder, in full remission F33.42 Active 068543090 Problem Anxiety F41.9 Active 06267314 Problem Type 2 diabetes mellitus with hyperglycemia, without long-term current use of insulin E11.65 Active 79887669 Problem Multinodular goiter E04.2 Active 500029645 Problem Mixed incontinence urge and stress N39.46 Active 988632180 Problem TIA (transient ischemic attack) G45.9 Active 046879055 Problem Chronic fatigue R53.82 Active 92738497 Problem Paroxysmal atrial fibrillation I48.0 Active 303681343 Problem Chronic obstructive pulmonary disease, unspecified COPD type J44.9 Active 72050897 Problem Gastroesophageal reflux disease with esophagitis K21.0 Active 368737065 Problem Chronic migraine without aura without status migrainosus, not intractable G43.709 Active 453468132 Problem BMI 45.0-49.9, adult Z68.42 Active 233366445 Problem Migraine without status migrainosus, not intractable, unspecified migraine type G43.909 Active 48030249 Problem Leukocytosis, unspecified D72.829 Active 410261270 ALLERGIES No Information ENCOUNTERS Encounter Location Date Diagnosis [place] [address] [address] Jan, [place] [address] [address] Dec, Right ovarian cyst N83.201 [place] [address] [address] November, Pelvic pain R10.2 ; Cystitis N30.90 and Morbid obesity E66.01 [place] [address] [address] November, [place] [address] [address] November, Pelvic pain R10.2 and Morbid obesity E66.01 [place] [address] [address] November, [place] [address] [address] Oct, Gastroesophageal reflux disease with esophagitis K21.0 ; Morbid obesity E66.01 and Paroxysmal atrial fibrillation I48.0 [place] [address] [place] [id number] [place] [address] Oct, [place] [address] [address] Sep, Chest pain, unspecified type R07.9 ; Morbid obesity E66.01 ; Paroxysmal atrial fibrillation I48.0 ; TIA (transient ischemic attack) G45.9 and Migraine without status migrainosus, not intractable, unspecified migraine type G43.909 [place] [address] [place] [id number] [place] [address] 18 Sep, 2018 [place] [address] [address] Sep, Chronic migraine without aura without status migrainosus, not intractable G43.709 [place] [address] [address] 14 Sep, 2018 [facility] [address] [address] Sep, Chronic migraine without aura without status migrainosus, not intractable G43.709 ; Right sided weakness R53.1 and Morbid obesity E66.01 [place] [address] [address] Aug, Type 2 diabetes mellitus with hyperglycemia, without long-term current use of insulin E11.65 ; Palpitations R00.2 ; BMI 45.0-49.9, adult Z68.42 ; Candidal intertrigo B37.2 ; Chronic obstructive pulmonary disease, unspecified COPD type J44.9 ; Tobacco use Z72.0 ; Leukocytosis, unspecified D72.829 ; Hypercholesterolemia E78.00 ; Essential hypertension I10 and Migraine without status migrainosus, not intractable, unspecified migraine type G43.909 [place] [address] [address] Jul, Recurrent major depressive disorder, in full remission F33.42 and Anxiety F41.9 [place] [address] [address] Jun, [address] [address] May, Multinodular goiter E04.2 [place] [address] [address] 07 May, 2018 Microscopic hematuria R31.29 [place] [address] [address] May, Multinodular goiter E04.2 [place] [address] [place] [id number] [place] [address] Apr, [place] [address] [place] [id number] [place] [address] Apr, Acute cystitis with hematuria N30.01 ; Hypercholesterolemia E78.00 ; Essential hypertension I10 ; Type 2 diabetes mellitus with hyperglycemia, without long-term current use of insulin E11.65 ; Multinodular goiter E04.2 ; Other halfway (current) drug therapy Z79.899 and BMI 40.0-44.9, adult Z68.41 [place] [address] [place] [id number] [place] [address] Apr, Type 2 diabetes mellitus with hyperglycemia, without long-term current use of insulin E11.65 [place] [address] [place] [id number] [place] [address] Apr, Recurrent major depressive disorder, in full remission F33.42 ; Anxiety F41.9 and 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 [place] [address] [place] [id number] [place] [address] Apr, [place] [address] [place] [id number] [place] [address] Apr, Acute cystitis without hematuria N30.00 ; Encounter for immunization Z23 and BMI 40.0-44.9, adult Z68.41 [place] [address] [place] [address] Mar, [place] [address] [place] [id number] [place] [address] Mar, [place] [address] [place] [id number] [place] [address] Feb, Type 2 diabetes mellitus with hyperglycemia, without long-term current use of insulin E11.65 ; Viral upper respiratory tract infection J06.9 ; Tobacco use Z72.0 ; BMI 40.0-44.9, adult Z68.41 and Food insecurity Z59.4 [place] [address] [place] [id number] [place] [address] Jan, Recurrent major depressive disorder, in full remission F33.42 and Anxiety F41.9 [place] [address] [place] [id number] [place] [address] Jan, Recurrent major depressive disorder, in full remission F33.42 [place] [address] [place] [id number] [place] [address] November, [place] [address] [address] November, Chronic migraine without aura without status migrainosus, not intractable G43.709 [place] [id number] [place] [address] November, Type 2 diabetes mellitus with hyperglycemia, without long-term current use of insulin E11.65 ; Dysuria R30.0 ; Acute cystitis without hematuria N30.00 ; Lumbago with sciatica, unspecified side M54.40 ; Other chronic pain G89.29 ; Chronic obstructive pulmonary disease, unspecified COPD type J44.9 ; Chest pain, unspecified type R07.9 ; Absent pedal pulses R09.89 and BMI 40.0-44.9, adult Z68.41 [place] [address] [place] [id number] [place] [address] Oct, Recurrent major depressive disorder, in full remission F33.42 and Anxiety F41.9 [place] [address] [place] [id number] [place] [address] Sep, Other chronic pain G89.29 [place] [address] [place] [id number] [place] [address] Aug, Other chronic pain G89.29 [place] [address] [place] [id number] [place] [address] Aug, Chronic obstructive pulmonary disease, unspecified COPD [...] E04.2 and BMI 40.0- 44.9, adult Z68.41 [place] [address] [address] Aug, [place] [address] [address] Jul, Type 2 diabetes mellitus with hyperglycemia, without long-term current use of insulin E11.65 [place] [address] [place] [id number] [place] [address] Jul, Type 2 diabetes mellitus with hyperglycemia, without long-term current use of insulin E11.65 [place] [address] [place] [id number] [place] [address] Jul, [place] [address] [address] Jul, Type 2 diabetes mellitus with hyperglycemia, [...] immunization Z23 and BMI 40.0-44.9, adult Z68.41 [place] [address] [place] [id number] [place] [address] Jun, Migraine without status migrainosus, not intractable, unspecified migraine type G43.909 ; Hypercholesterolemia E78.00 and Lumbago with sciatica, unspecified side M54.40 [place] [address] [place] [id number] [place] [address] Jun, Recurrent major depressive disorder, in full remission F33.42 and Anxiety F41.9 [place] [address] [place] [id number] [place] [address] Jun, [place] [address] [place] [id number] [place] [address] May, Hypercholesterolemia E78.00 ; 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.29 ; Migraine without status migrainosus, not intractable, unspecified migraine type G43.909 and Lumbago with sciatica, unspecified side M54.40 [place] [address] [place] [id number] [place] [address] 14 May, 2017 Multinodular goiter E04.2 [place] [address] [place] [id number] [place] [address] May, [place] [address] [place] [id number] [place] [address] Apr, Multinodular goiter E04.2 [place] [address] [place] [id number] [place] [address] 06 Apr, 2017 Abnormal imaging of thyroid R94.6 ; Hypercholesterolemia E78.00 and 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.29 [place] [address] [place] [id number] [place] [address] Mar, Abnormal imaging of thyroid R94.6 [facility] [address] [place] [id number] [place] [address] Mar, Chest wall mass R22.2 [place] [address] [place] [address] 07 Mar, 2017 Type 2 diabetes mellitus with hyperglycemia, without long-term current use of insulin E11.65 ; Gastroesophageal reflux disease with esophagitis K21.0 ; Hypercholesterolemia E78.00 ; Proteinuria, unspecified R80.9 ; 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.29 ; Chest wall mass R22.2 and Precordial pain R07.2 [place] [address] [place] [id number] [place] [address] Feb, Recurrent major depressive disorder, in full remission F33.42 [place] [address] [address] Feb, Recurrent major depressive disorder, in full remission F33.42 and Anxiety F41.[address] [address] Feb, [facility] [address] [id number] Jan, Dental examination Z01.20 and Dental caries K02.[address] [address] Dec, [place] [address] [place] [id number] [place] [address] Dec, [place] [address] [place] [id number] [place] [address] Dec, Type 2 diabetes mellitus with hyperosmolarity [...] G43.909 and Stress incontinence (female) (male) N39.3 [facility] [address] [place] [id number] Dec, Dental caries K02.9 [facility] [address] [place] [address] November, [facility] [address] [place] [id number] [place] [address] November, Essential hypertension I10 ; Other chronic pain G89.29 ; Gastroesophageal reflux disease without esophagitis K21.9 and Anxiety F41.9 [facility] [address] [place] [id number] November, Dental examination Z01.20 [facility] [address] [place] [id number] [place] [address] Oct, Recurrent major depressive disorder, in full remission F33.42 [facility] [address] [place] [id number] [place] [address] Sep, Other chronic pain G89.29 [facility] [address] [place] [id number] [place] [address] Sep, Other chronic pain G89.29 and Bipolar 1 disorder F31.9 [facility] [address] [place] [address] Aug, Other chronic pain G89.29 [facility] [address] [place] [address] Jul, Gastroesophageal reflux disease without esophagitis K21.9 [facility] [address] [place] [address] Jun, Migraine without status migrainosus, not intractable, unspecified migraine type G43.909 [facility] [address] [address] Jun, Type 2 diabetes mellitus with hyperosmolarity [...] ; Essential hypertension I10 and Hypercholesterolemia E78.[address] [address] May, [address] [address] Apr, Edema, unspecified type R60.9 ; Type [...] Z23 and Stress incontinence (female) (male) N39.3 [place] [address] [place] [id number] [place] [address] Apr, [place] [address] [place] [id number] [place] [address] Mar, Headache above the eye region R51 ; Lumbago with sciatica, unspecified side M54.40 ; Edema, unspecified type R60.9 and Migraine without status migrainosus, not intractable, unspecified migraine type G43.[address] [address] Mar, Chronic obstructive pulmonary disease, unspecified COPD type J44.9 ; Type 2 diabetes mellitus with hyperosmolarity without coma, without long-term current use of insulin E11.00 ; Other chronic pain G89.29 ; Migraine without status migrainosus, not intractable, unspecified migraine type G43.909 ; Left- sided chest wall pain R07.89 and Anxiety about health F41.8 [facility] [address] [address] Mar, [facility] [address] [address] Mar, [facility] [address] [place] [address] Mar, [facility] [address] [place] [address] Feb, [facility] [address] [place] [address] Feb, [place] [address] [place] [id number] [place] [address] Feb, Chronic fatigue R53.82 ; Lumbago with sciatica, unspecified side M54.40 ; Gastroesophageal reflux disease with esophagitis K21.0 ; Other chronic pain G89.29 ; Morbid obesity due to excess calories E66.01 ; Migraine without status migrainosus, not intractable, unspecified migraine type G43.909 and Edema, unspecified type R60.9 [facility] [address] [id number] Feb, Dental examination Z01.20 [facility] [address] [address] Feb, [facility] [address] [place] [address] Feb, Type 2 diabetes mellitus with hyperosmolarity without coma, without long-term current use of insulin E11.00 ; Chronic fatigue R53.82 ; Gastroesophageal reflux disease with esophagitis K21.0 ; Morbid obesity due to excess calories E66.01 ; Lumbago with sciatica, unspecified side M54.40 and Other chronic pain G89.29 [facility] [address] [place] [address] Feb, Type 2 diabetes mellitus with hyperosmolarity without coma, without long-term current use of insulin E11.00 ; Chronic fatigue R53.82 ; Gastroesophageal reflux disease with esophagitis K21.0 ; Morbid obesity due to excess calories E66.01 ; Lumbago with sciatica, unspecified side M54.40 and Other chronic pain G89.29 [facility] [address] [place] [id number] [place] [id number] Feb, Dental examination Z01.20 [facility] [address] [place] [id number] [place] [address] Jan, [facility] [address] [address] Mar, [facility] [address] [place] [id number] [place] [id number] Feb, Dental examination V72.2 [facility] [address] [place] [id number] [place] [address] Oct, [facility] [address] [place] [id number] [place] [address] Oct, [facility] [address] [place] [id number] [place] [address] Aug, [facility] [address] [place] [id number] [place] [address] Aug, [facility] [address] [place] [id number] [place] [address] Jul, [facility] [address] [place] [id number] [place] [address] Jul, [facility] [address] [place] [id number] [place] [address] Jun, [facility] [address] [place] [id number] [place] [address] Jun, [facility] [address] [place] [id number] [place] [address] Jun, [facility] [place] [facility] [address] [id number] [place] [address] Jun, [facility] [place] [facility] [address] [id number] [place] [address] Jun, [facility] [place] [facility] [address] [id number] [place] [address] Jun, [facility] [place] [facility] [address] [id number] [place] [address] Jun, [facility] [place] [facility] [address] [id number] [place] [address] Jun, [facility] [place] [facility] [address] [id number] [place] [address] Jun, [facility] [place] [facility] [address] [id number] [place] [address] Jun, [facility] [place] [facility] [address] [id number] [place] [address] Jun, [facility] [place] [facility] [address] [id number] [place] [address] Jun, [facility] [place] [facility] [address] [id number] [place] [address] Jun, [facility] [place] [facility] [address] [id number] [place] [address] May, [facility] [place] [facility] [address] [id number] [address] May, [facility] [place] [facility] [address] [id number] [place] [address] May, [facility] [place] [facility] [address] [id number] [place] [address] May, [facility] [place] [facility] [address] [id number] [place] [address] Apr, [facility] [place] [facility] [address] [id number] [place] [address] Apr, [facility] [place] [facility] [address] [id number] [place] [address] Apr, [facility] [place] [facility] [address] [id number] [place] [address] Apr, [facility] [place] [facility] [address] [id number] [place] [address] Apr, [facility] [place] [facility] [address] [id number] [place] [address] Apr, [facility] [place] [facility] [address] [id number] [place] [address] Apr, [facility] [place] [facility] [address] [id number] [place] [address] Apr, [facility] [place] [facility] [address] [id number] [place] [address] Apr, [facility] [place] [facility] [address] [id number] [place] [address] Apr, [facility] [place] [facility] [address] [id number] [place] [address] Mar, [facility] [place] [facility] [address] [id number] [place] [address] Mar, [facility] [place] [facility] [address] [id number] [place] [address] Feb, [facility] [place] [facility] [address] [id number] [place] [address] Feb, [facility] [place] [facility] [address] [id number] [place] [address] Feb, [facility] [place] [facility] [address] [id number] [place] [address] Feb, [facility] [place] [facility] [address] [id number] [place] [address] Jan, [facility] [address] [facility] [id number] [place] [address] Jan, IMMUNIZATIONS Vaccine Route Administration Date Status PHENERGAN 50MG/ML IM Intramuscular September 30, 2018 Administered TORADOL (IM) 60 MG/2ML (UP TO 15 MG) IM Intramuscular September 30, 2018 Administered SOCIAL HISTORY Never Assessed REASON FOR VISIT Injection--tcuppettRN PLAN OF CARE VITAL SIGNS MEDICATIONS Unknown Medications RESULTS No Results PROCEDURES Procedure Date Ordered Result Body Site TORADOL (IM) 60 MG/2ML (UP TO 15 MG) September 30, 2018 THER/PROPH/DIAG INJ, SC/IM September 30, 2018 PHENERGAN 50MG/ML September 30, 2018 INSTRUCTIONS MEDICATIONS ADMINISTERED No Known Medications [...] and UTI 02/2017 Hospitalization History [facility] [place]- UTI 11/23/2017 Hospitalization History [facility]I 2017
--- OUTSIDE RECORDS SUMMARY | 2019-01-30 08:30 | XMS REPORT ---
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 Active [id number] Problem Obstructive sleep apnea syndrome G47.33 Active 59040126 Problem Precordial pain R07.2 Active 75336733 Problem Primary osteoarthritis of left knee M17.12 Active 851429122942884 Problem CPAP (continuous positive airway pressure) dependence Z99.89 Active 991746107 Problem 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.29 Active 128806865 Problem Proteinuria, unspecified R80.9 Active 45748157 Problem Other chronic pain G89.29 Active 83551584 Problem Lumbago with sciatica, unspecified side M54.40 Active 676773987 Problem Hypercholesterolemia E78.00 Active 60456458 Problem Morbid obesity due to excess calories E66.01 Active 438426749 Problem Essential hypertension I10 Active 85110376 Problem Bipolar 1 disorder F31.9 Active 058865337 Problem Recurrent major depressive disorder, in full remission F33.42 Active 581340961 Problem Anxiety F41.9 Active 52298106 Problem Type 2 diabetes mellitus with hyperglycemia, without long-term current use of insulin E11.65 Active 79295218 Problem Multinodular goiter E04.2 Active 131202815 Problem Mixed incontinence urge and stress N39.46 Active 565112853 Problem TIA (transient ischemic attack) G45.9 Active 474065045 Problem Chronic fatigue R53.82 Active 65929264 Problem Paroxysmal atrial fibrillation I48.0 Active 555120643 Problem Chronic obstructive pulmonary disease, unspecified COPD type J44.9 Active 65286455 Problem Gastroesophageal reflux disease with esophagitis K21.0 Active 106912489 Problem Chronic migraine without aura without status migrainosus, not intractable G43.709 Active 554137163 Problem BMI 45.0-49.9, adult Z68.42 Active 438061844 Problem Migraine without status migrainosus, not intractable, unspecified migraine type G43.909 Active 22176671 Problem Leukocytosis, unspecified D72.829 Active 059757252 ALLERGIES No Information ENCOUNTERS Encounter Location Date Diagnosis [place] [id number] [place] [address] Jan, [place] [address] [address] Dec, Right ovarian cyst N83.201 [place] [address] [address] November, Pelvic pain R10.2 ; Cystitis N30.90 and Morbid obesity E66.01 [place] [address] [address] November, [place] [address] [address] November, Pelvic pain R10.2 and Morbid obesity E66.01 [place] [address] [address] November, [place] [id number] [place] [address] Oct, Gastroesophageal reflux disease with esophagitis K21.0 ; Morbid obesity E66.01 and Paroxysmal atrial fibrillation I48.0 [place] [id number] [place] [address] Oct, [place] [address] [address] Sep, Chest pain, unspecified type R07.9 ; Morbid obesity E66.01 ; Paroxysmal atrial fibrillation I48.0 ; TIA (transient ischemic attack) G45.9 and Migraine without status migrainosus, not intractable, unspecified migraine type G43.909 [place] [id number] [place] [address] 18 Sep, 2018 [place] [address] [address] Sep, Chronic migraine without aura without status migrainosus, not intractable G43.709 [place] [address] [address] Sep, [facility] [address] [address] Sep, Chronic migraine without aura without status migrainosus, not intractable G43.709 ; Right sided weakness R53.1 and Morbid obesity E66.01 [place] [address] [address] Aug, Type 2 diabetes mellitus with hyperglycemia, without long-term current use of insulin E11.65 ; Palpitations R00.2 ; BMI 45.0-49.9, adult Z68.42 ; Candidal intertrigo B37.2 ; Chronic obstructive pulmonary disease, unspecified COPD type J44.9 ; Tobacco use Z72.0 ; Leukocytosis, unspecified D72.829 ; Hypercholesterolemia E78.00 ; Essential hypertension I10 and Migraine without status migrainosus, not intractable, unspecified migraine type G43.909 [place] [address] [address] Jul, Recurrent major depressive disorder, in full remission F33.42 and Anxiety F41.9 [place] [id number] [place] [address] Jun, [place] [address] [address] May, Multinodular goiter E04.2 [place] [address] [address] 07 May, 2018 Microscopic hematuria R31.29 [place] [address] [address] May, Multinodular goiter E04.2 [place] [id number] [place] [address] Apr, [place] [id number] [place] [address] Apr, Acute cystitis with hematuria N30.01 ; Hypercholesterolemia E78.00 ; Essential hypertension I10 ; Type 2 diabetes mellitus with hyperglycemia, without long-term current use of insulin E11.65 ; Multinodular goiter E04.2 ; Other skilled nursing (current) drug therapy Z79.899 and BMI 40.0-44.9, adult Z68.41 [place] [id number] [place] [address] Apr, Type 2 diabetes mellitus with hyperglycemia, without long-term current use of insulin E11.65 [place] [id number] [place] [address] Apr, Recurrent major depressive disorder, in full remission F33.42 ; Anxiety F41.9 and Other skilled nursing (current) drug therapy Z79.899 [place] [id number] [place] [address] Apr, [place] [id number] [place] [address] Apr, Acute cystitis without hematuria N30.00 ; Encounter for immunization Z23 and BMI 40.0-44.9, adult Z68.41 [place] [id number] [place] [address] Mar, [place] [id number] [place] [address] Mar, [place] [id number] [place] [address] Feb, Type 2 diabetes mellitus with hyperglycemia, without long-term current use of insulin E11.65 ; Viral upper respiratory tract infection J06.9 ; Tobacco use Z72.0 ; BMI 40.0-44.9, adult Z68.41 and Food insecurity Z59.4 [place] [id number] [place] [address] Jan, Recurrent major depressive disorder, in full remission F33.42 and Anxiety F41.9 [place] [id number] [place] [address] Jan, Recurrent major depressive disorder, in full remission F33.42 [place] [id number] [place] [address] November, [place] [address] [address] November, Chronic migraine without aura without status migrainosus, not intractable G43.709 [place] [id number] [place] [address] November, Type 2 diabetes mellitus with hyperglycemia, without long-term current use of insulin E11.65 ; Dysuria R30.0 ; Acute cystitis without hematuria N30.00 ; Lumbago with sciatica, unspecified side M54.40 ; Other chronic pain G89.29 ; Chronic obstructive pulmonary disease, unspecified COPD type J44.9 ; Chest pain, unspecified type R07.9 ; Absent pedal pulses R09.89 and BMI 40.0-44.9, adult Z68.41 [place] [id number] [place] [address] Oct, Recurrent major depressive disorder, in full remission F33.42 and Anxiety F41.9 [place] [id number] [place] [address] Sep, Other chronic pain G89.29 [place] [id number] [place] [address] Aug, Other chronic pain G89.29 [place] [id number] [place] [address] Aug, Chronic obstructive pulmonary disease, unspecified COPD [...] E04.2 and BMI 40.0- 44.9, adult Z68.41 [place] [address] [address] Aug, [place] [address] [address] Jul, Type 2 diabetes mellitus with hyperglycemia, without long-term current use of insulin E11.65 [place] [address] [address] Jul, Type 2 diabetes mellitus with hyperglycemia, without long-term current use of insulin E11.65 [place] [address] [address] Jul, [place] [address] [address] Jul, Type 2 diabetes mellitus with hyperglycemia, [...] immunization Z23 and BMI 40.0-44.9, adult Z68.41 [place] [id number] [place] [address] Jun, Migraine without status migrainosus, not intractable, unspecified migraine type G43.909 ; Hypercholesterolemia E78.00 and Lumbago with sciatica, unspecified side M54.40 [place] [id number] [place] [address] 11 Jun, 2017 Recurrent major depressive disorder, in full remission F33.42 and Anxiety F41.9 [place] [id number] [place] [address] Jun, [place] [address] [address] May, Hypercholesterolemia E78.00 ; 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.29 ; Migraine without status migrainosus, not intractable, unspecified migraine type G43.909 and Lumbago with sciatica, unspecified side M54.40 [place] [id number] [place] [address] 14 May, 2017 Multinodular goiter E04.2 [place] [id number] [place] [address] May, [place] [id number] [place] [address] 13 Apr, 2017 Multinodular goiter E04.2 [place] [id number] [place] [address] 06 Apr, 2017 Abnormal imaging of thyroid R94.6 ; Hypercholesterolemia E78.00 and 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.29 [place] [id number] [place] [address] 29 Mar, 2017 Abnormal imaging of thyroid R94.6 [place] [id number] [place] [address] Mar, Chest wall mass R22.2 [place] [id number] [place] [address] 07 Mar, 2017 Type 2 diabetes mellitus with hyperglycemia, without long-term current use of insulin E11.65 ; Gastroesophageal reflux disease with esophagitis K21.0 ; Hypercholesterolemia E78.00 ; Proteinuria, unspecified R80.9 ; 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.29 ; Chest wall mass R22.2 and Precordial pain R07.2 [place] [address] [address] Feb, Recurrent major depressive disorder, in full remission F33.42 [place] [address] [address] Feb, Recurrent major depressive disorder, in full remission F33.42 and Anxiety F41.[address] [address] Feb, [facility] [address] [id number] Jan, Dental examination Z01.20 and Dental caries K02.[address] [address] Dec, [place] [address] [address] Dec, [place] [address] [address] Dec, Type 2 diabetes mellitus with hyperosmolarity [...] G43.909 and Stress incontinence (female) (male) N39.3 [facility] [address] [place] [id number] Dec, Dental caries K02.9 [facility] [id number] [place] [address] November, [facility] [id number] [place] [address] November, Essential hypertension I10 ; Other chronic pain G89.29 ; Gastroesophageal reflux disease without esophagitis K21.9 and Anxiety F41.9 [facility] [id number] [place] [phone] November, Dental examination Z01.20 [facility] [id number] [place] [address] Oct, Recurrent major depressive disorder, in full remission F33.42 [facility] [address] [address] Sep, Other chronic pain G89.29 [facility] [id number] [place] [address] Sep, Other chronic pain G89.29 and Bipolar 1 disorder F31.9 [facility] [id number] [place] [address] Aug, Other chronic pain G89.29 [facility] [id number] [place] [address] Jul, Gastroesophageal reflux disease without esophagitis K21.9 [facility] [id number] [place] [address] Jun, Migraine without status migrainosus, not intractable, unspecified migraine type G43.909 [facility] [id number] [place] [address] Jun, Type 2 diabetes mellitus with hyperosmolarity [...] ; Essential hypertension I10 and Hypercholesterolemia E78.00 [place] [id number] [place] [address] May, [address] [address] Apr, Edema, unspecified type R60.9 ; Type [...] Z23 and Stress incontinence (female) (male) N39.3 [place] [id number] [place] [address] Apr, [place] [id number] [place] [address] Mar, Headache above the eye region R51 ; Lumbago with sciatica, unspecified side M54.40 ; Edema, unspecified type R60.9 and Migraine without status migrainosus, not intractable, unspecified migraine type G43.909 [place] [id number] [place] [address] Mar, Chronic obstructive pulmonary disease, unspecified COPD type J44.9 ; Type 2 diabetes mellitus with hyperosmolarity without coma, without long-term current use of insulin E11.00 ; Other chronic pain G89.29 ; Migraine without status migrainosus, not intractable, unspecified migraine type G43.909 ; Left- sided chest wall pain R07.89 and Anxiety about health F41.8 [facility] [address] [address] Mar, [facility] [id number] [place] [address] Mar, [facility] [id number] [place] [address] Mar, [facility] [id number] [place] [address] Feb, [facility] [id number] [place] [address] Feb, [facility] [id number] [place] [address] Feb, Chronic fatigue R53.82 ; Lumbago with sciatica, unspecified side M54.40 ; Gastroesophageal reflux disease with esophagitis K21.0 ; Other chronic pain G89.29 ; Morbid obesity due to excess calories E66.01 ; Migraine without status migrainosus, not intractable, unspecified migraine type G43.909 and Edema, unspecified type R60.9 [facility] [address] [place] [id number] Feb, Dental examination Z01.20 [facility] [id number] [place] [address] Feb, [facility] [address] [place] [address] Feb, Type 2 diabetes mellitus with hyperosmolarity without coma, without long-term current use of insulin E11.00 ; Chronic fatigue R53.82 ; Gastroesophageal reflux disease with esophagitis K21.0 ; Morbid obesity due to excess calories E66.01 ; Lumbago with sciatica, unspecified side M54.40 and Other chronic pain G89.29 [facility] [address] [place] [address] Feb, Type 2 diabetes mellitus with hyperosmolarity without coma, without long-term current use of insulin E11.00 ; Chronic fatigue R53.82 ; Gastroesophageal reflux disease with esophagitis K21.0 ; Morbid obesity due to excess calories E66.01 ; Lumbago with sciatica, unspecified side M54.40 and Other chronic pain G89.29 [facility] [id number] [place] [phone] Feb, Dental examination Z01.20 [facility] [id number] [place] [address] Jan, [facility] [id number] [place] [address] Mar, [facility] [id number] [place] [id number] Feb, Dental examination V72.2 [facility] [id number] [place] [address] Oct, [facility] [id number] [place] [address] Oct, [facility] [id number] [place] [address] Aug, [facility] [id number] [place] [address] Aug, [facility] [id number] [place] [address] Jul, [facility] [id number] [place] [address] Jul, [facility] [id number] [place] [address] Jun, [facility] [id number] [place] [address] Jun, [facility] [id number] [place] [address] Jun, [facility] [place] [facility] [address] [id number] [place] [address] Jun, [facility] [place] [facility] [address] [id number] [place] [address] Jun, [facility] [place] [facility] [address] [id number] [place] [address] Jun, [facility] [place] [facility] [address] [id number] [place] [address] Jun, [facility] [place] [facility] [address] [id number] [place] [address] Jun, [facility] [place] [facility] [address] [id number] [place] [address] Jun, [facility] [place] [facility] [address] [id number] [place] [address] Jun, [facility] [place] [facility] [address] [id number] [place] [address] Jun, [facility] [place] [facility] [address] [id number] [place] [address] Jun, [facility] [place] [facility] [address] [id number] [place] [address] Jun, [facility] [place] [facility] [address] [id number] [place] [address] May, [facility] [place] [facility] [address] [id number] [place] [address] May, [facility] [place] [facility] [address] [id number] [place] [address] May, [facility] [place] [facility] [address] [id number] [place] [address] May, [facility] [place] [facility] [address] [id number] [place] [address] Apr, [facility] [place] [facility] [address] [id number] [place] [address] Apr, [facility] [place] [facility] [address] [id number] [place] [address] Apr, [facility] [place] [facility] [address] [id number] [place] [address] Apr, [facility] [place] [facility] [address] [id number] [place] [address] Apr, [facility] [place] [facility] [address] [id number] [place] [address] Apr, [facility] [place] [facility] [address] [id number] [place] [address] Apr, [facility] [place] [facility] [address] [id number] [place] [address] Apr, [facility] [place] [facility] [address] [id number] [place] [address] Apr, [facility] [place] [facility] [address] [id number] [place] [address] Apr, [facility] [place] [facility] [address] [id number] [place] [address] Mar, [facility] [place] [facility] [address] [id number] [place] [address] Mar, [facility] [place] [facility] [address] [id number] [place] [address] Feb, [facility] [place] [facility] [address] [id number] [place] [address] Feb, [facility] [place] [facility] [address] [id number] [place] [address] Feb, [facility] [place] [facility] [address] [id number] [place] [address] Feb, [facility] [place] [facility] [address] [id number] [place] [address] Jan, [facility] [place] [facility] [address] [facility] [id number] [place] [address] Jan, IMMUNIZATIONS No Known Immunizations SOCIAL HISTORY [...] and UTI 02/2017 Hospitalization History [facility] [place]- UTI 11/23/2017 [facility]ization History [facility] 2017
--- OUTSIDE RECORDS SUMMARY | 2019-01-30 08:31 | XMS REPORT ---
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 Active [id number] Problem Obstructive sleep apnea syndrome G47.33 Active 84888811 Problem Precordial pain R07.2 Active 42155612 Problem Primary osteoarthritis of left knee M17.12 Active 086776506706906 Problem CPAP (continuous positive airway pressure) dependence Z99.89 Active 026264986 Problem 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.29 Active 022941110 Problem Proteinuria, unspecified R80.9 Active 58598331 Problem Other chronic pain G89.29 Active 59073862 Problem Lumbago with sciatica, unspecified side M54.40 Active 183411360 Problem Hypercholesterolemia E78.00 Active 86741840 Problem Morbid obesity due to excess calories E66.01 Active 026519502 Problem Essential hypertension I10 Active 32765871 Problem Bipolar 1 disorder F31.9 Active 950229466 Problem Recurrent major depressive disorder, in full remission F33.42 Active 359553090 Problem Anxiety F41.9 Active 83387475 Problem Type 2 diabetes mellitus with hyperglycemia, without long-term current use of insulin E11.65 Active 00738457 Problem Multinodular goiter E04.2 Active 119045980 Problem Mixed incontinence urge and stress N39.46 Active 088825039 Problem TIA (transient ischemic attack) G45.9 Active 728894400 Problem Chronic fatigue R53.82 Active 19113900 Problem Paroxysmal atrial fibrillation I48.0 Active 028547514 Problem Chronic obstructive pulmonary disease, unspecified COPD type J44.9 Active 75513296 Problem Gastroesophageal reflux disease with esophagitis K21.0 Active 327184881 Problem Chronic migraine without aura without status migrainosus, not intractable G43.709 Active 728467870 Problem BMI 45.0-49.9, adult Z68.42 Active 862008862 Problem Migraine without status migrainosus, not intractable, unspecified migraine type G43.909 Active 94138096 Problem Leukocytosis, unspecified D72.829 Active 518669913 ALLERGIES Substance Reaction Event Type Date Status Iodine Unknown Drug Allergy Oct, Active Penicillins Unknown Non Drug Allergy Oct, Active ENCOUNTERS Encounter Location Date Diagnosis [place] [address] [address] Jan, [place] [address] [address] Dec, Right ovarian cyst N83.201 [place] [address] [address] November, Pelvic pain R10.2 ; Cystitis N30.90 and Morbid obesity E66.01 [place] [address] [address] November, [place] [address] [address] November, Pelvic pain R10.2 and Morbid obesity E66.01 [place] [address] [address] November, [place] [address] [place] [id number] [place] [address] Oct, Gastroesophageal reflux disease with esophagitis K21.0 ; Morbid obesity E66.01 and Paroxysmal atrial fibrillation I48.0 [place] [address] [place] [id number] [place] [address] Oct, [place] [address] [address] Sep, Chest pain, unspecified type R07.9 ; Morbid obesity E66.01 ; Paroxysmal atrial fibrillation I48.0 ; TIA (transient ischemic attack) G45.9 and Migraine without status migrainosus, not intractable, unspecified migraine type G43.909 [place] [address] [place] [address] 18 Sep, 2018 [facility] [address] [address] 15 Sep, 2018 Chronic migraine without aura without status migrainosus, not intractable G43.709 [facility] [address] [address] 14 Sep, 2018 [facility] [address] [address] 09 Sep, 2018 Chronic migraine without aura without status migrainosus, not intractable G43.709 ; Right sided weakness R53.1 and Morbid obesity E66.01 [place] [address] [address] Aug, Type 2 diabetes mellitus with hyperglycemia, without long-term current use of insulin E11.65 ; Palpitations R00.2 ; BMI 45.0-49.9, adult Z68.42 ; Candidal intertrigo B37.2 ; Chronic obstructive pulmonary disease, unspecified COPD type J44.9 ; Tobacco use Z72.0 ; Leukocytosis, unspecified D72.829 ; Hypercholesterolemia E78.00 ; Essential hypertension I10 and Migraine without status migrainosus, not intractable, unspecified migraine type G43.909 [place] [address] [address] Jul, Recurrent major depressive disorder, in full remission F33.42 and Anxiety F41.9 [place] [address] [address] Jun, [place] [address] [address] May, Multinodular goiter E04.2 [place] [address] [address] 07 May, 2018 Microscopic hematuria R31.29 [place] [address] [address] May, Multinodular goiter E04.2 [place] [address] [place] [id number] [place] [address] Apr, [place] [address] [address] Apr, Acute cystitis with hematuria N30.01 ; Hypercholesterolemia E78.00 ; Essential hypertension I10 ; Type 2 diabetes mellitus with hyperglycemia, without long-term current use of insulin E11.65 ; Multinodular goiter E04.2 ; Other jail (current) drug therapy Z79.899 and BMI 40.0-44.9, adult Z68.41 [place] [address] [place] [id number] [place] [address] Apr, Type 2 diabetes mellitus with hyperglycemia, without long-term current use of insulin E11.65 [place] [address] [place] [id number] [place] [address] Apr, Recurrent major depressive disorder, in full remission F33.42 ; Anxiety F41.9 and Other jail (current) drug therapy Z79.899 [place] [address] [place] [id number] [place] [address] Apr, [place] [address] [place] [id number] [place] [address] Apr, Acute cystitis without hematuria N30.00 ; Encounter for immunization Z23 and BMI 40.0-44.9, adult Z68.41 [place] [address] [place] [id number] [place] [address] Mar, [place] [address] [place] [id number] [place] [address] Mar, [place] [address] [place] [id number] [place] [address] Feb, Type 2 diabetes mellitus with hyperglycemia, without long-term current use of insulin E11.65 ; Viral upper respiratory tract infection J06.9 ; Tobacco use Z72.0 ; BMI 40.0-44.9, adult Z68.41 and Food insecurity Z59.4 [place] [address] [place] [id number] [place] [address] Jan, Recurrent major depressive disorder, in full remission F33.42 and Anxiety F41.9 [place] [address] [place] [id number] [place] [address] Jan, Recurrent major depressive disorder, in full remission F33.42 [place] [address] [place] [id number] [place] [address] November, [place] [address] [address] November, Chronic migraine without aura without status migrainosus, not intractable G43.709 [place] [address] [place] [id number] [place] [address] November, Type 2 diabetes mellitus with hyperglycemia, without long-term current use of insulin E11.65 ; Dysuria R30.0 ; Acute cystitis without hematuria N30.00 ; Lumbago with sciatica, unspecified side M54.40 ; Other chronic pain G89.29 ; Chronic obstructive pulmonary disease, unspecified COPD type J44.9 ; Chest pain, unspecified type R07.9 ; Absent pedal pulses R09.89 and BMI 40.0-44.9, adult Z68.41 [place] [address] [place] [address] Oct, Recurrent major depressive disorder, in full remission F33.42 and Anxiety F41.9 [place] [address] [place] [id number] [place] [address] Sep, Other chronic pain G89.29 [place] [address] [place] [id number] [place] [address] Aug, Other chronic pain G89.29 [place] [address] [place] [id number] [place] [address] Aug, Chronic obstructive pulmonary disease, unspecified COPD [...] E04.2 and BMI 40.0- 44.9, adult Z68.41 [place] [address] [address] Aug, [place] [address] [address] Jul, Type 2 diabetes mellitus with hyperglycemia, without long-term current use of insulin E11.65 [place] [address] [place] [id number] [place] [address] Jul, Type 2 diabetes mellitus with hyperglycemia, without long-term current use of insulin E11.65 [place] [address] [place] [id number] [place] [address] Jul, [place] [address] [address] Jul, Type 2 diabetes mellitus with hyperglycemia, [...] and BMI 40.0-44.9, adult Z68.41 [place] [address] [place] [id number] [place] [address] Jun, Migraine without status migrainosus, not intractable, unspecified migraine type G43.909 ; Hypercholesterolemia E78.00 and Lumbago with sciatica, unspecified side M54.40 [place] [address] [place] [id number] [place] [address] 11 Jun, 2017 Recurrent major depressive disorder, in full remission F33.42 and Anxiety F41.9 [place] [address] [place] [id number] [place] [address] Jun, [place] [address] [place] [id number] [place] [address] May, Hypercholesterolemia E78.00 ; 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.29 ; Migraine without status migrainosus, not intractable, unspecified migraine type G43.909 and Lumbago with sciatica, unspecified side M54.40 [place] [address] [place] [id number] [place] [address] 14 May, 2017 Multinodular goiter E04.2 [place] [address] [place] [id number] [place] [address] 06 May, 2017 [place] [address] [place] [id number] [place] [address] 13 Apr, 2017 Multinodular goiter E04.2 [place] [address] [place] [id number] [place] [address] 06 Apr, 2017 Abnormal imaging of thyroid R94.6 ; Hypercholesterolemia E78.00 and 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.29 [place] [address] [address] 29 Mar, 2017 Abnormal imaging of thyroid R94.6 [place] [address] [place] [id number] [place] [address] Mar, Chest wall mass R22.2 [place] [address] [place] [address] 07 Mar, 2017 Type 2 diabetes mellitus with hyperglycemia, without long-term current use of insulin E11.65 ; Gastroesophageal reflux disease with esophagitis K21.0 ; Hypercholesterolemia E78.00 ; Proteinuria, unspecified R80.9 ; 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.29 ; Chest wall mass R22.2 and Precordial pain R07.2 [place] [address] [address] Feb, Recurrent major depressive disorder, in full remission F33.42 [place] [address] [address] Feb, Recurrent major depressive disorder, in full remission F33.42 and Anxiety F41.9 [place] [address] [place] [id number] [place] [address] Feb, [facility] [address] [place] [id number] [place] [id number] Jan, Dental examination Z01.20 and Dental caries K02.9 [place] [id number] [place] [address] Dec, [place] [address] [place] [id number] [place] [address] Dec, [place] [address] [place] [id number] [place] [address] Dec, Type 2 diabetes mellitus with hyperosmolarity [...] G43.909 and Stress incontinence (female) (male) N39.3 [facility] [address] [place] [id number] [id number] Dec, Dental caries K02.9 [facility] [address] [place] [address] November, [facility] [address] [place] [id number] [place] [address] November, Essential hypertension I10 ; Other chronic pain G89.29 ; Gastroesophageal reflux disease without esophagitis K21.9 and Anxiety F41.9 [facility] [address] [id number] November, Dental examination Z01.20 [facility] [address] [place] [id number] [place] [address] Oct, Recurrent major depressive disorder, in full remission F33.42 [facility] [address] [place] [id number] [place] [address] Sep, Other chronic pain G89.29 [facility] [address] [place] [id number] [place] [address] Sep, Other chronic pain G89.29 and Bipolar 1 disorder F31.9 [facility] [address] [place] [address] Aug, Other chronic pain G89.29 [facility] [address] [place] [address] Jul, Gastroesophageal reflux disease without esophagitis K21.9 [facility] [address] [place] [address] Jun, Migraine without status migrainosus, not intractable, unspecified migraine type G43.909 [facility] [address] [place] [address] Jun, Type 2 diabetes mellitus with hyperosmolarity [...] ; Essential hypertension I10 and Hypercholesterolemia E78.00 [place] [id number] [place] [address] May, [address] [address] Apr, Edema, unspecified type R60.9 ; Type [...] Z23 and Stress incontinence (female) (male) N39.3 [place] [id number] [place] [address] Apr, [place] [address] [place] [id number] [place] [address] Mar, Headache above the eye region R51 ; Lumbago with sciatica, unspecified side M54.40 ; Edema, unspecified type R60.9 and Migraine without status migrainosus, not intractable, unspecified migraine type G43.909 [place] [address] [address] Mar, Chronic obstructive pulmonary disease, unspecified COPD type J44.9 ; Type 2 diabetes mellitus with hyperosmolarity without coma, without long-term current use of insulin E11.00 ; Other chronic pain G89.29 ; Migraine without status migrainosus, not intractable, unspecified migraine type G43.909 ; Left- sided chest wall pain R07.89 and Anxiety about health F41.8 [facility] [address] [address] Mar, [facility] [address] [address] Mar, [facility] [address] [place] [address] Mar, [facility] [address] [place] [id number] [place] [address] Feb, [facility] [address] [place] [address] Feb, [facility] [address] [place] [id number] [place] [address] Feb, Chronic fatigue R53.82 ; Lumbago with sciatica, unspecified side M54.40 ; Gastroesophageal reflux disease with esophagitis K21.0 ; Other chronic pain G89.29 ; Morbid obesity due to excess calories E66.01 ; Migraine without status migrainosus, not intractable, unspecified migraine type G43.909 and Edema, unspecified type R60.9 [facility] [address] [place] [id number] Feb, Dental examination Z01.20 [place] [address] [address] Feb, [place] [address] [place] [id number] [place] [address] Feb, Type 2 diabetes mellitus with hyperosmolarity without coma, without long-term current use of insulin E11.00 ; Chronic fatigue R53.82 ; Gastroesophageal reflux disease with esophagitis K21.0 ; Morbid obesity due to excess calories E66.01 ; Lumbago with sciatica, unspecified side M54.40 and Other chronic pain G89.29 [place] [address] [place] [address] 03 Aug, 2016 Type 2 diabetes mellitus with hyperosmolarity without coma, without long-term current use of insulin E11.00 ; Chronic fatigue R53.82 ; Gastroesophageal reflux disease with esophagitis K21.0 ; Morbid obesity due to excess calories E66.01 ; Lumbago with sciatica, unspecified side M54.40 and Other chronic pain G89.29 [facility] [address] [place] [id number] [place] [id number] Feb, Dental examination Z01.20 [facility] [address] [place] [id number] [place] [address] Jan, [facility] [address] [address] Mar, [facility] [address] [place] [id number] [place] [id number] Feb, Dental examination V72.2 [facility] [address] [place] [id number] [place] [address] Oct, [facility] [address] [place] [id number] [place] [address] Oct, [facility] [address] [place] [id number] [place] [address] Aug, [facility] [address] [place] [id number] [place] [address] Aug, [facility] [address] [place] [id number] [place] [address] Jul, [facility] [address] [place] [id number] [place] [address] Jul, [facility] [address] [place] [id number] [place] [address] Jun, [facility] [address] [place] [id number] [place] [address] Jun, [facility] [address] [place] [id number] [place] [address] Jun, [facility] [place] [facility] [address] [id number] [place] [address] Jun, [facility] [place] [facility] [address] [id number] [place] [address] Jun, [facility] [place] [facility] [address] [id number] [place] [address] Jun, [facility] [place] [facility] [address] [id number] [place] [address] Jun, [facility] [place] [facility] [address] [id number] [place] [address] Jun, [facility] [place] [facility] [address] [id number] [place] [address] Jun, [facility] [place] [facility] [address] [id number] [place] [address] Jun, [facility] [place] [facility] [address] [id number] [place] [address] Jun, [facility] [place] [facility] [address] [id number] [place] [address] Jun, [facility] [place] [facility] [address] [id number] [place] [address] Jun, [facility] [place] [facility] [address] [id number] [place] [address] May, [facility] [place] [facility] [address] [id number] [place] [address] May, [facility] [place] [facility] [address] [id number] [place] [address] May, [facility] [place] [facility] [address] [id number] [place] [address] May, [facility] [place] [facility] [address] [id number] [place] [address] Apr, [facility] [place] [facility] [address] [id number] [place] [address] Apr, [facility] [place] [facility] [address] [id number] [place] [address] Apr, [facility] [place] [facility] [address] [id number] [place] [address] Apr, [facility] [place] [facility] [address] [id number] [place] [address] Apr, [facility] [place] [facility] [address] [id number] [place] [address] Apr, [facility] [place] [facility] [address] [id number] [place] [address] Apr, [facility] [place] [facility] [address] [id number] [place] [address] Apr, [facility] [place] [facility] [address] [id number] [place] [address] Apr, [facility] [place] [facility] [address] [id number] [place] [address] Apr, [facility] [place] [facility] [address] [id number] [place] [address] Mar, [facility] [place] [facility] [address] [id number] [place] [address] Mar, [facility] [place] [facility] [address] [id number] [place] [address] Feb, [facility] [place] [facility] [address] [id number] [place] [address] Feb, [facility] [place] [facility] [address] [id number] [place] [address] Feb, [facility] [place] [facility] [address] [id number] [place] [address] Feb, [facility] [place] [facility] [address] [id number] [place] [address] Jan, [facility] [place] [facility] [address] [id number] [place] [address] Jan, IMMUNIZATIONS No Known Immunizations SOCIAL HISTORY Never Assessed REASON FOR VISIT EMR-[facility] [place] CARE VITAL SIGNS MEDICATIONS Medication Instructions Dosage Frequency Start Date End Date Duration Status Latuda 80 mg take 1 tablet (80 mg) by oral route once daily with food (at least 350 calories) Jan, Active Xanax 0.25 mg Jun, Active Lamotrigine 150 mg take 1 tablet (150 mg) by oral route once daily Jan, Active Topiramate 50 mg take 1 tablet by Oral route 4 times per day Jan, Active Hydrocodone-Acetaminophen 5-325 mg take 1 tablet by Oral route every 6 hours as needed for pain PRN Jul, Active Pristiq 100 mg take 1 tablet (100 mg) by oral route once daily Jan, Active OxyContin 10 mg take 1 tablet (10 mg) by oral route every 12 hours Jun, Active phentermine 37.5 mg take 1 capsule by Oral route 1 time per day before breakfast Apr, Active Nuvigil 150 mg take 1 tablet by Oral route 2 times per day in the morning May, Active Omeprazole 20 mg take 1 capsule (20 mg) by oral route once daily before a meal Feb, Active Abilify 2 mg 1 Tablet by Piedad route 1 time per day Jan, Active metformin 500 mg take 1 tablet by Oral route 2 times per day with morning and evening meals Jun, Active Seroquel XR 150 mg take 1 tablet (150 mg) by oral route once daily in the evening without food or with a light meal Jan, Active RESULTS No Results PROCEDURES No Known [...] and UTI 02/2017 Hospitalization History [facility]- UTI 11/23/2017 Hospitalization History [facility] 2018
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
[2019-01-30] MEDS ORDERED: ANTACID SUSP 30 ML UDC (MYLANTA) PO ONE (08:45)
[2019-01-30] MEDS ORDERED: LIDOCAINE 2% VISCOUS 15 ML UDC PO ONE (08:45)
[2019-01-30] MEDS ORDERED: ASPIRIN 81 MG CHEW (CHILDREN'S ASA) PO ONE (08:45)
[2019-01-30] MEDS: NITROGLYCERIN 0.4 MG SL TABS BTL 25'S SL PRN ×2 (08:59→09:16)
--- NOTE | 2019-01-30 09:15 | Diagnostic Imaging Report ---
EXAM: CHEST 1 VIEW, AP/PA ONLY INDICATION: Chest pain. COMPARISON: Chest radiograph 10/08/2018. FINDINGS: Normal heart size and central pulmonary vascularity. Low lung volumes. No dense consolidation. No pleural effusion or pneumothorax. No acute osseous findings. IMPRESSION: Low lung volumes. Chest is otherwise negative. Dictated by: Dictated on workstation # [id number]
[2019-01-30 09:21] LABS: BASOPHILS # (AUTO) 0.1 10^3/uL (0.0-0.1); BASOPHILS % (AUTO) 1 % (0-10); EOSINOPHILS # (AUTO) 0.3 10^3/uL (0.0-0.3); EOSINOPHILS % (AUTO) 2 % (0-10); HEMATOCRIT 37 % (35-52); HEMOGLOBIN 11.5 G/DL (11.5-16.0); LYMPHOCYTES # (AUTO) 3.2 X 10^3 (1.0-4.0); LYMPHOCYTES % (AUTO) 25 % (12-44); MEAN CORPUSCULAR HEMOGLOBIN 25 PG (25-34); MEAN CORPUSCULAR HGB CONC 31 G/DL (32-36); MEAN CORPUSCULAR VOLUME 81 FL (80-99); MEAN PLATELET VOLUME 10.9 FL (7.4-10.4); MONOCYTES # (AUTO) 0.6 X 10^3 (0.0-1.0); MONOCYTES % (AUTO) 5 % (0-12); NEUTROPHILS # (AUTO) 8.6 X 10^3 (1.8-7.8); NEUTROPHILS % (AUTO) 67 % (42-75); PLATELET COUNT 315 10^3/uL (130-400); RED CELL DISTRIBUTION WIDTH 14.9 % (10.0-14.5); WHITE BLOOD COUNT 12.7 10^3/uL (4.3-11.0)
[2019-01-30 09:36] LABS: INR 0.9 (0.8-1.4)
[2019-01-30 09:42] LABS: ALANINE AMINOTRANSFERASE 19 U/L (0-55); ALBUMIN 3.6 GM/DL (3.2-4.5); ALKALINE PHOSPHATASE 88 U/L (40-136); BILIRUBIN,TOTAL 0.1 MG/DL (0.1-1.0); BUN/CREATININE RATIO 8; CARBON DIOXIDE 19 MMOL/L (21-32); CHLORIDE 110 MMOL/L (98-107); CREATININE SERUM 0.97 MG/DL (0.60-1.30); GFR ESTIMATED > 60; GLUCOSE 152 MG/DL (70-105); MAGNESIUM 1.9 MG/DL (1.8-2.4); POTASSIUM 4.4 MMOL/L (3.6-5.0); SODIUM 139 MMOL/L (135-145); TOTAL PROTEIN 6.8 GM/DL (6.4-8.2)
[2019-01-30] MEDS ORDERED: SUCR1TAB36 PO (10:54)
[2019-01-30 11:11] VITALS: BP 135/61
== END 2019-01-30 11:11 | disposition home or self-care (01) ==
LOC: EDUNIT# 08:22 → ER 08:23
DX: K21.9 Gastro-esophageal reflux disease without esophagitis (principal); G47.30 Sleep apnea, unspecified; J44.9 Chronic obstructive pulmonary disease, unspecified; I10 Essential (primary) hypertension; E78.00 Pure hypercholesterolemia, unspecified; G43.909 Migraine, unspecified, not intractable, without status migrainosus; E11.9 Type 2 diabetes mellitus without complications; F41.9 Anxiety disorder, unspecified; Z86.73 Personal history of transient ischemic attack (TIA), and cerebral infarction without residual deficits; Z98.51 Tubal ligation status; Z87.442 Personal history of urinary calculi; Z88.0 Allergy status to penicillin; Z91.041 Radiographic dye allergy status; Z79.82 Long term (current) use of aspirin; Z87.891 Personal history of nicotine dependence
CPT/HCPCS: 36415; 71045; 80053; 83735; 83874; 84484; 85025; 85379; 85610; 85730; 93005; 93041

== ENCOUNTER 2019-03-26 09:26 | Emergency (ER) | payer MEDICARE ==
[~2019-03-26] VITALS: Ht 152.4 cm; Wt 137.4 kg
[~2019-03-26 09:26] MED LIST changes: -OMEP20CA12 PO; +OMEP20CA13 PO; +SUCR1TAB36 PO; -TIZA2TAB3 PO; +TIZA2TAB4 PO
--- NOTE | 2019-03-26 09:41 | NUR ---
PT STATES HOTDOGS AT 0500 THIS AM
[2019-03-26] MEDS ORDERED: NS IV 1000 ML 1,000 ML IV SCH (09:45)
[2019-03-26] MEDS ORDERED: fentaNYL INJECTION 100 MCG/2 ML AMP IVP ONE (09:45)
[2019-03-26 10:14] LABS: BASOPHILS # (AUTO) 0.1 10^3/uL (0.0-0.1); BASOPHILS % (AUTO) 1 % (0-10); EOSINOPHILS # (AUTO) 0.2 10^3/uL (0.0-0.3); EOSINOPHILS % (AUTO) 2 % (0-10); HEMATOCRIT 34 % (35-52); LYMPHOCYTES # (AUTO) 2.5 X 10^3 (1.0-4.0); LYMPHOCYTES % (AUTO) 30 % (12-44); MEAN CORPUSCULAR HEMOGLOBIN 25 PG (25-34); MEAN CORPUSCULAR HGB CONC 32 G/DL (32-36); MEAN CORPUSCULAR VOLUME 78 FL (80-99); MEAN PLATELET VOLUME 11.4 FL (7.4-10.4); MONOCYTES # (AUTO) 0.6 X 10^3 (0.0-1.0); MONOCYTES % (AUTO) 7 % (0-12); NEUTROPHILS % (AUTO) 60 % (42-75); PLATELET COUNT 260 10^3/uL (130-400); RED CELL DISTRIBUTION WIDTH 15.1 % (10.0-14.5); WHITE BLOOD COUNT 8.4 10^3/uL (4.3-11.0)
[2019-03-26 10:28] LABS: BILIRUBIN,URINE NEGATIVE (NEGATIVE); CLARITY,URINE SLIGHTLY CLOUDY; COLOR,URINE YELLOW; GLUCOSE, URINE (UA) 4+ (NEGATIVE); KETONES,URINE NEGATIVE (NEGATIVE); LEUKOCYTE ESTERASE ,URINE 1+ (NEGATIVE); NITRITE,URINE NEGATIVE (NEGATIVE); PH,URINE 8 (5-9); PROTEIN,URINE NEGATIVE (NEGATIVE); UROBILINOGEN,URINE NORMAL (NORMAL)
[2019-03-26 10:35] LABS: ALANINE AMINOTRANSFERASE 20 U/L (0-55); ALBUMIN 3.1 GM/DL (3.2-4.5); ALKALINE PHOSPHATASE 100 U/L (40-136); BILIRUBIN,TOTAL 0.1 MG/DL (0.1-1.0); BUN/CREATININE RATIO 14; CALCIUM 7.9 MG/DL (8.5-10.1); CARBON DIOXIDE 18 MMOL/L (21-32); CHLORIDE 109 MMOL/L (98-107); CREATININE SERUM 0.94 MG/DL (0.60-1.30); GFR ESTIMATED > 60; GLUCOSE 358 MG/DL (70-105); LIPASE 17 U/L (8-78); POTASSIUM 3.9 MMOL/L (3.6-5.0); SODIUM 136 MMOL/L (135-145); TOTAL PROTEIN 5.7 GM/DL (6.4-8.2)
[2019-03-26 10:36] LABS: AMORPHOUS SEDIMENT,UR LARGE AMOR PHOSPHATE /LPF; BACTERIA,URINE FEW /HPF; WBC,URINE RARE /HPF
--- NOTE | 2019-03-26 10:49 | Diagnostic Imaging Report ---
Patient History: Right upper abdominal pain.. Technique: Single frontal view of the chest Comparison: 01/30/2019 FINDINGS: The lung volumes are normal. No focal consolidation is seen. No large pleural effusion or pneumothorax is seen. The cardiomediastinal silhouette is normal in size and contour. No acute osseous abnormality is seen. Surgical hardware is again seen in the proximal right humerus. IMPRESSION: 1. No acute pleuroparenchymal process. Dictated by: Dictated on workstation # [id number]
--- NOTE | 2019-03-26 11:04 | Diagnostic Imaging Report ---
PROCEDURE: CT abdomen and pelvis without contrast. TECHNIQUE: Multiple contiguous axial images were obtained through the abdomen and pelvis without the use of intravenous contrast. Auto Exposure Controls were utilized during the CT exam to meet ALARA standards for radiation dose reduction. INDICATION: Right upper abdominal pain for 3 days. COMPARISON: 01/04/2019 FINDINGS: The heart is unremarkable. The included lung bases are clear. Decreased attenuation is seen throughout the liver. No focal hepatic lesions. Focal fatty sparing seen along the gallbladder fossa. The gallbladder is decompressed. Bilateral nonobstructing renal calculi are seen, the largest measuring 0.4 cm bilaterally. There is thinning of the cortex of the left kidney. No evidence of obstructing calculi or hydronephrosis bilaterally. The bladder is decompressed. The spleen, pancreas, and adrenal glands have a normal noncontrast CT appearance. There is no pathologically enlarged mesenteric or retroperitoneal adenopathy. The bowel loops are nondilated. The appendix is visualized in the right lower quadrant. There is no free fluid or free air. The osseous structures are age-appropriate. There is no free air, loculated collection, or adenopathy in the pelvis. IMPRESSION: 1. Bilateral nonobstructing renal calculi, the largest measuring 0.4 cm bilaterally. No evidence of obstructing calculi or hydronephrosis. 2. Hepatic steatosis. No focal hepatic lesions. Dictated by: Dictated on workstation # [id number]
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
[2019-03-26] MEDS ORDERED: HYDR-3455 PO (11:28)
[2019-03-26 11:52] VITALS: BP 122/89
== END 2019-03-26 11:51 | disposition home or self-care (01) ==
LOC: EDUNIT# 09:26 → ER 09:27
DX: R10.11 Right upper quadrant pain (principal); J44.9 Chronic obstructive pulmonary disease, unspecified; G47.30 Sleep apnea, unspecified; I10 Essential (primary) hypertension; E78.00 Pure hypercholesterolemia, unspecified; G43.909 Migraine, unspecified, not intractable, without status migrainosus; K21.9 Gastro-esophageal reflux disease without esophagitis; E11.9 Type 2 diabetes mellitus without complications; F41.9 Anxiety disorder, unspecified; F17.210 Nicotine dependence, cigarettes, uncomplicated; Z88.0 Allergy status to penicillin; Z91.041 Radiographic dye allergy status; Z79.82 Long term (current) use of aspirin; Z98.51 Tubal ligation status; Z86.73 Personal history of transient ischemic attack (TIA), and cerebral infarction without residual deficits; Z87.442 Personal history of urinary calculi
CPT/HCPCS: 36415; 71045; 74176; 80053; 81000; 83690; 84703; 85025; 96374

== ENCOUNTER → 2019-03-27 | Outpatient (CLI) | payer MEDICARE ==
[~2019-03-27] MED LIST changes: +DICY10CA12 PO; +HYDR-3455 PO
--- NOTE | 2019-03-27 17:47 | Diagnostic Imaging Report ---
PROCEDURE: US Gallbladder. TECHNIQUE: Multiple real-time grayscale images were obtained over the right upper quadrant in various projections. INDICATION: Right upper quadrant abdominal pain. FINDINGS: The liver measures 26 cm in length indicating hepatomegaly. No focal hepatic abnormality is identified. Gallbladder has a normal appearance without evidence of wall thickening or intraluminal filling defect. There is no definite biliary ductal dilatation although portions of the common bile duct and pancreas are largely obscured. No right renal, abdominal aortic, or inferior vena caval abnormality is identified. There is no evidence of ascites. IMPRESSION: Hepatomegaly without acute abnormality seen in the right upper quadrant. Dictated by: Dictated on workstation # [id number]
== END ==
LOC: RAD 12:19
PROVIDERS: ATTEND Emergency Medicine
DX: R16.0 Hepatomegaly, not elsewhere classified (principal); R10.11 Right upper quadrant pain
CPT/HCPCS: 76705

== ENCOUNTER 2019-03-28 19:44 | Emergency (ER) | payer MEDICARE ==
[~2019-03-28] VITALS: Ht 165 cm; Wt 137.0 kg
[~2019-03-28 19:44] MED LIST changes: -DICY10CA12 PO
--- NOTE | 2019-03-28 20:20 | NUR ---
EMPERATRIZ LUNA VERBALIZES HE WANTED ONLY A BLOOD DRAW AND NOT AN IV ON THIS PATIENT.
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
[2019-03-28] MEDS: KETOROLAC 30 MG/ML VIAL IM ONE (20:52)
[2019-03-28 20:54] LABS: BASOPHILS % (AUTO) 0 % (0-10); EOSINOPHILS # (AUTO) 0.2 10^3/uL (0.0-0.3); EOSINOPHILS % (AUTO) 2 % (0-10); HEMATOCRIT 35 % (35-52); HEMOGLOBIN 11.3 G/DL (11.5-16.0); LYMPHOCYTES # (AUTO) 3.3 X 10^3 (1.0-4.0); LYMPHOCYTES % (AUTO) 27 % (12-44); MEAN CORPUSCULAR HEMOGLOBIN 25 PG (25-34); MEAN CORPUSCULAR HGB CONC 33 G/DL (32-36); MEAN CORPUSCULAR VOLUME 78 FL (80-99); MEAN PLATELET VOLUME 10.9 FL (7.4-10.4); MONOCYTES # (AUTO) 0.6 X 10^3 (0.0-1.0); MONOCYTES % (AUTO) 5 % (0-12); NEUTROPHILS # (AUTO) 8.3 X 10^3 (1.8-7.8); NEUTROPHILS % (AUTO) 66 % (42-75); PLATELET COUNT 266 10^3/uL (130-400); RED CELL DISTRIBUTION WIDTH 14.9 % (10.0-14.5); WHITE BLOOD COUNT 12.5 10^3/uL (4.3-11.0)
[2019-03-28 21:15] LABS: ALANINE AMINOTRANSFERASE 19 U/L (0-55); ALBUMIN 3.5 GM/DL (3.2-4.5); ALKALINE PHOSPHATASE 98 U/L (40-136); AMYLASE 28 U/L (25-125); BILIRUBIN,TOTAL 0.2 MG/DL (0.1-1.0); BUN/CREATININE RATIO 15; CALCIUM 8.7 MG/DL (8.5-10.1); CARBON DIOXIDE 19 MMOL/L (21-32); CHLORIDE 106 MMOL/L (98-107); CREATININE SERUM 0.87 MG/DL (0.60-1.30); GFR ESTIMATED > 60; GLUCOSE 169 MG/DL (70-105); LIPASE 8 U/L (8-78); MAGNESIUM 1.8 MG/DL (1.6-2.4); POTASSIUM 3.8 MMOL/L (3.6-5.0); SODIUM 135 MMOL/L (135-145); TOTAL PROTEIN 6.7 GM/DL (6.4-8.2)
[2019-03-28 21:19] LABS: BILIRUBIN,URINE NEGATIVE (NEGATIVE); CLARITY,URINE CLEAR; COLOR,URINE YELLOW; GLUCOSE, URINE (UA) NEGATIVE (NEGATIVE); KETONES,URINE NEGATIVE (NEGATIVE); LEUKOCYTE ESTERASE ,URINE NEGATIVE (NEGATIVE); NITRITE,URINE NEGATIVE (NEGATIVE); PH,URINE 7 (5-9); PROTEIN,URINE NEGATIVE (NEGATIVE); UROBILINOGEN,URINE NORMAL (NORMAL)
[2019-03-28 21:24] LABS: BACTERIA,URINE TRACE /HPF; WBC,URINE RARE /HPF
[2019-03-28 21:29] LABS: AMPHETAMINE SCREEN, URINE NEGATIVE (NEGATIVE); BARBITURATE SCREEN URINE NEGATIVE (NEGATIVE); BENZODIAZEPINES SCREEN URINE NEGATIVE (NEGATIVE); CANNABINOID SCREEN, URINE NEGATIVE (NEGATIVE); COCAINE SCREEN URINE NEGATIVE (NEGATIVE); METHADONE STAT NEGATIVE (NEGATIVE); METHAMPHETAMINE SCREEN URINE S NEGATIVE (NEGATIVE); OPIATE SCREEN URINE POSITIVE (NEGATIVE); OXYCODONE STAT NEGATIVE (NEGATIVE); PROPOXYPHENE STAT NEGATIVE (NEGATIVE); TRICYCLIC ANTIDEPRESSANTS SCRE NEGATIVE (NEGATIVE)
[2019-03-28] MEDS ORDERED: DICY10CA12 PO (21:46)
[2019-03-28 21:51] VITALS: BP 138/67
== END 2019-03-28 21:51 | disposition home or self-care (01) ==
LOC: EDUNIT# 19:44 → ER 19:45
DX: R10.11 Right upper quadrant pain (principal); J44.9 Chronic obstructive pulmonary disease, unspecified; G47.30 Sleep apnea, unspecified; I10 Essential (primary) hypertension; E78.00 Pure hypercholesterolemia, unspecified; G43.909 Migraine, unspecified, not intractable, without status migrainosus; K21.9 Gastro-esophageal reflux disease without esophagitis; E11.9 Type 2 diabetes mellitus without complications; F41.9 Anxiety disorder, unspecified; Z87.442 Personal history of urinary calculi; Z86.73 Personal history of transient ischemic attack (TIA), and cerebral infarction without residual deficits; Z88.0 Allergy status to penicillin; Z91.041 Radiographic dye allergy status; Z79.82 Long term (current) use of aspirin; Z87.891 Personal history of nicotine dependence; Z98.51 Tubal ligation status
CPT/HCPCS: 36415; 80053; 80306; 81000; 82150; 83690; 83735; 85025; 96372; 99284

== ENCOUNTER 2019-03-31 17:30 | Emergency (ER) | payer MEDICARE ==
[~2019-03-31] VITALS: Ht 165.1 cm; Wt 137.0 kg
[~2019-03-31 17:30] MED LIST changes: +DICY10CA12 PO
[2019-03-31] MEDS ORDERED: fentaNYL INJECTION 100 MCG/2 ML AMP IVP ONE (17:45)
[2019-03-31] MEDS ORDERED: KETOROLAC 30 MG/ML VIAL IVP ONE ×2 (17:45)
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
[2019-03-31] MEDS ORDERED: NS 100 ML (IVPB) BAG IV ONE (18:00)
[2019-03-31] MEDS ORDERED: IOHEXOL 350 MG/ML 100 ML (OMNIPAQUE 350) VIAL IV ONE (18:00)
[2019-03-31] MEDS ORDERED: CATHETER FLUSH 10 ML SYR IV PRN (18:00)
[2019-03-31] MEDS ORDERED: HOLD METFORMIN - RECEIVED CONTRAST 20 ML VIAL IV SCH (18:00)
[2019-03-31 18:09] LABS: BILIRUBIN,URINE NEGATIVE (NEGATIVE); CLARITY,URINE CLEAR; COLOR,URINE YELLOW; GLUCOSE, URINE (UA) NEGATIVE (NEGATIVE); KETONES,URINE 1+ (NEGATIVE); LEUKOCYTE ESTERASE ,URINE 2+ (NEGATIVE); NITRITE,URINE NEGATIVE (NEGATIVE); PH,URINE 7 (5-9); PROTEIN,URINE 1+ (NEGATIVE); UROBILINOGEN,URINE NORMAL (NORMAL)
[2019-03-31 18:15] LABS: BASOPHILS # (AUTO) 0.1 10^3/uL (0.0-0.1); BASOPHILS % (AUTO) 0 % (0-10); EOSINOPHILS # (AUTO) 0.3 10^3/uL (0.0-0.3); EOSINOPHILS % (AUTO) 2 % (0-10); HEMATOCRIT 36 % (35-52); HEMOGLOBIN 11.6 G/DL (11.5-16.0); LYMPHOCYTES % (AUTO) 31 % (12-44); MEAN CORPUSCULAR HEMOGLOBIN 25 PG (25-34); MEAN CORPUSCULAR HGB CONC 32 G/DL (32-36); MEAN CORPUSCULAR VOLUME 78 FL (80-99); MEAN PLATELET VOLUME 10.9 FL (7.4-10.4); MONOCYTES # (AUTO) 0.7 X 10^3 (0.0-1.0); MONOCYTES % (AUTO) 6 % (0-12); NEUTROPHILS # (AUTO) 7.8 X 10^3 (1.8-7.8); NEUTROPHILS % (AUTO) 61 % (42-75); PLATELET COUNT 363 10^3/uL (130-400); RED CELL DISTRIBUTION WIDTH 15.5 % (10.0-14.5); WHITE BLOOD COUNT 12.8 10^3/uL (4.3-11.0)
[2019-03-31 18:22] LABS: AMPHETAMINE SCREEN, URINE NEGATIVE (NEGATIVE); BARBITURATE SCREEN URINE NEGATIVE (NEGATIVE); BENZODIAZEPINES SCREEN URINE NEGATIVE (NEGATIVE); CANNABINOID SCREEN, URINE NEGATIVE (NEGATIVE); COCAINE SCREEN URINE NEGATIVE (NEGATIVE); METHADONE STAT NEGATIVE (NEGATIVE); METHAMPHETAMINE SCREEN URINE S NEGATIVE (NEGATIVE); OPIATE SCREEN URINE NEGATIVE (NEGATIVE); OXYCODONE STAT NEGATIVE (NEGATIVE); PROPOXYPHENE STAT NEGATIVE (NEGATIVE); TRICYCLIC ANTIDEPRESSANTS SCRE NEGATIVE (NEGATIVE)
--- NOTE | 2019-03-31 18:26 | Diagnostic Imaging Report ---
PROCEDURE: CT chest without contrast. TECHNIQUE: Multiple contiguous axial images were obtained through the chest without the use of intravenous contrast. Auto Exposure Controls were utilized during the CT exam to meet ALARA standards for radiation dose reduction. INDICATION: Chest pain. COMPARISON: Comparison is made to study of 04/14/2017. FINDINGS: There is continued enlargement of the right lobe of the thyroid gland. Occasional fat-containing lymph nodes are seen in both axillary regions. The lungs are clear and well expanded. There is no significant pleural or pericardial fluid. There is no evidence of pathologic adenopathy in the mediastinum or sung. Upper abdominal sections reveal nonobstructing calculi in the visualized portions of the left kidney. IMPRESSION: No acute abnormality is detected. Dictated by: Dictated on workstation # [id number]
[2019-03-31 18:31] LABS: AMORPHOUS SEDIMENT,UR LARGE AMOR PHOSPHATE /LPF
[2019-03-31 18:33] LABS: BACTERIA,URINE FEW /HPF
[2019-03-31 18:38] LABS: ALANINE AMINOTRANSFERASE 16 U/L (0-55); ALBUMIN 3.7 GM/DL (3.2-4.5); ALKALINE PHOSPHATASE 93 U/L (40-136); BILIRUBIN,TOTAL 0.2 MG/DL (0.1-1.0); BUN/CREATININE RATIO 14; CARBON DIOXIDE 19 MMOL/L (21-32); CHLORIDE 109 MMOL/L (98-107); CREATININE SERUM 0.97 MG/DL (0.60-1.30); GFR ESTIMATED > 60; GLUCOSE 145 MG/DL (70-105); LIPASE 12 U/L (8-78); POTASSIUM 3.8 MMOL/L (3.6-5.0); SODIUM 138 MMOL/L (135-145); TOTAL PROTEIN 6.9 GM/DL (6.4-8.2)
[2019-03-31 18:54] VITALS: BP 138/96
[2019-03-31] MEDS ORDERED: ANTACID SUSP 30 ML UDC (MYLANTA) PO ONE (19:00)
[2019-03-31] MEDS ORDERED: LIDOCAINE 2% VISCOUS 15 ML UDC PO ONE (19:00)
== END 2019-03-31 18:54 | disposition home or self-care (01) ==
LOC: EDUNIT# 17:30 → ER 17:31
DX: R10.11 Right upper quadrant pain (principal); I10 Essential (primary) hypertension; E11.9 Type 2 diabetes mellitus without complications; E78.00 Pure hypercholesterolemia, unspecified; J44.9 Chronic obstructive pulmonary disease, unspecified; F41.9 Anxiety disorder, unspecified; G47.30 Sleep apnea, unspecified; G43.909 Migraine, unspecified, not intractable, without status migrainosus; K21.9 Gastro-esophageal reflux disease without esophagitis; F17.210 Nicotine dependence, cigarettes, uncomplicated; Z86.73 Personal history of transient ischemic attack (TIA), and cerebral infarction without residual deficits; Z87.442 Personal history of urinary calculi; Z99.89 Dependence on other enabling machines and devices; Z88.0 Allergy status to penicillin; Z88.8 Allergy status to other drugs, medicaments and biological substances; Z79.01 Long term (current) use of anticoagulants; Z79.82 Long term (current) use of aspirin; Z98.51 Tubal ligation status; Z90.6 Acquired absence of other parts of urinary tract; Z82.49 Family history of ischemic heart disease and other diseases of the circulatory system
CPT/HCPCS: 36415; 71250; 80053; 80306; 81000; 83690; 85025

== ENCOUNTER 2019-04-06 05:36 | Outpatient (CLI) | payer MEDICARE ==
[~2019-04-06] VITALS: Ht 170.2 cm; Wt 139.8 kg
[~2019-04-06 05:36] MED LIST changes: -CATHETER FLUSH 10 ML SYR IV PRN; -DICY20TA10 PO; -HYOS0.1283 SL; -PANT40TA2 PO; -PROP120C3 PO
[2019-04-06] MEDS ORDERED: PROP120C3 PO (09:17)
== END 2019-04-06 09:28 | disposition home or self-care (01) ==
LOC: PREOP 05:36
PROVIDERS: ATTEND Surgery
DX: Z01.818 Encounter for other preprocedural examination (principal)

== ENCOUNTER → 2019-04-06 | Outpatient (CLI) | payer MEDICARE ==
[~2019-04-06] MED LIST changes: +CATHETER FLUSH 10 ML SYR IV PRN; +DICY20TA10 PO; +HYOS0.1283 SL; +PANT40TA2 PO; +PROP120C3 PO
--- NOTE | 2019-04-06 17:39 | Diagnostic Imaging Report ---
INDICATION: Right upper quadrant pain. TECHNIQUE: Patient was administered 5 mCi of technetium-99m Choletec intravenously and imaging over the abdomen was performed. At 45 minutes, patient ingested one can of Ensure and gallbladder ejection fraction was calculated. FINDINGS: There is homogeneous uptake of activity by the liver. There is prompt excretion of activity into the common duct and gallbladder with normal passage of activity into the small bowel. Gallbladder ejection fraction is normal at 63%. IMPRESSION: Normal HIDA scan and gallbladder ejection fraction. Dictated by: Dictated on workstation # [id number]
== END ==
LOC: CARD 10:32
PROVIDERS: ATTEND Family Medicine
DX: R10.11 Right upper quadrant pain (principal)
CPT/HCPCS: 78227

== ENCOUNTER 2019-04-09 18:11 | Emergency (ER) | payer MEDICARE ==
[~2019-04-09] VITALS: Ht 165 cm; Wt 140.0 kg
[~2019-04-09 18:11] MED LIST changes: +PROP120C3 PO
[2019-04-09] MEDS ORDERED: KETOROLAC 30 MG/ML VIAL IVP STA (18:18)
[2019-04-09] MEDS ORDERED: LACTATED RINGERS 1,000 ML IV ONE (18:18)
[2019-04-09 18:28] LABS: BASOPHILS # (AUTO) 0.1 10^3/uL (0.0-0.1); BASOPHILS % (AUTO) 0 % (0-10); EOSINOPHILS # (AUTO) 0.2 10^3/uL (0.0-0.3); EOSINOPHILS % (AUTO) 1 % (0-10); HEMATOCRIT 38 % (35-52); HEMOGLOBIN 12.3 G/DL (11.5-16.0); LYMPHOCYTES # (AUTO) 3.4 X 10^3 (1.0-4.0); LYMPHOCYTES % (AUTO) 27 % (12-44); MEAN CORPUSCULAR HEMOGLOBIN 25 PG (25-34); MEAN CORPUSCULAR HGB CONC 33 G/DL (32-36); MEAN CORPUSCULAR VOLUME 77 FL (80-99); MONOCYTES # (AUTO) 0.8 X 10^3 (0.0-1.0); MONOCYTES % (AUTO) 6 % (0-12); NEUTROPHILS # (AUTO) 8.4 X 10^3 (1.8-7.8); NEUTROPHILS % (AUTO) 65 % (42-75); PLATELET COUNT 405 10^3/uL (130-400); RED CELL DISTRIBUTION WIDTH 14.8 % (10.0-14.5); WHITE BLOOD COUNT 12.8 10^3/uL (4.3-11.0)
[2019-04-09] MEDS ORDERED: ONDANSETRON 4 MG/2 ML (SDV) Z0FRAN IVP ONE (18:30)
[2019-04-09 18:38] LABS: INR 0.7 (0.8-1.4); PROTHROMBIN TIME PATIENT 10.3 SEC (12.2-14.7)
[2019-04-09] MEDS ORDERED: PANTOPRAZOLE 40 MG (PROTONIX) VIAL IV ONE (18:45)
[2019-04-09 18:50] LABS: ALANINE AMINOTRANSFERASE 16 U/L (0-55); ALBUMIN 3.9 GM/DL (3.2-4.5); ALKALINE PHOSPHATASE 113 U/L (40-136); AMYLASE 26 U/L (25-125); BILIRUBIN,TOTAL 0.3 MG/DL (0.1-1.0); BUN/CREATININE RATIO 11; CALCIUM 9.2 MG/DL (8.5-10.1); CARBON DIOXIDE 16 MMOL/L (21-32); CHLORIDE 110 MMOL/L (98-107); CREATININE SERUM 0.98 MG/DL (0.60-1.30); GFR ESTIMATED > 60; GLUCOSE 133 MG/DL (70-105); LIPASE 8 U/L (8-78); POTASSIUM 3.8 MMOL/L (3.6-5.0); SODIUM 137 MMOL/L (135-145); TOTAL PROTEIN 7.8 GM/DL (6.4-8.2)
[2019-04-09] MEDS ORDERED: DICYCLOMINE 10 MG/ML (BENTYL) 2 ML AMP IM ONE (19:15)
[2019-04-09] MEDS ORDERED: HYOSCYAMINE 0.125 MG (LEVSIN) TAB PO ONE (19:15)
[2019-04-09 19:45] LABS: BILIRUBIN,URINE NEGATIVE (NEGATIVE); CLARITY,URINE CLEAR; COLOR,URINE YELLOW; GLUCOSE, URINE (UA) NEGATIVE (NEGATIVE); KETONES,URINE NEGATIVE (NEGATIVE); LEUKOCYTE ESTERASE ,URINE 2+ (NEGATIVE); NITRITE,URINE NEGATIVE (NEGATIVE); PH,URINE 6 (5-9); PROTEIN,URINE NEGATIVE (NEGATIVE); UROBILINOGEN,URINE NORMAL (NORMAL)
[2019-04-09 19:58] LABS: BACTERIA,URINE FEW /HPF
[2019-04-09 20:10] LABS: AMPHETAMINE SCREEN, URINE NEGATIVE (NEGATIVE); BARBITURATE SCREEN URINE NEGATIVE (NEGATIVE); BENZODIAZEPINES SCREEN URINE NEGATIVE (NEGATIVE); CANNABINOID SCREEN, URINE NEGATIVE (NEGATIVE); COCAINE SCREEN URINE NEGATIVE (NEGATIVE); METHADONE STAT NEGATIVE (NEGATIVE); METHAMPHETAMINE SCREEN URINE S NEGATIVE (NEGATIVE); OPIATE SCREEN URINE NEGATIVE (NEGATIVE); OXYCODONE STAT NEGATIVE (NEGATIVE); PROPOXYPHENE STAT NEGATIVE (NEGATIVE); TRICYCLIC ANTIDEPRESSANTS SCRE NEGATIVE (NEGATIVE)
[2019-04-09] MEDS ORDERED: NITROFURANTOIN 100 MG (MACROBID) CAPSULE PO ONE (20:15)
[2019-04-09] MEDS ORDERED: RX-ONDANSETRON 4 MG ODT (ZOFRAN) PPK #4 PO STA (20:18)
[2019-04-09] MEDS ORDERED: RX-HYOSCYAMINE 0.125 MG SL (LEVSIN) PPK#6 SL STA (20:18)
[2019-04-09] MEDS ORDERED: RX-DICYCLOMINE 10 MG (BENTYL) CAP PPK#4 PO STA (20:18)
[2019-04-09] MEDS ORDERED: HYOS0.1283 SL (20:22)
[2019-04-09] MEDS ORDERED: PANT40TA2 PO (20:22)
[2019-04-09] MEDS ORDERED: NITR-65 PO (20:22)
[2019-04-09] MEDS ORDERED: DICY20TA10 PO (20:22)
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
[2019-04-09 20:28] VITALS: BP 103/87
== END 2019-04-09 20:28 | disposition home or self-care (01) ==
LOC: EDUNIT# 18:11 → ER 18:12
DX: R10.11 Right upper quadrant pain (principal); N39.0 Urinary tract infection, site not specified; I10 Essential (primary) hypertension; E11.9 Type 2 diabetes mellitus without complications; J44.9 Chronic obstructive pulmonary disease, unspecified; F41.9 Anxiety disorder, unspecified; E78.00 Pure hypercholesterolemia, unspecified; G47.30 Sleep apnea, unspecified; G43.909 Migraine, unspecified, not intractable, without status migrainosus; K21.9 Gastro-esophageal reflux disease without esophagitis; F17.210 Nicotine dependence, cigarettes, uncomplicated; Z86.73 Personal history of transient ischemic attack (TIA), and cerebral infarction without residual deficits; Z99.89 Dependence on other enabling machines and devices; Z87.442 Personal history of urinary calculi; Z98.51 Tubal ligation status; Z88.0 Allergy status to penicillin; Z88.8 Allergy status to other drugs, medicaments and biological substances; Z82.49 Family history of ischemic heart disease and other diseases of the circulatory system
CPT/HCPCS: 36415; 80053; 80306; 80320; 81000; 82150; 82962; 83690; 83735; 84703; 85025; 85610; 85730; 87088; 93005; 93041

== ENCOUNTER → 2019-04-10 | Day surgery (SDC) | payer MEDICARE ==
[~2019-04-10] VITALS: Ht 170.2 cm; Wt 140.0 kg
[~2019-04-10] MED LIST changes: +DICY20TA10 PO; +HURRICAINE EXT TUBE (BENZOCAINE) ONE; +HURRICAINE EXT TUBE (BENZOCAINE) XX PRN; +HYOS0.1283 SL; +LACTATED RINGERS 1,000 ML IV ONE; +LACTATED RINGERS 1,000 ML IV STA; +MIDAZOLAM 2 MG/2 ML (VERSED) VIAL ONE; +PANT40TA2 PO; +PROPOFOL INJECTION 0 ML IV ONE; +proPOfol 200 MG/20 ML (DIPRIVAN) VIAL IV ONE
[2019-04-10 11:21] VITALS: BP 140/73
--- NOTE | 2019-04-10 12:21 | Progress Note-Pre Operative ---
Pre-Operative Progress Note H&P Reviewed The H&P was reviewed, patient examined and no changes noted. Time Seen by Provider: 12:19 Date H&P Reviewed: Apr 10, 2019 Time H&P Reviewed: 12:18 Pre-Operative Diagnosis: RUQ pain MELANI PLASCENCIA DO Apr 10, 2019 12:21
[2019-04-10 13:10] VITALS: BP 112/53
[2019-04-10 13:15] VITALS: BP 105/56
[2019-04-10 13:20] VITALS: BP 103/56
[2019-04-10 13:30] VITALS: BP 105/56
[2019-04-10 13:52] VITALS: BP 105/56
--- NOTE | 2019-04-10 14:44 | Anesthesia-General Post-Op ---
MAC Patient Condition Mental Status/LOC: Same as Preop Cardiovascular: Satisfactory Nausea/Vomiting: Absent Respiratory: Satisfactory Pain: Controlled Complications: Absent Post Op Complications Complications None Follow Up Care/Instructions Patient Instructions None needed. Anesthesiology Discharge Order Discharge Order Patient is doing well, no complaints, stable vital signs, no apparent adverse anesthesia problems. No complications reported per nursing. HEATHER RODRIGUEZ CRNA Apr 10, 2019 14:44
--- NOTE | 2019-04-11 02:14 | OPERATIVE REPORT ---
DATE OF SERVICE: 04/10/2019 PREOPERATIVE DIAGNOSIS: Right upper quadrant abdominal pain, chronic gastritis. POSTOPERATIVE DIAGNOSES: 1. Gastritis, questionable gastric ulcer. 2. Hiatal hernia. PROCEDURE: EGD with biopsy. SURGEON: Phil Mayo DO COSMETIC MANAGER: None. ANESTHESIA: IV sedation by the BULL LADLE TENDER. SPECIMEN: Biopsy of the antrum x2, biopsy of body of stomach, and biopsy of the GE junction. BLOOD LOSS: Scant. FLUIDS: Per anesthesia. POSTOPERATIVE CONDITION: Stable. INDICATION FOR PROCEDURE: The patient is a 48-year-old female who has been having right upper quadrant pain, actually was in the emergency room last night, pain is not getting any better, we cannot find any source of this and has had ultrasound which showed no stones in the gallbladder or sludge. A HIDA scan is set up and she is needed an EGD for workup. FINDINGS: The patient had some gastritis what looked like maybe even a gastric ulcer, small beginnings of one and she had a small hiatal hernia. PROCEDURE NOTE: After informed consent was obtained, the patient was brought to the endoscopy suite, placed in the bed left lateral decubitus position. She was administered IV sedation by the BULL LADLE TENDER who then monitored her vitals the entire time, heart rate, blood pressure and pulse ox and the scope was inserted down the mouth through the esophagus and into the stomach. In the stomach, noted some gastritis at the antrum and what looked like beginnings of a small possibly gastric ulcer, pushed into the duodenum. Duodenum looked okay. Pulled the scope back and did a biopsy of the antrum, then tried to get a biopsy of what looked like beginnings of this ulcer. Retroflexed the scope, saw small hiatal hernia and then did a biopsy of the body of stomach, pulled the scope back up into the GE junction, did a biopsy here. Suctioned the air out of the stomach and then pulled the scope up the esophagus and out the mouth. The patient tolerated the procedure, recovered in endoscopy suite. Job ID: [id number] DocumentID: [id number] Dictated Date: 04/10/2019 16:39:03 White Mixing Operator Date: 04/11/2019 01:02:36 Dictated By: PHIL MAYO DO
== END | disposition home or self-care (01) ==
LOC: ENDO 10:39
PROVIDERS: ATTEND Surgery
DX: K29.50 Unspecified chronic gastritis without bleeding (principal); K44.9 Diaphragmatic hernia without obstruction or gangrene; K31.89 Other diseases of stomach and duodenum; E11.9 Type 2 diabetes mellitus without complications; F31.9 Bipolar disorder, unspecified; G43.909 Migraine, unspecified, not intractable, without status migrainosus; G47.33 Obstructive sleep apnea (adult) (pediatric); G47.50 Parasomnia, unspecified; I48.0 Paroxysmal atrial fibrillation; J98.4 Other disorders of lung; Z87.820 Personal history of traumatic brain injury; F50.9 Eating disorder, unspecified; Z68.42 Body mass index [BMI] 45.0-49.9, adult; I10 Essential (primary) hypertension; I25.10 Atherosclerotic heart disease of native coronary artery without angina pectoris; E78.5 Hyperlipidemia, unspecified; J44.9 Chronic obstructive pulmonary disease, unspecified; F17.210 Nicotine dependence, cigarettes, uncomplicated; F41.9 Anxiety disorder, unspecified; M19.91 Primary osteoarthritis, unspecified site; K21.9 Gastro-esophageal reflux disease without esophagitis; E66.01 Morbid (severe) obesity due to excess calories; Z87.442 Personal history of urinary calculi; M54.5 Low back pain; G89.29 Other chronic pain; Z88.0 Allergy status to penicillin; Z79.01 Long term (current) use of anticoagulants; Z79.899 Other long term (current) drug therapy; Z79.84 Long term (current) use of oral hypoglycemic drugs; Z95.810 Presence of automatic (implantable) cardiac defibrillator
CPT/HCPCS: 82962; 84703; 88305; 88342

== ENCOUNTER 2019-04-24 11:07 | Emergency (ER) | payer MEDICARE ==
[~2019-04-24] VITALS: Ht 165.4 cm; Wt 140.0 kg
[~2019-04-24 11:07] MED LIST changes: -HURRICAINE EXT TUBE (BENZOCAINE) ONE; -HURRICAINE EXT TUBE (BENZOCAINE) XX PRN; -LACTATED RINGERS 1,000 ML IV ONE; -LACTATED RINGERS 1,000 ML IV STA; -MIDAZOLAM 2 MG/2 ML (VERSED) VIAL ONE; -PROPOFOL INJECTION 0 ML IV ONE; -proPOfol 200 MG/20 ML (DIPRIVAN) VIAL IV ONE
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
[2019-04-24] MEDS ORDERED: KETOROLAC 30 MG/ML VIAL IVP ONE (11:30)
[2019-04-24] MEDS ORDERED: ANTACID SUSP 30 ML UDC (MYLANTA) PO ONE (11:30)
[2019-04-24] MEDS ORDERED: LIDOCAINE 2% VISCOUS 15 ML UDC PO ONE (11:30)
[2019-04-24 11:37] LABS: BASOPHILS # (AUTO) 0.1 10^3/uL (0.0-0.1); BASOPHILS % (AUTO) 1 % (0-10); EOSINOPHILS # (AUTO) 0.3 10^3/uL (0.0-0.3); EOSINOPHILS % (AUTO) 2 % (0-10); HEMATOCRIT 38 % (35-52); HEMOGLOBIN 12.4 G/DL (11.5-16.0); LYMPHOCYTES # (AUTO) 3.2 X 10^3 (1.0-4.0); LYMPHOCYTES % (AUTO) 27 % (12-44); MEAN CORPUSCULAR HEMOGLOBIN 25 PG (25-34); MEAN CORPUSCULAR HGB CONC 33 G/DL (32-36); MEAN CORPUSCULAR VOLUME 77 FL (80-99); MEAN PLATELET VOLUME 11.5 FL (7.4-10.4); MONOCYTES # (AUTO) 0.5 X 10^3 (0.0-1.0); MONOCYTES % (AUTO) 4 % (0-12); NEUTROPHILS % (AUTO) 66 % (42-75); PLATELET COUNT 314 10^3/uL (130-400); WHITE BLOOD COUNT 12.1 10^3/uL (4.3-11.0)
[2019-04-24 11:53] LABS: ALANINE AMINOTRANSFERASE 20 U/L (0-55); ALBUMIN 3.7 GM/DL (3.2-4.5); ALKALINE PHOSPHATASE 113 U/L (40-136); BILIRUBIN,TOTAL 0.2 MG/DL (0.1-1.0); BUN/CREATININE RATIO 10; CALCIUM 8.8 MG/DL (8.5-10.1); CARBON DIOXIDE 21 MMOL/L (21-32); CHLORIDE 110 MMOL/L (98-107); CREATININE SERUM 0.89 MG/DL (0.60-1.30); GFR ESTIMATED > 60; GLUCOSE 166 MG/DL (70-105); LIPASE 13 U/L (8-78); POTASSIUM 4.2 MMOL/L (3.6-5.0); SODIUM 139 MMOL/L (135-145)
[2019-04-24 12:02] VITALS: BP 117/55
== END 2019-04-24 12:07 | disposition home or self-care (01) ==
LOC: EDUNIT# 11:07 → ER 11:08
DX: K29.70 Gastritis, unspecified, without bleeding (principal); I10 Essential (primary) hypertension; E11.9 Type 2 diabetes mellitus without complications; E78.00 Pure hypercholesterolemia, unspecified; J44.9 Chronic obstructive pulmonary disease, unspecified; G47.30 Sleep apnea, unspecified; F41.9 Anxiety disorder, unspecified; I48.0 Paroxysmal atrial fibrillation; G43.909 Migraine, unspecified, not intractable, without status migrainosus; K21.9 Gastro-esophageal reflux disease without esophagitis; Z86.73 Personal history of transient ischemic attack (TIA), and cerebral infarction without residual deficits; Z99.89 Dependence on other enabling machines and devices; Z77.22 Contact with and (suspected) exposure to environmental tobacco smoke (acute) (chronic); Z98.51 Tubal ligation status; Z87.442 Personal history of urinary calculi; Z88.0 Allergy status to penicillin; Z88.8 Allergy status to other drugs, medicaments and biological substances; Z82.49 Family history of ischemic heart disease and other diseases of the circulatory system
CPT/HCPCS: 36415; 80053; 83690; 85025

== ENCOUNTER 2019-05-07 07:55 | Emergency (ER) | payer MEDICARE, MEDICAID ==
[~2019-05-07] VITALS: Ht 165 cm; Wt 140.0 kg
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
[2019-05-07 08:13] LABS: BASOPHILS # (AUTO) 0.1 10^3/uL (0.0-0.1); BASOPHILS % (AUTO) 1 % (0-10); EOSINOPHILS # (AUTO) 0.3 10^3/uL (0.0-0.3); EOSINOPHILS % (AUTO) 3 % (0-10); HEMATOCRIT 38 % (35-52); HEMOGLOBIN 12.1 G/DL (11.5-16.0); LYMPHOCYTES # (AUTO) 2.9 X 10^3 (1.0-4.0); LYMPHOCYTES % (AUTO) 25 % (12-44); MEAN CORPUSCULAR HEMOGLOBIN 24 PG (25-34); MEAN CORPUSCULAR HGB CONC 32 G/DL (32-36); MEAN CORPUSCULAR VOLUME 76 FL (80-99); MONOCYTES # (AUTO) 0.6 X 10^3 (0.0-1.0); MONOCYTES % (AUTO) 5 % (0-12); NEUTROPHILS # (AUTO) 7.9 X 10^3 (1.8-7.8); NEUTROPHILS % (AUTO) 67 % (42-75); PLATELET COUNT 403 10^3/uL (130-400); RED CELL DISTRIBUTION WIDTH 15.5 % (10.0-14.5); WHITE BLOOD COUNT 11.8 10^3/uL (4.3-11.0)
[2019-05-07] MEDS ORDERED: fentaNYL INJECTION 100 MCG/2 ML AMP IVP ONE (08:15)
[2019-05-07] MEDS ORDERED: NS IV 1000 ML 1,000 ML IV SCH (08:15)
[2019-05-07] MEDS ORDERED: ONDANSETRON 4 MG/2 ML (SDV) Z0FRAN IVP ONE (08:15)
[2019-05-07 08:32] LABS: ALANINE AMINOTRANSFERASE 18 U/L (0-55); ALBUMIN 3.7 GM/DL (3.2-4.5); ALKALINE PHOSPHATASE 104 U/L (40-136); BILIRUBIN,TOTAL 0.3 MG/DL (0.1-1.0); BUN/CREATININE RATIO 18; CARBON DIOXIDE 18 MMOL/L (21-32); CHLORIDE 108 MMOL/L (98-107); CREATININE SERUM 0.95 MG/DL (0.60-1.30); GFR ESTIMATED > 60; GLUCOSE 228 MG/DL (70-105); LIPASE 11 U/L (8-78); POTASSIUM 4.1 MMOL/L (3.6-5.0); SODIUM 137 MMOL/L (135-145); TOTAL PROTEIN 7.3 GM/DL (6.4-8.2)
--- NOTE | 2019-05-07 09:14 | Diagnostic Imaging Report ---
EXAMINATION: CT Abdomen Pelvis without contrast. TECHNIQUE: Multiple contiguous axial images were obtained through the abdomen and pelvis without the use of intravenous contrast. All CT scans use one or more of the following dose optimizing techniques: automated exposure control, MA and/or KvP adjustment based on a patient size and exam type, or iterative reconstruction. HISTORY: Right upper quadrant pain COMPARISON: 03/26/2019 FINDINGS: Limited views of the lower thorax are unremarkable. Liver is mildly steatotic. No suspicious liver lesions are seen. There is no biliary ductal dilation. Gallbladder is normal. Pancreas is normal. Spleen is normal. Adrenal glands are normal. There are several bilateral nonobstructing 2 to 3 mm stones which appear similar to previous exam. No suspicious renal lesions. There is no hydronephrosis. Urinary bladder is normal. There are no dilated loops of large or small bowel. No obstruction or inflammation. No free fluid or air. No abdominal or pelvic lymphadenopathy. Aorta is normal in caliber without aneurysm. There are no suspicious osseus lesions. IMPRESSION: 1. No acute abnormality in the abdomen or pelvis. 2. Mild steatosis of the liver. Dictated by: Dictated on workstation # [id number]
[2019-05-07] MEDS ORDERED: HYDR-3455 PO (09:45)
[2019-05-07 09:57] VITALS: BP 135/75
[2019-05-08] MEDS ORDERED: SUCR1TAB PO (10:11)
[2019-05-08] MEDS ORDERED: APIX5TAB PO (10:11)
[2019-05-10] MEDS ORDERED: HYDR-3820 PO (09:34)
== END 2019-05-07 09:57 | disposition home or self-care (01) ==
LOC: EDUNIT# 07:55 → ER 07:56
DX: R10.11 Right upper quadrant pain (principal); I10 Essential (primary) hypertension; E11.9 Type 2 diabetes mellitus without complications; J44.9 Chronic obstructive pulmonary disease, unspecified; F41.9 Anxiety disorder, unspecified; E78.00 Pure hypercholesterolemia, unspecified; I48.0 Paroxysmal atrial fibrillation; G47.30 Sleep apnea, unspecified; G43.909 Migraine, unspecified, not intractable, without status migrainosus; K21.9 Gastro-esophageal reflux disease without esophagitis; Z86.73 Personal history of transient ischemic attack (TIA), and cerebral infarction without residual deficits; Z87.442 Personal history of urinary calculi; Z95.9 Presence of cardiac and vascular implant and graft, unspecified; Z88.0 Allergy status to penicillin; Z88.8 Allergy status to other drugs, medicaments and biological substances; Z87.891 Personal history of nicotine dependence; Z77.22 Contact with and (suspected) exposure to environmental tobacco smoke (acute) (chronic); Z98.51 Tubal ligation status; Z99.89 Dependence on other enabling machines and devices; Z82.49 Family history of ischemic heart disease and other diseases of the circulatory system
CPT/HCPCS: 36415; 74176; 80053; 83690; 85025

== ENCOUNTER 2019-05-08 06:23 | Outpatient (CLI) | payer MEDICARE, MEDICAID ==
[~2019-05-08] VITALS: Ht 166 cm; Wt 92.3 kg
[~2019-05-08 06:23] MED LIST changes: +OMEP-280 PO; -OMEP20CA13 PO; +OXYB5TAB13 PO; -OXYB5TAB9 PO; -TRAM50TA2 PO; +TRM50T PO
[2019-05-08] MEDS ORDERED: APIX5TAB PO (10:11)
[2019-05-08] MEDS ORDERED: SUCR1TAB PO (10:11)
[2019-05-10] MEDS ORDERED: HYDR-3820 PO (09:34)
[2019-06-28] MEDS ORDERED: METF-399 PO (12:56)
[2019-06-28] MEDS ORDERED: FLUO10CA29 PO (12:56)
[2019-06-28] MEDS ORDERED: FLUT1AER IH (12:56)
[2019-06-28] MEDS ORDERED: TIZA2TAB4 PO (12:56)
[2019-06-28] MEDS ORDERED: OMEP40CA27 PO (12:56)
[2019-07-05] MEDS ORDERED: IBUP-844 PO (10:34)
[2019-07-05] MEDS ORDERED: ESTR1PAT73 TD (10:34)
[2019-07-05] MEDS ORDERED: OXC5T PO (10:36)
[2019-07-05] MEDS ORDERED: ACET-78 PO (10:36)
== END 2019-05-08 10:23 | disposition home or self-care (01) ==
LOC: PREOP 06:23
PROVIDERS: ATTEND Surgery
DX: Z01.818 Encounter for other preprocedural examination (principal)

== ENCOUNTER 2019-06-04 16:58 | Emergency (ER) | payer MEDICARE, MEDICAID ==
[~2019-06-04] VITALS: Ht 154 cm; Wt 134.8 kg
[~2019-06-04 16:58] MED LIST changes: +HYDR-3820 PO; -OMEP-280 PO; +OMEP20CA13 PO; -OXYB5TAB13 PO; +OXYB5TAB9 PO; +SUCR1TAB PO; +TRAM50TA2 PO; -TRM50T PO
[2019-06-04 17:33] LABS: BASOPHILS # (AUTO) 0.1 10^3/uL (0.0-0.1); BASOPHILS % (AUTO) 1 % (0-10); EOSINOPHILS # (AUTO) 0.5 10^3/uL (0.0-0.3); EOSINOPHILS % (AUTO) 3 % (0-10); HEMATOCRIT 40 % (35-52); HEMOGLOBIN 12.7 G/DL (11.5-16.0); LYMPHOCYTES # (AUTO) 4.1 X 10^3 (1.0-4.0); LYMPHOCYTES % (AUTO) 30 % (12-44); MEAN CORPUSCULAR HEMOGLOBIN 24 PG (25-34); MEAN CORPUSCULAR HGB CONC 32 G/DL (32-36); MEAN CORPUSCULAR VOLUME 74 FL (80-99); MEAN PLATELET VOLUME 10.6 FL (7.4-10.4); MONOCYTES # (AUTO) 0.8 X 10^3 (0.0-1.0); MONOCYTES % (AUTO) 6 % (0-12); NEUTROPHILS # (AUTO) 8.2 X 10^3 (1.8-7.8); NEUTROPHILS % (AUTO) 60 % (42-75); PLATELET COUNT 434 10^3/uL (130-400); RED CELL DISTRIBUTION WIDTH 16.1 % (10.0-14.5); WHITE BLOOD COUNT 13.7 10^3/uL (4.3-11.0)
[2019-06-04 17:34] LABS: BILIRUBIN,URINE NEGATIVE (NEGATIVE); CLARITY,URINE CLEAR; COLOR,URINE YELLOW; GLUCOSE, URINE (UA) NEGATIVE (NEGATIVE); KETONES,URINE NEGATIVE (NEGATIVE); LEUKOCYTE ESTERASE ,URINE TRACE (NEGATIVE); NITRITE,URINE NEGATIVE (NEGATIVE); PROTEIN,URINE NEGATIVE (NEGATIVE)
[2019-06-04 17:42] LABS: BACTERIA,URINE NEGATIVE /HPF; RBC,URINE RARE /HPF; WBC,URINE RARE /HPF
[2019-06-04 17:52] LABS: ALBUMIN 4.2 GM/DL (3.2-4.5); BILIRUBIN,TOTAL 0.2 MG/DL (0.1-1.0); CALCIUM 9.5 MG/DL (8.5-10.1); CREATININE SERUM 1.12 MG/DL (0.60-1.30); POTASSIUM 4.1 MMOL/L (3.6-5.0)
[2019-06-04] MEDS ORDERED: CLIN150C17 PO (18:09)
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
[2019-06-04] MEDS ORDERED: KETOROLAC 30 MG/ML VIAL IVP ONE (18:15)
[2019-06-04] MEDS ORDERED: CLINDAMYCIN 150 MG (CLEOCIN) CAP PO ONE (18:15)
[2019-06-04 18:33] VITALS: BP 120/88
== END 2019-06-04 18:35 | disposition home or self-care (01) ==
LOC: EDUNIT# 16:58 → ER 16:59
DX: K02.9 Dental caries, unspecified (principal); K04.7 Periapical abscess without sinus; J44.9 Chronic obstructive pulmonary disease, unspecified; I10 Essential (primary) hypertension; E78.00 Pure hypercholesterolemia, unspecified; I48.91 Unspecified atrial fibrillation; G47.30 Sleep apnea, unspecified; G43.909 Migraine, unspecified, not intractable, without status migrainosus; K21.9 Gastro-esophageal reflux disease without esophagitis; E11.9 Type 2 diabetes mellitus without complications; F17.210 Nicotine dependence, cigarettes, uncomplicated; F31.9 Bipolar disorder, unspecified; F32.9 Major depressive disorder, single episode, unspecified; Z99.89 Dependence on other enabling machines and devices; Z87.442 Personal history of urinary calculi; Z95.9 Presence of cardiac and vascular implant and graft, unspecified; Z98.51 Tubal ligation status; Z86.73 Personal history of transient ischemic attack (TIA), and cerebral infarction without residual deficits; Z87.820 Personal history of traumatic brain injury; Z88.0 Allergy status to penicillin; Z88.8 Allergy status to other drugs, medicaments and biological substances; Z79.01 Long term (current) use of anticoagulants; Z82.49 Family history of ischemic heart disease and other diseases of the circulatory system
CPT/HCPCS: 36415; 80053; 81000; 85025

== ENCOUNTER → 2019-06-28 | Outpatient (CLI) | payer MEDICARE, MEDICAID ==
[~2019-06-28] VITALS: Ht 162 cm; Wt 137.1 kg
[~2019-06-28] MED LIST changes: +CLIN150C17 PO; +FLUO10CA29 PO; +FLUT1AER IH; +METF-399 PO; +OMEP40CA36 PO
[2019-06-28 13:00] VITALS: BP 114/65
[2019-06-28 13:51] LABS: BILIRUBIN,URINE NEGATIVE (NEGATIVE); CLARITY,URINE CLEAR; COLOR,URINE YELLOW; GLUCOSE, URINE (UA) NEGATIVE (NEGATIVE); KETONES,URINE NEGATIVE (NEGATIVE); LEUKOCYTE ESTERASE ,URINE 1+ (NEGATIVE); NITRITE,URINE NEGATIVE (NEGATIVE); PROTEIN,URINE TRACE (NEGATIVE)
[2019-06-28 14:16] LABS: BACTERIA,URINE FEW /HPF; RBC,URINE >100 /HPF
== END ==
LOC: PREOP 12:31
PROVIDERS: ATTEND Obstetrics & Gynecology
DX: Z01.818 Encounter for other preprocedural examination (principal); D25.9 Leiomyoma of uterus, unspecified; N92.0 Excessive and frequent menstruation with regular cycle; N83.209 Unspecified ovarian cyst, unspecified side
CPT/HCPCS: 81000; 87081; 87088

== ENCOUNTER 2019-08-02 15:56 | Emergency (ER) | payer MEDICARE, MEDICAID ==
[~2019-08-02] VITALS: Ht 165 cm; Wt 136.7 kg
[~2019-08-02 15:56] MED LIST changes: +ACET-78 PO; +ESTR1PAT73 TD; +IBUP-844 PO; +OMEP-280 PO; -OMEP20CA13 PO; +OMEP40CA27 PO; -OMEP40CA36 PO; +OXC5T PO; +OXYB5TAB13 PO; -OXYB5TAB9 PO; -TRAM50TA2 PO; +TRM50T PO
--- NOTE | 2019-08-02 16:24 | ED Headache ---
General Chief Complaint: Head/Cervical Problems Stated Complaint: MIGRAINE Nursing Triage Note: HYSTERECTOMY ON THE . HAS HAD AN MIGRAINE SINCE. HAS BEEN TAKING IBUPROFEN 600MG WHICH IS NOT HELPING. WAS SEEN AT HER DR'S YESTERDAY AND GIVEN TORADOL AND PHENERERGAN BUT THE HEADACHE IS WORSE TODAY. Nursing Sepsis Screen: No Definite Risk Source: patient Exam Limitations: no limitations History of Present Illness Date Seen by Provider: Aug 02, 2019 Time Seen by Provider: 16:23 Initial Comments To ER with reports of a headache for the past few days. She had a hysterectomy on July 04. She was seen at [facility] yesterday and given Toradol and Phenergan but the headache is worse today. That did help temporarily. Timing/Duration: 1 week Severity/Quality: moderate, constant Allergies and Home Medications Allergies Coded Allergies: Penicillins (Unverified Allergy, Mild, Hives, 06/28/19) povidone-iodine (Unverified Allergy, Mild, Hives, 06/28/19) Home Medications Acetaminophen 500 Mg Tablet, 1,000 MG PO Q8HR Prescribed by: MADISON GUNTER on 07/05/19 1036 Albuterol Sulfate 1 Puff Puff, 2 PUFF INH QID PRN for SHORTNESS OF BREATH, (Reported) Apixaban 5 Mg Tablet, 5 MG PO BID, (Reported) Atorvastatin Calcium 10 Mg Tablet, 10 MG PO HS, (Reported) Estradiol 1 Each Patch.tdwk, 1 EACH TD Weekly Prescribed by: MADISON GUNTER on 07/05/19 1034 Fluoxetine HCl 10 Mg Capsule, 10 MG PO DAILY, (Reported) Fluticasone/Vilanterol 1 Each Blst.w.dev, 1 EACH IH DAILY, (Reported) Gabapentin 600 Mg Tablet, 1,200 MG PO TID, (Reported) TAKES 2 (600MG) TABLETS Ibuprofen 600 Mg Tablet, 600 MG PO Q6H Prescribed by: MADISON GUNTER on 07/05/19 1034 Metformin HCl 1,000 Mg Tablet, 1,000 MG PO BID, (Reported) Omeprazole 40 Mg Capsule.dr, 40 MG PO DAILY, (Reported) Oxycodone Hcl 5 Mg Tab, 5 MG PO Q4H PRN for PAIN-SEVERE Prescribed by: MADISON GUNTER on 07/05/19 1036 Propranolol HCl 120 Mg Cap.sa.24h, 120 MG PO DAILY, (Reported) Tizanidine HCl 2 Mg Tablet, 6 MG PO HS, (Reported) Topiramate 50 Mg Tablet, 150 MG PO BID, (Reported) TAKES 3 (50MG) TABLETS Patient Home Medication List Home Medication List Reviewed: Yes Review of Systems Review of Systems Constitutional: see HPI Eyes: No Symptoms Reported Ears, Nose, Mouth, Throat: no symptoms reported Respiratory: no symptoms reported Cardiovascular: no symptoms reported Genitourinary: no symptoms reported Musculoskeletal: no symptoms reported Skin: no symptoms reported Psychiatric/Neurological: See HPI, Headache Past Lkaxtnf-Zmyxxg-Tuklwn Hx Patient Social History Alcohol Use: Occasionally Uses Recreational Drug Use: No Smoking Status: Current Everyday Smoker Type Used: Cigarettes Former Smoker, Quit: Sep 17, 2018 2nd Hand Smoke Exposure: Yes Recent Foreign Travel: No Contact w/Someone Who Travel: No Recent Infectious Disease Expo: No Recent Hopitalizations: No Immunizations Up To Date PED Vaccines UTD: Yes Date of Pneumonia Vaccine: Apr 18, 2018 Date of Influenza Vaccine: Apr 24, 2019 Seasonal Allergies Seasonal Allergies: No Past Medical History Surgeries: Yes Cardiac, Gallbladder, 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, Oophorectomy, Orthopedic, 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 Respiratory: Yes (cpap at night) Sleep Apnea, COPD Currently Using CPAP: Yes Currently Using BIPAP: No Cardiac: Yes (HEART CATH-NO STENTS, paroxysmal a-fib) Atrial Fibrillation, High Cholesterol, Hypertension Neurological: Yes Concussion, Headaches /Migraines, TIA, Traumatic Brain Injury Reproductive Disorders: No (1 OVARY REMOVED, TUBES TIED ) Female Reproductive Disorders: Menstrual Problems, 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: 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 Sexually Transmitted Disease: No HIV/AIDS: No Genitourinary: Yes Bladder Infection, Kidney Stones Gastrointestinal: Yes Gastroesophageal Reflux, Chronic Diarrhea Musculoskeletal: Yes (BILAT KNEE SCOPES) Arthritis, Chronic Back Pain Endocrine: Yes (NON-COMPLIANT) Diabetes, Non-Insulin dep HEENT: Yes (GLASSES, MISSING SOME TEETH) Loss of Vision: Bilateral Cancer: No Psychosocial: Yes (EXTENSIVE PSYCH ISSUES) Anxiety, Depression Integumentary: No Blood Disorders: No (ANEMIA) Adverse Reaction/Blood Tranf: No (N/A) Family Medical History Myocardial infarction GRANDMOTHER AUNT GRANDFATHER Seizure disorder Stroke 19 MOTHER GRANDMOTHER AUNT MATERNAL GRANDFATHER No Pertinent Family Hx Physical Exam Vital Signs Vital Signs - First Documented 08/02/19 16:10 Temp 36.9 Pulse 93 Resp 18 B/P (MAP) 142/88 (106) Pulse Ox 97 O2 Delivery Room Air Capillary Refill : Less Than 3 Seconds Height, Weight, BMI Height: 5'0" Weight: 303lbs. 6.0oz. 137.084224ir; 50.00 BMI Method:Stated General Appearance: WD/WN, no apparent distress HEENT: PERRL/EOMI, normal ENT inspection Neck: non-tender, full range of motion Cardiovascular: regular rate, rhythm, no murmur Respiratory: normal breath sounds, no respiratory distress, no accessory muscle use Extremities: normal range of motion, non-tender Psychiatric: alert, oriented x 3 Crainal Nerves: normal hearing, normal speech, PERRL Skin: normal color, warm/dry Progress/Results/Core Measures Results/Orders Lab Results Laboratory Tests Test 08/02/19 16:29 Range/Units White Blood Count 13.5 H 4.3-11.0 10^3/uL Red Blood Count 5.20 4.35-5.85 10^6/uL Hemoglobin 12.0 11.5-16.0 G/DL Hematocrit 37 35-52 % Mean Corpuscular Volume 71 L 80-99 FL Mean Corpuscular Hemoglobin 23 L 25-34 PG Mean Corpuscular Hemoglobin Concent 32 32-36 G/DL Red Cell Distribution Width 17.3 H 10.0-14.5 % Platelet Count 427 H 130-400 10^3/uL Mean Platelet Volume 10.8 H 7.4-10.4 FL Neutrophils (%) (Auto) 63 42-75 % Lymphocytes (%) (Auto) 28 12-44 % Monocytes (%) (Auto) 5 0-12 % Eosinophils (%) (Auto) 3 0-10 % Basophils (%) (Auto) 1 0-10 % Neutrophils # (Auto) 8.5 H 1.8-7.8 X 10^3 Lymphocytes # (Auto) 3.7 1.0-4.0 X 10^3 Monocytes # (Auto) 0.7 0.0-1.0 X 10^3 Eosinophils # (Auto) 0.5 H 0.0-0.3 10^3/uL Basophils # (Auto) 0.1 0.0-0.1 10^3/uL Sodium Level 137 135-145 MMOL/L Potassium Level 4.1 3.6-5.0 MMOL/L Chloride Level 107 98-107 MMOL/L Carbon Dioxide Level 19 L 21-32 MMOL/L Anion Gap 11 5-14 MMOL/L Blood Urea Nitrogen 17 7-18 MG/DL Creatinine 1.04 0.60-1.30 MG/DL Estimat Glomerular Filtration Rate 57 BUN/Creatinine Ratio 16 Glucose Level 173 H 70-105 MG/DL Calcium Level 9.2 8.5-10.1 MG/DL Corrected Calcium 9.0 8.5-10.1 MG/DL Total Bilirubin 0.2 0.1-1.0 MG/DL Aspartate Amino Transf (AST/SGOT) 15 5-34 U/L Alanine Aminotransferase (ALT/SGPT) 24 0-55 U/L Alkaline Phosphatase 95 40-136 U/L Total Protein 7.9 6.4-8.2 GM/DL Albumin 4.3 3.2-4.5 GM/DL My Orders Orders - EMPERATRIZ LUNA APRN Cbc With Automated Diff (08/02/19 16:18) Comprehensive Metabolic Panel (08/02/19 16:18) Ed Iv/Invasive Line Start (08/02/19 16:18) Ns Iv 1000 Ml (Sodium Chloride 0.9%) (08/02/19 16:30) Ketorolac Injection (Toradol Injection) (08/02/19 16:30) Prochlorperazine Injection (Compazine In (08/02/19 16:30) Diphenhydramine Injection (Benadryl Inje (08/02/19 16:30) Dexamethasone Injection (Decadron Inject (08/02/19 16:30) Ct Head Wo (08/02/19 17:02) Medications Given in ED Current Medications Medications Dose Ordered Sig/Lisa Route Start Time Stop Time Status Last Admin Dose Admin Dexamethasone Sodium Phosphate 10 mg ONCE ONCE IV 08/02/19 16:30 08/02/19 16:31 DC 08/02/19 16:41 10 MG Diphenhydramine HCl 25 mg ONCE ONCE IVP 08/02/19 16:30 08/02/19 16:31 DC 08/02/19 16:41 25 MG Ketorolac Tromethamine 30 mg ONCE ONCE IVP 08/02/19 16:30 08/02/19 16:31 DC 1/15/20 16:41 30 MG Prochlorperazine Edisylate 10 mg ONCE ONCE IV 08/02/19 16:30 08/02/19 16:31 DC 08/02/19 16:41 10 MG Vital Signs/I&O 08/02/19 16:10 Temp 36.9 Pulse 93 Resp 18 B/P (MAP) 142/88 (106) Pulse Ox 97 O2 Delivery Room Air Blood Pressure Mean: 106 Departure Communication (Admissions) 1725-Pt refuses ct scan of head. Impression Primary Impression: Headache Disposition: HOME, SELF-CARE Condition: Stable Departure-Patient Inst. Decision time for Depature: 17:25 Referrals: OBINNA HARDING MD (PCP/Family) Primary Care Physician Patient Instructions: Migraine Headache (DC) Scripts Codeine/Butalbital/ASA/Caffein (Fiorinal-Cod [id number] Cap) 1 Each Capsule 1 EACH PO Q4H PRN for headache, #10 CAP Prov: EMPERATRIZ LUNA TRAIN GATE ATTENDANT 08/02/19 EMPERATRIZ LUNA TRAIN GATE ATTENDANT Aug 02, 2019 16:24
[2019-08-02] MEDS ORDERED: NS IV 1000 ML 1,000 ML IV SCH (16:30)
[2019-08-02] MEDS ORDERED: diphenhydrAMINE 50 MG/ML INJ (BENADRYL) IVP ONE (16:30)
[2019-08-02] MEDS ORDERED: PROCHLORPERAZINE 10 MG/2ML INJ (COMPAZINE) IV ONE (16:30)
[2019-08-02] MEDS ORDERED: DEXAMETHASONE 10 MG/ML (DECADRON) 1 ML VIAL IV ONE (16:30)
[2019-08-02] MEDS ORDERED: KETOROLAC 30 MG/ML VIAL IVP ONE (16:30)
[2019-08-02 16:36] LABS: BASOPHILS # (AUTO) 0.1 10^3/uL (0.0-0.1); BASOPHILS % (AUTO) 1 % (0-10); EOSINOPHILS # (AUTO) 0.5 10^3/uL (0.0-0.3); EOSINOPHILS % (AUTO) 3 % (0-10); HEMATOCRIT 37 % (35-52); LYMPHOCYTES # (AUTO) 3.7 X 10^3 (1.0-4.0); LYMPHOCYTES % (AUTO) 28 % (12-44); MEAN CORPUSCULAR HEMOGLOBIN 23 PG (25-34); MEAN CORPUSCULAR HGB CONC 32 G/DL (32-36); MEAN CORPUSCULAR VOLUME 71 FL (80-99); MEAN PLATELET VOLUME 10.8 FL (7.4-10.4); MONOCYTES # (AUTO) 0.7 X 10^3 (0.0-1.0); MONOCYTES % (AUTO) 5 % (0-12); NEUTROPHILS # (AUTO) 8.5 X 10^3 (1.8-7.8); NEUTROPHILS % (AUTO) 63 % (42-75); PLATELET COUNT 427 10^3/uL (130-400); RED CELL DISTRIBUTION WIDTH 17.3 % (10.0-14.5); WHITE BLOOD COUNT 13.5 10^3/uL (4.3-11.0)
[2019-08-02 17:01] LABS: ALBUMIN 4.3 GM/DL (3.2-4.5); BILIRUBIN,TOTAL 0.2 MG/DL (0.1-1.0); CALCIUM 9.2 MG/DL (8.5-10.1); CREATININE SERUM 1.04 MG/DL (0.60-1.30); POTASSIUM 4.1 MMOL/L (3.6-5.0); TOTAL PROTEIN 7.9 GM/DL (6.4-8.2)
[2019-08-02] MEDS ORDERED: CODE1CAP35 PO (17:26)
[2019-08-02 17:34] VITALS: BP 132/74
== END 2019-08-02 17:33 | disposition home or self-care (01) ==
LOC: EDUNIT# 15:56 → ER 15:57
DX: R51 Headache (principal); I10 Essential (primary) hypertension; E11.9 Type 2 diabetes mellitus without complications; E78.00 Pure hypercholesterolemia, unspecified; J44.9 Chronic obstructive pulmonary disease, unspecified; I48.0 Paroxysmal atrial fibrillation; F41.9 Anxiety disorder, unspecified; F32.9 Major depressive disorder, single episode, unspecified; G47.30 Sleep apnea, unspecified; K21.9 Gastro-esophageal reflux disease without esophagitis; D64.9 Anemia, unspecified; F17.210 Nicotine dependence, cigarettes, uncomplicated; Z99.89 Dependence on other enabling machines and devices; Z86.69 Personal history of other diseases of the nervous system and sense organs; Z86.73 Personal history of transient ischemic attack (TIA), and cerebral infarction without residual deficits; Z90.710 Acquired absence of both cervix and uterus; Z87.442 Personal history of urinary calculi; Z88.0 Allergy status to penicillin; Z88.8 Allergy status to other drugs, medicaments and biological substances; Z79.01 Long term (current) use of anticoagulants; Z79.52 Long term (current) use of systemic steroids; Z79.51 Long term (current) use of inhaled steroids; Z79.84 Long term (current) use of oral hypoglycemic drugs; Z98.51 Tubal ligation status; Z82.49 Family history of ischemic heart disease and other diseases of the circulatory system
CPT/HCPCS: 36415; 80053; 85025; 96361; 96374; 96375

== ENCOUNTER 2019-08-05 16:26 | Emergency (ER) | payer MEDICARE, MEDICAID ==
[~2019-08-05] VITALS: Ht 165 cm; Wt 140.0 kg
[~2019-08-05 16:26] MED LIST changes: +CODE1CAP35 PO
[2019-08-05] MEDS ORDERED: NS IV 1000 ML 1,000 ML IV SCH (17:25)
[2019-08-05] MEDS ORDERED: fentaNYL INJECTION 100 MCG/2 ML AMP IVP ONE (17:30)
[2019-08-05 17:54] LABS: HEMATOCRIT 36 % (35-52); HEMOGLOBIN 11.5 G/DL (11.5-16.0); LYMPHOCYTES % (AUTO) 33 % (12-44); MEAN CORPUSCULAR HEMOGLOBIN 23 PG (25-34); MEAN CORPUSCULAR HGB CONC 32 G/DL (32-36); MEAN CORPUSCULAR VOLUME 73 FL (80-99); MEAN PLATELET VOLUME 11.1 FL (7.4-10.4); MONOCYTES % (AUTO) 6 % (0-12); NEUTROPHILS % (AUTO) 58 % (42-75); PLATELET COUNT 357 10^3/uL (130-400); RED CELL DISTRIBUTION WIDTH 17.8 % (10.0-14.5); WHITE BLOOD COUNT 13.5 10^3/uL (4.3-11.0)
[2019-08-05 17:55] LABS: BASOPHILS # (AUTO) 0.1 10^3/uL (0.0-0.1); BASOPHILS % (AUTO) 1 % (0-10); EOSINOPHILS # (AUTO) 0.4 10^3/uL (0.0-0.3); EOSINOPHILS % (AUTO) 3 % (0-10); LYMPHOCYTES # (AUTO) 4.5 X 10^3 (1.0-4.0); MONOCYTES # (AUTO) 0.8 X 10^3 (0.0-1.0); NEUTROPHILS # (AUTO) 7.8 X 10^3 (1.8-7.8)
--- NOTE | 2019-08-05 17:59 | ED Headache ---
General Chief Complaint: Head/Cervical Problems Stated Complaint: MIGRAINE, DIZZY, FELL THIS AM Nursing Triage Note: PT TO ED W/ C/O HEAD PAIN ONSET THIS AM. PT REPORTS SHE "FELL ET HIT HER HEAD CAUSING A HEADACHE OR THE HEADACHE CAUSED HER TO FALL." PT REPORTS SHE DOES NOT REMEMBER FALLING BUT STATES HER " FOUND HER ET HELPED HER OFF THE FLOOR" AT HOME. Nursing Sepsis Screen: No Definite Risk Source: patient Exam Limitations: no limitations History of Present Illness Date Seen by Provider: Aug 05, 2019 Time Seen by Provider: 17:12 Initial Comments This 48-year-old woman presents to the emergency room with complaints of right- sided headache. She has had fairly persistent headache waxing and waning since having a hysterectomy on July 04. She reports multiple visits to the ER and the clinic for treatment of headache. She has received injections of Toradol, antiemetics, and dexamethasone but headache could to use to rebound. She reports somehow ending up on the floor last night when going to the bathroom. She does not have a clear recollection of how that happened. She does not recall hitting her head. She called her from the other room and had him help get her up. Her pain is very distracting and makes her feel confused. She takes multiple medications for her headache including Topamax, gabapentin, ibuprofen, and metoprolol. Patient notes she also takes Eliquis because of history of "mini stroke" and A. fib. Today her headache is more severe than usual. She denies any visual changes, nausea, or vomiting. She was prescribed Fiorinal-Cod [id number] at her last ER visit but was unable to fill it as it was not covered by her insurance. Allergies and Home Medications Allergies Coded Allergies: Penicillins (Unverified Allergy, Mild, Hives, 06/28/19) povidone-iodine (Unverified Allergy, Mild, Hives, 06/28/19) estradiol (Unverified Allergy, Unknown, 08/05/19) Home Medications Acetaminophen 500 Mg Tablet, 1,000 MG PO Q8HR Prescribed by: MADISON GUNTER on 07/05/19 103 Albuterol Sulfate 1 Puff Puff, 2 PUFF INH QID PRN for SHORTNESS OF BREATH, (Reported) Apixaban 5 Mg Tablet, 5 MG PO BID, (Reported) Atorvastatin Calcium 10 Mg Tablet, 10 MG PO HS, (Reported) Codeine/Butalbital/ASA/Caffein 1 Each Capsule, 1 EACH PO Q4H PRN for headache Prescribed by: EMPERATRIZ LUNA on 08/02/19 1726 Estradiol 1 Each Patch.tdwk, 1 EACH TD Weekly Prescribed by: MADISON UGNTER on 07/05/19 1034 Fluoxetine HCl 10 Mg Capsule, 10 MG PO DAILY, (Reported) Fluticasone/Vilanterol 1 Each Blst.w.dev, 1 EACH IH DAILY, (Reported) Gabapentin 600 Mg Tablet, 1,200 MG PO TID, (Reported) TAKES 2 (600MG) TABLETS Ibuprofen 600 Mg Tablet, 600 MG PO Q6H Prescribed by: MADISON GUNTER on 07/05/19 1034 Metformin HCl 1,000 Mg Tablet, 1,000 MG PO BID, (Reported) Omeprazole 40 Mg Capsule.dr, 40 MG PO DAILY, (Reported) Oxycodone Hcl 5 Mg Tab, 5 MG PO Q4H PRN for PAIN-SEVERE Prescribed by: MADISON GUNTER on 07/05/19 1036 Prednisone 20 Mg Tab, 20 MG PO DAILY Prescribed by: NIK BARTLETT on 08/05/19 1849 Propranolol HCl 120 Mg Cap.sa.24h, 120 MG PO DAILY, (Reported) Tizanidine HCl 2 Mg Tablet, 6 MG PO HS, (Reported) Topiramate 50 Mg Tablet, 150 MG PO BID, (Reported) TAKES 3 (50MG) TABLETS Patient Home Medication List Home Medication List Reviewed: Yes Review of Systems Review of Systems Constitutional: no symptoms reported Eyes: No Symptoms Reported Ears, Nose, Mouth, Throat: no symptoms reported Respiratory: no symptoms reported Cardiovascular: no symptoms reported Gastrointestinal: no symptoms reported Genitourinary: no symptoms reported : No Musculoskeletal: no symptoms reported Skin: no symptoms reported Psychiatric/Neurological: See HPI Past Fkwapkq-Xjozzf-Idgtzq Hx Past Med/Social Hx: Reviewed Nursing Past Med/Soc Hx Patient Social History Alcohol Use: Denies Use Recreational Drug Use: No Smoking Status: Current Everyday Smoker Type Used: Cigarettes Former Smoker, Quit: Sep 17, 2018 2nd Hand Smoke Exposure: Yes Recent Foreign Travel: No Contact w/Someone Who Travel: No Recent Infectious Disease Expo: No Recent Hopitalizations: No Immunizations Up To Date PED Vaccines UTD: Yes Date of Pneumonia Vaccine: Apr 18, 2018 Date of Influenza Vaccine: Apr 24, 2019 Seasonal Allergies Seasonal Allergies: No Past Medical History Surgeries: Yes Cardiac, Gallbladder, 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, Oophorectomy, Orthopedic, 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 Respiratory: Yes (cpap at night) Sleep Apnea, COPD Currently Using CPAP: Yes Currently Using BIPAP: No Cardiac: Yes (HEART CATH-NO STENTS, paroxysmal a-fib) Atrial Fibrillation, High Cholesterol, Hypertension Neurological: Yes Concussion, Headaches /Migraines, TIA, Traumatic Brain Injury Reproductive Disorders: No (1 OVARY REMOVED, TUBES TIED ) Female Reproductive Disorders: Menstrual Problems, 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 Sexually Transmitted Disease: No HIV/AIDS: No Genitourinary: Yes Bladder Infection, Kidney Stones Gastrointestinal: Yes Gastroesophageal Reflux, Chronic Diarrhea Musculoskeletal: Yes (BILAT KNEE SCOPES) Arthritis, Chronic Back Pain Endocrine: Yes (NON-COMPLIANT) Diabetes, Non-Insulin dep HEENT: Yes (GLASSES, MISSING SOME TEETH) Loss of Vision: Bilateral Cancer: No Psychosocial: Yes (EXTENSIVE PSYCH ISSUES) Anxiety, Depression Integumentary: No Blood Disorders: No (ANEMIA) Adverse Reaction/Blood Tranf: No (N/A) Family Medical History Reviewed Nursing Family Hx Myocardial infarction GRANDMOTHER AUNT GRANDFATHER Seizure disorder Stroke 19 MOTHER GRANDMOTHER AUNT MATERNAL GRANDFATHER No Pertinent Family Hx Physical Exam Vital Signs Vital Signs - First Documented 08/05/19 16:30 Temp 36.9 Pulse 82 Resp 18 B/P (MAP) 167/95 (119) Pulse Ox 96 O2 Delivery Room Air Capillary Refill : Less Than 3 Seconds Height, Weight, BMI Height: 5'0" Weight: 303lbs. 6.0oz. 137.840629wt; 51.00 BMI Method:Stated General Appearance: WD/WN, moderate distress HEENT: PERRL/EOMI, normal ENT inspection, TMs normal, pharynx normal Neck: normal inspection Cardiovascular: regular rate, rhythm, no edema, no murmur Respiratory: lungs clear, normal breath sounds, no respiratory distress Extremities: normal inspection, no pedal edema Psychiatric: alert, oriented x 3 Crainal Nerves: normal hearing, normal speech, PERRL Coordination/Gait: normal finger to nose Motor/Sensory: no motor deficit, no sensory deficit Skin: normal color, warm/dry Progress/Results/Core Measures Results/Orders Lab Results Laboratory Tests Test 08/05/19 17:45 Range/Units White Blood Count 13.5 H 4.3-11.0 10^3/uL Red Blood Count 4.98 4.35-5.85 10^6/uL Hemoglobin 11.5 11.5-16.0 G/DL Hematocrit 36 35-52 % Mean Corpuscular Volume 73 L 80-99 FL Mean Corpuscular Hemoglobin 23 L 25-34 PG Mean Corpuscular Hemoglobin Concent 32 32-36 G/DL Red Cell Distribution Width 17.8 H 10.0-14.5 % Platelet Count 357 130-400 10^3/uL Mean Platelet Volume 11.1 H 7.4-10.4 FL Neutrophils (%) (Auto) 58 42-75 % Lymphocytes (%) (Auto) 33 12-44 % Monocytes (%) (Auto) 6 0-12 % Eosinophils (%) (Auto) 3 0-10 % Basophils (%) (Auto) 1 0-10 % Neutrophils # (Auto) 7.8 1.8-7.8 X 10^3 Lymphocytes # (Auto) 4.5 H 1.0-4.0 X 10^3 Monocytes # (Auto) 0.8 0.0-1.0 X 10^3 Eosinophils # (Auto) 0.4 H 0.0-0.3 10^3/uL Basophils # (Auto) 0.1 0.0-0.1 10^3/uL Sodium Level 138 135-145 MMOL/L Potassium Level 4.2 3.6-5.0 MMOL/L Chloride Level 111 H 98-107 MMOL/L Carbon Dioxide Level 15 L 21-32 MMOL/L Anion Gap 12 5-14 MMOL/L Blood Urea Nitrogen 13 7-18 MG/DL Creatinine 0.98 0.60-1.30 MG/DL Estimat Glomerular Filtration Rate > 60 BUN/Creatinine Ratio 13 Glucose Level 163 H 70-105 MG/DL Calcium Level 8.9 8.5-10.1 MG/DL Magnesium Level 1.9 1.6-2.4 MG/DL My Orders Orders - NIK SCHWARTZ MD Ed Iv/Invasive Line Start (08/05/19 17:25) Ns Iv 1000 Ml (Sodium Chloride 0.9%) (08/05/19 17:25) Basic Metabolic Panel (08/05/19 17:25) Cbc With Automated Diff (08/05/19 17:25) Magnesium (08/05/19 17:25) Fentanyl Injection (Sublimaze Injection (08/05/19 17:30) Ct Head Wo (08/05/19 17:26) Methylprednisolone Sod Succ (Solu-Medrol (08/05/19 19:00) Medications Given in ED Vital Signs/I&O 08/05/19 08/05/19 16:30 19:03 Temp 36.9 Pulse 82 75 Resp 18 18 B/P (MAP) 167/95 (119) 100/58 Pulse Ox 96 9 O2 Delivery Room Air Room Air Blood Pressure Mean: 119 Progress Progress Note #1: Progress Note Patient is on Eliquis therapy and is having a more severe headache than usual. She also does not recall if she actually hit her head or not yesterday. We are therefore obtaining a CT scan. Basic labs are being ordered as well. She is receiving fentanyl for her pain. She has had many doses of NSAIDs over the course of her headache this past month. I informed her she should not be taking NSAID medication while on Eliquis. Heart is in sinus rhythm on the monitor. Progress Note #2: Progress Note Patient's symptoms improved significantly with IV fluids and fentanyl. She was given Solu-Medrol and prescribed prednisone to help prevent rebound headache. Patient suspects her headaches are being triggered by estrogen withdrawal after hysterectomy. She has had problems with estrogen replacement and needs to discuss further with her director of special education. CT of the head was unremarkable. Diagnostic Imaging Diagonstic Imaging: CT Plain Films/CT/US/NM/MRI: head Comments CT head viewed by me and report reviewed. See report below: NAME: EUGENE FUENTES [facility] REC#: [id number] PT STATUS: DEP ER : 1970 PHYSICIAN: NIK SCHWARTZ MD ADMIT DATE: 08/05/19/ER Signed Date of Exam:08/05/19 CT HEAD WO PROCEDURE: CT head without contrast. TECHNIQUE: Multiple contiguous axial images were obtained through the brain without the use of intravenous contrast. Auto Exposure Controls were utilized during the CT exam to meet ALARA standards for radiation dose reduction. INDICATION: Dizziness. Headache. COMPARISON: 09/28/2018. FINDINGS: No intracranial hemorrhage, mass effect, hydrocephalus or extra-axial fluid collections. No CT evidence of a territorial infarction. Osseous structures are intact. The visualized paranasal sinuses and mastoids are clear. IMPRESSION: No acute intracranial CT findings. Dictated by: Dictated on workstation # [id number] Dict: 08/05/191822 Trans: 08/05/191952 RICHARD [id number] Interpreted by: KATHRYN ISRAEL MD Electronically signed by: KATHRYN ISRAEL MD 08/05/191952 Departure Impression Primary Impression: Migraine headache Qualified Codes: G43.009 - Migraine without aura, not intractable, without status migrainosus Additional Impression: Fall on same level Qualified Codes: W18.30XA - Fall on same level, unspecified, initial encounter Disposition: HOME, SELF-CARE Condition: Improved Departure-Patient Inst. Decision time for Depature: 18:47 Referrals: OBINNA HARDING MD (PCP/Family) Primary Care Physician Patient Instructions: Migraine Headache (DC) Add. Discharge Instructions: Follow-up with your primary care provider and your director of special education as soon as possible. Continue with your usual medications as previously prescribed. You may additionally take Tylenol (acetaminophen) for added pain relief. Avoid use of NSAID medications such as ibuprofen or naproxen while using Eliquis. Return to care if you have worsening symptoms. Start prednisone tomorrow and complete the 4 day course. This may help prevent rebound headache. Check blood sugars at least a couple times a day while on prednisone and stop prednisone if blood sugars are uncontrollably high. All discharge instructions reviewed with patient and/or family. Voiced understanding. Scripts Prednisone (Prednisone) 20 Mg Tab 20 MG PO DAILY, #4 TAB 0 Refills Prov: NIK SCHWARTZ MD 08/05/19 Copy Copies To 1: OBINNA HARDING MD, JOSHUA T MD Aug 05, 2019 17:59
--- NOTE | 2019-08-05 18:03 | NUR ---
CALLED TO ROOM PATIENT CONCERN THAT IV MAY NOT BE WORKING , NO SWLLING AT SITE IV INFUSING WELL. INFORMED PATIENT WILL CON'T TO WATCH SITE.
[2019-08-05 18:10] LABS: BUN/CREATININE RATIO 13; CALCIUM 8.9 MG/DL (8.5-10.1); CARBON DIOXIDE 15 MMOL/L (21-32); CHLORIDE 111 MMOL/L (98-107); CREATININE SERUM 0.98 MG/DL (0.60-1.30); GFR ESTIMATED > 60; GLUCOSE 163 MG/DL (70-105); MAGNESIUM 1.9 MG/DL (1.6-2.4); POTASSIUM 4.2 MMOL/L (3.6-5.0); SODIUM 138 MMOL/L (135-145)
--- NOTE | 2019-08-05 18:26 | Diagnostic Imaging Report ---
PROCEDURE: CT head without contrast. TECHNIQUE: Multiple contiguous axial images were obtained through the brain without the use of intravenous contrast. Auto Exposure Controls were utilized during the CT exam to meet ALARA standards for radiation dose reduction. INDICATION: Dizziness. Headache. COMPARISON: 09/28/2018. FINDINGS: No intracranial hemorrhage, mass effect, hydrocephalus or extra-axial fluid collections. No CT evidence of a territorial infarction. Osseous structures are intact. The visualized paranasal sinuses and mastoids are clear. IMPRESSION: No acute intracranial CT findings. Dictated by: Dictated on workstation # [id number]
--- NOTE | 2019-08-05 18:26 | NUR ---
TO ROOM TEXTING ON PHONE REPORTS IS FEELILNG BETTER. IV CON'T TO INFUSE. NO SWELLING NOTED AT IV SITE.
[2019-08-05] MEDS ORDERED: PRD20T PO (18:49)
[2019-08-05] MEDS ORDERED: methylPREDNISolone 125 MG (Solu-MEDROL) VIAL IVP ONE (19:00)
[2019-08-05 19:03] VITALS: BP 100/58
== END 2019-08-05 18:55 | disposition home or self-care (01) ==
LOC: EDUNIT# 16:26 → ER 16:29
DX: G43.909 Migraine, unspecified, not intractable, without status migrainosus (principal); I10 Essential (primary) hypertension; E11.9 Type 2 diabetes mellitus without complications; E78.00 Pure hypercholesterolemia, unspecified; I48.0 Paroxysmal atrial fibrillation; J44.9 Chronic obstructive pulmonary disease, unspecified; F41.9 Anxiety disorder, unspecified; F32.9 Major depressive disorder, single episode, unspecified; G47.30 Sleep apnea, unspecified; D64.9 Anemia, unspecified; K21.9 Gastro-esophageal reflux disease without esophagitis; F17.210 Nicotine dependence, cigarettes, uncomplicated; Z99.89 Dependence on other enabling machines and devices; Z90.710 Acquired absence of both cervix and uterus; Z98.51 Tubal ligation status; Z88.0 Allergy status to penicillin; Z87.442 Personal history of urinary calculi; Z88.8 Allergy status to other drugs, medicaments and biological substances; Z79.52 Long term (current) use of systemic steroids; Z79.01 Long term (current) use of anticoagulants; Z79.51 Long term (current) use of inhaled steroids; Z79.84 Long term (current) use of oral hypoglycemic drugs; Z86.73 Personal history of transient ischemic attack (TIA), and cerebral infarction without residual deficits; Z82.49 Family history of ischemic heart disease and other diseases of the circulatory system; W18.30XA Fall on same level, unspecified, initial encounter
CPT/HCPCS: 36415; 70450; 80048; 83735; 85025; 96361; 96374; 96375

== ENCOUNTER 2019-08-23 18:20 | Emergency (ER) | payer MEDICARE, MEDICAID ==
[~2019-08-23] VITALS: Ht 165 cm; Wt 130.0 kg
--- NOTE | 2019-08-23 19:50 | Diagnostic Imaging Report ---
PROCEDURE: CT head without contrast. TECHNIQUE: Multiple contiguous axial images were obtained through the brain without the use of intravenous contrast. Auto Exposure Controls were utilized during the CT exam to meet ALARA standards for radiation dose reduction. INDICATION: Headache. COMPARISON: 08/05/2019. FINDINGS: No intracranial hemorrhage, mass effect, hydrocephalus or extra-axial fluid collections. No CT evidence of a territorial infarction. Osseous structures are intact. The visualized paranasal sinuses and mastoids are clear. Stable small fluid collection in the subcutaneous tissues overlying the left occiput measuring up to 2.0 cm most compatible with an epidermoid cyst based on location. IMPRESSION: No acute intracranial CT findings. Dictated by: Dictated on workstation # [id number]
[2019-08-23] MEDS ORDERED: KETOROLAC 60 MG/2 ML VIAL IM ONE (20:00)
[2019-08-23] MEDS ORDERED: PROCHLORPERAZINE 10 MG/2ML INJ (COMPAZINE) IM ONE (20:00)
[2019-08-23] MEDS ORDERED: diphenhydrAMINE 50 MG/ML INJ (BENADRYL) IM ONE (20:00)
--- NOTE | 2019-08-23 20:00 | ED Headache ---
General Chief Complaint: Head/Cervical Problems Stated Complaint: HEADACHE,HAS HAD STROKE Nursing Triage Note: PT PRESENTS TO ED WITH COMPLAINTS OF TOMPKINS X A "FEW DAYS". PT UNABLE TO PINPOINT EXACT TIME FRAME OF WHEN S/S STARTED. PT ALSO REPORTS FATIGUE, AND L ARM NUMBNESS, AND "FOGGY MINDED" X 1400. Nursing Sepsis Screen: No Definite Risk Source: patient Exam Limitations: no limitations History of Present Illness Date Seen by Provider: Aug 23, 2019 Time Seen by Provider: 19:30 Initial Comments ER with reports of headache for "a few days", earlier today she had some left arm numbness. Her daughters. She had a TIA. Her numbness is still there but better. She states she's been under a lot of stress lately. Timing/Duration: other ("several days) Severity/Quality: moderate Location: global Prior Headaches/Recent Trauma: frequent headaches Allergies and Home Medications Allergies Coded Allergies: Penicillins (Unverified Allergy, Mild, Hives, 06/28/19) povidone-iodine (Unverified Allergy, Mild, Hives, 06/28/19) estradiol (Unverified Allergy, Unknown, 08/05/19) Home Medications Acetaminophen 500 Mg Tablet, 1,000 MG PO Q8HR Prescribed by: MADISON GUNTER on 07/05/19 1036 Albuterol Sulfate 1 Puff Puff, 2 PUFF INH QID PRN for SHORTNESS OF BREATH, (Reported) Apixaban 5 Mg Tablet, 5 MG PO BID, (Reported) Atorvastatin Calcium 10 Mg Tablet, 10 MG PO HS, (Reported) Codeine/Butalbital/ASA/Caffein 1 Each Capsule, 1 EACH PO Q4H PRN for headache Prescribed by: EMPERATRIZ LUNA on 08/02/19 1726 Fluoxetine HCl 10 Mg Capsule, 10 MG PO DAILY, (Reported) Fluticasone/Vilanterol 1 Each Blst.w.dev, 1 EACH IH DAILY, (Reported) Gabapentin 600 Mg Tablet, 1,200 MG PO TID, (Reported) TAKES 2 (600MG) TABLETS Ibuprofen 600 Mg Tablet, 600 MG PO Q6H Prescribed by: MADISON GUNTER on 07/05/19 1034 Metformin HCl 1,000 Mg Tablet, 1,000 MG PO BID, (Reported) Omeprazole 40 Mg Capsule.dr, 40 MG PO DAILY, (Reported) Oxycodone Hcl 5 Mg Tab, 5 MG PO Q4H PRN for PAIN-SEVERE Prescribed by: MADISON GUNTER on 07/05/19 1036 Prednisone 20 Mg Tab, 20 MG PO DAILY Prescribed by: NIK BARTLETT on 08/05/19 1849 Propranolol HCl 120 Mg Cap.sa.24h, 120 MG PO DAILY, (Reported) Tizanidine HCl 2 Mg Tablet, 6 MG PO HS, (Reported) Topiramate 50 Mg Tablet, 150 MG PO BID, (Reported) TAKES 3 (50MG) TABLETS Patient Home Medication List Home Medication List Reviewed: Yes Review of Systems Review of Systems Constitutional: see HPI Eyes: No Symptoms Reported Ears, Nose, Mouth, Throat: no symptoms reported Respiratory: no symptoms reported Cardiovascular: no symptoms reported Genitourinary: no symptoms reported Skin: no symptoms reported Psychiatric/Neurological: Headache, Numbness Past Yjlpqct-Tevooi-Ovpzrg Hx Patient Social History Alcohol Use: Denies Use Recreational Drug Use: No Smoking Status: Current Everyday Smoker Type Used: Cigarettes Former Smoker, Quit: Sep 17, 2018 2nd Hand Smoke Exposure: Yes Recent Foreign Travel: No Contact w/Someone Who Travel: No Recent Infectious Disease Expo: No Recent Hopitalizations: No Immunizations Up To Date PED Vaccines UTD: Yes Date of Pneumonia Vaccine: Apr 18, 2018 Date of Influenza Vaccine: Apr 24, 2019 Seasonal Allergies Seasonal Allergies: No Past Medical History Surgeries: Yes (heart cath- 2019 no stent placed) Cardiac, Gallbladder, 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, Oophorectomy, Orthopedic, 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 Respiratory: Yes (cpap at night) Sleep Apnea, COPD Currently Using CPAP: Yes Currently Using BIPAP: No Cardiac: Yes (HEART CATH-NO STENTS, paroxysmal a-fib) Atrial Fibrillation, High Cholesterol, Hypertension Neurological: Yes Concussion, Headaches /Migraines, TIA, Traumatic Brain Injury Reproductive Disorders: No (1 OVARY REMOVED, TUBES TIED ) Female Reproductive Disorders: Menstrual Problems, 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 Sexually Transmitted Disease: No HIV/AIDS: No Genitourinary: Yes Bladder Infection, Kidney Stones Gastrointestinal: Yes Gastroesophageal Reflux, Chronic Diarrhea Musculoskeletal: Yes (BILAT KNEE SCOPES) Arthritis, Chronic Back Pain Endocrine: Yes (NON-COMPLIANT) Diabetes, Non-Insulin dep HEENT: Yes (GLASSES, MISSING SOME TEETH) Loss of Vision: Bilateral Cancer: No Psychosocial: Yes (EXTENSIVE PSYCH ISSUES) Anxiety, Depression Integumentary: No Blood Disorders: No (ANEMIA) Adverse Reaction/Blood Tranf: No (N/A) Family Medical History Myocardial infarction GRANDMOTHER AUNT GRANDFATHER Seizure disorder Stroke 19 MOTHER GRANDMOTHER AUNT MATERNAL GRANDFATHER No Pertinent Family Hx Physical Exam Vital Signs Vital Signs - First Documented 08/23/19 18:28 Temp 37.1 Pulse 91 Resp 18 B/P (MAP) 136/79 (98) Pulse Ox 95 Capillary Refill : Less Than 3 Seconds Height, Weight, BMI Height: 5'0" Weight: 303lbs. 6.0oz. [id number]; 47.00 BMI Method:Stated General Appearance: WD/WN, no apparent distress, other (no distress, alert and oriented. Alleges left arm numbness but uses her left arm more than the right arm, she uses it to scratch her chest, to push herself up in bed and during conversation to point.) HEENT: PERRL/EOMI, normal ENT inspection Neck: non-tender, full range of motion Respiratory: no respiratory distress, no accessory muscle use Psychiatric: alert, oriented x 3 Crainal Nerves: normal hearing, normal speech, PERRL Coordination/Gait: normal finger to nose, normal gait Skin: normal color, warm/dry Progress/Results/Core Measures Results/Orders Lab Results Laboratory Tests Test 08/23/19 19:18 Range/Units Glucometer 200 H 70-110 MG/DL My Orders Orders - EMPERATRIZ LUNA APRN Ct Head Wo (08/23/19 18:56) Ketorolac Injection (Toradol Injection) (08/23/19 20:00) Prochlorperazine Injection (Compazine In (08/23/19 20:00) Diphenhydramine Injection (Benadryl Inje (08/23/19 20:00) Medications Given in ED Current Medications Medications Dose Ordered Sig/Lisa Route Start Time Stop Time Status Last Admin Dose Admin Diphenhydramine HCl 50 mg ONCE ONCE IM 08/23/19 20:00 08/23/19 20:01 DC 08/23/19 20:16 50 MG Ketorolac Tromethamine 60 mg ONCE ONCE IM 08/23/19 20:00 08/23/19 20:01 DC 08/23/19 20:14 60 MG Prochlorperazine Edisylate 10 mg ONCE ONCE IM 08/23/19 20:00 08/23/19 20:01 DC 08/23/19 20:14 10 MG Vital Signs/I&O 08/23/19 18:28 Temp 37.1 Pulse 91 Resp 18 B/P (MAP) 136/79 (98) Pulse Ox 95 Blood Pressure Mean: 98 Departure Communication (Admissions) 2101-states that her headache is much better, her left arm numbness tingling is gone. Will discharge to home. Impression Primary Impression: Headache Qualified Codes: R51 - Headache Disposition: HOME, SELF-CARE Condition: Stable Departure-Patient Inst. Decision time for Depature: 21:03 Referrals: OBINNA HARDING MD (PCP/Family) Primary Care Physician Patient Instructions: Headache, Adult (DC) Add. Discharge Instructions: 1. Return to ER for any concerns 2. Follow-up with your doctor next week 3. All discharge instructions reviewed with patient and/or family. Voiced understanding. EMPERATRIZ LUNA APRN Aug 23, 2019 20:00
[2019-08-23 21:14] VITALS: BP 128/80
== END 2019-08-23 21:14 | disposition home or self-care (01) ==
LOC: EDUNIT# 18:20 → ER 18:21
DX: R51 Headache (principal); J44.9 Chronic obstructive pulmonary disease, unspecified; G47.30 Sleep apnea, unspecified; I48.91 Unspecified atrial fibrillation; I10 Essential (primary) hypertension; E11.9 Type 2 diabetes mellitus without complications; F41.9 Anxiety disorder, unspecified; F32.9 Major depressive disorder, single episode, unspecified; E78.00 Pure hypercholesterolemia, unspecified; K21.9 Gastro-esophageal reflux disease without esophagitis; F17.210 Nicotine dependence, cigarettes, uncomplicated; Z82.49 Family history of ischemic heart disease and other diseases of the circulatory system; Z87.820 Personal history of traumatic brain injury; Z86.73 Personal history of transient ischemic attack (TIA), and cerebral infarction without residual deficits; Z88.0 Allergy status to penicillin; Z88.8 Allergy status to other drugs, medicaments and biological substances; Z99.89 Dependence on other enabling machines and devices; Z79.01 Long term (current) use of anticoagulants; Z79.51 Long term (current) use of inhaled steroids; Z79.84 Long term (current) use of oral hypoglycemic drugs
CPT/HCPCS: 70450; 82962

== ENCOUNTER 2019-09-09 21:41 | Emergency (ER) | payer MEDICARE, MEDICAID ==
[~2019-09-09 21:41] MED LIST changes: -MECL-106 PO; +MECL-149 PO; -OMEP-280 PO; +OMEP20CA18 PO
[2019-09-09] MEDS ORDERED: morphine INJ 10 MG/ML 1ML (SYR OR VIAL) IV STA (21:55)
--- NOTE | 2019-09-09 22:04 | ED Chest Pain ---
General Chief Complaint: Chest Pain Stated Complaint: CHEST PAIN Nursing Triage Note: Pt to room #7 via [facility] ems cart from home with c/o medial chest discomfort radiating to Lt arm. 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 Pt reports pins et needle sensation to L arm at this time. Pt reports increased life stressors. Pt states, "It feels like a fist is in there." Nursing Sepsis Screen: No Definite Risk Source: patient, EMS Exam Limitations: no limitations History of Present Illness Date Seen by Provider: Sep 09, 2019 Time Seen by Provider: 21:40 Initial Comments Patient seen on arrival from EMS from home with chief complaint of 2 hours prior to arrival she began to experience left-sided chest pain radiating down her left arm. She was just taking care of her sitting down and not doing anything strenuous. Is not worse with exertion. No shortness of breath cough fever chills. The pain eventually and went away in her shoulder and is replaced by a funky feeling of numbness but she still has feeling and ability to the sting was touch. She denies any recent musculoskeletal injuries. It is not worse with movement. She does experience a few palpitations with the pain. She says the pain waxes and wanes and is presently about a 7 out of 10 and feels like somebody's fist burrowing into her chest. Is not reproducible by direct palpation. She does have a history of diabetes, obesity, hypertension, early- onset familial coronary disease, smoking down to about 3 cigarettes per day, hyperlipidemia and is followed by Dr. Harding and Dr. Wiseman. She had clean coronary catheterization November 2017 and later this week has plans to get a loop recorder implanted by Dr. Wiseman. She denies any significant lung disease. No fevers or chills nausea sweats diarrhea or constipation. EMS gave 324 mg aspirin on route and did not give nitroglycerin because of her borderline low blood pressure of 110 systolic. The patient also notes that lately she's been under a lot of extra stress because she typically was being taken care of by her but a few weeks ago he had to have brain surgery due to a intracranial bleed and now she has become the caregiver and this is very new to her. Echocardiogram [address] Christian: Wall thickness mildly increased with concentric hypertrophy. EF of 55-65%. Cardiac catheterization November [address] Bowen: LAD left circumflex and right coronary arteries have minor plaques. Aortic root angiography without aneurysm or dissection. She has a frequent history of chest pain with undetermined etiology. Hyperlipidemia, BMI of 39.5, questionable hypertension, history of familial early onset coronary artery disease, chronic tobacco use. Allergies and Home Medications Allergies Coded Allergies: Penicillins (Unverified Allergy, Mild, Hives, 06/28/19) povidone-iodine (Unverified Allergy, Mild, Hives, 06/28/19) estradiol (Unverified Allergy, Unknown, 08/05/19) Home Medications Acetaminophen 500 Mg Tablet, 1,000 MG PO Q8HR Prescribed by: MADISON GUNTER on 07/05/19 1036 Albuterol Sulfate 1 Puff Puff, 2 PUFF INH QID PRN for SHORTNESS OF BREATH, (Reported) Apixaban 5 Mg Tablet, 5 MG PO BID, (Reported) Atorvastatin Calcium 10 Mg Tablet, 10 MG PO HS, (Reported) Codeine/Butalbital/ASA/Caffein 1 Each Capsule, 1 EACH PO Q4H PRN for headache Prescribed by: EMPERATRIZ LUNA on 08/02/19 1726 Fluoxetine HCl 10 Mg Capsule, 10 MG PO DAILY, (Reported) Fluticasone/Vilanterol 1 Each Blst.w.dev, 1 EACH IH DAILY, (Reported) Gabapentin 600 Mg Tablet, 1,200 MG PO TID, (Reported) TAKES 2 (600MG) TABLETS Ibuprofen 600 Mg Tablet, 600 MG PO Q6H Prescribed by: MADISON GUNTER on 07/05/19 1034 Metformin HCl 1,000 Mg Tablet, 1,000 MG PO BID, (Reported) Omeprazole 40 Mg Capsule.dr, 40 MG PO DAILY, (Reported) Oxycodone Hcl 5 Mg Tab, 5 MG PO Q4H PRN for PAIN-SEVERE Prescribed by: MADISON GUNTER on 07/05/19 1036 Prednisone 20 Mg Tab, 20 MG PO DAILY Prescribed by: NIK BARTLETT on 08/05/19 1849 Propranolol HCl 120 Mg Cap.sa.24h, 120 MG PO DAILY, (Reported) Tizanidine HCl 2 Mg Tablet, 6 MG PO HS, (Reported) Topiramate 50 Mg Tablet, 150 MG PO BID, (Reported) TAKES 3 (50MG) TABLETS Patient Home Medication List Home Medication List Reviewed: Yes Review of Systems Review of Systems Constitutional: see HPI; No chills, No dizziness, No fever, No malaise EENTM: No Blurred Vision, No Double Vision Respiratory: Denies Cough, Denies Orthopnea, Denies Shortness of Air, Denies SOA With Exertion Cardiovascular: See HPI, Chest Pain; Denies Edema, Denies Lightheadedness Gastrointestinal: Denies Abdominal Pain, Denies Nausea, Denies Vomiting Genitourinary: Denies Burning, Denies Discharge, Denies Drainage Musculoskeletal: No back pain, No joint pain Skin: No dryness, No lesions, No pruritus, No rash Psychiatric/Neurological: Denies Anxiety, Denies Depressed; Headache (historically but not presently), Numbness (left upper extremity), Paresthesia (left upper extremity) Past Rigperw-Slcsgh-Vtpnvr Hx Patient Social History Alcohol Use: Denies Use Recreational Drug Use: No Smoking Status: Current Everyday Smoker Type Used: Cigarettes Former Smoker, Quit: Sep 17, 2018 2nd Hand Smoke Exposure: Yes Recent Foreign Travel: No Contact w/Someone Who Travel: No Recent Infectious Disease Expo: No Recent Hopitalizations: No Immunizations Up To Date PED Vaccines UTD: Yes Date of Pneumonia Vaccine: Apr 18, 2018 Date of Influenza Vaccine: Apr 24, 2019 Seasonal Allergies Seasonal Allergies: No Past Medical History Surgeries: Yes (heart cath- 2019 no stent placed) Cardiac, Gallbladder, 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, Oophorectomy, Orthopedic, 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 Respiratory: Yes (cpap at night) Sleep Apnea, COPD Currently Using CPAP: Yes Currently Using BIPAP: No Cardiac: Yes (HEART CATH-NO STENTS, paroxysmal a-fib) Atrial Fibrillation, High Cholesterol, Hypertension Neurological: Yes Concussion, Headaches /Migraines, TIA, Traumatic Brain Injury Reproductive Disorders: No (1 OVARY REMOVED, TUBES TIED ) Female Reproductive Disorders: Menstrual Problems, 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 Sexually Transmitted Disease: No HIV/AIDS: No Genitourinary: Yes Bladder Infection, Kidney Stones Gastrointestinal: Yes Gastroesophageal Reflux, Chronic Diarrhea Musculoskeletal: Yes (BILAT KNEE SCOPES) Arthritis, Chronic Back Pain Endocrine: Yes (NON-COMPLIANT) Diabetes, Non-Insulin dep HEENT: Yes (GLASSES, MISSING SOME TEETH) Loss of Vision: Bilateral Cancer: No Psychosocial: Yes (EXTENSIVE PSYCH ISSUES) Anxiety, Depression Integumentary: No Blood Disorders: No (ANEMIA) Adverse Reaction/Blood Tranf: No (N/A) Family Medical History Myocardial infarction GRANDMOTHER AUNT GRANDFATHER Seizure disorder Stroke 19 MOTHER GRANDMOTHER AUNT MATERNAL GRANDFATHER No Pertinent Family Hx Physical Exam Vital Signs Vital Signs - First Documented Capillary Refill : Less Than 3 Seconds Height, Weight, BMI Height: 5'0" Weight: 303lbs. 6.0oz. 137.641827zk; 47.00 BMI Method:Stated General Appearance: No Apparent Distress, WD/WN HEENT: PERRL/EOMI, Pharynx Normal, Moist Mucous Membranes Neck: Full Range of Motion, Normal Inspection Respiratory: Chest Non Tender, Lungs Clear, Normal Breath Sounds, No Accessory Muscle Use, No Respiratory Distress Cardiovascular: Regular Rate, Rhythm, No Edema, Normal Peripheral Pulses Gastrointestinal: Normal Bowel Sounds, No Organomegaly Extremity: Normal Capillary Refill, Normal Inspection, Normal Range of Motion (left upper shoulder without tenderness to palpation), Non Tender (left upper shoulder), No Pedal Edema Neurologic/Psychiatric: Alert, Oriented x3, No Motor/Sensory Deficits Skin: Normal Color, Warm/Dry Progress/Results/Core Measures Results/Orders Lab Results Laboratory Tests Test 09/09/19 21:42 09/10/19 00:46 Range/Units White Blood Count 15.2 H 4.3-11.0 10^3/uL Red Blood Count 4.61 4.35-5.85 10^6/uL Hemoglobin 10.4 L 11.5-16.0 G/DL Hematocrit 35 35-52 % Mean Corpuscular Volume 75 L 80-99 FL Mean Corpuscular Hemoglobin 23 L 25-34 PG Mean Corpuscular Hemoglobin Concent 30 L 32-36 G/DL Red Cell Distribution Width 17.8 H 10.0-14.5 % Platelet Count 439 H 130-400 10^3/uL Mean Platelet Volume 11.3 H 7.4-10.4 FL Neutrophils (%) (Auto) 61 42-75 % Lymphocytes (%) (Auto) 31 12-44 % Monocytes (%) (Auto) 5 0-12 % Eosinophils (%) (Auto) 2 0-10 % Basophils (%) (Auto) 1 0-10 % Neutrophils # (Auto) 9.3 H 1.8-7.8 X 10^3 Lymphocytes # (Auto) 4.7 H 1.0-4.0 X 10^3 Monocytes # (Auto) 0.8 0.0-1.0 X 10^3 Eosinophils # (Auto) 0.3 0.0-0.3 10^3/uL Basophils # (Auto) 0.1 0.0-0.1 10^3/uL Neutrophils % (Manual) 58 % Lymphocytes % (Manual) 33 % Monocytes % (Manual) 5 % Eosinophils % (Manual) 1 % Band Neutrophils 3 % Hypochromasia SLIGHT Anisocytosis SLIGHT Prothrombin Time 12.7 12.2-14.7 SEC INR Comment 0.9 0.8-1.4 Activated Partial Thromboplast Time 29 24-35 SEC D-Dimer 0.47 0.00-0.49 UG/ML Sodium Level 141 135-145 MMOL/L Potassium Level 4.1 3.6-5.0 MMOL/L Chloride Level 109 H 98-107 MMOL/L Carbon Dioxide Level 21 21-32 MMOL/L Anion Gap 11 5-14 MMOL/L Blood Urea Nitrogen 11 7-18 MG/DL Creatinine 0.95 0.60-1.30 MG/DL Estimat Glomerular Filtration Rate > 60 BUN/Creatinine Ratio 12 Glucose Level 160 H 70-105 MG/DL Calcium Level 8.7 8.5-10.1 MG/DL Corrected Calcium 8.9 8.5-10.1 MG/DL Magnesium Level 1.7 1.6-2.4 MG/DL Total Bilirubin < 0.1 L 0.1-1.0 MG/DL Aspartate Amino Transf (AST/SGOT) 13 5-34 U/L Alanine Aminotransferase (ALT/SGPT) 14 0-55 U/L Alkaline Phosphatase 93 40-136 U/L Myoglobin 29.6 10.0-92.0 NG/ML Troponin I < 0.028 < 0.028 <0.028 NG/ML B-Type Natriuretic Peptide 25.4 <100.0 PG/ML Total Protein 7.0 6.4-8.2 GM/DL Albumin 3.8 3.2-4.5 GM/DL Lipase 14 8-78 U/L My Orders Orders - LAURENCE TILLMAN Continuous Ekg Monitoring (09/09/19 21:42) Ekg Tracing (09/09/19 21:42) Cbc With Automated Diff (09/09/19 21:55) Magnesium (09/09/19 21:55) Chest 1 View, Ap/Pa Only (09/09/19 21:55) Ekg Tracing (09/09/19 21:55) Comprehensive Metabolic Panel (09/09/19 21:55) Myoglobin Serum (09/09/19 21:55) Protime With Inr (09/09/19 21:55) Partial Thromboplastin Time (09/09/19 21:55) O2 (09/09/19 21:55) Monitor-Rhythm Ecg Trace Only (09/09/19 21:55) Lipid Panel (09/10/19 06:00) Ed Iv/Invasive Line Start (09/09/19 21:55) Lipase (09/09/19 21:55) BNP (09/09/19 21:55) Morphine Injection (Morphine Injection (09/09/19 21:55) Fibrin Degradation Products (09/09/19 21:55) Troponin I (09/09/19 21:55) Manual Differential (09/09/19 21:42) Troponin I (09/10/19 00:45) Vital Signs/I&O 09/09/19 09/09/19 21:42 21:42 Temp 37.7 Pulse 76 Resp 18 B/P (MAP) 105/65 (78) Pulse Ox 98 O2 Delivery Room Air Room Air Blood Pressure Mean: 78 Progress Progress Note #1: Time: 22:02 Progress Note Chest pain that is less likely related to coronary disease despite having historically a lot of risk factors she has a clean cardiac catheterization from 2018. No [address] changes significantly on the EKG. No fever or evidence of a pe ricarditis. We'll get some labs including troponin. We'll give her 2 mg morphine IV for her pain. Chest x-ray. No evidence of pneumonia based on history or clinical exam. No bronchospasms or wheezing auscultated. Pulmonary embolism far less likely since she's not having any shortness of breath but we can check a d- dimer since she is a smoker. No history of pathologic clotting. Dysrhythmia? We'll keep her on telemetry and discussed the case with cardiology when labs and x-ray her back. Progress Note #2: Time: 23:38 Progress Note In light of her previous cardiac catheterization less than 2 years ago her heart scores 3 points. D-dimer rules out any significant clot burden. Plan to consult cardiology and see if we can rule her out in the ER. The patient would prefer not to stay if she doesn't have to since she has a sole caregiver for her h usband but is willing to participate in whatever recommendations made by medicine. Initial ECG Impression Date: Sep 09, 2019 Initial ECG Impression Time: 21:46 Initial ECG Rate: 82 Initial ECG Rhythm: Normal Sinus Initial ECG Intervals: QT (477) Initial ECG Impression: Normal, Nonspecific Changes Initial ECG Comparisson: Unchanged Comment No clinically relevant ST elevation or depression. Borderline QTC prolongation. EKG : EKG Time: 23:57 Rate: 73 Rhythm: Normal Sinus Intervals: Normal ECG Comparisson: Unchanged ECG Impression: Normal Comment No clinically relevant ST elevation or depression. Normal sinus rhythm. Diagnostic Imaging Diagonstic Imaging: Xray Plain Films/CT/US/NM/MRI: chest (1v) Comments No acute cardiopulmonary process noted on one view chest x-ray. Reviewed: Reviewed by Me Consults : Consulting Physician: ZURI WISEMAN MD FACP FAC CCDS Consults Notes Discussed the case with Dr. Wiseman and in light of her previous cardiac catheterization he is okay with doing a 5 hour troponin rule out from time of onset of chest pain. Onset of pain was just before 1999. A 0 100 repeat delta troponin. Departure Impression Primary Impression: Chest pain Qualified Codes: R07.9 - Chest pain, unspecified Additional Impression: Paresthesia of left upper extremity Disposition: HOME, SELF-CARE Condition: Stable Departure-Patient Inst. Decision time for Depature: 01:29 Referrals: OBINNA HARDING MD (PCP/Family) Primary Care Physician Patient Instructions: Chest Pain That Is Not Caused by the Heart (DC) Add. Discharge Instructions: Keep your follow-up appointment on Wednesday with Dr. Wiseman. Return to the nearest ER if you begin to experience persistent chest pain, shortness of breath or other worrisome symptoms. All discharge instructions reviewed with patient and/or family. Voiced understanding. LAURENCE TILLMAN Sep 09, 2019 22:03
[2019-09-09 22:06] LABS: BASOPHILS # (AUTO) 0.1 10^3/uL (0.0-0.1); BASOPHILS % (AUTO) 1 % (0-10); EOSINOPHILS # (AUTO) 0.3 10^3/uL (0.0-0.3); EOSINOPHILS % (AUTO) 2 % (0-10); HEMATOCRIT 35 % (35-52); HEMOGLOBIN 10.4 G/DL (11.5-16.0); LYMPHOCYTES # (AUTO) 4.7 X 10^3 (1.0-4.0); LYMPHOCYTES % (AUTO) 31 % (12-44); MEAN CORPUSCULAR HEMOGLOBIN 23 PG (25-34); MEAN CORPUSCULAR HGB CONC 30 G/DL (32-36); MEAN CORPUSCULAR VOLUME 75 FL (80-99); MEAN PLATELET VOLUME 11.3 FL (7.4-10.4); MONOCYTES # (AUTO) 0.8 X 10^3 (0.0-1.0); MONOCYTES % (AUTO) 5 % (0-12); NEUTROPHILS # (AUTO) 9.3 X 10^3 (1.8-7.8); NEUTROPHILS % (AUTO) 61 % (42-75); PLATELET COUNT 439 10^3/uL (130-400); RED CELL DISTRIBUTION WIDTH 17.8 % (10.0-14.5); WHITE BLOOD COUNT 15.2 10^3/uL (4.3-11.0)
[2019-09-09 22:17] LABS: ALANINE AMINOTRANSFERASE 14 U/L (0-55); ALBUMIN 3.8 GM/DL (3.2-4.5); ALKALINE PHOSPHATASE 93 U/L (40-136); BILIRUBIN,TOTAL < 0.1 MG/DL (0.1-1.0); BUN/CREATININE RATIO 12; CALCIUM 8.7 MG/DL (8.5-10.1); CARBON DIOXIDE 21 MMOL/L (21-32); CHLORIDE 109 MMOL/L (98-107); CREATININE SERUM 0.95 MG/DL (0.60-1.30); GFR ESTIMATED > 60; GLUCOSE 160 MG/DL (70-105); LIPASE 14 U/L (8-78); MAGNESIUM 1.7 MG/DL (1.6-2.4); POTASSIUM 4.1 MMOL/L (3.6-5.0); SODIUM 141 MMOL/L (135-145)
[2019-09-09 22:22] LABS: FIBRIN DEGRADATION PRODUCTS 0.47 UG/ML (0.00-0.49); INR 0.9 (0.8-1.4); PROTHROMBIN TIME PATIENT 12.7 SEC (12.2-14.7)
[2019-09-09 22:38] LABS: ANISOCYTOSIS SLIGHT; BAND NEUTROPHILS 3 %; EOSINOPHILS % (MANUAL) 1 %; HYPOCHROMASIA SLIGHT; LYMPHOCYTES % (MANUAL) 33 %; MONOCYTES % (MANUAL) 5 %; NEUTROPHILS % (MANUAL) 58 %
[2019-09-10 01:39] VITALS: BP 108/56
--- NOTE | 2019-09-10 08:00 | Diagnostic Imaging Report ---
EXAMINATION: Chest 1 view HISTORY: Chest pain. COMPARISON: 03/26/2019 FINDINGS: The lung volumes are normal. No focal consolidation is seen. No large pleural effusion or pneumothorax is seen. The cardiomediastinal silhouette is normal in size and contour. No acute osseous abnormality is seen. IMPRESSION: 1. No acute pleuroparenchymal process. Dictated by: Dictated on workstation # [id number]
== END 2019-09-10 01:41 | disposition home or self-care (01) ==
LOC: EDUNIT# 21:41 → ER 21:42
DX: R07.89 Other chest pain (principal); R20.2 Paresthesia of skin; J44.9 Chronic obstructive pulmonary disease, unspecified; I10 Essential (primary) hypertension; E78.00 Pure hypercholesterolemia, unspecified; I48.91 Unspecified atrial fibrillation; E11.9 Type 2 diabetes mellitus without complications; K21.9 Gastro-esophageal reflux disease without esophagitis; F41.9 Anxiety disorder, unspecified; F32.9 Major depressive disorder, single episode, unspecified; G47.30 Sleep apnea, unspecified; F17.210 Nicotine dependence, cigarettes, uncomplicated; Z86.73 Personal history of transient ischemic attack (TIA), and cerebral infarction without residual deficits; Z99.89 Dependence on other enabling machines and devices; Z95.9 Presence of cardiac and vascular implant and graft, unspecified; Z88.0 Allergy status to penicillin; Z88.8 Allergy status to other drugs, medicaments and biological substances; Z79.01 Long term (current) use of anticoagulants; Z79.51 Long term (current) use of inhaled steroids; Z79.84 Long term (current) use of oral hypoglycemic drugs; Z91.19 Patient's noncompliance with other medical treatment and regimen
CPT/HCPCS: 36415; 71045; 80053; 83690; 83735; 83874; 83880; 84484; 85007; 85027; 85379; 85610; 85730; 93005; 93041

== ENCOUNTER 2019-09-12 07:55 | Day surgery (SDC) | payer MEDICARE, MEDICAID ==
[~2019-09-12] VITALS: Ht 165 cm; Wt 130.0 kg
[~2019-09-12 07:55] MED LIST changes: +LIDOCAINE 1% INJ 20 ML 20 ML VIAL ONE
[2019-09-12] MEDS ORDERED: LIDOCAINE 1% INJ 20 ML 20 ML VIAL INJ ONE (08:00)
[2019-09-12 08:05] VITALS: BP 146/62
--- NOTE | 2019-09-12 11:58 | OPERATIVE REPORT ---
DATE OF SERVICE: 09/12/2019 PREOPERATIVE DIAGNOSIS: Syncope. POSTOPERATIVE DIAGNOSIS: Syncope. PROCEDURE: Implantable loop recorder implantation. The patient is a 49-year-old lady who has had infrequent syncope. Implantable loop recorder was carried out after having obtained an informed consent. DESCRIPTION OF PROCEDURE: [facility] The left prepectoral area was prepared and draped in the usual sterile fashion. Lidocaine 1% for local anesthesia. We used the tools provided with the [employer] CareLink device to make a pocket anterior to the left intercostal space into which the device was placed. The device is [employer] Reveal LINQ with serial #[id number]. The edges were closed using Dermabond and Steri-Strips. The patient tolerated the procedure well. Job ID: [id number] DocumentID: [id number] Dictated Date: 09/12/2019 10:34:37 Assistant Head Cashier Date: 09/12/2019 11:58:07 Dictated By: ZURI DAVILA MD, MA, FACP, FACC,
== END 2019-09-12 09:40 | disposition home or self-care (01) ==
LOC: CATH 07:55
PROVIDERS: ATTEND Internal Medicine Cardiovascular Disease
DX: R55 Syncope and collapse (principal); R06.02 Shortness of breath; I48.0 Paroxysmal atrial fibrillation; G47.33 Obstructive sleep apnea (adult) (pediatric); G47.50 Parasomnia, unspecified; G43.909 Migraine, unspecified, not intractable, without status migrainosus; E11.9 Type 2 diabetes mellitus without complications; E66.01 Morbid (severe) obesity due to excess calories; F31.9 Bipolar disorder, unspecified; F43.21 Adjustment disorder with depressed mood; Z90.49 Acquired absence of other specified parts of digestive tract; Z98.51 Tubal ligation status; Z87.891 Personal history of nicotine dependence; Z88.0 Allergy status to penicillin; Z88.8 Allergy status to other drugs, medicaments and biological substances; Z99.89 Dependence on other enabling machines and devices; Z79.01 Long term (current) use of anticoagulants; Z79.84 Long term (current) use of oral hypoglycemic drugs; Z79.899 Other long term (current) drug therapy; Z68.42 Body mass index [BMI] 45.0-49.9, adult; Z80.0 Family history of malignant neoplasm of digestive organs; Z83.6 Family history of other diseases of the respiratory system; Z82.49 Family history of ischemic heart disease and other diseases of the circulatory system; Z82.3 Family history of stroke; Z82.61 Family history of arthritis
CPT/HCPCS: 33285

== ENCOUNTER → 2019-10-02 | Outpatient (CLI) | payer MEDICARE, MEDICAID ==
[~2019-10-02] MED LIST changes: +ACHYD1T PO; -HYDR-3812 PO; -HYDR-3820 PO; -LIDOCAINE 1% INJ 20 ML 20 ML VIAL ONE
--- NOTE | 2019-10-02 09:34 | Diagnostic Imaging Report ---
PROCEDURE: US Thyroid. TECHNIQUE: Multiple real-time grayscale images were obtained of the thyroid in various projections. INDICATION: Thyroid nodules. COMPARISON: May 27, 2018. FINDINGS: The right lobe of the thyroid gland is enlarged measuring 6.3 x 3.4 x 4.0 cm. Multiple nodules are again identified within the right thyroid lobe. These include round [id number] nodules that measure up to 2.6 cm. The two dominant nodules within the right thyroid lobe appear relatively similar dating back to 2016, suggesting a benign etiology. A complex cystic and solid nodule measuring 1.7 x 1.7 x 1.2 cm with posterior acoustic enhancement is noted within the anterior aspect of the right mid thyroid lobe, appearing slightly more prominent than the prior examinations. No new right thyroid nodules identified. The left lobe of the thyroid gland is mildly enlarged and heterogeneous measuring 5.7 x 1.7 x 2.0 cm. A 0.7 x 0.7 cm partially cystic nodule is again noted within the left thyroid lobe, stable from the prior examinations, and benign. No new left thyroid nodule. The isthmus is unremarkable. IMPRESSION: Enlarged thyroid gland with multiple stable nodules, as described above, felt to relate to multinodular goiter. One complex cystic and solid nodule within the anterior aspect of the right mid thyroid lobe does appear slightly increased in size since the prior examination. Given slight interval change, a follow-up ultrasound is recommended in 6 to 12 months. No new thyroid nodules. Dictated by: Dictated on workstation # [id number]
== END ==
LOC: RT 08:01
PROVIDERS: ATTEND Nurse Practitioner Family
DX: E04.2 Nontoxic multinodular goiter (principal)
CPT/HCPCS: 76536

== ENCOUNTER → 2019-10-02 | Outpatient (CLI) | payer MEDICARE, MEDICAID ==
--- NOTE | 2019-10-02 09:06 | NUR ---
Pt came for PFT; when pt performing test; she appeared that she could not give best effort possible. She stated that her head started hurting her during test; stated pain in head is a condition from other procedure, and that pain hits her at random times. She scored her pain in head as a 7 out of 10; I asked pt if she needed to go to E.R., she stated no, that she has her physician give her a shot for pain. She stated she could not finish test. She did perform Flow volume loop, but results varied from each other, she stated that she felt she was performing the best she could at this time. Pt could not finish test, she went home to rest and call her primary physician for follow up. Test results given to ordering physician with note. Pt stated she has appointment with neurologist on October 26, 2019.
== END ==
LOC: RT 08:07
PROVIDERS: ATTEND Nurse Practitioner Family
DX: J98.4 Other disorders of lung (principal); G47.33 Obstructive sleep apnea (adult) (pediatric); G47.50 Parasomnia, unspecified; S06.9X0A Unspecified intracranial injury without loss of consciousness, initial encounter; E66.01 Morbid (severe) obesity due to excess calories; Z72.0 Tobacco use
CPT/HCPCS: 94060

== ENCOUNTER 2019-11-14 09:30 | Outpatient (CLI) | payer MEDICARE, MEDICAID ==
[~2019-11-14] VITALS: Ht 165 cm; Wt 135.0 kg
[2019-11-14] MEDS ORDERED: PROM12.511 PO (09:37)
[2019-11-14] MEDS ORDERED: FAMO20TA3 PO (09:37)
[2019-11-14] MEDS ORDERED: HYDR-700 PO (09:37)
[2019-11-14] MEDS ORDERED: FLUO20CA42 PO (09:37)
== END 2019-11-14 12:25 | disposition home or self-care (01) ==
LOC: PREOP 09:30
PROVIDERS: ATTEND Surgery
DX: Z01.818 Encounter for other preprocedural examination (principal)

== ENCOUNTER → 2019-11-15 | Outpatient (CLI) | payer MEDICARE, MEDICAID ==
[~2019-11-15] MED LIST changes: +FAMO20TA3 PO; +FLUO20CA42 PO; +HYDR-700 PO; +PROM12.511 PO
--- NOTE | 2019-11-15 09:08 | Diagnostic Imaging Report ---
PROCEDURE: CT abdomen and pelvis without contrast. TECHNIQUE: Multiple contiguous axial images were obtained through the abdomen and pelvis without the use of intravenous contrast. Auto Exposure Controls were utilized during the CT exam to meet ALARA standards for radiation dose reduction. INDICATION: Periumbilical swelling increasing. COMPARISON: 05/07/2019. FINDINGS: The tiny fatty umbilical hernia with the hernial orifice at 7 mm and about a 1 cm fatty hernia sac is unchanged; however, superior and left of the umbilicus, there is a new abdominal wall defect with the hernial orifice of 6.6 cm through which a fatty hernia sac measures 12 cm maximally. There is no inflammatory change within the hernia sac. No other abdominal wall pathology. No herniation of viscus. There are nonobstructing bilateral renal calculi, unchanged, with some chronic cortical thinning and atrophy of the left kidney, nonobstructed and unchanged. The gallbladder is surgically absent. The liver shows mild fatty infiltration, chronic. The spleen is negative. The adrenals and pancreas are unremarkable. The aorta is nonaneurysmal. There is no appendicitis or diverticulitis. The uterus is absent or atrophic. There is no adnexal lesion. The bony structures appear nonacute. IMPRESSION: 1. New large left paramedian supraumbilical fatty abdominal wall hernia without fluid, inflammatory change, hemorrhage, or viscus protrusion. 2. Stable tiny subcentimeter umbilical fatty hernia. 3. Nonobstructing nephrolithiasis, chronic. Left renal cortical atrophy. Mild fatty infiltration of the liver. No acute appearing pathology. Dictated by: Dictated on workstation # [id number]
== END ==
LOC: RAD 08:12
PROVIDERS: ATTEND Surgery
DX: K43.9 Ventral hernia without obstruction or gangrene (principal); K42.9 Umbilical hernia without obstruction or gangrene; N20.0 Calculus of kidney; N26.1 Atrophy of kidney (terminal); K76.0 Fatty (change of) liver, not elsewhere classified
CPT/HCPCS: 74176

== ENCOUNTER 2019-11-20 17:13 | Emergency (ER) | payer MEDICARE, MEDICAID ==
[~2019-11-20] VITALS: Ht 165 cm; Wt 135.0 kg
--- NOTE | 2019-11-20 18:08 | ED Abdominal Pain ---
General Chief Complaint: Abdominal/GI Problems Stated Complaint: HERNIA PAIN Source of Information: Patient Exam Limitations: No Limitations History of Present Illness Date Seen by Provider: November 20, 2019 Time Seen by Provider: 18:05 Initial Comments 49-year-old female who presents to emergency room with increasing umbilical hernia pain. She has been evaluated by Dr. Plascencia for this umbilical hernia and reports that the pain became worse last night. She also reports that she has not had a bowel movement in 3 days with the use of stool softeners. She denies any nausea or vomiting, dysuria, diarrhea. She denies a sides of her hernia changing. She did have a CT scan last week of the hernia in preparation for a colonoscopy. Timing/Duration: 1-2 Days Location: Periumbilical Allergies and Home Medications Allergies Coded Allergies: estradiol (Unverified Allergy, Severe, RASH/TIA, 11/14/19) Penicillins (Unverified Allergy, Mild, Hives, 06/28/19) povidone-iodine (Unverified Allergy, Mild, Hives, 06/28/19) Home Medications Albuterol Sulfate 1 Puff Puff, 2 PUFF INH QID PRN for SHORTNESS OF BREATH, (Reported) Apixaban 5 Mg Tablet, 5 MG PO BID, (Reported) Atorvastatin Calcium 10 Mg Tablet, 10 MG PO HS, (Reported) Famotidine 20 Mg Tablet, 20 MG PO BID, (Reported) Fluoxetine HCl 20 Mg Capsule, 20 MG PO DAILY, (Reported) Fluticasone/Vilanterol 1 Each Blst.w.dev, 1 EACH IH DAILY, (Reported) Gabapentin 600 Mg Tablet, 1,200 MG PO TID, (Reported) TAKES 2 (600MG) TABLETS Hydroxyzine HCl 25 Mg Tablet, 25 MG PO Q8H, (Reported) Metformin HCl 1,000 Mg Tablet, 1,000 MG PO BID, (Reported) Omeprazole 40 Mg Capsule.dr, 40 MG PO DAILY, (Reported) Promethazine HCl 12.5 Mg Tablet, 25 MG PO Q6H, (Reported) Propranolol HCl 120 Mg Cap.sa.24h, 120 MG PO DAILY, (Reported) Tizanidine HCl 2 Mg Tablet, 6 MG PO HS, (Reported) Topiramate 50 Mg Tablet, 150 MG PO BID, (Reported) TAKES 3 (50MG) TABLETS Patient Home Medication List Home Medication List Reviewed: Yes Review of Systems Review of Systems Constitutional: see HPI; No chills, No fever Gastrointestinal: See HPI, Abdominal Pain, Other (mobile hernia pain) All Other Systems Reviewed Negative Unless Noted: Yes Past Tkrdpsb-Zckbye-Jiuoju Hx Patient Social History Type Used: Cigarettes Former Smoker, Quit: Sep 17, 2018 2nd Hand Smoke Exposure: Yes Recent Foreign Travel: No Contact w/Someone Who Travel: No Recent Hopitalizations: No Immunizations Up To Date PED Vaccines UTD: Yes Date of Pneumonia Vaccine: Apr 18, 2018 Date of Influenza Vaccine: Apr 24, 2019 Seasonal Allergies Seasonal Allergies: No Past Medical History Surgeries: Yes (heart cath- 2019 no stent placed, NICOLE KNEE SCOPES, R ARM-[place] PLACED) Cardiac, Gallbladder, 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, Oophorectomy, Orthopedic, 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 Respiratory: Yes Sleep Apnea, COPD Currently Using CPAP: Yes Currently Using BIPAP: No Cardiac: Yes (HEART CATH-NO STENTS, paroxysmal a-fib) Atrial Fibrillation, High Cholesterol, Hypertension Neurological: Yes Concussion, Headaches /Migraines, TIA, Traumatic Brain Injury Reproductive Disorders: No (1 OVARY REMOVED, TUBES TIED ) Female Reproductive Disorders: Denies 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 History: 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, 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 Sexually Transmitted Disease: No HIV/AIDS: No Genitourinary: Yes Kidney Stones Gastrointestinal: Yes Gastroesophageal Reflux, Chronic Diarrhea Musculoskeletal: Yes (BILAT KNEE SCOPES) Arthritis, Chronic Back Pain Endocrine: Yes (NON-COMPLIANT) Diabetes, Non-Insulin dep HEENT: Yes (GLASSES, MISSING SOME TEETH) Loss of Vision: Denies Cancer: No Psychosocial: Yes (EXTENSIVE PSYCH ISSUES) Anxiety, Depression Integumentary: Yes ("HAS SORES FROM RASH FROM ESTROGEN") Blood Disorders: Yes (ANEMIA) Adverse Reaction/Blood Tranf: No (N/A) Family Medical History Myocardial infarction GRANDMOTHER AUNT GRANDFATHER Seizure disorder Stroke 19 MOTHER GRANDMOTHER AUNT MATERNAL GRANDFATHER No Pertinent Family Hx Physical Exam Vital Signs Vital Signs - First Documented 11/20/19 17:32 Temp 36.5 Pulse 79 Resp 20 B/P (MAP) 117/63 (81) Pulse Ox 97 O2 Delivery Room Air Capillary Refill : Height/Weight/BMI Height: 5'0" Weight: 303lbs. 6.0oz. [id number]; 49.58 BMI Method:Stated General Appearance: WD/WN, no apparent distress, obese Respiratory: chest non-tender, lungs clear, normal breath sounds, no respiratory distress, no accessory muscle use Cardiovascular: normal peripheral pulses, regular rate, rhythm, no edema, no gallop, no JVD, no murmur Gastrointestinal: normal bowel sounds, soft, tenderness (periumbilical tenderness), hernia (umbilical hernia present) Extremities: normal capillary refill Neurologic/Psychiatric: alert, normal mood/affect, oriented x 3 Skin: normal color, warm/dry Progress/Results/Core Measures Results/Orders Lab Results Laboratory Tests Test 11/20/19 17:58 11/20/19 19:13 Range/Units White Blood Count 13.8 H 4.3-11.0 10^3/uL Red Blood Count 4.77 4.35-5.85 10^6/uL Hemoglobin 10.3 L 11.5-16.0 G/DL Hematocrit 34 L 35-52 % Mean Corpuscular Volume 71 L 80-99 FL Mean Corpuscular Hemoglobin 22 L 25-34 PG Mean Corpuscular Hemoglobin Concent 30 L 32-36 G/DL Red Cell Distribution Width 17.7 H 10.0-14.5 % Platelet Count 400 130-400 10^3/uL Mean Platelet Volume 11.5 H 7.4-10.4 FL Neutrophils (%) (Auto) 58 42-75 % Lymphocytes (%) (Auto) 32 12-44 % Monocytes (%) (Auto) 8 0-12 % Eosinophils (%) (Auto) 2 0-10 % Basophils (%) (Auto) 0 0-10 % Neutrophils # (Auto) 8.0 H 1.8-7.8 X 10^3 Lymphocytes # (Auto) 4.4 H 1.0-4.0 X 10^3 Monocytes # (Auto) 1.1 H 0.0-1.0 X 10^3 Eosinophils # (Auto) 0.3 0.0-0.3 10^3/uL Basophils # (Auto) 0.1 0.0-0.1 10^3/uL Sodium Level 137 135-145 MMOL/L Potassium Level 3.7 3.6-5.0 MMOL/L Chloride Level 108 H 98-107 MMOL/L Carbon Dioxide Level 18 L 21-32 MMOL/L Anion Gap 11 5-14 MMOL/L Blood Urea Nitrogen 14 7-18 MG/DL Creatinine 1.12 0.60-1.30 MG/DL Estimat Glomerular Filtration Rate 52 BUN/Creatinine Ratio 13 Glucose Level 163 H 70-105 MG/DL Calcium Level 8.4 L 8.5-10.1 MG/DL Corrected Calcium 8.6 8.5-10.1 MG/DL Total Bilirubin 0.2 0.1-1.0 MG/DL Aspartate Amino Transf (AST/SGOT) 16 5-34 U/L Alanine Aminotransferase (ALT/SGPT) 24 0-55 U/L Alkaline Phosphatase 87 40-136 U/L Total Protein 6.9 6.4-8.2 GM/DL Albumin 3.7 3.2-4.5 GM/DL Amylase Level 24 L 25-125 U/L Lipase 12 8-78 U/L Urine Color YELLOW Urine Clarity CLEAR Urine pH 6.0 5-9 Urine Specific [place] 1.010 L 1.016-1.022 Urine Protein NEGATIVE NEGATIVE Urine Glucose (UA) NEGATIVE NEGATIVE Urine Ketones NEGATIVE NEGATIVE Urine Nitrite NEGATIVE NEGATIVE Urine Bilirubin NEGATIVE NEGATIVE Urine Urobilinogen 0.2 < = 1.0 MG/DL Urine Leukocyte Esterase TRACE H NEGATIVE Urine RBC (Auto) NEGATIVE NEGATIVE Urine RBC 0-2 /HPF Urine WBC 5-10 H /HPF Urine Crystals PRESENT H /LPF Urine Amorphous Sediment RARE STACY URATES H /LPF Urine Bacteria TRACE /HPF Urine Casts NONE /LPF Urine Mucus NEGATIVE /LPF Urine Culture Indicated YES My Orders Orders - JUAN WHITLEY Comprehensive Metabolic Panel (11/20/19 17:38) Lipase (11/20/19 17:38) Amylase (11/20/19 17:38) Ua Culture If Indicated (11/20/19 17:38) Ed Iv/Invasive Line Start (11/20/19 17:38) Cbc With Automated Diff (11/20/19 17:38) Ct Abdomen/Pelvis W (11/20/19 18:01) Diphenhydramine Injection (Benadryl Inje (11/20/19 18:15) Iohexol Injection (Omnipaque 350 Mg/Ml 1 (11/20/19 18:15) Received Contrast (Hold Metformin- Contr (11/20/19 18:15) Ns (Ivpb) (Sodium Chloride 0.9% Ivpb Bag (11/20/19 18:15) Urine Culture (11/20/19 19:13) Medications Given in ED Current Medications Medications Dose Ordered Sig/Lisa Route Start Time Stop Time Status Last Admin Dose Admin Diphenhydramine HCl 25 mg ONCE ONCE IVP 11/20/19 18:15 11/20/19 18:16 DC 11/20/19 18:13 25 MG Iohexol 100 ml ONCE ONCE IV 11/20/19 18:15 11/20/19 18:16 DC 11/20/19 18:46 100 ML Sodium Chloride 100 ml ONCE ONCE IV 11/20/19 18:15 11/20/19 18:16 DC 11/20/19 18:46 100 ML Vital Signs/I&O 11/20/19 17:32 Temp 36.5 Pulse 79 Resp 20 B/P (MAP) 117/63 (81) Pulse Ox 97 O2 Delivery Room Air Progress Progress Note : Time: 19:23 Progress Note I have seen and evaluated the patient. I've informed her of her laboratory and imaging studies. She agrees with plan of care, plans for discharge, return precautions were given. Departure Impression Primary Impression: Umbilical hernia Disposition: 01 HOME, SELF-CARE Condition: Stable/Unchanged Departure-Patient Inst. Decision time for Depature: 19:22 Referrals: MELANI PLASCENCIA BETHANY N MD (PCP/Family) Primary Care Physician Patient Instructions: Umbilical Hernia, Adult Add. Discharge Instructions: Continue your home medications as previously prescribed. Be sure you're drinking plenty of fluids to stay hydrated. Call tomorrow to schedule appointment with Dr. Plascencia for further evaluation. Return back to the emergency room for worsening symptoms or concerns as needed. All discharge instructions reviewed with patient and/or family. Voiced understanding. JUAN WHITLEY November 20, 2019 18:08
[2019-11-20] MEDS ORDERED: HOLD METFORMIN - RECEIVED CONTRAST 20 ML VIAL IV SCH (18:15)
[2019-11-20] MEDS ORDERED: NS 100 ML (IVPB) BAG IV ONE (18:15)
[2019-11-20] MEDS ORDERED: IOHEXOL 350 MG/ML 100 ML (OMNIPAQUE 350) VIAL IV ONE (18:15)
[2019-11-20] MEDS ORDERED: diphenhydrAMINE 50 MG/ML INJ (BENADRYL) IVP ONE (18:15)
[2019-11-20 18:47] LABS: BASOPHILS # (AUTO) 0.1 10^3/uL (0.0-0.1); BASOPHILS % (AUTO) 0 % (0-10); EOSINOPHILS # (AUTO) 0.3 10^3/uL (0.0-0.3); EOSINOPHILS % (AUTO) 2 % (0-10); HEMATOCRIT 34 % (35-52); HEMOGLOBIN 10.3 G/DL (11.5-16.0); LYMPHOCYTES # (AUTO) 4.4 X 10^3 (1.0-4.0); LYMPHOCYTES % (AUTO) 32 % (12-44); MEAN CORPUSCULAR HEMOGLOBIN 22 PG (25-34); MEAN CORPUSCULAR HGB CONC 30 G/DL (32-36); MEAN CORPUSCULAR VOLUME 71 FL (80-99); MEAN PLATELET VOLUME 11.5 FL (7.4-10.4); MONOCYTES # (AUTO) 1.1 X 10^3 (0.0-1.0); MONOCYTES % (AUTO) 8 % (0-12); NEUTROPHILS % (AUTO) 58 % (42-75); PLATELET COUNT 400 10^3/uL (130-400); RED CELL DISTRIBUTION WIDTH 17.7 % (10.0-14.5); WHITE BLOOD COUNT 13.8 10^3/uL (4.3-11.0)
[2019-11-20 18:52] LABS: ALBUMIN 3.7 GM/DL (3.2-4.5); POTASSIUM 3.7 MMOL/L (3.6-5.0)
[2019-11-20 18:53] LABS: CALCIUM 8.4 MG/DL (8.5-10.1)
[2019-11-20 18:55] LABS: TOTAL PROTEIN 6.9 GM/DL (6.4-8.2)
[2019-11-20 18:56] LABS: BILIRUBIN,TOTAL 0.2 MG/DL (0.1-1.0)
[2019-11-20 18:58] LABS: CREATININE SERUM 1.12 MG/DL (0.60-1.30)
--- NOTE | 2019-11-20 19:02 | Diagnostic Imaging Report ---
PROCEDURE: CT abdomen and pelvis with contrast. TECHNIQUE: Multiple contiguous axial images were obtained through the abdomen and pelvis after administration of intravenous contrast. Auto Exposure Controls were utilized during the CT exam to meet ALARA standards for radiation dose reduction. INDICATION: Right upper quadrant pain, gastrointestinal bleeding. FINDINGS: The lung bases are clear. There is fatty infiltration of the liver. The gallbladder is surgically absent. The portal vein is patent. The common duct is not dilated. The pancreas appears normal. The spleen is not enlarged. Adrenals appear normal. There is some atrophy of the left kidney. There are small calculi in both kidneys. There is no hydronephrosis. There is a supraumbilical ventral hernia. The hernia defect measures 6.8 cm in diameter and the hernia sac measures 11.5 cm in diameter and contains omentum and/or mesenteric fat. Small bowel is not dilated. The colon appears normal. The appendix is normal. Uterus is surgically absent. There is no intraperitoneal free air or free fluid. Urinary bladder is normal. IMPRESSION: Bilateral nephrolithiasis. There is scarring in the left kidney. The uterus and gallbladder are both surgically absent. No acute abnormality is seen. Dictated by: Dictated on workstation # [id number]
[2019-11-20 19:21] LABS: BILIRUBIN,URINE NEGATIVE (NEGATIVE); CLARITY,URINE CLEAR; COLOR,URINE YELLOW; GLUCOSE, URINE (UA) NEGATIVE (NEGATIVE); KETONES,URINE NEGATIVE (NEGATIVE); LEUKOCYTE ESTERASE ,URINE TRACE (NEGATIVE); NITRITE,URINE NEGATIVE (NEGATIVE); PROTEIN,URINE NEGATIVE (NEGATIVE)
[2019-11-20 19:46] LABS: AMORPHOUS SEDIMENT,UR RARE AMOR URATES /LPF; BACTERIA,URINE TRACE /HPF; RBC,URINE 0-2 /HPF
[2019-11-20 20:05] VITALS: BP 112/70
== END 2019-11-20 20:08 | disposition home or self-care (01) ==
LOC: EDUNIT# 17:13 → ER 17:14
DX: K42.9 Umbilical hernia without obstruction or gangrene (principal); I48.91 Unspecified atrial fibrillation; E78.00 Pure hypercholesterolemia, unspecified; I10 Essential (primary) hypertension; G43.909 Migraine, unspecified, not intractable, without status migrainosus; N20.0 Calculus of kidney; K21.9 Gastro-esophageal reflux disease without esophagitis; K52.9 Noninfective gastroenteritis and colitis, unspecified; E11.9 Type 2 diabetes mellitus without complications; Z91.19 Patient's noncompliance with other medical treatment and regimen; F41.9 Anxiety disorder, unspecified; F32.9 Major depressive disorder, single episode, unspecified; Z88.0 Allergy status to penicillin; Z87.820 Personal history of traumatic brain injury; Z79.899 Other long term (current) drug therapy; Z79.84 Long term (current) use of oral hypoglycemic drugs; Z86.73 Personal history of transient ischemic attack (TIA), and cerebral infarction without residual deficits
CPT/HCPCS: 36415; 74177; 80053; 81000; 82150; 83690; 85025; 87088

== ENCOUNTER → 2019-12-28 | Outpatient (CLI) | payer MEDICARE, MEDICAID ==
[~2019-12-28] MED LIST changes: -TIZA2TAB4 PO; +TIZA2TAB7 PO
--- NOTE | 2019-12-28 18:26 | Diagnostic Imaging Report ---
INDICATION: Leg pain Noninvasive study performed. Ankle-brachial indices were performed with ankle-brachial index of 1.12 on the right side and 1.07 on the left side. There is some mild dampening of the waveforms in the right side distally. IMPRESSION: Normal ankle-brachial indices although there is some mild dampening of the waveforms on the right side which could be technical. Dictated by: Dictated on workstation # [id number]
== END ==
LOC: RAD 14:03
PROVIDERS: ATTEND Family Medicine
DX: G62.9 Polyneuropathy, unspecified (principal); R09.89 Other specified symptoms and signs involving the circulatory and respiratory systems; M79.606 Pain in leg, unspecified
CPT/HCPCS: 93922

== ENCOUNTER 2020-02-03 14:41 | Emergency (ER) | payer MEDICARE, MEDICAID ==
[~2020-02-03] VITALS: Ht 165 cm; Wt 135.0 kg
--- NOTE | 2020-02-03 15:10 | ED Lower Extremity ---
General Chief Complaint: Lower Extremity Stated Complaint: BILAT LEG SWELLING / PAIN Nursing Triage Note: Pt reports several weeks ago it felt as if legs went numb, then legs began swelling. Pt reports swelling was up to knees since Wednesday. Pt reports the pain then began moving up. Pt reports calling Dr. Parrish on Wednesday and was told to come to ED. Pt also reports having difficulty urinating, and having to "force urine out." Pt describes pain as, "not sharp, long pain from foot straight up." Pt also concerned about beeing on 800 wilbert/day diet and not losing weight. Nursing Sepsis Screen: No Definite Risk Source: patient Exam Limitations: no limitations History of Present Illness Date Seen by Provider: Feb 03, 2020 Time Seen by Provider: 14:50 Initial Comments The patient presents ER by private conveyance with chief complaint the past week progressively worsening pain in both legs that is not sharp but about 8 out of 10 and worse as the day goes by her swelling gets worse. She has a history of stroke and follows with Dr. Parrish and Dr. Wiseman. She was told by Dr. Wiseman to wear compression stockings for her swelling and pain. She has not picked him up yet. She was told not to take diuretics. She has taken Tylenol several times in the last several days without relief of pain. She does not have any fever chills cough shortness of breath. She's also noticed the last 3 or 4 days she's had some urgency to try and go the bathroom and have to push hard to get her urine to come out. She denies hematuria or dysuria. She is diabetic and thinks her last A1c was somewhere around 8 or 9 area and she does not check her blood sugars routinely. She takes metformin but does not take insulin. Pain started in her feet and has progressively made its way up to her knees. Allergies and Home Medications Allergies Coded Allergies: estradiol (Unverified Allergy, Severe, RASH/TIA, 11/14/19) Penicillins (Unverified Allergy, Mild, Hives, 06/28/19) povidone-iodine (Unverified Allergy, Mild, Hives, 06/28/19) Home Medications Albuterol Sulfate 1 Puff Puff, 2 PUFF INH QID PRN for SHORTNESS OF BREATH, (Reported) Apixaban 5 Mg Tablet, 5 MG PO BID, (Reported) Atorvastatin Calcium 10 Mg Tablet, 10 MG PO HS, (Reported) Famotidine 20 Mg Tablet, 20 MG PO BID, (Reported) Fluoxetine HCl 20 Mg Capsule, 20 MG PO DAILY, (Reported) Fluticasone/Vilanterol 1 Each Blst.w.dev, 1 EACH IH DAILY, (Reported) Gabapentin 600 Mg Tablet, 1,200 MG PO TID, (Reported) TAKES 2 (600MG) TABLETS Hydroxyzine HCl 25 Mg Tablet, 25 MG PO Q8H, (Reported) Metformin HCl 1,000 Mg Tablet, 1,000 MG PO BID, (Reported) Omeprazole 40 Mg Capsule.dr, 40 MG PO DAILY, (Reported) Promethazine HCl 12.5 Mg Tablet, 25 MG PO Q6H, (Reported) Propranolol HCl 120 Mg Cap.sa.24h, 120 MG PO DAILY, (Reported) Tizanidine HCl 2 Mg Tablet, 6 MG PO HS, (Reported) Topiramate 50 Mg Tablet, 150 MG PO BID, (Reported) TAKES 3 (50MG) TABLETS Patient Home Medication List Home Medication List Reviewed: Yes Review of Systems Constitutional: No chills, No diaphoresis EENTM: No ear discharge, No hearing loss Respiratory: No cough, No short of breath Cardiovascular: No chest pain, No edema Gastrointestinal: No abdominal pain, No nausea, No vomiting Genitourinary: No discharge, No dysuria : No Musculoskeletal: see HPI; No back pain All Other Systems Reviewed Negative Unless Noted: Yes Past Zxbikco-Qogtzl-Pnmzmc Hx Patient Social History Alcohol Use: Denies Use Recreational Drug Use: No Smoking Status: Current Everyday Smoker Type Used: Cigarettes Former Smoker, Quit: Sep 17, 2018 2nd Hand Smoke Exposure: Yes Recent Foreign Travel: No Contact w/Someone Who Travel: No Recent Infectious Disease Expo: No Recent Hopitalizations: No Immunizations Up To Date PED Vaccines UTD: Yes Date of Pneumonia Vaccine: Apr 18, 2018 Date of Influenza Vaccine: Apr 24, 2019 Seasonal Allergies Seasonal Allergies: No Past Medical History Surgeries: Yes (heart cath- 2019 no stent placed, NICOLE KNEE SCOPES, R ARM-[place] PLACED) Cardiac, Gallbladder, 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, Oophorectomy, Orthopedic, 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 Respiratory: Yes Sleep Apnea, COPD Currently Using CPAP: Yes Currently Using BIPAP: No Cardiac: Yes (HEART CATH-NO STENTS, paroxysmal a-fib) Atrial Fibrillation, High Cholesterol, Hypertension Neurological: Yes (botox for migraines 11/20/19) Concussion, Headaches /Migraines, TIA, Traumatic Brain Injury Reproductive Disorders: No (1 OVARY REMOVED, TUBES TIED ) Female Reproductive Disorders: Denies SAUSAGE TIER History: 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, 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 Sexually Transmitted Disease: No HIV/AIDS: No Genitourinary: Yes Kidney Stones Gastrointestinal: Yes Gastroesophageal Reflux, Chronic Diarrhea Musculoskeletal: Yes (BILAT KNEE SCOPES) Arthritis, Chronic Back Pain Endocrine: Yes (NON-COMPLIANT) Diabetes, Non-Insulin dep HEENT: Yes (GLASSES, MISSING SOME TEETH) Loss of Vision: Denies Cancer: No Psychosocial: Yes (EXTENSIVE PSYCH ISSUES) Anxiety, Depression Integumentary: Yes ("HAS SORES FROM RASH FROM ESTROGEN") Blood Disorders: Yes (ANEMIA) Adverse Reaction/Blood Tranf: No (N/A) Family Medical History Myocardial infarction GRANDMOTHER AUNT GRANDFATHER Seizure disorder Stroke 19 MOTHER GRANDMOTHER AUNT MATERNAL GRANDFATHER No Pertinent Family Hx Physical Exam Vital Signs Vital Signs - First Documented 02/03/20 14:44 Temp 36.8 Pulse 83 Resp 22 B/P (MAP) 122/67 (85) Pulse Ox 96 O2 Delivery Room Air Capillary Refill : Less Than 3 Seconds Height, Weight, BMI Height: 5'0" Weight: 303lbs. 6.0oz. 137.690649im; 49.00 BMI Method:Stated General Appearance: WD/WN, no apparent distress HEENT: PERRL/EOMI, pharynx normal Neck: full range of motion, supple, normal inspection Cardiovascular: normal peripheral pulses, regular rate, rhythm, no edema Respiratory: lungs clear, normal breath sounds, no respiratory distress, no accessory muscle use Gastrointestinal: normal bowel sounds, non tender, soft Legs: bilateral leg non-tender, bilateral leg normal inspection, bilateral leg normal range of motion, bilateral leg no evidence of injury Knees: bilateral knee non-tender, bilateral knee normal inspection, bilateral knee normal range of motion Ankles: bilateral ankle non-tender, bilateral ankle normal inspection, bilateral ankle normal range of motion, bilateral ankle no evidence of injury Feet: bilateral foot non-tender, bilateral foot normal inspection, bilateral foot normal range of motion, bilateral foot no evidence of injury Neurologic/Tendon: normal sensation, normal motor functions, normal tendon functions, responds to pain, no evidence tendon injury Neurologic/Psychiatric: alert, normal mood/affect, oriented x 3 Skin: normal color, warm/dry Progress/Results/Core Measures Results/Orders Lab Results Laboratory Tests Test 02/03/20 15:05 02/03/20 15:47 Range/Units White Blood Count 13.6 H 4.3-11.0 10^3/uL Red Blood Count 5.36 4.35-5.85 10^6/uL Hemoglobin 11.2 L 11.5-16.0 G/DL Hematocrit 36 35-52 % Mean Corpuscular Volume 67 L 80-99 FL Mean Corpuscular Hemoglobin 21 L 25-34 PG Mean Corpuscular Hemoglobin Concent 31 L 32-36 G/DL Red Cell Distribution Width 19.8 H 10.0-14.5 % Platelet Count 411 H 130-400 10^3/uL Mean Platelet Volume 11.2 H 7.4-10.4 FL Neutrophils (%) (Auto) 66 42-75 % Lymphocytes (%) (Auto) 26 12-44 % Monocytes (%) (Auto) 6 0-12 % Eosinophils (%) (Auto) 2 0-10 % Basophils (%) (Auto) 0 0-10 % Neutrophils # (Auto) 8.9 H 1.8-7.8 X 10^3 Lymphocytes # (Auto) 3.5 1.0-4.0 X 10^3 Monocytes # (Auto) 0.8 0.0-1.0 X 10^3 Eosinophils # (Auto) 0.3 0.0-0.3 10^3/uL Basophils # (Auto) 0.1 0.0-0.1 10^3/uL Sodium Level 139 135-145 MMOL/L Potassium Level 4.2 3.6-5.0 MMOL/L Chloride Level 108 H 98-107 MMOL/L Carbon Dioxide Level 16 L 21-32 MMOL/L Anion Gap 15 H 5-14 MMOL/L Blood Urea Nitrogen 13 7-18 MG/DL Creatinine 1.10 0.60-1.30 MG/DL Estimat Glomerular Filtration Rate 53 BUN/Creatinine Ratio 12 Glucose Level 161 H 70-105 MG/DL Calcium Level 9.0 8.5-10.1 MG/DL Corrected Calcium 9.2 8.5-10.1 MG/DL Total Bilirubin 0.2 0.1-1.0 MG/DL Aspartate Amino Transf (AST/SGOT) 18 5-34 U/L Alanine Aminotransferase (ALT/SGPT) 24 0-55 U/L Alkaline Phosphatase 101 40-136 U/L B-Type Natriuretic Peptide 19.7 <100.0 PG/ML Total Protein 7.5 6.4-8.2 GM/DL Albumin 3.8 3.2-4.5 GM/DL Urine Color YELLOW Urine Clarity CLEAR Urine pH 6.0 5-9 Urine Specific [place] 1.015 L 1.016-1.022 Urine Protein NEGATIVE NEGATIVE Urine Glucose (UA) NEGATIVE NEGATIVE Urine Ketones NEGATIVE NEGATIVE Urine Nitrite NEGATIVE NEGATIVE Urine Bilirubin NEGATIVE NEGATIVE Urine Urobilinogen 0.2 < = 1.0 MG/DL Urine Leukocyte Esterase TRACE H NEGATIVE Urine RBC (Auto) NEGATIVE NEGATIVE Urine RBC 0-2 /HPF Urine WBC 10-25 H /HPF Urine Squamous Epithelial Cells 10-25 H /HPF Urine Crystals NONE /LPF Urine Bacteria TRACE /HPF Urine Casts NONE /LPF Urine Mucus NEGATIVE /LPF Urine Culture Indicated YES My Orders Orders - LAURENCE TILLMAN Ua Culture If Indicated (02/03/20 15:01) Cbc With Automated Diff (02/03/20 15:01) Comprehensive Metabolic Panel (02/03/20 15:01) BNP (02/03/20 15:01) Urine Culture (02/03/20 15:47) Vital Signs/I&O 02/03/20 14:44 Temp 36.8 Pulse 83 Resp 22 B/P (MAP) 122/67 (85) Pulse Ox 96 O2 Delivery Room Air Blood Pressure Mean: 85 Progress Progress Note #1: Time: 14:50 Progress Note Peripheral neuropathy-type pain. She does not have any significant swelling but we agree with the possibility of her pain getting worse in the afternoon due to gravity dependent edema. We have encouraged her to get the stockings. We see that she was at least one time on gabapentin 1200 mg 3 times a day a fairly significant dose. She could be having symptoms of cystitis versus urethritis versus neurogenic bladder. Sugars are out of control this could also be causing her to diurese. Plan to get some labs to check her kidney function, blood sugar, signs of infection etc. Plan to obtain urinalysis for culture as necessary. We discussed pain management with the patient and she did not know what her medications were you're going to review her prior medicine requisition's and her labs before recommending something for her pain and she is okay with this. She uses [facility] [address] which is now presently closed. Progress Note #2: Time: 16:32 Progress Note Urinalysis looks like contamination however she's having some urinary symptoms so we'll put her on some Macrobid and have her follow up outpatient for her peripheral neuropathy. Encourage her to get compression stockings. Departure Impression Primary Impression: Peripheral neuropathy Qualified Codes: G62.9 - Polyneuropathy, unspecified Additional Impression: Acute cystitis Qualified Codes: N30.00 - Acute cystitis without hematuria Disposition: HOME, SELF-CARE Condition: Stable Departure-Patient Inst. Decision time for Depature: 16:33 Referrals: OBINNA PARRISH MD (PCP/Family) Primary Care Physician Patient Instructions: Peripheral Neuropathy (DC), Urinary Tract Infection, Adult (DC) Add. Discharge Instructions: Drink plenty fluids. Macrobid one tablet twice a day for the next 7 days. Follow-up with her primary care doctor discussed medications for your peripheral neuropathy. Obtain and wear compression stockings as ordered. All discharge instructions reviewed with patient and/or family. Voiced understanding. Scripts Nitrofurantoin Monohyd/M-Cryst (Macrobid 100 mg Capsule) 100 Mg Capsule 1 TAB PO BID for 7 Days, #14 CAP 0 Refills Prov: LAURENCE TILLMAN 02/03/20 LAURENCE TILLMAN Feb 03, 2020 15:10
[2020-02-03 15:23] LABS: BASOPHILS # (AUTO) 0.1 10^3/uL (0.0-0.1); BASOPHILS % (AUTO) 0 % (0-10); EOSINOPHILS # (AUTO) 0.3 10^3/uL (0.0-0.3); EOSINOPHILS % (AUTO) 2 % (0-10); HEMATOCRIT 36 % (35-52); HEMOGLOBIN 11.2 G/DL (11.5-16.0); LYMPHOCYTES # (AUTO) 3.5 X 10^3 (1.0-4.0); LYMPHOCYTES % (AUTO) 26 % (12-44); MEAN CORPUSCULAR HEMOGLOBIN 21 PG (25-34); MEAN CORPUSCULAR HGB CONC 31 G/DL (32-36); MEAN CORPUSCULAR VOLUME 67 FL (80-99); MEAN PLATELET VOLUME 11.2 FL (7.4-10.4); MONOCYTES # (AUTO) 0.8 X 10^3 (0.0-1.0); MONOCYTES % (AUTO) 6 % (0-12); NEUTROPHILS # (AUTO) 8.9 X 10^3 (1.8-7.8); NEUTROPHILS % (AUTO) 66 % (42-75); PLATELET COUNT 411 10^3/uL (130-400); RED CELL DISTRIBUTION WIDTH 19.8 % (10.0-14.5); WHITE BLOOD COUNT 13.6 10^3/uL (4.3-11.0)
[2020-02-03 15:30] LABS: ALBUMIN 3.8 GM/DL (3.2-4.5)
[2020-02-03 15:31] LABS: POTASSIUM 4.2 MMOL/L (3.6-5.0)
[2020-02-03 15:33] LABS: TOTAL PROTEIN 7.5 GM/DL (6.4-8.2)
[2020-02-03 15:35] LABS: BILIRUBIN,TOTAL 0.2 MG/DL (0.1-1.0)
[2020-02-03 15:37] LABS: CREATININE SERUM 1.1 MG/DL (0.60-1.30)
[2020-02-03 15:56] LABS: BILIRUBIN,URINE NEGATIVE (NEGATIVE); CLARITY,URINE CLEAR; COLOR,URINE YELLOW; GLUCOSE, URINE (UA) NEGATIVE (NEGATIVE); KETONES,URINE NEGATIVE (NEGATIVE); LEUKOCYTE ESTERASE ,URINE TRACE (NEGATIVE); NITRITE,URINE NEGATIVE (NEGATIVE); PROTEIN,URINE NEGATIVE (NEGATIVE)
[2020-02-03 16:05] LABS: BACTERIA,URINE TRACE /HPF; RBC,URINE 0-2 /HPF
[2020-02-03] MEDS ORDERED: NITR-65 PO (16:38)
[2020-02-03 16:43] VITALS: BP 124/69
== END 2020-02-03 16:43 | disposition home or self-care (01) ==
LOC: EDUNIT# 14:41 → ER 14:42
DX: G62.9 Polyneuropathy, unspecified (principal); N30.00 Acute cystitis without hematuria; E11.9 Type 2 diabetes mellitus without complications; J44.9 Chronic obstructive pulmonary disease, unspecified; I10 Essential (primary) hypertension; I48.91 Unspecified atrial fibrillation; E78.00 Pure hypercholesterolemia, unspecified; G43.909 Migraine, unspecified, not intractable, without status migrainosus; K21.9 Gastro-esophageal reflux disease without esophagitis; F41.9 Anxiety disorder, unspecified; F32.9 Major depressive disorder, single episode, unspecified; F17.210 Nicotine dependence, cigarettes, uncomplicated; Z79.84 Long term (current) use of oral hypoglycemic drugs; Z88.0 Allergy status to penicillin; Z86.73 Personal history of transient ischemic attack (TIA), and cerebral infarction without residual deficits; Z88.8 Allergy status to other drugs, medicaments and biological substances; Z79.01 Long term (current) use of anticoagulants; Z91.19 Patient's noncompliance with other medical treatment and regimen; Z79.51 Long term (current) use of inhaled steroids; Z82.49 Family history of ischemic heart disease and other diseases of the circulatory system
CPT/HCPCS: 36415; 80053; 81000; 83880; 85025; 87077; 87088

== ENCOUNTER 2020-03-26 14:19 | Outpatient (RCR) | payer MEDICARE, MEDICAID ==
[2020-01-23 13:56] LABS: BASOPHILS # (AUTO) 0.1 10^3/uL (0.0-0.1); BASOPHILS % (AUTO) 1 % (0-10); EOSINOPHILS # (AUTO) 0.2 10^3/uL (0.0-0.3); EOSINOPHILS % (AUTO) 2 % (0-10); HEMATOCRIT 35 % (35-52); LYMPHOCYTES # (AUTO) 3.3 X 10^3 (1.0-4.0); LYMPHOCYTES % (AUTO) 30 % (12-44); MEAN CORPUSCULAR HEMOGLOBIN 21 PG (25-34); MEAN CORPUSCULAR HGB CONC 31 G/DL (32-36); MEAN CORPUSCULAR VOLUME 67 FL (80-99); MEAN PLATELET VOLUME 10.8 FL (7.4-10.4); MONOCYTES # (AUTO) 0.8 X 10^3 (0.0-1.0); MONOCYTES % (AUTO) 8 % (0-12); NEUTROPHILS # (AUTO) 6.7 X 10^3 (1.8-7.8); NEUTROPHILS % (AUTO) 60 % (42-75); PLATELET COUNT 408 10^3/uL (130-400); WHITE BLOOD COUNT 11.1 10^3/uL (4.3-11.0)
[2020-01-23 14:15] LABS: ALBUMIN 3.9 GM/DL (3.2-4.5); BILIRUBIN,TOTAL 0.2 MG/DL (0.1-1.0); CALCIUM 8.9 MG/DL (8.5-10.1); CREATININE SERUM 1.01 MG/DL (0.60-1.30); POTASSIUM 3.8 MMOL/L (3.6-5.0); TOTAL PROTEIN 7.6 GM/DL (6.4-8.2)
[~2020-03-26 14:19] MED LIST changes: +ALPR.25T PO; -ALPR0.254 PO; +ASPI-1238 PO; -ASPI-983 PO; -OXYC-465 PO; +OXYC-556 PO
[2020-03-26 14:36] LABS: BASOPHILS # (AUTO) 0.1 10^3/uL (0.0-0.1); BASOPHILS % (AUTO) 1 % (0-10); EOSINOPHILS # (AUTO) 0.3 10^3/uL (0.0-0.3); EOSINOPHILS % (AUTO) 3 % (0-10); HEMATOCRIT 37 % (35-52); HEMOGLOBIN 11.4 G/DL (11.5-16.0); LYMPHOCYTES # (AUTO) 3.9 X 10^3 (1.0-4.0); LYMPHOCYTES % (AUTO) 32 % (12-44); MEAN CORPUSCULAR HEMOGLOBIN 21 PG (25-34); MEAN CORPUSCULAR HGB CONC 31 G/DL (32-36); MEAN CORPUSCULAR VOLUME 68 FL (80-99); MEAN PLATELET VOLUME 10.9 FL (7.4-10.4); MONOCYTES # (AUTO) 0.9 X 10^3 (0.0-1.0); MONOCYTES % (AUTO) 8 % (0-12); NEUTROPHILS # (AUTO) 7.1 X 10^3 (1.8-7.8); NEUTROPHILS % (AUTO) 58 % (42-75); PLATELET COUNT 417 10^3/uL (130-400); WHITE BLOOD COUNT 12.4 10^3/uL (4.3-11.0)
[2020-03-26 15:02] LABS: BILIRUBIN,TOTAL 0.2 MG/DL (0.1-1.0); CALCIUM 9.3 MG/DL (8.5-10.1); POTASSIUM 4.2 MMOL/L (3.6-5.0); TOTAL PROTEIN 7.6 GM/DL (6.4-8.2)
== END 2020-04-22 | disposition home or self-care (01) ==
LOC: ONC 14:19
PROVIDERS: ATTEND Internal Medicine Hematology & Oncology
DX: D50.0 Iron deficiency anemia secondary to blood loss (chronic) (principal); K29.31 Chronic superficial gastritis with bleeding; E66.01 Morbid (severe) obesity due to excess calories; K44.9 Diaphragmatic hernia without obstruction or gangrene; Z86.73 Personal history of transient ischemic attack (TIA), and cerebral infarction without residual deficits; Z98.51 Tubal ligation status; Z90.721 Acquired absence of ovaries, unilateral; Z90.49 Acquired absence of other specified parts of digestive tract; Z98.890 Other specified postprocedural states; Z95.5 Presence of coronary angioplasty implant and graft; Z68.42 Body mass index [BMI] 45.0-49.9, adult
CPT/HCPCS: 80053; 82728; 83540; 85025; G0463; 99213; 99214

== ENCOUNTER → 2020-04-02 | Outpatient (CLI) | payer MEDICARE, MEDICAID ==
[~2020-04-02] MED LIST changes: -ALPR.25T PO; +ALPR0.254 PO
--- NOTE | 2020-04-02 15:31 | Diagnostic Imaging Report ---
PROCEDURE: US Thyroid. TECHNIQUE: Multiple Real-time grayscale images were obtained of the thyroid in various projections. INDICATION: Multinodular goiter. COMPARISON: 10/02/2019. FINDINGS: The right lobe of the thyroid measures 6.7 x 3.6 x 3.1 cm and the left lobe measures 5.4 x 1.9 x 1.8 cm. Circumscribed hypoechoic masses within both lobes of the thyroid are again noted. A nodule in the upper pole of the right lobe measures 2.1 x 1.7 x 2.0 cm compared with 1.9 x 1.7 x 1.7 cm on the prior exam. A nodule in the mid aspect of the right lobe measures 1.6 x 1.3 x 1.8 cm compared with 1.7 x 1.2 x 1.7 cm. A dominant lesion in the lower pole measures 2.8 x 2.0 x 2.2 cm compared with 2.6 x 2.1 x 2.3 cm. A small nodule in the upper pole of the left lobe measures approximately 0.9 x 0.7 x 1.0 cm compared with 0.7 x 0.7 x 0.7 cm. There are two additional nodules in the left lobe not visualized on the prior exam with the largest approximately 1.1 cm and the second one approximately 0.7 cm. IMPRESSION: Multinodular thyroid, consistent with a multinodular goiter. Most nodules are very similar to perhaps minimally increased in size when compared with the prior exam. There appear to be two new nodules in the mid and lower pole of the left lobe, as described. Continued followup is recommended. Dictated by: Dictated on workstation # [id number]
== END ==
LOC: RAD 13:15
PROVIDERS: ATTEND Family Medicine
DX: E04.2 Nontoxic multinodular goiter (principal)
CPT/HCPCS: 76536

== ENCOUNTER 2020-06-06 17:39 | Emergency (ER) | payer MEDICARE, MEDICAID ==
[~2020-06-06] VITALS: Ht 165.1 cm; Wt 131.0 kg
[~2020-06-06 17:39] MED LIST changes: +ALPR.25T PO; -ALPR0.254 PO
[2020-06-06] MEDS ORDERED: fentaNYL INJECTION 100 MCG/2 ML AMP IVP ONE (18:00)
--- NOTE | 2020-06-06 18:00 | ED Abdominal Pain ---
General Stated Complaint: ABD PAIN;ABD SWELLING Source of Information: Patient Exam Limitations: No Limitations History of Present Illness Date Seen by Provider: Jun 06, 2020 Time Seen by Provider: 17:58 Initial Comments To ER from home with reports of diffuse abdominal pain which she relates to her "hiatal hernia". She states this became worse than usual about 3 PM today. States that she Dr. Mayo but was told she needed to lose about 20 pounds before having surgery. States that she is unable to lose 20 pounds because "food is my comfort". Timing/Duration: 4-6 Hours Severity/Quality: Moderate Location: Generalized Abdomen Radiation: No Radiation Activities at Onset: None Associated Symptoms: Denies Symptoms Allergies and Home Medications Allergies Coded Allergies: estradiol (Unverified Allergy, Severe, RASH/TIA, 11/14/19) Penicillins (Unverified Allergy, Mild, Hives, 06/28/19) povidone-iodine (Unverified Allergy, Mild, Hives, 06/28/19) Home Medications Albuterol Sulfate 1 Puff Puff, 2 PUFF INH QID PRN for SHORTNESS OF BREATH, (Reported) Apixaban 5 Mg Tablet, 5 MG PO BID, (Reported) Atorvastatin Calcium 10 Mg Tablet, 10 MG PO HS, (Reported) Famotidine 20 Mg Tablet, 20 MG PO BID, (Reported) Fluoxetine HCl 20 Mg Capsule, 20 MG PO DAILY, (Reported) Fluticasone/Vilanterol 1 Each Blst.w.dev, 1 EACH IH DAILY, (Reported) Gabapentin 600 Mg Tablet, 1,200 MG PO TID, (Reported) TAKES 2 (600MG) TABLETS Hydroxyzine HCl 25 Mg Tablet, 25 MG PO Q8H, (Reported) Metformin HCl 1,000 Mg Tablet, 1,000 MG PO BID, (Reported) Nitrofurantoin Monohyd/M-Cryst 100 Mg Capsule, 1 TAB PO BID Prescribed by: LAURENCE TILLMAN on 02/03/20 1638 Omeprazole 40 Mg Capsule.dr, 40 MG PO DAILY, (Reported) Promethazine HCl 12.5 Mg Tablet, 25 MG PO Q6H, (Reported) Propranolol HCl 120 Mg Cap.sa.24h, 120 MG PO DAILY, (Reported) Tizanidine HCl 2 Mg Tablet, 6 MG PO HS, (Reported) Topiramate 50 Mg Tablet, 150 MG PO BID, (Reported) TAKES 3 (50MG) TABLETS Patient Home Medication List Home Medication List Reviewed: Yes Review of Systems Review of Systems Constitutional: see HPI EENTM: No Symptoms Reported Respiratory: No Symptoms Reported Cardiovascular: No Symptoms Reported Gastrointestinal: See HPI Genitourinary: No Symptoms Reported Musculoskeletal: no symptoms reported Psychiatric/Neurological: No Symptoms Reported Endocrine: No Symptoms Reported Hematologic/Lymphatic: No Symptoms Reported All Other Systems Reviewed Negative Unless Noted: No Past Aqtamua-Doknul-Kchpmy Hx Patient Social History Type Used: Cigarettes Former Smoker, Quit: Sep 17, 2018 2nd Hand Smoke Exposure: Yes Recent Foreign Travel: No Contact w/Someone Who Travel: No Recent Hopitalizations: No Immunizations Up To Date PED Vaccines UTD: Yes Date of Pneumonia Vaccine: Apr 18, 2018 Date of Influenza Vaccine: Apr 24, 2019 Seasonal Allergies Seasonal Allergies: No Past Medical History Surgeries: Yes (heart cath- 2018 no stent placed, NICOLE KNEE SCOPES, R ARM-[place] PLACED) Cardiac, Gallbladder, 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, Oophorectomy, Orthopedic, 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 Respiratory: Yes Sleep Apnea, COPD Currently Using CPAP: Yes Currently Using BIPAP: No Cardiac: Yes (HEART CATH-NO STENTS, paroxysmal a-fib) Atrial Fibrillation, High Cholesterol, Hypertension Neurological: Yes (botox for migraines 11/20/19) Concussion, Headaches /Migraines, TIA, Traumatic Brain Injury Reproductive Disorders: No (1 OVARY REMOVED, TUBES TIED ) Female Reproductive Disorders: Denies LATEXER History: 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, 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 Sexually Transmitted Disease: No HIV/AIDS: No Genitourinary: Yes Kidney Stones Gastrointestinal: Yes Gastroesophageal Reflux, Chronic Diarrhea Musculoskeletal: Yes (BILAT KNEE SCOPES) Arthritis, Chronic Back Pain Endocrine: Yes (NON-COMPLIANT) Diabetes, Non-Insulin dep HEENT: Yes (GLASSES, MISSING SOME TEETH) Loss of Vision: Denies Cancer: No Psychosocial: Yes (EXTENSIVE PSYCH ISSUES) Anxiety, Depression Integumentary: Yes ("HAS SORES FROM RASH FROM ESTROGEN") Blood Disorders: Yes (ANEMIA) Adverse Reaction/Blood Tranf: No (N/A) Family Medical History Myocardial infarction GRANDMOTHER AUNT GRANDFATHER Seizure disorder Stroke 19 MOTHER GRANDMOTHER AUNT MATERNAL GRANDFATHER No Pertinent Family Hx Physical Exam Vital Signs Vital Signs - First Documented 06/06/20 17:55 Temp 36.0 Pulse 81 Resp 16 B/P (MAP) 135/94 (108) Pulse Ox 97 O2 Delivery Room Air Capillary Refill : Height/Weight/BMI Height: 5'0" Weight: 303lbs. 6.0oz. 137.060148jq; 49.00 BMI Method:Stated General Appearance: WD/WN, no apparent distress, obese Respiratory: no respiratory distress, no accessory muscle use Gastrointestinal: normal bowel sounds, soft, tenderness Extremities: normal range of motion, non-tender Neurologic/Psychiatric: alert, normal mood/affect, oriented x 3 Skin: normal color, warm/dry Progress/Results/Core Measures Results/Orders Lab Results Laboratory Tests Test 06/06/20 18:18 06/06/20 18:48 Range/Units White Blood Count 13.8 H 4.3-11.0 10^3/uL Red Blood Count 4.84 3.80-5.11 10^6/uL Hemoglobin 10.2 L 11.5-16.0 g/dL Hematocrit 34 L 35-52 % Mean Corpuscular Volume 71 L 80-99 fL Mean Corpuscular Hemoglobin 21 L 25-34 pg Mean Corpuscular Hemoglobin Concent 30 L 32-36 g/dL Red Cell Distribution Width 18.5 H 10.0-14.5 % Platelet Count 385 130-400 10^3/uL Mean Platelet Volume 10.8 9.0-12.2 fL Immature Granulocyte % (Auto) 0 % Neutrophils (%) (Auto) 63 42-75 % Lymphocytes (%) (Auto) 30 12-44 % Monocytes (%) (Auto) 5 0-12 % Eosinophils (%) (Auto) 1 0-10 % Basophils (%) (Auto) 1 0-10 % Neutrophils # (Auto) 8.7 H 1.8-7.8 10^3/uL Lymphocytes # (Auto) 4.1 H 1.0-4.0 10^3/uL Monocytes # (Auto) 0.7 0.0-1.0 10^3/uL Eosinophils # (Auto) 0.2 0.0-0.3 10^3/uL Basophils # (Auto) 0.1 0.0-0.1 10^3/uL Immature Granulocyte # (Auto) 0.1 0.0-0.1 10^3/uL Sodium Level 139 135-145 MMOL/L Potassium Level 4.0 3.6-5.0 MMOL/L Chloride Level 109 H 98-107 MMOL/L Carbon Dioxide Level 19 L 21-32 MMOL/L Anion Gap 11 5-14 MMOL/L Blood Urea Nitrogen 16 7-18 MG/DL Creatinine 1.08 0.60-1.30 MG/DL Estimat Glomerular Filtration Rate 54 BUN/Creatinine Ratio 15 Glucose Level 177 H 70-105 MG/DL Calcium Level 8.7 8.5-10.1 MG/DL Corrected Calcium 8.9 8.5-10.1 MG/DL Total Bilirubin 0.1 0.1-1.0 MG/DL Aspartate Amino Transf (AST/SGOT) 9 5-34 U/L Alanine Aminotransferase (ALT/SGPT) 16 0-55 U/L Alkaline Phosphatase 106 40-136 U/L Total Protein 6.9 6.4-8.2 GM/DL Albumin 3.7 3.2-4.5 GM/DL Lipase 13 8-78 U/L Urine Color YELLOW Urine Clarity CLEAR Urine pH 6.5 5-9 Urine Specific [place] 1.010 L 1.016-1.022 Urine Protein NEGATIVE NEGATIVE Urine Glucose (UA) NEGATIVE NEGATIVE Urine Ketones NEGATIVE NEGATIVE Urine Nitrite NEGATIVE NEGATIVE Urine Bilirubin NEGATIVE NEGATIVE Urine Urobilinogen 0.2 < = 1.0 MG/DL Urine Leukocyte Esterase NEGATIVE NEGATIVE Urine RBC (Auto) NEGATIVE NEGATIVE Urine RBC NONE /HPF Urine WBC 0-2 /HPF Urine Squamous Epithelial Cells 0-2 /HPF Urine Crystals NONE /LPF Urine Bacteria NEGATIVE /HPF Urine Casts NONE /LPF Urine Mucus NEGATIVE /LPF Urine Culture Indicated NO My Orders Orders - EMPERATRIZ LUNA APRN Cbc With Automated Diff (06/06/20 17:54) Comprehensive Metabolic Panel (06/06/20 17:54) Lipase (06/06/20 17:54) Ed Iv/Invasive Line Start (06/06/20 17:54) Ua Culture If Indicated (06/06/20 17:55) Fentanyl Injection (Sublimaze Injection (06/06/20 18:00) Ct Abdomen/Pelvis W (06/06/20 17:57) Iohexol Injection (Omnipaque 350 Mg/Ml 1 (06/06/20 18:30) Received Contrast (Hold Metformin- Contr (06/06/20 18:30) Ns (Ivpb) (Sodium Chloride 0.9% Ivpb Bag (06/06/20 18:30) Medications Given in ED Current Medications Medications Dose Ordered Sig/Lisa Route Start Time Stop Time Status Last Admin Dose Admin Fentanyl Citrate 50 mcg ONCE ONCE IVP 06/06/20 18:00 06/06/20 18:01 DC 06/06/20 18:16 50 MCG Iohexol 100 ml ONCE ONCE IV 06/06/20 18:30 06/06/20 18:31 DC 06/06/20 18:37 100 ML Sodium Chloride 100 ml ONCE ONCE IV 06/06/20 18:30 06/06/20 18:31 DC 06/06/20 18:37 80 ML Vital Signs/I&O 06/06/20 17:55 Temp 36.0 Pulse 81 Resp 16 B/P (MAP) 135/94 (108) Pulse Ox 97 O2 Delivery Room Air Departure Impression Primary Impression: Ventral hernia without obstruction or gangrene Disposition: HOME, SELF-CARE Condition: Stable Departure-Patient Inst. Decision time for Depature: 19:24 Referrals: OBINNA HARDING MD (PCP/Family) Primary Care Physician Patient Instructions: Hernia Repair (DC) Add. Discharge Instructions: 1. Return to ER for any concerns 2. Follow up with your doctor next week EMPERATRIZ LUNA APRN Jun 06, 2020 18:00
[2020-06-06 18:24] LABS: BASOPHILS # (AUTO) 0.1 10^3/uL (0.0-0.1); BASOPHILS % (AUTO) 1 % (0-10); EOSINOPHILS # (AUTO) 0.2 10^3/uL (0.0-0.3); EOSINOPHILS % (AUTO) 1 % (0-10); HEMATOCRIT 34 % (35-52); HEMOGLOBIN 10.2 g/dL (11.5-16.0); LYMPHOCYTES # (AUTO) 4.1 10^3/uL (1.0-4.0); LYMPHOCYTES % (AUTO) 30 % (12-44); MEAN CORPUSCULAR HEMOGLOBIN 21 pg (25-34); MEAN CORPUSCULAR HGB CONC 30 g/dL (32-36); MEAN CORPUSCULAR VOLUME 71 fL (80-99); MEAN PLATELET VOLUME 10.8 fL (9.0-12.2); MONOCYTES # (AUTO) 0.7 10^3/uL (0.0-1.0); MONOCYTES % (AUTO) 5 % (0-12); NEUTROPHILS # (AUTO) 8.7 10^3/uL (1.8-7.8); NEUTROPHILS % (AUTO) 63 % (42-75); PLATELET COUNT 385 10^3/uL (130-400); WHITE BLOOD COUNT 13.8 10^3/uL (4.3-11.0)
[2020-06-06] MEDS ORDERED: HOLD METFORMIN - RECEIVED CONTRAST 20 ML VIAL IV SCH (18:30)
[2020-06-06] MEDS ORDERED: NS 100 ML (IVPB) BAG IV ONE (18:30)
[2020-06-06] MEDS ORDERED: IOHEXOL 350 MG/ML 100 ML (OMNIPAQUE 350) VIAL IV ONE (18:30)
[2020-06-06 18:37] LABS: ALBUMIN 3.7 GM/DL (3.2-4.5)
[2020-06-06 18:39] LABS: CALCIUM 8.7 MG/DL (8.5-10.1)
[2020-06-06 18:40] LABS: TOTAL PROTEIN 6.9 GM/DL (6.4-8.2)
[2020-06-06 18:42] LABS: BILIRUBIN,TOTAL 0.1 MG/DL (0.1-1.0)
[2020-06-06 18:44] LABS: CREATININE SERUM 1.08 MG/DL (0.60-1.30)
[2020-06-06 19:00] LABS: BILIRUBIN,URINE NEGATIVE (NEGATIVE); CLARITY,URINE CLEAR; COLOR,URINE YELLOW; GLUCOSE, URINE (UA) NEGATIVE (NEGATIVE); KETONES,URINE NEGATIVE (NEGATIVE); LEUKOCYTE ESTERASE ,URINE NEGATIVE (NEGATIVE); NITRITE,URINE NEGATIVE (NEGATIVE); PH,URINE 6.5 (5-9); PROTEIN,URINE NEGATIVE (NEGATIVE)
--- NOTE | 2020-06-06 19:04 | Diagnostic Imaging Report ---
PROCEDURE: CT abdomen and pelvis with contrast. TECHNIQUE: Multiple contiguous axial images were obtained through the abdomen and pelvis after administration of intravenous contrast. Auto Exposure Controls were utilized during the CT exam to meet ALARA standards for radiation dose reduction. All CT scans use one or more of the following dose optimizing techniques: automated exposure control, MA and/or KvP adjustment based on patient size and exam type or iterative reconstruction. INDICATION: Hiatal hernia pain CORRELATION STUDY: 11/20/2019 FINDINGS: LOWER THORAX: Clear. LIVER: Enlarged at 20.6 cm. Diffuse steatosis. GALLBLADDER: Cholecystectomy. No significant bile duct dilatation. SPLEEN: Unremarkable. PANCREAS: Unremarkable. ADRENAL GLANDS: Unremarkable. KIDNEYS: Some asymmetric scarring and atrophy of the left kidney. Non-obstructing bilateral renal stones. No ureteric calcification or obstruction. ABDOMINAL AORTA: Unremarkable, nonaneurysmal. GASTROINTESTINAL TRACT: Stomach mildly distended with retained gastric contents. No small bowel obstruction. Colon unremarkable. Normal appendix is present. Midline anterior abdominal wall hernia. Defect measures 5.8 cm transverse and extends for approximately 5 cm in length. Herniated fat. No significant inflammation of the herniated contents. No bowel herniation. Additional small uncomplicated umbilical hernia is also present with fat only. No abdominal ascites or free air. URINARY BLADDER: Unremarkable. REPRODUCTIVE: Post hysterectomy changes. OSSEOUS STRUCTURES: Mildly advanced multilevel degenerative changes. Most pronounced at the L3-L4, L4-L5, and L5-S1 levels with disc space narrowing. Reactive endplate osteophyte formation with various degrees of canal and foraminal narrowing. OTHER: None. IMPRESSION: 1. Midline abdominal wall hernia defect containing fat only. No significant inflammation of the herniated fat. No herniated bowel contents. 2. Bilateral nonobstructing renal stones. Asymmetric scarring and atrophy left kidney. 3. Post cholecystectomy and hysterectomy. Dictated by: Dictated on workstation # [id number]
[2020-06-06 19:10] LABS: BACTERIA,URINE NEGATIVE /HPF; SQUAMOUS EPITHELIAL CELL,UR 0-2 /HPF; WBC,URINE 0-2 /HPF
[2020-06-06] MEDS ORDERED: KETOROLAC 30 MG/ML VIAL IVP ONE (19:30)
[2020-06-06 19:34] VITALS: BP 132/93
== END 2020-06-06 19:34 | disposition home or self-care (01) ==
LOC: EDUNIT# 17:39 → ER 17:40
DX: K43.9 Ventral hernia without obstruction or gangrene (principal); E66.9 Obesity, unspecified; F32.9 Major depressive disorder, single episode, unspecified; J44.9 Chronic obstructive pulmonary disease, unspecified; E78.00 Pure hypercholesterolemia, unspecified; I10 Essential (primary) hypertension; I48.0 Paroxysmal atrial fibrillation; E11.9 Type 2 diabetes mellitus without complications; F41.9 Anxiety disorder, unspecified; Z68.42 Body mass index [BMI] 45.0-49.9, adult; Z82.49 Family history of ischemic heart disease and other diseases of the circulatory system; Z95.9 Presence of cardiac and vascular implant and graft, unspecified; Z87.891 Personal history of nicotine dependence; Z91.040 Latex allergy status; Z88.0 Allergy status to penicillin; Z88.8 Allergy status to other drugs, medicaments and biological substances; Z86.73 Personal history of transient ischemic attack (TIA), and cerebral infarction without residual deficits; Z79.01 Long term (current) use of anticoagulants; Z79.84 Long term (current) use of oral hypoglycemic drugs
CPT/HCPCS: 36415; 74177; 80053; 81000; 83690; 85025; 96374; 96375

== ENCOUNTER 2020-06-17 11:42 | Emergency (ER) | payer MEDICARE, MEDICAID ==
[~2020-06-17] VITALS: Ht 165 cm; Wt 127.0 kg
--- NOTE | 2020-06-17 12:47 | ED Abdominal Pain ---
General Chief Complaint: Abdominal/GI Problems Stated Complaint: ABD PAIN, HERNIA Source of Information: Patient Exam Limitations: No Limitations History of Present Illness Date Seen by Provider: Jun 17, 2020 Time Seen by Provider: 12:46 Initial Comments to ER with persistent midline abdominal pain. Seen here recently for this diagnosed with a ventral hernia which was only fat containing. States she hasn't had a bowel movement in 3 days. States her pain is worse today. Timing/Duration: 1-2 Days Severity/Quality: Moderate Location: Generalized Abdomen Radiation: No Radiation Activities at Onset: None Associated Symptoms: No Nausea/Vomiting Allergies and Home Medications Allergies Coded Allergies: estradiol (Unverified Allergy, Severe, RASH/TIA, 11/14/19) Penicillins (Unverified Allergy, Mild, Hives, 06/28/19) povidone-iodine (Unverified Allergy, Mild, Hives, 06/28/19) Home Medications Albuterol Sulfate 1 Puff Puff, 2 PUFF INH QID PRN for SHORTNESS OF BREATH, (Reported) Apixaban 5 Mg Tablet, 5 MG PO BID, (Reported) Atorvastatin Calcium 10 Mg Tablet, 10 MG PO HS, (Reported) Famotidine 20 Mg Tablet, 20 MG PO BID, (Reported) Fluoxetine HCl 20 Mg Capsule, 20 MG PO DAILY, (Reported) Fluticasone/Vilanterol 1 Each Blst.w.dev, 1 EACH IH DAILY, (Reported) Gabapentin 600 Mg Tablet, 1,200 MG PO TID, (Reported) TAKES 2 (600MG) TABLETS Hydroxyzine HCl 25 Mg Tablet, 25 MG PO Q8H, (Reported) Metformin HCl 1,000 Mg Tablet, 1,000 MG PO BID, (Reported) Nitrofurantoin Monohyd/M-Cryst 100 Mg Capsule, 1 TAB PO BID Prescribed by: LAURENCE TILLMAN on 02/03/20 1638 Omeprazole 40 Mg Capsule.dr, 40 MG PO DAILY, (Reported) Promethazine HCl 12.5 Mg Tablet, 25 MG PO Q6H, (Reported) Propranolol HCl 120 Mg Cap.sa.24h, 120 MG PO DAILY, (Reported) Tizanidine HCl 2 Mg Tablet, 6 MG PO HS, (Reported) Topiramate 50 Mg Tablet, 150 MG PO BID, (Reported) TAKES 3 (50MG) TABLETS Patient Home Medication List Home Medication List Reviewed: Yes Review of Systems Review of Systems Constitutional: see HPI EENTM: No Symptoms Reported Respiratory: No Symptoms Reported Cardiovascular: No Symptoms Reported Gastrointestinal: See HPI, Abdominal Pain Genitourinary: No Symptoms Reported Musculoskeletal: no symptoms reported Skin: no symptoms reported Psychiatric/Neurological: No Symptoms Reported Hematologic/Lymphatic: No Symptoms Reported Past Chsbkjw-Gnnykz-Puflpc Hx Patient Social History Type Used: Cigarettes Former Smoker, Quit: Sep 17, 2018 2nd Hand Smoke Exposure: Yes Recent Foreign Travel: No Contact w/Someone Who Travel: No Recent Hopitalizations: No Immunizations Up To Date PED Vaccines UTD: Yes Date of Pneumonia Vaccine: Apr 18, 2018 Date of Influenza Vaccine: Apr 24, 2019 Seasonal Allergies Seasonal Allergies: No Past Medical History Surgeries: Yes (heart cath- 2018 no stent placed, NICOLE KNEE SCOPES, R ARM-[place] PLACED) Cardiac, Gallbladder, 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, Oophorectomy, Orthopedic, 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 Respiratory: Yes Sleep Apnea, COPD Currently Using CPAP: Yes Currently Using BIPAP: No Cardiac: Yes (HEART CATH-NO STENTS, paroxysmal a-fib) Atrial Fibrillation, High Cholesterol, Hypertension Neurological: Yes (botox for migraines 11/20/19) Concussion, Headaches /Migraines, TIA, Traumatic Brain Injury Reproductive Disorders: No (1 OVARY REMOVED, TUBES TIED ) 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, 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 Sexually Transmitted Disease: No HIV/AIDS: No Genitourinary: Yes Kidney Stones Gastrointestinal: Yes Gastroesophageal Reflux, Chronic Diarrhea Musculoskeletal: Yes (BILAT KNEE SCOPES) Arthritis, Chronic Back Pain Endocrine: Yes (NON-COMPLIANT) Diabetes, Non-Insulin dep HEENT: Yes (GLASSES, MISSING SOME TEETH) Loss of Vision: Denies Cancer: No Psychosocial: Yes (EXTENSIVE PSYCH ISSUES) Anxiety, Depression Integumentary: Yes ("HAS SORES FROM RASH FROM ESTROGEN") Blood Disorders: Yes (ANEMIA) Adverse Reaction/Blood Tranf: No (N/A) Family Medical History Myocardial infarction GRANDMOTHER AUNT GRANDFATHER Seizure disorder Stroke 19 MOTHER GRANDMOTHER AUNT MATERNAL GRANDFATHER No Pertinent Family Hx Physical Exam Vital Signs Vital Signs - First Documented 06/17/20 12:40 Temp 35.9 Pulse 78 Resp 16 B/P (MAP) 114/80 (91) Pulse Ox 96 O2 Delivery Room Air Capillary Refill : Height/Weight/BMI Height: 5'0" Weight: 303lbs. 6.0oz. [id number]; 48.00 BMI Method:Stated General Appearance: WD/WN, no apparent distress, obese Respiratory: normal breath sounds, no respiratory distress, no accessory muscle use Gastrointestinal: normal bowel sounds, soft Extremities: normal range of motion, non-tender Neurologic/Psychiatric: alert, normal mood/affect, oriented x 3 Skin: normal color, warm/dry Progress/Results/Core Measures Results/Orders Lab Results Laboratory Tests Test 06/17/20 12:53 Range/Units White Blood Count 11.0 4.3-11.0 10^3/uL Red Blood Count 4.94 3.80-5.11 10^6/uL Hemoglobin 10.3 L 11.5-16.0 g/dL Hematocrit 35 35-52 % Mean Corpuscular Volume 70 L 80-99 fL Mean Corpuscular Hemoglobin 21 L 25-34 pg Mean Corpuscular Hemoglobin Concent 30 L 32-36 g/dL Red Cell Distribution Width 18.4 H 10.0-14.5 % Platelet Count 343 130-400 10^3/uL Mean Platelet Volume 10.8 9.0-12.2 fL Immature Granulocyte % (Auto) 0 % Neutrophils (%) (Auto) 52 42-75 % Lymphocytes (%) (Auto) 39 12-44 % Monocytes (%) (Auto) 6 0-12 % Eosinophils (%) (Auto) 2 0-10 % Basophils (%) (Auto) 1 0-10 % Neutrophils # (Auto) 5.7 1.8-7.8 10^3/uL Lymphocytes # (Auto) 4.3 H 1.0-4.0 10^3/uL Monocytes # (Auto) 0.7 0.0-1.0 10^3/uL Eosinophils # (Auto) 0.2 0.0-0.3 10^3/uL Basophils # (Auto) 0.1 0.0-0.1 10^3/uL Immature Granulocyte # (Auto) 0.0 0.0-0.1 10^3/uL Sodium Level 139 135-145 MMOL/L Potassium Level 3.8 3.6-5.0 MMOL/L Chloride Level 109 H 98-107 MMOL/L Carbon Dioxide Level 19 L 21-32 MMOL/L Anion Gap 11 5-14 MMOL/L Blood Urea Nitrogen 11 7-18 MG/DL Creatinine 0.96 0.60-1.30 MG/DL Estimat Glomerular Filtration Rate > 60 BUN/Creatinine Ratio 11 Glucose Level 82 70-105 MG/DL Calcium Level 8.4 L 8.5-10.1 MG/DL Corrected Calcium 8.6 8.5-10.1 MG/DL Total Bilirubin 0.2 0.1-1.0 MG/DL Aspartate Amino Transf (AST/SGOT) 14 5-34 U/L Alanine Aminotransferase (ALT/SGPT) 21 0-55 U/L Alkaline Phosphatase 115 40-136 U/L Total Protein 7.2 6.4-8.2 GM/DL Albumin 3.7 3.2-4.5 GM/DL My Orders Orders - EMPERATRIZ LUNA APRN Cbc With Automated Diff (06/17/20 12:44) Comprehensive Metabolic Panel (06/17/20 12:44) Abdomen/Kub 1view (06/17/20 12:44) Abdomen/Kub 1view (06/17/20 12:44) Diatrizoate Meglum/Sodium 37% (Gastrogra (06/17/20 13:00) Medications Given in ED Current Medications Medications Dose Ordered Sig/Lisa Route Start Time Stop Time Status Last Admin Dose Admin Diatrizoate Meglum/ Diatrizoate Sod 120 ml ONCE ONCE PO 06/17/20 13:00 06/17/20 13:01 DC 06/17/20 12:57 120 ML Vital Signs/I&O 06/17/20 12:40 Temp 35.9 Pulse 78 Resp 16 B/P (MAP) 114/80 (91) Pulse Ox 96 O2 Delivery Room Air Diagnostic Imaging Diagonstic Imaging: Xray Comments NAME: EUGENE FUENTES [facility] REC#: [id number] PT STATUS: REG ER : 1970 PHYSICIAN: EMPERATRIZ LUNA APRN ADMIT DATE: 06/17/20/ER Draft Date of Exam:06/17/20 ABDOMEN/KUB 1VIEW HISTORY: Constipation. TECHNIQUE: Single frontal view of the abdomen was performed one hour following ingestion of Gastrografin contrast. COMPARISON: Radiographs from the same day. FINDINGS: Contrast is seen throughout the small bowel, with a small amount of contrast seen at the cecum. No bowel distention is seen. No large collection of free air is appreciated. Cholecystectomy clips are noted. IMPRESSION: 1. No bowel obstruction or large collection of free air. Contrast reaches the cecum by one hour. Dictated on workstation # [id number] Dict: 06/17/20 1434 Trans: 06/17/20 1438 AS6 [id number] Interpreted by: ART LARA MD Electronically signed by: Departure Communication (Admissions) [id number]-she's had a scan within the past month. I don't see the value and rescanning her at this point. I will rule out obstruction by getting a KUB, giving 120 mL Gastrografin and then repeating a KUB 1 hour later. Impression Primary Impression: Ventral hernia without obstruction or gangrene Disposition: HOME, SELF-CARE Condition: Stable Departure-Patient Inst. Decision time for Depature: 13:04 Referrals: MELANI PLASCENCIA BRETT D DO ENOCH, BETHANY N MD (PCP/Family) Primary Care Physician DEEPTI IVY MD Patient Instructions: No Instuctions Given Add. Discharge Instructions: 1. Follow-up with surgeon of your choosing. Call today to make an appointment to be seen. Return to ER for any concerns. All discharge instructions reviewed with patient and/or family. Voiced understanding. EMPERATRIZ LUNA WELCOME DESK AGENT Jun 17, 2020 12:47
[2020-06-17 13:00] LABS: BASOPHILS # (AUTO) 0.1 10^3/uL (0.0-0.1); BASOPHILS % (AUTO) 1 % (0-10); EOSINOPHILS # (AUTO) 0.2 10^3/uL (0.0-0.3); EOSINOPHILS % (AUTO) 2 % (0-10); HEMATOCRIT 35 % (35-52); HEMOGLOBIN 10.3 g/dL (11.5-16.0); LYMPHOCYTES # (AUTO) 4.3 10^3/uL (1.0-4.0); LYMPHOCYTES % (AUTO) 39 % (12-44); MEAN CORPUSCULAR HEMOGLOBIN 21 pg (25-34); MEAN CORPUSCULAR HGB CONC 30 g/dL (32-36); MEAN CORPUSCULAR VOLUME 70 fL (80-99); MEAN PLATELET VOLUME 10.8 fL (9.0-12.2); MONOCYTES # (AUTO) 0.7 10^3/uL (0.0-1.0); MONOCYTES % (AUTO) 6 % (0-12); NEUTROPHILS # (AUTO) 5.7 10^3/uL (1.8-7.8); NEUTROPHILS % (AUTO) 52 % (42-75); PLATELET COUNT 343 10^3/uL (130-400)
[2020-06-17] MEDS ORDERED: DIATRIZOATE MEGLUM/SODIUM 37% 120 ML (GASTROGRAFIN) PO ONE (13:00)
[2020-06-17 13:11] LABS: ALBUMIN 3.7 GM/DL (3.2-4.5); CHLORIDE 109 MMOL/L (98-107); POTASSIUM 3.8 MMOL/L (3.6-5.0); SODIUM 139 MMOL/L (135-145)
[2020-06-17 13:12] LABS: CALCIUM 8.4 MG/DL (8.5-10.1)
[2020-06-17 13:13] LABS: GLUCOSE 82 MG/DL (70-105)
[2020-06-17 13:14] LABS: TOTAL PROTEIN 7.2 GM/DL (6.4-8.2)
[2020-06-17 13:15] LABS: BILIRUBIN,TOTAL 0.2 MG/DL (0.1-1.0); CARBON DIOXIDE 19 MMOL/L (21-32)
[2020-06-17 13:17] LABS: ALKALINE PHOSPHATASE 115 U/L (40-136); CREATININE SERUM 0.96 MG/DL (0.60-1.30); GFR ESTIMATED > 60
[2020-06-17 13:18] LABS: BUN/CREATININE RATIO 11
[2020-06-17 13:20] LABS: ALANINE AMINOTRANSFERASE 21 U/L (0-55)
--- NOTE | 2020-06-17 13:56 | Diagnostic Imaging Report ---
INDICATION: Constipation. TIME OF EXAM: 12:58 PM. FINDINGS: Surgical clips are noted in the gallbladder fossa. The bowel gas pattern is nonobstructed. Calcifications in the left abdomen appear to be renal. No other abnormality is seen. IMPRESSION: Left renal calculi. No other significant abnormality is detected. Dictated by: Dictated on workstation # [id number]
--- NOTE | 2020-06-17 14:38 | Diagnostic Imaging Report ---
HISTORY: Constipation. TECHNIQUE: Single frontal view of the abdomen was performed one hour following ingestion of Gastrografin contrast. COMPARISON: Radiographs from the same day. FINDINGS: Contrast is seen throughout the small bowel, with a small amount of contrast seen at the cecum. No bowel distention is seen. No large collection of free air is appreciated. Cholecystectomy clips are noted. IMPRESSION: 1. No bowel obstruction or large collection of free air. Contrast reaches the cecum by one hour. Dictated by: Dictated on workstation # [id number]
--- NOTE | 2020-06-17 14:40 | NUR ---
RESTING IN BED WITHOUT COMPLAINTS AT THIS TIME.
[2020-06-17] MEDS ORDERED: KETOROLAC 60 MG/2 ML VIAL IM ONE (15:15)
[2020-06-17 15:16] VITALS: BP 114/80
== END 2020-06-17 15:15 | disposition home or self-care (01) ==
LOC: EDUNIT# 11:42 → ER 11:43
DX: K43.9 Ventral hernia without obstruction or gangrene (principal); E66.9 Obesity, unspecified; E78.00 Pure hypercholesterolemia, unspecified; E11.9 Type 2 diabetes mellitus without complications; I48.91 Unspecified atrial fibrillation; J44.9 Chronic obstructive pulmonary disease, unspecified; K21.9 Gastro-esophageal reflux disease without esophagitis; F32.9 Major depressive disorder, single episode, unspecified; F41.9 Anxiety disorder, unspecified; I10 Essential (primary) hypertension; Z68.42 Body mass index [BMI] 45.0-49.9, adult; Z87.891 Personal history of nicotine dependence; Z88.0 Allergy status to penicillin; Z91.041 Radiographic dye allergy status; Z88.8 Allergy status to other drugs, medicaments and biological substances; Z87.820 Personal history of traumatic brain injury; Z95.9 Presence of cardiac and vascular implant and graft, unspecified; Z82.49 Family history of ischemic heart disease and other diseases of the circulatory system; Z79.01 Long term (current) use of anticoagulants; Z79.84 Long term (current) use of oral hypoglycemic drugs
CPT/HCPCS: 36415; 74018; 80053; 85025

== ENCOUNTER 2020-06-19 13:05 | Emergency (ER) | payer MEDICARE, MEDICAID ==
[~2020-06-19] VITALS: Ht 165.1 cm; Wt 118.0 kg
[2020-06-19 13:46] LABS: BASOPHILS # (AUTO) 0.1 10^3/uL (0.0-0.1); BASOPHILS % (AUTO) 0 % (0-10); EOSINOPHILS # (AUTO) 0.2 10^3/uL (0.0-0.3); EOSINOPHILS % (AUTO) 1 % (0-10); HEMATOCRIT 33 % (35-52); HEMOGLOBIN 9.8 g/dL (11.5-16.0); LYMPHOCYTES # (AUTO) 3.5 10^3/uL (1.0-4.0); LYMPHOCYTES % (AUTO) 25 % (12-44); MEAN CORPUSCULAR HEMOGLOBIN 21 pg (25-34); MEAN CORPUSCULAR HGB CONC 30 g/dL (32-36); MEAN CORPUSCULAR VOLUME 71 fL (80-99); MEAN PLATELET VOLUME 11.5 fL (9.0-12.2); MONOCYTES # (AUTO) 0.8 10^3/uL (0.0-1.0); MONOCYTES % (AUTO) 6 % (0-12); NEUTROPHILS # (AUTO) 9.4 10^3/uL (1.8-7.8); NEUTROPHILS % (AUTO) 67 % (42-75); PLATELET COUNT 355 10^3/uL (130-400)
[2020-06-19 13:48] LABS: ALBUMIN 3.7 GM/DL (3.2-4.5); POTASSIUM 4.2 MMOL/L (3.6-5.0)
[2020-06-19 13:49] LABS: CALCIUM 8.4 MG/DL (8.5-10.1)
[2020-06-19 13:50] LABS: TOTAL PROTEIN 7.3 GM/DL (6.4-8.2)
[2020-06-19 13:52] LABS: BILIRUBIN,TOTAL 0.2 MG/DL (0.1-1.0)
[2020-06-19 13:54] LABS: CREATININE SERUM 1.07 MG/DL (0.60-1.30)
--- NOTE | 2020-06-19 14:12 | ED Abdominal Pain ---
General Chief Complaint: Abdominal/GI Problems Stated Complaint: LLQ PAIN Nursing Triage Note: AMB TO ROOM WITH C/O L LOWER QUAD PAIN NEEDS TO HAE HERNIA SURG WAS TOLD BY DR PLASCENCIA NEEDED TO LOOSE 20LBS TO HAVE SURG YESTERDAY. FELT GURGLING IN ABD YESTERDAY. Sepsis Screen: No Definite Risk Source of Information: Patient Exam Limitations: No Limitations History of Present Illness Date Seen by Provider: Jun 19, 2020 Time Seen by Provider: 14:00 Initial Comments This is a 49-year-old female who presents to the ER with complaints of abdominal pain. States she was seen here 3 days ago for similar complaints. However, yesterday she noticed that her hiatal hernia which is typically present on her abdomen has "disappeared". She developed severe left upper quadrant, left lower quadrant abdominal pain with nausea. She is no longer passing gas. Denies fevers, chills, cough, shortness of breath, chest pain. Allergies and Home Medications Allergies Coded Allergies: estradiol (Unverified Allergy, Severe, RASH/TIA, 11/14/19) Penicillins (Unverified Allergy, Mild, Hives, 06/28/19) povidone-iodine (Unverified Allergy, Mild, Hives, 06/28/19) Home Medications Albuterol Sulfate 1 Puff Puff, 2 PUFF INH QID PRN for SHORTNESS OF BREATH, (Reported) Apixaban 5 Mg Tablet, 5 MG PO BID, (Reported) Atorvastatin Calcium 10 Mg Tablet, 10 MG PO HS, (Reported) Famotidine 20 Mg Tablet, 20 MG PO BID, (Reported) Fluoxetine HCl 20 Mg Capsule, 20 MG PO DAILY, (Reported) Fluticasone/Vilanterol 1 Each Blst.w.dev, 1 EACH IH DAILY, (Reported) Gabapentin 600 Mg Tablet, 1,200 MG PO TID, (Reported) TAKES 2 (600MG) TABLETS Hydroxyzine HCl 25 Mg Tablet, 25 MG PO Q8H, (Reported) Metformin HCl 1,000 Mg Tablet, 1,000 MG PO BID, (Reported) Nitrofurantoin Monohyd/M-Cryst 100 Mg Capsule, 1 TAB PO BID Prescribed by: LAURENCE TILLMAN on 02/03/20 1638 Omeprazole 40 Mg Capsule., 40 MG PO DAILY, (Reported) Promethazine HCl 12.5 Mg Tablet, 25 MG PO Q6H, (Reported) Propranolol HCl 120 Mg Cap.sa.24h, 120 MG PO DAILY, (Reported) Tizanidine HCl 2 Mg Tablet, 6 MG PO HS, (Reported) Topiramate 50 Mg Tablet, 150 MG PO BID, (Reported) TAKES 3 (50MG) TABLETS Patient Home Medication List Home Medication List Reviewed: Yes Review of Systems Review of Systems Constitutional: see HPI EENTM: No Symptoms Reported Respiratory: Cough (chronic ); Denies Shortness of Air, Denies SOA With Exertion, Denies SOA at Rest Cardiovascular: No Symptoms Reported Gastrointestinal: See HPI Genitourinary: No Symptoms Reported Musculoskeletal: no symptoms reported Skin: no symptoms reported Psychiatric/Neurological: No Symptoms Reported Endocrine: No Symptoms Reported Hematologic/Lymphatic: No Symptoms Reported Past Ynmzogf-Bwmbzd-Dszdmi Hx Patient Social History Alcohol Use: Denies Use Recreational Drug Use: No Smoking Status: Current Everyday Smoker Type Used: Cigarettes Former Smoker, Quit: Sep 17, 2018 2nd Hand Smoke Exposure: Yes Recent Foreign Travel: No Contact w/Someone Who Travel: No Recent Infectious Disease Expo: No Recent Hopitalizations: No Immunizations Up To Date PED Vaccines UTD: Yes Date of Pneumonia Vaccine: Apr 18, 2018 Date of Influenza Vaccine: Apr 24, 2019 Seasonal Allergies Seasonal Allergies: No Past Medical History Surgeries: Yes (heart cath- 2019 no stent placed, NICOLE KNEE SCOPES, R ARM-[place] PLACED) Cardiac, Gallbladder, 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, Oophorectomy, Orthopedic, 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 Respiratory: Yes Sleep Apnea, COPD Currently Using CPAP: Yes Currently Using BIPAP: No Cardiac: Yes (HEART CATH-NO STENTS, paroxysmal a-fib) Atrial Fibrillation, High Cholesterol, Hypertension Neurological: Yes (botox for migraines 11/20/19) Concussion, Headaches /Migraines, TIA, Traumatic Brain Injury Reproductive Disorders: No (1 OVARY REMOVED, TUBES TIED ) 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, 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 Sexually Transmitted Disease: No HIV/AIDS: No Genitourinary: Yes Kidney Stones Gastrointestinal: Yes Gastroesophageal Reflux, Chronic Diarrhea Musculoskeletal: Yes (BILAT KNEE SCOPES) Arthritis, Chronic Back Pain Endocrine: Yes (NON-COMPLIANT) Diabetes, Non-Insulin dep HEENT: Yes (GLASSES, MISSING SOME TEETH) Loss of Vision: Denies Cancer: No Psychosocial: Yes (EXTENSIVE PSYCH ISSUES) Anxiety, Depression Integumentary: Yes ("HAS SORES FROM RASH FROM ESTROGEN") Blood Disorders: Yes (ANEMIA) Adverse Reaction/Blood Tranf: No (N/A) Family Medical History Myocardial infarction GRANDMOTHER AUNT GRANDFATHER Seizure disorder Stroke 19 MOTHER GRANDMOTHER AUNT MATERNAL GRANDFATHER No Pertinent Family Hx Physical Exam Vital Signs Vital Signs - First Documented 06/19/20 13:12 Temp 36.4 Pulse 82 Resp 22 B/P (MAP) 125/99 (108) Pulse Ox 98 O2 Delivery Room Air Capillary Refill : Less Than 3 Seconds Height/Weight/BMI Height: 5'0" Weight: 303lbs. 6.0oz. 137.229059ji; 43.00 BMI Method:Stated General Appearance: WD/WN, no apparent distress HEENT: PERRL/EOMI, normal ENT inspection Neck: full range of motion, normal inspection Respiratory: lungs clear, no respiratory distress Cardiovascular: regular rate, rhythm, no edema, no gallop Gastrointestinal: normal bowel sounds, soft; No distended, No rebound; hernia (ventral ) Extremities: normal range of motion, non-tender, normal inspection, no pedal edema, no calf tenderness, normal capillary refill Back: normal inspection Neurologic/Psychiatric: no motor/sensory deficits, alert, normal mood/affect, oriented x 3 Skin: normal color, warm/dry, other (multiple scabs on BUE and BLE) Progress/Results/Core Measures Results/Orders Lab Results Laboratory Tests Test 06/19/20 13:20 06/19/20 15:00 Range/Units White Blood Count 14.0 H 4.3-11.0 10^3/uL Red Blood Count 4.66 3.80-5.11 10^6/uL Hemoglobin 9.8 L 11.5-16.0 g/dL Hematocrit 33 L 35-52 % Mean Corpuscular Volume 71 L 80-99 fL Mean Corpuscular Hemoglobin 21 L 25-34 pg Mean Corpuscular Hemoglobin Concent 30 L 32-36 g/dL Red Cell Distribution Width 18.3 H 10.0-14.5 % Platelet Count 355 130-400 10^3/uL Mean Platelet Volume 11.5 9.0-12.2 fL Immature Granulocyte % (Auto) 1 % Neutrophils (%) (Auto) 67 42-75 % Lymphocytes (%) (Auto) 25 12-44 % Monocytes (%) (Auto) 6 0-12 % Eosinophils (%) (Auto) 1 0-10 % Basophils (%) (Auto) 0 0-10 % Neutrophils # (Auto) 9.4 H 1.8-7.8 10^3/uL Lymphocytes # (Auto) 3.5 1.0-4.0 10^3/uL Monocytes # (Auto) 0.8 0.0-1.0 10^3/uL Eosinophils # (Auto) 0.2 0.0-0.3 10^3/uL Basophils # (Auto) 0.1 0.0-0.1 10^3/uL Immature Granulocyte # (Auto) 0.1 0.0-0.1 10^3/uL Sodium Level 140 135-145 MMOL/L Potassium Level 4.2 3.6-5.0 MMOL/L Chloride Level 111 H 98-107 MMOL/L Carbon Dioxide Level 17 L 21-32 MMOL/L Anion Gap 12 5-14 MMOL/L Blood Urea Nitrogen 12 7-18 MG/DL Creatinine 1.07 0.60-1.30 MG/DL Estimat Glomerular Filtration Rate 55 BUN/Creatinine Ratio 11 Glucose Level 172 H 70-105 MG/DL Calcium Level 8.4 L 8.5-10.1 MG/DL Corrected Calcium 8.6 8.5-10.1 MG/DL Total Bilirubin 0.2 0.1-1.0 MG/DL Aspartate Amino Transf (AST/SGOT) 14 5-34 U/L Alanine Aminotransferase (ALT/SGPT) 19 0-55 U/L Alkaline Phosphatase 108 40-136 U/L Lactate Dehydrogenase 203 125-220 U/L Total Creatine Kinase 48 29-168 U/L C-Reactive Protein High Sensitivity 3.71 H 0.00-0.50 MG/DL Total Protein 7.3 6.4-8.2 GM/DL Albumin 3.7 3.2-4.5 GM/DL Amylase Level 24 L 25-125 U/L Lipase 7 L 8-78 U/L Urine Color YELLOW Urine Clarity CLEAR Urine pH 7.5 5-9 Urine Specific [place] 1.015 L 1.016-1.022 Urine Protein NEGATIVE NEGATIVE Urine Glucose (UA) NEGATIVE NEGATIVE Urine Ketones NEGATIVE NEGATIVE Urine Nitrite NEGATIVE NEGATIVE Urine Bilirubin NEGATIVE NEGATIVE Urine Urobilinogen 0.2 < = 1.0 MG/DL Urine Leukocyte Esterase NEGATIVE NEGATIVE Urine RBC (Auto) NEGATIVE NEGATIVE Urine RBC NONE /HPF Urine WBC 0-2 /HPF Urine Squamous Epithelial Cells 5-10 /HPF Urine Crystals NONE /LPF Urine Bacteria TRACE /HPF Urine Casts NONE /LPF Urine Mucus NEGATIVE /LPF Urine Culture Indicated NO My Orders Orders - ELENA CHRISTOPHER APRN Comprehensive Metabolic Panel (06/19/20 13:40) Lipase (06/19/20 13:40) Amylase (06/19/20 13:40) Ua Culture If Indicated (06/19/20 13:40) Cbc With Automated Diff (06/19/20 13:40) Hs C Reactive Protein (06/19/20 13:40) Creatine Kinase (06/19/20 14:10) LDH (06/19/20 14:10) Diphenhydramine Injection (Benadryl Inje (06/19/20 14:15) Fentanyl Injection (Sublimaze Injection (06/19/20 14:15) Ondansetron Injection (Zofran Injectio (06/19/20 14:15) Ct Abdomen/Pelvis W (06/19/20 14:26) Iohexol Injection (Omnipaque 350 Mg/Ml 1 (06/19/20 14:30) Received Contrast (Hold Metformin- Contr (06/19/20 14:30) Ns (Ivpb) (Sodium Chloride 0.9% Ivpb Bag (06/19/20 14:30) Acute Abd Series (06/19/20 16:17) Medications Given in ED Current Medications Medications Dose Ordered Sig/Lisa Route Start Time Stop Time Status Last Admin Dose Admin Diphenhydramine HCl 25 mg ONCE ONCE IVP 06/19/20 14:15 06/19/20 14:16 DC 06/19/20 14:22 25 MG Fentanyl Citrate 50 mcg ONCE ONCE IVP 06/19/20 14:15 06/19/20 14:16 DC 06/19/20 14:26 50 MCG Iohexol 100 ml ONCE ONCE IV 06/19/20 14:30 06/19/20 14:32 DC 06/19/20 14:42 100 ML Ondansetron HCl 4 mg ONCE ONCE IVP 06/19/20 14:15 06/19/20 14:16 DC 06/19/20 14:26 4 MG Sodium Chloride 100 ml ONCE ONCE IV 06/19/20 14:30 06/19/20 14:32 DC 06/19/20 14:42 80 ML Vital Signs/I&O 06/19/20 06/19/20 13:12 17:43 Temp 36.4 Pulse 82 78 Resp 22 18 B/P (MAP) 125/99 (108) 114/94 Pulse Ox 98 98 O2 Delivery Room Air Room Air Blood Pressure Mean: 108 Progress Progress Note : Progress Note Throughout ED course patient reported to nurse tech that she could not feel anything below her knees on both sides. When I went to examine patient she was laughing though neurological exam of lower extremities. She had full ROM, plantar/achilles reflex intact, and pulled away from noxious stimuli. She then proceeded to state "well I can feel it a little bit". Apx. 20 minutes after making statement, she proceeds to tell tech "oh yes, I forgot this happens when I get migraines" and reported symptoms completely resolved. Reviewed POC with her and she is agreeable with plan. Diagnostic Imaging Diagonstic Imaging: Xray Plain Films/CT/US/NM/MRI: abdomen Comments NAME: EUGENE FUENTES [facility] REC#: [id number] PT STATUS: REG ER : 1970 PHYSICIAN: ELENA CHRISTOPHER APRN ADMIT DATE: 06/19/20/ER Signed Date of Exam:06/19/20 ACUTE ABD SERIES INDICATION: Abdominal pain, history of hernia. Abdominal series performed with frontal chest radiograph and supine and upright abdominal films. Frontal chest view shows no pulmonary infiltrate. The heart is normal in size. There is no pleural fluid. There is no free intraperitoneal air. The abdominal bowel gas pattern is unremarkable. There is some residual contrast throughout the colon and in the kidneys. There is some residual contrast in the bladder. There are surgical clips in the right upper quadrant. IMPRESSION: Unremarkable bowel gas pattern with residual contrast as above. There is no free air or acute process in the chest. Dictated by: Dictated on workstation # [id number] Dict: 06/19/20 1717 Trans: 06/19/201742 CV [id number] Interpreted by: SANDOVAL STEVENSON MD Electronically signed by: SANDOVAL STEVENSON MD 06/19/20 1743 Diagonstic Imaging: CT Plain Films/CT/US/NM/MRI: abdomen Comments NAME: EUGENE FUENTES [facility] REC#: [id number] PT STATUS: REG ER : 1970 PHYSICIAN: ELENA CHRISTOPHER APRN ADMIT DATE: 06/19/20/ER Signed Date of Exam:06/19/20 CT ABDOMEN/PELVIS W EXAMINATION: CT Abdomen and Pelvis with intravenous contrast. TECHNIQUE: Multiple contiguous axial images were obtained through the abdomen and pelvis after the uneventful administration of intravenous contrast. All CT scans use one or more of the following dose optimizing techniques: automated exposure control, MA and/or KvP adjustment based on a patient size and exam type, or iterative reconstruction. HISTORY: Abdominal pain. COMPARISON: 06/06/2020. FINDINGS: Limited views of the lower thorax are unremarkable. The liver is normal without focal lesion. There is no biliary ductal dilation. Gallbladder is surgically absent. Pancreas is normal. Spleen is normal. Adrenal glands are normal. There are small bilateral nonobstructing stones. Left kidney is mildly atrophic with areas of cortical scarring. There is no hydronephrosis. Urinary bladder is normal. Visualized bowel is normal in caliber without obstruction or inflammation. Large ventral abdominal hernia containing fat is seen, similar to prior exam. No free fluid or air. No abdominal or pelvic lymphadenopathy. Aorta is normal in caliber without aneurysm. There are no suspicious osseous lesions. IMPRESSION: 1. Large ventral abdominal hernia containing fat, unchanged from prior exam. Otherwise, no acute abnormality. Dictated by: Dictated on workstation # [id number] Dict: 06/19/20 1454 Trans: 06/19/20 1642 AS6 [id number] Interpreted by: LOLLY LIU MD Electronically signed by: LOLLY LIU MD 06/19/20 1642 Departure Impression Primary Impression: Abdominal pain Additional Impression: Chronic migraine Disposition: 01 HOME, SELF-CARE Condition: Improved Departure-Patient Inst. Decision time for Depature: 17:38 Referrals: OBINNA HARDING MD (PCP/Family) Primary Care Physician Patient Instructions: Constipation, Adult (DC), Acute Pain, Adult Add. Discharge Instructions: Plan: 1. Discharge home. 2. May take Tylenol or Ibuprofen as needed for pain per package instructions. 3. Follow up with your primary care provider if your symptoms persist. 4. Drink plenty of fluids. 5. Return for any new or concerning symptoms. All discharge instructions reviewed with patient and/or family. Voiced understanding. ELENA CHRISTOPHER ODD JOB WORKER Jun 19, 2020 14:12
[2020-06-19] MEDS ORDERED: fentaNYL INJECTION 100 MCG/2 ML AMP IVP ONE (14:15)
[2020-06-19] MEDS ORDERED: ONDANSETRON 4 MG/2 ML (SDV) Z0FRAN IVP ONE (14:15)
[2020-06-19] MEDS ORDERED: diphenhydrAMINE 50 MG/ML INJ (BENADRYL) IVP ONE (14:15)
[2020-06-19] MEDS ORDERED: IOHEXOL 350 MG/ML 100 ML (OMNIPAQUE 350) VIAL IV ONE (14:30)
[2020-06-19] MEDS ORDERED: HOLD METFORMIN - RECEIVED CONTRAST 20 ML VIAL IV SCH (14:30)
[2020-06-19] MEDS ORDERED: NS 100 ML (IVPB) BAG IV ONE (14:30)
[2020-06-19 14:36] LABS: CREATINE KINASE 48 U/L (29-168)
--- NOTE | 2020-06-19 14:59 | Diagnostic Imaging Report ---
EXAMINATION: CT Abdomen and Pelvis with intravenous contrast. TECHNIQUE: Multiple contiguous axial images were obtained through the abdomen and pelvis after the uneventful administration of intravenous contrast. All CT scans use one or more of the following dose optimizing techniques: automated exposure control, MA and/or KvP adjustment based on a patient size and exam type, or iterative reconstruction. HISTORY: Abdominal pain. COMPARISON: 06/06/2020. FINDINGS: Limited views of the lower thorax are unremarkable. The liver is normal without focal lesion. There is no biliary ductal dilation. Gallbladder is surgically absent. Pancreas is normal. Spleen is normal. Adrenal glands are normal. There are small bilateral nonobstructing stones. Left kidney is mildly atrophic with areas of cortical scarring. There is no hydronephrosis. Urinary bladder is normal. Visualized bowel is normal in caliber without obstruction or inflammation. Large ventral abdominal hernia containing fat is seen, similar to prior exam. No free fluid or air. No abdominal or pelvic lymphadenopathy. Aorta is normal in caliber without aneurysm. There are no suspicious osseous lesions. IMPRESSION: 1. Large ventral abdominal hernia containing fat, unchanged from prior exam. Otherwise, no acute abnormality. Dictated by: Dictated on workstation # [id number]
[2020-06-19 15:13] LABS: BILIRUBIN,URINE NEGATIVE (NEGATIVE); CLARITY,URINE CLEAR; COLOR,URINE YELLOW; GLUCOSE, URINE (UA) NEGATIVE (NEGATIVE); KETONES,URINE NEGATIVE (NEGATIVE); LEUKOCYTE ESTERASE ,URINE NEGATIVE (NEGATIVE); NITRITE,URINE NEGATIVE (NEGATIVE); PH,URINE 7.5 (5-9); PROTEIN,URINE NEGATIVE (NEGATIVE)
[2020-06-19 15:22] LABS: BACTERIA,URINE TRACE /HPF; WBC,URINE 0-2 /HPF
--- NOTE | 2020-06-19 15:30 | NUR ---
C/O NOT BEING ABLE TO FEEL LEGS S CANDI WALL COVERING INSTALLER TO ROOM PATIENT ABLE TO MOVE.
--- NOTE | 2020-06-19 17:21 | Diagnostic Imaging Report ---
INDICATION: Abdominal pain, history of hernia. Abdominal series performed with frontal chest radiograph and supine and upright abdominal films. Frontal chest view shows no pulmonary infiltrate. The heart is normal in size. There is no pleural fluid. There is no free intraperitoneal air. The abdominal bowel gas pattern is unremarkable. There is some residual contrast throughout the colon and in the kidneys. There is some residual contrast in the bladder. There are surgical clips in the right upper quadrant. IMPRESSION: Unremarkable bowel gas pattern with residual contrast as above. There is no free air or acute process in the chest. Dictated by: Dictated on workstation # [id number]
--- NOTE | 2020-06-19 17:38 | NUR ---
PATIENT NOW REPORTS THAT SHE FORGOT THAT WHEN SHE HAS HEADACHE SHE SOMETIMES CAN'T FEEL LEGS REPORTS NOW SHE IS OK
[2020-06-19 17:43] VITALS: BP 114/94
== END 2020-06-19 17:43 | disposition home or self-care (01) ==
LOC: EDUNIT# 13:05 → ER 13:06
DX: R10.32 Left lower quadrant pain (principal); R10.12 Left upper quadrant pain; G43.909 Migraine, unspecified, not intractable, without status migrainosus; I48.0 Paroxysmal atrial fibrillation; E78.00 Pure hypercholesterolemia, unspecified; J44.9 Chronic obstructive pulmonary disease, unspecified; K21.9 Gastro-esophageal reflux disease without esophagitis; E11.9 Type 2 diabetes mellitus without complications; F41.9 Anxiety disorder, unspecified; I10 Essential (primary) hypertension; F32.9 Major depressive disorder, single episode, unspecified; Z88.0 Allergy status to penicillin; Z91.041 Radiographic dye allergy status; Z88.8 Allergy status to other drugs, medicaments and biological substances; Z82.49 Family history of ischemic heart disease and other diseases of the circulatory system; Z95.9 Presence of cardiac and vascular implant and graft, unspecified; Z87.820 Personal history of traumatic brain injury; F17.210 Nicotine dependence, cigarettes, uncomplicated; Z79.01 Long term (current) use of anticoagulants; Z79.84 Long term (current) use of oral hypoglycemic drugs
CPT/HCPCS: 36415; 74022; 74177; 80053; 81000; 82150; 82550; 83615; 83690; 85025; 86141

== ENCOUNTER → 2020-07-09 | Outpatient (CLI) | payer MEDICARE, MEDICAID ==
--- NOTE | 2020-07-09 13:36 | Diagnostic Imaging Report ---
PROCEDURE: US Thyroid. TECHNIQUE: Multiple real-time grayscale images were obtained of the thyroid in various projections. INDICATION: Multinodular goiter, follow-up. COMPARISON: Correlation is made with prior thyroid ultrasound from 04/02/2020. FINDINGS: Right lobe of thyroid measures 6.3 x 3.0 x 2.6 cm and the left lobe measures 6.0 x 1.8 x 2.3 cm. Isthmus is 6 mm in thickness. Circumscribed hypoechoic nodule in upper pole of right lobe thyroid measures 2.0 x 1.5 x 1.9 cm compared with 2.2 x 1.7 x 2.0 cm. Solid nodule in midportion of right lobe measures 1.4 x 1.2 x 1.5 cm compared with 1.6 x 1.3 x 1.8 cm. Solid nodule in lower pole measures 2.2 x 1.9 x 2.3 cm compared with 2.8 x 2.0 x 2.2 cm on prior. There are several subcentimeter nodules in the left lobe measuring 6-9 mm, stable when compared to prior exam. There is a nodule in the isthmus on today's study approximately 10 mm in size. IMPRESSION: Multinodular thyroid, stable when compared with examination from 04/02/2020. Dictated by: Dictated on workstation # [id number]
== END ==
LOC: RAD 11:15
PROVIDERS: ATTEND Family Medicine
DX: E04.2 Nontoxic multinodular goiter (principal)
CPT/HCPCS: 76536

== ENCOUNTER → 2020-07-24 | Outpatient (CLI) | payer MEDICARE, MEDICAID ==
[~2020-07-24] VITALS: Ht 165.1 cm; Wt 131.4 kg
[~2020-07-24] MED LIST changes: +LIDOCAINE 1% INJ 20 ML 20 ML VIAL INJ ONE; +LIDOCAINE 1% INJ 20 ML 20 ML VIAL ONE
--- NOTE | 2020-07-24 14:30 | Diagnostic Imaging Report ---
INDICATION: Multinodular thyroid. Patient presents for ultrasound-guided fine-needle aspiration. FINDINGS: Patient was brought to the procedure room, placed on the table in the supine position. Ultrasound imaging of the right neck was performed to evaluate appropriate entry site. Right neck was then prepped and draped in the usual sterile fashion. Small amount of 1% lidocaine was utilized for local anesthesia. Dominant hypoechoic solid nodule in the upper pole of the right lobe was noted. Total of four passes were made into the upper pole nodule utilizing 25-gauge needles and fine-needle aspiration technique. A single pass was performed with Rotex needle. Next, three passes were made into the dominant solid mass in the posterior right right lobe of the thyroid in the [id number] aspect utilizing 25-gauge needles and fine-needle aspiration technique. Hemostasis was obtained. Patient tolerated the procedure well and left the department in stable condition. IMPRESSION: Successful ultrasound-guided fine-needle aspiration and Rotex biopsy of right lobe thyroid nodules. Pathology results are currently pending. Dictated by: Dictated on workstation # [id number]
== END ==
LOC: RAD 13:30
PROVIDERS: ATTEND Family Medicine
DX: E04.2 Nontoxic multinodular goiter (principal)

== ENCOUNTER → 2020-08-05 | Outpatient (CLI) | payer MEDICARE, MEDICAID ==
[~2020-08-05] MED LIST changes: -LIDOCAINE 1% INJ 20 ML 20 ML VIAL INJ ONE; -LIDOCAINE 1% INJ 20 ML 20 ML VIAL ONE
--- NOTE | 2020-08-05 10:43 | Diagnostic Imaging Report ---
PROCEDURE: CT neck soft tissue without contrast. TECHNIQUE: Multiple contiguous axial images were obtained through the neck without the use of intravenous contrast. Auto Exposure Controls were utilized during the CT exam to meet ALARA standards for radiation dose reduction. INDICATION: Difficulty swallowing. Multinodular thyroid. COMPARISON: Ultrasound guided thyroid biopsy 07/24/2020. Ultrasound thyroid 07/09/2020. FINDINGS: Evaluation is limited by the lack of IV contrast. The thyroid is diffusely enlarged, right greater than left. A discrete hypoattenuating nodule in the superior right thyroid measures up to 2.3 cm. Mild rightward deviation of the trachea. Prominent left level 1A and 1B cervical lymph nodes remain subcentimeter in short axis dimension and maintain a normal fatty hilum. No cervical lymphadenopathy by criteria. Fluid attenuation mass associated with the dermis overlying the left occiput measures up to 2.4 cm and would be compatible with an epidermoid cyst. The submandibular parotid glands are unremarkable. The floor of the mouth, tongue base, epiglottis, and retropharyngeal spaces appear negative. The visualized intracranial contents and orbits are normal. Mild mucosal thickening in the right maxillary sinus. Mild to moderate spondylotic changes in the cervical spine. No acute osseous findings. IMPRESSION: 1. No acute CT findings in the neck on this noncontrast exam. 2. Enlarged right thyroid gland is better characterized with the comparison ultrasounds. There is mild leftward deviation of the trachea due to mass effect. Dictated by: Dictated on workstation # [id number]
== END ==
LOC: RAD 10:05
PROVIDERS: ATTEND Family Medicine
DX: E04.2 Nontoxic multinodular goiter (principal)
CPT/HCPCS: 70490

== ENCOUNTER 2020-08-08 10:05 | Emergency (ER) | payer MEDICARE, MEDICAID ==
[~2020-08-08] VITALS: Ht 67 cm; Wt 134.0 kg
[~2020-08-08 10:05] MED LIST changes: -CLIN150C17 PO; +CLIN150C18 PO; +TIZA-169 PO; -TIZA2TAB7 PO
--- NOTE | 2020-08-08 12:33 | Diagnostic Imaging Report ---
Clinical Indication: Patient with pain to the right side of head after pain shot was given. Exam: Axial CT scan of the brain without IV contrast with coronal and sagittal reformatted images. Auto Exposure Controls were utilized during the CT exam to meet ALARA standards for radiation dose reduction. Comparison: Head CT without contrast dated 09/12/2019. Findings: There is skull streak artifact which obscures portions of the brainstem, posterior fossa, and portions of the brain near the skull base. There is no evidence of acute cerebral infarct, intracranial hemorrhage, or gross mass effect. The brain parenchymal volume appears appropriate for patient's age. There is normal scales-white matter distinction. There is no significant midline shift or herniation. There is no evidence of hydrocephalus. The basal cisterns are unremarkable. The skull, extracranial soft tissue, and orbits are unremarkable. Incompletely imaged minimal mucosal thickening in the right maxillary sinus. Temporal bones show no significant abnormality. Impression: There is minimal right maxillary sinus disease. Otherwise, unremarkable CT scan of the brain for age. Dictated by: Dictated on workstation # [id number]
--- NOTE | 2020-08-08 12:48 | ED General ---
General Chief Complaint: Facial Problems Stated Complaint: POSSIBLE STROKE Nursing Triage Note: patient states has enlarged thryoid goiter, states this am around 0600 she thinks a goiter "popped" in her neck. she states coughed up dark/black thick liquid, other time foamy yellow bright red liquid. patient states she then went to Dr Monsalve office recieved a steroid shot, for swollen thyroid. due to this patient can not eat nor take medication. patient states after office she went home and had numbness of her face denies drooping. Nursing Sepsis Screen: No Definite Risk History of Present Illness Date Seen by Provider: Aug 08, 2020 Time Seen by Provider: 11:30 Initial Comments Patient is a 49-year-old female who presents to the emergency department today with a chief complaint of right facial numbness. Patient states that she had acute onset of the facial numbness today around 840 this morning. She states it happened after she received a shot of Decadron today in her primary care physician's office for swelling in her throat. Patient has been dealing with a "goiter" or swollen thyroid for the last several weeks. She is currently getting worked up by Dr. Mayo. Patient has had a CT scan of the neck to evaluate. She states that she is so swollen in her neck that she is having difficulty swallowing solid foods and tablets but can swallow liquids. Patient denies any fevers chills, shortness of breath. She has had a mild cough productive of some yellowish sputum with occasional red flecks of blood. Patient states with the right-sided facial numbness she also had an onset of a left-sided sharp headache. This is not the worst headache of her life and she is able to point specifically to the area of her scalp on the left where the headache occurs. Nothing makes the headache any better or any worse. Nothing has made the numbness any better or any worse. Patient denies any speech difficulties, vision problems, unilateral extremity numbness weakness or ti ngling. Patient denies any GI or symptoms. All other review of systems reviewed and negative except as stated. Timing/Duration: 1-3 Hours Severity: Mild Allergies and Home Medications Allergies Coded Allergies: estradiol (Unverified Allergy, Severe, RASH/TIA, 11/14/19) Penicillins (Unverified Allergy, Mild, Hives, 06/28/19) povidone-iodine (Unverified Allergy, Mild, Hives, 06/28/19) Home Medications Albuterol Sulfate 1 Puff Puff, 2 PUFF INH QID PRN for SHORTNESS OF BREATH, (Repo rted) Apixaban 5 Mg Tablet, 5 MG PO BID, (Reported) Atorvastatin Calcium 10 Mg Tablet, 10 MG PO HS, (Reported) Famotidine 20 Mg Tablet, 20 MG PO BID, (Reported) Fluoxetine HCl 20 Mg Capsule, 20 MG PO DAILY, (Reported) Fluticasone/Vilanterol 1 Each Blst.w.dev, 1 EACH IH DAILY, (Reported) Gabapentin 600 Mg Tablet, 1,200 MG PO TID, (Reported) TAKES 2 (600MG) TABLETS Hydroxyzine HCl 25 Mg Tablet, 25 MG PO Q8H, (Reported) Metformin HCl 1,000 Mg Tablet, 1,000 MG PO BID, (Reported) Nitrofurantoin Monohyd/M-Cryst 100 Mg Capsule, 1 TAB PO BID Prescribed by: LAURENCE TILLMAN on 02/03/20 1638 Omeprazole 40 Mg Capsule.dr, 40 MG PO DAILY, (Reported) Promethazine HCl 12.5 Mg Tablet, 25 MG PO Q6H, (Reported) Propranolol HCl 120 Mg Cap.sa.24h, 120 MG PO DAILY, (Reported) Tizanidine HCl 2 Mg Tablet, 6 MG PO HS, (Reported) Topiramate 50 Mg Tablet, 150 MG PO BID, (Reported) TAKES 3 (50MG) TABLETS Patient Home Medication List Home Medication List Reviewed: Yes Review of Systems Review of Systems Constitutional: see HPI EENTM: throat swelling Respiratory: cough Cardiovascular: no symptoms reported Gastrointestinal: no symptoms reported Genitourinary: no symptoms reported Musculoskeletal: no symptoms reported Skin: no symptoms reported Psychiatric/Neurological: Numbness (right facial) Hematologic/Lymphatic: No Symptoms Reported Past Fpjizgq-Hypsgm-Mrscvu Hx Patient Social History Alcohol Use: Denies Use Smoking Status: Former Smoker Type Used: Cigarettes Former Smoker, Quit: Aug 05, 2020 2nd Hand Smoke Exposure: Yes Recent Infectious Disease Expo: No Recent Hopitalizations: No Immunizations Up To Date PED Vaccines UTD: Yes Date of Pneumonia Vaccine: Apr 18, 2018 Date of Influenza Vaccine: Apr 18, 2002 Seasonal Allergies Seasonal Allergies: No Past Medical History Surgeries: Yes (heart cath- 2019 no stent placed, NICOLE KNEE SCOPES, R ARM-[place] PLACED) Cardiac, Gallbladder, 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, Oophorectomy, Orthopedic, 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 Respiratory: Yes Sleep Apnea, COPD Currently Using CPAP: Yes Currently Using BIPAP: No Cardiac: Yes (HEART CATH-NO STENTS, paroxysmal a-fib) Atrial Fibrillation, High Cholesterol, Hypertension Neurological: Yes (botox for migraines 11/20/19) Concussion, Headaches /Migraines, TIA, Traumatic Brain Injury Reproductive Disorders: No (1 OVARY REMOVED, TUBES TIED ) Female Reproductive Disorders: Denies 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: 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, 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 Sexually Transmitted Disease: No HIV/AIDS: No Genitourinary: Yes Kidney Stones Gastrointestinal: Yes Gastroesophageal Reflux, Chronic Diarrhea Musculoskeletal: Yes (BILAT KNEE SCOPES) Arthritis, Chronic Back Pain Endocrine: Yes (NON-COMPLIANT) Diabetes, Non-Insulin dep HEENT: Yes (GLASSES, MISSING SOME TEETH) Loss of Vision: Denies Cancer: No Psychosocial: Yes (EXTENSIVE PSYCH ISSUES) Anxiety, Depression Integumentary: Yes ("HAS SORES FROM RASH FROM ESTROGEN") Blood Disorders: Yes (ANEMIA) Adverse Reaction/Blood Tranf: No (N/A) Family Medical History Myocardial infarction GRANDMOTHER AUNT GRANDFATHER Seizure disorder Stroke 19 MOTHER GRANDMOTHER AUNT MATERNAL GRANDFATHER No Pertinent Family Hx Physical Exam Vital Signs Vital Signs - First Documented 08/08/20 10:19 Temp 36.6 Pulse 72 Resp 18 B/P (MAP) 130/87 (101) Pulse Ox 98 O2 Delivery Room Air Capillary Refill : Less Than 3 Seconds Height, Weight, BMI Height: 5'0" Weight: 303lbs. 6.0oz. 137.675997ky; 298.00 BMI Method:Stated General Appearance: No Apparent Distress, WD/WN Eyes: Bilateral Eye Normal Inspection, Bilateral Eye PERRL, Bilateral Eye EOMI HEENT: Normal ENT Inspection, Pharynx Normal Neck: Full Range of Motion, Supple, Thyromegaly Respiratory: Lungs Clear, Normal Breath Sounds, No Accessory Muscle Use, No Respiratory Distress Cardiovascular: Regular Rate, Rhythm Gastrointestinal: Normal Bowel Sounds, Non Tender, Soft Extremity: Normal Capillary Refill, Normal Inspection, Normal Range of Motion, Non Tender Neurologic/Psychiatric: Alert, Oriented x3, No Motor/Sensory Deficits, Normal Mood/Affect, territory supervisor II-XII Norm as Tested Skin: Normal Color, Warm/Dry Progress/Results/Core Measures Suspected Sepsis Recent Fever Within 48 Hours: No Infection Criteria Present: None New/Unexplained Altered Menta: No Sepsis Screen: No Definite Risk SIRS Temperature: Pulse: 72 Respiratory Rate: 18 Blood Pressure 130 /87 Mean: 101 Results/Orders My Orders Orders - SARA ROSE MD Ct Head Wo (08/08/20 11:20) Vital Signs/I&O 08/08/20 10:19 Temp 36.6 Pulse 72 Resp 18 B/P (MAP) 130/87 (101) Pulse Ox 98 O2 Delivery Room Air Capillary Refill : Less Than 3 Seconds Blood Pressure Mean: 101 Progress Note : Time: 12:54 Progress Note Patient reevaluated. She continues to have a little right-sided numbness. The patient however would like to be discharged so that she can make her appointment with Dr. Mayo at 2:00pm. Patient continues to complain of a mild left-sided sharp headache. This is not debilitating. Offered the patient a shot of Toradol to alleviate that pain and she is agreeable. Patient has no other focal neurologic deficits save the right-sided facial numbness. She has no speech difficulties no unilateral weakness numbness or tingling of the extremities, no vision difficulties. I have counseled patient on follow-up and advised that she check back into the ER after her appointment if she is continuing to experience numbness or any other emergent concerns. She is agreeable with the plan of care and again request to be discharged so that she can keep her appointment at 2:00. She verbalizes understanding of all of the above. All questions are sought and answered and she is stable for discharge. Diagnostic Imaging Diagonstic Imaging: CT Plain Films/CT/US/NM/MRI: head Comments [facility], [place] NAME: EUGENE FUENTES [facility] REC#: [id number] PT STATUS: REG ER : 1970 PHYSICIAN: SARA ROSE MD ADMIT DATE: 08/08/20/ER Draft Date of Exam:08/08/20 CT HEAD WO Clinical Indication: Patient with pain to the right side of head after pain shot was given. Exam: Axial CT scan of the brain without IV contrast with coronal and sagittal reformatted images. Auto Exposure Controls were utilized during the CT exam to meet ALARA standards for radiation dose reduction. Comparison: Head CT without contrast dated 09/12/2019. Findings: There is skull streak artifact which obscures portions of the brainstem, posterior fossa, and portions of the brain near the skull base. There is no evidence of acute cerebral infarct, intracranial hemorrhage, or gross mass effect. The brain parenchymal volume appears appropriate for patient's age. There is normal scales-white matter distinction. There is no significant midline shift or herniation. There is no evidence of hydrocephalus. The basal cisterns are unremarkable. The skull, extracranial soft tissue, and orbits are unremarkable. Incompletely imaged minimal mucosal thickening in the right maxillary sinus. Temporal bones show no significant abnormality. Impression: There is minimal right maxillary sinus disease. Otherwise, unremarkable CT scan of the brain for age. Dictated on workstation # [id number] Dict: 08/08/20 1225 Trans: 08/08/20 1232 [facility] [id number] Interpreted by: MARISELA EDWARD MD Electronically signed by: Departure Impression Primary Impression: Headache Qualified Codes: R51.9 - Headache, unspecified Additional Impression: Paresthesia Disposition: 01 HOME, SELF-CARE Condition: Stable Departure-Patient Inst. Decision time for Depature: 12:56 Referrals: OBINNA HARDING MD (PCP/Family) Primary Care Physician Patient Instructions: Headache, Adult, Paresthesia (DC) Add. Discharge Instructions: Continue your home daily medications as prescribed and as you can tolerate with your swallowing difficulties. Please keep your follow-up appointments with your primary doctor and your surgeon. Please come back to the emergency department if the numbness is persistent or you have any other new emergent concerning complaints. All discharge instructions reviewed with patient and/or family. Voiced understanding. SARA ROSE MD Aug 08, 2020 12:48
[2020-08-08] MEDS ORDERED: KETOROLAC 30 MG/ML VIAL IM ONE (13:00)
[2020-08-08 13:11] VITALS: BP 130/87
== END 2020-08-08 13:11 | disposition home or self-care (01) ==
LOC: EDUNIT# 10:05 → ER 10:13
DX: R51.9 Headache, unspecified (principal); R20.2 Paresthesia of skin; I10 Essential (primary) hypertension; I48.0 Paroxysmal atrial fibrillation; K21.9 Gastro-esophageal reflux disease without esophagitis; J44.9 Chronic obstructive pulmonary disease, unspecified; E78.00 Pure hypercholesterolemia, unspecified; F41.9 Anxiety disorder, unspecified; F32.9 Major depressive disorder, single episode, unspecified; E11.9 Type 2 diabetes mellitus without complications; Z91.041 Radiographic dye allergy status; Z88.0 Allergy status to penicillin; Z88.8 Allergy status to other drugs, medicaments and biological substances; Z87.891 Personal history of nicotine dependence; Z95.9 Presence of cardiac and vascular implant and graft, unspecified; Z86.73 Personal history of transient ischemic attack (TIA), and cerebral infarction without residual deficits; Z82.49 Family history of ischemic heart disease and other diseases of the circulatory system; Z79.01 Long term (current) use of anticoagulants; Z79.84 Long term (current) use of oral hypoglycemic drugs
CPT/HCPCS: 70450

== ENCOUNTER 2020-08-08 14:42 | Day surgery (SDC) | payer MEDICARE, MEDICAID ==
[~2020-08-08] VITALS: Ht 166.4 cm; Wt 135.2 kg
[2020-08-08 15:00] VITALS: BP 142/67
[2020-08-08] MEDS ORDERED: LACTATED RINGERS 1,000 ML IV STA (15:20)
[2020-08-08] MEDS ORDERED: HURRICAINE EXT TUBE (BENZOCAINE) XX PRN (15:30)
[2020-08-08] MEDS ORDERED: proPOfol 200 MG/20 ML (DIPRIVAN) VIAL IV ONE ×2 (16:08→16:35)
[2020-08-08] MEDS ORDERED: KETAMINE/NaCl 50 MG/5 ML SYRINGE (ED ONLY) ONE (16:13)
[2020-08-08] MEDS ORDERED: HURRICAINE EXT TUBE (BENZOCAINE) ONE (16:26)
[2020-08-08 16:45] VITALS: BP 91/66
--- NOTE | 2020-08-08 16:45 | Progress Note-Post Operative ---
Post-Operative Progess Note Surgeon (s)/Linking Machine Operator (s) Surgeon MELANI PLASCENCIA DO Linking Machine Operator: none Pre-Operative Diagnosis Hematemesis, Dysphagia, Dysphonia, thryoid nodule Post-Operative Diagnosis same plus Gastritis hiatal hernia Procedure & Operative Findings Date of Procedure 08/08/20 Procedure Performed/Findings EGD Anesthesia Type IV sedation by EARLY CHILDHOOD COORDINATOR Estimated Blood Loss Estimated blood loss (mL): none Specimens/Packing Specimens Removed none MELANI PLASCENCIA DO Aug 08, 2020 16:45
--- NOTE | 2020-08-08 16:46 | Endoscopy Discharge Instruct ---
Endo Procedure/Findings Findings 1.: Gastritis 2.: Hiatal Hernia Discharge Instructions - Activity: You might feel a little sleepy until tomorrow. This is due to the medicine you received to relax you. Until tomorrow, you should: NOT drive a car, operate machinery or power tools. NOT drink any alcoholic beverages. NOT make any important decisions or sign importortant papers. Do not return to work until tomorrow, unless otherwise instructed. Resume previous activities tomorrow. Diet: Start by taking liquids. If you tolerate liquids, advance to solid food. 1.: EGD in 3 years Notify Physician - If you experience excessive bleeding, unusual abdominal pain, fever, or chest pain, contact your doctor immediately. MELANI PLASCENCIA DO Aug 08, 2020 16:45
[2020-08-08 17:10] VITALS: BP 126/60
[2020-08-08 17:15] VITALS: BP 126/60
--- NOTE | 2020-08-08 22:29 | OPERATIVE REPORT ---
DATE OF SERVICE: PREOPERATIVE DIAGNOSES: Hematemesis, dysphagia, dysphonia and large thyroid nodule, possibly causing some tracheal deviation. POSTOPERATIVE DIAGNOSES: Hematemesis, dysphagia, dysphonia and large thyroid nodule, possibly causing some tracheal deviation, gastritis, small hiatal hernia. PROCEDURE: EGD. SURGEON: Phil Mayo DO FISH HATCHERY LABORER: None. ANESTHESIA: IV sedation by the DIRECTOR OF SURGERY. SPECIMEN: None. BLOOD LOSS: None. FLUIDS: Per anesthesia. POSTOPERATIVE CONDITION: Stable. INDICATION FOR PROCEDURE: The patient is a 49-year-old female who has been having increasing trouble swallowing. States she can only do liquids now. She also become hoarse. She had a CT scan, which showed a mass in the right thyroid with possible tracheal deviation and then she had hematemesis this morning, was actually in the ER today because of numbness of the right face, but was discharged from there. FINDINGS: The patient had actually saw some blood in the stomach but could not find any source. She had a small hiatal hernia and she had some mild gastritis. PROCEDURE NOTE: After informed consent was obtained, the patient was brought to the endoscopy suite, placed in bed in left lateral decubitus position. She was administered IV sedation by the DIRECTOR OF SURGERY who monitored her vitals the entire time, heart rate, blood pressure and pulse ox and we placed the scope down the mouth; took a picture of the vocal cords, they looked fine. Pushed into the esophagus without any difficulty at all. Pushed all the way down into the stomach, pushed through into the small intestine. The small intestine looked fine. Antrum showed some mild gastritis. Retroflexed the scope, saw a small hiatal hernia, but did not see any ulcers. Dilated the stomach to the large as we could get it, did not see any ulcers. No signs of bleeding. There was some what looked like little bloody flecks in the stomach, but could not find any source. At this point, suctioned all the air out of stomach, pulled the scope into the GE junction, took another picture of this hiatal hernia. Again, did not see any bleeding or ulcerations here and then pulled the scope up the esophagus, took pictures on the way up, again the esophagus looked normal and at that top just behind the vallecula, also looked normal, did not see anything. Pulled the scope out of the mouth and the patient was recovered in endoscopy suite. She tolerated the procedure. Job ID: [id number] DocumentID: [id number] Dictated Date: 08/08/2020 17:03:38 Medical Sales Date: 08/08/2020 22:28:14 Dictated By: PHIL MAYO DO
--- NOTE | 2020-08-12 11:55 | Anesthesia-General Post-Op ---
MAC Significant Intra-Op Events Notes late entry08/08/20@1715 Patient Condition Mental Status/LOC: Same as Preop Cardiovascular: Satisfactory Nausea/Vomiting: Absent Respiratory: Satisfactory Pain: Controlled Complications: Absent Post Op Complications Complications None Follow Up Care/Instructions Patient Instructions None needed. Anesthesiology Discharge Order Discharge Order Patient is doing well, no complaints, stable vital signs, no apparent adverse anesthesia problems. No complications reported per nursing. BETH MARTINEZ CRNA Aug 12, 2020 11:55
== END 2020-08-08 17:15 | disposition home or self-care (01) ==
LOC: ENDO 14:42
PROVIDERS: ATTEND Surgery
DX: K92.0 Hematemesis (principal); R49.0 Dysphonia; E04.1 Nontoxic single thyroid nodule; K44.9 Diaphragmatic hernia without obstruction or gangrene; K29.70 Gastritis, unspecified, without bleeding; I10 Essential (primary) hypertension; G47.33 Obstructive sleep apnea (adult) (pediatric); I48.91 Unspecified atrial fibrillation; E11.9 Type 2 diabetes mellitus without complications; D64.9 Anemia, unspecified; G89.29 Other chronic pain; M54.5 Low back pain; E78.00 Pure hypercholesterolemia, unspecified; E66.01 Morbid (severe) obesity due to excess calories; Z68.42 Body mass index [BMI] 45.0-49.9, adult; F17.210 Nicotine dependence, cigarettes, uncomplicated; Z79.01 Long term (current) use of anticoagulants; Z79.51 Long term (current) use of inhaled steroids; Z79.899 Other long term (current) drug therapy; Z88.0 Allergy status to penicillin; Z91.041 Radiographic dye allergy status; Z88.8 Allergy status to other drugs, medicaments and biological substances; Z91.048 Other nonmedicinal substance allergy status; Z86.73 Personal history of transient ischemic attack (TIA), and cerebral infarction without residual deficits; Z20.828 Contact with and (suspected) exposure to other viral communicable diseases
CPT/HCPCS: 43235; 82962; U0002; 87635

== ENCOUNTER 2020-09-14 18:35 | Emergency (ER) | payer MEDICAID, MEDICARE ==
[~2020-09-14] VITALS: Ht 170 cm; Wt 147.0 kg
[~2020-09-14 18:35] MED LIST changes: -HYDR50TA3 PO; +HYDR50TA6 PO
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
--- NOTE | 2020-09-14 19:51 | Diagnostic Imaging Report ---
PROCEDURE: CT head and CT cervical spine without contrast. TECHNIQUE: Multiple contiguous axial images were obtained through the brain and cervical spine without the use of intravenous contrast. Sagittal and coronal reformations through the cervical spine were then performed. Auto Exposure Controls were utilized during the CT exam to meet ALARA standards for radiation dose reduction. INDICATION: Posterior head and neck pain, fall. COMPARISON: 08/08/2020. FINDINGS: CT head: The ventricles and cortical sulci are age-appropriate. There is no midline shift or mass effect. No acute intracranial hemorrhage is seen. There is no CT evidence of acute territorial ischemia. The calvarium appears intact. Visualized paranasal sinuses are clear. A fluid collection is seen at the posterior scalp, likely a cyst. CT cervical spine: There is mild reversal of the cervical lordosis centered at C4. There are moderate degenerative changes at C4-C5 and C5-C6. There is artifact in the lower cervical spine resulting in suboptimal evaluation. No fracture is seen. No bony fragment or hyperdense fluid collection is seen in the spinal canal. Soft tissues about the neck demonstrate no acute abnormality. IMPRESSION: 1. No acute intracranial hemorrhage or CT evidence of acute territorial ischemia. 2. Degenerative changes in the cervical spine with no acute fracture identified. Dictated by: Dictated on workstation # [id number]
--- NOTE | 2020-09-14 19:52 | Diagnostic Imaging Report ---
PROCEDURE: CT thoracic and lumbar spine without contrast. TECHNIQUE: Multiple contiguous axial images were obtained through the thoracic and lumbar spine without the use of intravenous contrast. Sagittal and coronal reformations were then performed. All CT scans use one or more of the following dose optimizing techniques: automated exposure control, MA and/or KvP adjustment based on patient size and exam type or iterative reconstruction. INDICATION: Back pain after fall. COMPARISON: MRI of the lumbar spine from 2018. FINDINGS: CT thoracic spine: Alignment of the thoracic spine appears normal. Vertebral body heights are preserved. There is mild multilevel degenerative change throughout the thoracic spine. No bony fragment or hyperdense fluid collection is seen in the spinal canal. There is a small calcification from a disc bulge at T9-T10. CT lumbar spine: Alignment of the lumbar spine appears normal. There are degenerative changes in the lumbar spine, most severe at L3-L4. Vertebral body heights are preserved. No fracture is seen. As in the other CTs, images are suboptimal due to body habitus. Soft tissues about the lumbar spine demonstrate no acute abnormality. IMPRESSION: Degenerative changes in the lumbar spine with no acute fracture seen. Dictated by: Dictated on workstation # [id number]
--- NOTE | 2020-09-14 19:59 | Diagnostic Imaging Report ---
HISTORY: Fall, trauma. TECHNIQUE: Frontal view of the chest. COMPARISON: 09/09/2019. FINDINGS: Lung volumes are normal. No focal consolidation is seen. There is no pleural effusion or pneumothorax. The cardiac silhouette is normal in size. A cardiac tech device is noted. There is fixation hardware in the right humerus and there appears to be a fracture of the humerus. IMPRESSION: 1. No acute pulmonary abnormality. 2. Fixation hardware of the right humerus with suspected fracture. Please refer to dedicated radiograph. Dictated by: Dictated on workstation # [id number]
--- NOTE | 2020-09-14 20:00 | Diagnostic Imaging Report ---
HISTORY: Fall, trauma to the right arm. TECHNIQUE: 3 views of the right elbow. COMPARISON: None. FINDINGS: There is internal fixation of the right humerus with a long femoral lazaro. There is a fracture of the proximal to mid right humerus which appears to be chronic. No new fracture is seen and alignment appears normal. No hardware loosening is seen. IMPRESSION: Internal fixation of the right humerus with no hardware complication seen. Old fracture remains visible but no new fracture is identified. Dictated by: Dictated on workstation # [id number]
--- NOTE | 2020-09-14 20:05 | Diagnostic Imaging Report ---
HISTORY: Fall, left arm pain. TECHNIQUE: 2 views of the right humerus. COMPARISON: None. FINDINGS: There is internal fixation of the right humerus with a long humeral lazaro. There is loosening about the distal screw. There is a fracture of the mid humerus with deformity which appears to be chronic, however, there does not appear to be bony bridging. A new fracture is thought less likely, but difficult to exclude. Fragments appear similar to the 08/29/2016 exam. IMPRESSION: 1. Old fracture of the right humerus with fragments appearing similar to the prior study. There does not appear to be bony bridging but there is long intramedullary internal fixation. 2. The distal femoral lazaro and interlocking screw demonstrate surrounding lucency consistent with loosening. No definite acute fracture is seen. Dictated by: Dictated on workstation # [id number]
--- NOTE | 2020-09-14 20:06 | Diagnostic Imaging Report ---
HISTORY: Pelvic pain, fall. TECHNIQUE: Frontal view of the pelvis. FINDINGS: No acute fracture or dislocation is seen in the pelvis. Alignment is normal. Joint spaces are preserved. There are degenerative changes in the lumbar spine. IMPRESSION: No acute osseous abnormality is seen on this single view of the pelvis. Dictated by: Dictated on workstation # [id number]
--- NOTE | 2020-09-14 20:06 | Diagnostic Imaging Report ---
HISTORY: Fall, right elbow pain. TECHNIQUE: 3 views of the right elbow. COMPARISON: None. FINDINGS: No acute fracture or dislocation is seen in the right elbow. There is an intramedullary lazaro in the humerus, with a distal interlocking screw which has significant surrounding lucency consistent with loosening. Alignment of the elbow appears normal and no joint effusion is seen. IMPRESSION: 1. No acute fracture is seen in the right elbow. 2. Loosening is seen about the distal humeral lazaro. Dictated by: Dictated on workstation # [id number]
--- NOTE | 2020-09-14 20:07 | Diagnostic Imaging Report ---
HISTORY: Fall, right femur pain. TECHNIQUE: 2 views of the right femur. FINDINGS: No acute fracture or dislocation is seen in the right femur. Alignment is normal and joint spaces are preserved. IMPRESSION: No acute osseous abnormality is seen in the right femur. Dictated by: Dictated on workstation # [id number]
--- NOTE | 2020-09-14 20:08 | Diagnostic Imaging Report ---
HISTORY: Fall, bilateral knee pain. TECHNIQUE: 3 views of the bilateral knees. FINDINGS: No acute fracture or dislocation is seen in the bilateral knees. Alignment appears normal. There are mild degenerative changes in the bilateral knees. There is irregularity of the left fibular head which may be from remote trauma. There is no significant joint effusion. IMPRESSION: Mild degenerative changes in the bilateral knees with no acute osseous abnormality seen. Dictated by: Dictated on workstation # [id number]
[2020-09-14 20:45] VITALS: BP 122/76
== END 2020-09-14 20:46 | disposition home or self-care (01) ==
LOC: EDUNIT# 18:35 → ER 18:38
DX: S09.90XA Unspecified injury of head, initial encounter (principal); S39.012A Strain of muscle, fascia and tendon of lower back, initial encounter; S16.1XXA Strain of muscle, fascia and tendon at neck level, initial encounter; S80.01XA Contusion of right knee, initial encounter; S80.02XA Contusion of left knee, initial encounter; G89.29 Other chronic pain; M25.511 Pain in right shoulder; M25.521 Pain in right elbow; M79.651 Pain in right thigh; I10 Essential (primary) hypertension; I48.91 Unspecified atrial fibrillation; E11.9 Type 2 diabetes mellitus without complications; E78.00 Pure hypercholesterolemia, unspecified; F32.9 Major depressive disorder, single episode, unspecified; F41.9 Anxiety disorder, unspecified; G47.30 Sleep apnea, unspecified; G43.909 Migraine, unspecified, not intractable, without status migrainosus; K21.9 Gastro-esophageal reflux disease without esophagitis; E66.01 Morbid (severe) obesity due to excess calories; J44.9 Chronic obstructive pulmonary disease, unspecified; F17.210 Nicotine dependence, cigarettes, uncomplicated; Z86.73 Personal history of transient ischemic attack (TIA), and cerebral infarction without residual deficits; Z88.0 Allergy status to penicillin; Z88.8 Allergy status to other drugs, medicaments and biological substances; Z91.14 Patient's other noncompliance with medication regimen; Z79.01 Long term (current) use of anticoagulants; Z79.51 Long term (current) use of inhaled steroids; Z79.84 Long term (current) use of oral hypoglycemic drugs; Z95.9 Presence of cardiac and vascular implant and graft, unspecified; W06.XXXA Fall from bed, initial encounter; Y92.009 Unspecified place in unspecified non-institutional (private) residence as the place of occurrence of the external cause
CPT/HCPCS: 70450; 71045; 72125; 72128; 72131; 72170; 73030; 73060; 73080; 73552

== ENCOUNTER 2020-09-22 15:11 | Emergency (ER) | payer MEDICAID ==
[~2020-09-22] VITALS: Ht 165.1 cm; Wt 134.2 kg
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
[2020-09-22] MEDS ORDERED: ONDANSETRON 4 MG/2 ML (SDV) Z0FRAN IVP ONE (15:30)
[2020-09-22] MEDS ORDERED: fentaNYL INJECTION 100 MCG/2 ML AMP IVP ONE (15:30)
--- NOTE | 2020-09-22 16:03 | Diagnostic Imaging Report ---
PROCEDURE: CT abdomen and pelvis without contrast. TECHNIQUE: Multiple contiguous axial images were obtained through the abdomen and pelvis without the use of intravenous contrast. Auto Exposure Controls were utilized during the CT exam to meet ALARA standards for radiation dose reduction. INDICATION: Lower abdominal pain. CORRELATION STUDY: 06/19/2020. FINDINGS: LOWER THORAX: Clear. Heart size normal. Small hiatal hernia. LIVER: Borderline enlarged with likely mild steatosis. GALLBLADDER: Cholecystectomy. No overt bile ductal dilatation. SPLEEN: Unremarkable. Small splenule. PANCREAS: Unremarkable. ADRENAL GLANDS: Unremarkable. KIDNEYS: Asymmetric areas of scarring and/or atrophic change. Prominent calcifications in the mid superior pole of left kidney. Smaller volume calcification of right kidney. No ureteric calcification or obstructive uropathy. ABDOMINAL AORTA: Unremarkable, nonaneurysmal. GASTROINTESTINAL TRACT: Stomach is mildly distended with retained gastric contents. No small bowel obstruction. Mild stool retention of the colon. Normal appendix. Rather sizable midline ventral abdominal wall fat-containing hernia is again demonstrated. No inflammatory change. No entrapped bowel. URINARY BLADDER: Unremarkable. REPRODUCTIVE: Post hysterectomy. OSSEOUS STRUCTURES: Multilevel degenerative change present. Most severe at the L3-L4, L4-L5 and L5-S1 levels. OTHER: None. IMPRESSION: 1. Negative for acute abnormality of the abdomen or pelvis. 2. Large ventral fat-containing abdominal wall hernia. Unchanged from prior. 3. Bilateral nonobstructing renal stones, left greater than right. Dictated by: Dictated on workstation # [id number]
[2020-09-22 17:22] LABS: BASOPHILS # (AUTO) 0.1 10^3/uL (0.0-0.1); BASOPHILS % (AUTO) 1 % (0-10); EOSINOPHILS # (AUTO) 0.2 10^3/uL (0.0-0.3); EOSINOPHILS % (AUTO) 1 % (0-10); HEMATOCRIT 38 % (35-52); HEMOGLOBIN 11.1 g/dL (11.5-16.0); LYMPHOCYTES # (AUTO) 3.5 10^3/uL (1.0-4.0); LYMPHOCYTES % (AUTO) 24 % (12-44); MEAN CORPUSCULAR HEMOGLOBIN 20 pg (25-34); MEAN CORPUSCULAR HGB CONC 29 g/dL (32-36); MEAN CORPUSCULAR VOLUME 70 fL (80-99); MEAN PLATELET VOLUME 10.7 fL (9.0-12.2); MONOCYTES # (AUTO) 0.7 10^3/uL (0.0-1.0); MONOCYTES % (AUTO) 4 % (0-12); NEUTROPHILS # (AUTO) 10.2 10^3/uL (1.8-7.8); NEUTROPHILS % (AUTO) 69 % (42-75); PLATELET COUNT 351 10^3/uL (130-400); WHITE BLOOD COUNT 14.7 10^3/uL (4.3-11.0)
[2020-09-22 17:31] LABS: ALBUMIN 3.9 GM/DL (3.2-4.5)
[2020-09-22 17:32] LABS: CHLORIDE 110 MMOL/L (98-107); POTASSIUM 4.2 MMOL/L (3.6-5.0); SODIUM 139 MMOL/L (135-145)
[2020-09-22 17:33] LABS: CALCIUM 9.3 MG/DL (8.5-10.1)
[2020-09-22 17:34] LABS: GLUCOSE 111 MG/DL (70-105); TOTAL PROTEIN 7.6 GM/DL (6.4-8.2)
[2020-09-22 17:35] LABS: CARBON DIOXIDE 18 MMOL/L (21-32)
[2020-09-22 17:36] LABS: ANISOCYTOSIS MODERATE; BILIRUBIN,TOTAL 0.2 MG/DL (0.1-1.0); EOSINOPHILS % (MANUAL) 2 %; HYPOCHROMASIA SLIGHT; LYMPHOCYTES % (MANUAL) 26 %; MICROCYTOSIS MODERATE; MONOCYTES % (MANUAL) 3 %; NEUTROPHILS % (MANUAL) 69 %
[2020-09-22 17:38] LABS: ALKALINE PHOSPHATASE 108 U/L (40-136); CREATININE SERUM 0.91 MG/DL (0.60-1.30); GFR ESTIMATED > 60
[2020-09-22 17:39] LABS: BUN/CREATININE RATIO 18
[2020-09-22 17:41] LABS: ALANINE AMINOTRANSFERASE 24 U/L (0-55)
[2020-09-22 18:10] LABS: BILIRUBIN,URINE NEGATIVE (NEGATIVE); CLARITY,URINE CLEAR; COLOR,URINE YELLOW; GLUCOSE, URINE (UA) NEGATIVE (NEGATIVE); KETONES,URINE NEGATIVE (NEGATIVE); LEUKOCYTE ESTERASE ,URINE TRACE (NEGATIVE); NITRITE,URINE NEGATIVE (NEGATIVE); PROTEIN,URINE NEGATIVE (NEGATIVE)
[2020-09-22 18:22] LABS: BACTERIA,URINE TRACE /HPF
[2020-09-22 18:23] LABS: YEAST,URINE FEW /HPF
[2020-09-22] MEDS ORDERED: RX-ONDANSETRON 4 MG ODT (ZOFRAN) PPK #4 PO STA (18:26)
[2020-09-22] MEDS ORDERED: RX-NITROFURANTOIN 100 MG (MACROBID) CAP PPK#2 PO STA (18:26)
[2020-09-22] MEDS ORDERED: PHEN-640 PO (18:30)
[2020-09-22] MEDS ORDERED: NITR-65 PO (18:30)
[2020-09-22] MEDS ORDERED: PANT40TA2 PO (18:30)
[2020-09-22] MEDS ORDERED: ONDA4TAB11 PO (18:30)
[2020-09-22 18:45] VITALS: BP 125/94
== END 2020-09-22 18:45 | disposition home or self-care (01) ==
LOC: EDUNIT# 15:13 → ER 15:14
DX: N39.0 Urinary tract infection, site not specified (principal); K43.9 Ventral hernia without obstruction or gangrene; I10 Essential (primary) hypertension; J44.9 Chronic obstructive pulmonary disease, unspecified; G47.30 Sleep apnea, unspecified; I48.0 Paroxysmal atrial fibrillation; E78.00 Pure hypercholesterolemia, unspecified; K21.9 Gastro-esophageal reflux disease without esophagitis; E11.9 Type 2 diabetes mellitus without complications; F41.9 Anxiety disorder, unspecified; F32.9 Major depressive disorder, single episode, unspecified; D64.9 Anemia, unspecified; G43.909 Migraine, unspecified, not intractable, without status migrainosus; E66.9 Obesity, unspecified; F17.210 Nicotine dependence, cigarettes, uncomplicated; Z87.442 Personal history of urinary calculi; Z68.43 Body mass index [BMI] 50.0-59.9, adult; Z91.19 Patient's noncompliance with other medical treatment and regimen; Z95.9 Presence of cardiac and vascular implant and graft, unspecified; Z99.89 Dependence on other enabling machines and devices; Z86.73 Personal history of transient ischemic attack (TIA), and cerebral infarction without residual deficits; Z88.8 Allergy status to other drugs, medicaments and biological substances; Z88.0 Allergy status to penicillin; Z79.01 Long term (current) use of anticoagulants; Z79.51 Long term (current) use of inhaled steroids; Z79.84 Long term (current) use of oral hypoglycemic drugs
CPT/HCPCS: 36415; 74176; 80053; 81000; 85007; 85027; 86141; 87088

== ENCOUNTER 2020-09-24 12:54 | Outpatient (RCR) | payer MEDICARE, MEDICAID ==
[~2020-09-24 12:54] MED LIST changes: +ONDA4TAB11 PO
[2020-12-13] MEDS ORDERED: ATOR20TA66 PO (08:32)
[2020-12-13] MEDS ORDERED: PREG75CA75 PO (08:32)
[2020-12-13] MEDS ORDERED: FLUO20CA46 PO (08:32)
[2020-12-13] MEDS ORDERED: PANT40TA52 PO (08:32)
[2020-12-13] MEDS ORDERED: UBRO50TA PO (08:32)
[2020-12-13] MEDS ORDERED: PROM25TA14 PO (08:32)
[2020-12-13] MEDS ORDERED: ACET-2267 PO (08:32)
[2020-12-13] MEDS ORDERED: CALC10009 PO (08:32)
[2020-12-13] MEDS ORDERED: FAMO20TA5 PO (08:32)
[2020-12-13] MEDS ORDERED: FLUT1BLS INH (08:36)
[2020-12-13] MEDS ORDERED: LEVE10006 PO (08:36)
[2020-12-13] MEDS ORDERED: EREN70AU2 INJ (08:45)
[2020-12-13] MEDS ORDERED: GALC120P INJ (08:45)
[2020-12-13] MEDS ORDERED: ACHD5005 PO (12:51)
[2020-12-19] MEDS ORDERED: APIX5TAB PO (11:43)
== END 2020-12-17 09:51 | disposition home or self-care (01) ==
LOC: ONC 12:54
PROVIDERS: ATTEND Internal Medicine Hematology & Oncology
DX: D50.0 Iron deficiency anemia secondary to blood loss (chronic) (principal); K29.31 Chronic superficial gastritis with bleeding; E66.01 Morbid (severe) obesity due to excess calories; E04.9 Nontoxic goiter, unspecified; F31.9 Bipolar disorder, unspecified; G89.29 Other chronic pain; M54.9 Dorsalgia, unspecified; F50.9 Eating disorder, unspecified; D12.2 Benign neoplasm of ascending colon; D12.5 Benign neoplasm of sigmoid colon; K64.8 Other hemorrhoids; G47.33 Obstructive sleep apnea (adult) (pediatric); I48.0 Paroxysmal atrial fibrillation; G47.36 Sleep related hypoventilation in conditions classified elsewhere; J98.4 Other disorders of lung; F09 Unspecified mental disorder due to known physiological condition; K20.90 Esophagitis, unspecified without bleeding; E11.9 Type 2 diabetes mellitus without complications; K44.9 Diaphragmatic hernia without obstruction or gangrene; Z86.73 Personal history of transient ischemic attack (TIA), and cerebral infarction without residual deficits; Z98.51 Tubal ligation status; Z90.721 Acquired absence of ovaries, unilateral; Z90.49 Acquired absence of other specified parts of digestive tract; Z98.890 Other specified postprocedural states; Z95.5 Presence of coronary angioplasty implant and graft; Z68.42 Body mass index [BMI] 45.0-49.9, adult; Z79.01 Long term (current) use of anticoagulants; Z79.899 Other long term (current) drug therapy; Z72.0 Tobacco use
CPT/HCPCS: 82728; 83540; 85025; G0463; 99213

== ENCOUNTER 2020-10-30 18:23 | Emergency (ER) | payer MEDICARE, MEDICAID ==
[~2020-10-30] VITALS: Ht 162 cm; Wt 134.0 kg
[2020-10-30] MEDS ORDERED: LACTATED RINGERS 1,000 ML IV ONE (18:30)
[2020-10-30] MEDS ORDERED: ONDANSETRON 4 MG/2 ML (SDV) Z0FRAN IVP ONE (18:30)
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
[2020-10-30 18:58] LABS: BASOPHILS # (AUTO) 0.1 10^3/uL (0.0-0.1); BASOPHILS % (AUTO) 1 % (0-10); EOSINOPHILS # (AUTO) 0.2 10^3/uL (0.0-0.3); EOSINOPHILS % (AUTO) 1 % (0-10); HEMATOCRIT 35 % (35-52); HEMOGLOBIN 10.3 g/dL (11.5-16.0); LYMPHOCYTES # (AUTO) 3.1 10^3/uL (1.0-4.0); LYMPHOCYTES % (AUTO) 21 % (12-44); MEAN CORPUSCULAR HEMOGLOBIN 20 pg (25-34); MEAN CORPUSCULAR HGB CONC 29 g/dL (32-36); MEAN CORPUSCULAR VOLUME 70 fL (80-99); MEAN PLATELET VOLUME 10.6 fL (9.0-12.2); MONOCYTES # (AUTO) 0.7 10^3/uL (0.0-1.0); MONOCYTES % (AUTO) 5 % (0-12); NEUTROPHILS % (AUTO) 73 % (42-75); PLATELET COUNT 433 10^3/uL (130-400); WHITE BLOOD COUNT 15.1 10^3/uL (4.3-11.0)
[2020-10-30 19:09] LABS: ALBUMIN 3.8 GM/DL (3.2-4.5); CHLORIDE 106 MMOL/L (98-107); POTASSIUM 4.1 MMOL/L (3.6-5.0); SODIUM 138 MMOL/L (135-145)
[2020-10-30 19:10] LABS: CALCIUM 9.3 MG/DL (8.5-10.1); PROTHROMBIN TIME PATIENT 13.1 SEC (12.2-14.7)
[2020-10-30 19:11] LABS: GLUCOSE 170 MG/DL (70-105); TOTAL PROTEIN 7.4 GM/DL (6.4-8.2)
[2020-10-30 19:12] LABS: CARBON DIOXIDE 19 MMOL/L (21-32)
[2020-10-30 19:13] LABS: BILIRUBIN,TOTAL 0.2 MG/DL (0.1-1.0)
[2020-10-30 19:15] LABS: ALKALINE PHOSPHATASE 112 U/L (40-136); CREATININE SERUM 0.91 MG/DL (0.60-1.30); GFR ESTIMATED > 60
[2020-10-30 19:16] LABS: BUN/CREATININE RATIO 16
[2020-10-30 19:18] LABS: ALANINE AMINOTRANSFERASE 22 U/L (0-55); MAGNESIUM 1.9 MG/DL (1.6-2.4)
--- NOTE | 2020-10-30 19:18 | Diagnostic Imaging Report ---
PROCEDURE: CT head w/o r/o stroke. TECHNIQUE: Multiple contiguous axial images were obtained through the brain without the use of intravenous contrast. Auto Exposure Controls were utilized during the CT exam to meet ALARA standards for radiation dose reduction. INDICATION: Migraine headache. COMPARISON: 09/14/2020. There has been development of low density throughout the left posterior parietal and occipital white matter. Focal rounded region of low density measures approximately 2.4 x 1.9 cm in the left occipital white matter and could represent area of infarct or necrosis. No acute hemorrhage is identified. Remainder of the study is stable and unremarkable in appearance. IMPRESSION: Development of abnormal low density in the left posterior white matter which could be the result of ischemia or encephalomalacia. More rounded region could represent area of infarct with cerebral abscess considered less likely. MRI would be useful for characterization. Dictated by: Dictated on workstation # [id number]
[2020-10-30 19:20] LABS: LYMPHOCYTES % (MANUAL) 14 %; MONOCYTES % (MANUAL) 10 %; NEUTROPHILS % (MANUAL) 76 %; RBC MORPH NORMAL
[2020-10-30 19:41] LABS: BILIRUBIN,URINE NEGATIVE (NEGATIVE); CLARITY,URINE CLEAR; COLOR,URINE YELLOW; GLUCOSE, URINE (UA) NEGATIVE (NEGATIVE); KETONES,URINE NEGATIVE (NEGATIVE); LEUKOCYTE ESTERASE ,URINE NEGATIVE (NEGATIVE); NITRITE,URINE NEGATIVE (NEGATIVE); PROTEIN,URINE NEGATIVE (NEGATIVE)
[2020-10-30] MEDS ORDERED: diphenhydrAMINE 50 MG/ML INJ (BENADRYL) IVP ONE (19:45)
[2020-10-30 19:49] LABS: BACTERIA,URINE NEGATIVE /HPF
[2020-10-30 19:52] LABS: AMPHETAMINE SCREEN, URINE NEGATIVE (NEGATIVE); BARBITURATE SCREEN URINE NEGATIVE (NEGATIVE); BENZODIAZEPINES SCREEN URINE NEGATIVE (NEGATIVE); CANNABINOID SCREEN, URINE NEGATIVE (NEGATIVE); COCAINE SCREEN URINE NEGATIVE (NEGATIVE); METHADONE STAT NEGATIVE (NEGATIVE); METHAMPHETAMINE SCREEN URINE S NEGATIVE (NEGATIVE); OPIATE SCREEN URINE NEGATIVE (NEGATIVE); OXYCODONE STAT NEGATIVE (NEGATIVE); PROPOXYPHENE STAT NEGATIVE (NEGATIVE); TRICYCLIC ANTIDEPRESSANTS SCRE NEGATIVE (NEGATIVE)
[2020-10-30] MEDS ORDERED: NS 100 ML (IVPB) BAG IV ONE (20:00)
[2020-10-30] MEDS ORDERED: CATHETER FLUSH 10 ML SYR IV PRN (20:00)
[2020-10-30] MEDS ORDERED: IOHEXOL 350 MG/ML 100 ML (OMNIPAQUE 350) VIAL IV ONE (20:00)
[2020-10-30] MEDS ORDERED: HOLD METFORMIN - RECEIVED CONTRAST 20 ML VIAL IV SCH (20:00)
[2020-10-30] MEDS ORDERED: KETOROLAC 30 MG/ML VIAL IVP ONE (20:15)
--- NOTE | 2020-10-30 20:48 | Diagnostic Imaging Report ---
PROCEDURE: CT angiography of the head and CT angiography of the neck with and without contrast. TECHNIQUE: Contiguous noncontrast images were obtained from the skull base through the vertex. After intravenous contrast administration, helical CT angiography of the neck was performed. Source data was reformatted into 3D MIP projections. Delayed post contrast acquisition was also obtained. Auto Exposure Controls were utilized during the CT exam to meet ALARA standards for radiation dose reduction. INDICATION: Abnormal results on noncontrasted CT in patient with migraine headache and light sensitivity. Patient was medicated with Benadryl because of previous contrast reaction. There is a normal three-vessel branching pattern arising from the aortic arch although there is very small left vertebral artery. Common carotid and internal carotid arteries are widely patent, diffusely. Vertebral arteries are also patent through the neck with right vertebral arterial dominance. There is an approximately 2.0 x 1.4 cm nodule in the subcutaneous fat posterior to the left occipital bone, which is nonspecific but could be related to sebaceous cyst. Within the head, there is normal opacification of anterior, middle and posterior cerebral arteries. The right posterior cerebral artery appears to be supplied by origin or very small right P1 segment. No aneurysm or vascular malformation is identified. Rounded region of possible encephalomalacia or cystic lesion is again seen in the left occipital lobe without significant change from study of earlier in the day. This was not seen on the CT study of 09/14/2020. IMPRESSION: No CTA evidence of great vessel abnormality in the head or neck. In particular, there is no evidence of occlusion, filling defect or stenosis to result in ischemia. The low density, possible cystic focus in the left occipital region could represent encephalomalacia or other developing cystic lesion and MRI would be helpful for characterization. Dictated by: Dictated on workstation # [id number]
[2020-10-30 21:40] VITALS: BP 120/60
== END 2020-10-30 21:40 | disposition home or self-care (01) ==
LOC: EDUNIT# 18:23 → ER 18:24
DX: R51.9 Headache, unspecified (principal); E66.01 Morbid (severe) obesity due to excess calories; J44.9 Chronic obstructive pulmonary disease, unspecified; I48.91 Unspecified atrial fibrillation; E78.00 Pure hypercholesterolemia, unspecified; I10 Essential (primary) hypertension; K21.9 Gastro-esophageal reflux disease without esophagitis; E11.9 Type 2 diabetes mellitus without complications; F32.9 Major depressive disorder, single episode, unspecified; F41.9 Anxiety disorder, unspecified; Z68.43 Body mass index [BMI] 50.0-59.9, adult; Z95.9 Presence of cardiac and vascular implant and graft, unspecified; Z88.0 Allergy status to penicillin; Z88.8 Allergy status to other drugs, medicaments and biological substances; Z77.22 Contact with and (suspected) exposure to environmental tobacco smoke (acute) (chronic); Z86.73 Personal history of transient ischemic attack (TIA), and cerebral infarction without residual deficits; Z79.01 Long term (current) use of anticoagulants; Z79.84 Long term (current) use of oral hypoglycemic drugs
CPT/HCPCS: 70450; 70496; 70498; 80053; 80306; 81000; 83735; 85007; 85027; 85610; 85730; 99284; G0480; 36415; 80320; 96361; 96374; 96375

== ENCOUNTER 2020-12-02 16:38 | Emergency (ER) | payer MEDICARE, MEDICAID ==
[~2020-12-02] VITALS: Ht 165.1 cm; Wt 135.0 kg
[2020-12-02 17:00] LABS: BASOPHILS # (AUTO) 0.1 10^3/uL (0.0-0.1); BASOPHILS % (AUTO) 1 % (0-10); EOSINOPHILS # (AUTO) 0.2 10^3/uL (0.0-0.3); EOSINOPHILS % (AUTO) 1 % (0-10); HEMATOCRIT 36 % (35-52); HEMOGLOBIN 10.7 g/dL (11.5-16.0); LYMPHOCYTES # (AUTO) 4.6 10^3/uL (1.0-4.0); LYMPHOCYTES % (AUTO) 35 % (12-44); MEAN CORPUSCULAR HEMOGLOBIN 20 pg (25-34); MEAN CORPUSCULAR HGB CONC 30 g/dL (32-36); MEAN CORPUSCULAR VOLUME 68 fL (80-99); MEAN PLATELET VOLUME 10.6 fL (9.0-12.2); MONOCYTES # (AUTO) 0.9 10^3/uL (0.0-1.0); MONOCYTES % (AUTO) 7 % (0-12); NEUTROPHILS # (AUTO) 7.5 10^3/uL (1.8-7.8); NEUTROPHILS % (AUTO) 56 % (42-75); PLATELET COUNT 422 10^3/uL (130-400); WHITE BLOOD COUNT 13.3 10^3/uL (4.3-11.0)
[2020-12-02 17:03] LABS: ALBUMIN 3.9 GM/DL (3.2-4.5)
[2020-12-02 17:04] LABS: CHLORIDE 110 MMOL/L (98-107); SODIUM 140 MMOL/L (135-145)
[2020-12-02 17:05] LABS: CALCIUM 9.1 MG/DL (8.5-10.1)
[2020-12-02 17:06] LABS: GLUCOSE 161 MG/DL (70-105); TOTAL PROTEIN 7.2 GM/DL (6.4-8.2)
[2020-12-02 17:07] LABS: CARBON DIOXIDE 19 MMOL/L (21-32)
[2020-12-02 17:08] LABS: BILIRUBIN,TOTAL 0.2 MG/DL (0.1-1.0); PROTHROMBIN TIME PATIENT 13.8 SEC (12.2-14.7)
[2020-12-02 17:09] LABS: ALKALINE PHOSPHATASE 91 U/L (40-136); FIBRIN DEGRADATION PRODUCTS 0.21 UG/ML (0.00-0.49)
[2020-12-02 17:10] LABS: CREATININE SERUM 0.96 MG/DL (0.60-1.30); GFR ESTIMATED > 60
[2020-12-02 17:11] LABS: BUN/CREATININE RATIO 15
[2020-12-02 17:13] LABS: ALANINE AMINOTRANSFERASE 21 U/L (0-55)
[2020-12-02] MEDS ORDERED: fentaNYL INJ 100 MCG/2 ML AMP IVP ONE (17:15)
--- NOTE | 2020-12-02 17:17 | Diagnostic Imaging Report ---
EXAMINATION: Portable erect AP chest at 5:14 PM INDICATION: CVA The heart size is within normal limits and stable when compared to 09/14/2020. The loop recorder device seen previously is again evident and no different. The lungs remain clear. There is still no sign of failure, pneumonia or pleural effusion to indicate an acute abnormality. The mediastinum is not widened. The osseous structures are intact. The orthopedic hardware overlying the right humerus seen previous is partially visualized on this exam. IMPRESSION: Stable chest. There has been no adverse change since the prior study. Dictated by: Dictated on workstation # [id number]
[2020-12-02 17:31] LABS: EOSINOPHILS % (MANUAL) 4 %; LYMPHOCYTES % (MANUAL) 37 %; MONOCYTES % (MANUAL) 9 %; NEUTROPHILS % (MANUAL) 50 %; RBC MORPH NORMAL
--- NOTE | 2020-12-02 17:45 | Diagnostic Imaging Report ---
PROCEDURE: CT head wo r/o stroke. TECHNIQUE: Multiple contiguous axial images were obtained through the brain without the use of intravenous contrast. Auto Exposure Controls were utilized during the CT exam to meet ALARA standards for radiation dose reduction. DATE: December 02, 2020. COMPARISON: October 30, 2020. INDICATION: 50-year-old female, right eye vision loss. Difficulty reading. Inappropriate laughter. Altered mental status. FINDINGS: There is a cystic lesion in the occipital scalp just to the left of midline measuring 18 x 11 mm in size. This is not specific. There is a higher than CSF attenuation although low attenuation lesion in the left parieto-occipital region measuring 4.2 x 3.2 x 3.9 cm in size. This previously measured 2.4 x 1.9 x 2.0 cm in size on October 30, 2020. There are adjacent areas of abnormal low-attenuation in the left parietal subcortical white matter. There is mass effect relating to the above-mentioned cystic-appearing masslike area. There is no hydrocephalus. There is no pronounced midline shift. There is no identified abnormal extra-axial fluid collection. There is no evidence of acute intracranial hemorrhage. The visualized portions of the paranasal sinuses, mastoid air cells, and middle ears are well-aerated. IMPRESSION: 1. Interval increase in size of the low-attenuation mass in the left parieto-occipital region since October 30, 2020 which does have associated mass effect and is not of CSF attenuation. This is concerning for a cystic neoplasm for which primary and metastatic lesions are in the differential diagnosis. An abscess is also in the differential diagnosis. Further evaluation with pre and postcontrast MRI of the brain is needed. 2. Abnormal low-attenuation in the left parietal subcortical white matter adjacent to the above mentioned mass which is nonspecific and could relate to adjacent edema. 3. Nonspecific cystic-appearing mass in the left occipital scalp. This is decreased in size since April 08, 2016. This may relate to an epidermal inclusion cyst or a sebaceous cyst although correlation with dermatologic exam is needed. Findings called at 1736 hours on December 02, 2020. Dictated by: Dictated on workstation # [id number]
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
[2020-12-02] MEDS ORDERED: morphine INJ 10 MG/ML 1ML (SYR OR VIAL) IVP STA (18:25)
[2020-12-02] MEDS ORDERED: LORazepam INJ 2 MG/ML (ATIVAN) VIAL IVP ONE (18:30)
[2020-12-02] MEDS ORDERED: LORazepam 0.5 MG (ATIVAN) TABLET PO STA (19:50)
[2020-12-02 20:34] LABS: BILIRUBIN,URINE NEGATIVE (NEGATIVE); CLARITY,URINE CLEAR; COLOR,URINE YELLOW; GLUCOSE, URINE (UA) NEGATIVE (NEGATIVE); KETONES,URINE NEGATIVE (NEGATIVE); LEUKOCYTE ESTERASE ,URINE TRACE (NEGATIVE); NITRITE,URINE NEGATIVE (NEGATIVE); PH,URINE 5.5 (5-9); PROTEIN,URINE NEGATIVE (NEGATIVE)
[2020-12-02 20:42] LABS: BACTERIA,URINE NEGATIVE /HPF
[2020-12-02 20:43] LABS: YEAST,URINE FEW /HPF
[2020-12-02 21:35] VITALS: BP 120/91
== END 2020-12-02 21:34 | disposition short-term general hospital (02) ==
LOC: EDUNIT# 16:38 → ER 16:39
DX: G93.9 Disorder of brain, unspecified (principal); R10.819 Abdominal tenderness, unspecified site; I10 Essential (primary) hypertension; E11.9 Type 2 diabetes mellitus without complications; I48.0 Paroxysmal atrial fibrillation; E78.00 Pure hypercholesterolemia, unspecified; J44.9 Chronic obstructive pulmonary disease, unspecified; G43.909 Migraine, unspecified, not intractable, without status migrainosus; K21.9 Gastro-esophageal reflux disease without esophagitis; G47.30 Sleep apnea, unspecified; F41.9 Anxiety disorder, unspecified; F32.9 Major depressive disorder, single episode, unspecified; Z99.89 Dependence on other enabling machines and devices; Z86.73 Personal history of transient ischemic attack (TIA), and cerebral infarction without residual deficits; Z87.442 Personal history of urinary calculi; Z88.0 Allergy status to penicillin; Z88.8 Allergy status to other drugs, medicaments and biological substances; Z79.01 Long term (current) use of anticoagulants; Z79.51 Long term (current) use of inhaled steroids; Z79.84 Long term (current) use of oral hypoglycemic drugs; Z79.899 Other long term (current) drug therapy
CPT/HCPCS: 36415; 70450; 71045; 80053; 81000; 82947; 83605; 84484; 85007; 85027; 85379; 85610; 85730; 86141; 87040; 87088; 93005; 93041

== ENCOUNTER 2020-12-12 10:57 | Observation (INO) | payer MEDICARE, MEDICAID ==
[~2020-12-12] VITALS: Ht 165.1 cm; Wt 131.8 kg
[2020-12-12 11:41] LABS: BASOPHILS # (AUTO) 0.1 10^3/uL (0.0-0.1); BASOPHILS % (AUTO) 1 % (0-10); EOSINOPHILS # (AUTO) 0.2 10^3/uL (0.0-0.3); EOSINOPHILS % (AUTO) 2 % (0-10); HEMATOCRIT 35 % (35-52); HEMOGLOBIN 10.2 g/dL (11.5-16.0); LYMPHOCYTES # (AUTO) 3.9 10^3/uL (1.0-4.0); LYMPHOCYTES % (AUTO) 39 % (12-44); MEAN CORPUSCULAR HEMOGLOBIN 20 pg (25-34); MEAN CORPUSCULAR HGB CONC 30 g/dL (32-36); MEAN CORPUSCULAR VOLUME 69 fL (80-99); MEAN PLATELET VOLUME 10.5 fL (9.0-12.2); MONOCYTES # (AUTO) 0.9 10^3/uL (0.0-1.0); MONOCYTES % (AUTO) 9 % (0-12); NEUTROPHILS # (AUTO) 5.1 10^3/uL (1.8-7.8); NEUTROPHILS % (AUTO) 50 % (42-75); PLATELET COUNT 403 10^3/uL (130-400); WHITE BLOOD COUNT 10.2 10^3/uL (4.3-11.0)
[2020-12-12 11:52] LABS: POTASSIUM 4.8 MMOL/L (3.6-5.0)
[2020-12-12 11:53] LABS: CALCIUM 9.8 MG/DL (8.5-10.1)
[2020-12-12 11:54] LABS: TOTAL PROTEIN 6.9 GM/DL (6.4-8.2)
[2020-12-12 11:56] LABS: BILIRUBIN,TOTAL 0.2 MG/DL (0.1-1.0)
[2020-12-12 11:58] LABS: CREATININE SERUM 1.08 MG/DL (0.60-1.30)
[2020-12-12 12:08] LABS: BILIRUBIN,URINE NEGATIVE (NEGATIVE); CLARITY,URINE CLEAR; COLOR,URINE YELLOW; GLUCOSE, URINE (UA) NEGATIVE (NEGATIVE); KETONES,URINE NEGATIVE (NEGATIVE); LEUKOCYTE ESTERASE ,URINE NEGATIVE (NEGATIVE); NITRITE,URINE NEGATIVE (NEGATIVE); PH,URINE 6.5 (5-9); PROTEIN,URINE NEGATIVE (NEGATIVE)
[2020-12-12 12:19] LABS: BACTERIA,URINE NEGATIVE /HPF; SQUAMOUS EPITHELIAL CELL,UR RARE /HPF; WBC,URINE 0-2 /HPF
[2020-12-12] MEDS ORDERED: IOHEXOL 350 MG/ML 100 ML (OMNIPAQUE 350) VIAL IV ONE (13:00)
[2020-12-12] MEDS ORDERED: NS 100 ML (IVPB) BAG IV ONE (13:00)
[2020-12-12] MEDS ORDERED: HOLD METFORMIN - RECEIVED CONTRAST 20 ML VIAL IV SCH (13:00)
[2020-12-12] MEDS ORDERED: CATHETER FLUSH 10 ML SYR IV PRN ×2 (13:00→17:00)
--- NOTE | 2020-12-12 13:33 | Diagnostic Imaging Report ---
EXAMINATION: CT abdomen and pelvis without contrast. TECHNIQUE: Multiple contiguous axial images were obtained through the abdomen and pelvis without the use of intravenous contrast. All CT scans use one or more of the following dose optimizing techniques: automated exposure control, MA and/or KvP adjustment based on patient size and exam type or iterative reconstruction. HISTORY: abd pain, hernia COMPARISON: None available. FINDINGS: Lung bases: The lung bases are clear. Solid organs: There is diffuse hypoattenuation of liver compatible with hepatic steatosis. The gallbladder is surgically absent. There is no biliary ductal dilation. Pancreas is normal. Spleen is normal. Adrenal glands are normal. There are bilateral nonobstructing renal calculi measuring up to 0.6 cm. There is no hydronephrosis. There is mild left renal cortical scarring. Bowel: The stomach and small bowel are normal without obstruction. The colon and appendix are normal. Peritoneum: There is no intraperitoneal free fluid or free air. No suspicious lymphadenopathy. Vasculature: Normal without aneurysm. Musculoskeletal: Degenerative changes of the spine without suspicious osseous lesion or compression fracture. There is a large fat-containing ventral abdominal wall hernia through 6.1 cm defect. Pelvis: The uterus is surgically absent. No adnexal mass. The urinary bladder is normal. IMPRESSION: 1. No acute abnormality in the abdomen or pelvis. 2. Hepatic steatosis. 3. Nonobstructing bilateral renal calculi measuring up to 0.6 cm. No hydronephrosis. 4. Stable, large fat-containing left ventral abdominal wall hernia through a 6.1 cm defect. Dictated by: Dictated on workstation # [id number]
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
--- NOTE | 2020-12-12 15:09 | Diagnostic Imaging Report ---
PROCEDURE: US left lower extremity venous. TECHNIQUE: Multiple real-time grayscale images were obtained over the left lower extremity in various projections. Additional duplex Doppler and color Doppler images were also obtained. INDICATION: Left leg pain. The left common femoral, superficial femoral and popliteal veins are patent, demonstrating normal compressibility with normal response to augmentation and Valsalva. There is thrombus identified in the peroneal trunk and extending into the calf veins. Including the posterior tibial vein. No fluid collection or mass is seen. IMPRESSION: No evidence of femoral-popliteal DVT. There is thrombus identified in the peroneal trunk and calf veins, as described. Dictated by: Dictated on workstation # [id number]
[2020-12-12] MEDS ORDERED: HYDROcodone/APAP 5 MG/325 MG (LORTAB) TAB PO ONE (15:15)
[2020-12-12 16:10] VITALS: BP 143/108
[2020-12-12] MEDS ORDERED: ONDANSETRON 4 MG/2 ML (SDV) Z0FRAN IV PRN (17:00)
[2020-12-12] MEDS ORDERED: diphenhydrAMINE 50 MG/ML INJ (BENADRYL) IV NR (17:00)
--- NOTE | 2020-12-12 17:30 | Progress Note-Pre Operative ---
Pre-Operative Progress Note H&P Reviewed The H&P was reviewed, patient examined and no changes noted. Date Seen by Provider: December 12, 2020 Time Seen by Provider: 17:30 Date H&P Reviewed: December 12, 2020 Time H&P Reviewed: 17:30 Pre-Operative Diagnosis: left lower extremity DVT with contraindication anticoagulation. DEEPTI IVY MD December 12, 2020 17:30
--- NOTE | 2020-12-12 18:08 | CONSULTATION REPORT ---
DATE OF SERVICE: 12/12/2020 ATTENDING PRIMARY CARE PHYSICIAN: Avis Parrish MD HISTORY OF PRESENT ILLNESS: The patient is a 50-year-old female, who was brought into EMS by ambulance. Her chief complaint was abdominal pain for the past week since having a craniotomy and resection of a glioblastoma in [facility]. She also had reported left foot swelling as well as bruising. She reports that during her previous hospitalization, she did have an IV placed on the left foot. A CT scan of the abdomen was performed, which showed nonobstructing bilateral renal calculi as well as a fat containing left abdominal wall hernias with a defect approximately 6.1 cm in size. Duplex ultrasound was also performed, which did show a deep vein thrombosis of the tibioperoneal trunk on the left side. The neurosurgeon was contacted regarding this issue as well as the high risk propagation of the deep vein thrombosis and potential pulmonary embolism; however, anticoagulation is contraindicated due to her recent craniotomy for another week. We were consulted for placement of an inferior vena cava filter. PAST MEDICAL HISTORY: Glioblastoma, sleep apnea, COPD, atrial fibrillation, hypercholesterolemia, hypertension, history of traumatic brain injury, diabetes, anxiety, and depression. PAST SURGICAL HISTORY: Cholecystectomy, total hysterectomy, loop recorder placement, right humeral open reduction and internal fixation, bilateral knee arthroscopy, cardiac catheterization in 2019. ALLERGIES: ESTRADIOL, PENICILLIN, PROVIDONE-IODINE, SOME SOAPS. MEDICATIONS: Albuterol 2 puffs q.i.d. p.r.n., apixaban 5 mg b.i.d., atorvastatin 10 mg daily, famotidine 20 mg b.i.d., fluoxetine 20 mg daily, gabapentin 1200 mg t.i.d., hydroxyzine 25 mg q.8 hours, metformin 1000 mg b.i.d., nitrofurantoin 100 mg b.i.d., omeprazole 40 mg daily, Zofran 4 mg q.4 hours p.r.n., Protonix 40 mg daily, phenazopyridine 200 mg t.i.d., promethazine 25 mg q.6 hours p.r.n., propranolol 120 mg daily, tizanidine 6 mg daily, and topiramate 50 mg b.i.d. SOCIAL HISTORY: Positive smoke and negative alcohol. FAMILY HISTORY: Mother, stroke. REVIEW OF SYSTEMS: This is a well-nourished female currently in no acute distress. She is not experiencing any shortness of breath or difficulty breathing. No chest pain, palpitations, diaphoresis. No nausea, vomiting with chronic lower abdominal pain as well as flank pain. She also has had swelling and edema of the left foot. No fever, chills, no recent inadvertent weight loss. All other review of systems negative. PHYSICAL EXAMINATION: VITAL SIGNS: Temperature is 36.8, blood pressure 175/101, pulse 79, respirations 18, and pulse ox 97% on room air. CHEST: Scattered wheezes and rhonchi bilaterally. HEART: Regular and no murmurs. EXTREMITIES: +1/3 left foot edema with pain upon palpation. HEENT: No scleral icterus. NECK: No cervical lymphadenopathy. ABDOMEN: Soft, nontender, and nondistended. SKIN: Warm, dry. LABORATORY DATA: WBC 10.2, hemoglobin 10.2, hematocrit 35, platelets 403, BUN 13, and creatinine 1.08. Liver function enzymes are normal. ASSESSMENT AND PLAN: A 50-year-old female with a left tibioperoneal deep vein thrombosis with history of recent craniotomy and resection of glioblastoma. She needs to continue to refrain from anticoagulation; however, is a high risk for propagation of DVT as well as pulmonary embolism and we will proceed with placement of an inferior vena cava filter. Job ID: [id number] DocumentID: [id number] Dictated Date: 12/12/2020 17:25:41 Python Developer Date: 12/12/2020 18:07:53 Dictated By: DEEPTI IVY MD [facility]
[2020-12-12 19:11] VITALS: BP 135/69
[2020-12-12] MEDS: toPIRamate 100 MG (TOPAMAX) TAB PO SCH (20:00)
[2020-12-12] MEDS: HYDROcodone/APAP 5 MG/325 MG (LORTAB) TAB PO PRN (20:01)
[2020-12-12] MEDS: CATHETER FLUSH 10 ML SYR IV SCH (22:00)
[2020-12-13] VITALS (7 sets, daily range): BP systolic 124–143; BP diastolic 52–99
[2020-12-13] MEDS: HYDROcodone/APAP 5 MG/325 MG (LORTAB) TAB PO PRN ×3 (01:32→07:32)
[2020-12-13] MEDS: CATHETER FLUSH 10 ML SYR IV SCH ×2 (05:08→13:16)
[2020-12-13] MEDS ORDERED: FLUO20CA46 PO (08:32)
[2020-12-13] MEDS ORDERED: PREG75CA75 PO (08:32)
[2020-12-13] MEDS ORDERED: CALC10009 PO (08:32)
[2020-12-13] MEDS ORDERED: ACET-2267 PO (08:32)
[2020-12-13] MEDS ORDERED: FAMO20TA5 PO (08:32)
[2020-12-13] MEDS ORDERED: ATOR20TA66 PO (08:32)
[2020-12-13] MEDS ORDERED: UBRO50TA PO (08:32)
[2020-12-13] MEDS ORDERED: PROM25TA14 PO (08:32)
[2020-12-13] MEDS ORDERED: PANT40TA52 PO (08:32)
[2020-12-13] MEDS ORDERED: LEVE10006 PO (08:36)
[2020-12-13] MEDS ORDERED: FLUT1BLS INH (08:36)
[2020-12-13] MEDS: toPIRamate 100 MG (TOPAMAX) TAB PO SCH (08:44)
[2020-12-13] MEDS ORDERED: EREN70AU2 INJ (08:45)
[2020-12-13] MEDS ORDERED: GALC120P INJ (08:45)
[2020-12-13] MEDS ORDERED: HEParin (CENTRAL IV FLUSH) 500 UNIT/5 ML SYR ONE ×2 (09:07→09:15)
[2020-12-13] MEDS ORDERED: LIDOCAINE/EPI 1%-1:200,000 (XYLOCAINE) 30 ML VIAL ONE (09:07)
[2020-12-13] MEDS ORDERED: IOPAMIDOL 61% 30 ML (ISOVUE 300) VIAL ONE (09:07)
[2020-12-13] MEDS ORDERED: proPOfol 200 MG/20 ML (DIPRIVAN) VIAL IV ONE ×3 (09:29→10:14)
[2020-12-13] MEDS ORDERED: MIDAZOLAM 2 MG/2 ML (VERSED) VIAL ONE ×2 (09:29→09:36)
[2020-12-13] MEDS ORDERED: LIDOCAINE PF 2% 5 ML (XYLOCAINE) VIAL ONE (09:29)
[2020-12-13] MEDS ORDERED: LACTATED RINGERS 1,000 ML IV PRN (09:30)
[2020-12-13] MEDS ORDERED: diphenhydrAMINE 50 MG/ML INJ (BENADRYL) ONE (09:58)
[2020-12-13] MEDS ORDERED: CLINDAMYCIN 600 MG/4ML (CLEOCIN) VIAL ONE ×2 (10:04)
[2020-12-13] MEDS ORDERED: fentaNYL INJ 100 MCG/2 ML AMP ONE (10:13)
[2020-12-13] MEDS ORDERED: ESMOLOL 100 MG/10 ML (BREVIBLOC) VIAL ONE (10:15)
--- NOTE | 2020-12-13 10:47 | Progress Note-Post Operative ---
Post-Operative Progess Note Surgeon (s)/Pallet Rectifier (s) Surgeon DEEPTI IVY MD Pallet Rectifier: none Pre-Operative Diagnosis left lower extremity DVT with contraindication anticoagulation. Post-Operative Diagnosis same Procedure & Operative Findings Date of Procedure 12/13/20 Procedure Performed/Findings venogram with placement optease retrievable IVC filter under flouroscopy. Anesthesia Type mac with local Estimated Blood Loss Estimated blood loss (mL): minimal Specimens/Packing Specimens Removed none DEEPTI IVY MD December 13, 2020 10:47
--- NOTE | 2020-12-13 10:59 | Anesthesia-General Post-Op ---
MAC Patient Condition Mental Status/LOC: Same as Preop Cardiovascular: Satisfactory Nausea/Vomiting: Absent Respiratory: Satisfactory Pain: Controlled Complications: Absent Post Op Complications Complications None Follow Up Care/Instructions Patient Instructions None needed. Anesthesiology Discharge Order Discharge Order Patient is doing well, no complaints, stable vital signs, no apparent adverse anesthesia problems. VIGNESH FERGUSON DO December 13, 2020 10:59
[2020-12-13] MEDS ORDERED: morphine INJ 10 MG/ML 1ML (SYR OR VIAL) IVP ONE (11:00)
[2020-12-13] MEDS ORDERED: ONDANSETRON 4 MG/2 ML (SDV) Z0FRAN IVP PRN (11:00)
--- NOTE | 2020-12-13 11:17 | Diagnostic Imaging Report ---
EXAMINATION: Fluoroscopy at 1033 hours. INDICATION: Vena cava filter in OR. FINDINGS: Fluoroscopic assistance was provided for Dr. Lopez. 1 minute and 36 seconds of fluoroscopy time was utilized. 122 images of the abdomen were obtained. There is a radiopaque instrument overlying the mid abdomen. The images are not marked left or right, however. IMPRESSION: Fluoroscopic assistance was provided for Dr. Lopez. Dictated by: Dictated on workstation # [id number]
[2020-12-13] MEDS ORDERED: ACHD5005 PO (12:51)
--- NOTE | 2020-12-13 12:55 | Short Stay Summary ---
Discharge Summary Hospital Course Final Diagnosis: Left peroneal DVT Hospital Course Date of Admission: December 12, 2020 at 14:56 Admission Diagnosis : Glioblastoma Left peroneal vein DVT DMII Chronic migraines Family Physician/Provider: Obinna Parrish MD Date of Discharge: 12/13/20 Discharge Diagnosis: Glioblastoma Left peroneal vein DVT s/p IVC filter placement DMII Chronic migraines Hospital Course: Pt came to ER for abdominal pain, found to have only chronic findings that were known previously related to her abdominal fat containing hernia. Did also have left peroneal vein DVT however and was admitted for IVC filter placement as she was too close to her recent craniotomy/brain tumor resection to start anticoagulation per her Neurosurgeon. Requested pain medication on d/c for her post brain surgery pain. Labs and Pending Lab Test: Laboratory Tests 12/13/20 08:20: Influenza Type A (RT-PCR) Not Detected, Influenza Type B (RT-PCR) Not Detected, SARS-CoV-2 RNA (RT-PCR) Not Detected Home Meds Active Reported Emgality (Galcanezumab-Gnlm) 120 Mg/1 Ml Pen.injctr 120 Mg INJ MONTHLY Aimovig Autoinjector (Erenumab-Aooe) 140 Mg/1 Ml Auto.injct 140 Mg INJ MONTHLY Breo Ellipta 200-25 Mcg INH (Fluticasone/Vilanterol) 1 Each Blst.w.dev 1 Puff INH DAILY Levetiracetam 1,000 Mg Tablet 1,000 Mg PO BID FILLED - WAS ONLY TAKING FOR 7 DAYS AND LAST DOSE WOULD BE 12-13-2020 Tums Ultra (Calcium Carbonate) 400 Mg Tab.chew 400-800 Mg PO PRN PRN Tylenol Extra Strength (Acetaminophen) 500 Mg Tablet 500-1,000 Mg PO Q8H PRN Ubrelvy (Ubrogepant) 50 Mg Tablet 50 Mg PO UD PRN Atorvastatin Calcium 20 Mg Tablet 20 Mg PO HS Famotidine 20 Mg Tablet 20 Mg PO BID Pregabalin 75 Mg Capsule 150 Mg PO BID TAKES 2 (75MG) CAPS Promethazine Tablet (Promethazine HCl) 25 Mg Tablet 25 Mg PO Q6H PRN Pantoprazole Sodium 40 Mg Tablet.dr 40 Mg PO DAILY Fluoxetine HCl 20 Mg Capsule 20 Mg PO DAILY Hydroxyzine HCl 25 Mg Tablet 25 Mg PO Q8H PRN Metformin HCl 1,000 Mg Tablet 1,000 Mg PO BID Tizanidine HCl 2 Mg Tablet 6 Mg PO HS TAKES 3 (2MG) TABS Propranolol HCl ER (Propranolol HCl) 120 Mg Cap.sa.24h 120 Mg PO DAILY Ventolin Hfa (Albuterol Sulfate) 1 Puff Puff 2 Puff INH QID PRN Topiramate 50 Mg Tablet 150 Mg PO BID TAKES 3 (50MG) TABLETS Assessment/Pt Instructions Follow up with Dr. Parrish on 12/26 at 11 am Discharge Instructions Discharge Diet: ADA Diet Activity as Tolerated: Yes Discharge Physical Examination General Appearance: Alert, No Acute Distress Respiratory: Clear to Auscultation, Normal Air Movement Cardiovascular: Regular Rate, No Murmurs Neuro: Normal Speech Psych/Mental Status: Mood NL Allergies: Coded Allergies: estradiol (Unverified Allergy, Severe, RASH/TIA, 11/14/19) Penicillins (Unverified Allergy, Mild, Hives, 06/28/19) povidone-iodine (Unverified Allergy, Mild, Hives, 06/28/19) soap (Unverified Adverse Reaction, Unknown, 08/08/20) Discharge Summary Date of Discharge OBINNA PARRISH MD December 13, 2020 12:55
--- NOTE | 2020-12-13 15:32 | OPERATIVE REPORT ---
DATE OF SERVICE: 12/13/2020 ATTENDING PRIMARY CARE PHYSICIAN: Dr. Avis Parrish. PREOPERATIVE DIAGNOSIS: Left lower extremity tibial peroneal deep vein thrombosis with contraindication to anticoagulation. POSTOPERATIVE DIAGNOSIS: Left lower extremity tibial peroneal deep vein thrombosis with contraindication to anticoagulation. PROCEDURE: Venogram with placement of OptEase retrievable vena cava filter under fluoroscopy. SURGEON: Deepti Ivy MD ANESTHESIA: Monitored anesthesia care with local. ESTIMATED BLOOD LOSS: Minimal. FINDINGS: The takeoff of the renal veins were approximately at the level of L1. The IVC filter was placed between L2 and L3. A total of 90 mL of Omnipaque dye at 300 mg/mL concentration were given. DISPOSITION: The patient tolerated the procedure well. INDICATIONS: The patient is a 50-year-old female who was brought to the ED by ambulance. Her chief complaint was abdominal pain for the past week since having a craniotomy and resection of a glioblastoma in [facility] one week prior. She had reported left foot swelling as well as bruising. She reports that during her previous hospitalization, she did have an IV placed on the left foot. A CT scan of the abdomen showed nonobstructing bilateral renal calculi as well as a fat containing left abdominal wall hernia with a defect approximately 6.1 cm in size. Duplex ultrasonography was then performed of the lower extremity, which did show a deep vein thrombosis of the tibioperoneal trunk of the left lower extremity. The neurosurgeon was contacted regarding this issue as well as the high-risk propagation of the deep vein thrombosis and potential pulmonary embolism; however, she also has anticoagulation contraindication to her recent craniotomy one week ago. We were consulted for placement of an inferior vena cava filter. DESCRIPTION OF PROCEDURE: The patient was brought to the operating room, laid supine on the table. After adequate IV pain and sedative medications and monitored anesthesia care, the abdomen, lower extremities and perineum were prepped and draped in standard surgical fashion. The skin overlying the left femoral vein was then anesthetized using 1% lidocaine with epinephrine. The right femoral vein was then cannulated with drawing of venous blood. Guidewire was then inserted under fluoroscopy. The cannulating needle removed and a small skin incision made using 11 blade. The dilator and sheath were then introduced over the guidewire using the Seldinger technique. The guidewire was then removed. We then proceeded with a venogram where 90 mL of Omnipaque contrast at 300 mg per mL were infused. The diameter of the inferior vena cava was approximately 15 mm and the takeoff of the renal veins were at approximately the L1 level. The dilator was then removed and the sheath was then placed in between L2 and L3 and under direct visualization using fluoroscopy, the OptEase retrievable vena cava filter was placed between L2 and L3. The sheath was then removed with visualization of good hemostasis. The patient tolerated the procedure well. She may resume all of her normal activities. She will continue with no anticoagulation for the next week and we will then defer to her neurosurgeon for restarting of anticoagulation. Job ID: [id number] DocumentID: [id number] Dictated Date: 12/13/2020 10:53:51 Tool Crib Supervisor Date: 12/13/2020 15:32:05 Dictated By: DEEPTI IVY MD MTDD
[2020-12-19] MEDS ORDERED: APIX5TAB PO (11:43)
== END 2020-12-13 13:35 | disposition home or self-care (01) ==
LOC: EDUNIT# 10:57 → ER 10:58 → 4TH 14:56
PROVIDERS: ADMIT Family Medicine; ATTEND Family Medicine
DX: C71.9 Malignant neoplasm of brain, unspecified (principal); I82.452 Acute embolism and thrombosis of left peroneal vein; E11.9 Type 2 diabetes mellitus without complications; G43.909 Migraine, unspecified, not intractable, without status migrainosus; J44.9 Chronic obstructive pulmonary disease, unspecified; E78.00 Pure hypercholesterolemia, unspecified; I10 Essential (primary) hypertension; G89.29 Other chronic pain; M54.9 Dorsalgia, unspecified; F41.9 Anxiety disorder, unspecified; F32.9 Major depressive disorder, single episode, unspecified; I48.91 Unspecified atrial fibrillation; G47.33 Obstructive sleep apnea (adult) (pediatric); E66.01 Morbid (severe) obesity due to excess calories; Z68.42 Body mass index [BMI] 45.0-49.9, adult; F17.210 Nicotine dependence, cigarettes, uncomplicated; Z79.51 Long term (current) use of inhaled steroids; Z79.899 Other long term (current) drug therapy; Z79.84 Long term (current) use of oral hypoglycemic drugs; Z79.01 Long term (current) use of anticoagulants
CPT/HCPCS: 37191; 74176; 76000; 80053; 81000; 83690; 85025; 86141; 87081; 87636; 93971; 99284; C1880; G0378; 36415

== ENCOUNTER 2020-12-18 12:44 | Observation (INO) | payer MEDICARE, MEDICAID ==
[~2020-12-18] VITALS: Ht 166.3 cm; Wt 135.3 kg
[~2020-12-18 12:44] MED LIST changes: +ACET-2267 PO; +ATOR20TA66 PO; +CALC10009 PO; +EREN70AU2 INJ; +FAMO20TA5 PO; +FLUO20CA46 PO; +FLUT1BLS INH; +GALC120P INJ; +LEVE10006 PO; +PANT40TA52 PO; +PREG75CA75 PO; +PROM25TA14 PO; +UBRO50TA PO
[2020-12-18] MEDS ORDERED: morphine INJ 10 MG/ML 1ML (SYR OR VIAL) ONE (13:03)
[2020-12-18 13:09] LABS: BASOPHILS # (AUTO) 0.1 10^3/uL (0.0-0.1); BASOPHILS % (AUTO) 1 % (0-10); EOSINOPHILS # (AUTO) 0.2 10^3/uL (0.0-0.3); EOSINOPHILS % (AUTO) 1 % (0-10); HEMATOCRIT 32 % (35-52); HEMOGLOBIN 9.8 g/dL (11.5-16.0); LYMPHOCYTES # (AUTO) 3.2 10^3/uL (1.0-4.0); LYMPHOCYTES % (AUTO) 22 % (12-44); MEAN CORPUSCULAR HEMOGLOBIN 21 pg (25-34); MEAN CORPUSCULAR HGB CONC 30 g/dL (32-36); MEAN CORPUSCULAR VOLUME 68 fL (80-99); MEAN PLATELET VOLUME 10.4 fL (9.0-12.2); MONOCYTES # (AUTO) 0.7 10^3/uL (0.0-1.0); MONOCYTES % (AUTO) 5 % (0-12); NEUTROPHILS # (AUTO) 10.1 10^3/uL (1.8-7.8); NEUTROPHILS % (AUTO) 71 % (42-75); PLATELET COUNT 373 10^3/uL (130-400); WHITE BLOOD COUNT 14.2 10^3/uL (4.3-11.0)
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
[2020-12-18] MEDS ORDERED: morphine INJ 10 MG/ML 1ML (SYR OR VIAL) IVP STA (13:10)
[2020-12-18] MEDS ORDERED: diphenhydrAMINE 50 MG/ML INJ (BENADRYL) IVP ONE (13:15)
[2020-12-18 13:20] LABS: POTASSIUM 4.1 MMOL/L (3.6-5.0)
[2020-12-18 13:21] LABS: CALCIUM 9.4 MG/DL (8.5-10.1)
[2020-12-18 13:23] LABS: TOTAL PROTEIN 7.3 GM/DL (6.4-8.2)
[2020-12-18 13:24] LABS: BILIRUBIN,TOTAL 0.3 MG/DL (0.1-1.0)
[2020-12-18 13:26] LABS: CREATININE SERUM 1.06 MG/DL (0.60-1.30)
[2020-12-18 13:28] LABS: PROTHROMBIN TIME PATIENT 13.5 SEC (12.2-14.7)
[2020-12-18 13:29] LABS: MAGNESIUM 1.6 MG/DL (1.6-2.4)
[2020-12-18 13:33] LABS: ANISOCYTOSIS MODERATE; BAND NEUTROPHILS 0 %; BASOPHILS % (MANUAL) 2 %; EOSINOPHILS % (MANUAL) 0 %; HYPOCHROMASIA MODERATE; LYMPHOCYTES % (MANUAL) 22 %; MONOCYTES % (MANUAL) 1 %; NEUTROPHILS % (MANUAL) 75 %; POLYCHROMASIA SLIGHT
[2020-12-18 13:34] LABS: MICROCYTOSIS MODERATE
--- NOTE | 2020-12-18 13:34 | Diagnostic Imaging Report ---
INDICATION: Chest pain. TECHNIQUE: Single view chest 1:31 p.m. CORRELATION STUDY: 12/02/2020 FINDINGS: Heart size and mediastinum are stable. Vasculature is slightly increased from prior. There is a loop recorder device over the cardiac apex. Given the limited depth of inspiration, lung saucedo overall are clear. No infiltrate. IMPRESSION: 1. Stable heart size with vasculature slightly increased from prior. Dictated by: Dictated on workstation # [id number]
[2020-12-18] MEDS ORDERED: NS 100 ML (IVPB) BAG IV ONE (15:45)
[2020-12-18] MEDS ORDERED: HOLD METFORMIN - RECEIVED CONTRAST 20 ML VIAL IV SCH (15:45)
[2020-12-18] MEDS ORDERED: IOHEXOL 350 MG/ML 100 ML (OMNIPAQUE 350) VIAL IV ONE (15:45)
[2020-12-18] MEDS ORDERED: ACETAMINOPHEN 325 MG TABLET PO ONE (17:45)
--- NOTE | 2020-12-18 18:43 | Diagnostic Imaging Report ---
PROCEDURE: CT angiography of the chest with contrast. TECHNIQUE: Multiple contiguous axial images were obtained through the chest after uneventful bolus administration of intravenous contrast. 3D reconstructed CTA MIP acquisitions were also performed. Auto Exposure Controls were utilized during the CT exam to meet ALARA standards for radiation dose reduction. INDICATION: Left-sided chest pain. FINDINGS: There are no intraluminal pulmonary arterial filling defects. There were no findings of pulmonary arterial embolus. 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 No hilar, mediastinal or axillary lymphadenopathy. No consolidating pneumonia. No pulmonary nodule or suspicious lung mass. No acute chest wall pathology. Visualized upper abdomen shows partially visualized left renal calculi. IMPRESSION: Negative for PE or other acute chest pathology, left-sided nephrolithiasis noted. Dictated by: Dictated on workstation # [id number]
[2020-12-18 19:50] VITALS: BP 119/78
[2020-12-18] MEDS ORDERED: NITROGLYCERIN 0.4 MG SL TABS BTL 25'S SL PRN (20:00)
[2020-12-18] MEDS ORDERED: ONDANSETRON 4 MG/2 ML (SDV) Z0FRAN IV PRN (20:00)
[2020-12-18] MEDS ORDERED: ACETAMINOPHEN 325 MG TABLET PO PRN (20:00)
[2020-12-18] MEDS ORDERED: morphine INJ 4 MG/ML 1 ML (VIAL/SYRINGE) IV PRN (20:00)
[2020-12-18] MEDS ORDERED: CATHETER FLUSH 10 ML SYR IV PRN (20:00)
[2020-12-18 20:11] VITALS: BP 150/88
[2020-12-18] MEDS ORDERED: RT-ALBUTEROL INHALER HFA (VENTOLIN HFA) 18 GM IH PRN (20:30)
[2020-12-18] MEDS ORDERED: MELATONIN 3 MG TABLET PO PRN (21:30)
[2020-12-18] MEDS ORDERED: diphenhydrAMINE 25 MG TAB (BENADRYL) PO PRN (21:30)
[2020-12-18] MEDS ORDERED: ALPRAZolam 0.25 MG (XANAX) TAB PO PRN (21:30)
[2020-12-18] MEDS ORDERED: CALCIUM CARBONATE 500 MG (TUMS) TAB.CHEW PO PRN (21:30)
[2020-12-18] MEDS ORDERED: LOPERAMIDE 2 MG (IMODIUM) TABLET PO PRN (21:30)
[2020-12-18] MEDS ORDERED: DOCUSATE SODIUM 100 MG (COLACE) CAP PO PRN (21:30)
[2020-12-18] MEDS: NICOTINE 7 MG (NICODERM) PATCH TD SCH (22:08)
[2020-12-18] MEDS: CATHETER FLUSH 10 ML SYR IV SCH (22:09)
[2020-12-19 00:10] VITALS: BP 95/64
[2020-12-19] MEDS: HYDROcodone/APAP 5 MG/325 MG (LORTAB) TAB PO PRN ×2 (02:43→06:52)
[2020-12-19 04:00] VITALS: BP 119/75
[2020-12-19] MEDS: CATHETER FLUSH 10 ML SYR IV SCH (05:05)
[2020-12-19 05:21] LABS: BASOPHILS # (AUTO) 0.1 10^3/uL (0.0-0.1); BASOPHILS % (AUTO) 1 % (0-10); EOSINOPHILS # (AUTO) 0.2 10^3/uL (0.0-0.3); EOSINOPHILS % (AUTO) 2 % (0-10); HEMATOCRIT 30 % (35-52); LYMPHOCYTES # (AUTO) 3.2 10^3/uL (1.0-4.0); LYMPHOCYTES % (AUTO) 26 % (12-44); MEAN CORPUSCULAR HEMOGLOBIN 20 pg (25-34); MEAN CORPUSCULAR HGB CONC 30 g/dL (32-36); MEAN CORPUSCULAR VOLUME 68 fL (80-99); MEAN PLATELET VOLUME 10.3 fL (9.0-12.2); MONOCYTES # (AUTO) 0.7 10^3/uL (0.0-1.0); MONOCYTES % (AUTO) 5 % (0-12); NEUTROPHILS # (AUTO) 8.1 10^3/uL (1.8-7.8); NEUTROPHILS % (AUTO) 66 % (42-75); PLATELET COUNT 354 10^3/uL (130-400); WHITE BLOOD COUNT 12.2 10^3/uL (4.3-11.0)
[2020-12-19 05:25] LABS: ALBUMIN 3.6 GM/DL (3.2-4.5); CHLORIDE 107 MMOL/L (98-107); POTASSIUM 3.9 MMOL/L (3.6-5.0); SODIUM 138 MMOL/L (135-145)
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
[2020-12-19 05:26] LABS: CALCIUM 9.2 MG/DL (8.5-10.1)
[2020-12-19 05:27] LABS: TRIGLYCERIDES 311 MG/DL (<150); VLDL CHOLESTEROL 62 MG/DL (5-40)
[2020-12-19 05:28] LABS: GLUCOSE 189 MG/DL (70-105); TOTAL PROTEIN 6.5 GM/DL (6.4-8.2)
[2020-12-19 05:29] LABS: CARBON DIOXIDE 20 MMOL/L (21-32)
[2020-12-19 05:30] LABS: BILIRUBIN,TOTAL 0.2 MG/DL (0.1-1.0)
[2020-12-19 05:31] LABS: ALKALINE PHOSPHATASE 86 U/L (40-136); CREATININE SERUM 1.06 MG/DL (0.60-1.30); GFR ESTIMATED 55
[2020-12-19 05:32] LABS: CHOLESTEROL 155 MG/DL (< 200)
[2020-12-19 05:33] LABS: BUN/CREATININE RATIO 14
[2020-12-19 05:34] LABS: ALANINE AMINOTRANSFERASE 17 U/L (0-55); HDL CHOLESTEROL 37 MG/DL (40-60)
--- NOTE | 2020-12-19 07:49 | Consultation-Cardiology ---
HPI-Cardiology Cardiology Consultation: Date of Consultation 12/19/20 Time Seen by a Provider: 09:25 Date of Admission 12-18-2020 Attending Physician Shawna Rivera DO Admitting Physician Obinna Harding MD Consulting Physician Brian Wiseman MD HPI: Chief Complaint: Chest pain Ms. Fuentes is a 50 yr old female admitted to [facility] from the ED with c/o chest pain which started approx 4 days ago. She describes it as a "muscle cramping" in her chest which radiates across her chest. The episodes come on with or without movement. She states at times the chest cramping causes her to "get stuck" in a position and her family has to help her stretch out to move. She denies any palpitations or SOB. No c/o n/v/d. She reports she has had recent vision loss in her right eye and has been dx with glioblastoma for which she underwent craniotomy at [facility] in [place]. She reports she then developed a DVT in her left leg following removal of IV access from her left foot for which she has had an IVC filter placed by Dr. Lopez last week. She reports she has chronic bilat LE swelling which has been worse on the left, but this has improved. She does not report any chest discomfort this morning. She reports she is under increased stress at home d/t her , who also has been dx with glioblastoma, not doing well. She continues to smoke cigs. Review of Systems-Cardiology Review of Systems Constitutional: No chills, No fever; malaise Eyes: vision change (loss of vision in her right eye) Ears/Nose/Throat: No epistaxis, No recent hearing loss Respiratory: As described under HPI Cardiovascular: As described under HPI Gastrointestinal: No constipation, No diarrhea, No nausea, No vomiting Genitourinary: No dysuria Musculoskeletal: no symptoms reported Skin: other (sutures to the back of her head); No rash on exposed areas, No ulcerations on exposed areas Psychiatric/Neurological: anxiety; No seizure, No focal weakness, No syncope VBR-Ooixjn-Lfxzpb Hx Patient Social History Smoking Status: Current Everyday Smoker 2nd Hand Smoke Exposure: Yes Have you traveled recently?: No Alcohol Use?: No Substance type: Nicotine Pt feels they are or have been: No Tobacco type used: Cigarettes Immunizations Up To Date Date of Pneumonia Vaccine: Apr 18, 2018 Date of Influenza Vaccine: Apr 18, 2020 Past Medical History PMH As described under Assessment. Family Medical History Family History: Myocardial infarction GRANDMOTHER AUNT GRANDFATHER Seizure disorder Stroke 19 MOTHER GRANDMOTHER AUNT MATERNAL GRANDFATHER Allergies and Home Medications Allergies Coded Allergies: estradiol (Unverified Allergy, Severe, RASH/TIA, 11/14/19) Penicillins (Unverified Allergy, Mild, Hives, 06/28/19) povidone-iodine (Unverified Allergy, Mild, Hives, 06/28/19) soap (Unverified Adverse Reaction, Unknown, 08/08/20) Home Medications Acetaminophen 500 Mg Tablet, 500-1,000 MG PO Q8H PRN for PAIN-MILD (1-4), (Reported) Albuterol Sulfate 1 Puff Puff, 2 PUFF INH QID PRN for SHORTNESS OF BREATH, (Reported) Atorvastatin Calcium 20 Mg Tablet, 20 MG PO HS, (Reported) Calcium Carbonate 400 Mg Tab.chew, 400-800 MG PO PRN PRN for INDIGESTION, (Repor morelia) Erenumab-Aooe 140 Mg/1 Ml Auto.injct, 140 MG INJ MONTHLY, (Reported) Famotidine 20 Mg Tablet, 20 MG PO BID, (Reported) Fluoxetine HCl 20 Mg Capsule, 20 MG PO DAILY, (Reported) Fluticasone/Vilanterol 1 Each Blst.w.dev, 1 PUFF INH DAILY, (Reported) Galcanezumab-Gnlm 120 Mg/1 Ml Pen.injctr, 120 MG INJ MONTHLY, (Reported) Hydrocodone/Acetaminophen 1 Each Tablet, 1 TAB PO Q8H PRN for PAIN-SEVERE (8-10) Prescribed by: OBINNA HARDING on 12/13/20 1251 Hydroxyzine HCl 25 Mg Tablet, 25 MG PO Q8H PRN for ITCHING, (Reported) Levetiracetam 1,000 Mg Tablet, 1,000 MG PO BID, (Reported) FILLED - WAS ONLY TAKING FOR 7 DAYS AND LAST DOSE WOULD BE 12-13-2020 Metformin HCl 1,000 Mg Tablet, 1,000 MG PO BID, (Reported) Pantoprazole Sodium 40 Mg Tablet.dr, 40 MG PO DAILY, (Reported) Pregabalin 75 Mg Capsule, 150 MG PO BID, (Reported) TAKES 2 (75MG) CAPS Promethazine HCl 25 Mg Tablet, 25 MG PO Q6H PRN for NAUSEA/VOMITING-2ND LINE, (Reported) Last Action: Reviewed Propranolol HCl 120 Mg Cap.sa.24h, 120 MG PO DAILY, (Reported) Tizanidine HCl 2 Mg Tablet, 6 MG PO HS, (Reported) TAKES 3 (2MG) TABS Topiramate 50 Mg Tablet, 150 MG PO BID, (Reported) TAKES 3 (50MG) TABLETS Ubrogepant 50 Mg Tablet, 50 MG PO UD PRN for MIGRAINE, (Reported) Physical Exam-Cardiology Physical Exam Vital Signs/I&O 12/18/20 12/19/20 12/19/20 12/19/20 22:40 00:10 01:00 03:58 Temp 36.5 Pulse 71 72 80 Resp 18 B/P (MAP) 95/64 (74) Pulse Ox 97 O2 Delivery Nasal Cannula Nasal Cannula O2 Flow Rate 2.00 2.00 12/19/20 12/19/20 12/19/20 04:00 07:00 08:21 Temp 36.9 36.4 Pulse 80 80 81 Resp 20 18 B/P (MAP) 119/75 (90) 113/58 (76) Pulse Ox 95 96 O2 Delivery Nasal Cannula Room Air O2 Flow Rate 2.00 12/19/20 00:00 Intake Total 400 ml Balance 400 ml Capillary Refill : Less Than 3 Seconds Constitutional: AAO x 3, well-developed, well-nourished HEENT: PERRL, hearing is well preserved, oral hygience is good Neck: No carotid bruit; carotid pulses are 2 + bilaterally Respiratory: No accessory muscle use, No respiratory distress; chest expansion is symmetric, chest is bilaterally symmetric, other (prolonged expiratory phase) Cardiovascular: regular rate-rhythm; No JVD; S1 and S2 Gastrointestinal: No tender; soft, round, audible bowel sounds Extremities: other (mild to mod pedal edema (L>R)) Neurologic/Psychiatric: grossly intact (moves all extremities) Skin: No rash on exposed areas, No ulcerations on exposed areas; other (suture line with stitches in place to the back of her head; edges approx, no redness or drainage) Data Review Labs Laboratory Tests 12/18/20 13:00: White Blood Count 14.2H, Red Blood Count 4.73, Hemoglobin 9.8L, Hematocrit 32L, Mean Corpuscular Volume 68L, Mean Corpuscular Hemoglobin 21L, Mean Corpuscular Hemoglobin Concent 30L, Red Cell Distribution Width 19.0H, Platelet Count 373, Mean Platelet Volume 10.4, Immature Granulocyte % (Auto) 0, Neutrophils (%) (Auto) 71, Lymphocytes (%) (Auto) 22, Monocytes (%) (Auto) 5, Eosinophils (%) (Auto) 1, Basophils (%) (Auto) 1, Neutrophils # (Auto) 10.1H, Lymphocytes # (Auto) 3.2, Monocytes # (Auto) 0.7, Eosinophils # (Auto) 0.2, Basophils # (Auto) 0.1, Immature Granulocyte # (Auto) 0.1, Neutrophils % (Manual) 75, Lymphocytes % (Manual) 22, Monocytes % (Manual) 1, Eosinophils % (Manual) 0, Basophils % (Manual) 2, Band Neutrophils 0, Polychromasia SLIGHT, Hypochromasia MODERATE, Anisocytosis MODERATE, Microcytosis MODERATE, Prothrombin Time 13.5, INR Comment 1.0, Activated Partial Thromboplast Time 26, Sodium Level 138, Potassium Level 4.1, Chloride Level 107, Carbon Dioxide Level 18L, Anion Gap 13, Blood Urea Nitrogen 16, Creatinine 1.06, Estimat Glomerular Filtration Rate 55, BUN/Creatinine Ratio 15, Glucose Level 138H, Calcium Level 9.4, Corrected Calcium 9.4, Magnesium Level 1.6, Total Bilirubin 0.3, Aspartate Amino Transf (AST/SGOT) 14, Alanine Aminotransferase (ALT/SGPT) 17, Alkaline Phosphatase 100, Myoglobin 27.0, Troponin I < 0.028, B-Type Natriuretic Peptide 22.5, Total Protein 7.3, Albumin 4.0 12/18/20 17:24: Troponin I < 0.028 12/19/20 00:42: Troponin I < 0.028 12/19/20 04:52: White Blood Count 12.2H, Red Blood Count 4.41, Hemoglobin 9.0L, Hematocrit 30L, Mean Corpuscular Volume 68L, Mean Corpuscular Hemoglobin 20L, Mean Corpuscular Hemoglobin Concent 30L, Red Cell Distribution Width 19.2H, Platelet Count 354, Mean Platelet Volume 10.3, Immature Granulocyte % (Auto) 0, Neutrophils (%) (Auto) 66, Lymphocytes (%) (Auto) 26, Monocytes (%) (Auto) 5, Eosinophils (%) (Auto) 2, Basophils (%) (Auto) 1, Neutrophils # (Auto) 8.1H, Lymphocytes # (Auto) 3.2, Monocytes # (Auto) 0.7, Eosinophils # (Auto) 0.2, Basophils # (Auto) 0.1, Immature Granulocyte # (Auto) 0.1, Sodium Level 138, Potassium Level 3.9, Chloride Level 107, Carbon Dioxide Level 20L, Anion Gap 11, Blood Urea Nitrogen 15, Creatinine 1.06, Estimat Glomerular Filtration Rate 55, BUN/Creatinine Ratio 14, Glucose Level 189H, Calcium Level 9.2, Corrected Calcium 9.5, Total Bilirubin 0.2, Aspartate Amino Transf (AST/SGOT) 18, Alanine Aminotransferase (ALT/SGPT) 17, Alkaline Phosphatase 86, Troponin I < 0.028, Total Protein 6.5, Albumin 3.6, Triglycerides Level 311H, Cholesterol Level 155, LDL Cholesterol Direct 87, VLDL Cholesterol 62H, HDL Cholesterol 37L Radiology NAME: EUGENE FUENTES [facility] REC#: [id number] PT STATUS: REG ER : 1970 PHYSICIAN: ELENA CHRISTOPHER CATTERY OPERATOR ADMIT DATE: 12/18/20/ER Signed Date of Exam:12/18/20 CT ANGIO CHEST W PROCEDURE: CT angiography of the chest with contrast. TECHNIQUE: Multiple contiguous axial images were obtained through the chest after uneventful bolus administration of intravenous contrast. 3D reconstructed CTA MIP acquisitions were also performed. Auto Exposure Controls were utilized during the CT exam to meet ALARA standards for radiation dose reduction. INDICATION: Left-sided chest pain. FINDINGS: There are no intraluminal pulmonary arterial filling defects. There were no findings of pulmonary arterial embolus. 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 No hilar, mediastinal or axillary lymphadenopathy. No consolidating pneumonia. No pulmonary nodule or suspicious lung mass. No acute chest wall pathology. Visualized upper abdomen shows partially visualized left renal calculi. IMPRESSION: Negative for PE or other acute chest pathology, left-sided nephrolithiasis noted. Dictated by: Dictated on workstation # [id number] Dict: 12/18/20 1830 Trans: 12/18/20 1847 CVB [id number] Interpreted by: LENA CINTRON Electronically signed by: LENA CINTRON 12/18/207 NAME: EUGENE FUENTES [facility] REC#: [id number] PT STATUS: REG ER : 1970 PHYSICIAN: ELENA CHRISTOPHER CATTERY OPERATOR ADMIT DATE: 12/18/20/ER Signed Date of Exam:12/18/20 CHEST 1 VIEW, AP/PA ONLY INDICATION: Chest pain. TECHNIQUE: Single view chest 1:31 p.m. CORRELATION STUDY: 12/02/2020 FINDINGS: Heart size and mediastinum are stable. Vasculature is slightly increased from prior. There is a loop recorder device over the cardiac apex. Given the limited depth of inspiration, lung saucedo overall are clear. No infiltrate. IMPRESSION: 1. Stable heart size with vasculature slightly increased from prior. Dictated by: Dictated on workstation # [id number] Dict: 12/18/20 1331 Trans: 12/18/20 1633 IMS [id number] Interpreted by: ERICA HOWELL DO Electronically signed by: ERICA HOWELL DO 12/18/20 1633 ECG Impression ECG Initial ECG Rhythm: Normal Sinus A/P-Cardiology Assessment/Admission Diagnosis Chest pain of undetermined etiology - no evidence of ACS - by description appears to be muscular Recently diagnosed with glioblastoma 2 weeks ago and had a recent craniotomy performed at [facility] - following with Dr. Betancourt at the Cancer center DVT in her left lower extremity dx last week and had an IVC filter placed by Dr. Lopez H/O syncopal episode in the past of undetermined etiology, no recent episodes - s/p ILR implant on 09-12-2019 H/O chronic chest discomfort H/O HH and gastritis Card cath of 2013 and of November 2017 did not show any angiographically significant CAD, LVEF was 60% on cath of November 2017 TIA in September 2018. Event monitor put on at that time that has shown PAF OAC wiyh Eliquis Chronic exertional shortness of breath DM II Obesity with BMI approx 48 Chronic tobacco use (smoking) Abnormal ECG. ECG of 12/06/17 shows NSR with mild, nonspecific ST and T abn in the anterolat leads Chronic back pain Chronic R arm discomfort following injury to R arm in 2017 treated with lazaro placement to the R upper arm (according to the patient) CPAP tx Enlarged thyroid- reports dko-sartuhzbz-vjaqnblzm at [facility] Discussion and Recomendations Chest pain of undetermined etiology - no evidence of ACS OK to discharge home with out pt f/u Continue current home medications including OAC She would like to have her stitches removed - management per medical services Management of glioblastoma with oncology services Out pt f/u with us in 2 - 3 weeks BOB GUZMAN Dec 19, 2020 07:49
[2020-12-19] MEDS: NICOTINE 7 MG (NICODERM) PATCH TD SCH (08:14)
[2020-12-19 08:21] VITALS: BP 113/58
[2020-12-19] MEDS ORDERED: NICOTINE PATCH REMOVAL TP SCH (08:59)
[2020-12-19] MEDS ORDERED: PROMETHAZINE 25 MG (PHENERGAN) TAB PO PRN (09:00)
[2020-12-19] MEDS ORDERED: polyethylene glycoL POWDER 17 GM (MIRALAX) PACK PO SCH (09:00)
[2020-12-19] MEDS ORDERED: SENNA W/DOCUSATE (SENOKOT S) TABLET PO SCH (09:00)
[2020-12-19] MEDS ORDERED: APIXABAN 5 MG (ELIQUIS) TABLET PO NR (11:30)
[2020-12-19] MEDS ORDERED: APIX5TAB PO (11:43)
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
[2020-12-19 12:20] VITALS: BP 136/77
[2020-12-19 12:25] VITALS: BP 136/77
== END 2020-12-19 12:13 | disposition home or self-care (01) ==
LOC: EDUNIT# 12:44 → ER 12:46 → UNDOADMOB 14:45 → 4TH 14:45 → UNDODISOB 12-19 12:30
PROVIDERS: ADMIT Internal Medicine; ATTEND Internal Medicine
DX: R07.9 Chest pain, unspecified (principal); I82.402 Acute embolism and thrombosis of unspecified deep veins of left lower extremity; I48.91 Unspecified atrial fibrillation; E78.00 Pure hypercholesterolemia, unspecified; I10 Essential (primary) hypertension; J44.9 Chronic obstructive pulmonary disease, unspecified; G47.30 Sleep apnea, unspecified; G43.909 Migraine, unspecified, not intractable, without status migrainosus; K21.9 Gastro-esophageal reflux disease without esophagitis; K59.09 Other constipation; M19.90 Unspecified osteoarthritis, unspecified site; G89.29 Other chronic pain; E11.9 Type 2 diabetes mellitus without complications; D64.9 Anemia, unspecified; E66.9 Obesity, unspecified; F41.9 Anxiety disorder, unspecified; F32.9 Major depressive disorder, single episode, unspecified; F17.210 Nicotine dependence, cigarettes, uncomplicated; Z79.01 Long term (current) use of anticoagulants; Z79.899 Other long term (current) drug therapy; Z79.84 Long term (current) use of oral hypoglycemic drugs; Z79.891 Long term (current) use of opiate analgesic; Z90.710 Acquired absence of both cervix and uterus; Z98.51 Tubal ligation status; Z86.73 Personal history of transient ischemic attack (TIA), and cerebral infarction without residual deficits
CPT/HCPCS: 36410; 71045; 71275; 76937; 80053 ×2; 80061; 83735; 83874; 83880; 84484 ×2; 85007; 85025; 85027; 85610; 85730; 93005 ×2; 93041; 99284; C1751; 36415; G0378

== ENCOUNTER → 2021-01-01 | Outpatient (CLI) | payer MEDICARE, MEDICAID | LOC: RAD 08:45 | PROVIDERS: ATTEND Internal Medicine Hematology & Oncology | DX: C71.9 Malignant neoplasm of brain, unspecified (principal); Z53.9 Procedure and treatment not carried out, unspecified reason ==

== ENCOUNTER 2021-01-05 09:00 | Emergency (ER) | payer MEDICARE, MEDICAID ==
[~2021-01-05] VITALS: Ht 165 cm; Wt 135.3 kg
[~2021-01-05 09:00] MED LIST changes: -ARIP10TA17 PO; +ARIP10TA55 PO; -OMEP40CA27 PO; +OMEP40CA6 PO
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
[2021-01-05] MEDS ORDERED: PROCHLORPERAZINE 10 MG/2ML INJ (COMPAZINE) IV ONE (10:00)
[2021-01-05] MEDS ORDERED: KETOROLAC 30 MG/ML VIAL IVP ONE (10:00)
--- NOTE | 2021-01-05 10:31 | Diagnostic Imaging Report ---
Clinical indication: Patient with diagnosis of glioblastoma 3 weeks ago and has surgery for removal. Patient has no headache. Exam: Axial CT scan of the brain without IV contrast with coronal and sagittal reformatted images. Auto Exposure Controls were utilized during the CT exam to meet ALARA standards for radiation dose reduction. Comparison: Head CT without contrast dated 12/02/2016.. Findings: There are interval postoperative changes with craniotomy involving the left posterior aspect of the head. There is minimal low-density fluid beneath the left craniotomy flap. There is no evidence of intracranial hemorrhage, brain herniation, midline shift. There is no hydrocephalus. There is abnormal parenchymal resection changes involving left parietal lobe with resolution of previously seen prominent cystic structure in the region. There is patchy low density involving the medial left parieto-occipital region. Unknown if this represents infarct or just slight progression of edema. There is interval progression of mild edema involving the posterior left temporal lobe and left temporal lobe. There is similar parenchymal low density involving left parietal lobe region. Stable slight interposition of left trigone due to mass effect from the posterior cerebral hemisphere edema. Again noted is small subcutaneous circumscribed low-density lesion involving the left midline suboccipital soft tissue/upper neck region. Sebaceous cyst or epidermoid may be considered. There is mild mucosal thickening involving both maxillary sinuses which is stable. Mastoid air cells are clear. IMPRESSION: 1: There are interval postoperative changes with interval resection of the cystic mass in the left parietal lobe. There is slight progression of parenchymal low density involving the parasagittal left parietal lobe in the occipital region. Unknown if this represents an infarct versus slight increased parenchymal edema. MRI of the brain with and without IV contrast would better evaluate. 2: There is slight increased parenchymal edema involving the posterior left temporal lobe, left occipital lobe region and grossly stable in the left parietal area. There is no brain herniation midline shift. 3: There is no hydrocephalus. Dictated by: Dictated on workstation # [id number]
[2021-01-05 11:34] LABS: BASOPHILS # (AUTO) 0.1 10^3/uL (0.0-0.1); BASOPHILS % (AUTO) 1 % (0-10); EOSINOPHILS # (AUTO) 0.2 10^3/uL (0.0-0.3); EOSINOPHILS % (AUTO) 2 % (0-10); HEMATOCRIT 32 % (35-52); HEMOGLOBIN 9.4 g/dL (11.5-16.0); LYMPHOCYTES # (AUTO) 3.1 10^3/uL (1.0-4.0); LYMPHOCYTES % (AUTO) 29 % (12-44); MEAN CORPUSCULAR HEMOGLOBIN 20 pg (25-34); MEAN CORPUSCULAR HGB CONC 29 g/dL (32-36); MEAN CORPUSCULAR VOLUME 70 fL (80-99); MONOCYTES # (AUTO) 0.7 10^3/uL (0.0-1.0); MONOCYTES % (AUTO) 6 % (0-12); NEUTROPHILS # (AUTO) 6.8 10^3/uL (1.8-7.8); NEUTROPHILS % (AUTO) 62 % (42-75); PLATELET COUNT 339 10^3/uL (130-400)
[2021-01-05 11:37] LABS: ALBUMIN 3.7 GM/DL (3.2-4.5); CHLORIDE 109 MMOL/L (98-107)
[2021-01-05 11:38] LABS: POTASSIUM 4.1 MMOL/L (3.6-5.0); SODIUM 140 MMOL/L (135-145)
[2021-01-05 11:39] LABS: CALCIUM 8.7 MG/DL (8.5-10.1)
[2021-01-05 11:40] LABS: GLUCOSE 127 MG/DL (70-105); TOTAL PROTEIN 6.8 GM/DL (6.4-8.2)
[2021-01-05 11:41] LABS: CARBON DIOXIDE 21 MMOL/L (21-32)
[2021-01-05 11:42] LABS: BILIRUBIN,TOTAL 0.3 MG/DL (0.1-1.0)
[2021-01-05 11:43] LABS: ALKALINE PHOSPHATASE 111 U/L (40-136); GFR ESTIMATED > 60
[2021-01-05 11:44] LABS: BUN/CREATININE RATIO 12
[2021-01-05 11:46] LABS: ALANINE AMINOTRANSFERASE 24 U/L (0-55)
[2021-01-05 13:32] VITALS: BP 151/94
== END 2021-01-05 13:38 | disposition home or self-care (01) ==
LOC: EDUNIT# 09:04 → ER 09:05
DX: R51.9 Headache, unspecified (principal); I10 Essential (primary) hypertension; E11.9 Type 2 diabetes mellitus without complications; J44.9 Chronic obstructive pulmonary disease, unspecified; I48.0 Paroxysmal atrial fibrillation; E78.00 Pure hypercholesterolemia, unspecified; G89.29 Other chronic pain; M54.9 Dorsalgia, unspecified; K21.9 Gastro-esophageal reflux disease without esophagitis; F41.9 Anxiety disorder, unspecified; F32.9 Major depressive disorder, single episode, unspecified; E66.01 Morbid (severe) obesity due to excess calories; Z91.19 Patient's noncompliance with other medical treatment and regimen; Z87.891 Personal history of nicotine dependence; Z77.22 Contact with and (suspected) exposure to environmental tobacco smoke (acute) (chronic); Z86.69 Personal history of other diseases of the nervous system and sense organs; Z87.820 Personal history of traumatic brain injury; Z86.011 Personal history of benign neoplasm of the brain; Z98.890 Other specified postprocedural states; Z68.42 Body mass index [BMI] 45.0-49.9, adult; Z79.01 Long term (current) use of anticoagulants; Z79.51 Long term (current) use of inhaled steroids; Z79.891 Long term (current) use of opiate analgesic; Z79.84 Long term (current) use of oral hypoglycemic drugs; Z79.899 Other long term (current) drug therapy
CPT/HCPCS: 36415; 70450; 80053; 84439; 84443; 85025

== ENCOUNTER 2021-01-14 07:36 | Emergency (ER) | payer MEDICARE, MEDICAID ==
[~2021-01-14] VITALS: Ht 165 cm; Wt 140.0 kg
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
[2021-01-14] MEDS ORDERED: cefTRIAXone 1,000 MG in WATER (STERILE) FOR INJECTION 10 ML IV ONE (08:00)
[2021-01-14] MEDS ORDERED: NS IV 1000 ML 1,000 ML IV SCH (08:00)
[2021-01-14] MEDS ORDERED: ONDANSETRON 4 MG/2 ML (SDV) Z0FRAN IVP ONE (08:00)
[2021-01-14] MEDS ORDERED: fentaNYL INJ 100 MCG/2 ML AMP IVP ONE (08:00)
[2021-01-14 08:38] LABS: BASOPHILS # (AUTO) 0.1 10^3/uL (0.0-0.1); BASOPHILS % (AUTO) 1 % (0-10); EOSINOPHILS # (AUTO) 0.1 10^3/uL (0.0-0.3); EOSINOPHILS % (AUTO) 1 % (0-10); HEMATOCRIT 36 % (35-52); HEMOGLOBIN 10.1 g/dL (11.5-16.0); LYMPHOCYTES # (AUTO) 1.8 10^3/uL (1.0-4.0); LYMPHOCYTES % (AUTO) 13 % (12-44); MEAN CORPUSCULAR HEMOGLOBIN 21 pg (25-34); MEAN CORPUSCULAR HGB CONC 28 g/dL (32-36); MEAN CORPUSCULAR VOLUME 72 fL (80-99); MEAN PLATELET VOLUME 10.9 fL (9.0-12.2); MONOCYTES # (AUTO) 0.4 10^3/uL (0.0-1.0); MONOCYTES % (AUTO) 3 % (0-12); NEUTROPHILS # (AUTO) 11.2 10^3/uL (1.8-7.8); NEUTROPHILS % (AUTO) 82 % (42-75); PLATELET COUNT 335 10^3/uL (130-400); WHITE BLOOD COUNT 13.7 10^3/uL (4.3-11.0)
[2021-01-14 08:51] LABS: ALBUMIN 3.9 GM/DL (3.2-4.5)
[2021-01-14 08:52] LABS: POTASSIUM 4.2 MMOL/L (3.6-5.0)
[2021-01-14 08:53] LABS: CALCIUM 9.4 MG/DL (8.5-10.1)
[2021-01-14 08:54] LABS: TOTAL PROTEIN 7.4 GM/DL (6.4-8.2)
[2021-01-14 08:56] LABS: BILIRUBIN,TOTAL 0.3 MG/DL (0.1-1.0)
[2021-01-14 08:58] LABS: CREATININE SERUM 1.22 MG/DL (0.60-1.30)
--- NOTE | 2021-01-14 09:14 | Diagnostic Imaging Report ---
EXAMINATION: CT abdomen and pelvis without contrast. TECHNIQUE: Multiple contiguous axial images were obtained through the abdomen and pelvis without the use of intravenous contrast. All CT scans use one or more of the following dose optimizing techniques: automated exposure control, MA and/or KvP adjustment based on patient size and exam type or iterative reconstruction. HISTORY: Flank pain. COMPARISON: 08/02/2016. FINDINGS: Limited views of the lower thorax are unremarkable. The liver is steatotic. No focal liver lesions are seen. There is no biliary ductal dilation. Gallbladder is surgically absent. Pancreas is normal. Spleen is normal. Adrenal glands are normal. There is an obstructing 7 mm distal right ureteral stone with moderate hydronephrosis and severe hydroureter. Left kidney is mildly atrophic with areas of cortical scarring and several nonobstructing stones. No left-sided hydronephrosis. Urinary bladder is normal. Visualized bowel is normal in caliber without obstruction or inflammation. The appendix is normal. There is a large fat containing ventral abdominal hernia. No free fluid or air. No abdominal or pelvic lymphadenopathy. Aorta is normal in caliber without aneurysm. There are no suspicious osseus lesions. IMPRESSION: Obstructing 7 mm distal right ureteral stone with moderate right hydronephrosis and severe hydroureter. Dictated by: Dictated on workstation # [id number]
[2021-01-14] MEDS ORDERED: OXYC1TAB16 PO (10:57)
[2021-01-14] MEDS ORDERED: CEPH500T PO (10:57)
[2021-01-14] MEDS ORDERED: TMSL.4C PO (10:57)
[2021-01-14 11:07] LABS: BILIRUBIN,URINE NEGATIVE (NEGATIVE); CLARITY,URINE SL CLOUDY; COLOR,URINE AMBER; GLUCOSE, URINE (UA) NEGATIVE (NEGATIVE); KETONES,URINE NEGATIVE (NEGATIVE); LEUKOCYTE ESTERASE ,URINE TRACE (NEGATIVE); NITRITE,URINE NEGATIVE (NEGATIVE); PROTEIN,URINE 2+ (NEGATIVE)
[2021-01-14 11:22] LABS: BACTERIA,URINE NEGATIVE /HPF; RBC,URINE TNTC /HPF; WBC,URINE 0-2 /HPF
[2021-01-14 11:25] VITALS: BP 115/67
--- NOTE | 2021-01-14 11:56 | Diagnostic Imaging Report ---
Indication: Abdominal pain Comparison: 06/17/2020 TECHNIQUE: 2 frontal radiograph of abdomen dated 01/14/2021 FINDINGS: Surgical clips are again noted overlying the right upper quadrant abdomen. Several calcifications are identified overlying the left renal shadow, similar to the prior examination with the largest calcification measuring near 6 mm. No suspicious calcifications overlying the right renal shadow. A 6 mm calcification is noted overlying the right pelvis, new from the prior examination. Given location, this could be overlying the distal right ureter. Nonobstructive bowel gas pattern. No free air. No acute osseous abnormality. IMPRESSION: New 6 mm calcification overlying the right pelvis. Finding is suspect for a distal right ureterolith. Alternatively, new phlebolith or overlying enteric contents would be an additional consideration. Recommend clinical correlation. If further evaluation is desired, a CT of abdomen and pelvis could be obtained. Multiple left-sided renal calculi, appearing relatively similar to the prior exam. Dictated by: Dictated on workstation # [id number]
== END 2021-01-14 11:25 | disposition home or self-care (01) ==
LOC: EDUNIT# 07:36 → ER 07:37
DX: N13.2 Hydronephrosis with renal and ureteral calculous obstruction (principal); E66.01 Morbid (severe) obesity due to excess calories; I48.91 Unspecified atrial fibrillation; J44.9 Chronic obstructive pulmonary disease, unspecified; E78.00 Pure hypercholesterolemia, unspecified; I10 Essential (primary) hypertension; K21.9 Gastro-esophageal reflux disease without esophagitis; F41.9 Anxiety disorder, unspecified; F32.9 Major depressive disorder, single episode, unspecified; E11.9 Type 2 diabetes mellitus without complications; G89.29 Other chronic pain; M54.9 Dorsalgia, unspecified; Z68.43 Body mass index [BMI] 50.0-59.9, adult; Z87.820 Personal history of traumatic brain injury; Z87.891 Personal history of nicotine dependence; Z79.01 Long term (current) use of anticoagulants; Z79.899 Other long term (current) drug therapy; Z79.84 Long term (current) use of oral hypoglycemic drugs; Z79.891 Long term (current) use of opiate analgesic
CPT/HCPCS: 36415; 74018; 74176; 80053; 81000; 84703; 85025; 96374; 96375

== ENCOUNTER 2021-01-16 07:16 | Outpatient (CLI) | payer MEDICARE, MEDICAID ==
[~2021-01-16] VITALS: Ht 165.1 cm; Wt 138.6 kg
[~2021-01-16 07:16] MED LIST changes: +TMSL.4C PO
[2021-01-16] MEDS ORDERED: KETO10TA PO (16:08)
== END 2021-01-16 11:20 | disposition home or self-care (01) ==
LOC: PREOP 07:16
PROVIDERS: ATTEND Urology
DX: Z01.818 Encounter for other preprocedural examination (principal)

== ENCOUNTER 2021-01-16 13:19 | Emergency (ER) | payer MEDICARE, MEDICAID ==
[~2021-01-16] VITALS: Ht 165 cm; Wt 138.6 kg
[2021-01-16] MEDS ORDERED: fentaNYL INJ 100 MCG/2 ML AMP IVP ONE (14:45)
[2021-01-16] MEDS ORDERED: KETOROLAC 30 MG/ML VIAL IVP ONE (14:45)
[2021-01-16] MEDS ORDERED: NS IV 1000 ML 1,000 ML IV SCH (14:45)
[2021-01-16 14:46] LABS: BASOPHILS # (AUTO) 0.1 10^3/uL (0.0-0.1); BASOPHILS % (AUTO) 1 % (0-10); EOSINOPHILS # (AUTO) 0.2 10^3/uL (0.0-0.3); EOSINOPHILS % (AUTO) 2 % (0-10); HEMATOCRIT 32 % (35-52); HEMOGLOBIN 9.3 g/dL (11.5-16.0); LYMPHOCYTES # (AUTO) 3.5 10^3/uL (1.0-4.0); LYMPHOCYTES % (AUTO) 41 % (12-44); MEAN CORPUSCULAR HEMOGLOBIN 21 pg (25-34); MEAN CORPUSCULAR HGB CONC 29 g/dL (32-36); MEAN CORPUSCULAR VOLUME 72 fL (80-99); MEAN PLATELET VOLUME 11.1 fL (9.0-12.2); MONOCYTES # (AUTO) 0.8 10^3/uL (0.0-1.0); MONOCYTES % (AUTO) 9 % (0-12); NEUTROPHILS % (AUTO) 47 % (42-75); PLATELET COUNT 346 10^3/uL (130-400); WHITE BLOOD COUNT 8.5 10^3/uL (4.3-11.0)
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
[2021-01-16 14:50] LABS: POTASSIUM 4.3 MMOL/L (3.6-5.0)
[2021-01-16 14:51] LABS: CALCIUM 8.7 MG/DL (8.5-10.1)
[2021-01-16 14:56] LABS: CREATININE SERUM 1.15 MG/DL (0.60-1.30)
[2021-01-16] MEDS ORDERED: KETO10TA PO (16:08)
[2021-01-16] MEDS ORDERED: oxyCODONE/APAP 5/325MG (PERCOCET 5) TABLET ONE (16:15)
[2021-01-16] MEDS ORDERED: oxyCODONE/APAP 5/325MG (PERCOCET 5) TABLET PO ONE (16:15)
[2021-01-16] MEDS ORDERED: oxyCODONE/APAP 10/325MG (PERCOCET 10) TABLET PO ONE (16:15)
[2021-01-16 16:18] VITALS: BP 119/110
== END 2021-01-16 16:19 | disposition home or self-care (01) ==
LOC: EDUNIT# 13:19 → ER 13:22
DX: N13.2 Hydronephrosis with renal and ureteral calculous obstruction (principal); G47.30 Sleep apnea, unspecified; J44.9 Chronic obstructive pulmonary disease, unspecified; I10 Essential (primary) hypertension; E78.00 Pure hypercholesterolemia, unspecified; I48.0 Paroxysmal atrial fibrillation; K21.9 Gastro-esophageal reflux disease without esophagitis; G89.29 Other chronic pain; M54.9 Dorsalgia, unspecified; E11.9 Type 2 diabetes mellitus without complications; F41.9 Anxiety disorder, unspecified; F32.9 Major depressive disorder, single episode, unspecified; E66.01 Morbid (severe) obesity due to excess calories; Z87.820 Personal history of traumatic brain injury; Z68.43 Body mass index [BMI] 50.0-59.9, adult; Z79.01 Long term (current) use of anticoagulants; Z79.899 Other long term (current) drug therapy; Z79.891 Long term (current) use of opiate analgesic; Z79.84 Long term (current) use of oral hypoglycemic drugs
CPT/HCPCS: 36415; 80048; 85025

== ENCOUNTER 2021-01-17 11:02 | Day surgery (SDC) | payer MEDICARE, MEDICAID ==
[2021-01-17] VITALS (10 sets, daily range): BP systolic 112–153; BP diastolic 57–113
[~2021-01-17] VITALS: Ht 165.1 cm; Wt 138.6 kg
--- NOTE | 2021-01-17 11:01 | Progress Note-Pre Operative ---
Pre-Operative Progress Note H&P Reviewed The H&P was reviewed, patient examined and no changes noted. Date Seen by Provider: Jan 17, 2021 Time Seen by Provider: 11:57 Date H&P Reviewed: Jan 17, 2021 Time H&P Reviewed: 11:57 Pre-Operative Diagnosis: RT DISTAL URETERAL STONE HAI SALDAÑA MD Jan 17, 2021 11:01
[~2021-01-17 11:02] MED LIST changes: +KETO10TA PO
[2021-01-17] MEDS ORDERED: LACTATED RINGERS 1,000 ML IV PRN (11:15)
[2021-01-17] MEDS ORDERED: cefTRIAXone 1,000 MG in WATER (STERILE) FOR INJECTION 10 ML IV ONE (11:15)
[2021-01-17] MEDS ORDERED: fentaNYL INJ 100 MCG/2 ML AMP IV ONE (11:30)
--- NOTE | 2021-01-17 11:57 | Diagnostic Imaging Report ---
Indication: Preop for kidney stones. Time of exam: 11:37 AM Multiple calcific densities overlie the left kidney, the upper mid and lower poles. No definite calculi are seen along the course of the ureter. Calcific density in the right hemipelvis appears to have migrated from the upper pelvis to lower pelvis consistent with a migrated kidney stone. This most likely is located near the UVJ and measures approximately 8 mm. Impression: Left-sided renal calculi. There is also a calculus in the right hemipelvis located near the UVJ. Dictated by: Dictated on workstation # [id number]
[2021-01-17] MEDS ORDERED: MIDAZOLAM 2 MG/2 ML (VERSED) VIAL ONE (12:06)
[2021-01-17] MEDS ORDERED: fentaNYL INJ 100 MCG/2 ML AMP ONE ×2 (12:06→12:32)
[2021-01-17] MEDS ORDERED: proPOfol 200 MG/20 ML (DIPRIVAN) VIAL IV ONE (12:20)
[2021-01-17] MEDS ORDERED: ONDANSETRON 4 MG/2 ML (SDV) Z0FRAN ONE (12:21)
[2021-01-17] MEDS ORDERED: LIDOCAINE PF 2% 5 ML (XYLOCAINE) VIAL ONE (12:21)
[2021-01-17] MEDS ORDERED: SEVOFLURANE (ULTANE) 15 ML INHAL SOLN ONE (12:53)
[2021-01-17] MEDS ORDERED: RT-ALBUTEROL SULF 2.5 MG/3 ML PRE-MIX VIAL ONE (13:10)
--- NOTE | 2021-01-17 13:10 | Anesthesia-General Post-Op ---
General Patient Condition Mental Status/LOC: Same as Preop Cardiovascular: Satisfactory Nausea/Vomiting: Absent Respiratory: Satisfactory Pain: Controlled Complications: Absent Post Op Complications Complications None Follow Up Care/Instructions Patient Instructions None needed. Anesthesia/Patient Condition Patient Condition Patient is doing well, no complaints, stable vital signs, no apparent adverse anesthesia problems. No complications reported per nursing. BETH MARTINEZ CRNA Jan 17, 2021 13:10
[2021-01-17] MEDS ORDERED: morphine INJ 10 MG/ML 1ML (SYR OR VIAL) IVP ONE (13:15)
[2021-01-17] MEDS ORDERED: RT-ALBUTEROL SULF 2.5 MG/3 ML PRE-MIX VIAL INH ONE (13:15)
[2021-01-17] MEDS ORDERED: ONDANSETRON 4 MG/2 ML (SDV) Z0FRAN IVP PRN (13:15)
--- NOTE | 2021-01-17 13:23 | Progress Note-Post Operative ---
Post-Operative Progess Note Surgeon (s)/Improvement Engineer (s) Surgeon HAI SALDAÑA MD Improvement Engineer: NONE Pre-Operative Diagnosis RT DISTAL URETERAL STONE Post-Operative Diagnosis SAME Procedure & Operative Findings Date of Procedure 01/17/21 Procedure Performed/Findings RT URETEROSCOPY WITH STONE LITHOTRIPSY AND BASKET Anesthesia Type GENERAL Estimated Blood Loss Estimated blood loss (mL): NONE Specimens/Packing Specimens Removed STONE Packing: NONE HAI SALDAÑA MD Jan 17, 2021 13:23
--- NOTE | 2021-01-17 13:26 | Discharge Inst-Urology ---
Discharge Inst-Urology Reconcile Patient Problems Problems Reviewed?: Yes Final Diagnosis RT DISTAL URETERAL STONE Patient Instructions/Follow Up Plan/Assessment/Instructions Please make appointment to been seen in office in 2 weeks. May resume Eliquis in 48 hours if no bleeding Stone for analysis post seen by patient Increase oral fluids for 48 hours and then as needed. Diet and Activity as tolerated. If questions or concerns contact your physician Or seek help at emergency department. HAI SALDAÑA MD Jan 17, 2021 13:25
--- NOTE | 2021-01-17 13:35 | Diagnostic Imaging Report ---
INDICATION: Fluoroscopy during stone basket procedure. Fluoroscopy was provided in the OR during a stone basket procedure. 24 seconds of fluoroscopic time was utilized. No images were obtained. IMPRESSION: Fluoroscopy during ureteral stone basket procedure. Dictated by: Dictated on workstation # [id number]
--- NOTE | 2021-01-17 16:12 | OPERATIVE REPORT ---
DATE OF SERVICE: 01/17/2021 PREOPERATIVE DIAGNOSIS: Right distal ureteral stone. POSTOPERATIVE DIAGNOSIS: Right distal ureteral stone. OPERATION PERFORMED: Cystoscopy, right ureteroscopy with stone lithotripsy and basket. SURGEON: Arley Saldaña MD ANESTHESIA: General. COMPLICATIONS: None. DESCRIPTION OF PROCEDURE: Under satisfactory general anesthesia, the patient in lithotomy position, genitalia were prepped and draped in the usual sterile fashion. Cystoscope was introduced in the bladder. Bladder was examined. It was normal except for sluggish efflux on the right side. Using the foroblique lens, I dilated the right ureteral orifice intramural portion to accommodate a 6.9 Mexican semi-rigid ureteroscope. I visualized the stone and started breaking it up with lithoclast. It was a pretty hard stone, but I was able to reduce its size to be amenable for basket. I passed a 3-Mexican basket, engaged the stone and extracted it easily. I went back with ureteroscope beyond the area of the stone up toward the mid ureter and back. There were no further fragments, no stones, no injury to the ureter. There was a good efflux after removing the ureteroscope. I reinserted the cystoscope to drain the bladder. The patient tolerated the procedure and anesthesia well and was sent to the recovery room in stable condition. Job ID: [id number] DocumentID: [id number] Dictated Date: 01/17/2021 13:02:15 Incinerator Plant Laborer Date: 01/17/2021 16:10:30 Dictated By: ARLEY SALDAÑA MD
== END 2021-01-17 15:00 | disposition home or self-care (01) ==
LOC: SDC 11:02
PROVIDERS: ATTEND Urology
DX: N20.2 Calculus of kidney with calculus of ureter (principal); I10 Essential (primary) hypertension; G47.33 Obstructive sleep apnea (adult) (pediatric); J44.9 Chronic obstructive pulmonary disease, unspecified; K21.9 Gastro-esophageal reflux disease without esophagitis; E11.9 Type 2 diabetes mellitus without complications; E66.01 Morbid (severe) obesity due to excess calories; I48.91 Unspecified atrial fibrillation; M19.90 Unspecified osteoarthritis, unspecified site; E04.9 Nontoxic goiter, unspecified; I25.10 Atherosclerotic heart disease of native coronary artery without angina pectoris; F17.210 Nicotine dependence, cigarettes, uncomplicated; Z85.841 Personal history of malignant neoplasm of brain; Z86.73 Personal history of transient ischemic attack (TIA), and cerebral infarction without residual deficits; Z68.43 Body mass index [BMI] 50.0-59.9, adult; Z79.899 Other long term (current) drug therapy; Z79.84 Long term (current) use of oral hypoglycemic drugs; Z79.891 Long term (current) use of opiate analgesic
CPT/HCPCS: 74018; 76000; 82947; 87081

== ENCOUNTER 2021-01-22 08:14 | Emergency (ER) | payer MEDICARE, MEDICAID ==
[~2021-01-22] VITALS: Ht 157 cm; Wt 138.6 kg
--- NOTE | 2021-01-22 08:59 | Diagnostic Imaging Report ---
INDICATION: Chest pain. COMPARISON: 12/18/2020. FINDINGS: Single view of the chest demonstrates a loop recorder over the left diaphragm and ventricle. The lungs are clear. The heart is normal. There is no pneumothorax. Osseous structures are age appropriate. IMPRESSION: Negative chest. Dictated by: Dictated on workstation # [id number]
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
[2021-01-22] MEDS ORDERED: ASPIRIN 81 MG CHEW (CHILDREN'S ASA) PO ONE (09:15)
[2021-01-22 09:56] LABS: BASOPHILS # (AUTO) 0.1 10^3/uL (0.0-0.1); BASOPHILS % (AUTO) 1 % (0-10); EOSINOPHILS % (AUTO) 0 % (0-10); HEMATOCRIT 32 % (35-52); HEMOGLOBIN 9.3 g/dL (11.5-16.0); LYMPHOCYTES # (AUTO) 1.7 10^3/uL (1.0-4.0); LYMPHOCYTES % (AUTO) 17 % (12-44); MEAN CORPUSCULAR HEMOGLOBIN 21 pg (25-34); MEAN CORPUSCULAR HGB CONC 29 g/dL (32-36); MEAN CORPUSCULAR VOLUME 71 fL (80-99); MEAN PLATELET VOLUME 10.3 fL (9.0-12.2); MONOCYTES # (AUTO) 0.5 10^3/uL (0.0-1.0); MONOCYTES % (AUTO) 5 % (0-12); NEUTROPHILS # (AUTO) 7.4 10^3/uL (1.8-7.8); NEUTROPHILS % (AUTO) 76 % (42-75); PLATELET COUNT 447 10^3/uL (130-400); WHITE BLOOD COUNT 9.7 10^3/uL (4.3-11.0)
[2021-01-22 10:02] LABS: ALBUMIN 3.8 GM/DL (3.2-4.5); CHLORIDE 113 MMOL/L (98-107); POTASSIUM 3.6 MMOL/L (3.6-5.0); SODIUM 140 MMOL/L (135-145)
[2021-01-22 10:04] LABS: CALCIUM 9.2 MG/DL (8.5-10.1)
[2021-01-22 10:05] LABS: GLUCOSE 151 MG/DL (70-105); INR 1.2 (0.8-1.4); PROTHROMBIN TIME PATIENT 15.5 SEC (12.2-14.7)
[2021-01-22 10:06] LABS: BILIRUBIN,TOTAL 0.3 MG/DL (0.1-1.0); CARBON DIOXIDE 19 MMOL/L (21-32)
[2021-01-22 10:08] LABS: ALKALINE PHOSPHATASE 80 U/L (40-136); CREATININE SERUM 0.91 MG/DL (0.60-1.30); GFR ESTIMATED > 60
[2021-01-22 10:09] LABS: BUN/CREATININE RATIO 13
[2021-01-22 10:11] LABS: ALANINE AMINOTRANSFERASE 16 U/L (0-55); MAGNESIUM 1.8 MG/DL (1.6-2.4)
[2021-01-22] MEDS ORDERED: KETOROLAC 30 MG/ML VIAL IVP ONE (10:45)
[2021-01-22 11:46] VITALS: BP 143/87
== END 2021-01-22 11:46 | disposition home or self-care (01) ==
LOC: EDUNIT# 08:14 → ER 08:15
DX: R07.9 Chest pain, unspecified (principal); K52.9 Noninfective gastroenteritis and colitis, unspecified; J44.9 Chronic obstructive pulmonary disease, unspecified; I10 Essential (primary) hypertension; E78.00 Pure hypercholesterolemia, unspecified; G43.909 Migraine, unspecified, not intractable, without status migrainosus; K21.9 Gastro-esophageal reflux disease without esophagitis; G89.29 Other chronic pain; M54.9 Dorsalgia, unspecified; F41.9 Anxiety disorder, unspecified; F32.9 Major depressive disorder, single episode, unspecified; E11.9 Type 2 diabetes mellitus without complications; Z87.820 Personal history of traumatic brain injury; Z79.899 Other long term (current) drug therapy; Z79.891 Long term (current) use of opiate analgesic; Z79.84 Long term (current) use of oral hypoglycemic drugs
CPT/HCPCS: 36415; 71045; 80053; 83735; 83874; 84484; 85025; 85610; 85730; 87015; 87045; 87046; 87324; 87449; 87493; 87899; 93005; 93041

== ENCOUNTER 2021-02-10 05:52 | Outpatient (CLI) | payer MEDICARE, MEDICAID ==
[~2021-02-10] VITALS: Ht 152.4 cm; Wt 133.8 kg
[~2021-02-10 05:52] MED LIST changes: -SULF1TAB35 PO
[2021-02-10] MEDS ORDERED: [UNRECOGNIZED DRUG - CODE] PO (13:12)
[2021-02-10] MEDS ORDERED: ONDA8TAB13 PO (13:12)
[2021-02-10] MEDS ORDERED: APIX5TAB PO (13:12)
[2021-02-14] MEDS ORDERED: ACHYD1T PO (10:15)
== END 2021-02-10 13:34 | disposition home or self-care (01) ==
LOC: PREOP 05:52
PROVIDERS: ATTEND Surgery
DX: Z01.818 Encounter for other preprocedural examination (principal)

== ENCOUNTER 2021-02-14 07:59 | Day surgery (SDC) | payer MEDICARE, MEDICAID ==
[~2021-02-14] VITALS: Ht 154.2 cm; Wt 133.8 kg
[~2021-02-14 07:59] MED LIST changes: +CLINDAMYCIN 600 MG/50 ML IVPB 50 ML IV ONE; +LACTATED RINGERS 1,000 ML IV PRN; +ONDA8TAB13 PO; +[UNRECOGNIZED DRUG - CODE] PO
[2021-02-14 08:05] VITALS: BP 125/75
--- NOTE | 2021-02-14 08:39 | Progress Note-Pre Operative ---
Pre-Operative Progress Note H&P Reviewed The H&P was reviewed, patient examined and no changes noted. Time Seen by Provider: 08:37 Date H&P Reviewed: Feb 14, 2021 Time H&P Reviewed: 08:37 Pre-Operative Diagnosis: Brain CA, Venous insufficiency MELANI PLASCENCIA DO Feb 14, 2021 08:39
[2021-02-14] MEDS ORDERED: 0.9% SODIUM CHLORIDE PF INJ 20 ML VIAL ONE (08:50)
[2021-02-14] MEDS ORDERED: LIDOCAINE/EPI 1%-1:100,000 (XYLOCAINE) 20ML ONE (08:50)
[2021-02-14] MEDS ORDERED: HEParin (CENTRAL IV FLUSH) 500 UNIT/5 ML SYR ONE (08:50)
[2021-02-14] MEDS ORDERED: PROPOFOL INJECTION 50 ML IV ONE (09:00)
[2021-02-14] MEDS ORDERED: MIDAZOLAM 2 MG/2 ML (VERSED) VIAL ONE (09:00)
[2021-02-14] MEDS ORDERED: fentaNYL INJ 100 MCG/2 ML AMP ONE (09:00)
[2021-02-14] MEDS ORDERED: KETAMINE HCL 100 MG/ML 5 ML VIAL ONE (09:34)
[2021-02-14] MEDS ORDERED: KETAMINE SYRINGE 50 MG/5 ML SYRINGE ONE (09:35)
--- NOTE | 2021-02-14 10:14 | Progress Note-Post Operative ---
Post-Operative Progess Note Surgeon (s)/Registration Clerk (s) Surgeon MELANI PLASCENCIA DO Registration Clerk: none Pre-Operative Diagnosis GLIOBLASTOMA, Venous insufficiency Post-Operative Diagnosis same Procedure & Operative Findings Date of Procedure 02/14/21 Procedure Performed/Findings Montse-Cath Placement PROCEDURE: The patient was taken to the operating suite, was prepped and draped in the sterile fashion. A surgical pause was performed. Local anesthetic was infiltrated at the clavicle and along the tract to the right anterior chest, where more local was placed so the pocket could be created. Using an 18 gauge finder needle with negative inspiration the right subclavian vein was accessed on the first attempt and dark nonpulsatile blood was withdrawn. The wire was inserted and fluoroscopy assured proper placement. The needle was removed. The regular wire was inserted and fluoroscopy assured proper placement. The wire was then secured. A #11 blade scalpel was used to make an incision over the right chest and along guidewire. Cautery was used to dissect down to the pectoral fascia. A pocket was created with blunt dissection. The dilator sheath was then advanced over the wire under fluoroscopy and the dilator and wire were removed. The Groshong catheter was inserted through the sheath and the sheath was then removed. The Groshong wire was removed. The catheter was then tunneled to the right chest pocket. Fluoroscopy was used to cut to length and this was then attached to the port which was then placed within the pocket. The port was then accessed without difficulty. It was then flushed with saline and then heparin. The subcutaneous tissues were then reapproximated using 3-0 Vicryl. Finally the skin was closed with 4-0 undyed monocryl, 3 interrupted sutures. The areas were then washed and dried. Skin Affix was placed over incision. The insertion point of the neck Skin Affix was placed over the incision. The patient tolerated the procedure well without complication and was taken to recovery room in stable condition. Anesthesia Type IV sedation by CSR Estimated Blood Loss Estimated blood loss (mL): less than 5ml Specimens/Packing Specimens Removed MELANI Akins DO Feb 14, 2021 10:14
[2021-02-14] MEDS ORDERED: ACHYD1T PO (10:15)
[2021-02-14 10:16] VITALS: BP 110/41
--- NOTE | 2021-02-14 10:16 | Discharge Inst-Surgical ---
Discharge Inst-Surgical Depart Medication/Instructions New, Converted or Re-Newed RX: Transmitted to Pharmacy Patient Instructions Follow up Appt: Make appointment for 1 week. [phone] Instructions: No lifting greater than 20 pounds. No strenuous activity. May shower in 24 hours, no tub bath or soaking. Use incentive spirometer at home as directed. No Smoking Skin/Wound Care: May remove bandages in am. You need to leave the Dermabond on incision it will fall off on it's own. Symptoms to Report: Appetite Changes, Extremity Discoloration, Numbness/Tingling, Swelling Increased, Bleeding Excessive, Eyesight Changes, Pain Increased, Urine Color Change, Constipation(Persistent), Fever over 101 degree F, Pain/Pressure in chest, Urinating Difficulty, Cough Up/Vomit Blood, Heart Beat Irreg/Pounding, Pain/Pressure in jaw, Cramps in feet or legs, Lightheadedness, Pain/Pressure in shoulder, Diarrhea(Persistent), Memory Changes Suddenly, Questions/Concerns, Weight gain consecutive days, Dizziness/Fainting, Nausea/Vomiting, Shortness of Breath, Weight gain over 2 pounds If questions or concerns contact your physician Or seek help at emergency department. Activity Activity as Tolerated: Yes Activity Instructions: Avoid Stress to Incision Driving Instructions: No Driving/Refer to Dr. Rod Discharge Diet: No Restrictions Diet After 24 Hours: Clear Liquid if Nauseous If Any Problems/Questions/Issu: Contact Your Physician, Go to Emergency Room Skin/Wound Care Infection Signs and Symptoms: Increased Redness, Foul Odor of Wound, Increased Drainage, Skin Itchy or Has a Rash, Increased Swelling, Temperature Above 101 F Bathing Instructions: Shower Stitches/[place]/Dermabond Dis: MELANI Schulz DO Feb 14, 2021 10:16
[2021-02-14 10:20] VITALS: BP 122/82
[2021-02-14 10:30] VITALS: BP 123/74
[2021-02-14] MEDS ORDERED: ONDANSETRON 4 MG/2 ML (SDV) Z0FRAN IVP PRN (10:30)
[2021-02-14] MEDS ORDERED: fentaNYL INJ 100 MCG/2 ML AMP IVP ONE (10:30)
[2021-02-14] MEDS ORDERED: MEPERIDINE (DEMEROL) INJ 50 MG/ML IVP ONE (10:30)
[2021-02-14] MEDS ORDERED: morphine INJ 10 MG/ML 1ML (SYR OR VIAL) IVP ONE (10:30)
[2021-02-14 10:40] VITALS: BP_SYST 122; BP_SYST 123; BP_DIAS 74; BP_DIAS 76
[2021-02-14] MEDS ORDERED: ONDANSETRON 4 MG/2 ML (SDV) Z0FRAN IVP ONE (10:45)
[2021-02-14] MEDS ORDERED: ONDANSETRON 4 MG/2 ML (SDV) Z0FRAN ONE (10:50)
[2021-02-14 11:10] VITALS: BP 126/66
--- NOTE | 2021-02-14 12:41 | Anesthesia-General Post-Op ---
General Patient Condition Mental Status/LOC: Same as Preop Cardiovascular: Satisfactory Nausea/Vomiting: Absent Respiratory: Satisfactory Pain: Controlled Complications: Absent Post Op Complications Complications None Follow Up Care/Instructions Patient Instructions None needed. Anesthesia/Patient Condition Patient Condition Patient is doing well, no complaints, stable vital signs, no apparent adverse anesthesia problems. No complications reported per nursing. FALLON SEGAL CRNA Feb 14, 2021 12:41
--- NOTE | 2021-02-14 16:24 | Diagnostic Imaging Report ---
INDICATION: Port placement using fluoroscopy. Fluoroscopy was provided in the OR during port placement. 3 seconds of fluoroscopic time was utilized. A single image was obtained demonstrating a right chest wall port. IMPRESSION: Fluoroscopy for port placement. Dictated by: Dictated on workstation # [id number]
== END 2021-02-14 12:20 | disposition home or self-care (01) ==
LOC: SDC 07:59
PROVIDERS: ATTEND Surgery
DX: C71.9 Malignant neoplasm of brain, unspecified (principal); I87.2 Venous insufficiency (chronic) (peripheral); I10 Essential (primary) hypertension; I48.91 Unspecified atrial fibrillation; G47.33 Obstructive sleep apnea (adult) (pediatric); J44.9 Chronic obstructive pulmonary disease, unspecified; F32.9 Major depressive disorder, single episode, unspecified; E11.9 Type 2 diabetes mellitus without complications; E66.01 Morbid (severe) obesity due to excess calories; E78.00 Pure hypercholesterolemia, unspecified; J45.909 Unspecified asthma, uncomplicated; K21.9 Gastro-esophageal reflux disease without esophagitis; E07.9 Disorder of thyroid, unspecified; I48.20 Chronic atrial fibrillation, unspecified; M17.0 Bilateral primary osteoarthritis of knee; M47.816 Spondylosis without myelopathy or radiculopathy, lumbar region; D63.0 Anemia in neoplastic disease; D50.9 Iron deficiency anemia, unspecified; F17.210 Nicotine dependence, cigarettes, uncomplicated; Z79.899 Other long term (current) drug therapy; Z79.84 Long term (current) use of oral hypoglycemic drugs; Z68.43 Body mass index [BMI] 50.0-59.9, adult; Z79.01 Long term (current) use of anticoagulants; Z79.891 Long term (current) use of opiate analgesic; Z86.73 Personal history of transient ischemic attack (TIA), and cerebral infarction without residual deficits
CPT/HCPCS: 36561; 76000; 82947; 87081; C1788

== ENCOUNTER 2021-02-25 13:40 | Outpatient (RCR) | payer MEDICARE, MEDICAID ==
[2020-12-25 13:36] LABS: BASOPHILS # (AUTO) 0.1 10^3/uL (0.0-0.1); BASOPHILS % (AUTO) 1 % (0-10); EOSINOPHILS # (AUTO) 0.5 10^3/uL (0.0-0.3); EOSINOPHILS % (AUTO) 4 % (0-10); HEMATOCRIT 34 % (35-52); HEMOGLOBIN 9.9 g/dL (11.5-16.0); LYMPHOCYTES # (AUTO) 4.2 10^3/uL (1.0-4.0); LYMPHOCYTES % (AUTO) 36 % (12-44); MEAN CORPUSCULAR HEMOGLOBIN 20 pg (25-34); MEAN CORPUSCULAR HGB CONC 29 g/dL (32-36); MEAN CORPUSCULAR VOLUME 69 fL (80-99); MEAN PLATELET VOLUME 10.8 fL (9.0-12.2); MONOCYTES # (AUTO) 0.7 10^3/uL (0.0-1.0); MONOCYTES % (AUTO) 6 % (0-12); NEUTROPHILS # (AUTO) 6.3 10^3/uL (1.8-7.8); NEUTROPHILS % (AUTO) 53 % (42-75); PLATELET COUNT 539 10^3/uL (130-400); WHITE BLOOD COUNT 11.8 10^3/uL (4.3-11.0)
[2020-12-25 13:55] LABS: ALANINE AMINOTRANSFERASE 16 U/L (0-55); ALBUMIN 3.9 GM/DL (3.2-4.5); ALKALINE PHOSPHATASE 97 U/L (40-136); BILIRUBIN,TOTAL 0.2 MG/DL (0.1-1.0); BUN/CREATININE RATIO 15; CALCIUM 9.4 MG/DL (8.5-10.1); CARBON DIOXIDE 21 MMOL/L (21-32); CHLORIDE 109 MMOL/L (98-107); CREATININE SERUM 0.93 MG/DL (0.60-1.30); GFR ESTIMATED > 60; GLUCOSE 119 MG/DL (70-105); POTASSIUM 4.3 MMOL/L (3.6-5.0); SODIUM 139 MMOL/L (135-145); TOTAL PROTEIN 7.8 GM/DL (6.4-8.2)
[2021-01-15 11:00] LABS: BASOPHILS # (AUTO) 0.1 10^3/uL (0.0-0.1); BASOPHILS % (AUTO) 1 % (0-10); EOSINOPHILS # (AUTO) 0.2 10^3/uL (0.0-0.3); EOSINOPHILS % (AUTO) 2 % (0-10); HEMATOCRIT 33 % (35-52); HEMOGLOBIN 9.2 g/dL (11.5-16.0); LYMPHOCYTES # (AUTO) 3.1 10^3/uL (1.0-4.0); LYMPHOCYTES % (AUTO) 34 % (12-44); MEAN CORPUSCULAR HEMOGLOBIN 21 pg (25-34); MEAN CORPUSCULAR HGB CONC 28 g/dL (32-36); MEAN CORPUSCULAR VOLUME 73 fL (80-99); MEAN PLATELET VOLUME 10.9 fL (9.0-12.2); MONOCYTES # (AUTO) 0.6 10^3/uL (0.0-1.0); MONOCYTES % (AUTO) 7 % (0-12); NEUTROPHILS # (AUTO) 5.3 10^3/uL (1.8-7.8); NEUTROPHILS % (AUTO) 57 % (42-75); PLATELET COUNT 310 10^3/uL (130-400); WHITE BLOOD COUNT 9.3 10^3/uL (4.3-11.0)
[2021-01-15 11:09] LABS: CREATININE SERUM 1.42 MG/DL (0.60-1.30); POTASSIUM 4.1 MMOL/L (3.6-5.0)
[2021-01-21 15:01] LABS: BASOPHILS # (AUTO) 0.1 10^3/uL (0.0-0.1); BASOPHILS % (AUTO) 1 % (0-10); EOSINOPHILS # (AUTO) 0.1 10^3/uL (0.0-0.3); EOSINOPHILS % (AUTO) 1 % (0-10); HEMATOCRIT 34 % (35-52); HEMOGLOBIN 9.7 g/dL (11.5-16.0); LYMPHOCYTES # (AUTO) 2.4 10^3/uL (1.0-4.0); LYMPHOCYTES % (AUTO) 27 % (12-44); MEAN CORPUSCULAR HEMOGLOBIN 21 pg (25-34); MEAN CORPUSCULAR HGB CONC 29 g/dL (32-36); MEAN CORPUSCULAR VOLUME 72 fL (80-99); MEAN PLATELET VOLUME 10.4 fL (9.0-12.2); MONOCYTES # (AUTO) 0.6 10^3/uL (0.0-1.0); MONOCYTES % (AUTO) 7 % (0-12); NEUTROPHILS # (AUTO) 5.8 10^3/uL (1.8-7.8); NEUTROPHILS % (AUTO) 64 % (42-75); PLATELET COUNT 462 10^3/uL (130-400)
[2021-01-21 15:20] LABS: BUN/CREATININE RATIO 14; CALCIUM 9.3 MG/DL (8.5-10.1); CARBON DIOXIDE 19 MMOL/L (21-32); CHLORIDE 113 MMOL/L (98-107); CREATININE SERUM 0.95 MG/DL (0.60-1.30); GFR ESTIMATED > 60; GLUCOSE 143 MG/DL (70-105); POTASSIUM 3.8 MMOL/L (3.6-5.0); SODIUM 140 MMOL/L (135-145)
[2021-01-27 14:49] LABS: BASOPHILS # (AUTO) 0.1 10^3/uL (0.0-0.1); BASOPHILS % (AUTO) 1 % (0-10); EOSINOPHILS # (AUTO) 0.2 10^3/uL (0.0-0.3); EOSINOPHILS % (AUTO) 2 % (0-10); HEMATOCRIT 37 % (35-52); HEMOGLOBIN 10.5 g/dL (11.5-16.0); LYMPHOCYTES # (AUTO) 2.8 10^3/uL (1.0-4.0); LYMPHOCYTES % (AUTO) 26 % (12-44); MEAN CORPUSCULAR HEMOGLOBIN 21 pg (25-34); MEAN CORPUSCULAR HGB CONC 29 g/dL (32-36); MEAN CORPUSCULAR VOLUME 74 fL (80-99); MEAN PLATELET VOLUME 10.4 fL (9.0-12.2); MONOCYTES # (AUTO) 0.8 10^3/uL (0.0-1.0); MONOCYTES % (AUTO) 7 % (0-12); NEUTROPHILS # (AUTO) 7.1 10^3/uL (1.8-7.8); NEUTROPHILS % (AUTO) 64 % (42-75); PLATELET COUNT 382 10^3/uL (130-400)
[2021-01-27 15:05] LABS: ALANINE AMINOTRANSFERASE 17 U/L (0-55); ALKALINE PHOSPHATASE 87 U/L (40-136); BILIRUBIN,TOTAL 0.2 MG/DL (0.1-1.0); BUN/CREATININE RATIO 12; CALCIUM 9.5 MG/DL (8.5-10.1); CARBON DIOXIDE 18 MMOL/L (21-32); CHLORIDE 111 MMOL/L (98-107); CREATININE SERUM 0.97 MG/DL (0.60-1.30); GFR ESTIMATED > 60; GLUCOSE 125 MG/DL (70-105); POTASSIUM 3.8 MMOL/L (3.6-5.0); SODIUM 140 MMOL/L (135-145)
[2021-02-17 15:07] LABS: BASOPHILS % (AUTO) 0 % (0-10); EOSINOPHILS # (AUTO) 0.2 10^3/uL (0.0-0.3); EOSINOPHILS % (AUTO) 3 % (0-10); HEMATOCRIT 33 % (35-52); HEMOGLOBIN 9.9 g/dL (11.5-16.0); LYMPHOCYTES # (AUTO) 1.5 X 10^3 (1.0-4.0); LYMPHOCYTES % (AUTO) 21 % (12-44); MEAN CORPUSCULAR HEMOGLOBIN 21 pg (25-34); MEAN CORPUSCULAR HGB CONC 30 g/dL (32-36); MEAN CORPUSCULAR VOLUME 70 fL (80-99); MEAN PLATELET VOLUME 10.2 fL (9.0-12.2); MONOCYTES # (AUTO) 0.5 X 10^3 (0.0-1.0); MONOCYTES % (AUTO) 7 % (0-12); NEUTROPHILS % (AUTO) 69 % (42-75); PLATELET COUNT 276 10^3/uL (130-400); WHITE BLOOD COUNT 7.2 10^3/uL (4.3-11.0)
[2021-02-17 15:23] LABS: ALBUMIN 3.6 GM/DL (3.2-4.5); BILIRUBIN,TOTAL 0.2 MG/DL (0.1-1.0); CALCIUM 8.9 MG/DL (8.5-10.1); CREATININE SERUM 0.99 MG/DL (0.60-1.30); POTASSIUM 4.1 MMOL/L (3.6-5.0); TOTAL PROTEIN 6.9 GM/DL (6.4-8.2)
[~2021-02-25 13:40] MED LIST changes: -CLINDAMYCIN 600 MG/50 ML IVPB 50 ML IV ONE; +FERRIC CARBOXYMALTOSE (CANCER) 750 MG in NS (IVPB) CANCER CENTER 250 ML IV SCH; -LACTATED RINGERS 1,000 ML IV PRN
[2021-03-04] MEDS ORDERED: NALO4SPR NS (19:02)
[2021-03-04] MEDS ORDERED: OXYC1TAB87 PO (19:02)
[2021-03-05] MEDS ORDERED: NALO4SPR NS (12:47)
[2021-03-05] MEDS ORDERED: OXYC1TAB87 PO (12:47)
[2021-03-08] MEDS ORDERED: FOLI1TAB33 PO (03:15)
[2021-03-08] MEDS ORDERED: FLUO40CA PO (03:20)
[2021-03-10] MEDS ORDERED: NALO4SPR NS (14:02)
[2021-03-10] MEDS ORDERED: OXYC1TAB11 PO (14:02)
[2021-03-10] MEDS ORDERED: LEVO750T39 PO (14:02)
[2021-03-14] MEDS ORDERED: POTA20TA8 PO (11:07)
[2021-03-14] MEDS ORDERED: MAGN400T8 PO (11:07)
[2021-03-14] MEDS ORDERED: OXYC1TAB11 PO (11:07)
[2021-03-14] MEDS ORDERED: CEFD300C3 PO (11:11)
== END 2021-03-24 | disposition home or self-care (01) ==
LOC: ONC 13:40
PROVIDERS: ATTEND Internal Medicine Hematology & Oncology
DX: C71.9 Malignant neoplasm of brain, unspecified (principal); D50.9 Iron deficiency anemia, unspecified; I11.9 Hypertensive heart disease without heart failure; E11.9 Type 2 diabetes mellitus without complications; E78.00 Pure hypercholesterolemia, unspecified; Z98.890 Other specified postprocedural states
CPT/HCPCS: 77300; 77301; 77334; 77336; 77338; 77386; 77470; 80048; 80053; 82728; 83540; 83550; 85025; 96365; 96523; 99204; 99213; 99214

== ENCOUNTER 2021-03-03 11:10 | Emergency (ER) | payer MEDICARE, MEDICAID ==
[~2021-03-03] VITALS: Ht 165 cm; Wt 127.0 kg
[~2021-03-03 11:10] MED LIST changes: -FERRIC CARBOXYMALTOSE (CANCER) 750 MG in NS (IVPB) CANCER CENTER 250 ML IV SCH
[2021-03-03] MEDS ORDERED: ONDANSETRON 4 MG/2 ML (SDV) Z0FRAN IVP ONE (12:00)
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
[2021-03-03 12:14] LABS: ALBUMIN 3.7 GM/DL (3.2-4.5)
[2021-03-03 12:15] LABS: BASOPHILS # (AUTO) 0.1 10^3/uL (0.0-0.1); BASOPHILS % (AUTO) 1 % (0-10); CHLORIDE 109 MMOL/L (98-107); EOSINOPHILS # (AUTO) 0.2 10^3/uL (0.0-0.3); EOSINOPHILS % (AUTO) 2 % (0-10); HEMATOCRIT 37 % (35-52); HEMOGLOBIN 10.7 g/dL (11.5-16.0); LYMPHOCYTES # (AUTO) 0.8 10^3/uL (1.0-4.0); LYMPHOCYTES % (AUTO) 8 % (12-44); MEAN CORPUSCULAR HEMOGLOBIN 21 pg (25-34); MEAN CORPUSCULAR HGB CONC 29 g/dL (32-36); MEAN CORPUSCULAR VOLUME 72 fL (80-99); MEAN PLATELET VOLUME 10.4 fL (9.0-12.2); MONOCYTES # (AUTO) 0.9 10^3/uL (0.0-1.0); MONOCYTES % (AUTO) 8 % (0-12); NEUTROPHILS # (AUTO) 8.7 10^3/uL (1.8-7.8); NEUTROPHILS % (AUTO) 81 % (42-75); PLATELET COUNT 294 10^3/uL (130-400); POTASSIUM 3.9 MMOL/L (3.6-5.0); SODIUM 138 MMOL/L (135-145); WHITE BLOOD COUNT 10.7 10^3/uL (4.3-11.0)
[2021-03-03 12:16] LABS: CALCIUM 9.3 MG/DL (8.5-10.1)
[2021-03-03 12:17] LABS: GLUCOSE 125 MG/DL (70-105); TOTAL PROTEIN 7.2 GM/DL (6.4-8.2)
[2021-03-03 12:18] LABS: CARBON DIOXIDE 18 MMOL/L (21-32)
[2021-03-03 12:19] LABS: BILIRUBIN,TOTAL 0.3 MG/DL (0.1-1.0)
[2021-03-03 12:20] LABS: ALKALINE PHOSPHATASE 110 U/L (40-136)
[2021-03-03 12:21] LABS: CREATININE SERUM 0.93 MG/DL (0.60-1.30); GFR ESTIMATED 64
[2021-03-03 12:22] LABS: BUN/CREATININE RATIO 12
[2021-03-03 12:24] LABS: ALANINE AMINOTRANSFERASE 21 U/L (0-55)
[2021-03-03] MEDS ORDERED: NS IV 1000 ML 1,000 ML IV SCH (12:45)
[2021-03-03 13:22] LABS: BAND NEUTROPHILS 2 %; NEUTROPHILS % (MANUAL) 80 %
[2021-03-03 13:23] LABS: ANISOCYTOSIS MODERATE; BASOPHILS % (MANUAL) 0 %; EOSINOPHILS % (MANUAL) 2 %; HYPOCHROMASIA SLIGHT; LYMPHOCYTES % (MANUAL) 10 %; MONOCYTES % (MANUAL) 6 %
--- NOTE | 2021-03-03 14:37 | Diagnostic Imaging Report ---
PROCEDURE: US left lower extremity venous. TECHNIQUE: Multiple real-time grayscale images were obtained over the left lower extremity in various projections. Additional duplex Doppler and color Doppler images were also obtained. INDICATION: Left leg swelling. FINDINGS: There is no evidence of left lower extremity DVT. Left lower extremity deep venous system shows normal compressibility with normal response to augmentation and Valsalva. No fluid collection or mass is detected. IMPRESSION: No evidence of left lower extremity DVT. Dictated by: Dictated on workstation # [id number]
[2021-03-03 15:20] VITALS: BP 152/76
--- NOTE | 2021-03-04 07:15 | Diagnostic Imaging Report ---
EXAMINATION: Chest 1 view HISTORY: Chest pain. COMPARISON: 01/22/2021. FINDINGS: A right port is visualized with the tip overlying the mid SVC. The lung volumes are normal. No focal consolidation is seen. No large pleural effusion or pneumothorax is seen. The cardiomediastinal silhouette is normal in size and contour. Loop recorder is noted overlying the left chest. No acute osseous abnormality is seen. IMPRESSION: 1. No acute pleuroparenchymal process. Dictated by: Dictated on workstation # [id number]
[2021-03-04] MEDS ORDERED: NALO4SPR NS (19:02)
[2021-03-04] MEDS ORDERED: OXYC1TAB87 PO (19:02)
== END 2021-03-03 15:20 | disposition home or self-care (01) ==
LOC: EDUNIT# 11:10 → ER 11:12
DX: R07.9 Chest pain, unspecified (principal); M79.605 Pain in left leg; K62.5 Hemorrhage of anus and rectum; I10 Essential (primary) hypertension; E11.9 Type 2 diabetes mellitus without complications; C71.9 Malignant neoplasm of brain, unspecified; I48.0 Paroxysmal atrial fibrillation; J44.9 Chronic obstructive pulmonary disease, unspecified; E78.00 Pure hypercholesterolemia, unspecified; K21.9 Gastro-esophageal reflux disease without esophagitis; G43.909 Migraine, unspecified, not intractable, without status migrainosus; G89.29 Other chronic pain; M54.9 Dorsalgia, unspecified; F41.9 Anxiety disorder, unspecified; F32.9 Major depressive disorder, single episode, unspecified; F17.210 Nicotine dependence, cigarettes, uncomplicated; E66.9 Obesity, unspecified; Z95.9 Presence of cardiac and vascular implant and graft, unspecified; Z68.42 Body mass index [BMI] 45.0-49.9, adult; Z79.01 Long term (current) use of anticoagulants; Z79.891 Long term (current) use of opiate analgesic; Z79.84 Long term (current) use of oral hypoglycemic drugs; Z79.51 Long term (current) use of inhaled steroids; Z79.899 Other long term (current) drug therapy
CPT/HCPCS: 36415; 71045; 80053; 82274; 84484; 85007; 85027; 87040; 87077; 87186; 93005

== ENCOUNTER 2021-03-04 16:03 | Emergency (ER) | payer MEDICARE, MEDICAID ==
[~2021-03-04] VITALS: Ht 165.1 cm; Wt 104.0 kg
[2021-03-04] MEDS ORDERED: ONDANSETRON 4 MG/2 ML (SDV) Z0FRAN IVP ONE (16:30)
[2021-03-04] MEDS ORDERED: fentaNYL INJ 100 MCG/2 ML AMP IVP ONE (16:30)
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
[2021-03-04] MEDS ORDERED: HYDROmorphone 2 MG/ML VIAL (DILAUDID) IV ONE (17:15)
[2021-03-04 18:25] LABS: BILIRUBIN,URINE NEGATIVE (NEGATIVE); CLARITY,URINE CLEAR; COLOR,URINE YELLOW; GLUCOSE, URINE (UA) NEGATIVE (NEGATIVE); KETONES,URINE TRACE (NEGATIVE); LEUKOCYTE ESTERASE ,URINE NEGATIVE (NEGATIVE); NITRITE,URINE NEGATIVE (NEGATIVE); PH,URINE 5.5 (5-9); PROTEIN,URINE TRACE (NEGATIVE)
--- NOTE | 2021-03-04 18:34 | Diagnostic Imaging Report ---
Procedure: CT lumbar spine without contrast. Technique: Multiple contiguous axial images were obtained through the lumbar spine without the use of intravenous contrast. Sagittal and coronal reformations were then performed. Auto Exposure Controls were utilized during the CT exam to meet ALARA standards for radiation dose reduction. Date: March 04, 2021. Indication: 50-year-old female, low back pain. Comparison: CT abdomen and pelvis January 14, 2021. Findings: There is a slight lumbar levocurvature. The anterior to posterior alignment of the lumbar spine is unremarkable. There is no identified acute fracture or compression deformity of the lumbar spine. There is severe disc height loss at L3-L4, L4-L5, and L5-S1. CT is limited for assessment of disc pathology as well as additional nonbony causes of pathology in the spinal canal. The facet joints are grossly unremarkable. The sacroiliac joints are unremarkable in appearance. There are nonobstructing left renal stones versus parenchymal calcifications of the left kidney. There is mild atrophy of the left kidney. There is no hydronephrosis. IMPRESSION: 1. No identified acute abnormality of the lumbar spine. 2. Severe disc degenerative changes at L3-L4, L4-L5, and L5-S1. Dictated by: Dictated on workstation # [id number]
[2021-03-04 18:41] LABS: AMORPHOUS SEDIMENT,UR RARE AMOR URATES /LPF; BACTERIA,URINE TRACE /HPF; HYALINE CASTS, URINE 0-2 /LPF; WBC,URINE 0-2 /HPF
[2021-03-04] MEDS ORDERED: NALO4SPR NS (19:02)
[2021-03-04] MEDS ORDERED: OXYC1TAB87 PO (19:02)
[2021-03-04] MEDS ORDERED: oxyCODONE/APAP 5/325MG (PERCOCET 5) TABLET PO ONE (19:15)
[2021-03-04 19:51] VITALS: BP 140/79
[2021-03-05] MEDS ORDERED: NALO4SPR NS (12:47)
[2021-03-05] MEDS ORDERED: OXYC1TAB87 PO (12:47)
== END 2021-03-04 19:29 | disposition home or self-care (01) ==
LOC: EDUNIT# 16:03 → ER 16:06
DX: M54.42 Lumbago with sciatica, left side (principal); I10 Essential (primary) hypertension; E11.9 Type 2 diabetes mellitus without complications; J44.9 Chronic obstructive pulmonary disease, unspecified; E78.00 Pure hypercholesterolemia, unspecified; I48.0 Paroxysmal atrial fibrillation; G43.909 Migraine, unspecified, not intractable, without status migrainosus; K21.9 Gastro-esophageal reflux disease without esophagitis; G89.29 Other chronic pain; F41.9 Anxiety disorder, unspecified; F32.9 Major depressive disorder, single episode, unspecified; E66.9 Obesity, unspecified; F17.210 Nicotine dependence, cigarettes, uncomplicated; Z68.38 Body mass index [BMI] 38.0-38.9, adult; Z79.01 Long term (current) use of anticoagulants; Z79.891 Long term (current) use of opiate analgesic; Z79.51 Long term (current) use of inhaled steroids; Z79.84 Long term (current) use of oral hypoglycemic drugs; Z79.899 Other long term (current) drug therapy
CPT/HCPCS: 72131; 81000; 84703

== ENCOUNTER 2021-03-07 15:19 | Inpatient (IN) | payer MEDICARE, MEDICAID ==
[2021-03-07] VITALS (8 sets, daily range): BP systolic 112–140; BP diastolic 65–86
[~2021-03-07] VITALS: Ht 165.1 cm; Wt 129.4 kg
[~2021-03-07 15:19] MED LIST changes: +NALO4SPR NS; +OXYC1TAB87 PO
[2021-03-07] MEDS ORDERED: LORazepam INJ 2 MG/ML (ATIVAN) VIAL IVP ONE ×2 (15:45→17:00)
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
[2021-03-07] MEDS ORDERED: ACETAMINOPHEN 500 MG TAB (TYLENOL) PO ONE (16:30)
--- NOTE | 2021-03-07 16:31 | Diagnostic Imaging Report ---
INDICATION: Fever, nausea. COMPARISON: 03/03/2021. FINDINGS: Single view of the chest demonstrates clear lungs bilaterally. The heart is prominent but stable. There is a loop recorder on the left. Osseous structures are unremarkable. There is a right Port-A-Cath in stable position. IMPRESSION: No acute cardiopulmonary findings. Dictated by: Dictated on workstation # [id number]
[2021-03-07 16:40] LABS: BASOPHILS % (AUTO) 0 % (0-10); EOSINOPHILS % (AUTO) 0 % (0-10); HEMATOCRIT 31 % (35-52); HEMOGLOBIN 9.4 g/dL (11.5-16.0); LYMPHOCYTES # (AUTO) 0.4 10^3/uL (1.0-4.0); LYMPHOCYTES % (AUTO) 4 % (12-44); MEAN CORPUSCULAR HEMOGLOBIN 21 pg (25-34); MEAN CORPUSCULAR HGB CONC 30 g/dL (32-36); MEAN CORPUSCULAR VOLUME 70 fL (80-99); MEAN PLATELET VOLUME 10.7 fL (9.0-12.2); MONOCYTES # (AUTO) 0.4 10^3/uL (0.0-1.0); MONOCYTES % (AUTO) 4 % (0-12); NEUTROPHILS # (AUTO) 9.7 10^3/uL (1.8-7.8); NEUTROPHILS % (AUTO) 91 % (42-75); PLATELET COUNT 282 10^3/uL (130-400); WHITE BLOOD COUNT 10.7 10^3/uL (4.3-11.0)
[2021-03-07 16:51] LABS: INR 1.6 (0.8-1.4); PROTHROMBIN TIME PATIENT 19.4 SEC (12.2-14.7)
[2021-03-07 16:53] LABS: BURR CELLS MODERATE; HYPOCHROMASIA MARKED; LYMPHOCYTES % (MANUAL) 1 %; MONOCYTES % (MANUAL) 2 %; NEUTROPHILS % (MANUAL) 97 %
[2021-03-07 17:30] LABS: CALCIUM 9.6 MG/DL (8.5-10.1); CREATININE SERUM 0.89 MG/DL (0.60-1.30); POTASSIUM 3.1 MMOL/L (3.6-5.0)
[2021-03-07 17:31] LABS: ALBUMIN 3.1 GM/DL (3.2-4.5); BILIRUBIN,TOTAL 0.5 MG/DL (0.1-1.0); TOTAL PROTEIN 6.8 GM/DL (6.4-8.2)
[2021-03-07] MEDS ORDERED: MEROPENEM 1,000 MG in WATER (STERILE) FOR INJECTION 20 ML IV ONE (18:15)
[2021-03-07] MEDS ORDERED: LACTATED RINGERS 1,000 ML IV ONE ×2 (18:15)
--- NOTE | 2021-03-07 18:19 | Diagnostic Imaging Report ---
PROCEDURE: CT head without contrast. TECHNIQUE: Multiple contiguous axial images were obtained through the brain without the use of intravenous contrast. Auto Exposure Controls were utilized during the CT exam to meet ALARA standards for radiation dose reduction. INDICATION: Brain tumor, fever, altered mental status. COMPARISON: 01/05/2021. FINDINGS: Postsurgical changes of a left occipital craniectomy are again identified. Focal wedge-shaped hypodensity within the left occipital lobe is present, appearing slightly improved from the prior examination. Previously noted focal fluid collection underlying the craniotomy flap has improved since the prior examination. No intracranial hemorrhage. No midline shift, herniation, obstructive hydrocephalus or additional suspicious extra-axial fluid collection. Mild ex vacuo dilatation of the left occipital horn. Minimal hypodensity within the inferior right basal ganglia is again noted and unchanged the prior examination. No definite CT evidence of a new acute ischemic infarction. The orbits are unremarkable. Mild mucosal thickening within the bilateral maxillary sinuses. Otherwise, the paranasal sinuses are clear. Besides postsurgical changes, the calvarium appears intact. IMPRESSION: No definite new acute intracranial abnormality. Postsurgical changes associated with the left occipital region with improving though persisting hypodensities within the region. Findings are favored to relate to postoperative edema and encephalomalacia. Residual malignancy at this location cannot be excluded. Recommend continued follow-up. Improved and nearly resolved thin fluid collection underlying the left craniotomy flap. Should there remain clinical concern, further evaluation with MRI of the brain, preferably with and without contrast would be recommended. Dictated by: Dictated on workstation # [id number]
[2021-03-07 19:56] LABS: BILIRUBIN,URINE NEGATIVE (NEGATIVE); CLARITY,URINE SL CLOUDY; COLOR,URINE YELLOW; GLUCOSE, URINE (UA) NEGATIVE (NEGATIVE); KETONES,URINE NEGATIVE (NEGATIVE); LEUKOCYTE ESTERASE ,URINE NEGATIVE (NEGATIVE); NITRITE,URINE NEGATIVE (NEGATIVE); PH,URINE 5.5 (5-9); PROTEIN,URINE 2+ (NEGATIVE)
[2021-03-07 20:04] LABS: BACTERIA,URINE TRACE /HPF; RBC,URINE 0-2 /HPF
[2021-03-07] MEDS: VANCOMYCIN INJECTION 1,000 MG in NS (IVPB) 250 ML IV SCH ×2 (20:20→23:28)
[2021-03-07] MEDS ORDERED: ONDANSETRON 4 MG/2 ML (SDV) Z0FRAN ONE (20:22)
[2021-03-07] MEDS ORDERED: fentaNYL INJ 100 MCG/2 ML AMP IVP ONE (20:30)
[2021-03-07] MEDS ORDERED: KCL 10 MEQ TAB (MICRO K) PO ONE (20:30)
[2021-03-07] MEDS ORDERED: ONDANSETRON 4 MG/2 ML (SDV) Z0FRAN IVP ONE (20:30)
[2021-03-07] MEDS ORDERED: PROMETHAZINE INJ 25 MG/ML (PHENERGAN) AMP IV PRN (22:30)
[2021-03-07] MEDS ORDERED: LACTATED RINGERS 1,000 ML IV SCH (23:00)
[2021-03-07] MEDS: LACTATED RINGERS 1,000 ML IV SCH (23:28)
[2021-03-07] MEDS ORDERED: VANCOMYCIN 1 GM/NS 250 ML IVPB IV ONE ×2 (23:30)
[2021-03-07] MEDS: fentaNYL INJ 100 MCG/2 ML AMP IV PRN (23:40)
[2021-03-08] VITALS (8 sets, daily range): BP systolic 107–140; BP diastolic 53–79
[2021-03-08] MEDS: fentaNYL INJ 100 MCG/2 ML AMP IV PRN ×5 (01:41→14:45)
[2021-03-08] MEDS ORDERED: LORazepam INJ 2 MG/ML (ATIVAN) VIAL IVP PRN (02:45)
[2021-03-08] MEDS: ACETAMINOPHEN 500 MG TAB (TYLENOL) PO PRN (03:13)
[2021-03-08] MEDS ORDERED: FOLI1TAB33 PO (03:15)
[2021-03-08] MEDS ORDERED: FLUO40CA PO (03:20)
[2021-03-08] MEDS: MEROPENEM 1,000 MG/SWFI 20 ML IV PUSH IV SCH ×6 (04:13→20:51)
[2021-03-08 06:07] LABS: BASOPHILS % (AUTO) 0 % (0-10); EOSINOPHILS % (AUTO) 0 % (0-10); HEMATOCRIT 26 % (35-52); HEMOGLOBIN 7.9 g/dL (11.5-16.0); LYMPHOCYTES # (AUTO) 0.5 10^3/uL (1.0-4.0); LYMPHOCYTES % (AUTO) 7 % (12-44); MEAN CORPUSCULAR HEMOGLOBIN 21 pg (25-34); MEAN CORPUSCULAR HGB CONC 30 g/dL (32-36); MEAN CORPUSCULAR VOLUME 71 fL (80-99); MONOCYTES # (AUTO) 0.7 10^3/uL (0.0-1.0); MONOCYTES % (AUTO) 9 % (0-12); NEUTROPHILS # (AUTO) 5.6 10^3/uL (1.8-7.8); NEUTROPHILS % (AUTO) 77 % (42-75); PLATELET COUNT 257 10^3/uL (130-400); WHITE BLOOD COUNT 7.3 10^3/uL (4.3-11.0)
[2021-03-08] MEDS: ONDANSETRON 4 MG/2 ML (SDV) Z0FRAN IV PRN ×3 (06:14→21:36)
[2021-03-08 06:20] LABS: CALCIUM 8.6 MG/DL (8.5-10.1)
[2021-03-08 06:24] LABS: CREATININE SERUM 0.77 MG/DL (0.60-1.30)
[2021-03-08] MEDS: LACTATED RINGERS 1,000 ML IV SCH ×3 (06:40→20:27)
--- NOTE | 2021-03-08 09:03 | Consultation - Surgery ---
OUSMANE THORPE 03/08/21 0903: History of Present Illness History of Present Illness Patient Consulted On(fernando/time) 03/08/21 08:55 Date Seen by Provider: Mar 08, 2021 Time Seen by Provider: 08:30 History of Present Illness Patient is seen as a consult from Dr. Mg for port removal due to infection. Patient had port placed on 02/14/[address] Mayo .Port was placed for chemo treatment for Glioblastoma. Patient had a craniotomy in november of 2020 Patient supposedly finished chemotherapy two weeks ago. Patient was seen by Dr. Mayo one week ago and prescribed an antibiotic which was not filled at pharmacy. Port is located on right shoulder. It is tender to palpation. Patient states it hurts to move it as well. Patient states she wants the port removed as soon as possibl e. Incisions do not look red/inflammed to me. Port site was warm to touch. Patient had an episode of nausea while I was in the room and retched, but no vomiting. Allergies and Home Medications Allergies Coded Allergies: estradiol (Unverified Allergy, Severe, RASH/TIA, 11/14/19) Penicillins (Unverified Allergy, Mild, Hives, 06/28/19) povidone-iodine (Unverified Allergy, Mild, Hives, 06/28/19) soap (Unverified Adverse Reaction, Unknown, 08/08/20) Home Medications Albuterol Sulfate 1 Puff Puff, 2 PUFF INH QID PRN for SHORTNESS OF BREATH, (Reported) Last Action: Reviewed Apixaban 5 Mg Tablet, 5 MG PO BID, (Reported) Last Action: Reviewed Atorvastatin Calcium 20 Mg Tablet, 20 MG PO HS, (Reported) Last Action: Reviewed Calcium Carbonate 400 Mg Tab.chew, 400-800 MG PO PRN PRN for INDIGESTION, (Reported) Last Action: Reviewed Erenumab-Aooe 140 Mg/1 Ml Auto.injct, 140 MG INJ MONTHLY, (Reported) Last Action: Reviewed Famotidine 20 Mg Tablet, 20 MG PO BID, (Reported) Last Action: Reviewed Fluoxetine HCl 40 Mg Capsule, 40 MG PO DAILY, (Reported) Last Action: Reviewed Fluticasone/Vilanterol 1 Each Blst.w.dev, 1 PUFF INH DAILY, (Reported) Last Action: Reviewed Folic Acid 1 Mg Tablet, 1 MG PO DAILY, (Reported) Last Action: Reviewed Galcanezumab-Gnlm 120 Mg/1 Ml Pen.injctr, 120 MG INJ MONTHLY, (Reported) Last Action: Reviewed Hydroxyzine HCl 25 Mg Tablet, 25 MG PO Q8H PRN for ITCHING, (Reported) Last Action: Reviewed Metformin HCl 1,000 Mg Tablet, 1,000 MG PO BID, (Reported) Last Action: Reviewed Naloxone HCl 4 Mg Beaver, 4 MG NS Q20M PRN for overdose . Prescribed by: EMPERATRIZ LUNA on 03/05/211246 Last Action: Reviewed Ondansetron 8 Mg Tab.rapdis, 8 MG PO Q8H PRN for NAUSEA/VOMITING, (Reported) Last Action: Reviewed Oxycodone HCl/Acetaminophen 1 Each Tablet, 1-2 TAB PO Q4H . Prescribed by: EMPERATRIZ LUNA on 03/05/211247 Last Action: Reviewed Pantoprazole Sodium 40 Mg Tablet.dr, 40 MG PO DAILY, (Reported) Last Action: Reviewed Pregabalin 75 Mg Capsule, 150 MG PO BID, (Reported) TAKES 2 (75MG) CAPS Last Action: Reviewed Propranolol HCl 120 Mg Cap.sa.24h, 120 MG PO DAILY, (Reported) Last Action: Reviewed Temozolomide 140 Mg Capsule, 140 MG PO UD, (Reported) DAYS 1-42 INSTRUCTED Last Action: Reviewed Tizanidine HCl 2 Mg Tablet, 6 MG PO HS, (Reported) TAKES 3 (2MG) TABS Last Action: Reviewed Topiramate 50 Mg Tablet, 150 MG PO BID, (Reported) TAKES 3 (50MG) TABLETS Last Action: Reviewed Ubrogepant 50 Mg Tablet, 50 MG PO UD PRN for MIGRAINE, (Reported) Last Action: Reviewed Past Rodnsli-Epoqbl-Syqdne Hx Patient Social History Drug of Choice: Denies Smoking Status: Current Everyday Smoker Former Smoker, Quit: Aug 05, 2020 Type Used: Cigarettes 2nd Hand Smoke Exposure: Yes Recent Hopitalizations: Yes (BRAIN SURGERY NOVEMBER 2020) Alcohol Use?: No Have you traveled recently?: No Immunizations Up To Date PED Vaccines UTD: Yes Date of Pneumonia Vaccine: Apr 18, 2018 Date of Influenza Vaccine: Apr 18, 2020 Seasonal Allergies Seasonal Allergies: No Surgeries History of Surgeries: Yes (CARDIAC CATH 2018-NO INTERVENTION;LOOP RECORDER; craniotomy w tumor resect) Surgeries: Brain Shunt, Cardiac, Gallbladder, 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, Oophorectomy, Orthopedic, 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 Respiratory History of Respiratory Disorde: Yes Respiratory Disorders: Sleep Apnea, COPD Cardiovascular History of Cardiac Disorders: Yes (HEART CATH-NO STENTS, paroxysmal a-fib, loop recorder) Cardiac Disorders: Atrial Fibrillation, High Cholesterol, Hypertension Neurological History of Neurological Disord: Yes (botox for migraines 11/20/19 CRAINOTMY 12/06) Neurological Disorders: Brain Tumor (Glioblastoma), Concussion, Headaches /Migraines, TIA, Traumatic Brain Injury Reproductive System Hx Reproductive Disorders: No (1 OVARY REMOVED, TUBES TIED ) Sexually Transmitted Disease: No HIV/AIDS: No Female Reproductive Disorders: 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, 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 Genitourinary History of Genitourinary Disor: Yes Genitourinary Disorders: Kidney Stones Gastrointestinal History of Gastrointestinal Di: Yes Gastrointestinal Disorders: Gastroesophageal Reflux, Chronic Diarrhea, Esophagitis, Hiatal Hernia, Gall Bladder Disease Musculoskeletal History of Musculoskeletal Dis: Yes (BILAT KNEE SCOPES; R HUMERUS FX/[place]NA; CHRONIC GEN PAIN ) Musculoskeletal Disorders: Arthritis, Chronic Back Pain Endocrine History of Endocrine Disorders: Yes (NON-COMPLIANT;MORBID OBESITY) Endocrine Disorders: Diabetes, Non-Insulin dep HEENT History of HEENT Disorders: Yes (GLASSES, MISSING SOME TEETH) Loss of Vision: Denies Cancer History of Cancer: Yes (GLIOBLASTOMA STAGE 4) Cancer: Brain (glioblastoma) Psychosocial History of Psychiatric Problem: Yes (EXTENSIVE PSYCH ISSUES) Behavioral Health Disorders: Anxiety, Depression Integumentary History of Skin or Integumenta: No Blood Transfusions History of Blood Disorders: Yes (ANEMIA) Adverse Reaction to a Blood Tr: No (N/A) Family Medical History Significant Family History: Heart Disease (CT), Seizures, Stroke Family Medial History: Myocardial infarction GRANDMOTHER AUNT GRANDFATHER Seizure disorder Stroke 19 MOTHER GRANDMOTHER AUNT MATERNAL GRANDFATHER Review of Systems-General Constitutional: chills, fever Respiratory: cough, short of breath Cardiovascular: No chest pain, No palpitations Gastrointestinal: LUQ (pain to palpation), LLQ (pain to palpation), abdominal pain (LUQ and LLQ), nausea; No vomiting Musculoskeletal: other (Pain over right anterior deltoid/pectoralis at port placement site) Skin: dryness, other (swelling/puffiness in hands and feet) Physical Exam-General Problems Physical Exam Vital Signs Vital Signs - First Documented 03/07/21 15:25 Temp 38.2 Pulse 91 Resp 25 B/P (MAP) 111/77 (88) Pulse Ox 97 O2 Delivery Room Air Capillary Refill : Less Than 3 Seconds General Appearance: WD/WN, mild distress HEENT: PERRL/EOMI Neck: non-tender Respiratory: decreased breath sounds, other (tachypnea) Cardiovascular: normal peripheral pulses, regular rate, rhythm Gastrointestinal: normal bowel sounds, soft, tenderness (LUQ, LLQ) Extremities: pedal edema, swelling (hands) Neurologic/Psychiatric: alert, oriented x 3, depressed affect Skin: other (warm over port placement site), pallor Data Review Labs Laboratory Tests 03/07/21 16:25: White Blood Count 10.7, Red Blood Count 4.42, Hemoglobin 9.4L, Hematocrit 31L, Mean Corpuscular Volume 70L, Mean Corpuscular Hemoglobin 21L, Mean Corpuscular Hemoglobin Concent 30L, Red Cell Distribution Width 20.8H, Platelet Count 282, Mean Platelet Volume 10.7, Immature Granulocyte % (Auto) 1, Neutrophils (%) (Auto) 91H, Lymphocytes (%) (Auto) 4L, Monocytes (%) (Auto) 4, Eosinophils (%) (Auto) 0, Basophils (%) (Auto) 0, Neutrophils # (Auto) 9.7H, Lymphocytes # (Auto) 0.4L, Monocytes # (Auto) 0.4, Eosinophils # (Auto) 0.0, Basophils # (Auto) 0.0, Immature Granulocyte # (Auto) 0.1, Neutrophils % (Manual) 97, Lymphocytes % (Manual) 1, Monocytes % (Manual) 2, Hypochromasia MARKED, [place] Cells MODERATE, Prothrombin Time 19.4H, INR Comment 1.6H, Activated Partial Thromboplast Time 54H, Sodium Level 136, Potassium Level 3.1L, Chloride Level 109H, Carbon Dioxide Level 12L, Anion Gap 15H, Blood Urea Nitrogen 18, Creatinine 0.89, Estimat Glomerular Filtration Rate 68, BUN/Creatinine Ratio 20, Glucose Level 200H, Lactic Acid Level 3.26*H, Calcium Level 9.6, Corrected Calcium 10.3H, Total Bilirubin 0.5, Aspartate Amino Transf (AST/SGOT) 54H, Alanine Aminotransferase (ALT/SGPT) 55, Alkaline Phosphatase 163H, C-Reactive Protein High Sensitivity 43.24H, Total Protein 6.8, Albumin 3.1L, Procalcitonin 151.21H, Influenza Type A (RT-PCR) Not Detected, Influenza Type B (RT-PCR) Not Detected, SARS-CoV-2 RNA (RT-PCR) Not Detected 03/07/21 18:50: Lactic Acid Level 1.75 03/07/21 19:45: Urine Color YELLOW, Urine Clarity SL CLOUDY, Urine pH 5.5, Urine Specific [place] >=1.030, Urine Protein 2+H, Urine Glucose (UA) NEGATIVE, Urine Ketones NEGATIVE, Urine Nitrite NEGATIVE, Urine Bilirubin NEGATIVE, Urine Urobilinogen 0.2, Urine Leukocyte Esterase NEGATIVE, Urine RBC (Auto) NEGATIVE, Urine RBC 0- 2, Urine WBC 5-10H, Urine Squamous Epithelial Cells NONE, Urine Renal Epithelial Cells NONE, Urine Crystals NONE, Urine Bacteria TRACE, Urine Casts NONE, Urine Mucus SMALLH, Urine Culture Indicated CULTURE PENDING 03/08/21 05:20: White Blood Count 7.3, Red Blood Count 3.72L, Hemoglobin 7.9L, Hematocrit 26L, Mean Corpuscular Volume 71L, Mean Corpuscular Hemoglobin 21L, Mean Corpuscular Hemoglobin Concent 30L, Red Cell Distribution Width 20.6H, Platelet Count 257, Mean Platelet Volume 11.0, Immature Granulocyte % (Auto) 7, Neutrophils (%) (Auto) 77H, Lymphocytes (%) (Auto) 7L, Monocytes (%) (Auto) 9, Eosinophils (%) (Auto) 0, Basophils (%) (Auto) 0, Neutrophils # (Auto) 5.6, Lymphocytes # (Auto) 0.5L, Monocytes # (Auto) 0.7, Eosinophils # (Auto) 0.0, Basophils # (Auto) 0.0, Immature Granulocyte # (Auto) 0.5H, Sodium Level 136, Potassium Level 3.0L, Chloride Level 110H, Carbon Dioxide Level 12L, Anion Gap 14, Blood Urea Nitrogen 20H, Creatinine 0.77, Estimat Glomerular Filtration Rate 80, BUN/Creatinine Ratio 26, Glucose Level 108H, Calcium Level 8.6 Assessment/Plan Assessment/Plan Assessment/Plan Assessment: Sepsis Infected port placement Plan: NPO Continue fluid resuscitation Continue abx Continue medical management Continue monitoring labs Remove port - patient understands and wants procedure done. FRANCINE RUSHING DO 03/08/21 1449: History of Present Illness History of Present Illness History of Present Illness Patient is a 50-year-old female with glioblastoma. She had a port placed approximately 3 weeks ago. Patient reports having some purulent drainage from the right chest incision. She saw Dr. Mayo last week which he called in antibiotics which patient did not take. Patient is continued to not feel well since. She began having fever. Patient went to the emergency department last night for further evaluation. Patient is slight tenderness with her port site. If the area is touched it does cause some discomfort. She states nothing was seems to make it better. Patient with no other complaints at this time. Except for she has had some slight nausea and chills. She has no emesis. She denies any sweats shortness of breath or chest pain at this time she had previous blood cultures which one tested positive for staph aureus. Current blood cultures pending. Allergies and Home Medications Allergies Coded Allergies: estradiol (Unverified Allergy, Severe, RASH/TIA, 11/14/19) Penicillins (Unverified Allergy, Mild, Hives, 06/28/19) povidone-iodine (Unverified Allergy, Mild, Hives, 06/28/19) soap (Unverified Adverse Reaction, Unknown, 08/08/20) Home Medications Albuterol Sulfate 1 Puff Puff, 2 PUFF INH QID PRN for SHORTNESS OF BREATH, (Reported) Last Action: Reviewed Apixaban 5 Mg Tablet, 5 MG PO BID, (Reported) Last Action: Reviewed Atorvastatin Calcium 20 Mg Tablet, 20 MG PO HS, (Reported) Last Action: Reviewed Calcium Carbonate 400 Mg Tab.chew, 400-800 MG PO PRN PRN for INDIGESTION, (Reported) Last Action: Reviewed Erenumab-Aooe 140 Mg/1 Ml Auto.injct, 140 MG INJ MONTHLY, (Reported) Last Action: Reviewed Famotidine 20 Mg Tablet, 20 MG PO BID, (Reported) Last Action: Reviewed Fluoxetine HCl 40 Mg Capsule, 40 MG PO DAILY, (Reported) Last Action: Reviewed Fluticasone/Vilanterol 1 Each Blst.w.dev, 1 PUFF INH DAILY, (Reported) Last Action: Reviewed Folic Acid 1 Mg Tablet, 1 MG PO DAILY, (Reported) Last Action: Reviewed Galcanezumab-Gnlm 120 Mg/1 Ml Pen.injctr, 120 MG INJ MONTHLY, (Reported) Last Action: Reviewed Hydroxyzine HCl 25 Mg Tablet, 25 MG PO Q8H PRN for ITCHING, (Reported) Last Action: Reviewed Metformin HCl 1,000 Mg Tablet, 1,000 MG PO BID, (Reported) Last Action: Reviewed Naloxone HCl 4 Mg Beaver, 4 MG NS Q20M PRN for overdose . Prescribed by: EMPERATRIZ LUNA on 03/05/211246 Last Action: Reviewed Ondansetron 8 Mg Tab.rapdis, 8 MG PO Q8H PRN for NAUSEA/VOMITING, (Reported) Last Action: Reviewed Oxycodone HCl/Acetaminophen 1 Each Tablet, 1-2 TAB PO Q4H . Prescribed by: EMPERATRIZ LUNA on 03/05/211247 Last Action: Reviewed Pantoprazole Sodium 40 Mg Tablet.dr, 40 MG PO DAILY, (Reported) Last Action: Reviewed Pregabalin 75 Mg Capsule, 150 MG PO BID, (Reported) TAKES 2 (75MG) CAPS Last Action: Reviewed Propranolol HCl 120 Mg Cap.sa.24h, 120 MG PO DAILY, (Reported) Last Action: Reviewed Temozolomide 140 Mg Capsule, 140 MG PO UD, (Reported) DAYS 1-42 INSTRUCTED Last Action: Reviewed Tizanidine HCl 2 Mg Tablet, 6 MG PO HS, (Reported) TAKES 3 (2MG) TABS Last Action: Reviewed Topiramate 50 Mg Tablet, 150 MG PO BID, (Reported) TAKES 3 (50MG) TABLETS Last Action: Reviewed Ubrogepant 50 Mg Tablet, 50 MG PO UD PRN for MIGRAINE, (Reported) Last Action: Reviewed Patient Home Medication List Home Medication List Reviewed: Yes Past [place]-Wbxodt-Grmzby Hx Reviewed Nursing Assessment Reviewed/Agree w Nursing PMH: Yes Family Medical History Family Medial History: Myocardial infarction GRANDMOTHER AUNT GRANDFATHER Seizure disorder Stroke 19 MOTHER GRANDMOTHER AUNT MATERNAL GRANDFATHER Review of Systems-General Constitutional: chills, fever Respiratory: No cough, No short of breath Cardiovascular: No chest pain, No palpitations Gastrointestinal: abdominal pain, nausea; No vomiting Musculoskeletal: No back pain Skin: dryness Psychiatric/Neurological: Denies Anxiety, Denies Depressed, Denies Emotional Problems All Other Systems Reviewed Negative Unless Noted: Yes (Negative excepted noted.) Physical Exam-General Problems Physical Exam General Appearance: WD/WN, no apparent distress, obese HEENT: PERRL/EOMI, normal ENT inspection Neck: non-tender Respiratory: chest non-tender, no respiratory distress, no accessory muscle use Cardiovascular: regular rate, rhythm, no JVD Gastrointestinal: non tender, soft; No tenderness Rectal: deferred Back: no CVA tenderness, no vertebral tenderness Extremities: non-tender, pedal edema, swelling (hands) Neurologic/Psychiatric: alert, oriented x 3, depressed affect Skin: warm/dry, other (warm over port placement site, no erythema no purulent material expressed. Small scab at incision site) Lymphatic: no adenopathy Assessment/Plan Assessment/Plan Assessment/Plan Sepsis Glioblastoma Fever unknown origin Long-term anticoagulation Morbid obesity Patient is a 50-year-old female with port that was placed. She reports some purulent drainage. She was prescribed antibiotics but was not taking them. Patient has had fever. No source identified. Concerned that there could be the port for source especially with recent reporting of purulent drainage from the port site. Patient if has positive blood cultures and no other source identified would recommend removing the port. Her blood cultures are pending at this time. She is on antibiotics which we will continue. Hold anticoagulation. Will make n.p.o. after midnight in case port needs to be removed. Supervisory-Addendum Brief Verification & Attestation Participated in pt care: history, MDM, physical Personally performed: exam, history, MDM, supervision of care Care discussed with: Medical Student Procedures: n/a Results interpretation: Verified all documentation Verification and Attestation of Medical Student E/M Service A medical student performed and documented this service in my presence. I reviewed and verified all information documented by the medical student and made modifications to such information, when appropriate. I personally performed the physical exam and medical decision making. Francine Rushing, Mar 08, 2021,14:53 OUSMANE THORPE Mar 08, 2021 09:03 FRANCINE RUSHING DO Mar 08, 2021 14:49
[2021-03-08] MEDS: VANCOMYCIN INJECTION 1,750 MG in NS IV 500 ML 500 ML IV SCH ×2 (09:04→20:52)
[2021-03-08] MEDS: POTASSIUM CL 10MEQ/50ML IVPB 50 ML IV SCH ×3 (09:04→10:58)
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
[2021-03-08] MEDS ORDERED: PANTOPRAZOLE 40 MG (PROTONIX) TAB PO ONE (10:15)
[2021-03-08] MEDS ORDERED: toPIRamate 100 MG (TOPAMAX) TAB PO ONE ×3 (10:15→11:00)
[2021-03-08] MEDS ORDERED: toPIRamate 25 MG (TOPAMAX) TAB PO ONE ×2 (10:30→11:00)
[2021-03-08] MEDS ORDERED: PREGABALIN 150 MG (LYRICA) CAPSULE PO NR (10:45)
[2021-03-08] MEDS ORDERED: DIPHENOXYLATE/ATROPINE 2.5MG/0.025MG (LOMOTIL) TAB PO PRN (20:30)
[2021-03-08] MEDS ORDERED: ZIPRASIDONE 20 MG INJ (GEODON) VIAL IM PRN (20:30)
[2021-03-08] MEDS ORDERED: WATER (STERILE) FOR INJ 10 ML BTL INJ SCH (20:30)
[2021-03-08] MEDS: toPIRamate 25 MG (TOPAMAX) TAB PO SCH (20:50)
[2021-03-08] MEDS: toPIRamate 100 MG (TOPAMAX) TAB PO SCH (20:50)
[2021-03-08] MEDS: PREGABALIN 150 MG (LYRICA) CAPSULE PO SCH (20:51)
[2021-03-08] MEDS ORDERED: toPIRamate 100 MG (TOPAMAX) TAB PO SCH (21:00)
[2021-03-08] MEDS ORDERED: PREGABALIN 150 MG (LYRICA) CAPSULE PO SCH (21:00)
[2021-03-09] VITALS (11 sets, daily range): BP systolic 109–148; BP diastolic 63–85
[2021-03-09] MEDS: MEROPENEM 1,000 MG/SWFI 20 ML IV PUSH IV SCH ×6 (03:11→20:33)
[2021-03-09] MEDS: LACTATED RINGERS 1,000 ML IV SCH (03:12)
[2021-03-09] MEDS: fentaNYL INJ 100 MCG/2 ML AMP IV PRN (05:02)
[2021-03-09 06:02] LABS: BASOPHILS % (AUTO) 0 % (0-10); EOSINOPHILS % (AUTO) 0 % (0-10); HEMATOCRIT 27 % (35-52); HEMOGLOBIN 8.5 g/dL (11.5-16.0); LYMPHOCYTES # (AUTO) 0.6 10^3/uL (1.0-4.0); LYMPHOCYTES % (AUTO) 11 % (12-44); MEAN CORPUSCULAR HEMOGLOBIN 22 pg (25-34); MEAN CORPUSCULAR HGB CONC 31 g/dL (32-36); MEAN CORPUSCULAR VOLUME 70 fL (80-99); MONOCYTES # (AUTO) 0.4 10^3/uL (0.0-1.0); MONOCYTES % (AUTO) 8 % (0-12); NEUTROPHILS # (AUTO) 4.1 10^3/uL (1.8-7.8); NEUTROPHILS % (AUTO) 79 % (42-75); PLATELET COUNT 107 10^3/uL (130-400); WHITE BLOOD COUNT 5.1 10^3/uL (4.3-11.0)
[2021-03-09 06:12] LABS: ALBUMIN 2.5 GM/DL (3.2-4.5); POTASSIUM 4.3 MMOL/L (3.6-5.0)
[2021-03-09 06:14] LABS: CALCIUM 8.1 MG/DL (8.5-10.1)
[2021-03-09 06:17] LABS: BILIRUBIN,TOTAL 0.3 MG/DL (0.1-1.0)
[2021-03-09 06:18] LABS: CREATININE SERUM 0.79 MG/DL (0.60-1.30)
[2021-03-09] MEDS ORDERED: FUROSEMIDE 40 MG/4 ML INJ (LASIX) ONE (07:07)
[2021-03-09] MEDS ORDERED: FUROSEMIDE 40 MG/4 ML INJ (LASIX) IVP ONE (07:15)
--- NOTE | 2021-03-09 07:34 | Diagnostic Imaging Report ---
EXAM: CHEST 1 VIEW, AP/PA ONLY INDICATION: Shortness of breath. Expiratory wheezing. COMPARISON: Chest radiograph 03/07/2021. FINDINGS: Low lung volumes. Normal heart size and central pulmonary vascularity. Right subclavian CVC tip mid SVC. Implantable loop recorder. No focal pulmonary opacity. No pleural effusion or pneumothorax. No acute osseous findings. No significant change. IMPRESSION: No acute cardiopulmonary findings. Dictated by: Dictated on workstation # [id number]
--- NOTE | 2021-03-09 08:31 | Progress Note - Surgery ---
OUSMANE THORPE 03/09/21 0831: Subjective Date Seen by a Provider: Mar 09, 2021 Time Seen by a Provider: 08:20 Subjective/Events-last exam Patient states that pain over port hasn't gotten better, but it is non-tender to palpation. Patient had a fever of 100 at 0530, states she still feels feverish. Patient adamantly wants the port taken out so "she can start to feel better". Patient went NPO at midnight, states she hasn't had food or fluids overnight. Patient had an episode of nausea overnight. No vomiting. Patient states she has abdominal pain, but was non-tender to palpation. Patient stated she felt confused, was oriented to person and place, but couldn't tell me what day or month it is. Patient still has elias in place. Patient denies constipation. Patient states she hasn't started using the port for medication yet. Review of Systems General: Chills; No Night Sweats Cardiovascular: No: Chest Pain, Palpitations Gastrointestinal: Nausea, Abdominal Pain; No: Vomiting Musculoskeletal: back pain Neurological: Confusion Focused Exam Lactate Level 03/07/21 16:25: Lactic Acid Level 3.26*H 03/07/21 18:50: Lactic Acid Level 1.75 Objective Exam Vital Signs Date Time Temp Pulse Resp B/P (MAP) Pulse Ox O2 Delivery O2 Flow Rate FiO2 03/09/21 05:31 37.7 03/09/21 03:42 37.1 85 40 117/73 (88) 98 03/08/21 23:29 38.6 81 22 138/75 (96) 98 Room Air 03/08/21 20:50 Room Air 03/08/21 20:00 36.7 75 26 108/57 (74) 100 Room Air 03/08/21 16:00 37.8 75 28 126/65 (85) 100 Room Air 03/08/21 12:59 67 03/08/21 12:08 37.4 72 20 140/79 (99) 100 Room Air I & O 03/09/21 07:00 Intake Total 3625.0 ml Output Total 1475 ml Balance 2150.0 ml Capillary Refill : Less Than 3 Seconds General Appearance: WD/WN, Anxious, Mild Distress, Obese HEENT: PERRL/EOMI, Other (well healing surgical scar on the scalp) Neck: Full Range of Motion, Non Tender Respiratory: Chest Non Tender, Lungs Clear, Normal Breath Sounds, No Accessory Muscle Use, No Respiratory Distress Cardiovascular: Regular Rate, Rhythm, Normal Peripheral Pulses Gastrointestinal: non tender, soft; No tenderness Extremity: Non Tender, No Calf Tenderness, No Pedal Edema Neurologic/Psychiatric: Alert, No Motor/Sensory Deficits, Disoriented (Oriented to person and place, not time) Skin: Normal Color, Warm/Dry, Other (Port site is nontender to palpation there is no induration several small incisions small amount of scabbing and no erythema no tenderness no axillary adenopathy or tenderness noted.) Results Lab Laboratory Tests 03/08/21 19:20: Influenza Type A (RT-PCR) Not Detected, Influenza Type B (RT-PCR) Not Detected, SARS-CoV-2 RNA (RT-PCR) Not Detected 03/09/21 05:41: White Blood Count 5.1, Red Blood Count 3.91, Hemoglobin 8.5L, Hematocrit 27L, Mean Corpuscular Volume 70L, Mean Corpuscular Hemoglobin 22L, Mean Corpuscular Hemoglobin Concent 31L, Red Cell Distribution Width 20.9H, Platelet Count 107L, Mean Platelet Volume , Immature Granulocyte % (Auto) 1, Neutrophils (%) (Auto) 79H, Lymphocytes (%) (Auto) 11L, Monocytes (%) (Auto) 8, Eosinophils (%) (Auto) 0, Basophils (%) (Auto) 0, Neutrophils # (Auto) 4.1, Lymphocytes # (Auto) 0.6L, Monocytes # (Auto) 0.4, Eosinophils # (Auto) 0.0, Basophils # (Auto) 0.0, Immature Granulocyte # (Auto) 0.1, Percent Immature Platelet Fraction 5.8, Sodium Level 133L, Potassium Level 4.3, Chloride Level 108H, Carbon Dioxide Level 11L, Anion Gap 14, Blood Urea Nitrogen 13, Creatinine 0.79, Estimat Glomerular Filtration Rate 78, BUN/Creatinine Ratio 16, Glucose Level 142H, Calcium Level 8.1L, Corrected Calcium 9.3, Total Bilirubin 0.3, Aspartate Amino Transf (AST/SGOT) 71H, Alanine Aminotransferase (ALT/SGPT) 39, Alkaline Phosphatase 125, Total Protein 6.0L, Albumin 2.5L Microbiology 03/07/21 Blood Culture - Preliminary, Resulted Staphylococcus aureus Assessment/Plan Assessment/Plan Assessment/Plan Assessment Sepsis Glioblastoma Fever unknown origin Long-term anticoagulation Morbid obesity Plan Patient is a 50-year-old female with port that was placed. She reports some purulent drainage. She was prescribed antibiotics but was not taking them. Patient has had fever. No source identified. Concerned that there could be the port for source especially with recent reporting of purulent drainage from the port site. Patient if has positive blood cultures and no other source identified would recommend removing the port. Her blood cultures are pending at this time. She is on antibiotics which we will continue. Hold anticoagulation. Continue NPO until culture results. FRANCINE MCLEAN DO 03/09/21 0905: Subjective Subjective/Events-last exam Still pain at port site. Still with fever. Patient had port tried to be accessed and purulent material erupted. Denies n/v fever sweats chills shortness of breath or chest pain at this time. Objective Exam General Appearance: No Apparent Distress, WD/WN, Anxious; No Mild Distress HEENT: PERRL/EOMI Neck: Full Range of Motion, Non Tender Respiratory: Chest Non Tender, No Accessory Muscle Use, No Respiratory Distress Cardiovascular: Regular Rate, Rhythm, No JVD Gastrointestinal: non tender, soft; No tenderness Extremity: Non Tender, No Calf Tenderness Neurologic/Psychiatric: Alert, Oriented x3, No Motor/Sensory Deficits; No Disoriented (Oriented to person and place, not time) Skin: Normal Color, Warm/Dry, Other (Port site is minimal tenderness with scabbing over latera aspect of incision, very slight erythema) Lymphatic: No Adenopathy Assessment/Plan Assessment/Plan Assessment/Plan Sepsis Glioblastoma Fever unknown origin Long-term anticoagulation Morbid obesity port tried to be accessed and nursing reported purulent drainage. We discussed risks and benefits of port removal and she understands and wishes to proceed. Understands likely packing until heals from inside. Will culture tip. Supervisory-Addendum Brief Verification & Attestation Participated in pt care: history, MDM, physical Personally performed: exam, history, MDM, supervision of care Care discussed with: Medical Student Procedures: n/a Results interpretation: Verified all documentation Verification and Attestation of Medical Student E/M Service A medical student performed and documented this service in my presence. I reviewed and verified all information documented by the medical student and made modifications to such information, when appropriate. I personally performed the physical exam and medical decision making. Francine Mclean, Mar 09, 2021,09:05 OUSMANE THORPE Mar 09, 2021 08:31 FRANCINE MCLEAN DO Mar 09, 2021 09:05
[2021-03-09] MEDS ORDERED: PROPOFOL INJECTION 50 ML IV ONE (08:58)
[2021-03-09] MEDS ORDERED: MIDAZOLAM 2 MG/2 ML (VERSED) VIAL ONE (08:58)
[2021-03-09] MEDS ORDERED: fentaNYL INJ 100 MCG/2 ML AMP ONE (08:58)
[2021-03-09] MEDS ORDERED: LIDOCAINE/EPI 1%-1:100,000 (XYLOCAINE) 20ML ONE (09:04)
[2021-03-09] MEDS ORDERED: KETAMINE SYRINGE 50 MG/5 ML SYRINGE ONE (09:17)
--- NOTE | 2021-03-09 09:42 | Progress Note - Hospitalist ---
Subjective HPI/CC On Admission Date Seen by Provider: Mar 09, 2021 Time Seen by Provider: 09:00 This 50-year-old woman presents to the emergency room with complaints of fever, confusion, and diffuse aches. She recently finished a round of chemotherapy for a brain tumor. She underwent surgical resection as well. She reports suspicion of infection at her port site about a week ago. Antibiotics were prescribed but she has not received them yet. She has been Covid vaccinated. Temperature is currently 100.8. She has experienced some nausea and EMS gave Zofran in route. Upon my arrival the patient was able to answer questions knew that she was in the hospital appeared to be in pain wincing at times thought it was her chest but she was very unclear and could not localize any discomfort. She thought that her port might be infected because she had a little bit of oozing at one of the incision sites last week apparently according to her she thought it was put in about 3 weeks ago she reports minimal discomfort to the site currently. She been feeling fatigued and feeling feverish with chills at home. She voiced no other complaints with negative review of systems. As she was Covid negative via PCR. Subjective/Events-last exam Patient pleasantly confused she denies chest pain or shortness of breath denies headache. Staff reported increase in respiratory rate and a little bit of wheezing currently the patient's respiratory rate was up to 20 but she otherwise did not appear to be in respiratory distress. Focused Exam Lactate Level 03/07/21 16:25: Lactic Acid Level 3.26*H 03/07/21 18:50: Lactic Acid Level 1.75 Objective Exam Vital Signs Vital Signs Date Time Temp Pulse Resp B/P (MAP) Pulse Ox O2 Delivery O2 Flow Rate FiO2 03/09/21 08:00 37.5 76 22 127/81 (96) 98 Room Air Capillary Refill : Less Than 3 Seconds General Appearance: Anxious, Obese Respiratory: Chest Non Tender, No Accessory Muscle Use, Other (Mild expiratory wheezing little more prominent on the right side no rales or rhonchi appreciated.) Cardiovascular: Regular Rate, Rhythm, No JVD, No Murmur Gastrointestinal: Normal Bowel Sounds, No Organomegaly, No Pulsatile Mass, Non Tender, Soft Extremity: Normal Inspection, Non Tender, No Pedal Edema Results/Procedures Lab Laboratory Tests 03/09/21 05:41 Patient resulted labs reviewed. Assessment/Plan Assessment and Plan Assess & Plan/Chief Complaint A/P 1. Sepsis no clear-cut etiology will need to assume strong possibility of port infection despite unremarkable site on examination this morning will defer to surgery and continue broad-spectrum antibiotics. Cardiovascular examination unremarkable no murmurs blood culture.On admission from peripheral site growing staph aureus will presume MRSA continue vancomycin. This makes a port infection considering lack of other sources more likely with continued fever will need port extraction sooner as opposed to later especially in light of the fact that there is been a significant drop in her platelet count down to 107,000 from the mid 200,000 range yesterday. Currently patient exhibiting signs of delirium without agitated behavior during my examination likely due to underlying sepsis. Physical exam site continues to be quite benign in regards to the fact that there is no tenderness around the port and cardiac examination is benign as well with no evidence for murmur. Will need echocardiography which to my knowledge has not been done as of yet reorder. 2. Immune compromised status secondary to recent chemotherapy for glioblastoma multiforme of the brain. 3. Eliquis use reported patient reports a past history of DVT will hold until surgery evaluates for possible port removal for further evaluation for sepsis source we will obtain an echocardiogram initiating with transthoracic FILI BRITT MD Mar 09, 2021 09:42
--- NOTE | 2021-03-09 09:47 | Progress Note-Post Operative ---
Post-Operative Progess Note Surgeon (s)/Negotiator Sales (s) Surgeon FRANCINE RUSHING DO Negotiator Sales: na Pre-Operative Diagnosis fever unknown origin, possible infected port Post-Operative Diagnosis same Procedure & Operative Findings Date of Procedure 03/09/21 Procedure Performed/Findings PROCEDURE: Removal of port COMPLICATIONS: None. INDICATIONS: The patient is a 50 year-old female who had a port previously placed. Patient with possible infected port and wishes to have port removed. The patient was explained risk and benefits of the procedure and wished to proceed with procedure. Consent was signed on the chart. PROCEDURE: The patient was taken to the operating suite and was prepped and draped in sterile fashion. A surgical pause was performed. Local anesthetic was infiltrated to the area around the port. A number 15 blade scalpel was used to make an incision. Cautery was used to dissect down to the port which was then grasped and then dissected around. The catheter was removed in its entirety. Thin, slightly purulent material in pocket around port present. Culture obtained. The port was then able to be dissected out of the pocket and removed. The tip of catheter was obtained for culture. The wound was then irrigated with copious amounts of irrigation. Hemostasis had been achieved. The wound was packed with 1 inch Iodoform gauze. The area was then washed and dried and sterile bandage placed over the incision. The patient tolerated the procedure well without complication and was taken to recovery room in stable condition. Anesthesia Type mac c local Estimated Blood Loss Estimated blood loss (mL): minimal Specimens/Packing Specimens Removed port pocket culture, tip of catheter for culture Packing: Iodoform gauze FRANCINE RUSHING DO Mar 09, 2021 09:47
--- NOTE | 2021-03-09 09:58 | Anesthesia-General Post-Op ---
MAC Patient Condition Mental Status/LOC: Same as Preop Cardiovascular: Satisfactory Nausea/Vomiting: Absent Respiratory: Satisfactory Pain: Controlled Complications: Absent Post Op Complications Complications None Follow Up Care/Instructions Patient Instructions None needed. Anesthesiology Discharge Order Discharge Order Patient is doing well, no complaints, stable vital signs, no apparent adverse anesthesia problems. No complications reported per nursing. HORTENSIA PARKINSON CRNA Mar 09, 2021 09:58
[2021-03-09] MEDS ORDERED: ONDANSETRON 4 MG/2 ML (SDV) Z0FRAN IVP PRN (10:00)
[2021-03-09] MEDS ORDERED: HYDROmorphone 2 MG/ML VIAL (DILAUDID) IV ONE (10:00)
[2021-03-09] MEDS: VANCOMYCIN INJECTION 1,750 MG in NS IV 500 ML 500 ML IV SCH ×2 (10:47→20:39)
[2021-03-09] MEDS: PANTOPRAZOLE 40 MG (PROTONIX) TAB PO SCH (12:24)
[2021-03-09] MEDS: ACETAMINOPHEN 500 MG TAB (TYLENOL) PO PRN (12:24)
[2021-03-09] MEDS: toPIRamate 100 MG (TOPAMAX) TAB PO SCH ×2 (12:24→20:40)
[2021-03-09] MEDS: toPIRamate 25 MG (TOPAMAX) TAB PO SCH ×2 (12:24→20:40)
[2021-03-09] MEDS: PREGABALIN 150 MG (LYRICA) CAPSULE PO SCH ×2 (12:24→20:40)
[2021-03-09] MEDS: HYDROcodone/APAP 5 MG/325 MG (LORTAB) TAB PO PRN (20:40)
[2021-03-09] MEDS: ONDANSETRON 4 MG/2 ML (SDV) Z0FRAN IV PRN (20:45)
[2021-03-10] MEDS: HYDROcodone/APAP 5 MG/325 MG (LORTAB) TAB PO PRN ×4 (00:28→23:03)
[2021-03-10] MEDS: MEROPENEM 1,000 MG/SWFI 20 ML IV PUSH IV SCH ×6 (03:14→20:52)
[2021-03-10 04:10] VITALS: BP 120/79
[2021-03-10] MEDS: fentaNYL INJ 100 MCG/2 ML AMP IV PRN (06:25)
--- NOTE | 2021-03-10 07:14 | Progress Note - Surgery ---
OUSMANE THORPE 03/10/21 0714: Subjective Date Seen by a Provider: Mar 10, 2021 Time Seen by a Provider: 07:05 Subjective/Events-last exam Patient had been administered Fentanyl prior to me seeing her so she was a little groggy. Nurse states patient has been doing much better and that yesterday after the surgery they had been attempting to get her up and out of bed. Patient is currently experiencing a migraine. The pain is on the right side and her migraines are associated with some vision changes. She states things get blurred around the edges and she is more sensitive to bright lights. The incision from the port removal looks dry and clean. No signs of inflammation or infection. The patient does state some tenderness in left posterior calf. It does not look inflamed or feel hot to touch. Patient does have a wet sounding cough. Patient denies bowel movement but has been passing gas. Patient still has a elias. Micro is still pending. Patient denies fever, chills, vomiting. Patient does complain of some Nausea and abdominal pain. Review of Systems General: No Chills, No Night Sweats HEENT: Head Aches (R sided migraine), Visual Changes Pulmonary: No Dyspnea; Cough Cardiovascular: No: Chest Pain, Palpitations Gastrointestinal: Nausea, Abdominal Pain; No: Vomiting Musculoskeletal: leg pain (L posterior calf) Focused Exam Lactate Level 03/07/21 16:25: Lactic Acid Level 3.26*H 03/07/21 18:50: Lactic Acid Level 1.75 Time of Focused Exam: 17:30 Objective Exam Vital Signs Date Time Temp Pulse Resp B/P (MAP) Pulse Ox O2 Delivery O2 Flow Rate FiO2 03/10/21 04:10 35.9 72 18 120/79 (93) 97 Room Air 03/09/21 23:40 36.5 78 18 120/75 (90) 97 Room Air 03/09/21 20:40 Room Air 03/09/21 19:53 36.8 73 22 148/81 (103) 100 Room Air 03/09/21 15:42 36.2 65 24 125/75 (92) 99 Room Air 03/09/21 12:01 37.2 70 22 120/73 (89) 99 Room Air 03/09/21 10:47 37.5 76 22 109/70 (83) 96 Room Air 03/09/21 10:25 Room Air 03/09/21 10:19 37.1 28 118/85 (96) 95 Room Air 03/09/21 10:10 Room Air 03/09/21 10:09 28 120/63 (82) 98 OxyMask 10 03/09/21 09:59 24 124/65 (84) 98 OxyMask 10 03/09/21 09:49 37.8 28 116/69 (85) 96 OxyMask 10 03/09/21 09:49 OxyMask 10 03/09/21 08:00 98 Room Air 03/09/21 08:00 37.5 76 22 127/81 (96) 98 Room Air I & O 03/10/21 07:00 Intake Total 51783.5 ml Output Total 3575 ml Balance 6826.5 ml Capillary Refill : Less Than 3 Seconds General Appearance: No Apparent Distress, WD/WN, Obese HEENT: PERRL/EOMI, Other (well healing surgical scar on the scalp) Neck: Normal Inspection, Non Tender Respiratory: Chest Non Tender, Lungs Clear, Normal Breath Sounds, No Accessory Muscle Use, No Respiratory Distress, Other (cough on deep inspiration) Cardiovascular: Regular Rate, Rhythm, No Edema, Normal Peripheral Pulses Gastrointestinal: normal bowel sounds, non tender, soft Extremity: No Pedal Edema, Calf Tenderness (left sided tenderness to palpation midcalf ) Neurologic/Psychiatric: Alert, No Motor/Sensory Deficits, Other (Oriented to person and place, isn't sure of day or month, knows the year, states she never knows the day.) Skin: Normal Color, Warm/Dry, Other (Port site is minimal tenderness with scabbing over latera aspect of incision, very slight erythema) Lymphatic: No Adenopathy Results Lab Laboratory Tests 03/09/21 09:54: Glucometer 187H Microbiology 03/09/21 Gram Stain, Resulted Pending 03/09/21 Anaerobic Culture, Resulted Pending 03/09/21 Surgical Culture - Preliminary, Resulted 03/08/21 MRSA Screen - Final, Complete MRSA not isolated 03/08/21 Gram Stain, Resulted Pending 03/08/21 Wound Culture - Preliminary, Resulted Staphylococcus aureus 03/08/21 Blood Culture - Preliminary, Resulted No growth 03/07/21 Urine Culture - Preliminary, Resulted Staphylococcus haemolyticus Assessment/Plan Assessment/Plan Assessment/Plan Sepsis Glioblastoma Fever unknown origin Long-term anticoagulation Morbid obesity Migraine Continue antibiotics - make appropriate changes pending micro Continue pain medication for migraines; could consider triptans if recur. Continue medical management ICS and SCDs- patient stated she would use both Up and ambulating when possible Continue monitoring incision from port removal surgery FRANCINE MCLEAN DO 03/10/21 1518: Subjective Subjective/Events-last exam Doing okay. Pain controlled. No fever. S/p port removal. Cultures likely staph. Slight nausea. Denies n/v fever sweats chills shortness of breath or chest pain at this time. Objective Exam General Appearance: No Apparent Distress, WD/WN, Obese HEENT: PERRL/EOMI Neck: Normal Inspection, Non Tender Respiratory: Chest Non Tender, Other (open wound right chest, no surrounding erythema) Cardiovascular: Regular Rate, Rhythm, No Edema Gastrointestinal: normal bowel sounds, non tender, soft Extremity: No Pedal Edema Neurologic/Psychiatric: Alert, Oriented x3, No Motor/Sensory Deficits Skin: Normal Color, Warm/Dry Lymphatic: No Adenopathy Assessment/Plan Assessment/Plan Assessment/Plan Sepsis Glioblastoma Fever unknown origin Long-term anticoagulation Morbid obesity Migraine s/p port removal Continue antibiotics - make appropriate changes pending micro Pain control Continue medical management IS and SCDs Up and ambulating when possible wound care Supervisory-Addendum Brief Verification & Attestation Participated in pt care: history, MDM, physical Personally performed: exam, history, MDM, supervision of care Care discussed with: Medical Student Procedures: n/a Results interpretation: Verified all documentation Verification and Attestation of Medical Student E/M Service A medical student performed and documented this service in my presence. I reviewed and verified all information documented by the medical student and made modifications to such information, when appropriate. I personally performed the physical exam and medical decision making. Francine Mclean, Mar 10, 2021,15:18 OUSMANE THORPE Mar 10, 2021 07:14 FRANCINE MCLEAN DO Mar 10, 2021 15:18
[2021-03-10 08:00] VITALS: BP 136/84
[2021-03-10] MEDS: PANTOPRAZOLE 40 MG (PROTONIX) TAB PO SCH (08:27)
[2021-03-10] MEDS: toPIRamate 25 MG (TOPAMAX) TAB PO SCH ×2 (08:27→20:52)
[2021-03-10] MEDS: toPIRamate 100 MG (TOPAMAX) TAB PO SCH ×2 (08:27→20:52)
[2021-03-10] MEDS: VANCOMYCIN INJECTION 1,750 MG in NS IV 500 ML 500 ML IV SCH ×2 (08:27→20:53)
[2021-03-10] MEDS: PREGABALIN 150 MG (LYRICA) CAPSULE PO SCH ×2 (08:27→20:53)
--- NOTE | 2021-03-10 11:25 | Physical Therapy Evaluation ---
PT Evaluation-General Medical Diagnosis Admission Date Mar 07, 2021 at 20:21 Medical Diagnosis: severe sepsis/N&V myalgia Onset Date: Mar 07, 2021 Therapy Diagnosis Therapy Diagnosis: debility/weakness Height/Weight Height (Feet): 5 Height (Inches): 0 Weight (Pounds): 303 Weight (Ounces): 6.0 Precautions Precautions/Isolations: Fall Prevention, Standard Precautions Referral Physician: Miguel Reason for Referral: Evaluation/Treatment Medical History Pertinent Medical History: Atrial Fib, COPD, DM, GERD, HTN, Smoking, TBI (brain tumor) Current History EMS secondary to fever/nausea (had a port infection and was to receive antibiotics but did not get them filled) Reviewed History: Yes Social History Home: Single Level Current Living Status: Spouse Prior Prior Level of Function SCALE: Activities may be completed with or without assistive devices. 3-Lpmuxivosh-vjgrzwx completes the activity by him/herself with no assistance from a helper. 5-Set-up or Clean-up Assistance-helper sets up or cleans up; patient completes activity. [place] assists only prior to or following the activity. 4-Supervision or Touching Assistance-helper provides verbal cues and/or to uching/steadying and/or contact guard assistance as patient completes activity. Assistance may be provided throughout the activity or intermittently. 3-Partial/Moderate Assistance-helper does LESS THAN HALF the effort. [place] lifts, holds or supports trunk or limbs, but provides less than half the effort. 2-Substantial/Maximal Assistance-helper does MORE THAN HALF the effort. [place] lifts or holds trunk or limbs and provides more than half the effort. 1-Hgklbxelz-lyjatn does ALL the effort. Patient does none of the effort to complete the activity. Or, the assistance of 2 or more helpers is required for the patient to complete the activity. If activity was not attempted, code reason: 7-Patient Refused. 9-Not Applicable-not attempted and the patient did not perform the activity before the current illness, exacerbation or injury. 10-Not Attempted due to Environmental Limitations-(lack of equipment, weather restraints, etc.). 88-Not Attempted due to Medical Conditions or Safety Concerns. Bed Mobility: 6 Transfers (B,C,W/C): 6 Gait: 6 Indoor Mobility (Ambulation): Independent PT Evaluation-Current Subjective Patient c/o total body pain and did not rate. Objective Patient Orientation: Person, Time, Situation Attachments: [place] Catheter ROM/Strength ROM Lower Extremities bilateral LE WFL Strength Lower Extremities 4-/5 grossly bilateral LE (patient would not follow direction for formal testing) Integumentary/Posture Bowel Incontinence: No Bladder Incontinence: [place] Cath Posture WFL Neuromuscular (Tone, Coordination, Reflexes) grossly intact (while sitting EOB, patient put her right are over her face, closed her eyes and began shaking for 2-5 seconds then immediately begins crying stating, "I just had my first seizure." RN in to educate patient on signs of a seizure during and after. Patient voiced understanding." Sensory Vision: Functional Hearing: Functional Transfers Lying to Sitting/Side of Bed(Q: 2 Sit to Stand (QC): 3 Chair/Awl-ax-Kcqdx Xfer(QC): 3 Gait Does the Patient Walk?: Yes Mode of Locomotion: Walk Anticipated Mode of Locomotion: Walk Walk 10 feet (QC): 4 Walk 50 ft with 2 Turns(QC): 7 Walk 150 ft (QC): 7 Distance: 10' with refusal to go farther Gait Assistive Device: FWW Comments/Gait Description functional with on deviation Balance Sitting Static: Normal Sitting Dynamic: Normal Standing Static: Normal Standing Dynamic: Normal Assessment/Needs 50 y.o. female, will be seen short term by skilled PT to address functional strength and mobility to improve current LOF to safely return to home at maximum LOF. Rehab Potential: Fair PT Top Knitter Goals Shelter Goals PT Shelter Goals Time Frame: Mar 22, 2021 Roll Left & Right (QC): 6 Sit to Lying (QC): 6 Lying-Sitting on Side/Bed(QC): 6 Sit to Stand (QC): 6 Chair/Eoq-ys-Ostdk Xfer(QC): 6 Toilet Transfer (QC): 6 Does the Patient Walk: Yes Walk 10 feet (QC): 6 Walk 50ft with 2 Turns (QC): 6 Walk 150 ft (QC): 6 PT Plan Problem List Problem List: Activity Tolerance, Safety, Bed Mobility Treatment/Plan Treatment Plan: Continue Plan of Care Treatment Plan: Bed Mobility, Education, Functional Activity Michael, Functional Strength, Gait, Safety, Therapeutic Exercise, Transfers Treatment Duration: Mar 22, 2021 Frequency: 6 times per week Estimated Hrs Per Day: .25 hour per day Patient and/or Family Agrees t: Yes Time/GCodes Time In: 1050 Time Out: 1108 Total Billed Treatment Time: 18 Total Billed Treatment 1 visit EVModC 18 min JOSUE PERALTA PT Mar 10, 2021 11:25
[2021-03-10] MEDS ORDERED: RT-ALBUTEROL SULF 2.5 MG/3 ML PRE-MIX VIAL INH PRN (11:45)
[2021-03-10] MEDS ORDERED: NON-FORMULARY MEDICATION 1 EA EA (Hydroxyzine HCl 25 MG) PO PRN (11:45)
[2021-03-10] MEDS ORDERED: TEMOZOLOMIDE 140 MG PO SCH (11:45)
[2021-03-10] MEDS ORDERED: CALCIUM CARBONATE 400 MG PO PRN (11:45)
[2021-03-10] MEDS ORDERED: GALCANEZUMAB GNLM 120 MG INJ SCH (11:45)
[2021-03-10] MEDS ORDERED: HYDROmorphone 2 MG/ML VIAL (DILAUDID) IVP PRN (11:45)
[2021-03-10] MEDS ORDERED: NON-FORMULARY MEDICATION 1 EA EA (Ondansetron (Ondansetron Odt) 8 MG) PO PRN (11:45)
[2021-03-10] MEDS: oxyCODONE/APAP 5/325MG (PERCOCET 5) TABLET PO SCH ×3 (11:50→20:52)
[2021-03-10 12:00] VITALS: BP 137/82
--- NOTE | 2021-03-10 13:45 | Occupational Therapy Eval ---
OT Evaluation-General/PLF Medical Diagnosis Admission Date Mar 07, 2021 at 20:21 Medical Diagnosis: severe sepsis/N&V myalgia Onset Date: Mar 07, 2021 Therapy Diagnosis Therapy Diagnosis: Weakness Height/Weight Height (Feet): 5 Height (Inches): 0 Weight (Pounds): 303 Weight (Ounces): 6.0 Precautions Precautions/Isolations: Fall Prevention, Standard Precautions Weight Bear Status Weight Bearing Restriction: Weight Bearing/Tolerated Referral Physician: Miguel Referral Reason: Activity Tolerance, Self Care, Evaluation/Treatment, Strengthening/ROM Medical History Pertinent Medical History: Atrial Fib, COPD, DM, GERD, HTN, Smoking, TBI (brain tumor) Additional Medical History Brain shunt, hysterectomy, Chemo, bilateral knee surgery Right humerus fx Current History Pt. became septic after having infection in port. Port removed. Pt. receiving chemo for glioblastoma of brain. Reviewed History: Yes Social History Home: Single Level (RV) Current Living Status: Spouse Entry Into Home: Stairs With Railing Steps Into Home: 2 ADL-Prior Level of Function SCALE: Activities may be completed with or without assistive devices. 8-Bpnzvbncwk-cdmgyym completes the activity by him/herself with no assistance from a helper. 5-Set-up or Clean-up Assistance-helper sets up or cleans up; patient completes activity. [place] assists only prior to or following the activity. 4-Supervision or Touching Assistance-helper provides verbal cues and/or touching/steadying and/or contact guard assistance as patient completes activity. Assistance may be provided throughout the activity or intermittently. 3-Partial/Moderate Assistance-helper does LESS THAN HALF the effort. [place] lifts, holds or supports trunk or limbs, but provides less than half the effort. 2-Substantial/Maximal Assistance-helper does MORE THAN HALF the effort. [place] lifts or holds trunk or limbs and provides more than half the effort. 5-Rxogjszkt-izwaxw does ALL the effort. Patient does none of the effort to complete the activity. Or, the assistance of 2 or more helpers is required for the patient to complete the activity. If activity was not attempted, code reason: 7-Patient Refused. 9-Not Applicable-not attempted and the patient did not perform the activity before the current illness, exacerbation or injury. 10-Not Attempted due to Environmental Limitations-(lack of equipment, weather restraints, etc.). 88-Not Attempted due to Medical Conditions or Safety Concerns. ADL PLOF Comments Pt. inconsistent with answers regarding how much assistance that she requires. She states that she lives with her spouse in an RV. She receives 39 hours of caregiving assistance per week, and he receives 40 a week. She gets help with bathing/dressing, cooking/cleaning. Self Care: Unknown Functional Cognition: Unknown OT Current Status Subjective Pt. does not report pain level, but states that she is unable to move her right arm at shoulder level. She also states that she is unable to walker or stand. Nursing reports that pt. is able to stand. Pt. up in reclining chair at time of evaluation. Mental Status/Objective Patient Orientation: Unable to Assess Current Hand Dominance: Right Upper Extremity ROM Left- WFL throughout. Right- Pt. unable to move at shoulder level. Does not even attempt and states, "thats funny" when OT asks her to. She reports its due to having broke it before. She is able to move her right arm at elbow, wrist level. No difficulty with her hand. Upper Extremity Coordination No reported or observed difficulty with coordination. Pt. able to open packages on tray. ADL-Treatment Eating (QC): 6 On/Off Footwear (QC): 2 (Pt. reports that she typically has no difficulty with donning socks, but states that she gets assistance at home from caregiver. Declines practicing at this time.) Other Treatments Pt. up in chair. Pt. talking with OT regarding previous level and assist at home. Nursing changes wound dressings while OT in room. Pt's tray arrives at same time. When tray arrives pt reports that she is hungry. Declines standing stating that she is unable to. Due to delay from wound care, OT places tray in front of pt. so that she can eat. Pt. immediately opens packages but becomes confuses as to what she has. OT offers to order her something else. She states that she will "figure it out." Reports that she does not need assistance. OT will check back on her as time allows. Pt. indicates that she has difficulty using her hand but just opened packages with it. She also indicates that she can't stand but is up in the chair and nursing reports that she was able to stand to get there. Spoke with nursing after assessment about pt's behavior. Will write goals and continue to monitor to provide best care possible for increased independence. Education OT Patient Education: Correct positioning, Modified ADL techniques, Progress toward Goal/Update tx plan, Purpose of tx/functional activities, Reviewed precautions, Rehab process, Transfer techniques Teaching Recipient: Patient Teaching Methods: Demonstration, Discussion Response to Teaching: Reinforcement Needed OT Short Term Goals Short Term Goals Time Frame: Mar 17, 2021 Eatin Oral hygiene: 4 Toileting hygiene: 4 Shower/bathe self: 3 Upper body dressin Lower body dressin Putting on/taking off footwear: 4 OT Residential Goals Residential Goals Time Frame: Mar 24, 2021 Eating (QC): 6 Oral Hygiene (QC): 6 Toileting Hygiene (QC): 6 Shower/Bathe Self (QC): 4 Upper Body Dressing (QC): 5 Lower Body Dressing (QC): 4 On/Off Footwear (QC): 4 Additional Goals: 1-Demonstrate ADL Tasks, 2-Verbalize Understanding, 3- ImproveStrength/Michael 1=Demonstrate adherence to instructed precautions during ADL tasks. 2=Patient will verbalize/demonstrate understanding of assistive devices/mo difications for ADL. 3=Patient will improve strength/tolerance for activity to enable patient to perform ADL's. OT Education/Plan Problem List/Assessment Assessment: Decreased Activ Tolerance, Decreased UE Strength, Dependent Transfers, Impaired Cognition, Impaired I ADL's, Impaired Self-Care Skills, Restricted Funct UE ROM Discharge Recommendations Plan/Recommendations: Continue POC Therapy Discharge Recommendati: Post Acute OT Treatment Plan/Plan of Care Treatment,Training & Education: Yes Patient would benefit from OT for education, treatment and training to promote independence in ADL's, mobility, safety and/or upper extremity function for ADL's. Plan of Care: ADL Retraining, Functional Mobility, UE Funct Exercise/Act Treatment Duration: Mar 24, 2021 Frequency: 5 times per week Estimated Hrs Per Day: .25 hour per day Agreement: Yes Rehab Potential: Fair Time/GCodes Start Time: 11:20 Stop Time: 11:35 Total Time Billed (hr/min): 15 Billed Treatment Time 1, CARMELA JESUS ALBERTOKADESHARI OT Mar 10, 2021 13:45
[2021-03-10] MEDS ORDERED: hydrOXYzine (VISTARIL/ATARAX) 25 MG capsule/tablet PO PRN (14:00)
[2021-03-10] MEDS ORDERED: ONDANSETRON 4 MG (ZOFRAN) ORAL DISSOLVE TAB PO PRN (14:00)
[2021-03-10] MEDS ORDERED: LEVO750T39 PO (14:02)
[2021-03-10] MEDS ORDERED: NALO4SPR NS (14:02)
[2021-03-10] MEDS ORDERED: OXYC1TAB11 PO (14:02)
--- NOTE | 2021-03-10 16:14 | Progress Note - Hospitalist ---
MAYELIN LERNER 03/10/21 1614: Subjective HPI/CC On Admission Date Seen by Provider: Mar 10, 2021 Time Seen by Provider: 09:00 This 50-year-old woman presents to the emergency room with complaints of fever, confusion, and diffuse aches. She recently finished a round of chemotherapy for a brain tumor. She underwent surgical resection as well. She reports suspicion of infection at her port site about a week ago. Antibiotics were prescribed but she has not received them yet. She has been Covid vaccinated. Temperature is currently 100.8. She has experienced some nausea and EMS gave Zofran in route. Upon my arrival the patient was able to answer questions knew that she was in the hospital appeared to be in pain wincing at times thought it was her chest but she was very unclear and could not localize any discomfort. She thought that her port might be infected because she had a little bit of oozing at one of the incision sites last week apparently according to her she thought it was put in about 3 weeks ago she reports minimal discomfort to the site currently. She been feeling fatigued and feeling feverish with chills at home. She voiced no other complaints with negative review of systems. As she was Covid negative via PCR. Subjective/Events-last exam Pt complains of a migraine. Pt reports not eating and no bowel/bladder movement for one day. Pt also reports cough, nausea, blurry vision, and chest pain. Denies fever, chills, vomiting, diarrhea, or SOB. Port site incision is open but does not seemed to be inflamed nor purulent. Preliminary growth of Staph aureus and will continue Vancomycin. Further monitoring of the wound by surgery will be needed. Review of Systems General: No Chills, No Appetite HEENT: Head Aches, Visual Changes; No Sore Throat Pulmonary: No Dyspnea; Cough Cardiovascular: Chest Pain; No: Palpitations, Edema Gastrointestinal: Nausea; No: Vomiting, Diarrhea Genitourinary: No Dysuria, No Frequency, No Hematuria Neurological: No: Weakness, Numbness, Seizures Focused Exam Lactate Level 03/07/21 18:50: Lactic Acid Level 1.75 Time of Focused Exam: 17:30 Objective Exam Vital Signs Vital Signs Date Time Temp Pulse Resp B/P (MAP) Pulse Ox O2 Delivery O2 Flow Rate FiO2 03/10/21 16:17 35.6 80 20 120/76 (91) 100 Room Air 03/09/21 10:09 10 Capillary Refill : Less Than 3 Seconds General Appearance: WD/WN, Moderate Distress, Obese HEENT: PERRL/EOMI Neck: Full Range of Motion, Normal Inspection, Supple Respiratory: Normal Breath Sounds Cardiovascular: Regular Rate, Rhythm Gastrointestinal: Soft Extremity: Normal Capillary Refill, Normal Inspection, Non Tender, No Calf Tenderness, No Pedal Edema Neurologic/Psychiatric: Alert, Oriented x3 Skin: Normal Color, Warm/Dry, Tattoos/Piercings Results/Procedures Lab Patient resulted labs reviewed. Assessment/Plan Assessment and Plan Assess & Plan/Chief Complaint Sepsis of unknown etiology Port site/Blood cultures preliminary growth for Staph Aureus Continue Vancomycin Urine preliminary growth Staph Haemolyticus Surgery consult Continue to monitor incision/wound care Immunocompromise from Chemotherapy of Glioblastoma Multiforme Detention Anticoag (Eliquis) Hold until surgery consult Morbid Obesity SHAWNA POWERS DO 03/11/21 0520: Subjective Subjective/Events-last exam Pt doing about the same but multiple somatic complains Dilaudid will be given for the overall pain Chest pain reported EKG no acute findings Port infection with packing in place by Dr. Mclean Decreased appetite Antibiotics maintained Appreciate Dr. Mclean Review of Systems General: Fatigue Cardiovascular: Chest Pain Objective Exam General Appearance: No Apparent Distress, WD/WN, Anxious, Chronically ill, Obese Respiratory: Lungs Clear, Normal Breath Sounds Cardiovascular: Regular Rate, Rhythm Neurologic/Psychiatric: Alert, Oriented x3 Assessment/Plan Assessment and Plan Assess & Plan/Chief Complaint Supportive care Somatic complaints Pain control Supervisory-Addendum Brief Verification & Attestation Participated in pt care: history, MDM, physical Personally performed: exam, history, MDM, supervision of care Care discussed with: Medical Student Procedures: n/a Results interpretation: Verified all documentation Verification and Attestation of Medical Student E/M Service A medical student performed and documented this service in my presence. I reviewed and verified all information documented by the medical student and made modifications to such information, when appropriate. I personally performed the physical exam and medical decision making. Shawna Powers, Mar 11, 2021,05:19 MAYELIN LERNER Mar 10, 2021 16:14 SHAWNA POWERS DO Mar 11, 2021 05:20
[2021-03-10 16:17] VITALS: BP 120/76
[2021-03-10] MEDS ORDERED: CALCIUM CARBONATE 500 MG (TUMS) TAB.CHEW PO PRN (16:30)
[2021-03-10 20:00] VITALS: BP 125/76
[2021-03-10] MEDS: FAMOTIDINE 20 MG (PEPCID) TABLET PO SCH (20:52)
[2021-03-10] MEDS: APIXABAN 5 MG (ELIQUIS) TABLET PO SCH (20:53)
[2021-03-10] MEDS ORDERED: TOPIRAMATE 150 MG PO SCH (21:00)
[2021-03-10] MEDS ORDERED: NON-FORMULARY MEDICATION 1 EA EA (Tizanidine HCl 6 MG) PO SCH (21:00)
[2021-03-10] MEDS ORDERED: PREGABALIN 75 MG (LYRICA) CAP PO SCH (21:00)
[2021-03-11] VITALS: BP 118/70
[2021-03-11] MEDS: oxyCODONE/APAP 5/325MG (PERCOCET 5) TABLET PO SCH ×7 (00:48→23:59)
[2021-03-11] MEDS: fentaNYL INJ 100 MCG/2 ML AMP IV PRN (01:58)
[2021-03-11 03:00] VITALS: BP 124/72
[2021-03-11] MEDS: MEROPENEM 1,000 MG/SWFI 20 ML IV PUSH IV SCH ×6 (03:51→20:28)
[2021-03-11 06:25] LABS: BASOPHILS % (AUTO) 0 % (0-10); HEMATOCRIT 28 % (35-52); MEAN CORPUSCULAR VOLUME 71 fL (80-99); MONOCYTES # (AUTO) 0.5 10^3/uL (0.0-1.0)
[2021-03-11 06:27] LABS: EOSINOPHILS % (AUTO) 1 % (0-10); HEMOGLOBIN 8.5 g/dL (11.5-16.0); LYMPHOCYTES # (AUTO) 0.5 10^3/uL (1.0-4.0); LYMPHOCYTES % (AUTO) 8 % (12-44); MEAN CORPUSCULAR HEMOGLOBIN 21 pg (25-34); MEAN CORPUSCULAR HGB CONC 30 g/dL (32-36); MEAN PLATELET VOLUME 11.4 fL (9.0-12.2); MONOCYTES % (AUTO) 7 % (0-12); NEUTROPHILS # (AUTO) 5.6 10^3/uL (1.8-7.8); NEUTROPHILS % (AUTO) 84 % (42-75); PLATELET COUNT 316 10^3/uL (130-400); WHITE BLOOD COUNT 6.7 10^3/uL (4.3-11.0)
[2021-03-11 06:34] LABS: ALBUMIN 2.5 GM/DL (3.2-4.5)
[2021-03-11 06:35] LABS: CALCIUM 8.3 MG/DL (8.5-10.1)
[2021-03-11 06:36] LABS: TOTAL PROTEIN 5.5 GM/DL (6.4-8.2)
[2021-03-11 06:38] LABS: BILIRUBIN,TOTAL 0.3 MG/DL (0.1-1.0)
[2021-03-11 06:40] LABS: CREATININE SERUM 0.6 MG/DL (0.60-1.30)
[2021-03-11 06:42] LABS: POTASSIUM 2.5 MMOL/L (3.6-5.0)
[2021-03-11 07:14] VITALS: BP 121/79
--- NOTE | 2021-03-11 07:24 | Progress Note - Surgery ---
OUSMANE THORPE 03/11/2124: Subjective Date Seen by a Provider: Mar 11, 2021 Time Seen by a Provider: 07:19 Subjective/Events-last exam Patient's incision site looks clean, dry, and packaged. Patient states migraine is better today and overall pain feels more controlled. Patient seems more aware this morning compared to yesterday. Patient was started on home meds yesterday. Patient did not have a bowel movement yesterday. Patient denies vomiting, abdominal pain, and fever. Patient states she still has nausea but it hasn't gotten worse or better since yesterday. Review of Systems General: No Chills Pulmonary: No Dyspnea Cardiovascular: No: Chest Pain Gastrointestinal: Nausea; No: Vomiting, Abdominal Pain Focused Exam Time of Focused Exam: 17:30 Objective Exam Vital Signs Date Time Temp Pulse Resp B/P (MAP) Pulse Ox O2 Delivery O2 Flow Rate FiO2 03/11/21 07:14 36.3 75 20 121/79 (93) 96 Room Air 03/11/21 03:00 36.1 68 20 124/72 (89) 98 Room Air 03/11/21 00:00 36.3 72 18 118/70 (86) 99 Room Air 03/10/21 20:00 97 Room Air 03/10/21 20:00 35.9 79 20 125/76 (92) 100 Room Air 03/10/21 16:17 35.6 80 20 120/76 (91) 100 Room Air 03/10/21 12:00 36.2 76 20 137/82 (100) 99 Room Air 03/10/21 08:00 97 Room Air 03/10/21 08:00 35.6 72 18 136/84 (101) 98 Room Air I & O 03/11/21 07:00 Intake Total 5920 ml Output Total 3375 ml Balance 2545 ml Capillary Refill : Less Than 3 Seconds General Appearance: No Apparent Distress, WD/WN, Anxious, Chronically ill, Obese HEENT: PERRL/EOMI Neck: Full Range of Motion, Normal Inspection, Supple Respiratory: Lungs Clear, Normal Breath Sounds, No Accessory Muscle Use, No Respiratory Distress Cardiovascular: Regular Rate, Rhythm, Normal Peripheral Pulses Gastrointestinal: normal bowel sounds, non tender, soft Extremity: Normal Capillary Refill, Normal Inspection, Non Tender, No Calf Tenderness, No Pedal Edema Neurologic/Psychiatric: Alert, Depressed Affect Skin: Normal Color, Warm/Dry, Tattoos/Piercings Lymphatic: No Adenopathy Results Lab Laboratory Tests 03/11/21 06:11: White Blood Count 6.7, Red Blood Count 4.03, Hemoglobin 8.5L, Hematocrit 28L, Mean Corpuscular Volume 71L, Mean Corpuscular Hemoglobin 21L, Mean Corpuscular Hemoglobin Concent 30L, Red Cell Distribution Width 20.4H, Platelet Count 316, Mean Platelet Volume 11.4, Immature Granulocyte % (Auto) 1, Neutrophils (%) (Auto) 84H, Lymphocytes (%) (Auto) 8L, Monocytes (%) (Auto) 7, Eosinophils (%) (Auto) 1, Basophils (%) (Auto) 0, Neutrophils # (Auto) 5.6, Lymphocytes # (Auto) 0.5L, Monocytes # (Auto) 0.5, Eosinophils # (Auto) 0.0, Basophils # (Auto) 0.0, Immature Granulocyte # (Auto) 0.0, Percent Immature Platelet Fraction 7.8H, Sodium Level 134L, Potassium Level 2.5*L, Chloride Level 107, Carbon Dioxide Level 18L, Anion Gap 9, Blood Urea Nitrogen 6L, Creatinine 0.60, Estimat Glomerular Filtration Rate 107, BUN/Creatinine Ratio 10, Glucose Level 146H, Calcium Level 8.3L, Corrected Calcium 9.5, Total Bilirubin 0.3, Aspartate Amino Transf (AST/SGOT) 119H, Alanine Aminotransferase (ALT/SGPT) 105H, Alkaline Phosphatase 195H, Total Protein 5.5L, Albumin 2.5L Microbiology 03/09/21 Gram Stain - Final, Resulted 03/09/21 Anaerobic Culture, Resulted Pending 03/09/21 Surgical Culture - Preliminary, Resulted Staphylococcus aureus 03/08/21 MRSA Screen - Final, Complete MRSA not isolated 03/08/21 Gram Stain - Final, Resulted 03/08/21 Wound Culture - Preliminary, Resulted Staphylococcus aureus 03/08/21 Blood Culture - Preliminary, Resulted No growth 03/07/21 Urine Culture - Final, Complete Staphylococcus haemolyticus Assessment/Plan Assessment/Plan Assessment/Plan Sepsis Glioblastoma Fever unknown origin Long-term anticoagulation Morbid obesity Migraine s/p port removal Continue antibiotics - make appropriate changes pending micro Pain control Continue medical management IS and SCDs Up and ambulating when possible wound care FRANCINE MCLEAN DO 03/11/212136: Subjective Subjective/Events-last exam Patient incision clean dry and no drainage. Patient currently states that she is starting to feel a little bit better today. Patient has had a little bit of nausea at times. She is tolerating diet. Patient has not had any vomiting abdominal pain or fever today. Objective Exam General Appearance: No Apparent Distress, WD/WN Neck: Normal Inspection, Non Tender Respiratory: Chest Non Tender, No Accessory Muscle Use, No Respiratory Distress Cardiovascular: Regular Rate, Rhythm, No JVD Gastrointestinal: non tender, soft Extremity: Normal Inspection, Non Tender, No Calf Tenderness Neurologic/Psychiatric: Alert, Oriented x3, Depressed Affect Skin: Normal Color, Warm/Dry, Other (Open wound right chest appears to be clean and dry no purulent drainag) Lymphatic: No Adenopathy Assessment/Plan Assessment/Plan Assessment/Plan Sepsis Glioblastoma Fever unknown origin Long-term anticoagulation Morbid obesity Migraine s/p port removal Continue antibiotics Pain control Continue medical management IS and SCDs Up and ambulating when possible wound care Supervisory-Addendum Brief Verification & Attestation Participated in pt care: history, MDM, physical Personally performed: exam, history, MDM, supervision of care Care discussed with: Medical Student Procedures: n/a Results interpretation: Verified all documentation Verification and Attestation of Medical Student E/M Service A medical student performed and documented this service in my presence. I reviewed and verified all information documented by the medical student and made modifications to such information, when appropriate. I personally performed the physical exam and medical decision making. Francine Mclean, Mar 11, 2021,21:35 OUSMANE THORPE Mar 11, 2021 07:24 FRANCINE MCLEAN DO Mar 11, 2021 21:37
[2021-03-11] MEDS ORDERED: NS IV 500 ML 500 ML IV SCH (08:00)
[2021-03-11] MEDS: toPIRamate 25 MG (TOPAMAX) TAB PO SCH ×2 (08:40→20:28)
[2021-03-11] MEDS: FOLIC ACID 1 MG TAB PO SCH (08:40)
[2021-03-11] MEDS: PANTOPRAZOLE 40 MG (PROTONIX) TAB PO SCH ×2 (08:40→08:41)
[2021-03-11] MEDS: FLUoxetine HCL 20 MG (PROzac) CAP PO SCH (08:40)
[2021-03-11] MEDS: FAMOTIDINE 20 MG (PEPCID) TABLET PO SCH ×2 (08:40→20:29)
[2021-03-11] MEDS: toPIRamate 100 MG (TOPAMAX) TAB PO SCH ×2 (08:40→20:28)
[2021-03-11] MEDS: APIXABAN 5 MG (ELIQUIS) TABLET PO SCH ×2 (08:41→20:29)
[2021-03-11] MEDS: PREGABALIN 150 MG (LYRICA) CAPSULE PO SCH ×2 (08:48→20:28)
[2021-03-11] MEDS: POTASSIUM CL 10MEQ/50ML IVPB 50 ML IV SCH ×4 (08:49→11:22)
[2021-03-11] MEDS ORDERED: FLUTICASONE/VILANTEROL 200 MCG 14'S (BREO) IH SCH (09:00)
[2021-03-11] MEDS ORDERED: PROPRANOLOL LA 120 MG (INDERAL LA) CAP NON-FORMULARY PO SCH (09:00)
[2021-03-11] MEDS ORDERED: NON-FORMULARY MEDICATION 1 EA EA (Fluoxetine HCl 40 MG) PO SCH (09:00)
--- NOTE | 2021-03-11 09:22 | Physical Therapy Daily Note ---
PT Daily Note-Current Subjective Patient reluctantly agrees to PT. C/o 10/10 total body pain Pain Numeric Pain Scale: 10-Worst Possible Pain Location: Soft Tissue Location Body Site: Generalized Pain Description: Ache Mental Status Patient Orientation: Confused Attachments: [place] Catheter Transfers SCALE: Activities may be completed with or without assistive devices. 2-Zwsvjgbgie-aewhcki completes the activity by him/herself with no assistance from a helper. 5-Set-up or Clean-up Assistance-helper sets up or cleans up; patient completes activity. [place] assists only prior to or following the activity. 4-Supervision or Touching Assistance-helper provides verbal cues and/or touching/steadying and/or contact guard assistance as patient completes activity. Assistance may be provided throughout the activity or intermittently. 3-Partial/Moderate Assistance-helper does LESS THAN HALF the effort. [place] lifts, holds or supports trunk or limbs, but provides less than half the effort. 2-Substantial/Maximal Assistance-helper does MORE THAN HALF the effort. [place] lifts or holds trunk or limbs and provides more than half the effort. 7-Ekiovpxwy-qpfjnn does ALL the effort. Patient does none of the effort to complete the activity. Or, the assistance of 2 or more helpers is required for the patient to complete the activity. If activity was not attempted, code reason: 7-Patient Refused. 9-Not Applicable-not attempted and the patient did not perform the activity before the current illness, exacerbation or injury. 10-Not Attempted due to Environmental Limitations-(lack of equipment, weather restraints, etc.). 88-Not Attempted due to Medical Conditions or Safety Concerns. Lying to Sitting/Side of Bed(Q: 2 Sit to Stand (QC): 4 Chair/Qgm-nb-Slvfx Xfer(QC): 4 Gait Training Distance: 5' and would not walk farther Walk 10 feet (QC): 7 Walk 50 ft with 2 Turns(QC): 7 Gait Assistive Device: FWW Exercises Seated Therapy Exercises: Ankle pumps, Long arc quads Seated Reps: 15 Assessment Patient requires time to complete all functional tasks and is up in recliner with needs met. Increase activity as allowed and tolerated by patient. PT Senior Care Goals Gm Video Goals PT Gm Video Goals Time Frame: Mar 22, 2021 Roll Left & Right (QC): 6 Sit to Lying (QC): 6 Lying-Sitting on Side/Bed(QC): 6 Sit to Stand (QC): 6 Chair/Isl-tb-Wxers Xfer(QC): 6 Toilet Transfer (QC): 6 Does the Patient Walk: Yes Walk 10 feet (QC): 6 Walk 50ft with 2 Turns (QC): 6 Walk 150 ft (QC): 6 PT Plan Treatment/Plan Treatment Plan: Continue Plan of Care Treatment Plan: Bed Mobility, Education, Functional Activity Michael, Functional Strength, Gait, Safety, Therapeutic Exercise, Transfers Treatment Duration: Mar 22, 2021 Frequency: 6 times per week Estimated Hrs Per Day: .25 hour per day Patient and/or Family Agrees t: Yes Time/GCodes Time In: 815 Time Out: 833 Total Billed Treatment Time: 18 Total Billed Treatment 1 visit FA 18 min JOSUE PERALTA PT Mar 11, 2021 09:22
--- NOTE | 2021-03-11 12:04 | Progress Note - Hospitalist ---
MAYELIN LERNER 03/11/21 1204: Subjective HPI/CC On Admission Date Seen by Provider: Mar 11, 2021 Time Seen by Provider: 09:00 This 50-year-old woman presents to the emergency room with complaints of fever, confusion, and diffuse aches. She recently finished a round of chemotherapy for a brain tumor. She underwent surgical resection as well. She reports suspicion of infection at her port site about a week ago. Antibiotics were prescribed but she has not received them yet. She has been Covid vaccinated. Temperature is currently 100.8. She has experienced some nausea and EMS gave Zofran in route. Upon my arrival the patient was able to answer questions knew that she was in the hospital appeared to be in pain wincing at times thought it was her chest but she was very unclear and could not localize any discomfort. She thought that her port might be infected because she had a little bit of oozing at one of the incision sites last week apparently according to her she thought it was put in about 3 weeks ago she reports minimal discomfort to the site currently. She been feeling fatigued and feeling feverish with chills at home. She voiced no other complaints with negative review of systems. As she was Covid negative via PCR. Subjective/Events-last exam Pt reports condition and pain worsening. Pt complains of cough, neasuea, fatigue. Denies fever, chills, vomiting, diarrhea, or chest pain. Last bowel movement yesterday. Was able to get in a chair today. Review of Systems General: No Chills; Night Sweats, Fatigue, Appetite HEENT: No Head Aches, No Visual Changes Pulmonary: Cough Cardiovascular: No: Chest Pain, Palpitations, Edema Gastrointestinal: Nausea, Abdominal Pain (R sided); No: Vomiting, Diarrhea Genitourinary: No Dysuria, No Frequency, No Incontinence Neurological: No: Weakness, Numbness, Seizures Focused Exam Time of Focused Exam: 17:30 Objective Exam Vital Signs Vital Signs Date Time Temp Pulse Resp B/P (MAP) Pulse Ox O2 Delivery O2 Flow Rate FiO2 03/11/21 08:00 97 Room Air 03/11/21 07:14 36.3 75 20 121/79 (93) 03/09/21 10:09 10 Capillary Refill : Less Than 3 Seconds General Appearance: Mild Distress, Obese HEENT: PERRL/EOMI Neck: Full Range of Motion, Non Tender, Supple Respiratory: Chest Non Tender, Decreased Breath Sounds Cardiovascular: Regular Rate, Rhythm, No Murmur Gastrointestinal: Soft, Tenderness Extremity: Normal Inspection, Non Tender, No Calf Tenderness, No Pedal Edema Neurologic/Psychiatric: Alert, Oriented x3 Skin: Normal Color, Warm/Dry, Tattoos/Piercings Results/Procedures Lab Laboratory Tests 03/11/21 06:11 Patient resulted labs reviewed. Assessment/Plan Assessment and Plan Assess & Plan/Chief Complaint Sepsis of unknown etiology Port site/Blood cultures preliminary growth for Staph Aureus Continue Vancomycin Urine preliminary growth Staph Haemolyticus Surgery consult Continue to monitor incision/wound care Immunocompromise from Chemotherapy of Glioblastoma Multiforme Fdc Anticoag (Eliquis) Hold until surgery consult Morbid Obesity s/p Port removal PT/OT SHAWNA POWERS DO 03/12/21 0606: Subjective Subjective/Events-last exam Pt did pretty well through the night Managing right port removal and infection Says she feels worse but she reports many somatic complaints Potassium 2.5 giving 40 mEq IV AST and ALT are slightly elevated likely due to fatty liver and recent chemotherapy Review of Systems General: Fatigue Objective Exam General Appearance: No Apparent Distress, WD/WN, Obese Respiratory: No Accessory Muscle Use, No Respiratory Distress, Decreased Breath Sounds Cardiovascular: Regular Rate, Rhythm Assessment/Plan Assessment and Plan Assess & Plan/Chief Complaint Somatic complaints Supportive care IV antibiotics Supervisory-Addendum Brief Verification & Attestation Participated in pt care: history, MDM, physical Personally performed: exam, history, MDM, supervision of care Care discussed with: Medical Student Procedures: n/a Results interpretation: Verified all documentation Verification and Attestation of Medical Student E/M Service A medical student performed and documented this service in my presence. I reviewed and verified all information documented by the medical student and made modifications to such information, when appropriate. I personally performed the physical exam and medical decision making. Shawna Powers, Mar 12, 2021,06:05 MAYELIN LERNER Mar 11, 2021 12:04 SHAWNA POWERS DO Mar 12, 2021 06:06
[2021-03-11 12:06] VITALS: BP 107/60
--- NOTE | 2021-03-11 13:31 | Occupational Ther Daily Note ---
OT Current Status-Daily Note Subjective Pt. does not report pain but reluctant to work with OT. Mental Status/Objective Patient Orientation: Unable to Assess ADL-Treatment Therapy Code Descriptions/Definitions Functional [place] Measure: 0=Not Assessed/NA 4=Minimal Assistance 1=Total Assistance 5=Supervision or Setup 2=Maximal Assistance 6=Modified [place] 3=Moderate Assistance 7=Complete IndependenceSCALE: Activities may be completed with or without assistive devices. 9-Ldqnhtaxif-jdqnghv completes the activity by him/herself with no assistance from a helper. 5-Set-up or Clean-up Assistance-helper sets up or cleans up; patient completes activity. [place] assists only prior to or following the activity. 4-Supervision or Touching Assistance-helper provides verbal cues and/or touching/steadying and/or contact guard assistance as patient completes activity. Assistance may be provided throughout the activity or intermittently. 3-Partial/Moderate Assistance-helper does LESS THAN HALF the effort. [place] lifts, holds or supports trunk or limbs, but provides less than half the effort. 2-Substantial/Maximal Assistance-helper does MORE THAN HALF the effort. [place] lifts or holds trunk or limbs and provides more than half the effort. 8-Ubeovelen-vvisde does ALL the effort. Patient does none of the effort to complete the activity. Or, the assistance of 2 or more helpers is required for the patient to complete the activity. If activity was not attempted, code reason: 7-Patient Refused. 9-Not Applicable-not attempted and the patient did not perform the activity before the current illness, exacerbation or injury. 10-Not Attempted due to Environmental Limitations-(lack of equipment, weather restraints, etc.). 88-Not Attempted due to Medical Conditions or Safety Concerns. Shower/Bathe Self (QC): 2 (Max assist overall. Please see note below.) On/Off Footwear: 2 (Max assist with slipper socks.) Other Treatment Pt. in bed with covers pulled up to neck. She awakens, and reluctantly agrees to get cleaned up. OT brings in clean gown, towels, and warm bath pack/clean socks. Pt. given time to attempt supine-sit for herself. Pt. able to move mcfp to edge of bed, but requires mod assist to move the rest of way and min assist to balance self on side. Pt. able to wash chest, under breasts, face, and part of arms. OT washes all other parts in supine. Pt. able to transfer sit-supine with min assist and increased time. Declines attempting to stand. Pt. also declines attempting to doff/don fresh socks, and so OT does this for her. Pt. back in bed at end of session. All needs met. Education OT Patient Education: Correct positioning, Modified ADL techniques, Progress toward Goal/Update tx plan, Purpose of tx/functional activities, Reviewed precautions, Rehab process, Transfer techniques Teaching Recipient: Patient Teaching Methods: Demonstration, Discussion Response to Teaching: Reinforcement Needed OT Short Term Goals Short Term Goals Time Frame: Mar 17, 2021 Eatin Oral hygiene: 4 Toileting hygiene: 4 Shower/bathe self: 3 Upper body dressin Lower body dressin Putting on/taking off footwear: 4 OT Jail Goals Jail Goals Time Frame: Mar 24, 2021 Eating (QC): 6 Oral Hygiene (QC): 6 Toileting Hygiene (QC): 6 Shower/Bathe Self (QC): 4 Upper Body Dressing (QC): 5 Lower Body Dressing (QC): 4 On/Off Footwear (QC): 4 Additional Goals: 1-Demonstrate ADL Tasks, 2-Verbalize Understanding, 3- ImproveStrength/Michael 1=Demonstrate adherence to instructed precautions during ADL tasks. 2=Patient will verbalize/demonstrate understanding of assistive devices/modifications for ADL. 3=Patient will improve strength/tolerance for activity to enable patient to perform ADL's. OT Education/Plan Problem List/Assessment Assessment: Decreased Activ Tolerance, Dependent Transfers, Impaired Bed Mobility, Impaired Funct Balance, Impaired I ADL's, Impaired Self-Care Skills Discharge Recommendations Plan/Recommendations: Continue POC Therapy Discharge Recommendati: Post Acute OT Treatment Plan/Plan of Care Treatment,Training & Education: Yes Patient would benefit from OT for education, treatment and training to promote independence in ADL's, mobility, safety and/or upper extremity function for ADL's. Plan of Care: ADL Retraining, Functional Mobility, UE Funct Exercise/Act Treatment Duration: Mar 24, 2021 Frequency: 5 times per week Estimated Hrs Per Day: .25 hour per day Agreement: Yes Rehab Potential: Fair Time/GCodes Start Time: 11:40 Stop Time: 12:00 Total Time Billed (hr/min): 20 Billed Treatment Time 1, ADL SHARI GRANDA OT Mar 11, 2021 13:31
[2021-03-11] MEDS ORDERED: PATIENT MAY USE OWN MEDS, ALL MC SCH (14:45)
[2021-03-11] MEDS ORDERED: [UNRECOGNIZED DRUG - REMARK] PO PRN (15:00)
[2021-03-11 16:00] VITALS: BP 139/85
[2021-03-11 19:39] VITALS: BP 145/79
[2021-03-12] VITALS (7 sets, daily range): BP systolic 110–142; BP diastolic 55–79
[2021-03-12] MEDS: oxyCODONE/APAP 5/325MG (PERCOCET 5) TABLET PO SCH ×7 (04:05→23:29)
[2021-03-12] MEDS: MEROPENEM 1,000 MG/SWFI 20 ML IV PUSH IV SCH ×2 (04:05)
[2021-03-12 05:18] LABS: BASOPHILS % (AUTO) 0 % (0-10); EOSINOPHILS # (AUTO) 0.1 10^3/uL (0.0-0.3); EOSINOPHILS % (AUTO) 1 % (0-10); HEMATOCRIT 30 % (35-52); HEMOGLOBIN 8.7 g/dL (11.5-16.0); LYMPHOCYTES # (AUTO) 0.6 10^3/uL (1.0-4.0); LYMPHOCYTES % (AUTO) 9 % (12-44); MEAN CORPUSCULAR HEMOGLOBIN 21 pg (25-34); MEAN CORPUSCULAR HGB CONC 29 g/dL (32-36); MEAN CORPUSCULAR VOLUME 71 fL (80-99); MEAN PLATELET VOLUME 11.4 fL (9.0-12.2); MONOCYTES # (AUTO) 0.4 10^3/uL (0.0-1.0); MONOCYTES % (AUTO) 7 % (0-12); NEUTROPHILS # (AUTO) 5.4 10^3/uL (1.8-7.8); NEUTROPHILS % (AUTO) 82 % (42-75); PLATELET COUNT 363 10^3/uL (130-400); WHITE BLOOD COUNT 6.6 10^3/uL (4.3-11.0)
[2021-03-12 05:34] LABS: ALBUMIN 2.6 GM/DL (3.2-4.5); POTASSIUM 2.7 MMOL/L (3.6-5.0)
[2021-03-12 05:35] LABS: CALCIUM 8.4 MG/DL (8.5-10.1)
[2021-03-12 05:36] LABS: TOTAL PROTEIN 5.6 GM/DL (6.4-8.2)
[2021-03-12 05:38] LABS: BILIRUBIN,TOTAL 0.3 MG/DL (0.1-1.0)
[2021-03-12 05:40] LABS: CREATININE SERUM 0.6 MG/DL (0.60-1.30)
--- NOTE | 2021-03-12 07:42 | Progress Note - Surgery ---
OUSMANE THORPE 03/12/21 0742: Subjective Date Seen by a Provider: Mar 12, 2021 Time Seen by a Provider: 07:38 Subjective/Events-last exam Patients wound is clean, dry, and bandaged. Patient states she is feeling better today with more energy. Patient started having bowel movements yesterday. Melissa delgadillo had elias cath removed. Patient denies N/V, abdominal pain, dysuria, fever, chills, and TOMPKINS. Review of Systems General: No Chills, No Night Sweats HEENT: No Head Aches, No Visual Changes Pulmonary: No Dyspnea Cardiovascular: No: Chest Pain, Palpitations Gastrointestinal: No: Nausea, Vomiting, Abdominal Pain Genitourinary: No Dysuria, No Incontinence Focused Exam Time of Focused Exam: 17:30 Objective Exam Vital Signs Date Time Temp Pulse Resp B/P (MAP) Pulse Ox O2 Delivery O2 Flow Rate FiO2 03/12/21 04:00 35.4 84 18 118/60 (79) 98 Room Air 03/12/21 00:10 35.9 86 20 125/70 (88) 98 Room Air 03/11/21 20:00 Room Air 03/11/21 19:39 36.2 78 20 145/79 (101) 97 Room Air 03/11/21 16:00 37.2 82 18 139/85 (103) 100 Room Air 03/11/21 12:06 35.6 83 20 107/60 (76) 97 Room Air 03/11/21 08:00 97 Room Air 03/11/21 07:59 Room Air I & O 03/12/21 07:00 Intake Total 4160 ml Output Total 1600 ml Balance 2560 ml Capillary Refill : Less Than 3 Seconds General Appearance: No Apparent Distress, WD/WN, Obese HEENT: PERRL/EOMI Neck: Normal Inspection, Non Tender Respiratory: Lungs Clear, Normal Breath Sounds, No Accessory Muscle Use, No Respiratory Distress, Decreased Breath Sounds Cardiovascular: Regular Rate, Rhythm, Normal Peripheral Pulses Gastrointestinal: non tender, soft Extremity: Non Tender, No Calf Tenderness, No Pedal Edema Neurologic/Psychiatric: Alert, Oriented x3, Depressed Affect Skin: Normal Color, Warm/Dry, Other (Open wound right chest appears to be clean and dry no purulent drainag) Lymphatic: No Adenopathy Results Lab Laboratory Tests 03/12/21 04:57: White Blood Count 6.6, Red Blood Count 4.18, Hemoglobin 8.7L, Hematocrit 30L, Mean Corpuscular Volume 71L, Mean Corpuscular Hemoglobin 21L, Mean Corpuscular Hemoglobin Concent 29L, Red Cell Distribution Width 20.7H, Platelet Count 363, Mean Platelet Volume 11.4, Immature Granulocyte % (Auto) 1, Neutrophils (%) (Auto) 82H, Lymphocytes (%) (Auto) 9L, Monocytes (%) (Auto) 7, Eosinophils (%) (Auto) 1, Basophils (%) (Auto) 0, Neutrophils # (Auto) 5.4, Lymphocytes # (Auto) 0.6L, Monocytes # (Auto) 0.4, Eosinophils # (Auto) 0.1, Basophils # (Auto) 0.0, Immature Granulocyte # (Auto) 0.1, Sodium Level 136, Potassium Level 2.7L, Chloride Level 106, Carbon Dioxide Level 20L, Anion Gap 10, Blood Urea Nitrogen 7, Creatinine 0.60, Estimat Glomerular Filtration Rate 107, BUN/Creatinine Ratio 12, Glucose Level 121H, Calcium Level 8.4L, Corrected Calcium 9.5, Total Bilirubin 0.3, Aspartate Amino Transf (AST/SGOT) 42H, Alanine Aminotransferase (ALT/SGPT) 72H, Alkaline Phosphatase 172H, Total Protein 5.6L, Albumin 2.6L Microbiology 03/09/21 Gram Stain - Final, Resulted 03/09/21 Anaerobic Culture - Preliminary, Resulted No anaerobes isolated 03/09/21 Surgical Culture - Preliminary, Resulted Staphylococcus aureus 03/08/21 MRSA Screen - Final, Complete MRSA not isolated 03/08/21 Gram Stain - Final, Complete 03/08/21 Wound Culture - Final, Complete Staphylococcus aureus 03/08/21 Blood Culture - Preliminary, Resulted No growth 03/07/21 Urine Culture - Final, Complete Staphylococcus haemolyticus Assessment/Plan Assessment/Plan Assessment/Plan Sepsis Glioblastoma Fever unknown origin Long-term anticoagulation Morbid obesity Migraine s/p port removal Continue antibiotics Pain control Continue medical management IS and SCDs Up and ambulating when possible wound care FRANCINE RUSHING DO 03/12/21 1300: Subjective Subjective/Events-last exam Feeling better. More energy today. +bowel function. Denies any new comlaints. Denies n/v fever sweats chills shortness of breath or chest pain. Objective Exam General Appearance: No Apparent Distress, Obese HEENT: PERRL/EOMI Neck: Normal Inspection, Non Tender Respiratory: Chest Non Tender, No Accessory Muscle Use, No Respiratory Distress, Decreased Breath Sounds Cardiovascular: Regular Rate, Rhythm, No JVD Gastrointestinal: non tender, soft Extremity: Non Tender, No Calf Tenderness, No Pedal Edema Neurologic/Psychiatric: Alert, Oriented x3, Depressed Affect Skin: Normal Color, Warm/Dry, Other (Open wound right chest clean and dry no purulent drainag) Lymphatic: No Adenopathy Assessment/Plan Assessment/Plan Assessment/Plan Sepsis Glioblastoma Fever unknown origin Long-term anticoagulation Morbid obesity Migraine s/p port removal Continue antibiotics - convert to oral per sensitivities Pain control Continue medical management IS and SCDs Up and ambulating when possible wound care irrigate and pack with iodoform till heals in will sign off, call if needed. Supervisory-Addendum Brief Verification & Attestation Participated in pt care: history, MDM, physical Personally performed: exam, history, MDM, supervision of care Care discussed with: Medical Student Procedures: n/a Results interpretation: Verified all documentation Verification and Attestation of Medical Student E/M Service A medical student performed and documented this service in my presence. I reviewed and verified all information documented by the medical student and made modifications to such information, when appropriate. I personally performed the physical exam and medical decision making. Francine Rushing, Mar 12, 2021,13:00 OUSMANE THORPE Mar 12, 2021 07:42 FRANCINE RUSHING DO Mar 12, 2021 13:00
[2021-03-12] MEDS: PANTOPRAZOLE 40 MG (PROTONIX) TAB PO SCH ×2 (08:00→08:08)
[2021-03-12] MEDS: APIXABAN 5 MG (ELIQUIS) TABLET PO SCH ×2 (08:07→20:21)
[2021-03-12] MEDS: toPIRamate 25 MG (TOPAMAX) TAB PO SCH ×2 (08:07→20:21)
[2021-03-12] MEDS: FLUoxetine HCL 20 MG (PROzac) CAP PO SCH (08:07)
[2021-03-12] MEDS: PREGABALIN 150 MG (LYRICA) CAPSULE PO SCH ×2 (08:07→20:21)
[2021-03-12] MEDS: toPIRamate 100 MG (TOPAMAX) TAB PO SCH ×2 (08:07→20:21)
[2021-03-12] MEDS: FOLIC ACID 1 MG TAB PO SCH (08:08)
[2021-03-12] MEDS: FAMOTIDINE 20 MG (PEPCID) TABLET PO SCH ×2 (08:08→20:21)
[2021-03-12] MEDS ORDERED: ERENUMAB AOOE INJ SCH (09:00)
--- NOTE | 2021-03-12 09:10 | Physical Therapy Daily Note ---
PT Daily Note-Current Subjective Pt in bed upon arrival. Pt states pain in lower back/upper thigh at 8/10. Pt reluctant to PT but agrees. Pain Numeric Pain Scale: 8 Location: Lower Location Body Site: Back Pain Description: Ache Mental Status Patient Orientation: Person, Place Transfers SCALE: Activities may be completed with or without assistive devices. 6-Sirxalfxut-muetfgr completes the activity by him/herself with no assistance from a helper. 5-Set-up or Clean-up Assistance-helper sets up or cleans up; patient completes activity. [place] assists only prior to or following the activity. 4-Supervision or Touching Assistance-helper provides verbal cues and/or touching/steadying and/or contact guard assistance as patient completes activity. Assistance may be provided throughout the activity or intermittently. 3-Partial/Moderate Assistance-helper does LESS THAN HALF the effort. [place] lifts, holds or supports trunk or limbs, but provides less than half the effort. 2-Substantial/Maximal Assistance-helper does MORE THAN HALF the effort. [place] lifts or holds trunk or limbs and provides more than half the effort. 2-Eifywftsd-hvqxxq does ALL the effort. Patient does none of the effort to complete the activity. Or, the assistance of 2 or more helpers is required for the patient to complete the activity. If activity was not attempted, code reason: 7-Patient Refused. 9-Not Applicable-not attempted and the patient did not perform the activity before the current illness, exacerbation or injury. 10-Not Attempted due to Environmental Limitations-(lack of equipment, weather restraints, etc.). 88-Not Attempted due to Medical Conditions or Safety Concerns. Roll Left & Right (QC): 4 Sit to Lying (QC): 4 Lying to Sitting/Side of Bed(Q: 3 Sit to Stand (QC): 3 Toilet Transfer (QC): 3 Gait Training Does the Patient Walk?: Yes Distance: 30' Walk 10 feet (QC): 3 Gait Assistive Device: FWW Pt has slow, shuffling gait with kyphotic posture requiring ModA and VC. Wheelchair Training Does the Pt Use a Wheelchair?: No Treatments Pt perform lying to sitting EOB requiring multiple VC. Pt sit to stand ModA, and amb to bathroom. Pt doffs brief as PT A pt with standing balance. Pt uses restroom and changes clothes requiring Evelyn for top and MaxA for socks. Pt sit to stand ModA requiring VC to lean forward and push up from handrail. Pt amb back to bed, sits EOB to supine. Pt in bed with all needs met, call light in hand. Assessment Current Status: Good Progress Pt limited by pain and easily fatiguing. Pt shows overall weakness. PT Longterm Goals Longterm Goals PT Director Sales Support Goals Time Frame: Mar 22, 2021 Roll Left & Right (QC): 6 Sit to Lying (QC): 6 Lying-Sitting on Side/Bed(QC): 6 Sit to Stand (QC): 6 Chair/Wdc-wr-Lvgwc Xfer(QC): 6 Toilet Transfer (QC): 6 Does the Patient Walk: Yes Walk 10 feet (QC): 6 Walk 50ft with 2 Turns (QC): 6 Walk 150 ft (QC): 6 PT Plan Problem List Problem List: Activity Tolerance, Functional Strength Treatment/Plan Treatment Plan: Continue Plan of Care Treatment Plan: Bed Mobility, Education, Functional Activity Michael, Functional Strength, Gait, Safety, Therapeutic Exercise, Transfers Treatment Duration: Mar 22, 2021 Frequency: 6 times per week Estimated Hrs Per Day: .25 hour per day Patient and/or Family Agrees t: Yes Safety Risks/Education Patient Education: Gait Training, Correct Positioning Teaching Recipient: Patient Teaching Methods: Discussion Response to Teaching: Verbalize Understanding Time/GCodes Time In: 832 Time Out: 851 Total Billed Treatment Time: 19 Total Billed Treatment Aranza BAM CULLEN BAEZ PHOTOGRAPHY COORDINATOR Mar 12, 2021 09:10
[2021-03-12] MEDS ORDERED: NS 100 ML (IVPB) BAG IV ONE (10:30)
[2021-03-12] MEDS ORDERED: MAGNESIUM OXIDE (MAG-OX)400 MG TAB PO ONE (10:45)
[2021-03-12] MEDS ORDERED: NS IV 500 ML 500 ML IV SCH (11:00)
[2021-03-12] MEDS: POTASSIUM CL 10MEQ/50ML IVPB 50 ML IV SCH ×2 (11:11→12:48)
[2021-03-12] MEDS: cefTRIAXone 2,000 MG/SWFI 20 ML IV PUSH IV SCH ×2 (11:13)
--- NOTE | 2021-03-12 11:33 | Progress Note - Hospitalist ---
RAJINDER HOLMAN MED STUDENT 03/12/21 1133: Subjective HPI/CC On Admission Date Seen by Provider: Mar 12, 2021 Time Seen by Provider: 07:00 This 50-year-old woman presents to the emergency room with complaints of fever, confusion, and diffuse aches. She recently finished a round of chemotherapy for a brain tumor. She underwent surgical resection as well. She reports suspicion of infection at her port site about a week ago. Antibiotics were prescribed but she has not received them yet. She has been Covid vaccinated. Temperature is currently 100.8. She has experienced some nausea and EMS gave Zofran in route. Upon my arrival the patient was able to answer questions knew that she was in the hospital appeared to be in pain wincing at times thought it was her chest but she was very unclear and could not localize any discomfort. She thought that her port might be infected because she had a little bit of oozing at one of the incision sites last week apparently according to her she thought it was put in about 3 weeks ago she reports minimal discomfort to the site currently. She been feeling fatigued and feeling feverish with chills at home. She voiced no other complaints with negative review of systems. As she was Covid negative via PCR. Subjective/Events-last exam Reports feeling nauseated. Reports pain "all over from the sepsis." Tolerating po intake well. Denies urinary or bowel complaints. Denies chest pain or SOB. Review of Systems General: No Chills, No Night Sweats HEENT: No Head Aches, No Visual Changes Pulmonary: No Dyspnea, No Cough Cardiovascular: No: Chest Pain, Palpitations Gastrointestinal: Nausea; No: Vomiting, Abdominal Pain Genitourinary: No Dysuria, No Frequency Musculoskeletal: other (generalized myalgias) Neurological: No: Weakness, Numbness, Change in speech, Confusion Focused Exam Time of Focused Exam: 17:30 Objective Exam Vital Signs Vital Signs Date Time Temp Pulse Resp B/P (MAP) Pulse Ox O2 Delivery O2 Flow Rate FiO2 03/12/21 08:24 98 Room Air 03/12/21 08:00 35.0 100 18 125/70 (88) 03/09/21 10:09 10 Capillary Refill : Less Than 3 Seconds General Appearance: No Apparent Distress, Obese HEENT: PERRL/EOMI, Moist Mucous Membranes Neck: Normal Inspection, Non Tender Respiratory: Chest Non Tender, No Accessory Muscle Use, No Respiratory Distres s, Decreased Breath Sounds Cardiovascular: Regular Rate, Rhythm, No Murmur, Normal Peripheral Pulses Gastrointestinal: Normal Bowel Sounds, Non Tender, Soft Rectal: Deferred Back: Normal Inspection, No Vertebral Tenderness, Other Extremity: Normal Capillary Refill, Non Tender, No Calf Tenderness Neurologic/Psychiatric: Alert, Oriented x3, No Motor/Sensory Deficits Skin: Normal Color, Warm/Dry Lymphatic: No Adenopathy Results/Procedures Lab Laboratory Tests 03/12/21 04:57 Patient resulted labs reviewed. Assessment/Plan Assessment and Plan Assess & Plan/Chief Complaint Sepsis -port suspected as source, removed 03-09 -meropenem completed -rocephin added today -no leukocytosis or fevers Glioblastoma -s/p recent chemo and surgical resection Hypokalemia -replete today Anemia -stable, continue to monitor Transaminitis -trending down, continue to follow Fever -resolved -continue to monitor Anticoagulation -eliquis Atrial fibrillation -eliquis H/O DVT -eliquis COPD -albuterol prn -02 to keep sat's >90 NIDDM -order accuchecks achs HTN -monitor Morbid obesity -encourage healthy diet SHAWNA POWERS DO 03/12/21 2146: Subjective Subjective/Events-last exam Pt doing a little better A lot of somatic complaints still On room air Pain is all over Midline will be placed for IV potassium and magnesium Potassium of 2.7 and magnesium very low at 1.3 Vancomycin completed the treatment for MSSA Goes to [facility] if she were to go home in the next day or two Review of Systems General: Fatigue Objective Exam General Appearance: No Apparent Distress, WD/WN, Chronically ill, Obese Respiratory: Lungs Clear, No Accessory Muscle Use, No Respiratory Distress, Decreased Breath Sounds Cardiovascular: Regular Rate, Rhythm Neurologic/Psychiatric: Alert, Oriented x3, Depressed Affect Assessment/Plan Assessment and Plan Assess & Plan/Chief Complaint Supportive care PT and OT Replace potassium Replace magnesium Supervisory-Addendum Brief Verification & Attestation Participated in pt care: history, MDM, physical Personally performed: exam, history, MDM, supervision of care Care discussed with: Medical Student Procedures: n/a Results interpretation: Verified all documentation Verification and Attestation of Medical Student E/M Service A medical student performed and documented this service in my presence. I revie wed and verified all information documented by the medical student and made modifications to such information, when appropriate. I personally performed the physical exam and medical decision making. Shawna Powers, Mar 12, 2021,21:45 RAJINDER HOLMAN MED STUDENT Mar 12, 2021 11:33 SHAWNA POWERS DO Mar 12, 2021 21:46
[2021-03-12] MEDS: KCL 20 MEQ TAB (K-DUR) PO SCH ×4 (12:47→20:21)
--- NOTE | 2021-03-12 13:59 | Occupational Ther Daily Note ---
OT Current Status-Daily Note Subjective Pt. reports fatigue at end of shower. Requests to lay down. Mental Status/Objective Patient Orientation: Person, Place ADL-Treatment Therapy Code Descriptions/Definitions Functional [place] Measure: 0=Not Assessed/NA 4=Minimal Assistance 1=Total Assistance 5=Supervision or Setup 2=Maximal Assistance 6=Modified [place] 3=Moderate Assistance 7=Complete IndependenceSCALE: Activities may be completed with or without assistive devices. 8-Ymecvphbhg-yirroye completes the activity by him/herself with no assistance from a helper. 5-Set-up or Clean-up Assistance-helper sets up or cleans up; patient completes activity. [place] assists only prior to or following the activity. 4-Supervision or Touching Assistance-helper provides verbal cues and/or touching/steadying and/or contact guard assistance as patient completes activity. Assistance may be provided throughout the activity or intermittently. 3-Partial/Moderate Assistance-helper does LESS THAN HALF the effort. [place] lifts, holds or supports trunk or limbs, but provides less than half the effort. 2-Substantial/Maximal Assistance-helper does MORE THAN HALF the effort. [place] lifts or holds trunk or limbs and provides more than half the effort. 3-Tdcoibzck-lakyvo does ALL the effort. Patient does none of the effort to complete the activity. Or, the assistance of 2 or more helpers is required for the patient to complete the activity. If activity was not attempted, code reason: 7-Patient Refused. 9-Not Applicable-not attempted and the patient did not perform the activity before the current illness, exacerbation or injury. 10-Not Attempted due to Environmental Limitations-(lack of equipment, weather restraints, etc.). 88-Not Attempted due to Medical Conditions or Safety Concerns. Shower/Bathe Self (QC): 4 (Per him assistant.) Lower Body Dressing (QC): 2 (Max assist for mesh underwear.) On/Off Footwear: 3 (Min assist to don slip on slippers after shower.) Pt. finishing shower with him assistant when OT entered room. OT took over session. web marketing assistant states that pt. completed shower with SBA. Pt. finished drying self. Noted slow movement of right UE at shoulder/hand level. However, pt. able to hold towel and dry self. OT fastened hospital gown for pt. Pt. attempted to don fresh mesh underwear, but unable to thread bilateral feet through them. OT did this for her, and donned over hips. Pt. required min assist to don slippers. Pt. stood in shower with CGA. CGA/min assist for balance to ambulate back to bed. Declines sitting in chair, stating that she is too tired. Pt. requires increased time to transfer sit-supine, but is able to do so with SBA. All needs are met. Education OT Patient Education: Correct positioning, Modified ADL techniques, Progress toward Goal/Update tx plan, Purpose of tx/functional activities, Reviewed precautions, Rehab process, Transfer techniques Teaching Recipient: Patient Teaching Methods: Demonstration, Discussion Response to Teaching: Verbalize Understanding, Return Demonstration OT Short Term Goals Short Term Goals Time Frame: Mar 17, 2021 Eatin Oral hygiene: 4 Toileting hygiene: 4 Shower/bathe self: 3 Upper body dressin Lower body dressin Putting on/taking off footwear: 4 OT Fdc Goals Fdc Goals Time Frame: Mar 24, 2021 Eating (QC): 6 Oral Hygiene (QC): 6 Toileting Hygiene (QC): 6 Shower/Bathe Self (QC): 4 Upper Body Dressing (QC): 5 Lower Body Dressing (QC): 4 On/Off Footwear (QC): 4 Additional Goals: 1-Demonstrate ADL Tasks, 2-Verbalize Understanding, 3- ImproveStrength/Michael 1=Demonstrate adherence to instructed precautions during ADL tasks. 2=Patient will verbalize/demonstrate understanding of assistive devices/modifications for ADL. 3=Patient will improve strength/tolerance for activity to enable patient to perform ADL's. OT Education/Plan Problem List/Assessment Assessment: Decreased Activ Tolerance, Decreased UE Strength, Impaired Cognition, Impaired I ADL's, Impaired Self-Care Skills, Restricted Funct UE ROM Discharge Recommendations Plan/Recommendations: Continue POC Therapy Discharge Recommendati: Post Acute OT Treatment Plan/Plan of Care Treatment,Training & Education: Yes Patient would benefit from OT for education, treatment and training to promote independence in ADL's, mobility, safety and/or upper extremity function for ADL's. Plan of Care: ADL Retraining, Functional Mobility, UE Funct Exercise/Act Treatment Duration: Mar 24, 2021 Frequency: 5 times per week Estimated Hrs Per Day: .25 hour per day Agreement: Yes Rehab Potential: Fair Time/GCodes Start Time: 10:48 Stop Time: 11:06 Total Time Billed (hr/min): 18 Billed Treatment Time 1, ADL SHARI GRANDA OT Mar 12, 2021 13:59
[2021-03-12] MEDS: MAGNESIUM OXIDE (MAG-OX)400 MG TAB PO SCH (17:50)
[2021-03-12] MEDS: PROPRANOLOL LA 120 MG (INDERAL LA) CAP NON-FORMULARY PO SCH (18:47)
[2021-03-13 03:41] VITALS: BP 132/78
[2021-03-13] MEDS: oxyCODONE/APAP 5/325MG (PERCOCET 5) TABLET PO SCH ×7 (04:01→23:50)
[2021-03-13 04:19] LABS: BASOPHILS % (AUTO) 0 % (0-10); EOSINOPHILS # (AUTO) 0.2 10^3/uL (0.0-0.3); EOSINOPHILS % (AUTO) 2 % (0-10); HEMATOCRIT 28 % (35-52); HEMOGLOBIN 8.3 g/dL (11.5-16.0); LYMPHOCYTES # (AUTO) 0.5 10^3/uL (1.0-4.0); LYMPHOCYTES % (AUTO) 6 % (12-44); MEAN CORPUSCULAR HEMOGLOBIN 21 pg (25-34); MEAN CORPUSCULAR HGB CONC 30 g/dL (32-36); MEAN CORPUSCULAR VOLUME 71 fL (80-99); MEAN PLATELET VOLUME 11.1 fL (9.0-12.2); MONOCYTES # (AUTO) 0.5 10^3/uL (0.0-1.0); MONOCYTES % (AUTO) 6 % (0-12); NEUTROPHILS % (AUTO) 85 % (42-75); PLATELET COUNT 399 10^3/uL (130-400); WHITE BLOOD COUNT 8.2 10^3/uL (4.3-11.0)
[2021-03-13 04:30] LABS: ALBUMIN 2.6 GM/DL (3.2-4.5); POTASSIUM 3.1 MMOL/L (3.6-5.0)
[2021-03-13 04:31] LABS: CALCIUM 8.4 MG/DL (8.5-10.1)
[2021-03-13 04:32] LABS: TOTAL PROTEIN 5.5 GM/DL (6.4-8.2)
[2021-03-13 04:34] LABS: BILIRUBIN,TOTAL 0.3 MG/DL (0.1-1.0)
[2021-03-13 04:36] LABS: CREATININE SERUM 0.54 MG/DL (0.60-1.30)
[2021-03-13] MEDS: POTASSIUM CL 10MEQ/50ML IVPB 50 ML IV SCH ×4 (06:37→09:31)
[2021-03-13 07:33] VITALS: BP 143/66
[2021-03-13] MEDS: APIXABAN 5 MG (ELIQUIS) TABLET PO SCH ×2 (07:49→20:14)
[2021-03-13] MEDS: MAGNESIUM OXIDE (MAG-OX)400 MG TAB PO SCH ×2 (07:51→17:57)
[2021-03-13] MEDS: FAMOTIDINE 20 MG (PEPCID) TABLET PO SCH ×2 (07:51→20:14)
[2021-03-13] MEDS: PANTOPRAZOLE 40 MG (PROTONIX) TAB PO SCH ×2 (07:51→08:17)
[2021-03-13] MEDS: toPIRamate 100 MG (TOPAMAX) TAB PO SCH ×2 (07:51→20:14)
[2021-03-13] MEDS: toPIRamate 25 MG (TOPAMAX) TAB PO SCH ×2 (07:52→20:14)
[2021-03-13] MEDS: FOLIC ACID 1 MG TAB PO SCH (07:53)
[2021-03-13] MEDS: FLUoxetine HCL 20 MG (PROzac) CAP PO SCH (07:53)
[2021-03-13] MEDS: PREGABALIN 150 MG (LYRICA) CAPSULE PO SCH ×2 (09:07→20:14)
[2021-03-13] MEDS: KCL 20 MEQ TAB (K-DUR) PO SCH ×4 (09:07→20:19)
[2021-03-13] MEDS: cefTRIAXone 2,000 MG/SWFI 20 ML IV PUSH IV SCH ×2 (09:31)
--- NOTE | 2021-03-13 09:57 | Physical Therapy Progress Note ---
Therapy Progress Note FLIGHT OPERATIONS DISPATCH CLERK checked on pt appox 9:15, pt declined tx att stating she was on the phone and to come back later, pt also stated that "she would not be walking today". Will check back with pt later. CULLEN BAEZ FLIGHT OPERATIONS DISPATCH CLERK Mar 13, 2021 09:57
--- NOTE | 2021-03-13 11:28 | Physical Therapy Daily Note ---
PT Daily Note-Current Subjective Pt in bed upon arrival, pt reluctantly agrees to PT. Post ex, pt stated she is done with ex and wouldn't do any more att. Pt stated pain all throughout her body, didn't rate out of 10. Post tx, pt stated they are tired and just want to sleep, when asked if PT could come back after lunch, pt refused and stated she is done with therapies for today and will be sleeping. Pain Pain Description: Ache Mental Status Patient Orientation: Person, Confused, Place Transfers SCALE: Activities may be completed with or without assistive devices. 1-Qwphdpmfyv-xibjppg completes the activity by him/herself with no assistance from a helper. 5-Set-up or Clean-up Assistance-helper sets up or cleans up; patient completes activity. [place] assists only prior to or following the activity. 4-Supervision or Touching Assistance-helper provides verbal cues and/or touching/steadying and/or contact guard assistance as patient completes activity. Assistance may be provided throughout the activity or intermittently. 3-Partial/Moderate Assistance-helper does LESS THAN HALF the effort. [place] lifts, holds or supports trunk or limbs, but provides less than half the effort. 2-Substantial/Maximal Assistance-helper does MORE THAN HALF the effort. [place] lifts or holds trunk or limbs and provides more than half the effort. 8-Cvmlrktkx-yhpsgy does ALL the effort. Patient does none of the effort to complete the activity. Or, the assistance of 2 or more helpers is required for the patient to complete the activity. If activity was not attempted, code reason: 7-Patient Refused. 9-Not Applicable-not attempted and the patient did not perform the activity before the current illness, exacerbation or injury. 10-Not Attempted due to Environmental Limitations-(lack of equipment, weather restraints, etc.). 88-Not Attempted due to Medical Conditions or Safety Concerns. Gait Training Does the Patient Walk?: No and Walking Goal IS indicated Wheelchair Training Does the Pt Use a Wheelchair?: No Exercises Supine Ex: Ankle pumps, Quad Set, Heel Slides, Straight leg raise Supine Reps: 5 Pt performed supine ex with assistance from GAS PLANT SPECIALIST. Pt performed 5 reps on B LE for each ex. Treatments Pt performed supine ex in bed with active-assist from GAS PLANT SPECIALIST. Pt left in bed with all needs met, call light in hand. Assessment Current Status: Poor Progress Pt self limits d/t pain and fatigue. Pt showed confusion throughout tx, having difficulty finding words. PT Marketing Manager Health Communications Goals Marketing Manager Health Communications Goals PT Marketing Manager Health Communications Goals Time Frame: Mar 22, 2021 Roll Left & Right (QC): 6 Sit to Lying (QC): 6 Lying-Sitting on Side/Bed(QC): 6 Sit to Stand (QC): 6 Chair/Xke-mb-Atpfl Xfer(QC): 6 Toilet Transfer (QC): 6 Does the Patient Walk: Yes Walk 10 feet (QC): 6 Walk 50ft with 2 Turns (QC): 6 Walk 150 ft (QC): 6 PT Plan Problem List Problem List: Activity Tolerance, Functional Strength, Bed Mobility Treatment/Plan Treatment Plan: Continue Plan of Care Treatment Plan: Bed Mobility, Education, Functional Activity Michael, Functional Strength, Gait, Safety, Therapeutic Exercise, Transfers Treatment Duration: Mar 22, 2021 Frequency: 6 times per week Estimated Hrs Per Day: .25 hour per day Patient and/or Family Agrees t: Yes Time/GCodes Time In: 1112 Time Out: 1121 Total Billed Treatment Time: 9 Total Billed Treatment 1, Ex CULLEN BAEZ GAS PLANT SPECIALIST Mar 13, 2021 11:28
--- NOTE | 2021-03-13 12:01 | Occupational Ther Daily Note ---
OT Current Status-Daily Note Subjective Pt alert, sitting on BSC. Nrsg present in room. Mental Status/Objective Patient Orientation: Person, Place, Time, Situation Attachments: IV ADL-Treatment Assist x2 for toileting hygiene, 1 person to stand and 1 person to cleanse after BM. Pt then ambulated using FWW with CGA for safety from BSC to bed. Pt able to go from EOB to supine by self. After therapy, pt left in care of nrsg. All needs met in room. Therapy Code Descriptions/Definitions Functional [place] Measure: 0=Not Assessed/NA 4=Minimal Assistance 1=Total Assistance 5=Supervision or Setup 2=Maximal Assistance 6=Modified [place] 3=Moderate Assistance 7=Complete IndependenceSCALE: Activities may be completed with or without assistive devices. 9-Ssrjobfnhp-wnwprna completes the activity by him/herself with no assistance from a helper. 5-Set-up or Clean-up Assistance-helper sets up or cleans up; patient completes activity. [place] assists only prior to or following the activity. 4-Supervision or Touching Assistance-helper provides verbal cues and/or touching/steadying and/or contact guard assistance as patient completes activity. Assistance may be provided throughout the activity or intermittently. 3-Partial/Moderate Assistance-helper does LESS THAN HALF the effort. [place] lifts, holds or supports trunk or limbs, but provides less than half the effort. 2-Substantial/Maximal Assistance-helper does MORE THAN HALF the effort. [place] lifts or holds trunk or limbs and provides more than half the effort. 4-Efqqogaja-sbzler does ALL the effort. Patient does none of the effort to complete the activity. Or, the assistance of 2 or more helpers is required for the patient to complete the activity. If activity was not attempted, code reason: 7-Patient Refused. 9-Not Applicable-not attempted and the patient did not perform the activity before the current illness, exacerbation or injury. 10-Not Attempted due to Environmental Limitations-(lack of equipment, weather restraints, etc.). 88-Not Attempted due to Medical Conditions or Safety Concerns. OT Short Term Goals Short Term Goals Time Frame: Mar 17, 2021 Eatin Oral hygiene: 4 Toileting hygiene: 4 Shower/bathe self: 3 Upper body dressin Lower body dressin Putting on/taking off footwear: 4 OT Halfway Goals Halfway Goals Time Frame: Mar 24, 2021 Eating (QC): 6 Oral Hygiene (QC): 6 Toileting Hygiene (QC): 6 Shower/Bathe Self (QC): 4 Upper Body Dressing (QC): 5 Lower Body Dressing (QC): 4 On/Off Footwear (QC): 4 Additional Goals: 1-Demonstrate ADL Tasks, 2-Verbalize Understanding, 3- ImproveStrength/Michael 1=Demonstrate adherence to instructed precautions during ADL tasks. 2=Patient will verbalize/demonstrate understanding of assistive devices/modifications for ADL. 3=Patient will improve strength/tolerance for activity to enable patient to perform ADL's. OT Education/Plan Problem List/Assessment Assessment: Decreased Activ Tolerance, Decreased Safety Aware, Decreased UE Strength, Impaired Self-Care Skills, Restricted Funct UE ROM Discharge Recommendations Plan/Recommendations: Continue POC Treatment Plan/Plan of Care Patient would benefit from OT for education, treatment and training to promote independence in ADL's, mobility, safety and/or upper extremity function for ADL's. Plan of Care: ADL Retraining, Functional Mobility, UE Funct Exercise/Act Treatment Duration: Mar 24, 2021 Frequency: 5 times per week Estimated Hrs Per Day: .25 hour per day Agreement: Yes Rehab Potential: Fair Time/GCodes Start Time: 10:45 Stop Time: 10:55 Total Time Billed (hr/min): 10 Billed Treatment Time 1 visit-ADL 1 (10 min) MITA HARGROVE Mar 13, 2021 12:01
[2021-03-13 12:05] VITALS: BP 134/76
[2021-03-13] MEDS: PROPRANOLOL LA 120 MG (INDERAL LA) CAP NON-FORMULARY PO SCH (13:29)
--- NOTE | 2021-03-13 15:01 | Progress Note - Hospitalist ---
MAYELIN LERNER 03/13/21 1501: Subjective HPI/CC On Admission Date Seen by Provider: Mar 13, 2021 Time Seen by Provider: 08:00 This 50-year-old woman presents to the emergency room with complaints of fever, confusion, and diffuse aches. She recently finished a round of chemotherapy for a brain tumor. She underwent surgical resection as well. She reports suspicion of infection at her port site about a week ago. Antibiotics were prescribed but she has not received them yet. She has been Covid vaccinated. Temperature is currently 100.8. She has experienced some nausea and EMS gave Zofran in route. Upon my arrival the patient was able to answer questions knew that she was in the hospital appeared to be in pain wincing at times thought it was her chest but she was very unclear and could not localize any discomfort. She thought that her port might be infected because she had a little bit of oozing at one of the incision sites last week apparently according to her she thought it was put in about 3 weeks ago she reports minimal discomfort to the site currently. She been feeling fatigued and feeling feverish with chills at home. She voiced no other complaints with negative review of systems. As she was Covid negative via PCR. Subjective/Events-last exam Pt sitting up in her chair and her condition seems to be improving. Pt complains of tongue scrapings that affect her appetite, pain on the bottom of her feet, and right arm pain. BP remains elevated at 143/66. IV was started to replenish her K+ at 3.1. Pt Mg level corrected at 2.0. AST/ALT also corrected resolving the transaminitis. Continued PT/OT. Review of Systems General: Chills; No Fatigue, No Appetite HEENT: No Head Aches, No Visual Changes, No Sore Throat Pulmonary: Cough Cardiovascular: No: Chest Pain, Palpitations, Edema Gastrointestinal: Nausea, Abdominal Pain; No: Vomiting, Diarrhea Genitourinary: No Dysuria, No Frequency, No Incontinence Musculoskeletal: shoulder pain, arm pain, foot pain Neurological: Weakness, Seizures; No: Numbness Focused Exam Time of Focused Exam: 17:30 Objective Exam Vital Signs Vital Signs Date Time Temp Pulse Resp B/P (MAP) Pulse Ox O2 Delivery O2 Flow Rate FiO2 03/13/21 12:05 36.5 75 18 134/76 (95) 98 Room Air 03/09/21 10:09 10 Capillary Refill : Less Than 3 Seconds General Appearance: Mild Distress, Obese HEENT: PERRL/EOMI Neck: Full Range of Motion, Normal Inspection, Non Tender, Supple Respiratory: Chest Non Tender, Decreased Breath Sounds Cardiovascular: Regular Rate, Rhythm Gastrointestinal: Normal Bowel Sounds, Soft, Tenderness Extremity: Non Tender, No Calf Tenderness Neurologic/Psychiatric: Alert, Oriented x3 Skin: Normal Color, Warm/Dry, Tattoos/Piercings Results/Procedures Lab Laboratory Tests 03/13/21 04:00 Patient resulted labs reviewed. Assessment/Plan Assessment and Plan Assess & Plan/Chief Complaint Sepsis -port suspected as source, removed 03-09 -rocephin -no leukocytosis or fevers Glioblastoma -s/p recent chemo and surgical resection Hypokalemia -replete today Anemia -stable, continue to monitor Transaminitis -resolved Fever -resolved -continue to monitor Anticoagulation -eliquis Atrial fibrillation -eliquis H/O DVT -eliquis COPD -albuterol prn -02 to keep sat's >90 NIDDM -order accuchecks achs HTN -monitor Hypomagnesemia -resolved Morbid obesity -encourage healthy diet SHAWNA POWERS DO 03/14/21 0601: Subjective Subjective/Events-last exam Pt doing pretty well but still remains with a lot of somatic complaints Magnesium corrected at 2.0 but potassium of 3.1, giving 40 IV Will need to be on swingbed to further recover Right previous port removable is hurting Objective Exam General Appearance: No Apparent Distress, WD/WN, Obese Respiratory: Lungs Clear Assessment/Plan Assessment and Plan Assess & Plan/Chief Complaint Replace electrolytes PT OT Supervisory-Addendum Brief Verification & Attestation Participated in pt care: history, MDM, physical Personally performed: exam, history, MDM, supervision of care Care discussed with: Medical Student Procedures: n/a Results interpretation: Verified all documentation Verification and Attestation of Medical Student E/M Service A medical student performed and documented this service in my presence. I reviewed and verified all information documented by the medical student and made modifications to such information, when appropriate. I personally performed the physical exam and medical decision making. Shawna Powers Mar 14, 2021,06:01 MAYELIN LERNER Mar 13, 2021 15:01 SHAWNA POWERS DO Mar 14, 2021 06:01
[2021-03-13 16:49] VITALS: BP 114/72
[2021-03-13 20:11] VITALS: BP 104/64
[2021-03-13 23:30] VITALS: BP 133/58
[2021-03-14 03:11] VITALS: BP 147/61
[2021-03-14] MEDS: oxyCODONE/APAP 5/325MG (PERCOCET 5) TABLET PO SCH ×3 (03:48→11:47)
[2021-03-14 03:52] LABS: BASOPHILS % (AUTO) 0 % (0-10); EOSINOPHILS # (AUTO) 0.2 10^3/uL (0.0-0.3); EOSINOPHILS % (AUTO) 2 % (0-10); HEMATOCRIT 30 % (35-52); HEMOGLOBIN 9.2 g/dL (11.5-16.0); LYMPHOCYTES # (AUTO) 0.7 10^3/uL (1.0-4.0); LYMPHOCYTES % (AUTO) 8 % (12-44); MEAN CORPUSCULAR HEMOGLOBIN 22 pg (25-34); MEAN CORPUSCULAR HGB CONC 30 g/dL (32-36); MEAN CORPUSCULAR VOLUME 71 fL (80-99); MEAN PLATELET VOLUME 11.1 fL (9.0-12.2); MONOCYTES # (AUTO) 0.5 10^3/uL (0.0-1.0); MONOCYTES % (AUTO) 6 % (0-12); NEUTROPHILS # (AUTO) 6.8 10^3/uL (1.8-7.8); NEUTROPHILS % (AUTO) 83 % (42-75); PLATELET COUNT 437 10^3/uL (130-400); WHITE BLOOD COUNT 8.2 10^3/uL (4.3-11.0)
[2021-03-14 04:04] LABS: ALBUMIN 2.8 GM/DL (3.2-4.5); POTASSIUM 3.8 MMOL/L (3.6-5.0)
[2021-03-14 04:05] LABS: CALCIUM 8.7 MG/DL (8.5-10.1)
[2021-03-14 04:08] LABS: BILIRUBIN,TOTAL 0.3 MG/DL (0.1-1.0)
[2021-03-14 04:10] LABS: CREATININE SERUM 0.59 MG/DL (0.60-1.30)
[2021-03-14 04:13] LABS: MAGNESIUM 2.1 MG/DL (1.6-2.4)
[2021-03-14 07:47] VITALS: BP 142/68
--- NOTE | 2021-03-14 09:10 | Physical Therapy Daily Note ---
PT Daily Note-Current Subjective Patient agrees to PT. Mental Status Patient Orientation: Person, Time, Situation Transfers SCALE: Activities may be completed with or without assistive devices. 3-Tbrhmqlhbv-pbkyvrq completes the activity by him/herself with no assistance from a helper. 5-Set-up or Clean-up Assistance-helper sets up or cleans up; patient completes activity. [place] assists only prior to or following the activity. 4-Supervision or Touching Assistance-helper provides verbal cues and/or touching/steadying and/or contact guard assistance as patient completes activity. Assistance may be provided throughout the activity or intermittently. 3-Partial/Moderate Assistance-helper does LESS THAN HALF the effort. [place] lifts, holds or supports trunk or limbs, but provides less than half the effort. 2-Substantial/Maximal Assistance-helper does MORE THAN HALF the effort. [place] lifts or holds trunk or limbs and provides more than half the effort. 8-Iktkowznx-jnluva does ALL the effort. Patient does none of the effort to c omplete the activity. Or, the assistance of 2 or more helpers is required for the patient to complete the activity. If activity was not attempted, code reason: 7-Patient Refused. 9-Not Applicable-not attempted and the patient did not perform the activity before the current illness, exacerbation or injury. 10-Not Attempted due to Environmental Limitations-(lack of equipment, weather restraints, etc.). 88-Not Attempted due to Medical Conditions or Safety Concerns. Sit to Stand (QC): 4 (SBA) Toilet Transfer (QC): 4 (SBA (patient toileted self and washed hands independently)) Gait Training Does the Patient Walk?: Yes Distance: 125' Walk 10 feet (QC): 4 (SBA) Walk 50 ft with 2 Turns(QC): 4 (SBA) Gait Assistive Device: FWW safe and functional with no deviation Assessment Patient remains up in recliner with needs met. Much improved on this date with gross motor skills. PT Peer Health Promoter Goals Peer Health Promoter Goals PT Peer Health Promoter Goals Time Frame: Mar 22, 2021 Roll Left & Right (QC): 6 Sit to Lying (QC): 6 Lying-Sitting on Side/Bed(QC): 6 Sit to Stand (QC): 6 Chair/Hhv-gn-Qemhq Xfer(QC): 6 Toilet Transfer (QC): 6 Does the Patient Walk: Yes Walk 10 feet (QC): 6 Walk 50ft with 2 Turns (QC): 6 Walk 150 ft (QC): 6 PT Plan Treatment/Plan Treatment Plan: Continue Plan of Care Treatment Plan: Bed Mobility, Education, Functional Activity Michael, Functional Strength, Gait, Safety, Therapeutic Exercise, Transfers Treatment Duration: Mar 22, 2021 Frequency: 6 times per week Estimated Hrs Per Day: .25 hour per day Patient and/or Family Agrees t: Yes Time/GCodes Time In: 843 Time Out: 853 Total Billed Treatment Time: 10 Total Billed Treatment 1 visit FA 10 min JOSUE PERALTA PT Mar 14, 2021 09:10
[2021-03-14] MEDS: MAGNESIUM OXIDE (MAG-OX)400 MG TAB PO SCH (09:13)
[2021-03-14] MEDS: FAMOTIDINE 20 MG (PEPCID) TABLET PO SCH (09:13)
[2021-03-14] MEDS: toPIRamate 100 MG (TOPAMAX) TAB PO SCH (09:13)
[2021-03-14] MEDS: FLUoxetine HCL 20 MG (PROzac) CAP PO SCH (09:13)
[2021-03-14] MEDS: toPIRamate 25 MG (TOPAMAX) TAB PO SCH (09:14)
[2021-03-14] MEDS: PANTOPRAZOLE 40 MG (PROTONIX) TAB PO SCH ×2 (09:14)
[2021-03-14] MEDS: APIXABAN 5 MG (ELIQUIS) TABLET PO SCH (09:14)
[2021-03-14] MEDS: cefTRIAXone 2,000 MG/SWFI 20 ML IV PUSH IV SCH ×2 (09:14)
[2021-03-14] MEDS: FOLIC ACID 1 MG TAB PO SCH (09:14)
[2021-03-14] MEDS: PREGABALIN 150 MG (LYRICA) CAPSULE PO SCH (09:24)
[2021-03-14] MEDS: PROPRANOLOL LA 120 MG (INDERAL LA) CAP NON-FORMULARY PO SCH (09:24)
[2021-03-14] MEDS: KCL 20 MEQ TAB (K-DUR) PO SCH (09:24)
[2021-03-14] MEDS ORDERED: POTA20TA8 PO (11:07)
[2021-03-14] MEDS ORDERED: MAGN400T8 PO (11:07)
[2021-03-14] MEDS ORDERED: OXYC1TAB11 PO (11:07)
--- NOTE | 2021-03-14 11:09 | D/C HH Face to Face Order ---
D/C Face to Face Orders Reconcile Patient Problems Problems Reviewed?: Yes Instructions for Patient Via [facility], Patient Instructions/FollowUp: [facility] 1 week Physician to follow Patient: [facility] Discharge Diet for Home: No Restrictions Patient Problems: Glioblastoma Patient Data-Allergies,Ht & Wt Patient Allergies: Coded Allergies: estradiol (Unverified Allergy, Severe, RASH/TIA, 11/14/19) Penicillins (Unverified Allergy, Mild, Hives, 06/28/19) povidone-iodine (Unverified Allergy, Mild, Hives, 06/28/19) soap (Unverified Adverse Reaction, Unknown, 08/08/20) Height (Feet): 5 Height (Inches): 0 Weight (Pounds): 303 Weight (Ounces): 6.0 Home Health Need/Face to Face Date of Face to Face: Mar 14, 2021 Clinical Findings: Generalized weakness and fatigue, Instability, Muscle weakness, Unsteady gait I have seen Pt [id number]-[id number]: Yes Discharged To: Home Diagnosis/Conditions: Glioblastoma Patient is Homebound due to: CognItive deficits, Nataly fall risk due to instabilty, Muscle weakness, Pain w/ambulation Homebound Status Due to the above stated illness, injury or surgical procedure (medical condition or diagnosis) and associated clinical findings, the patient is homebound because of his/her inability to leave home except with aid of a supportive device and/or person AND leaving the home requires a considerable and taxing effort or is medically contraindicated. Pt req the following assistanc: Walker Home Health Nursing Orders Home Health Services Order: Nursing Services, Chemical Etching Processor-Evaluate & Treat, Physical Therapy-Evaluate & Treat Home Health Infusion Therapy Line Start Date: Mar 12, 2021 Certify Stmt I certify that this patient is under my care and that I, a nurse practitioner or a physician; a recruitment and outreach assistant working with me, had a face to face encounter that - meets the physician face to face encounter requirements with this patient as dated. JAMAAL POWERS DO Mar 14, 2021 11:09
--- NOTE | 2021-03-14 11:09 | Discharge Summary ---
Discharge Summary Hospital Course Hospital Course Date of Admission: Mar 07, 2021 at 20:21 Admission Diagnosis : Family Physician/Provider: Avis Parrish MD Date of Discharge: 03/14/21 Discharge Diagnosis: [ ] Hospital Course: [ ] Labs and Pending Lab Test: Laboratory Tests 03/14/21 03:40: White Blood Count 8.2, Red Blood Count 4.28, Hemoglobin 9.2L, Hematocrit 30L, Mean Corpuscular Volume 71L, Mean Corpuscular Hemoglobin 22L, Mean Corpuscular Hemoglobin Concent 30L, Red Cell Distribution Width 21.4H, Platelet Count 437H, Mean Platelet Volume 11.1, Immature Granulocyte % (Auto) 1, Neutrophils (%) (Auto) 83H, Lymphocytes (%) (Auto) 8L, Monocytes (%) (Auto) 6, Eosinophils (%) (Auto) 2, Basophils (%) (Auto) 0, Neutrophils # (Auto) 6.8, Lymphocytes # (Auto) 0.7L, Monocytes # (Auto) 0.5, Eosinophils # (Auto) 0.2, Basophils # (Auto) 0.0, Immature Granulocyte # (Auto) 0.0, Sodium Level 134L, Potassium Level 3.8, Chloride Level 107, Carbon Dioxide Level 16L, Anion Gap 11, Blood Urea Nitrogen 7, Creatinine 0.59L, Estimat Glomerular Filtration Rate 109, BUN/Creatinine Ratio 12, Glucose Level 137H, Calcium Level 8.7, Corrected Calcium 9.7, Magnesium Level 2.1, Total Bilirubin 0.3, Aspartate Amino Transf (AST/SGOT) 19, Alanine Aminotransferase (ALT/SGPT) 39, Alkaline Phosphatase 145H, Total Protein 6.0L, Albumin 2.8L Microbiology 03/09/21 Gram Stain - Final, Complete 03/09/21 Anaerobic Culture - Final, Complete No anaerobes isolated 03/09/21 Surgical Culture - Final, Complete Staphylococcus aureus 03/08/21 MRSA Screen - Final, Complete MRSA not isolated 03/08/21 Gram Stain - Final, Complete 03/08/21 Wound Culture - Final, Complete Staphylococcus aureus 03/08/21 Blood Culture - Final, Complete No growth 03/07/21 Urine Culture - Final, Complete Staphylococcus haemolyticus Home Meds Active Magnesium Oxide 400 Mg Tablet 400 Mg PO BIDPC Klor-Con M20 (Potassium Chloride) 20 Meq Tab.er.prt 20 Meq PO DAILY Oxycodone-Acetaminophen 5-325 (Oxycodone HCl/Acetaminophen) 1 Each Tablet 1-2 Tab PO Q4H PRN Reported Narcan (Naloxone HCl) 4 Mg [place] 4 Mg NS Q20M PRN Levofloxacin 750 Mg Tablet 750 Mg PO DAILY FILLED 03/06/2021 #7 7 DAY SUPPLY Fluoxetine HCl 40 Mg Capsule 40 Mg PO DAILY Folic Acid 1 Mg Tablet 1 Mg PO DAILY Ondansetron Odt (Ondansetron) 8 Mg Tab.rapdis 8 Mg PO Q8H PRN Eliquis (Apixaban) 5 Mg Tablet 5 Mg PO BID Emgality (Galcanezumab-Gnlm) 120 Mg/1 Ml Pen.injctr 120 Mg INJ MONTHLY Tums Ultra (Calcium Carbonate) 400 Mg Tab.chew 400-800 Mg PO PRN PRN Ubrelvy (Ubrogepant) 50 Mg Tablet 50 Mg PO UD PRN Atorvastatin Calcium 20 Mg Tablet 20 Mg PO DAILY Famotidine 20 Mg Tablet 20 Mg PO BID Pantoprazole Sodium 40 Mg Tablet.dr 40 Mg PO DAILY Hydroxyzine HCl 25 Mg Tablet 25 Mg PO Q8H PRN Metformin HCl 1,000 Mg Tablet 1,000 Mg PO BID Tizanidine HCl 2 Mg Tablet 2 Mg PO TID PRN Propranolol HCl ER (Propranolol HCl) 120 Mg Cap.sa.24h 120 Mg PO DAILY Ventolin Hfa (Albuterol Sulfate) 1 Puff Puff 2 Puff INH QID PRN Topiramate 50 Mg Tablet 150 Mg PO BID TAKES 3 (50MG) TABLETS Discharge Physical Examination Vital Signs Vital Signs Date Time Temp Pulse Resp B/P (MAP) Pulse Ox O2 Delivery O2 Flow Rate FiO2 03/14/21 10:12 03/14/21 08:00 Room Air 03/14/21 07:47 36.2 84 20 99 03/09/21 10:09 10 Allergies: Coded Allergies: estradiol (Unverified Allergy, Severe, RASH/TIA, 11/14/19) Penicillins (Unverified Allergy, Mild, Hives, 06/28/19) povidone-iodine (Unverified Allergy, Mild, Hives, 06/28/19) soap (Unverified Adverse Reaction, Unknown, 08/08/20) Discharge Summary Date of Admission Mar 07, 2021 at 20:21 Date of Discharge Discharge Date: Mar 14, 2021 Admission Diagnosis A/P 1. Sepsis no clear-cut etiology will need to assume strong possibility of port infection despite unremarkable site on examination this morning will defer to surgery and continue broad-spectrum antibiotics. Cardiovascular examination unremarkable no murmurs appreciated blood cultures pending. 2. Immune compromised status secondary to recent chemotherapy for glioblastoma multiforme of the brain. 3. Eliquis use reported patient reports a past history of DVT will hold until surgery evaluates for possible port removal for further evaluation for sepsis source we will obtain an echocardiogram initiating with transthoracic. Discharge Diagnosis Replace electrolytes PT OT JAMAAL POWERS DO Mar 14, 2021 11:09
[2021-03-14] MEDS ORDERED: CEFD300C3 PO (11:11)
--- NOTE | 2021-03-14 11:11 | Discharge Summary ---
Discharge Summary Hospital Course Was the Problem List Reviewed?: Yes Problems/Dx: (1) Severe sepsis Status: Acute (2) Glioblastoma multiforme of brain (3) History of craniotomy Status: Acute (4) Former smoker Status: Chronic (5) Port-A-Cath in place Status: Acute Hospital Course Date of Admission: Mar 07, 2021 at 20:21 Admission Diagnosis : Family Physician/Provider: Avis Parrish MD Date of Discharge: 03/14/21 Discharge Diagnosis: Severe sepsis, [place] port infection status post removal by Dr. Mclean, glioblastoma Hospital Course: Hospital Course: Pt had a lengthy hospital course for eight days after she came in with severe sepsis found to have infection of the [place] Port. Dr. Mclean removed that and placed packing. Overall was able to manage the pain and PT and OT consulted. She was back to her baseline with us of a walker and was discharged in improved condition. Labs and Pending Lab Test: Laboratory Tests 03/14/21 03:40: White Blood Count 8.2, Red Blood Count 4.28, Hemoglobin 9.2L, Hematocrit 30L, Mean Corpuscular Volume 71L, Mean Corpuscular Hemoglobin 22L, Mean Corpuscular Hemoglobin Concent 30L, Red Cell Distribution Width 21.4H, Platelet Count 437H, Mean Platelet Volume 11.1, Immature Granulocyte % (Auto) 1, Neutrophils (%) (Auto) 83H, Lymphocytes (%) (Auto) 8L, Monocytes (%) (Auto) 6, Eosinophils (%) (Auto) 2, Basophils (%) (Auto) 0, Neutrophils # (Auto) 6.8, Lymphocytes # (Auto) 0.7L, Monocytes # (Auto) 0.5, Eosinophils # (Auto) 0.2, Basophils # (Auto) 0.0, Immature Granulocyte # (Auto) 0.0, Sodium Level 134L, Potassium Level 3.8, Chloride Level 107, Carbon Dioxide Level 16L, Anion Gap 11, Blood Urea Nitrogen 7, Creatinine 0.59L, Estimat Glomerular Filtration Rate 109, BUN/Creatinine Ratio 12, Glucose Level 137H, Calcium Level 8.7, Corrected Calcium 9.7, Magnesium Level 2.1, Total Bilirubin 0.3, Aspartate Amino Transf (AST/SGOT) 19, Alanine Aminotransferase (ALT/SGPT) 39, Alkaline Phosphatase 145H, Total Protein 6.0L, Albumin 2.8L Microbiology 03/09/21 Gram Stain - Final, Complete 03/09/21 Anaerobic Culture - Final, Complete No anaerobes isolated 03/09/21 Surgical Culture - Final, Complete Staphylococcus aureus 03/08/21 MRSA Screen - Final, Complete MRSA not isolated 03/08/21 Gram Stain - Final, Complete 03/08/21 Wound Culture - Final, Complete Staphylococcus aureus 03/08/21 Blood Culture - Final, Complete No growth 03/07/21 Urine Culture - Final, Complete Staphylococcus haemolyticus Home Meds Active Cefdinir 300 Mg Capsule 300 Mg PO BID Magnesium Oxide 400 Mg Tablet 400 Mg PO BIDPC Klor-Con M20 (Potassium Chloride) 20 Meq Tab.er.prt 20 Meq PO DAILY Oxycodone-Acetaminophen 5-325 (Oxycodone HCl/Acetaminophen) 1 Each Tablet 1-2 Tab PO Q4H PRN Reported Narcan (Naloxone HCl) 4 Mg [place] 4 Mg NS Q20M PRN Levofloxacin 750 Mg Tablet 750 Mg PO DAILY FILLED 03/06/2021 #7 7 DAY SUPPLY Fluoxetine HCl 40 Mg Capsule 40 Mg PO DAILY Folic Acid 1 Mg Tablet 1 Mg PO DAILY Ondansetron Odt (Ondansetron) 8 Mg Tab.rapdis 8 Mg PO Q8H PRN Eliquis (Apixaban) 5 Mg Tablet 5 Mg PO BID Emgality (Galcanezumab-Gnlm) 120 Mg/1 Ml Pen.injctr 120 Mg INJ MONTHLY Tums Ultra (Calcium Carbonate) 400 Mg Tab.chew 400-800 Mg PO PRN PRN Ubrelvy (Ubrogepant) 50 Mg Tablet 50 Mg PO UD PRN Atorvastatin Calcium 20 Mg Tablet 20 Mg PO DAILY Famotidine 20 Mg Tablet 20 Mg PO BID Pantoprazole Sodium 40 Mg Tablet.dr 40 Mg PO DAILY Hydroxyzine HCl 25 Mg Tablet 25 Mg PO Q8H PRN Metformin HCl 1,000 Mg Tablet 1,000 Mg PO BID Tizanidine HCl 2 Mg Tablet 2 Mg PO TID PRN Propranolol HCl ER (Propranolol HCl) 120 Mg Cap.sa.24h 120 Mg PO DAILY Ventolin Hfa (Albuterol Sulfate) 1 Puff Puff 2 Puff INH QID PRN Topiramate 50 Mg Tablet 150 Mg PO BID TAKES 3 (50MG) TABLETS Assessment/Pt Instructions [facility] in 1 week Discharge Planning: <30 minutes discharge planning Discharge Physical Examination Vital Signs Vital Signs Date Time Temp Pulse Resp B/P (MAP) Pulse Ox O2 Delivery O2 Flow Rate FiO2 03/14/21 10:12 03/14/21 08:00 Room Air 03/14/21 07:47 36.2 84 20 99 03/09/21 10:09 10 General Appearance: No Apparent Distress, WD/WN, Chronically ill, Obese Respiratory: Lungs Clear Cardiovascular: Regular Rate, Rhythm Neurologic/Psychiatric: Alert, Oriented x3 Allergies: Coded Allergies: estradiol (Unverified Allergy, Severe, RASH/TIA, 11/14/19) Penicillins (Unverified Allergy, Mild, Hives, 06/28/19) povidone-iodine (Unverified Allergy, Mild, Hives, 06/28/19) soap (Unverified Adverse Reaction, Unknown, 08/08/20) Discharge Summary Date of Admission Mar 07, 2021 at 20:21 Date of Discharge Discharge Date: Mar 14, 2021 Admission Diagnosis A/P 1. Sepsis no clear-cut etiology will need to assume strong possibility of port infection despite unremarkable site on examination this morning will defer to surgery and continue broad-spectrum antibiotics. Cardiovascular examination unremarkable no murmurs appreciated blood cultures pending. 2. Immune compromised status secondary to recent chemotherapy for glioblastoma multiforme of the brain. 3. Eliquis use reported patient reports a past history of DVT will hold until surgery evaluates for possible port removal for further evaluation for sepsis source we will obtain an echocardiogram initiating with transthoracic. Discharge Diagnosis Replace electrolytes PT OT JAMAAL POWERS DO Mar 14, 2021 11:11
[2021-03-14 11:23] VITALS: BP 121/56
--- NOTE | 2021-03-14 12:38 | Progress Note ---
MAYELIN LERNER 03/14/21 1238: Progress Note 50yo F with PMH of s/p chemotherapy of glioblastoma multiforme and surgical resection presents with fever, confusion, and diffuse aches. Diffuse somatic complaints and Dilaudid was given for pain. Chest pain with EKG showing no acute findings. Cultures on port site showed findings of staph aureus and thus pt completed a course of vancomycin. Consulted surgery Dr. Mclean and port removed on 03/11. Electrolytes such as K+ and Mg+ were replenished. AST/ALT were slightly elevated due to fatty liver and recent chemotherapy resolved. Pt to be discharged today with walker at home and daughter will pick her up to go to [facility] and pharmacy to continue inpatient meds for pain control. SHAWNA POWERS DO 03/15/21 0631: Supervisory-Addendum Brief Verification & Attestation Participated in pt care: history, MDM, physical Personally performed: exam, history, MDM, supervision of care Care discussed with: Medical Student Procedures: n/a Results interpretation: Verified all documentation Verification and Attestation of Medical Student E/M Service A medical student performed and documented this service in my presence. I reviewed and verified all information documented by the medical student and made modifications to such information, when appropriate. I personally performed the physical exam and medical decision making. Shawna Powers Mar 15, 2021,06:30 MAYELIN LERNER Mar 14, 2021 12:38 SHAWNA POWERS DO Mar 15, 2021 06:31
[2021-03-15] MEDS ORDERED: PROPRANOLOL LA 120 MG (INDERAL LA) CAP NON-FORMULARY PO SCH (09:00)
== END 2021-03-14 12:18 | disposition home health service (06) | DRG 314 ==
LOC: EDUNIT# 15:19 → ER 15:21 → 4TH 20:21
PROVIDERS: ADMIT Internal Medicine; ATTEND Internal Medicine
PROC: 0JPT0WZ Removal of Totally Implantable Vascular Access Device from Trunk Subcutaneous Tissue and Fascia, Open Approach (ICD-10-PCS; principal; 2021-03-09 09:07)
DX: T80.211A Bloodstream infection due to central venous catheter, initial encounter (principal); A41.02 Sepsis due to Methicillin resistant Staphylococcus aureus; R65.20 Severe sepsis without septic shock; C71.9 Malignant neoplasm of brain, unspecified; Z68.42 Body mass index [BMI] 45.0-49.9, adult; J44.9 Chronic obstructive pulmonary disease, unspecified; I48.0 Paroxysmal atrial fibrillation; Z66 Do not resuscitate; Z20.822 Contact with and (suspected) exposure to COVID-19; E78.00 Pure hypercholesterolemia, unspecified; F17.210 Nicotine dependence, cigarettes, uncomplicated; I10 Essential (primary) hypertension; K21.9 Gastro-esophageal reflux disease without esophagitis; E87.6 Hypokalemia; D64.9 Anemia, unspecified; M19.91 Primary osteoarthritis, unspecified site; E11.9 Type 2 diabetes mellitus without complications; F41.9 Anxiety disorder, unspecified; F32.9 Major depressive disorder, single episode, unspecified; E66.01 Morbid (severe) obesity due to excess calories; Z91.19 Patient's noncompliance with other medical treatment and regimen; Z87.820 Personal history of traumatic brain injury; Z86.718 Personal history of other venous thrombosis and embolism; Z79.01 Long term (current) use of anticoagulants; Z79.84 Long term (current) use of oral hypoglycemic drugs; Z79.891 Long term (current) use of opiate analgesic; Z88.0 Allergy status to penicillin; Z88.8 Allergy status to other drugs, medicaments and biological substances
CPT/HCPCS: 36415; 36569; 51702; 70450; 71045; 76937; 80048; 80053; 81000; 82947; 83605; 83735; 84145; 85007; 85025; 85027; 85610; 85730; 86141; 87040; 87070; 87075; 87077; 87081; 87088; 87186; 87205; 87636; 93005; 94760; 96361; 96365; 96367; 96368; 96375; 96376

== ENCOUNTER 2021-03-17 03:49 | Emergency (ER) | payer MEDICARE, MEDICAID ==
[~2021-03-17] VITALS: Ht 165 cm; Wt 145.0 kg
[~2021-03-17 03:49] MED LIST changes: +CEFD300C3 PO; +FLUO40CA PO; +FOLI1TAB33 PO; +LEVO750T39 PO; +MAGN400T8 PO; +OXYC1TAB11 PO; +POTA20TA8 PO
[2021-03-17] MEDS ORDERED: oxyCODONE/APAP 5/325MG (PERCOCET 5) TABLET PO ONE (05:45)
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
[2021-03-17 06:57] VITALS: BP 130/82
--- NOTE | 2021-03-17 07:10 | Diagnostic Imaging Report ---
PROCEDURE: CT lumbar spine without contrast. TECHNIQUE: Multiple contiguous axial images were obtained through the lumbar spine without the use of intravenous contrast. Sagittal and coronal reformations were then performed. Auto Exposure Controls were utilized during the CT exam to meet ALARA standards for radiation dose reduction. INDICATION: Fell yesterday, complaining of lower back and right hip pain. FINDINGS: Noncontrast CT scanning of the lumbar spine demonstrates no fracture or subluxation. Levoscoliosis is present. The surrounding soft tissues appear unremarkable. Lung bases are clear. The L1-L2 level demonstrates mild facet arthropathy. The L2-3 level demonstrates mild disc space narrowing. The L3-L4 level demonstrates disc space narrowing and endplate sclerosis. There is central stenosis and some narrowing of the right neural foramina. The L4-L5 level demonstrates minimal facet arthropathy left greater than right. There is mild narrowing of the left neural foramina. Mild disc space narrowing is present. The L5-S1 level demonstrates disc space narrowing with minimal posterior osteophytes. IMPRESSION: Scoliosis and degenerative changes present in the lumbar spine. No acute findings are present. Findings agree with [facility] report. Dictated by: Dictated on workstation # [id number]
--- NOTE | 2021-03-17 07:10 | Diagnostic Imaging Report ---
PROCEDURE: CT pelvis without contrast. TECHNIQUE: Multiple contiguous axial images were obtained through the pelvis without the use of intravenous contrast. Sagittal and coronal reformations were performed. Auto Exposure Controls were utilized during the CT exam to meet ALARA standards for radiation dose reduction. INDICATION: Fall with pelvic pain COMPARISON: 01/14/2021 There is no evidence of an acute fracture or malalignment. No significant pelvic hematoma is identified. There is anterior abdominal wall defect containing herniated omentum. There is probable bony island within the left medial pubic ramus. IMPRESSION: No evidence of acute pelvic abnormality. Dictated by: Dictated on workstation # [id number]
== END 2021-03-17 06:50 | disposition home or self-care (01) ==
LOC: EDUNIT# 03:49 → ER 03:51
DX: M25.551 Pain in right hip (principal); M54.5 Low back pain; E66.01 Morbid (severe) obesity due to excess calories; G47.30 Sleep apnea, unspecified; J44.9 Chronic obstructive pulmonary disease, unspecified; I10 Essential (primary) hypertension; E78.00 Pure hypercholesterolemia, unspecified; E11.9 Type 2 diabetes mellitus without complications; K21.9 Gastro-esophageal reflux disease without esophagitis; I48.0 Paroxysmal atrial fibrillation; F41.9 Anxiety disorder, unspecified; F32.9 Major depressive disorder, single episode, unspecified; Z86.73 Personal history of transient ischemic attack (TIA), and cerebral infarction without residual deficits; Z68.43 Body mass index [BMI] 50.0-59.9, adult; Z79.01 Long term (current) use of anticoagulants; Z79.84 Long term (current) use of oral hypoglycemic drugs; Z79.899 Other long term (current) drug therapy
CPT/HCPCS: 72131; 72192

== ENCOUNTER 2021-03-22 18:51 | Emergency (ER) | payer MEDICARE, MEDICAID ==
[~2021-03-22] VITALS: Ht 165 cm; Wt 145.0 kg
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
[2021-03-22] MEDS ORDERED: NS IV 1000 ML 1,000 ML IV SCH (19:00)
[2021-03-22] MEDS ORDERED: PROMETHAZINE INJ 25 MG/ML (PHENERGAN) AMP IVP ONE (19:00)
[2021-03-22 19:05] LABS: BASOPHILS % (AUTO) 1 % (0-10); EOSINOPHILS # (AUTO) 0.1 10^3/uL (0.0-0.3); EOSINOPHILS % (AUTO) 2 % (0-10); HEMATOCRIT 34 % (35-52); HEMOGLOBIN 9.8 g/dL (11.5-16.0); LYMPHOCYTES # (AUTO) 0.9 10^3/uL (1.0-4.0); LYMPHOCYTES % (AUTO) 15 % (12-44); MEAN CORPUSCULAR HEMOGLOBIN 22 pg (25-34); MEAN CORPUSCULAR HGB CONC 29 g/dL (32-36); MEAN CORPUSCULAR VOLUME 76 fL (80-99); MEAN PLATELET VOLUME 10.7 fL (9.0-12.2); MONOCYTES # (AUTO) 0.6 10^3/uL (0.0-1.0); MONOCYTES % (AUTO) 10 % (0-12); NEUTROPHILS # (AUTO) 4.5 10^3/uL (1.8-7.8); NEUTROPHILS % (AUTO) 73 % (42-75); PLATELET COUNT 461 10^3/uL (130-400); WHITE BLOOD COUNT 6.1 10^3/uL (4.3-11.0)
[2021-03-22 19:44] LABS: BILIRUBIN,TOTAL 0.3 MG/DL (0.1-1.0); CALCIUM 9.1 MG/DL (8.5-10.1); CREATININE SERUM 0.85 MG/DL (0.60-1.30); POTASSIUM 3.2 MMOL/L (3.6-5.0); TOTAL PROTEIN 6.2 GM/DL (6.4-8.2)
--- NOTE | 2021-03-22 19:52 | Diagnostic Imaging Report ---
KNEE, LEFT, 3 VIEWS COMPARISON: None available. INDICATION: Left knee pain after fall TECHNIQUE: Non-weight bearing AP, oblique, and lateral views of the left knee. FINDINGS: No fracture or traumatic malalignment. Mild degenerative for space narrowing the medial compartment. No knee joint effusion. IMPRESSION: No acute fracture about the left knee. Dictated by: Dictated on workstation # [id number]
--- NOTE | 2021-03-22 19:57 | Diagnostic Imaging Report ---
INDICATION: Right shoulder pain after fall. COMPARISON: 09/14/2020. TECHNIQUE: Three views of the right shoulder were obtained. FINDINGS: Stable postoperative changes of intramedullary nail fixation of old nonunited proximal humeral fracture. Lucency around the proximal stabilization peg in the humeral head is unchanged. No acute fracture is seen about the right shoulder. Glenohumeral alignment is normal. AC joint is also normal alignment. IMPRESSION: 1. No acute fracture about the right shoulder. 2. 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 Dictated by: Dictated on workstation # [id number]
[2021-03-22 20:19] LABS: BILIRUBIN,URINE NEGATIVE (NEGATIVE); CLARITY,URINE CLEAR; COLOR,URINE YELLOW; GLUCOSE, URINE (UA) NEGATIVE (NEGATIVE); KETONES,URINE NEGATIVE (NEGATIVE); LEUKOCYTE ESTERASE ,URINE NEGATIVE (NEGATIVE); NITRITE,URINE NEGATIVE (NEGATIVE); PROTEIN,URINE NEGATIVE (NEGATIVE)
[2021-03-22 20:29] LABS: AMORPHOUS SEDIMENT,UR FEW AMOR URATES /LPF; BACTERIA,URINE TRACE /HPF; HYALINE CASTS, URINE 0-2 /LPF
[2021-03-22] MEDS ORDERED: ONDANSETRON 4 MG (ZOFRAN) ORAL DISSOLVE TAB ONE (20:57)
[2021-03-22] MEDS ORDERED: ONDANSETRON 4 MG (ZOFRAN) ORAL DISSOLVE TAB PO STA (20:59)
[2021-03-22] MEDS ORDERED: ONDANSETRON 4 MG/2 ML (SDV) Z0FRAN IVP ONE (21:00)
[2021-03-22] MEDS ORDERED: SCOPOLAMINE 1.5 MG (TRANSDERM-SCOP) PATCH ONE (21:08)
[2021-03-22 21:11] VITALS: BP 109/85
== END 2021-03-22 21:13 | disposition home or self-care (01) ==
LOC: EDUNIT# 18:51 → ER 18:53
DX: R42 Dizziness and giddiness (principal); J44.9 Chronic obstructive pulmonary disease, unspecified; G47.30 Sleep apnea, unspecified; E66.9 Obesity, unspecified; I48.91 Unspecified atrial fibrillation; E78.00 Pure hypercholesterolemia, unspecified; K21.9 Gastro-esophageal reflux disease without esophagitis; G89.29 Other chronic pain; M54.9 Dorsalgia, unspecified; E11.9 Type 2 diabetes mellitus without complications; F41.9 Anxiety disorder, unspecified; F32.9 Major depressive disorder, single episode, unspecified; Z68.43 Body mass index [BMI] 50.0-59.9, adult; Z87.820 Personal history of traumatic brain injury; Z79.01 Long term (current) use of anticoagulants; Z79.899 Other long term (current) drug therapy; Z79.891 Long term (current) use of opiate analgesic; Z79.84 Long term (current) use of oral hypoglycemic drugs
CPT/HCPCS: 36415; 73030; 73562; 80053; 81000; 85025

== ENCOUNTER 2021-03-28 11:56 | Emergency (ER) | payer MEDICARE, MEDICAID ==
[~2021-03-28] VITALS: Ht 165.1 cm; Wt 113.4 kg
[2021-03-28] MEDS ORDERED: DROPERIDOL 5 MG/2 ML (INAPSINE) AMP ONE (12:04)
[2021-03-28] MEDS ORDERED: LACTATED RINGERS 1,000 ML IV ONE (12:04)
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
[2021-03-28] MEDS ORDERED: DROPERIDOL 5 MG/2 ML (INAPSINE) AMP IV ONE ×2 (12:15→15:30)
[2021-03-28] MEDS ORDERED: LACTATED RINGERS 1,000 ML IV SCH (12:15)
[2021-03-28 12:19] LABS: BASOPHILS # (AUTO) 0.1 10^3/uL (0.0-0.1); BASOPHILS % (AUTO) 1 % (0-10); EOSINOPHILS # (AUTO) 0.1 10^3/uL (0.0-0.3); EOSINOPHILS % (AUTO) 1 % (0-10); HEMATOCRIT 38 % (35-52); HEMOGLOBIN 11.4 g/dL (11.5-16.0); LYMPHOCYTES # (AUTO) 0.8 10^3/uL (1.0-4.0); LYMPHOCYTES % (AUTO) 9 % (12-44); MEAN CORPUSCULAR HEMOGLOBIN 22 pg (25-34); MEAN CORPUSCULAR HGB CONC 30 g/dL (32-36); MEAN CORPUSCULAR VOLUME 75 fL (80-99); MEAN PLATELET VOLUME 10.1 fL (9.0-12.2); MONOCYTES # (AUTO) 0.7 10^3/uL (0.0-1.0); MONOCYTES % (AUTO) 8 % (0-12); NEUTROPHILS % (AUTO) 81 % (42-75); PLATELET COUNT 478 10^3/uL (130-400); WHITE BLOOD COUNT 8.6 10^3/uL (4.3-11.0)
[2021-03-28 12:27] LABS: ALBUMIN 3.3 GM/DL (3.2-4.5); POTASSIUM 2.6 MMOL/L (3.6-5.0)
[2021-03-28 12:28] LABS: CALCIUM 9.3 MG/DL (8.5-10.1)
[2021-03-28 12:29] LABS: TOTAL PROTEIN 6.9 GM/DL (6.4-8.2)
[2021-03-28 12:31] LABS: BILIRUBIN,TOTAL 0.5 MG/DL (0.1-1.0)
[2021-03-28 12:33] LABS: CREATININE SERUM 0.78 MG/DL (0.60-1.30)
[2021-03-28 12:36] LABS: MAGNESIUM 1.6 MG/DL (1.6-2.4)
[2021-03-28] MEDS ORDERED: KCL 20 MEQ TAB (K-DUR) PO ONE (12:45)
[2021-03-28] MEDS ORDERED: NS IV 1000 ML 1,000 ML ONE (13:14)
[2021-03-28] MEDS: POTASSIUM CL 10MEQ/50ML IVPB 50 ML IV SCH ×2 (13:18→14:31)
[2021-03-28 14:24] LABS: CLARITY,URINE CLOUDY; COLOR,URINE YELLOW; GLUCOSE, URINE (UA) NEGATIVE (NEGATIVE); KETONES,URINE 2+ (NEGATIVE); LEUKOCYTE ESTERASE ,URINE 1+ (NEGATIVE); NITRITE,URINE NEGATIVE (NEGATIVE); PROTEIN,URINE TRACE (NEGATIVE)
[2021-03-28 14:39] LABS: BACTERIA,URINE FEW /HPF; BILIRUBIN,URINE 1+ (NEGATIVE)
[2021-03-28] MEDS ORDERED: cefTRIAXone 1,000 MG in WATER (STERILE) FOR INJECTION 10 ML IV ONE (15:00)
[2021-03-28] MEDS ORDERED: POTA-51 PO (15:02)
[2021-03-28 15:44] LABS: AMPHETAMINE SCREEN, URINE NEGATIVE (NEGATIVE); BARBITURATE SCREEN URINE NEGATIVE (NEGATIVE); BENZODIAZEPINES SCREEN URINE POSITIVE (NEGATIVE); CANNABINOID SCREEN, URINE NEGATIVE (NEGATIVE); COCAINE SCREEN URINE NEGATIVE (NEGATIVE); METHADONE STAT NEGATIVE (NEGATIVE); METHAMPHETAMINE SCREEN URINE S NEGATIVE (NEGATIVE); OPIATE SCREEN URINE NEGATIVE (NEGATIVE); OXYCODONE STAT POSITIVE (NEGATIVE); PROPOXYPHENE STAT NEGATIVE (NEGATIVE); TRICYCLIC ANTIDEPRESSANTS SCRE NEGATIVE (NEGATIVE)
[2021-03-28 16:00] VITALS: BP 108/64
[2021-03-29] MEDS ORDERED: PROM25TA14 PO (20:05)
== END 2021-03-28 16:00 | disposition home or self-care (01) ==
LOC: ER 11:57
DX: R11.2 Nausea with vomiting, unspecified (principal); R10.84 Generalized abdominal pain; E87.6 Hypokalemia; E66.9 Obesity, unspecified; J44.9 Chronic obstructive pulmonary disease, unspecified; G47.30 Sleep apnea, unspecified; I10 Essential (primary) hypertension; I48.0 Paroxysmal atrial fibrillation; E78.00 Pure hypercholesterolemia, unspecified; G89.29 Other chronic pain; M54.9 Dorsalgia, unspecified; K21.9 Gastro-esophageal reflux disease without esophagitis; E11.9 Type 2 diabetes mellitus without complications; F41.9 Anxiety disorder, unspecified; F32.9 Major depressive disorder, single episode, unspecified; Z87.820 Personal history of traumatic brain injury; Z68.43 Body mass index [BMI] 50.0-59.9, adult; Z79.01 Long term (current) use of anticoagulants; Z79.899 Other long term (current) drug therapy; Z79.891 Long term (current) use of opiate analgesic; Z79.84 Long term (current) use of oral hypoglycemic drugs
CPT/HCPCS: 36415; 80053; 80306; 81000; 83735; 85025; 87077; 87088; 87186; 93005

== ENCOUNTER 2021-03-29 16:45 | Emergency (ER) | payer MEDICARE, MEDICAID ==
[~2021-03-29] VITALS: Ht 165.1 cm; Wt 92.1 kg
[~2021-03-29 16:45] MED LIST changes: +POTA-51 PO
[2021-03-29 17:40] LABS: BASOPHILS % (AUTO) 1 % (0-10)
[2021-03-29 17:42] LABS: EOSINOPHILS # (AUTO) 0.1 10^3/uL (0.0-0.3); EOSINOPHILS % (AUTO) 1 % (0-10); HEMATOCRIT 34 % (35-52); HEMOGLOBIN 10.1 g/dL (11.5-16.0); LYMPHOCYTES # (AUTO) 0.9 10^3/uL (1.0-4.0); LYMPHOCYTES % (AUTO) 14 % (12-44); MEAN CORPUSCULAR HEMOGLOBIN 22 pg (25-34); MEAN CORPUSCULAR HGB CONC 29 g/dL (32-36); MEAN CORPUSCULAR VOLUME 75 fL (80-99); MEAN PLATELET VOLUME 10.5 fL (9.0-12.2); MONOCYTES # (AUTO) 0.5 10^3/uL (0.0-1.0); MONOCYTES % (AUTO) 9 % (0-12); NEUTROPHILS # (AUTO) 4.8 10^3/uL (1.8-7.8); NEUTROPHILS % (AUTO) 75 % (42-75); PLATELET COUNT 382 10^3/uL (130-400); WHITE BLOOD COUNT 6.3 10^3/uL (4.3-11.0)
[2021-03-29 17:44] LABS: ALBUMIN 2.9 GM/DL (3.2-4.5)
[2021-03-29 17:45] LABS: POTASSIUM 2.6 MMOL/L (3.6-5.0)
[2021-03-29] MEDS ORDERED: NS IV 1000 ML 1,000 ML IV ONE ×2 (17:45→20:30)
[2021-03-29 17:46] LABS: CALCIUM 8.7 MG/DL (8.5-10.1)
[2021-03-29 17:47] LABS: TOTAL PROTEIN 5.8 GM/DL (6.4-8.2)
[2021-03-29 17:49] LABS: BILIRUBIN,TOTAL 0.4 MG/DL (0.1-1.0)
[2021-03-29 17:51] LABS: CREATININE SERUM 0.73 MG/DL (0.60-1.30)
[2021-03-29 17:54] LABS: MAGNESIUM 1.5 MG/DL (1.6-2.4)
[2021-03-29] MEDS ORDERED: PROMETHAZINE INJ 25 MG/ML (PHENERGAN) AMP IVP ONE (18:00)
[2021-03-29] MEDS ORDERED: PROMETHAZINE INJ 25 MG/ML (PHENERGAN) AMP ONE (18:03)
[2021-03-29 18:07] LABS: SMEAR SCAN COMMENT YES
[2021-03-29] MEDS ORDERED: KCL 20 MEQ TAB (K-DUR) PO ONE ×2 (18:45→19:01)
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
[2021-03-29] MEDS ORDERED: MAGNESIUM 1 GM/100 ML IVPB 100 ML IV ONE (19:00)
[2021-03-29 20:05] LABS: BILIRUBIN,URINE 2+ (NEGATIVE); CLARITY,URINE SL CLOUDY; COLOR,URINE YELLOW; GLUCOSE, URINE (UA) NEGATIVE (NEGATIVE); KETONES,URINE 3+ (NEGATIVE); LEUKOCYTE ESTERASE ,URINE 1+ (NEGATIVE); NITRITE,URINE NEGATIVE (NEGATIVE); PROTEIN,URINE TRACE (NEGATIVE)
[2021-03-29] MEDS ORDERED: PROM25TA14 PO (20:05)
[2021-03-29] MEDS ORDERED: POTASSIUM CL 10MEQ/50ML IVPB 50 ML IV ONE (20:15)
[2021-03-29 20:29] LABS: BACTERIA,URINE FEW /HPF; CALCIUM OXALATE CRYSTALS,UR FEW /LPF
[2021-03-29] MEDS ORDERED: NS IV 1000 ML 1,000 ML ONE (20:31)
[2021-03-29 20:52] VITALS: BP 114/98
== END 2021-03-29 20:46 | disposition left against medical advice (07) ==
LOC: EDUNIT# 16:45 → ER 16:54
DX: R11.2 Nausea with vomiting, unspecified (principal); E87.6 Hypokalemia; R10.9 Unspecified abdominal pain; G47.30 Sleep apnea, unspecified; J44.9 Chronic obstructive pulmonary disease, unspecified; I10 Essential (primary) hypertension; E78.00 Pure hypercholesterolemia, unspecified; I48.0 Paroxysmal atrial fibrillation; K21.9 Gastro-esophageal reflux disease without esophagitis; E11.9 Type 2 diabetes mellitus without complications; E66.01 Morbid (severe) obesity due to excess calories; G89.29 Other chronic pain; M54.9 Dorsalgia, unspecified; F41.9 Anxiety disorder, unspecified; F32.9 Major depressive disorder, single episode, unspecified; Z87.820 Personal history of traumatic brain injury; Z68.33 Body mass index [BMI] 33.0-33.9, adult; Z79.01 Long term (current) use of anticoagulants; Z79.84 Long term (current) use of oral hypoglycemic drugs; Z79.899 Other long term (current) drug therapy; Z79.891 Long term (current) use of opiate analgesic
CPT/HCPCS: 36415; 80053; 81000; 82150; 83690; 83735; 85025; 87088; 93005

== ENCOUNTER 2021-04-03 10:47 | Observation (INO) | payer MEDICARE, MEDICAID ==
[~2021-04-03] VITALS: Ht 163 cm; Wt 92.1 kg
[2021-04-03 16:00] VITALS: BP 154/68
[2021-04-03] MEDS: NS IV 1000 ML 1,000 ML IV SCH (16:37)
[2021-04-03] MEDS: ONDANSETRON 4 MG/2 ML (SDV) Z0FRAN IVP PRN (16:38)
[2021-04-03] MEDS: PROMETHAZINE INJ 25 MG/ML (PHENERGAN) AMP IVP PRN (16:39)
[2021-04-03] MEDS ORDERED: CATHETER FLUSH 10 ML SYR IV PRN (16:45)
[2021-04-03] MEDS ORDERED: ENOXAPARIN 100 MG/1 ML (LOVENOX) SYR SC SCH (17:30)
[2021-04-03] MEDS ORDERED: morphine INJ 4 MG/ML 1 ML (VIAL/SYRINGE) ONE (18:06)
[2021-04-03 18:08] LABS: BILIRUBIN,URINE NEGATIVE (NEGATIVE); CLARITY,URINE CLEAR; COLOR,URINE DARK YELLOW; GLUCOSE, URINE (UA) NEGATIVE (NEGATIVE); KETONES,URINE NEGATIVE (NEGATIVE); LEUKOCYTE ESTERASE ,URINE NEGATIVE (NEGATIVE); NITRITE,URINE NEGATIVE (NEGATIVE); PH,URINE 7.5 (5-9); PROTEIN,URINE NEGATIVE (NEGATIVE)
[2021-04-03] MEDS: morphine INJ 4 MG/ML 1 ML (VIAL/SYRINGE) IVP PRN ×2 (18:34→23:06)
[2021-04-03 18:38] LABS: AMORPHOUS SEDIMENT,UR FEW AMOR PHOSPHATE /LPF; BACTERIA,URINE TRACE /HPF; RBC,URINE 0-2 /HPF
[2021-04-03 18:55] LABS: BASOPHILS % (AUTO) 1 % (0-10); EOSINOPHILS % (AUTO) 0 % (0-10); HEMATOCRIT 33 % (35-52); LYMPHOCYTES # (AUTO) 0.7 10^3/uL (1.0-4.0); LYMPHOCYTES % (AUTO) 16 % (12-44); MEAN CORPUSCULAR HEMOGLOBIN 23 pg (25-34); MEAN CORPUSCULAR HGB CONC 30 g/dL (32-36); MEAN CORPUSCULAR VOLUME 74 fL (80-99); MEAN PLATELET VOLUME 10.8 fL (9.0-12.2); MONOCYTES # (AUTO) 0.4 10^3/uL (0.0-1.0); MONOCYTES % (AUTO) 9 % (0-12); NEUTROPHILS # (AUTO) 3.2 10^3/uL (1.8-7.8); NEUTROPHILS % (AUTO) 74 % (42-75); PLATELET COUNT 342 10^3/uL (130-400); WHITE BLOOD COUNT 4.4 10^3/uL (4.3-11.0)
[2021-04-03 19:01] LABS: ALBUMIN 2.7 GM/DL (3.2-4.5); POTASSIUM 2.9 MMOL/L (3.6-5.0)
[2021-04-03 19:03] LABS: TOTAL PROTEIN 5.4 GM/DL (6.4-8.2)
[2021-04-03 19:05] LABS: BILIRUBIN,TOTAL 0.6 MG/DL (0.1-1.0)
[2021-04-03 19:07] LABS: CREATININE SERUM 0.69 MG/DL (0.60-1.30)
[2021-04-03 19:10] LABS: MAGNESIUM 1.7 MG/DL (1.6-2.4)
[2021-04-03 20:00] VITALS: BP 134/73
[2021-04-03] MEDS: ENOXAPARIN 100 MG/1 ML (LOVENOX) SYR SC SCH (20:52)
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
[2021-04-03] MEDS: POTASSIUM CL 10MEQ/50ML IVPB 50 ML IV SCH (23:06)
[2021-04-04] VITALS (7 sets, daily range): BP systolic 124–177; BP diastolic 68–91
[2021-04-04] MEDS: POTASSIUM CL 10MEQ/50ML IVPB 50 ML IV SCH ×7 (00:11→12:46)
[2021-04-04] MEDS: NS IV 1000 ML 1,000 ML IV SCH ×4 (00:13→17:03)
[2021-04-04] MEDS: ONDANSETRON 4 MG/2 ML (SDV) Z0FRAN IVP PRN ×2 (05:21→09:31)
[2021-04-04 05:38] LABS: HEMATOCRIT 33 % (35-52); MEAN CORPUSCULAR HEMOGLOBIN 23 pg (25-34); MEAN CORPUSCULAR HGB CONC 31 g/dL (32-36); MEAN CORPUSCULAR VOLUME 75 fL (80-99); MEAN PLATELET VOLUME 10.3 fL (9.0-12.2); PLATELET COUNT 313 10^3/uL (130-400); WHITE BLOOD COUNT 4.3 10^3/uL (4.3-11.0)
[2021-04-04 05:51] LABS: ALBUMIN 2.5 GM/DL (3.2-4.5); POTASSIUM 3.1 MMOL/L (3.6-5.0)
[2021-04-04 05:52] LABS: CALCIUM 7.9 MG/DL (8.5-10.1)
[2021-04-04 05:55] LABS: BILIRUBIN,TOTAL 0.6 MG/DL (0.1-1.0)
[2021-04-04 05:57] LABS: CREATININE SERUM 0.65 MG/DL (0.60-1.30)
[2021-04-04] MEDS: inSUlin ASPART (NovoLOG) 1 UNIT/0.01 ML (CHARGE PER UNIT) SC SCH ×4 (06:22→21:20)
[2021-04-04] MEDS: PROMETHAZINE INJ 25 MG/ML (PHENERGAN) AMP IVP PRN ×2 (06:36→14:20)
--- NOTE | 2021-04-04 08:11 | Progress Note ---
RACIEL REYES 04/04/21 0811: Subjective Subjective/Events-last exam Harjit is a 50 yo F here for vomiting and diarrhea which has led to dehydration. Patient is not feeling any better from yesterday. Has vomited twice this morning and continues to have no appetite. Has had diarrhea this morning. Patient still has some diffuse abdominal pain. Has a headache but says it is causing minor pain. Review of Systems General: No Chills, No Night Sweats HEENT: Head Aches (Patient says they have a slight headache); No Sinus Congestion Pulmonary: Cough Cardiovascular: No: Chest Pain, Edema Gastrointestinal: Vomiting, Diarrhea Genitourinary: No Dysuria, No Incontinence Neurological: Weakness; No: Change in speech, Confusion Focused Exam Respiratory: Chest Non Tender, Lungs Clear, Normal Breath Sounds, No Accessory Muscle Use Cardiovascular: Regular Rate, Rhythm Capillary Refill: Less Than 3 Seconds Peripheral Pulses: 3+ Radial Pulses (R) Skin: normal color Objective Exam Last Set of Vital Signs Vital Signs Date Time Temp Pulse Resp B/P (MAP) Pulse Ox O2 Delivery O2 Flow Rate FiO2 04/04/21 03:09 36.2 77 18 127/68 (87) 99 Room Air Capillary Refill : I&O Intake and Output 04/04/21 00:00 Intake Total 50 ml Output Total 300 ml Balance -250 ml Intake Oral 50 ml Output Urine Total 300 ml # Bowel Movements 1 Daily Weight Change Unsure General: Alert, Oriented X3, Cooperative HEENT: Atraumatic Neck: Supple Lungs: Clear to Auscultation, Normal Air Movement Heart: Regular Rate, No Murmurs Abdomen: Normal Bowel Sounds Extremities: No Clubbing, No Cyanosis, No Edema Skin: No Rashes Neuro: Normal Speech, Normal Tone Psych/Mental Status: Mental Status NL, Mood NL Results/Procedures Lab Laboratory Tests 04/03/21 17:50: Urine Color DARK YELLOW, Urine Clarity CLEAR, Urine pH 7.5, Urine Specific [place] 1.010L, Urine Protein NEGATIVE, Urine Glucose (UA) NEGATIVE, Urine Ketones NEGATIVE, Urine Nitrite NEGATIVE, Urine Bilirubin NEGATIVE, Urine U robilinogen 0.2, Urine Leukocyte Esterase NEGATIVE, Urine RBC (Auto) TRACE-I, Urine RBC 0-2, Urine WBC 2-5, Urine Crystals PRESENTH, Urine Amorphous Sediment FEW STACY PHOSPHATEH, Urine Bacteria TRACE, Urine Casts NONE, Urine Mucus SMALLH, Urine Culture Indicated NO 04/03/21 18:45: White Blood Count 4.4, Red Blood Count 4.44, Hemoglobin 10.0L, Hematocrit 33L, Mean Corpuscular Volume 74L, Mean Corpuscular Hemoglobin 23L, Mean Corpuscular Hemoglobin Concent 30L, Red Cell Distribution Width 23.6H, Platelet Count 342, Mean Platelet Volume 10.8, Immature Granulocyte % (Auto) 1, Neutrophils (%) (Auto) 74, Lymphocytes (%) (Auto) 16, Monocytes (%) (Auto) 9, Eosinophils (%) (Auto) 0, Basophils (%) (Auto) 1, Neutrophils # (Auto) 3.2, Lymphocytes # (Auto) 0.7L, Monocytes # (Auto) 0.4, Eosinophils # (Auto) 0.0, Basophils # (Auto) 0.0, Immature Granulocyte # (Auto) 0.0, Sodium Level 138, Potassium Level 2.9L, Chloride Level 106, Carbon Dioxide Level 20L, Anion Gap 12, Blood Urea Nitrogen 7, Creatinine 0.69, Estimat Glomerular Filtration Rate 91, BUN/Creatinine Ratio 10, Glucose Level 135H, Calcium Level 8.0L, Corrected Calcium 9.0, Magnesium Level 1.7, Total Bilirubin 0.6, Aspartate Amino Transf (AST/SGOT) 28, Alanine Aminotransferase (ALT/SGPT) 64H, Alkaline Phosphatase 125, Total Protein 5.4L, Albumin 2.7L 04/04/21 00:30: Stool Occult Blood Immunoassay NEGATIVE 04/04/21 05:24: White Blood Count 4.3, Red Blood Count 4.36, Hemoglobin 10.0L, Hematocrit 33L, Mean Corpuscular Volume 75L, Mean Corpuscular Hemoglobin 23L, Mean Corpuscular Hemoglobin Concent 31L, Red Cell Distribution Width 23.8H, Platelet Count 313, Mean Platelet Volume 10.3, Sodium Level 137, Potassium Level 3.1L, Chloride Level 108H, Carbon Dioxide Level 18L, Anion Gap 11, Blood Urea Nitrogen 7, Creatinine 0.65, Estimat Glomerular Filtration Rate 97, BUN/Creatinine Ratio 11, Glucose Level 115H, Calcium Level 7.9L, Corrected Calcium 9.1, Total Bilirubin 0.6, Aspartate Amino Transf (AST/SGOT) 29, Alanine Aminotransferase (ALT/SGPT) 57H, Alkaline Phosphatase 113, Total Protein 5.0L, Albumin 2.5L Assessment/Plan Assessment/Plan (1) Nausea and vomiting Status: Acute Assessment & Plan: Ondansetron, promethazine, IVF, and metoclopramide. (2) Dehydration Status: Acute Assessment & Plan: NS @ 150 mls/hr, labs continue to be stable. (3) Diarrhea Status: Acute Assessment & Plan: C diff testing was negative. Stool cultures ordered to rule out bacterial infection. (4) Diabetes mellitus Status: Chronic Assessment & Plan: Sliding scale insulin Qualifiers: (5) COPD (chronic obstructive pulmonary disease) Status: Chronic Assessment & Plan: No evidence of exacerbation. (6) Hypertension Status: Chronic Assessment & Plan: Resume home meds as needed. (7) Obesity Status: Chronic (8) Atrial fibrillation Status: Chronic Assessment & Plan: Unable to keep down PO, will use treatment dose enoxaparin for now. 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 OBINNA HARDING MD 04/04/210: Supervisory-Addendum Brief Verification & Attestation Participated in pt care: history, MDM, physical Personally performed: exam Care discussed with: Medical Student Procedures: n/a I personally saw and examined patient today and did my own history and exam, agree with student documentation. RACIEL REYES Apr 04, 2021 08:11 OBINNA HARDING MD Apr 04, 2021 22:00
[2021-04-04] MEDS: PANTOPRAZOLE 40 MG (PROTONIX) VIAL IVP SCH (08:49)
[2021-04-04] MEDS: ENOXAPARIN 100 MG/1 ML (LOVENOX) SYR SC SCH ×2 (08:52→21:20)
[2021-04-04] MEDS ORDERED: ENOXAPARIN 40 MG/0.4 ML (LOVENOX) SYR SC SCH (09:00)
[2021-04-04] MEDS ORDERED: OXYC1TAB11 PO (10:50)
[2021-04-04] MEDS ORDERED: POTA-51 PO (10:50)
[2021-04-04] MEDS ORDERED: PROM25TA14 PO (10:50)
[2021-04-04] MEDS ORDERED: ONDA8TAB15 PO (10:50)
[2021-04-04] MEDS ORDERED: POTA20TA15 PO (10:50)
[2021-04-04] MEDS: morphine INJ 4 MG/ML 1 ML (VIAL/SYRINGE) IVP PRN ×2 (13:39→17:03)
[2021-04-04] MEDS: METOCLOPRAMIDE INJ 10 MG/2 ML (REGLAN) IVP SCH (17:02)
[2021-04-05] MEDS: METOCLOPRAMIDE INJ 10 MG/2 ML (REGLAN) IVP SCH ×5 (00:21→23:17)
[2021-04-05] MEDS: NS IV 1000 ML 1,000 ML IV SCH ×4 (00:35→21:05)
[2021-04-05 03:07] VITALS: BP 135/90
[2021-04-05] MEDS: morphine INJ 4 MG/ML 1 ML (VIAL/SYRINGE) IVP PRN ×3 (03:12→11:12)
[2021-04-05 06:19] LABS: HEMATOCRIT 33 % (35-52); MEAN CORPUSCULAR HEMOGLOBIN 23 pg (25-34); MEAN CORPUSCULAR HGB CONC 31 g/dL (32-36); MEAN CORPUSCULAR VOLUME 76 fL (80-99); MEAN PLATELET VOLUME 10.4 fL (9.0-12.2); PLATELET COUNT 282 10^3/uL (130-400); WHITE BLOOD COUNT 4.8 10^3/uL (4.3-11.0)
[2021-04-05 06:28] LABS: POTASSIUM 3.4 MMOL/L (3.6-5.0)
[2021-04-05 06:30] LABS: CALCIUM 7.8 MG/DL (8.5-10.1)
[2021-04-05 06:34] LABS: CREATININE SERUM 0.66 MG/DL (0.60-1.30)
[2021-04-05] MEDS: inSUlin ASPART (NovoLOG) 1 UNIT/0.01 ML (CHARGE PER UNIT) SC SCH ×4 (06:55→20:41)
[2021-04-05 07:20] VITALS: BP 142/86
[2021-04-05] MEDS: PANTOPRAZOLE 40 MG (PROTONIX) VIAL IVP SCH (08:27)
[2021-04-05] MEDS: ENOXAPARIN 100 MG/1 ML (LOVENOX) SYR SC SCH ×2 (08:28→21:05)
--- NOTE | 2021-04-05 08:50 | Progress Note - Hospitalist ---
Subjective HPI/CC On Admission Date Seen by Provider: Apr 05, 2021 Time Seen by Provider: 06:00 Subjective/Events-last exam Patient currently reports no nausea but is developing headache. She reports a history of migraines which usually started on the left and reports that her glioblastoma related headache pain tends to be more on the right. Her current headache she reports is centralized in the little bit different. She is a poor historian apparently most recently has been taking Ubrelvy for her migraines. She reports that Toradol has not been effective for previous headaches. She denies any other neurologic changes from her recent baseline. Last CT head little over a month ago was stable to improved and it is been a month since her last chemotherapy for radiation. Objective Exam Vital Signs Vital Signs Date Time Temp Pulse Resp B/P (MAP) Pulse Ox O2 Delivery O2 Flow Rate FiO2 04/05/21 07:20 37.4 87 20 142/86 (104) 98 Room Air Capillary Refill : Less Than 3 Seconds General Appearance: No Apparent Distress, Obese Respiratory: Chest Non Tender, Lungs Clear, Normal Breath Sounds, No Accessory Muscle Use, No Respiratory Distress Cardiovascular: Regular Rate, Rhythm, No Edema, No Gallop, No JVD, No Murmur, Normal Peripheral Pulses Gastrointestinal: Normal Bowel Sounds, No Organomegaly, No Pulsatile Mass, Non Tender, Soft Results/Procedures Lab Laboratory Tests 04/05/21 05:50 Patient resulted labs reviewed. Assessment/Plan Assessment and Plan Assess & Plan/Chief Complaint (1) Nausea and vomiting Status: Acute Assessment & Plan: Ondansetron, promethazine, IVF.04/05 improving patient reports past cholecystectomy continue current antiemetics. (2) Dehydration Status: Acute Assessment & Plan: NS @ 150 mls/hr, check labs. (3) Diarrhea Status: Acute Assessment & Plan: Check stool studies including c diff given recent antibiotic use.04/05 C. difficile negative other enteric pathogen studies pending (4) Diabetes mellitus Status: Chronic Assessment & Plan: Sliding scale insulin Qualifiers: (5) COPD (chronic obstructive pulmonary disease) Status: Chronic Assessment & Plan: No evidence of exacerbation. (6) Hypertension Status: Chronic Assessment & Plan: Resume home meds as needed. (7) Obesity Status: Chronic (8) Atrial fibrillation Status: Chronic Assessment & Plan: Unable to keep down PO, will use treatment dose enoxaparin for now. 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 04/05 considering that her headache is a little bit different and also in light of nausea and vomiting will repeat noncontrast CT head to ensure that there is been no bleeding or overt evidence for increased intracranial pressure. FILI BRITT MD Apr 05, 2021 08:50
[2021-04-05] MEDS: ONDANSETRON 4 MG/2 ML (SDV) Z0FRAN IVP PRN ×2 (08:59→15:56)
--- NOTE | 2021-04-05 09:35 | Diagnostic Imaging Report ---
Clinical Indications: Patient with dehydration, nausea, vomiting and history of glioblastoma surgery. Exam: Axial CT scan of the brain without IV contrast with coronal and sagittal reformatted images. Auto Exposure Controls were utilized during the CT exam to meet ALARA standards for radiation dose reduction. Comparison: Head CT without contrast dated 03/07/2021. Findings: Again seen craniotomy involving left posterior aspect of the head with suspected resection changes involving the left parietoccipital region. There is residual small amount of amorphous low density in the region which appears slightly increased in the interim. There is no brain herniation midline shift. There is no hydrocephalus. There is no intracranial hemorrhage. Basal cisterns are unremarkable. Besides postoperative changes, the extracranial soft tissues, skull, and orbits are unremarkable. There is mild mucosal thickening involving the right maxillary sinus. Mastoid air cells are clear. Impression: 1: Again seen are postop changes with craniotomy involving the left posterior aspect of the skull and resection changes of the left parieto-occipital region. There is slight increase amorphous low density in the left parieto-occipital region. There is no significant brain herniation or midline shift. MRI of the brain with without IV contrast would better evaluate. 2: Otherwise, there is no acute abnormality. Dictated by: Dictated on workstation # [id number]
[2021-04-05 11:05] VITALS: BP 129/89
[2021-04-05 16:00] VITALS: BP 154/88
[2021-04-05 20:00] VITALS: BP 144/89
[2021-04-05 23:18] VITALS: BP 138/85
[2021-04-05] MEDS ORDERED: ACETAMINOPHEN 500 MG TAB (TYLENOL) ONE (23:39)
[2021-04-05] MEDS ORDERED: ACETAMINOPHEN 500 MG TAB (TYLENOL) PO PRN (23:45)
[2021-04-06] MEDS: NS IV 1000 ML 1,000 ML IV SCH ×2 (04:02→10:42)
[2021-04-06 04:07] VITALS: BP 127/72
[2021-04-06] MEDS: inSUlin ASPART (NovoLOG) 1 UNIT/0.01 ML (CHARGE PER UNIT) SC SCH ×4 (05:11→20:04)
[2021-04-06] MEDS: METOCLOPRAMIDE INJ 10 MG/2 ML (REGLAN) IVP SCH ×4 (05:11→23:39)
[2021-04-06] MEDS: ONDANSETRON 4 MG/2 ML (SDV) Z0FRAN IVP PRN (07:40)
[2021-04-06] MEDS: ENOXAPARIN 100 MG/1 ML (LOVENOX) SYR SC SCH ×2 (07:40→20:04)
[2021-04-06] MEDS: PANTOPRAZOLE 40 MG (PROTONIX) VIAL IVP SCH (07:41)
[2021-04-06 07:50] VITALS: BP 159/84
--- NOTE | 2021-04-06 10:12 | Progress Note - Hospitalist ---
Subjective HPI/CC On Admission Date Seen by Provider: Apr 06, 2021 Time Seen by Provider: 07:00 Subjective/Events-last exam Patient continues to complain of intermittent nausea headache currently resolved. She did have a T-max of 38.1 yesterday without rigors denies chest pain where her port was removed has a mild cough small amount of sputum that she reports is nonpurulent denies dysuria. Noncontrast CT head did not reveal any evidence for bleeding or hydrocephalus there may or may not be an increase in tumor volume per radiologist no midline shift issues. Objective Exam Vital Signs Vital Signs Date Time Temp Pulse Resp B/P (MAP) Pulse Ox O2 Delivery O2 Flow Rate FiO2 04/06/21 08:00 100 Room Air 04/06/21 07:50 37.0 77 16 159/84 (109) Capillary Refill : Less Than 3 Seconds General Appearance: No Apparent Distress, Chronically ill Respiratory: Chest Non Tender, Lungs Clear, Normal Breath Sounds, No Accessory Muscle Use, No Respiratory Distress, Other (Decreased breath sounds in the bases without wheezes rales or rhonchi) Cardiovascular: Regular Rate, Rhythm, No Edema, No Gallop, No JVD, No Murmur, Normal Peripheral Pulses Results/Procedures Lab Patient resulted labs reviewed. Assessment/Plan Assessment and Plan Assess & Plan/Chief Complaint (1) Nausea and vomiting Status: Acute Assessment & Plan: Ondansetron, promethazine, IVF.04/05 improving patient reports past cholecystectomy continue current antiemetics. (2) Dehydration Status: Acute Assessment & Plan: NS @ 150 mls/hr, check labs. (3) Diarrhea Status: Acute Assessment & Plan: Check stool studies including c diff given recent antibiotic use.04/05 C. difficile negative other enteric pathogen studies pending (4) Diabetes mellitus Status: Chronic Assessment & Plan: Sliding scale insulin Qualifiers: (5) COPD (chronic obstructive pulmonary disease) Status: Chronic Assessment & Plan: No evidence of exacerbation. (6) Hypertension Status: Chronic Assessment & Plan: Resume home meds as needed. (7) Obesity Status: Chronic (8) Atrial fibrillation Status: Chronic Assessment & Plan: Unable to keep down PO, will use treatment dose enoxaparin for now. 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 04/05 considering that her headache is a little bit different and also in light of nausea and vomiting will repeat noncontrast CT head to ensure that there is been no bleeding or overt evidence for increased intracranial pressure. 04/06 headache improved no evidence for bleeding or increase intracranial pressure on CT scan. Patient temperature was up to 38.1 yesterday. She is growing staph preliminary not MRSA from a wound culture from port removal it was felt to be infected. The site reveals no induration or obvious evidence for infection. Will obtain a procalcitonin level if elevated at all will initiate staph coverage as long as the patient did not have anaphylaxis to penicillin will likely initiate Ancef if procalcitonin level is elevated. If not continue to monitor and for nausea which has been rather chronic for her will increase metoclopramide to 10 mg for now IV scheduled every 6. FILI BRITT MD Apr 06, 2021 10:12
[2021-04-06 11:09] LABS: CALCIUM 7.6 MG/DL (8.5-10.1)
[2021-04-06 11:11] LABS: BASOPHILS % (AUTO) 1 % (0-10); EOSINOPHILS % (AUTO) 1 % (0-10); HEMATOCRIT 30 % (35-52); HEMOGLOBIN 9.3 g/dL (11.5-16.0); LYMPHOCYTES # (AUTO) 0.6 10^3/uL (1.0-4.0); LYMPHOCYTES % (AUTO) 15 % (12-44); MEAN CORPUSCULAR HEMOGLOBIN 23 pg (25-34); MEAN CORPUSCULAR HGB CONC 31 g/dL (32-36); MEAN CORPUSCULAR VOLUME 75 fL (80-99); MEAN PLATELET VOLUME 10.6 fL (9.0-12.2); MONOCYTES # (AUTO) 0.3 10^3/uL (0.0-1.0); MONOCYTES % (AUTO) 8 % (0-12); NEUTROPHILS % (AUTO) 76 % (42-75); PLATELET COUNT 288 10^3/uL (130-400)
[2021-04-06 11:13] LABS: CREATININE SERUM 0.66 MG/DL (0.60-1.30)
[2021-04-06 11:15] LABS: MAGNESIUM 1.5 MG/DL (1.6-2.4)
[2021-04-06 12:08] VITALS: BP 144/100
[2021-04-06] MEDS ORDERED: SIMETHICONE 80 MG (MYLICON) CHEW PO SCH ×2 (14:00→14:30)
[2021-04-06] MEDS ORDERED: ASPIRIN 81 MG CHEW (CHILDREN'S ASA) PO ONE (14:15)
[2021-04-06] MEDS ORDERED: NITROGLYCERIN 0.4 MG SL TABS BTL 25'S SL PRN (14:15)
[2021-04-06] MEDS: MAGNESIUM 1 GM/100 ML IVPB 100 ML IV SCH ×2 (14:21→15:23)
[2021-04-06] MEDS: POTASSIUM CL 10MEQ/50ML IVPB 50 ML IV SCH ×2 (14:21→15:23)
[2021-04-06 16:00] VITALS: BP 126/74
[2021-04-06 20:01] VITALS: BP 176/86
[2021-04-06] MEDS: morphine INJ 4 MG/ML 1 ML (VIAL/SYRINGE) IVP PRN (22:07)
[2021-04-06 23:57] VITALS: BP 135/82
[2021-04-07 03:22] LABS: BASOPHILS % (AUTO) 0 % (0-10); EOSINOPHILS % (AUTO) 1 % (0-10); HEMATOCRIT 29 % (35-52); HEMOGLOBIN 9.3 g/dL (11.5-16.0); LYMPHOCYTES # (AUTO) 0.6 10^3/uL (1.0-4.0); LYMPHOCYTES % (AUTO) 19 % (12-44); MEAN CORPUSCULAR HEMOGLOBIN 24 pg (25-34); MEAN CORPUSCULAR HGB CONC 32 g/dL (32-36); MEAN CORPUSCULAR VOLUME 74 fL (80-99); MONOCYTES # (AUTO) 0.3 10^3/uL (0.0-1.0); MONOCYTES % (AUTO) 10 % (0-12); NEUTROPHILS # (AUTO) 2.4 10^3/uL (1.8-7.8); NEUTROPHILS % (AUTO) 70 % (42-75); PLATELET COUNT 279 10^3/uL (130-400); WHITE BLOOD COUNT 3.4 10^3/uL (4.3-11.0)
[2021-04-07 03:32] LABS: POTASSIUM 3.1 MMOL/L (3.6-5.0)
[2021-04-07 03:33] LABS: CALCIUM 7.5 MG/DL (8.5-10.1)
[2021-04-07 03:37] LABS: CREATININE SERUM 0.64 MG/DL (0.60-1.30)
[2021-04-07] MEDS: NS IV 1000 ML 1,000 ML IV SCH (03:49)
[2021-04-07 04:00] VITALS: BP 122/70
[2021-04-07] MEDS: inSUlin ASPART (NovoLOG) 1 UNIT/0.01 ML (CHARGE PER UNIT) SC SCH ×2 (05:09→11:50)
[2021-04-07] MEDS: METOCLOPRAMIDE INJ 10 MG/2 ML (REGLAN) IVP SCH ×2 (05:09→13:18)
[2021-04-07 08:00] VITALS: BP 154/90
[2021-04-07] MEDS: ENOXAPARIN 100 MG/1 ML (LOVENOX) SYR SC SCH (08:50)
[2021-04-07] MEDS: PANTOPRAZOLE 40 MG (PROTONIX) VIAL IVP SCH (08:50)
[2021-04-07] MEDS ORDERED: ASPIRIN 81 MG CHEW (CHILDREN'S ASA) PO SCH (09:00)
[2021-04-07] MEDS ORDERED: KCL 20 MEQ TAB (K-DUR) PO ONE (09:30)
[2021-04-07] MEDS ORDERED: OXC5T PO (10:47)
[2021-04-07] MEDS ORDERED: CEPH250C PO (10:47)
--- NOTE | 2021-04-07 10:48 | D/C HH Face to Face Order ---
D/C Face to Face Orders Reconcile Patient Problems Problems Reviewed?: Yes Instructions for Patient Via [facility], Patient Instructions/FollowUp: [facility] 1 week Physician to follow Patient: [facility] Discharge Diet for Home: No Restrictions Patient Problems: Glioblastoma Patient Data-Allergies,Ht & Wt Patient Allergies: Coded Allergies: estradiol (Unverified Allergy, Severe, RASH/TIA, 11/14/19) Penicillins (Unverified Allergy, Mild, Hives, Pt has rec Ancef in the past, 04/07/21) povidone-iodine (Unverified Allergy, Mild, Hives, 06/28/19) soap (Unverified Adverse Reaction, Unknown, 08/08/20) Height (Feet): 5 Height (Inches): 0 Weight (Pounds): 303 Weight (Ounces): 6.0 Home Health Need/Face to Face Date of Face to Face: Apr 07, 2021 Clinical Findings: Generalized weakness and fatigue, Immune-compromised, Instability, Muscle weakness I have seen Pt [id number]: Yes Discharged To: Home Diagnosis/Conditions: GB Patient is Homebound due to: Nataly fall risk due to instabilty, Muscle weakness Homebound Status Due to the above stated illness, injury or surgical procedure (medical condition or diagnosis) and associated clinical findings, the patient is homebound because of his/her inability to leave home except with aid of a supportive device and/or person AND leaving the home requires a considerable and taxing effort or is medically contraindicated. Pt req the following assistanc: [facility] Nursing Orders Home Health Services Order: Nursing Services, Clinical Ob-Evaluate & Treat, Physical Therapy-Evaluate & Treat Home Health Infusion Therapy Line Start Date: Apr 03, 2021 Certify Stmt I certify that this patient is under my care and that I, a nurse practitioner or a physician; a offset assistant press operator working with me, had a face to face encounter that - meets the physician face to face encounter requirements with this patient as dated. JAMAAL POWERS DO Apr 07, 2021 10:48
[2021-04-07] MEDS: CEPHALEXIN 250 MG (KEFLEX) CAP PO SCH ×2 (10:49→13:18)
--- NOTE | 2021-04-07 10:49 | Discharge Summary ---
Discharge Summary Hospital Course Was the Problem List Reviewed?: Yes Problems/Dx: (1) Dehydration Status: Acute (2) Chronic nausea Status: Acute (3) Hypokalemia Status: Acute (4) Glioblastoma multiforme of brain Status: Chronic Hospital Course Date of Admission: Apr 03, 2021 at 15:30 Admission Diagnosis : Family Physician/Provider: Avis Parrish MD Date of Discharge: 04/07/21 Discharge Diagnosis: Acute on chronic nausea and vomiting, hypokalemia, glioblastoma, removed port site MSSA Hospital Course: Hospital course: Pt had an uneventful five day hospital course, she was admitted for dehydration, nausea and vomiting, found to have hypokalemia that was supplemented with oral medication. She did have MSSA culture from the port site that removed, she was placed on Keflex at discharge and was stable for discharge. Labs and Pending Lab Test: Laboratory Tests 04/06/21 11:36: Glucometer 119H 04/06/21 15:12: Glucometer 127H 04/06/21 20:00: Glucometer 109 04/07/21 03:18: White Blood Count 3.4L, Red Blood Count 3.93, Hemoglobin 9.3L, Hematocrit 29L, Mean Corpuscular Volume 74L, Mean Corpuscular Hemoglobin 24L, Mean Corpuscular Hemoglobin Concent 32, Red Cell Distribution Width 23.5H, Platelet Count 279, M gonzalo Platelet Volume 10.0, Immature Granulocyte % (Auto) 1, Neutrophils (%) (Auto) 70, Lymphocytes (%) (Auto) 19, Monocytes (%) (Auto) 10, Eosinophils (%) (Auto) 1, Basophils (%) (Auto) 0, Neutrophils # (Auto) 2.4, Lymphocytes # (Auto) 0.6L, Monocytes # (Auto) 0.3, Eosinophils # (Auto) 0.0, Basophils # (Auto) 0.0, Immature Granulocyte # (Auto) 0.0, Sodium Level 137, Potassium Level 3.1L, Chloride Level 108H, Carbon Dioxide Level 17L, Anion Gap 12, Blood Urea Nitrogen 3L, Creatinine 0.64, Estimat Glomerular Filtration Rate 99, BUN/Creatinine Ratio 5, Glucose Level 96, Calcium Level 7.5L Microbiology 04/04/21 C. difficile GDH Antigen & Toxins - Final, Complete 04/04/21 Stool Culture - Final, Complete 04/03/21 Gram Stain - Final, Complete 04/03/21 Wound Culture - Final, Complete Staphylococcus aureus Gram Pos Mixed Bacterial Vy Home Meds Active Oxyir Tablet (Oxycodone HCl) 5 Mg Tab 5 Mg PO BID Cephalexin 250 Mg Capsule 500 Mg PO QID Reported Potassium Chloride 20 Meq Tab.er.prt 20 Meq PO DAILY Ondansetron HCl 8 Mg Tablet 8 Mg PO Q8H PRN Promethazine Tablet (Promethazine HCl) 25 Mg Tablet 25 Mg PO Q6H PRN Fluoxetine HCl 40 Mg Capsule 40 Mg PO DAILY Folic Acid 1 Mg Tablet 1 Mg PO DAILY Eliquis (Apixaban) 5 Mg Tablet 5 Mg PO BID Emgality (Galcanezumab-Gnlm) 120 Mg/1 Ml Pen.injctr 120 Mg INJ MONTHLY Tums Ultra (Calcium Carbonate) 400 Mg Tab.chew 400-800 Mg PO PRN PRN Ubrelvy (Ubrogepant) 50 Mg Tablet 50 Mg PO DAILY PRN MDD 50MG Atorvastatin Calcium 20 Mg Tablet 20 Mg PO DAILY Famotidine 20 Mg Tablet 20 Mg PO BID Pantoprazole Sodium 40 Mg Tablet.dr 40 Mg PO DAILY Hydroxyzine HCl 25 Mg Tablet 25 Mg PO Q8H PRN Metformin HCl 1,000 Mg Tablet 1,000 Mg PO BID WITH MEALS Tizanidine HCl 2 Mg Tablet 2 Mg PO TID PRN Propranolol HCl ER (Propranolol HCl) 120 Mg Cap.sa.24h 120 Mg PO DAILY Ventolin Hfa (Albuterol Sulfate) 1 Puff Puff 2 Puff INH QID PRN Topiramate 50 Mg Tablet 150 Mg PO BID TAKES 3 (50MG) TABLETS Assessment/Pt Instructions [facility] in 1 week Discharge Planning: <30 minutes discharge planning Discharge Instructions Discharge Diet: No Restrictions Activity as Tolerated: Yes Discharge Physical Examination Vital Signs Vital Signs Date Time Temp Pulse Resp B/P (MAP) Pulse Ox O2 Delivery O2 Flow Rate FiO2 04/07/21 08:00 37.0 75 20 154/90 (111) 98 Room Air General Appearance: No Apparent Distress, WD/WN, Chronically ill, Obese Respiratory: Lungs Clear, Normal Breath Sounds Cardiovascular: Regular Rate, Rhythm Neurologic/Psychiatric: Alert, Oriented x3 Allergies: Coded Allergies: estradiol (Unverified Allergy, Severe, RASH/TIA, 11/14/19) Penicillins (Unverified Allergy, Mild, Hives, Pt has rec Ancef in the past, 04/07/21) povidone-iodine (Unverified Allergy, Mild, Hives, 06/28/19) soap (Unverified Adverse Reaction, Unknown, 08/08/20) Discharge Summary Date of Admission Apr 03, 2021 at 15:30 Date of Discharge Discharge Date: Apr 07, 2021 JAMAAL POWERS DO Apr 07, 2021 10:49
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
[2021-04-07 12:00] VITALS: BP 139/97
--- NOTE | 2021-04-07 13:06 | Progress Note ---
STACEY HEWITT 04/07/21 1306: Progress Note Claribel Lombardi is a 50yo female with a past medical history of COPD, HTN, GERD, atrial fibrillation, and Glioblastoma multiforme s/p chemo and radiation who was admitted to [facility] on 04/03 for management of nausea, vomitting and diarrhea. Patient was a direct admission from oncology appointment. On admission patient was having 8 bowel movements per day. Nausea and vomiting were managed with zofran, promethazine and IVF. Stool samples negative for c. diff. Diarrhea managed with metoclopramide. By 04/07 all of these symptoms had resolved. Several other problems were managed during this admission. Patient reported persistent stable headaches. CT of the head showed no acute changes. Patient had superficial cellulitis where he port was removed in February 2021. Cultures from the site grew MSSA. Wound managed with wound care, and improved by 04/07. Patient's prior diagnosis of atrial fibrillation, HTN and GERD were managed with home medications. Patient was discharged 04/07 home, where she will continue her home health. All questions and concerns were answered. JAMAAL POWERS DO 04/08/21 0531: Supervisory-Addendum Brief Verification & Attestation Participated in pt care: history, MDM, physical Personally performed: exam, history, MDM, supervision of care Care discussed with: Medical Student Procedures: n/a Results interpretation: Verified all documentation Verification and Attestation of Medical Student E/M Service A medical student performed and documented this service in my presence. I reviewed and verified all information documented by the medical student and made modifications to such information, when appropriate. I personally performed the physical exam and medical decision making. Jamaal Powers, Apr 08, 2021,05:31 STACEY HEWITT Apr 07, 2021 13:06 JAMAAL POWERS DO Apr 08, 2021 05:31
--- NOTE | 2021-04-07 14:25 | Occ Therapy Progress Note ---
Therapy Progress Note OT orders received. Pt discharged prior to OT evaluation, d/c from OT. CHARISSE SILVA OT Apr 07, 2021 14:25
[2021-04-07] MEDS ORDERED: KCL 20 MEQ TAB (K-DUR) PO SCH (18:00)
== END 2021-04-07 10:45 | disposition home or self-care (01) ==
LOC: EDSTATUS 10:47 → 4TH 15:30 → UNDOADMIN 15:30 → 4TH 04-07 13:02 → UNDODISIN 04-07 13:39
PROVIDERS: ADMIT Family Medicine; ATTEND Family Medicine
DX: E86.0 Dehydration (principal); R19.7 Diarrhea, unspecified; C71.9 Malignant neoplasm of brain, unspecified; F17.210 Nicotine dependence, cigarettes, uncomplicated; K21.9 Gastro-esophageal reflux disease without esophagitis; J44.9 Chronic obstructive pulmonary disease, unspecified; E11.9 Type 2 diabetes mellitus without complications; G47.33 Obstructive sleep apnea (adult) (pediatric); I48.0 Paroxysmal atrial fibrillation; K31.89 Other diseases of stomach and duodenum; E66.9 Obesity, unspecified; E87.6 Hypokalemia; T14.8XXA Other injury of unspecified body region, initial encounter; Z68.34 Body mass index [BMI] 34.0-34.9, adult; Z79.899 Other long term (current) drug therapy; Z79.84 Long term (current) use of oral hypoglycemic drugs; Z79.01 Long term (current) use of anticoagulants
CPT/HCPCS: 36569; 70450; 76937; 80048 ×3; 80053 ×2; 81000; 82274; 82947 ×4; 83735 ×2; 84145; 85025 ×3; 85027 ×2; 87015; 87045; 87046; 87070; 87077; 87186; 87205; 87324; 87449; 87899; 93005; 97162; C1751; G0378; G0379; 36415; 99211

== ENCOUNTER 2021-04-03 13:19 | Outpatient (RCR) | payer MEDICARE, MEDICAID ==
[~2021-04-03 13:19] MED LIST changes: -CLIN150C18 PO; +CLIN150C20 PO; +CYCL10TA25 PO; -CYCL10TA9 PO; +DICY20TA PO; -DICY20TA10 PO; -FLUO20CA46 PO; +FLUO20CA48 PO; -MAGN400T8 PO; +MGX400T PO; +POTA-169 PO; -POTA20TA8 PO
[2021-04-03 13:32] LABS: BASOPHILS % (AUTO) 1 % (0-10); EOSINOPHILS # (AUTO) 0.1 10^3/uL (0.0-0.3); EOSINOPHILS % (AUTO) 2 % (0-10); HEMATOCRIT 39 % (35-52); HEMOGLOBIN 11.6 g/dL (11.5-16.0); LYMPHOCYTES # (AUTO) 0.9 10^3/uL (1.0-4.0); LYMPHOCYTES % (AUTO) 17 % (12-44); MEAN CORPUSCULAR HEMOGLOBIN 23 pg (25-34); MEAN CORPUSCULAR HGB CONC 30 g/dL (32-36); MEAN CORPUSCULAR VOLUME 78 fL (80-99); MEAN PLATELET VOLUME 10.5 fL (9.0-12.2); MONOCYTES # (AUTO) 0.5 10^3/uL (0.0-1.0); MONOCYTES % (AUTO) 9 % (0-12); NEUTROPHILS % (AUTO) 72 % (42-75); PLATELET COUNT 367 10^3/uL (130-400); WHITE BLOOD COUNT 5.5 10^3/uL (4.3-11.0)
[2021-04-03] MEDS ORDERED: SUCRALFATE 1 GM (CARAFATE) TAB PO ONE (14:15)
[2021-04-03] MEDS ORDERED: NS IV 1000 ML (CANCER CTR) 0 ML ONE (14:16)
[2021-04-04] MEDS ORDERED: POTA-179 PO (10:50)
[2021-04-04] MEDS ORDERED: PROM25TA14 PO (10:50)
[2021-04-04] MEDS ORDERED: POTA-51 PO (10:50)
[2021-04-04] MEDS ORDERED: OXYC1TAB11 PO (10:50)
[2021-04-04] MEDS ORDERED: ONDA-106 PO (10:50)
[2021-04-07] MEDS ORDERED: CEPH250C PO (10:47)
[2021-04-07] MEDS ORDERED: OXC5T PO (10:47)
[2021-04-14] MEDS ORDERED: OXYC5TAB PO (14:54)
[2021-04-16] MEDS ORDERED: ASPI325T32 PO (15:49)
[2021-04-16] MEDS ORDERED: DEXA1TAB PO (15:49)
== END 2021-07-02 | disposition home or self-care (01) ==
LOC: ONC 13:19
PROVIDERS: ATTEND Internal Medicine Hematology & Oncology
DX: C71.9 Malignant neoplasm of brain, unspecified (principal); D50.9 Iron deficiency anemia, unspecified; E11.9 Type 2 diabetes mellitus without complications; E78.00 Pure hypercholesterolemia, unspecified; Z98.890 Other specified postprocedural states
CPT/HCPCS: 85025; G0463; 99213